=== PATIENT | male | born 1985 | race Caucasian/White ===

== ENCOUNTER 2019-07-19 08:37 | Inpatient (IN) | payer OTHER, SELFPAY ==
[2019-06-10 16:05] VITALS: BMI 34.4
--- NOTE | 2019-07-18 22:54 | PCM.HP.BLA ---
History and Physical Date of Admission: 07/19/19 HISTORY OF PRESENT ILLNESS 34 year old man presents with recent flare ups of hidradenitis in his abdominal wall skin crease. There is increased redness, and swelling, and pain. He recently completed Doxycycline antibiotics. He has associated abdominal wall skin crease intertrigo for which he uses powders for relief. He also has hidradenitis in his left axilla, bilateral inguinal/medial thigh and left gluteal/perianal areas that are intermittently symptomatic but are stable at this time. He has seen Dermatology in the past for his hidradenitis. He was placed on Rifampin and Clindamycin in the past. He has also been on Doxycycline. His infected areas have been cultured in the past. Today he denies fever. He denies trauma. Most of his painful symptomatology at this time involves his abdominal wall skin crease. Patient has diabetes mellitus, and his last HgbA1c according to the patient is 8.2 from 04/27. He presents at this time for further evaluation and treatment. PAST MEDICAL HISTORY Back problem Diabetes Fatty liver Hearing problem Hidradenitis Meniere's disease Recurrent infections Vitamin deficiency PAST SURGICAL HISTORY excision of pilonidal cyst hemilaminotomy ALLERGIES sulfamethoxazole [From Bactrim] trimethoprim [From Bactrim] MEDICATIONS aspirin calcium carb calcium carbonate-vitamin D2-minerals doxycycline hyclate famotidine glimepiride metformin omeprazole varenicline FAMILY HISTORY Uncle - Alcohol abuse Aunt - Alcohol abuse Grandfather -Alcohol abuse Sister -Anemia, Anxiety, Diabetes Mother - Anemia, Diabetes, Heart disease, CVA (cerebral vascular accident) Father - Bone cancer, COPD (chronic obstructive pulmonary disease) SOCIAL HISTORY Smoking Status: Current every day smoker counseling given: provider counseling, counseling >10 minutes alcohol intake: never substance use type: does not use REVIEW OF SYSTEMS General - Denies fever and weight loss. Has fatigue. Eyes - Denies cataracts and glaucoma. ENT - Denies nasal congestion and sore throat. Endocrine - Denies excessive thirst and urination. Patient has diabetes mellitus. Skin - Denies skin cancer. Has multiple areas of hidradenitis. Musculoskeletal - Has joint pain, joint stiffness, back pain, and arthritis. Denies weakness of muscles and joints. Neuro - Denies headaches. Has lightheadedness. Cardiovascular - Denies chest pain and shortness of breath with exertion. Has fatigue and lightheadedness. Psych - Denies anxiety and depression. Respiratory - Denies chronic cough and shortness of breath. Has sleep apnea. Patient is a smoker. Gastrointestinal - Denies nausea, vomiting, diarrhea, and constipation. Hematologic - Denies abnormal bruising and bleeding. Genitourinary - Denies hematuria and urinary frequency. PHYSICAL EXAMINATION General - Alert and Oriented. HEENT - PERRL. EOMI. Throat is clear. No suspicious lesions noted. Neck - Supple and nontender. No cervical adenopathy. No suspicious lesions noted. Lungs - Clear to auscultation. Heart - Regular rate and rhythm. Abdomen - Soft and nondistended. Has an abdominal panniculus. Has evidence of abdominal wall skin crease intertrigo. In the abdominal wall skin crease is an area of hidradenitis. Measures 15 cm. Has some yellowish drainage. Surrounding firmness from fat necrosis. Tenderness to palpation. There is induration and redness. Has hidradenitis in bilateral inguinal/medial thigh areas that is stable at present. Some induration present. Nontender. Areas measure 12 cm. Extremities - FROM. No axillary adenopathy. Radial pulses are palpable. In the left axillary area is a nodule that is consistent with hidradenitis. It is indurated. No purulent drainage. Mild redness present. No ulceration. Back - In the left gluteal/perianal area is some induration from previous hidradenitis. No purulent drainage at present. Nontender. Neuro - CN II-XII grossly intact. Psych - Normal mood and affect. ASSESSMENT 1. Abdominal wall skin crease hidradenitis with fat necrosis. 2. Abdominal panniculus. 3. Abdominal wall skin crease intertrigo. 4. Left axillary hidradenitis, stable. 5. Left gluteal/perianal hidradenitis, stable. 6. Bilateral inguinal/medial thigh hidradenitis, stable. 7. Diabetes mellitus. 8. Smoker. PLAN Recommend excision of his symptomatic hidradenitis in his abdominal wall skin crease. There is some surrounding fat necrosis and drainage consistent with a necrotizing soft tissue infection. Will send tissue to Pathology for analysis to rule out carcinoma and to Microbiology for culture. A positive culture will necessitate antibiotic therapy. With his associated abdominal panniculus, a panniculectomy will be performed as well to minimize further infection in the area. After excisional debridement of this necrotizing soft tissue infection, will leave the wound open and begin postop wound care with the VAC. After discharge he will followup at the Wound Center. The other areas of hidradenitis involving the left axilla, bilateral inguinal/medial thigh areas and left gluteal/perianal area are stable at this time. They may need to be excised in the future. Depending on the size of the wound on his left gluteal/perianal area, if there is stool contamination, then a temporary diverting colostomy will need to be done. He is aware of that and voices understanding. Until the surgery, will place him back on antibiotics. He has tolerated the Doxycycline so will renew that. If there is a plateau in the healing of the abdominal wall when seen at the Wound Center, then can proceed with delayed closure with skin grafting or advancing the abdominal wall skin flap. Before any attempts at elective wound closure are done, his HgbA1c will need to be below 8. At present it is 8.2. Surgery will be under general anesthesia with a surgical observation overnight stay in the hospital. Patient was informed of the risks and complications of the procedure including alternatives to surgery. These were discussed with the patient personally. Patient voices understanding and wishes to proceed. Some of the risks and complications were included in a form from the [employer]. Encouraged patient to stop smoking as it may have deleterious effects on wound healing.
[2019-07-19] VITALS (13 sets, daily range): BP systolic 99–144; BP diastolic 57–81; PULSE 63–100; RESP 16–18; TEMP 36.1–37.1; O2SAT 92–99; BMI 36.4
[2019-07-19] MEDS: Lactated Ringers 1,000 ML 100 ML IV ×2 (06:46→08:30)
[2019-07-19 07:06] LABS: Bedside Glucose 153 mg/dL (70-110)
[2019-07-19] MEDS: Pantoprazole Sodium 40 MG Tablet PO (07:15)
[2019-07-19] MEDS: Cefazolin 2 GM in 0.9% Normal Saline 100 ML IV (07:26)
--- NOTE | 2019-07-19 07:30 | DEB_PTH ---
PATIENT: BRITTANY YOUNG LOC: [facility] U#:[id number] AGE/SX: 34/M ROOM: [facility]319 RE07/19/[address]: Dr. Rohit Luis MD : 1985 BED: 1 DIS: 07/20/2019 SPEC #: [id number] RECD: 07/19/19 09:01 STATUS: ANYI RERoe #: [id number] AUGUST: 07/19/19 07:[address]: Rohit Luis DEPT: SURGICAL PATHOLOGY RECD BY: Yusuf Evans ENTERED: 07/19/19 10:39 SP TYPE: [facility] DR: Dr. Miryam Jensen MD Tissues: Abdominal wall, NOS Procedures: Surgery Specimen Level III HEADER OPERATION: Prep abdominal wall with excisional debridement skin subcutaneous PRE-OP DIAGNOSIS: Abdominal wall skin crease hidradenitis with fat necrosis TISSUE SUBMITTED: Debrided soft tissue abdominal wall MICROSCOPIC DIAGNOSIS Debrided soft tissue abdominal wall: A piece of skin with underlying tissue with focal mild chronic inflammation. SANDRO:krystina 07/20/19 MICROSCOPIC DESCRIPTION Slides are reviewed. GROSS DESCRIPTION Received in fixative is one container labeled with the patient's name and designated debrided soft tissue abdominal wall. The specimen consists of a piece of skin with underlying tissue measuring 30 x 15 cm and up to 5 cm in thickness. A focal area of ulceration is noted. Sections do not reveal any mass lesion. Diesel Electrician sections are submitted in two cassettes. / SANDRO:krystina 07/19/19 TC:3 CPT: 52005
--- NOTE | 2019-07-19 08:24 | OP.PCM_ITS ---
Report of Operation Date of Procedure: 07/19/19 Pre-Operative Diagnosis: 1. Abdominal wall skin crease hidradenitis with fat necrosis. 2. Abdominal panniculus. 3. Abdominal wall skin crease intertrigo. 4. Diabetes mellitus. 5. Smoker. Post-Operative Diagnosis: 1. Abdominal wall skin crease hidradenitis with necrotizing soft tissue infection. 2. Abdominal panniculus. 3. Abdominal wall skin crease intertrigo. 4. Diabetes mellitus. 5. Smoker. Surgery/Procedure Performed:: 1. Surgical preparation abdominal wall with excisional debridement skin and subcutaneous tissue and fascia necrotizing soft tissue hidradenitis infection (492 cm2). 2. Abdominal panniculectomy. Description of Surgical Findings:: 34 year old man presents with recent flare ups of hidradenitis in his abdominal wall skin crease. There is increased redness, and swelling, and pain. He recently completed Doxycycline antibiotics. He has associated abdominal wall skin crease intertrigo for which he uses powders for relief. He also has hidradenitis in his left axilla, bilateral inguinal/medial thigh and left gluteal/perianal areas that are intermittently symptomatic but are stable at this time. He has seen Dermatology in the past for his hidradenitis. He was placed on Rifampin and Clindamycin in the past. He has also been on Doxycycline. His infected areas have been cultured in the past. Today he denies fever. He denies trauma. Most of his painful symptomatology at this time involves his abdominal wall skin crease. Patient has diabetes mellitus, and his last HgbA1c according to the patient is 8.2 from 04/27. Patient was informed of the risks and complications of the procedure including alternatives to surgery. These were discussed with the patient personally. Patient voices understanding and wishes to proceed. Some of the risks and complications were included in a form from the [employer]. Encouraged patient to stop smoking as it may have deleterious effects on wound healing. Size of defect abdominal wall - 12 x 41 x 5 cm. sheriff's officer: None Type of Anesthesia:: General Specimen's removed: 1. Abdominal wall hidradenitis necrotizing soft tissue infection to Pathology and Microbiology. 2. MRSA Wound DNA by PCR. Drains: None. Estimated Blood Loss (mL): 50 ml. Description of Procedure: Patient was taken to OR in supine position and was placed under general anesthesia. The abdominal wall was prepped and draped in the usual fashion. SCD's were placed for DVT prophylaxis. Perioperative antibiotics were given intravenously. Using xylocaine with epinephrine, the abdominal wall was infiltrated. After waiting 5 minutes for the anesthetic to take effect, I proceeded with excisional debridement of the nonhealing hidradenitis infection down into the subcutaneous tissue. A lot of extensive fat necrosis was present. No pus was seen. The fat necrosis extended past Zane's fascia down to the abdominal wall fascia. This extensive fat necrosis was excised and debrided. He also has extensive abdominal wall skin crease intertrigo, and his large abdominal panniculus is at risk for further worsening infection especially with his history of diabetes mellitus. Therefore an abdominal panniculectomy was also performed from lateral abdominal wall to lateral abdominal wall and from the pubic area superiorly to the umbilicus. Tissue excised was sent to Pathology for analysis to rule out carcinoma. Tissue was also sent to [facility] obiology for culture. A positive culture will necessitate antibiotic therapy. MRSA Wound DNA by PCR was also done. The wound was irrigated with saline. Hemostasis was obtained with electrocautery. Dimensions of the abdominal wall wound after surgical preparation abdominal wall with excisional debridement skin and subcutaneous tissue and fascia necrotizing soft tissue hidradenitis infection and abdominal panniculectomy were 41 x 12 x 5 cm or 492 cm2. The wound was then dressed with Mepitel nonadherent dressing followed by Kerlix gauze and Betadine followed by dry Kerlix gauze and ABD compression dressing. An abdominal wall binder was also placed to keep the dressing in place. Patient tolerated the procedure well and was sent to PACU in satisfactory condition. Patient will be sent upstairs for continued postop care. He will continue IV antibiotics. The VAC will be placed tomorrow. Will also check a Prealbumin and encourage nutritional supplementation with protein to help the he aling process. After discharge he will followup at the Wound Center. If there is a plateau in the healing process, can proceed in a delayed fashion further operative debridement and skin grafting. Grafts/Implants Used: None. - Complications None. - Admit VTE Documentation VTE Present on Admission: No VTE Mechan Device Prophylaxis: SCD's VTE Pharm Prophylaxis ordered?: No Code Visit Surgery Charges CPT - 95582 ICD-10 - L73.2, M79.89, E11.9, F17.200 17897 E65, L30.4, L73.2, M79.89, E11.9, F17.200
[2019-07-19 09:05] LABS: Bedside Glucose 144 mg/dL (70-110)
[2019-07-19] MEDS: Ondansetron 4 MG/2 ML Vial IV (10:38)
[2019-07-19] MEDS: Cefazolin 1 GM/50 ML BAG IV ×2 (11:04→21:05)
[2019-07-19 11:13] LABS: M R Staph aureus DNA By PCR Negative (Negative); Probe Check PASS; Specimen Processing Control PASS; Staph aureus DNA By PCR NEGATIVE (Negative)
--- NOTE | 2019-07-19 11:17 | NURSING ---
Talked with who states she is a psych nurse but used to work at [employer] in [place]. feels she will be able to change the VAC dressing at home. plans on observing wound VAC application tomorrow. will see how feels after she sees the wound. may still be a good idea to have home health at least for a while to assist with the dressing changes.
[2019-07-19] MEDS: Lactated Ringers 1,000 ML 60 ML IV ×2 (12:07→21:14)
[2019-07-19] MEDS: HYDROmorphone 1 MG/ML Syringe IV ×2 (12:44→18:38)
[2019-07-19 12:46] LABS: Bedside Glucose 174 mg/dL (70-110)
[2019-07-19] MEDS: proMETHazine 25 MG Tablet PO (12:53)
--- NOTE | 2019-07-19 13:53 | CASEMGMT ---
REDD JONES updated that patient will need HHC at discharge for wound vac dressing changes. REDD JONES provided patient with list of in-network [facility] companys for patient to review. CM will continue to follow this patient and plan for a safe discharge.
[2019-07-19] MEDS: Famotidine 20 MG Tablet PO ×2 (14:26→21:07)
[2019-07-19] MEDS: metFORMIN HCl 850 MG Tablet PO (14:26)
[2019-07-19] MEDS: Pantoprazole Sodium 20 MG Tablet PO (14:26)
[2019-07-19] MEDS: oxyCODONE 5 MG Tablet 10 MG PO ×2 (16:13→21:07)
[2019-07-19] MEDS: Glimepiride 4 MG Tablet PO (16:19)
[2019-07-19 16:30] LABS: Bedside Glucose 222 mg/dL (70-110)
[2019-07-19] MEDS: Docusate Sodium 100 MG Capsule PO (21:05)
[2019-07-19] MEDS: metFORMIN HCl 500 MG Tablet PO (21:07)
[2019-07-19 22:11] LABS: Bedside Glucose 123 mg/dL (70-110)
[2019-07-20] MEDS: HYDROmorphone 1 MG/ML Syringe IV ×4 (01:16→14:52)
[2019-07-20 02:00] VITALS: BP 130/79; PULSE 90; RESP 18; TEMP 37.1; O2SAT 99
[2019-07-20] MEDS: oxyCODONE 5 MG Tablet 10 MG PO ×2 (02:05→12:16)
[2019-07-20 05:37] LABS: Hematocrit 43.3 % (40-54); Hemoglobin 14.3 g/dL (13.0-16.5); Mean Corpuscular Volume 90.8 fL (80-94); Mean Platelet Vol. 9.4 fl (6.2-12.0); Platelet Count 208 K/mm3 (150-450); RBC Distribution Width CV 12.9 % (11.6-14.6); RBC Distribution Width SD 42.5 fl (35.1-43.9); Red Blood Count 4.77 M/mm3 (4.6-6.2); White Blood Count 15.1 K/mm3 (4.4-11.0)
[2019-07-20] MEDS: Cefazolin 1 GM/50 ML BAG IV ×2 (05:38→14:51)
[2019-07-20 05:56] LABS: Bedside Glucose 112 mg/dL (70-110)
[2019-07-20 06:06] LABS: Anion Gap 7 (5-15); BUN 10 mg/dL (7-18); BUN/Creat Ratio 11.5 RATIO (10-20); Calcium,Total 8.1 mg/dL (8.5-10.1); Chloride 109 mmol/L (98-107); Creatinine, Serum 0.87 mg/dL (0.70-1.30); EST Glomerular Filtration Rate 106 mL/min (>60); Est Glom Filt Rate - Afr Amer 128 mL/min (>60); Glucose 107 mg/dL (74-106); Potassium 3.8 mmol/L (3.5-5.1); Prealbumin 16.6 mg/dL (20.0-40.0); Sodium Level 143 mmol/L (136-145)
[2019-07-20 08:57] VITALS: BP 127/71; PULSE 108; RESP 16; TEMP 37.7; O2SAT 96
[2019-07-20] MEDS: Glimepiride 4 MG Tablet PO (08:59)
[2019-07-20] MEDS: metFORMIN HCl 850 MG Tablet PO (08:59)
[2019-07-20] MEDS: Famotidine 20 MG Tablet PO (09:03)
[2019-07-20] MEDS: Docusate Sodium 100 MG Capsule PO (09:03)
[2019-07-20] MEDS: Calcium Carb/Vitamin D 1 TABLET Tablet 2 TABLET PO (09:03)
[2019-07-20 09:35] LABS: Bedside Glucose 178 mg/dL (70-110)
[2019-07-20] MEDS: Pantoprazole Sodium 20 MG Tablet PO (10:35)
[2019-07-20] MEDS: 0.9% NaCl Peripheral Flush Adult/Peds IV ×2 (10:36→14:52)
--- NOTE | 2019-07-20 10:56 | NURSING ---
Called and talked with Chanel Pelletier NP with Dr Luis. She plans to be at the hospital around 1230 or 1300 to assess wound prior to wound VAC application. Pt and aware. will discuss with REDD De La Cruz as well so pain medication can be given prior to the VAC change as well.
[2019-07-20 11:05] VITALS: O2SAT 88
[2019-07-20 11:09] VITALS: O2SAT 95
--- NOTE | 2019-07-20 13:11 | PCM.PN.SRG ---
- Physical Exam General: Alert, Oriented x3, Cooperative HEENT: Atraumatic Oral: Moist Mucosa Lungs: Normal air movement, Wheezes - Inspiratory wheeze right upper anterior lobe. Cardiovascular: Regular rate, Regular Rhythm Abdomen: Soft, Tender Extremities: No edema, Capillary Refill Less than 3 Seconds Skin: Ulcer/ Wound - Lower abdominal wound is beefy pink, looks clean, wound VAC to be applied by wound care nurse Musculoskeletal: No Tenderness to Palpation of Joints or Extremities Neurological: Neuro grossly intact Psych/Mental Status: Normal Affect, Appropriate Vital Signs Temp Pulse Resp BP Pulse Ox 99.8 F H 108 H 16 127/71 H 95 07/20/19 08:57 07/20/19 08:57 07/20/19 08:57 07/20/19 08:57 07/20/19 11:09 Oxygen Flow Rate (L/min) 2 Oxygen Delivery Method Nasal Cannula Weight: 232 lb 12.93 oz Body Mass Index (BMI) 36.4 Finger Stick Blood Glucose 144 Intake and Output for Last 24 Hours 07/18/19 07/19/19 07/20/19 23:59 23:59 23:59 Intake Total 3531.00 / 3531.00 643 / 643 Balance 3531.00 / 3531.00 643 / 643 Microbiology Past 72 Hours 07/19/19 08:30 Gram Stain - Final Tissue - Abdominal Wound Culture - Preliminary No growth-Final to follow Laboratory Tests Past 24 Hrs 07/20/19 07/20/19 05:28 05:28 WBC 15.1 H RBC 4.77 Hgb 14.3 Hct 43.3 MCV 90.8 MCH 30.0 MCHC 33.0 RDW Std Deviation 42.5 RDW Coeff of Cindi 12.9 Plt Count 208 MPV 9.4 Sodium 143 Potassium 3.8 Chloride 109 H Carbon Dioxide 27.0 Anion Gap 7 BUN 10 Creatinine 0.87 Estim Creat Clear Calc 110.80 Est GFR (MDRD) Af Amer 128 Est GFR (MDRD) Non-Af 106 BUN/Creatinine Ratio 11.5 Glucose 107 H Calcium 8.1 L Prealbumin 16.6 L POC Glucose 07/20/19 07/20/19 07/19/19 08:54 05:49 21:08 POC Glucose 178 H 112 H 123 H 07/19/19 16:15 POC Glucose 222 H Medical Necessity - Tobacco Use Smoking Status: Current every day smoker Tobacco Use: Cigarettes Assessment/Plan Post op day #1 for surgical preparation abdominal wall with excisional debridement skin and subcutaneous tissue and fascia necrotizing soft tissue hidradenitis infection (492 cm2) and abdominal panniculectomy. Patient is doing well. He is sitting up in bed eating lunch. He states that his pain has been controlled with the pain medication. Patient would like to be discharged to home. That should occur later today. Wound is beefy pink and clean. Wound VAC applied by wound care nurse. Labs reviewed. WBC 15.1. Prealbumin 16.6. Operative cultures are currently negative. He is currently receiving Cefazolin. Encouraged incentive spirometer. 1. Abdominal wall skin crease hidradenitis with fat necrosis. 2. Abdominal panniculus. 3. Abdominal wall skin crease intertrigo. 4. Left axillary hidradenitis, stable. 5. Left gluteal/perianal hidradenitis, stable. 6. Bilateral inguinal/medial thigh hidradenitis, stable. 7. Diabetes mellitus. 8. Smoker
--- NOTE | 2019-07-20 13:39 | DCINST_ITS ---
You will use the following diet at home:: Calorie/Carbohydrate Controlled (specify 1200, 1400, etc), Other - encourage nutritional supplementation with protein to help the healing process. Discharge Activity: May Not Drive, May Shower - on the days the vac is changed. May shower in (days): 3 - may shower on the days the vac is changed. May resume sexual activity in: No Restrictions Weight Bearing Status: Weight bearing as tolerated Additional Activity Instructions:: Home Health to assist with VAC changes three times per week at 150 mmHg continuous suction. May cleanse the wound with soap and water at the time of the vac change. Call your doctor if your incision/area has: Continuous Slow Oozing, Sudden Increased Bleeding, Increased Pain/ Swelling, Increased Redness, Foul Smelling Discharge, Swelling at the incision site Call your doctor if you observe: Fever of 101 or Higher, Coldness, Increased Pain, Shortness of breath, Chest pain, Calf discomfort, Uncontrolled pain Suture Line Care: - - vac changes three times per week at 150 mmHg continuous suction. Cleanse incision/area with: Soap & Water - may cleanse the wound with soap and water at the time of the vac change., - - may shower on the days the vac is changed. 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[employer] helicopter 0.5 mg-[place]-Zn tablet 2 tab PO DAILY 06/10/19 famotidine 20 mg tablet 20 mg PO BID 06/10/19 glimepiride 2 mg tablet 4 mg PO QAM 06/10/19 metformin 500 mg tablet 850 mg PO DAILY 06/10/19 omeprazole 20 mg capsule,delayed release 20 mg PO DAILY 06/10/19 Ergocalciferol [Vitamin D] 50,000 unit PO Q7D 07/12/19 Metformin HCl 500 mg PO QHS 07/12/19 Diazepam [Valium] 5 mg PO 4X/DAY PRN PRN #30 tab 07/20/19 Docusate Sodium [Colace] 100 mg PO BID #60 cap 07/20/19 Doxycycline Hyclate 100 mg PO DAILY #60 cap 07/20/19 HYDROmorphone tablet [Dilaudid] 2 - 4 mg PO 4X/DAY PRN PRN 7 Days #50 tab 07/20/19 proMETHazine tablet [Phenergan tablet] 25 mg PO 4X/DAY PRN PRN #30 tab 07/20/19 The following prescriptions were given: Docusate Sodium [Colace] 100 mg PO BID #60 cap Prescription Printed HYDROmorphone tablet [Dilaudid] 2 - 4 mg PO 4X/DAY PRN PRN 7 Days #50 tab PRN Reason: Pain Prescription Printed Doxycycline Hyclate 100 mg PO DAILY #60 cap Prescription Printed proMETHazine tablet [Phenergan tablet] 25 mg PO 4X/DAY PRN PRN #30 tab PRN Reason: NAUSEA/VOMITING Prescription Printed Diazepam [Valium] 5 mg PO 4X/DAY PRN PRN #30 tab PRN Reason: Spasms Prescription Printed Primary Care Physician: Miryam Jensen [Primary Care Provider] - Test Results: Test results from this visit will be discussed in further detail at your follow- up appointment, if applicable. Please Follow Up With: Rohit Luis MD When: one week at wound center. call [phone] for appt. Proposed Discharge Date: 07/20/19
--- NOTE | 2019-07-20 14:01 | NURSING ---
wound photo: lower abdomen
[2019-07-20 14:42] VITALS: BP 132/67; PULSE 97; RESP 16; TEMP 37.4; O2SAT 100
== END 2019-07-20 16:33 | disposition home or self-care (01) | DRG 358 ==
LOC: SDC 09:22 → MS3 13:23
PROVIDERS: Admitting Provider Surgery; Family Provider Internal Medicine; PCP Internal Medicine; Referring Provider Surgery; Visit Provider Surgery
PROC: 0JB80ZZ Excision of Abdomen Subcutaneous Tissue and Fascia, Open Approach (ICD-10-PCS; principal; 2019-07-19 07:15)
DX: K65.4 Sclerosing mesenteritis (principal); L73.2 Hidradenitis suppurativa; L30.4 Erythema intertrigo; E11.9 Type 2 diabetes mellitus without complications; E56.9 Vitamin deficiency, unspecified; H81.09 Meniere's disease, unspecified ear; K76.0 Fatty (change of) liver, not elsewhere classified; Z79.82 Long term (current) use of aspirin; Z79.84 Long term (current) use of oral hypoglycemic drugs; Z79.899 Other long term (current) drug therapy; G47.30 Sleep apnea, unspecified; F17.210 Nicotine dependence, cigarettes, uncomplicated
CPT/HCPCS: 36415; 80048; 82962; 84134; 85027; 87070; 87075; 87077; 87102; 87186; 87205; 87206; 87640; 88304; 99406; J7120; A4216; J2405

== ENCOUNTER 2019-07-25 09:07 | Outpatient (RCR) | payer OTHER, SELFPAY ==
[2019-07-19 10:02] VITALS: BMI 36.4
[2019-07-25 09:30] VITALS: BP 159/83; PULSE 113; RESP 18; TEMP 36.4; BMI 35.2
--- NOTE | 2019-07-25 13:28 | PCM.WC.HP ---
(1) Abdominal panniculus Status: Chronic Code(s): E65 - Localized adiposity (2) Hidradenitis suppurativa Status: Chronic Code(s): L73.2 - Hidradenitis suppurativa Comment: abdominal wall skin crease bilateral inguinal/medial thighs (3) Intertrigo Status: Chronic Code(s): L30.4 - Erythema intertrigo Comment: abdominal wall skin crease intertrigo (4) Diabetes Status: Chronic Code(s): E11.9 - Type 2 diabetes mellitus without complications (5) Smoker Status: Chronic Code(s): F17.200 - Nicotine dependence, unspecified, uncomplicated History of Present Illness Date of Service: 07/25/19 Chief Complaint: Opened lower abdominal surgical wound History of Wound: On 07/19/19 had surgical preparation abdominal wall with excisional debridement skin and subcutaneous tissue and fascia necrotizing soft tissue hidradenitis infection and abdominal pannculectomy. He was discharged home with the wound VAC. He was having increased pain a couple days after being home and the VAC was discontinued and daily wet to dry dressings were ordered. His placed the wound VAC back on 2 days ago because all the dressing changes were extremely painful for him. He is having difficulty getting his pain undercontrol and he is having increasing anxiety related to the dressing changes. Current abdominal wound care is VAC changes. Past Medical History Past Medical History: Chronic Problems (Last Reviewed 07/29/19 @ 00:16 by Tyron Yang MD) Abdominal panniculus (Chronic) Intertrigo (Chronic) abdominal wall skin crease intertrigo Necrotizing soft tissue infection (Chronic) Diabetes (Chronic) Smoker (Chronic) Hidradenitis suppurativa (Chronic) abdominal wall skin crease bilateral inguinal/medial thighs Left axillary hidradenitis (Chronic) Hidradenitis suppurativa of anus (Chronic) Allergies/Adverse Reactions: Allergies sulfamethoxazole [From Bactrim] Allergy (Severe, Verified 07/28/19 09:55) BODY RASH trimethoprim [From Bactrim] Allergy (Severe, Verified 07/28/19 09:55) BODY RASH Home Medications: Ambulatory Orders Medication Instructions Recorded calcium carb 300 mg-D3 800 2 tab PO DAILY 06/10/19 unit-mag ox 25 mg-endoscopy nurse 0.5 mg-[place]-Zn tablet famotidine 20 mg tablet 20 mg PO BID 06/10/19 omeprazole 20 mg capsule,delayed 20 mg PO DAILY 06/10/19 release Ergocalciferol [Vitamin D] 50,000 unit PO FR 07/12/19 Metformin HCl 500 mg PO QHS 07/12/19 Diazepam [Valium] 5 mg PO 4X/DAY PRN PRN #30 tab 07/20/19 proMETHazine tablet [Phenergan 25 mg PO 4X/DAY PRN PRN #30 tab 07/20/19 tablet] amoxicillin 875 mg-potassium 1 tab PO BID 14 Days #28 tab 07/26/19 clavulanate 125 mg tablet fentanyl 50 mcg/hr transdermal 1 patch TRANSDERMAL Q72H #5 ea 07/27/19 patch Docusate Sodium [Colace] 100 mg PO DAILY 07/28/19 Glimepiride 4 mg PO DAILY 07/28/19 Metformin HCl 850 mg PO DAILY 07/28/19 Smoking Status: Former smoker Review of Systems Constitutional: Reports: Fatigue. Denies: Chills, Fever, Weight Change Eyes: Denies: Pain, Vision Change HEENT: Denies: Difficulty Hearing, Difficulty Swallowing, Sinus Congestion Cardiovascular: Denies: Chest Pain, Palpitations Respiratory: Denies: Cough, Shortness of Breath Gastrointestinal: Denies: Diarrhea, Nausea, Vomiting Musculoskeletal: Reports: Muscle pain Skin: Reports: Wounds - lower abdominal surgical wound Neurological: Denies: Balance problems Psychiatric: Reports: Anxiety Endocrine: Denies: Heat/ Cold Intolerance, Polydipsia, Polyuria - Physical Exam Vital Signs Temp Pulse Resp BP 97.5 F L 113 H 18 159/83 H 07/25/19 09:30 07/25/19 09:30 07/25/19 09:30 07/25/19 09:30 General: Alert, Oriented x3 HEENT: Atraumatic Oral: Moist Mucosa Lungs: Normal air movement Cardiovascular: Regular rate Abdomen: Soft Extremities: No edema Skin: Ulcer/ Wound - Lower abdominal wound beefy red. Wound Measurements and Assessment WC - Nurse 1 - General Ulcer Measurement Start: 07/25/19 09:29 Freq: Status: Active Protocol: Activity Type Activity Date Activity User E-Sign Co-Sign Detail Recorded Client Recorded Date Recorded By Document 07/25/19 09:30 [facility] [id number] 07/25/19 09:51 BM 07/25/19 09:30 Wound Center Nurse 1 [Ulcer Assessment] #1- ABDOMEN -Combined with other wound No -Current Size (cm) - Length 5 -Current Size (cm) - Width 47 -Current Size (cm) - Depth 4.5 -Total Square Cm 235 -Date of Last Picture (Recall this 07/25/19 field) -Photo Taken Yes -Epithelialization None Present -Tunneling No -Undermining/Tunneling No -Circular Undermining No -Exudate Amt Large -Exudate Type Sanguineous -Wound Margin Distinct, Outline Attached -Granulation Amt Large (67-100%) -Granulation Quality Red -Slough/Fibrin Yes -Necrosis Amt Small (1-33%) -Necrotic Tissue Type Adherent Slough -Texture (Kassandra-wound Skin Appearance) Assessed -Moisture (Kassandra-wound Skin Appearance Assessed ) -Color (Kassandra-wound Skin Appearance) Assessed -Temperature (Kassandra-wound Skin No Abnormality Appearance) (Pt Warm) -Tenderness on Palpation (Kassandra-wound Yes Skin Appearance) -Ulcer Cleansing SOAP AND WATER -Foul Odor after Cleansing No -Anesthetic Used 4% Lidocaine Solution - Nurse 2 - General Ulcer CM Notes Start: 07/25/19 09:29 Freq: Status: Active Protocol: Activity Type Activity Date Activity User E-Sign Co-Sign Detail Recorded Client Recorded Date Recorded By Document 07/25/19 10: JF [id number] 07/25/19 10: 07/25/19 10:19 Wound Center Nurse 2 [Procedure/Treatment] -Correct Patient No -Correct Side, Site, Position No -Correct Procedure No -Procedure Performed No -Wound/Ulcer Outcome Not Healed [See Physician Procedure note for Specifics] Pain Scale: 0-10 Numeric [Pain] -Is Patient Pain Free? Yes Musculoskeletal: Tenderness Neurological: Neuro grossly intact Psych/Mental Status: Anxious Debridement Note Post-Debridement Measurements/Treatment - Nurse 2 - General Ulcer CM Notes Start: 07/25/19 09:29 Freq: Status: Active Protocol: Activity Type Activity Date Activity User E-Sign Co-Sign Detail Recorded Client Recorded Date Recorded By Document 07/25/19 10:19 JF [id number] 07/25/19 10:26 07/25/19 10:19 Wound Center Nurse 2 #1- ABDOMEN -Correct Patient No -Correct Side, Site, Position No -Correct Procedure No -Procedure Performed No -Wound/Ulcer Outcome Not Healed Pain Scale: 0-10 Numeric Is Patient Pain Free? Yes No debridement was completed today Assessment/Plan Assessment: 1. Abdominal panniculus. 2. Hidradenitis suppurativa. 3. Intertrigo. 4. Diabetes. 5. Smoker Plan: Wound care will continue the wound VAC at 150 mmHg. Offered to have adaptic placed in the base of wound bed to help decrease the discomfort but patient declined stating that it did not help after he was discharged from the hospital. Wound cultures from surgery positive for Step anginosus and Actinomyces meyeri. Will start him on Augmentin twice daily. Instructed him to work on relaxation and deep breathing to help get his pain and anxiety undercontrol. He almost is hyperventilating during dressing changes. Will renew his Dilaudid (42) and Valium (30). OARRS report reviewed. Instructed patient and his to start taking the dilaudid more regularly instead of waiting for the pain to get so bad that it is more difficult to control. Aslo discussed taking the Valium around the clock to help with muscle spasm and maybe it will also help with his anxiety. OK to also alternate tylenol and ibuprofen throughout the day. Instructed his to call the office tomorrow to let us know if his pain is getting better undercontrolled. Code Visit [id number]
== END 2019-08-08 23:59 ==
LOC: WC 09:07
PROVIDERS: Family Provider Internal Medicine; PCP Internal Medicine; Visit Provider Nurse Practitioner Family
DX: E65 Localized adiposity (principal); L73.2 Hidradenitis suppurativa; L30.4 Erythema intertrigo; F17.200 Nicotine dependence, unspecified, uncomplicated; E11.9 Type 2 diabetes mellitus without complications
CPT/HCPCS: 97606; 99214; G0463

== ENCOUNTER 2019-07-28 09:54 | Inpatient (IN) | payer OTHER, SELFPAY ==
[2019-07-28 09:56] VITALS: BP 145/73; PULSE 121; RESP 17; TEMP 37.3; O2SAT 93; BMI 35.2
--- NOTE | 2019-07-28 10:21 | EKG12_ITS ---
Test Reason : FEVER Blood Pressure : / mmHG Vent. Rate : 109 BPM Atrial Rate : 109 BPM P-R Int : 150 ms QRS Dur : 100 ms QT Int : 358 ms P-R-T Axes : 026 -09 009 degrees QTc Int : 482 ms Sinus tachycardia Minimal voltage criteria for LVH, may be normal variant Borderline ECG Confirmed by ROSALIE ADAN, GENI ([id number]), editor greeting card DANTE MARTIN ([id number]) on 07/29/2019 1:24:15 PM Referred By: Rohit Luis Confirmed By:BRENDON WIGGINS MD
--- NOTE | 2019-07-28 10:35 | RAD_ITS ---
STUDY: X-RAY CHEST REASON FOR EXAM: Male, 34 years old. Cough and fever. TECHNIQUE: Single AP portable view of the chest. COMPARISON: None. FINDINGS: There is elevation of the right hemidiaphragm. Increasing markings at the left lung base suggestive of improving atelectasis and/or scarring There is no demonstrated pleural abnormality. Normal size heart. Normal mediastinum and solitario. Normal visualized pulmonary arteries. Normal visualized aortic arch and descending thoracic aorta. Normal visualized thoracic spine. Normal visualized ribs, clavicles, and shoulders. There is no demonstrated abnormality of the visualized soft tissue structures of the upper abdomen. RAD/Chest 1 View (Portable) IMPRESSION: Mild increased linear markings at the left lung base suggestive of early atelectasis and/or scarring. Electronically Signed: Abdias Goldstein, at 10:51 EDT , Service support ,
[2019-07-28] MEDS: 0.9% Normal Saline 1,000 ML 999 ML IV ×2 (11:06→12:59)
[2019-07-28] MEDS: HYDROmorphone 1 MG/ML Syringe IV ×2 (11:07→18:16)
[2019-07-28 11:11] VITALS: BP 98/52; PULSE 101; PULSE 103; RESP 16; RESP 26; TEMP 37.2; O2SAT 92
[2019-07-28 11:11] LABS: Absolute Lymphocyte Count 1.52 X10^3/uL (0.83-4.51); Absolute Neutrophil Count 10.7 X10^3/uL (2.0-7.7); Basophil# 0.06 X10^3/uL; Basophil% 0.4 % (0-1); Eosinophil# 0.43 X10^3/uL; Hematocrit 42.8 % (40-54); Hemoglobin 14.4 g/dL (13.0-16.5); Lymphocyte # 1.52 X10^3/ul (4.0); Lymphocyte % 10.7 % (19-41); Mean Corp Hgb Conc 33.6 g/dL (32-36); Mean Corpuscular Hgb 30.1 pg (27.0-32.0); Mean Corpuscular Volume 89.5 fL (80-94); Mean Platelet Vol. 9.2 fl (6.2-12.0); Monocyte# 1.34 X10^3/uL; Monocyte% 9.5 % (0-10); NRBC Flagged by Analyzer 0 % (0-5); Neutrophil # 10.72 X10^3/uL (2.7-7.7); Neutrophil % 75.9 % (47-70); Platelet Count 356 K/mm3 (150-450); RBC Distribution Width CV 12.8 % (11.6-14.6); RBC Distribution Width SD 41.8 fl (35.1-43.9); Red Blood Count 4.78 M/mm3 (4.6-6.2); White Blood Count 14.1 K/mm3 (4.4-11.0)
[2019-07-28 11:17] LABS: International Normalized Ratio 1.1; Partial Thromboplast Time 34.8 Seconds (24.1-36.2); Prothrombin Time (Protime)PT. 13.7 SECONDS (11.7-14.9)
[2019-07-28 11:30] LABS: ALB/GLOB Ratio 0.7 RATIO (0.9-2.4); AST(SGOT) 11 U/L (15-37); Alanine Aminotransfer ALT/SGPT 32 U/L (16-61); Albumin, Serum 2.9 g/dL (3.2-5.0); Alkaline Phosphatase 89 U/L (45-117); Anion Gap 7 (5-15); BUN 12 mg/dL (7-18); BUN/Creat Ratio 11.2 RATIO (10-20); Calcium,Total 8.7 mg/dL (8.5-10.1); Chloride 106 mmol/L (98-107); Creatinine, Serum 1.07 mg/dL (0.70-1.30); EST Glomerular Filtration Rate 83 mL/min (>60); Est Glom Filt Rate - Afr Amer 101 mL/min (>60); Estimated Creatinine Clearance 90.09 ml/min; Globulin 4.2 g/dL (2.2-4.2); Glucose 259 mg/dL (74-106); Potassium 3.7 mmol/L (3.5-5.1); Protein, Total 7.1 g/dL (6.4-8.2); Sodium Level 138 mmol/L (136-145)
[2019-07-28 11:38] LABS: Lactic Acid 2.5 mmol/L (0.4-2.0)
[2019-07-28 12:00] VITALS: BP 107/61; PULSE 88; RESP 19; TEMP 36.9; O2SAT 95
[2019-07-28 12:56] LABS: Bacteria 0 SEEN /hpf (None Seen); Mucous, Urine 0 SEEN /hpf (<or=2+); Red Blood Cells-Urine 0 SEEN /hpf (0-5); Squamous Epithelial Cells - UA 0 SEEN /hpf (0-5); White Blood Cells 0 SEEN /hpf (0-5)
[2019-07-28 13:03] LABS: Color, Urine Yellow (Yellow); Glucose, Dipstick 250 mg/dl (Normal); Ketone-Dipstick 5 mg/dl (Negative); Leukocyte Esterase-Dipstick Negative /ul (Negative); Nitrite-Dipstick Negative (Negative); Occult Blood-Urine Negative /ul (Negative); Protein-Dipstick 15 mg/dl (Negative); Specific Gravity, Urine 1.025 (1.002-1.030); Urine Bilirubin Dipstick Negative (Negative); Urine Clarity Sl. Cloudy (Clear); Urine Urobilinogen 4 mg/dl (Normal)
[2019-07-28 14:00] VITALS: BP 110/79; PULSE 86; RESP 22; TEMP 37.2; O2SAT 94
[2019-07-28 14:59] VITALS: BP 98/70; PULSE 78; RESP 19; TEMP 36.4; O2SAT 93
[2019-07-28 15:03] LABS: Reflex Lactate? Y
[2019-07-28 15:51] VITALS: BMI 35.2
--- NOTE | 2019-07-28 15:52 | PCM.HP.BLA ---
History and Physical Date of Admission: 07/28/19 Date of Admission: 07/19/19 HISTORY OF PRESENT ILLNESS 34 year old man presents with recent flare ups of hidradenitis in his abdominal wall skin crease. There is increased redness, and swelling, and pain. He recently completed Doxycycline antibiotics. He has associated abdominal wall skin crease intertrigo for which he uses powders for relief. He also has hidradenitis in his left axilla, bilateral inguinal/medial thigh and left gluteal/perianal areas that are intermittently symptomatic but are stable at this time. He has seen Dermatology in the past for his hidradenitis. He was placed on Rifampin and Clindamycin in the past. He has also been on Doxycycline. His infected areas have been cultured in the past. Today he denies fever. He denies trauma. Most of his painful symptomatology at this time involves his abdominal wall skin crease. Patient has diabetes mellitus, and his last HgbA1c according to the patient is 8.2 from 04/27. He presents at this time for further evaluation and treatment. PAST MEDICAL HISTORY Back problem Diabetes Fatty liver Hearing problem Hidradenitis Meniere's disease Recurrent infections Vitamin deficiency PAST SURGICAL HISTORY excision of pilonidal cyst hemilaminotomy ALLERGIES sulfamethoxazole [From Bactrim] trimethoprim [From Bactrim] MEDICATIONS aspirin calcium carb calcium carbonate-vitamin D2-minerals doxycycline hyclate famotidine glimepiride metformin omeprazole varenicline FAMILY HISTORY Uncle - Alcohol abuse Aunt - Alcohol abuse Grandfather -Alcohol abuse Sister -Anemia, Anxiety, Diabetes Mother - Anemia, Diabetes, Heart disease, CVA (cerebral vascular accident) Father - Bone cancer, COPD (chronic obstructive pulmonary disease) SOCIAL HISTORY Smoking Status: Current every day smoker counseling given: provider counseling, counseling >10 minutes alcohol intake: never substance use type: does not use REVIEW OF SYSTEMS General - Denies fever and weight loss. Has fatigue. Eyes - Denies cataracts and glaucoma. ENT - Denies nasal congestion and sore throat. Endocrine - Denies excessive thirst and urination. Patient has diabetes mellitus. Skin - Denies skin cancer. Has multiple areas of hidradenitis. Musculoskeletal - Has joint pain, joint stiffness, back pain, and arthritis. Denies weakness of muscles and joints. Neuro - Denies headaches. Has lightheadedness. Cardiovascular - Denies chest pain and shortness of breath with exertion. Has fatigue and lightheadedness. Psych - Denies anxiety and depression. Respiratory - Denies chronic cough and shortness of breath. Has sleep apnea. Patient is a smoker. Gastrointestinal - Denies nausea, vomiting, diarrhea, and constipation. Hematologic - Denies abnormal bruising and bleeding. Genitourinary - Denies hematuria and urinary frequency. PHYSICAL EXAMINATION General - Alert and Oriented. HEENT - PERRL. EOMI. Throat is clear. No suspicious lesions noted. Neck - Supple and nontender. No cervical adenopathy. No suspicious lesions noted. Lungs - Clear to auscultation. Heart - Regular rate and rhythm. Abdomen - Soft and nondistended. Has an abdominal panniculus. Has evidence of abdominal wall skin crease intertrigo. In the abdominal wall skin crease is an area of hidradenitis. Measures 15 cm. Has some yellowish drainage. Surrounding firmness from fat necrosis. Tenderness to palpation. There is induration and redness. Has hidradenitis in bilateral inguinal/medial thigh areas that is stable at present. Some induration present. Nontender. Areas measure 12 cm. Extremities - FROM. No axillary adenopathy. Radial pulses are palpable. In the left axillary area is a nodule that is consistent with hidradenitis. It is indurated. No purulent drainage. Mild redness present. No ulceration. Back - In the left gluteal/perianal area is some induration from previous hidradenitis. No purulent drainage at present. Nontender. Neuro - CN II-XII grossly intact. Psych - Normal mood and affect. ASSESSMENT 1. Abdominal wall skin crease hidradenitis with fat necrosis. 2. Abdominal panniculus. 3. Abdominal wall skin crease intertrigo. 4. Left axillary hidradenitis, stable. 5. Left gluteal/perianal hidradenitis, stable. 6. Bilateral inguinal/medial thigh hidradenitis, stable. 7. Diabetes mellitus. 8. Smoker. PLAN Recommend excision of his symptomatic hidradenitis in his abdominal wall skin crease. There is some surrounding fat necrosis and drainage consistent with a necrotizing soft tissue infection. Will send tissue to Pathology for analysis to rule out carcinoma and to Microbiology for culture. A positive culture will necessitate antibiotic therapy. With his associated abdominal panniculus, a panniculectomy will be performed as well to minimize further infection in the area. After excisional debridement of this necrotizing soft tissue infection, will leave the wound open and begin postop wound care with the VAC. After discharge he will followup at the Wound Center. The other areas of hidradenitis involving the left axilla, bilateral inguinal/medial thigh areas and left gluteal/perianal area are stable at this time. They may need to be excised in the future. Depending on the size of the wound on his left gluteal/perianal area, if there is stool contamination, then a temporary diverting colostomy will need to be done. He is aware of that and voices understanding. Until the surgery, will place him back on antibiotics. He has tolerated the Doxycycline so will renew that. If there is a plateau in the healing of the abdominal wall when seen at the Wound Center, then can proceed with delayed closure with skin grafting or advancing the abdominal wall skin flap. Before any attempts at elective wound closure are done, his HgbA1c will need to be below 8. At present it is 8.2. Surgery will be under general anesthesia with a surgical observation overnight stay in the hospital. Patient was informed of the risks and complications of the procedure including alternatives to surgery. These were discussed with the patient personally. Patient voices understanding and wishes to proceed. Some of the risks and complications were included in a form from the [employer]. Encouraged patient to stop smoking as it may have deleterious effects on wound healing.
--- NOTE | 2019-07-28 16:04 | ED.VISSUMM ---
- ER Visit Summary Date of Service: 07/28/19 Chief Complaint: Fever History of Present Illness: The patient is a 34 M who underwent panniculectomy with Dr. manriquez due to hidradenitis his lower abdomen. He was unable to tolerate the wound VAC due to pain. He did have a fever last evening and into today. He notes a very slight cough. States that the pain is not been out of bed much. Or Dilaudid did contact Dr. tobar for pain control and fentanyl patch was ordered but he has not yet picked it up. He notes the pain to the surgical site but the is been doing excellent wound care notes there has not been any significant drainage and serosanguineous. She states that on his buttock there are additional hidradenitis wounds that were not operated on and she states that because he has been laying in bed they have gotten worse have not been draining. The gave the patient Tylenol around 7:00 this morning Physical Examination: Temperature 99.1 heart rate of 121 respirations are 17 pulse ox 93% on room air blood pressure 145/73 Gen: Well-nourished well-developed Head: Normocephalic atraumatic Eyes: Perrl EOMI ENT: TMs clear no rhinorrhea moist mucous membranes Neck: Supple no lymphadenopathy no JVD nontender CVS: Regular rate rhythm no murmurs normal S1-S2 Respiratory: No distress clear to auscultation bilaterally chest nontender Abdomen: Soft open surgical wound on the lower abdomen. There is no significant erythema. Granulation tissue is forming. Nondistended normal bowel sounds no masses Back: Left buttock demonstrates a large amount of bloody purulent material draining near the midline. Extremity: Nontender no edema Skin: Normal color no rash Neuro: alert orientated ?3 CN II-XII intact normal strength sensation Psych: Normal affect normal mood Test Results: White count 14.1. Glucose of 259. Lactic acid 2.5. Urinalysis negative. Chest x-ray showed some minimal atelectatic-like changes in the left lower lobe Emergency Department Course and Treatment: The patient received IV fluids Dilaudid vancomycin and Zosyn. Wound culture was obtained and sent. I spoke with Dr. dayanna Burirs for plastic surgery who is excepted the patient in service and I spoke with Dr. Newsome who will consult. Impression: 1. Left gluteal hidradenitis 2. Sepsis This note was generated with [employer] dictation software. It may contain incorrect words, spelling, and punctuation that were not noted in review of the chart prior to signing
[2019-07-28 16:25] VITALS: BMI 36.2
[2019-07-28] MEDS: Lactated Ringers 1,000 ML 100 ML IV (18:15)
[2019-07-28] MEDS: DAKIN'S SOL HALF STRENGTH (=0.25%) 1 APPLIC TOPICAL (18:15)
[2019-07-28] MEDS: diazePAM 5 MG Tablet PO (20:08)
--- NOTE | 2019-07-28 20:52 | PCM.RX.CS ---
Consult Pharmacy has been consulted to manage selected antiobiotic: Vancomycin Type of Consult: New start Suspected Infection: Sepsis Prior Doses of Antibiotics Received/Current Regimen: Received 2000mg iv x 1 in ER 07.28.19 @6099. Labs: Sodium 138 mmol/L (136-145) 07/28/19 10:55 Potassium 3.7 mmol/L (3.5-5.1) 07/28/19 10:55 Chloride 106 mmol/L (98-107) 07/28/19 10:55 Carbon Dioxide 25.0 mmol/L (21.0-32.0) 07/28/19 10:55 Anion Gap 7 (5-15) 07/28/19 10:55 BUN 12 mg/dL (7-18) 07/28/19 10:55 Creatinine 1.07 mg/dL (0.70-1.30) 07/28/19 10:55 Est GFR (MDRD) Af Amer 101 mL/min (>60) 07/28/19 10:55 Est GFR (MDRD) Non-Af 83 mL/min (>60) 07/28/19 10:55 BUN/Creatinine Ratio 11.2 RATIO (10-20) 07/28/19 10:55 Glucose 259 mg/dL (74-106) H 07/28/19 10:55 Weight used for dosin kg Estimated Creatinine Clearance: ~90ml/min Goal Trough: 15-20 mcg/mL Pharmacy Plan for Drug Dosing: Will begin 2000mg iv q12h. Vancomycin trough level is ordered for Sat . before 4th dose. Pharmacy Service will continue to monitor and adjust dosing as required. Follow-Up Labs: Trough Vancomycin - 07.30.19 @0330 before 0400 dose
[2019-07-28 21:00] VITALS: BP 108/72; PULSE 93; RESP 16; TEMP 37.1; O2SAT 99
--- NOTE | 2019-07-28 22:06 | CON.PCM_ITS ---
Problem List (1) Severe sepsis Status: Acute Reason for Consult Date of Consultation: 07/28/19 Reason for Consultation: severe sepsis History of Present Illness: The patient is a 34 year old M with a significant history of hidradenitis status post panniculectomy who presented to the emergency department with a temperature of 102. Importantly patient had panniculectomy of his lower abdominal wall on 07/19/2019. He had a wound VAC that after that. He had multiple panic attack with wound VAC changes at home. This panic attack includes shaking spell; vision changes and shortness of breath. Patient reports a copious drainage from his gluteal cleft. Also he has excruciating pain in between the gluteal folds. Patient was on oral antibiotics at home. At the Emergency Department patient was started on vancomycin and Zosyn. The same antibiotics was continued by Dr. Luis . Past Medical History Past Medical History (Chronic Problems): Chronic Problems (Last Reviewed 07/29/19 @ 00:16 by Tyron Yang MD) Abdominal panniculus (Chronic) Intertrigo (Chronic) abdominal wall skin crease intertrigo Necrotizing soft tissue infection (Chronic) Diabetes (Chronic) Smoker (Chronic) Hidradenitis suppurativa (Chronic) abdominal wall skin crease bilateral inguinal/medial thighs Left axillary hidradenitis (Chronic) Hidradenitis suppurativa of anus (Chronic) Medical History: Medical History (Last Reviewed 07/29/19 @ 00:16 by Tyron Yang MD) Back problem M53.9 Diabetes E11.9 Fatty liver K76.0 Hearing problem H91.90 Hidradenitis L73.2 Meniere's disease H81.09 Recurrent infections B99.9 Vitamin deficiency E56.9 Allergies sulfamethoxazole [From Bactrim] Allergy (Severe, Verified 07/28/19 09:55) BODY RASH trimethoprim [From Bactrim] Allergy (Severe, Verified 07/28/19 09:55) BODY RASH Home Medications: Ambulatory Orders Medication Instructions Recorded calcium carb 300 mg-D3 800 2 tab PO DAILY 06/10/19 unit-mag ox 25 mg-helicopter repairer 0.5 mg-[place]-Zn tablet famotidine 20 mg tablet 20 mg PO BID 06/10/19 omeprazole 20 mg capsule,delayed 20 mg PO DAILY 06/10/19 release Ergocalciferol [Vitamin D] 50,000 unit PO FR 07/12/19 Metformin HCl 500 mg PO QHS 07/12/19 Diazepam [Valium] 5 mg PO 4X/DAY PRN PRN #30 tab 07/20/19 HYDROmorphone tablet [Dilaudid] 2 - 4 mg PO 4X/DAY PRN PRN 7 Days 07/20/19 #50 tab proMETHazine tablet [Phenergan 25 mg PO 4X/DAY PRN PRN #30 tab 07/20/19 tablet] amoxicillin 875 mg-potassium 1 tab PO BID 14 Days #28 tab 07/26/19 clavulanate 125 mg tablet fentanyl 50 mcg/hr transdermal 1 patch TRANSDERMAL Q72H #5 ea 07/27/19 patch Docusate Sodium [Colace] 100 mg PO DAILY 07/28/19 Glimepiride 4 mg PO DAILY 07/28/19 Metformin HCl 850 mg PO DAILY 07/28/19 Surgical History: Surgical History (Last Reviewed 07/29/19 @ 00:16 by Tyron Yang MD) History of excision of pilonidal cyst Z98.890 2013 Status post hemilaminotomy Z98.890 2015 Lives: With Family Smoking Status: Former smoker - *Family History Maternal Family History: Family History (Last Reviewed 07/29/19 @ 00:17 by Tyron Yang MD) Uncle Alcohol abuse Aunt Alcohol abuse Grandfather Alcohol abuse Sister Anemia Anxiety Diabetes Mother Anemia Diabetes Heart disease CVA (cerebral vascular accident) Father Bone cancer COPD (chronic obstructive pulmonary disease) Review of Systems Constitutional: Reports: Anorexia, Chills, Fever. Denies: Weight Change HEENT: Denies: Head Aches, Sinus Congestion, Sinus Drainage Cardiovascular: Denies: Chest Pain, Palpitations Respiratory: Reports: Shortness of breath at rest. Denies: Cough, Sputum production Gastrointestinal: Reports: Abdominal Pain - lower abdomen. Denies: Nausea, Vomiting Genitourinary: Denies: Dysuria Musculoskeletal: Denies: Joint Pain, Joint Tenderness Skin: Reports: Wounds. Denies: Rash Neurological: Denies: Numbness, Tingling, Focal weakness Psychiatric: Reports: Anxiety. Denies: Depression, Homicidal Ideations, Suicidal Ideations Hematologic/ Lymphatic: Denies: Easy Bruising, Easy Bleeding Patient Problems: Active and Suspected Problems (Last Reviewed 07/29/19 @ 00:16 by Tyron Yang MD) Severe sepsis (Acute) - Physical Exam General: Alert, Oriented x3, Cooperative HEENT: Atraumatic, PERRLA, EOMI, Normocephalic Neck: Supple, No JVD, Negative Carotid Bruits Lungs: Clear to auscultation, Normal air movement, Tachypneic Cardiovascular: Normal S1, Normal S2, No murmurs, Tachycardic Abdomen: Bowel Sounds Present, Soft, Tender - lower abdominal fold surgical wound Extremities: No edema, Capillary Refill Less than 3 Seconds Skin: No rashes, Ulcer/ Wound - surgical wound of lower abdomen with packings; wounds between gluteal folds; packing between gluteal folds; tenderness at area between gluteal folds., Incision - abdominal fold Musculoskeletal: No Tenderness to Palpation of Joints or Extremities Neurological: Cranial nerves II-XII grossly intact Psych/Mental Status: Anxious Vital Signs Temp Pulse Resp BP Pulse Ox 97.6 F L 78 19 H 98/70 93 07/28/19 14:59 07/28/19 14:59 07/28/19 14:59 07/28/19 14:59 07/28/19 14:59 Oxygen Delivery Method Room Air Weight: 104.961 kg Body Mass Index (BMI) 36.2 Finger Stick Blood Glucose 144 Intake and Output for Last 24 Hours 07/26/19 07/27/19 07/28/19 23:59 23:59 23:59 Intake Total 2740 / 2740 Balance 2740 / 2740 Laboratory Tests Past 24 Hrs 07/28/19 07/28/19 07/28/19 10:55 10:55 10:55 WBC 14.1 H RBC 4.78 Hgb 14.4 Hct 42.8 MCV 89.5 MCH 30.1 MCHC 33.6 RDW Std Deviation 41.8 RDW Coeff of Cindi 12.8 Plt Count 356 MPV 9.2 Immature Gran % (Auto) 0.500 Neut % (Auto) 75.9 H Lymph % (Auto) 10.7 L [place] % (Auto) 9.5 Eos % (Auto) 3.0 Baso % (Auto) 0.4 Absolute Neuts (auto) 10.7 H Absolute Lymphs (auto) 1.52 Nucleated RBC % 0 PT 13.7 INR 1.1 APTT 34.8 Sodium 138 Potassium 3.7 Chloride 106 Carbon Dioxide 25.0 Anion Gap 7 BUN 12 Creatinine 1.07 Estim Creat Clear Calc 90.09 Est GFR (MDRD) Af Amer 101 Est GFR (MDRD) Non-Af 83 BUN/Creatinine Ratio 11.2 Glucose 259 H Lactic Acid Calcium 8.7 Total Bilirubin 0.70 AST 11 L ALT 32 Alkaline Phosphatase 89 Troponin I < 0.015 Total Protein 7.1 Albumin 2.9 L Globulin 4.2 Albumin/Globulin Ratio 0.7 L Urine Color Urine Clarity Urine pH Ur Specific [place] Urine Protein Urine Glucose (UA) Urine Ketones Urine Occult Blood Urine Nitrite Urine Bilirubin Urine Urobilinogen Ur Leukocyte Esterase Urine RBC Urine WBC Ur Squamous Epith Cells Urine Bacteria Urine Mucus 07/28/19 07/28/19 07/28/19 10:55 12:50 16:23 WBC RBC Hgb Hct MCV MCH MCHC RDW Std Deviation RDW Coeff of Cindi Plt Count MPV Immature Gran % (Auto) Neut % (Auto) Lymph % (Auto) [place] % (Auto) Eos % (Auto) Baso % (Auto) Absolute Neuts (auto) Absolute Lymphs (auto) Nucleated RBC % PT INR APTT Sodium Potassium Chloride Carbon Dioxide Anion Gap BUN Creatinine Estim Creat Clear Calc Est GFR (MDRD) Af Amer Est GFR (MDRD) Non-Af BUN/Creatinine Ratio Glucose Lactic Acid 2.5 H 1.0 Calcium Total Bilirubin AST ALT Alkaline Phosphatase Troponin I Total Protein Albumin Globulin Albumin/Globulin Ratio Urine Color Yellow Urine Clarity Sl. Cloudy Urine pH 5.0 Ur Specific [place] 1.025 Urine Protein 15 H Urine Glucose (UA) 250 H Urine Ketones 5 H Urine Occult Blood Negative Urine Nitrite Negative Urine Bilirubin Negative Urine Urobilinogen 4 H Ur Leukocyte Esterase Negative Urine RBC 0 SEEN Urine WBC 0 SEEN Ur Squamous Epith Cells 0 SEEN Urine Bacteria 0 SEEN Urine Mucus 0 SEEN Assessment/Plan All Active Problems (Last Reviewed 07/29/19 @ 00:16 by Tyron Yang MD) Severe sepsis (Acute) The patient is a 34 year old M with a significant history of hidradenitis status post panniculectomy who presented to the emergency department with a temperature of 102.; chills; panic attacks and copious drainage from the gluteal cleft; also with leukocytosis and elevated lactic acid of more than 2 consistent with severe sepsis secondary to probable infected hydradenitis; and Panic attack. Severe sepsis secondary to probable infected hydradenitis Temperature of 102F at home. Tachycardia with highest heart rate of 121. Tachypnea with respiratory rate of 26. Of note patient also have a panic attack which could be contributing to his tachycardia; and his tachypnea. Patient has a leukocytosis of 14.1 and lactic acidosis with lactic acid of 2.5. Note patient is on metformin which could also be contributing to lactic acidosis. Importantly his lactic acidosis has resolved. Continue vancomycin and Zosyn. Urine culture and blood culture are pending Wound Gram stain and culture pending. Patient is scheduled for possible panniculectomy on 07/29/19 Tylenol prn On lactated ringer's Diabetes mellitus On presentation his blood glucose was not within goal We will hold metformin because of recent lactic acidosis and because it is too early in his admission. Glimepiride continued Patient is n.p.o. for surgery in a.m. Will put on correction scale insulin. Accu-Chek every 6 hours. Panic attacks Patient was anxious so nurse had to take a walk with patient. Patient was stuttering because of panic attack On home diazepam 5 mg p.o. 4 times daily as needed; continued. Was given one- time dose of Ativan IV. DVT prophylaxis SCD ordered Code Visit Inpatient E&M: 94326 [facility] L3
[2019-07-28] MEDS: Famotidine 20 MG Tablet PO (22:46)
[2019-07-28] MEDS: metFORMIN HCl 500 MG Tablet PO (22:47)
--- NOTE | 2019-07-28 23:00 | NURSING ---
pt had a panic attack when he was talking to dr. zapata. dr ordered ativan 1mg ivp. pt worked up and anxious when the dr needed to access his abd wound and dressing needed to be changed.
--- NOTE | 2019-07-28 23:43 | SEPSISNOTE ---
Sepsis Note - Physical Exam/Vitals Objective: Chest X-Ray 07/28/19 10:35 IMPRESSION: Mild increased linear markings at the left lung base suggestive of early atelectasis and/or scarring. Electronically Signed: Abdias Goldstein, at 10:51 EDT , Service support , Temp Pulse Resp BP Pulse Ox 97.6 F L 78 19 H 98/70 93 07/28/19 14:59 07/28/19 14:59 07/28/19 14:59 07/28/19 14:59 07/28/19 14:59 07/28/19 07/28/19 07/28/19 16:23 12:50 10:55 WBC RBC Hgb Hct MCV MCH MCHC RDW Std Deviation RDW Coeff of Cindi Plt Count MPV Immature Gran % (Auto) Neut % (Auto) Lymph % (Auto) [place] % (Auto) Eos % (Auto) Baso % (Auto) Absolute Neuts (auto) Absolute Lymphs (auto) Nucleated RBC % PT INR APTT Sodium Potassium Chloride Carbon Dioxide Anion Gap BUN Creatinine Estim Creat Clear Calc Est GFR (MDRD) Af Amer Est GFR (MDRD) Non-Af BUN/Creatinine Ratio Glucose Lactic Acid 1.0 2.5 H Calcium Total Bilirubin AST ALT Alkaline Phosphatase Troponin I Total Protein Albumin Globulin Albumin/Globulin Ratio Urine Color Yellow Urine Clarity Sl. Cloudy Urine pH 5.0 Ur Specific [place] 1.025 Urine Protein 15 H Urine Glucose (UA) 250 H Urine Ketones 5 H Urine Occult Blood Negative Urine Nitrite Negative Urine Bilirubin Negative Urine Urobilinogen 4 H Ur Leukocyte Esterase Negative Urine RBC 0 SEEN Urine WBC 0 SEEN Ur Squamous Epith Cells 0 SEEN Urine Bacteria 0 SEEN Urine Mucus 0 SEEN 07/28/19 07/28/19 07/28/19 10:55 10:55 10:55 WBC 14.1 H RBC 4.78 Hgb 14.4 Hct 42.8 MCV 89.5 MCH 30.1 MCHC 33.6 RDW Std Deviation 41.8 RDW Coeff of Cindi 12.8 Plt Count 356 MPV 9.2 Immature Gran % (Auto) 0.500 Neut % (Auto) 75.9 H Lymph % (Auto) 10.7 L [place] % (Auto) 9.5 Eos % (Auto) 3.0 Baso % (Auto) 0.4 Absolute Neuts (auto) 10.7 H Absolute Lymphs (auto) 1.52 Nucleated RBC % 0 PT 13.7 INR 1.1 APTT 34.8 Sodium 138 Potassium 3.7 Chloride 106 Carbon Dioxide 25.0 Anion Gap 7 BUN 12 Creatinine 1.07 Estim Creat Clear Calc 90.09 Est GFR (MDRD) Af Amer 101 Est GFR (MDRD) Non-Af 83 BUN/Creatinine Ratio 11.2 Glucose 259 H Lactic Acid Calcium 8.7 Total Bilirubin 0.70 AST 11 L ALT 32 Alkaline Phosphatase 89 Troponin I < 0.015 Total Protein 7.1 Albumin 2.9 L Globulin 4.2 Albumin/Globulin Ratio 0.7 L Urine Color Urine Clarity Urine pH Ur Specific [place] Urine Protein Urine Glucose (UA) Urine Ketones Urine Occult Blood Urine Nitrite Urine Bilirubin Urine Urobilinogen Ur Leukocyte Esterase Urine RBC Urine WBC Ur Squamous Epith Cells Urine Bacteria Urine Mucus General: Alert, Oriented x3, Cooperative Lungs: Clear to auscultation, Normal air movement, Tachypneic Cardiovascular: Tachycardic Capillary Refill: <3 seconds Peripheral Pulses: Normal Skin Color: Pale, - - cold hands - Assessment/Plan Assessment and Plan Patient with severe sepsis but not in septic shock. Lactic acid has been trended Blood cultures and urine cultures are pending On broad spectrum antibiotics of Vancomycin; and zosyn; continued Source control planned for 07/29/2019 via surgery of probable infected hydradenitis On Lactated ringers infusion.
[2019-07-28] MEDS: LORazepam 2 MG/ML Syringe 1 MG IV (23:58)
[2019-07-29] VITALS (17 sets, daily range): BP systolic 94–121; BP diastolic 56–74; PULSE 90–110; RESP 16–28; TEMP 36.7–38.1; O2SAT 92–100; BMI 36.2
[2019-07-29] MEDS: HYDROmorphone 1 MG/ML Syringe IV ×5 (00:12→20:12)
[2019-07-29] MEDS: Insulin Lispro 100 UNIT/ML INSULN.PEN SC (00:34)
[2019-07-29 01:01] LABS: Bedside Glucose 199 mg/dL (70-110)
[2019-07-29] MEDS: Dextrose 50%-Water 25 GM/50 ML DISP.SYRIN IV (06:00)
[2019-07-29] MEDS: 0.9% NaCl Peripheral Flush Adult/Peds IV ×4 (06:01→20:12)
[2019-07-29 06:16] LABS: Bedside Glucose 66 mg/dL (70-110)
[2019-07-29 06:41] LABS: Bedside Glucose 116 mg/dL (70-110)
[2019-07-29 07:38] LABS: Hemoglobin 12.1 g/dL (13.0-16.5); Mean Corp Hgb Conc 33.6 g/dL (32-36); Mean Corpuscular Hgb 30.3 pg (27.0-32.0); Mean Platelet Vol. 9.5 fl (6.2-12.0); Platelet Count 317 K/mm3 (150-450); RBC Distribution Width CV 12.8 % (11.6-14.6); RBC Distribution Width SD 42.3 fl (35.1-43.9); White Blood Count 10.9 K/mm3 (4.4-11.0)
[2019-07-29 07:56] LABS: ALB/GLOB Ratio 0.6 RATIO (0.9-2.4); AST(SGOT) 14 U/L (15-37); Alanine Aminotransfer ALT/SGPT 24 U/L (16-61); Albumin, Serum 2.4 g/dL (3.2-5.0); Alkaline Phosphatase 63 U/L (45-117); Anion Gap 6 (5-15); BUN 11 mg/dL (7-18); BUN/Creat Ratio 13.5 RATIO (10-20); Calcium,Total 8.1 mg/dL (8.5-10.1); Chloride 111 mmol/L (98-107); Creatinine, Serum 0.81 mg/dL (0.70-1.30); EST Glomerular Filtration Rate 114 mL/min (>60); Est Glom Filt Rate - Afr Amer 138 mL/min (>60); Estimated Creatinine Clearance 119.01 ml/min; Globulin 3.7 g/dL (2.2-4.2); Glucose 108 mg/dL (74-106); Potassium 3.7 mmol/L (3.5-5.1); Prealbumin 7.6 mg/dL (20.0-40.0); Protein, Total 6.1 g/dL (6.4-8.2); Sodium Level 144 mmol/L (136-145)
[2019-07-29] MEDS: diazePAM 5 MG Tablet PO ×3 (08:12→22:20)
[2019-07-29] MEDS: DAKIN'S SOL HALF STRENGTH (=0.25%) 1 APPLIC TOPICAL (08:20)
--- NOTE | 2019-07-29 08:57 | NURSING ---
Pt very anxious, says savannah attack like. Valium given with sip of water and Dilaudid given for pre-medicate for Drsg change that Kalyani Cano Wound nurse is going to be changing shortly.
[2019-07-29 09:02] LABS: Hemoglobin A1c 7.8 % (4.2-6.3)
--- NOTE | 2019-07-29 09:35 | PN_ITS ---
Patient Problems: Active and Suspected Problems (Last Reviewed 07/29/19 @ 00:16 by Tyron Yang MD) Severe sepsis (Acute) Subjective: Chief complaint: Follow-up after consultation for severe sepsis. Patient seen and examined. No acute events overnight. He is still complaining of significant lower abdominal pain because of his recent surgery. He is very anxious about moving because of pain. He still having spikes of fever, tachycardic, blood pressure is stable, pulse ox is maintained on room air. - Physical Exam General: Alert, Oriented x3, Cooperative, No apparent distress HEENT: Atraumatic, PERRLA, EOMI, Normocephalic Oral: Moist Mucosa, No Gingival or Mucosal Lesions/ Ulcerations Neck: Supple, No JVD, Negative Carotid Bruits, Trachea Midline, Thyroid Normal Size and Texture Lungs: Clear to auscultation, Normal air movement, No rhonchi, No wheeze, No rales Cardiovascular: Regular rate, Regular Rhythm, Normal S1, Normal S2, No murmurs, Tachycardic Abdomen: Bowel Sounds Present, Soft, Non Tender, Non-Distended, No Hepato- splenomegaly, Obese Extremities: No clubbing, No cyanosis, No edema Skin: No rashes, Ulcer/ Wound Lymphatic: No Cervical, Supraclavicular, or Inguinal Adenopathy Neurological: Cranial nerves II-XII grossly intact, Motor Exam 5/5 strength throughout Psych/Mental Status: Normal Affect, Appropriate, Alert and oriented to time, place, person, mood and affect Vital Signs Temp Pulse Resp BP Pulse Ox 99.4 F H 101 H 20 H 121/69 H 93 07/29/19 09:11 07/29/19 09:11 07/29/19 09:11 07/29/19 09:11 07/29/19 09:11 Oxygen Flow Rate (L/min) 2 Oxygen Delivery Method Room Air Weight: 231 lb 6.4 oz Body Mass Index (BMI) 36.2 Finger Stick Blood Glucose 144 Intake and Output for Last 24 Hours 07/27/19 07/28/19 07/29/19 23:59 23:59 23:59 Intake Total 3211.67 / 3411.67 790 / 790 Balance 3211.67 / 3411.67 790 / 790 Laboratory Tests Past 24 Hrs 07/28/19 07/28/19 07/28/19 10:55 10:55 10:55 WBC 14.1 H RBC 4.78 Hgb 14.4 Hct 42.8 MCV 89.5 MCH 30.1 MCHC 33.6 RDW Std Deviation 41.8 RDW Coeff of Cindi 12.8 Plt Count 356 MPV 9.2 Immature Gran % (Auto) 0.500 Neut % (Auto) 75.9 H Lymph % (Auto) 10.7 L [place] % (Auto) 9.5 Eos % (Auto) 3.0 Baso % (Auto) 0.4 Absolute Neuts (auto) 10.7 H Absolute Lymphs (auto) 1.52 Nucleated RBC % 0 PT 13.7 INR 1.1 APTT 34.8 Sodium 138 Potassium 3.7 Chloride 106 Carbon Dioxide 25.0 Anion Gap 7 BUN 12 Creatinine 1.07 Estim Creat Clear Calc 90.09 Est GFR (MDRD) Af Amer 101 Est GFR (MDRD) Non-Af 83 BUN/Creatinine Ratio 11.2 Glucose 259 H Hemoglobin A1c Lactic Acid Calcium 8.7 Total Bilirubin 0.70 AST 11 L ALT 32 Alkaline Phosphatase 89 Troponin I < 0.015 Total Protein 7.1 Albumin 2.9 L Globulin 4.2 Albumin/Globulin Ratio 0.7 L Prealbumin Urine Color Urine Clarity Urine pH Ur Specific [place] Urine Protein Urine Glucose (UA) Urine Ketones Urine Occult Blood Urine Nitrite Urine Bilirubin Urine Urobilinogen Ur Leukocyte Esterase Urine RBC Urine WBC Ur Squamous Epith Cells Urine Bacteria Urine Mucus 07/28/19 07/28/19 07/28/19 10:55 12:50 16:23 WBC RBC Hgb Hct MCV MCH MCHC RDW Std Deviation RDW Coeff of Cindi Plt Count MPV Immature Gran % (Auto) Neut % (Auto) Lymph % (Auto) [place] % (Auto) Eos % (Auto) Baso % (Auto) Absolute Neuts (auto) Absolute Lymphs (auto) Nucleated RBC % PT INR APTT Sodium Potassium Chloride Carbon Dioxide Anion Gap BUN Creatinine Estim Creat Clear Calc Est GFR (MDRD) Af Amer Est GFR (MDRD) Non-Af BUN/Creatinine Ratio Glucose Hemoglobin A1c Lactic Acid 2.5 H 1.0 Calcium Total Bilirubin AST ALT Alkaline Phosphatase Troponin I Total Protein Albumin Globulin Albumin/Globulin Ratio Prealbumin Urine Color Yellow Urine Clarity Sl. Cloudy Urine pH 5.0 Ur Specific [place] 1.025 Urine Protein 15 H Urine Glucose (UA) 250 H Urine Ketones 5 H Urine Occult Blood Negative Urine Nitrite Negative Urine Bilirubin Negative Urine Urobilinogen 4 H Ur Leukocyte Esterase Negative Urine RBC 0 SEEN Urine WBC 0 SEEN Ur Squamous Epith Cells 0 SEEN Urine Bacteria 0 SEEN Urine Mucus 0 SEEN 07/29/19 07/29/19 07/29/19 06:49 06:49 06:49 WBC 10.9 RBC 4.00 L Hgb 12.1 L Hct 36.0 L MCV 90.0 MCH 30.3 MCHC 33.6 RDW Std Deviation 42.3 RDW Coeff of Cindi 12.8 Plt Count 317 MPV 9.5 Immature Gran % (Auto) Neut % (Auto) Lymph % (Auto) [place] % (Auto) Eos % (Auto) Baso % (Auto) Absolute Neuts (auto) Absolute Lymphs (auto) Nucleated RBC % PT INR APTT Sodium 144 Potassium 3.7 Chloride 111 H Carbon Dioxide 27.0 Anion Gap 6 BUN 11 Creatinine 0.81 Estim Creat Clear Calc 119.01 Est GFR (MDRD) Af Amer 138 Est GFR (MDRD) Non-Af 114 BUN/Creatinine Ratio 13.5 Glucose 108 H Hemoglobin A1c 7.8 H Lactic Acid Calcium 8.1 L Total Bilirubin 0.40 AST 14 L ALT 24 Alkaline Phosphatase 63 Troponin I Total Protein 6.1 L Albumin 2.4 L Globulin 3.7 Albumin/Globulin Ratio 0.6 L Prealbumin 7.6 L Urine Color Urine Clarity Urine pH Ur Specific [place] Urine Protein Urine Glucose (UA) Urine Ketones Urine Occult Blood Urine Nitrite Urine Bilirubin Urine Urobilinogen Ur Leukocyte Esterase Urine RBC Urine WBC Ur Squamous Epith Cells Urine Bacteria Urine Mucus POC Glucose 07/29/19 07/29/19 07/29/19 06:34 05:48 00:24 POC Glucose 116 H 66 L 199 H Clinical Impression(s) from Imaging Studies Chest X-Ray 07/28/19 10:35 IMPRESSION: Mild increased linear markings at the left lung base suggestive of early atelectasis and/or scarring. Electronically Signed: Abdias Goldstein, at 10:51 EDT , Service support , Medical Necessity - Tobacco Use Smoking Status: Former smoker Assessment/Plan All Active Problems (Last Reviewed 07/29/19 @ 00:16 by Tyron Yang MD) Severe sepsis (Acute) This is a 34 years old male patient admitted for acute purulent hidradenitis of the left gluteal/perianal region with severe sepsis and also had a recent history of anterior abdominal wall hidradenitis with necrotizing soft tissue infection status post anterior abdominal wall excisional debridement and abdominal panniculectomy. #1 acute purulent hidradenitis of the left gluteal/perianal region/severe sepsis: He is on IV vancomycin and Zosyn. He still having spikes of low-grade fever, white blood cell count is trending down, still tachycardic. Lactic acid improved. Blood and urine cultures are pending as well as wound culture. Plan for surgery today. #2 recent history of anterior abdominal wall hydradenitis with necrotizing soft tissue infection: Status post anterior abdominal wall debridement and abdominal panniculectomy. This was done on July 19, 2019. Patient was on Augmentin as outpatient. Wound culture at that time revealed Streptococcus anginosus and actinomyces meyeri. #3 type 2 diabetes mellitus: Blood sugar has been under fair control. He is on glimepiride and sliding scale. Metformin held. #4 panic attacks: Patient mentioned that he does have those attacks only because of the abdominal pain due to the recent surgery and wound VAC. He is on Valium as needed. #5 DVT prophylaxis: Low risk patient, no prophylaxis indicated. This note was generated with [employer] software. It may contain incorrect words, spelling, and punctuation that were not noted in checking the note before signing. Code Visit Inpatient E&M: 24194 Subs Hosp L2
--- NOTE | 2019-07-29 10:02 | NURSING ---
wound photo: abdomen
[2019-07-29 11:00] LABS: Bedside Glucose 89 mg/dL (70-110)
--- NOTE | 2019-07-29 11:03 | NURSING ---
Addendum entered by Klaudia Guy 07/29/19 11:06: Off the floor at this time, brought to OR via bed. Original Note: Report given to Irene RAINEY at this time. She is aware of blood sugar being 89.
[2019-07-29] MEDS: 0.9% Normal Saline 1,000 ML 100 ML IV ×2 (11:14→20:12)
--- NOTE | 2019-07-29 11:50 | HID_PTH ---
PATIENT: BRITTANY YOUNG LOC: MS3 U#:[id number] AGE/SX: 34/M ROOM: [facility]322 RE07/28/[address]: Dr. Britni Longoria DO : 1985 BED: 1 DIS: 08/03/2019 SPEC #: [id number] RECD: 07/29/19 14:17 STATUS: ANYI CORAL #: [id number] AUGUST: 07/29/19 11:[address]: Rohit Luis DEPT: SURGICAL PATHOLOGY RECD BY: Brennen Bowers ENTERED: 08/01/19 12:12 SP TYPE: Hidradenit OTHR DR: MD Dr. Britni Loera Dr., DO Daniel Manz, MD Dr. Faranak Zarrabi, MD Dr. Nicholas F Kotsonis, MD Tissues: Buttock, NOS Procedures: Special Stain Group I Surgery Specimen Level III AFB Stain (control) GMS Stain (control) HEADER OPERATION: Excision, infected hidradenitis abscess, gluteal and perianal PRE-OP DIAGNOSIS: Abdominal wall skin crease hidradenitis with fat necrosis; abdominal panniculus; abdominal wall skin crease intertrigo; left axillary hidradenitis; left gluteal/perianal hidradenitis; bilateral inguinal/medial thigh hidradenitis TISSUE SUBMITTED: Left gluteal/perianal hidradenitis, soft tissue MICROSCOPIC DIAGNOSIS Left gluteal/perianal hidradenitis soft tissue: Pieces of skin with underlying soft tissue with acute and chronic inflammation and abscess formation. Special stains for acid fast bacilli and fungi are negative for organisms; matched controls are appropriate. SANDRO:krystina 08/02/19 MICROSCOPIC DESCRIPTION Slides are reviewed. GROSS DESCRIPTION Received is one container labeled with the patient's name and not further designated. The specimen consists of multiple pieces of skin with underlying tissue that in aggregate measure 14 x 11 x 4 cm. Sections do not reveal any mass lesion. Subcontract Administrator sections are submitted in four cassettes. / Gina 08/01/19 TC: 2 CPT: 67870, 99553 x2
[2019-07-29] MEDS: Lactated Ringers 1,000 ML 100 ML IV ×2 (12:45→14:02)
--- NOTE | 2019-07-29 13:27 | PCM.OPRPT ---
Report of Operation Date of Procedure: 07/29/19 Pre-Operative Diagnosis: 1. Hidradenitis abscess left gluteal/perianal area. 2. Hidradenitis. 3. Diabetes mellitus. 4. Sepsis. 5. Smoker. 6. Recent surgery for surgical preparation abdominal wall with excisional debridement skin and subcutaneous tissue and fascia necrotizing soft tissue hidradenitis infection (492 cm2) and abdominal panniculectomy. Post-Operative Diagnosis: 1. Hidradenitis abscess bilateral superior gluteal/perianal area. 2. Hidradenitis. 3. Diabetes mellitus. 4. Sepsis. 5. Smoker. 6. Recent surgery for surgical preparation abdominal wall with excisional debridement skin and subcutaneous tissue and fascia necrotizing soft tissue hidradenitis infection (492 cm2) and abdominal panniculectomy. Surgery/Procedure Performed:: Surgical preparation bilateral superior gluteal/perianal area with excision necrotizing hidradenitis abscess (143 cm2). Description of Surgical Findings:: Patient had surgery on 07/19/19 where he underwent surgical preparation abdominal wall with excisional debridement skin and subcutaneous tissue and fascia necrotizing soft tissue hidradenitis infection (492 cm2) and abdominal panniculectomy. He was discharged home on Doxycycline and on the VAC and had trouble with the pain. The VAC was removed and daily dressing changes with Dakin's was started. His operative culture showed Streptococcus anginosus and Actinomyces meyeri. The Doxycycline was stopped and he was started on Augmentin. He reported a temp of 102 earlier today and it was recommended to the patient to go to the ED for evaluation. He had noticed increased drainage from his left gluteal/perianal area. He was given IV hydration. ED labs showed a WBC of 14.1. The Lactate was 2.5. CXR showed some atelectasis. The abdominal wall wound appeared stable at this time. When he was turned over there was a flare up of hidradenitis in the left gluteal/perianal area with increasing purulent drainage and pain. He was started on IV Vancomycin and Zosyn and was admitted for IV antibiotics and aggressive wound in preparation for further operative intervention with incision and drainage and excisional debridement of her left gluteal/perianal hidradenitis. Patient was informed of the risks and complications of the procedure including alternatives to surgery. These were discussed with the patient personally. Patient voices understanding and wishes to proceed. Size of wound bilateral superior gluteal/perianal areas - 13 x 11 x 2.5 cm. I used Tushar absorbable hemostat. Reference Number - [id number]. Lot Number - [id number]. Expiration - February 04, 2024. high speed operator: Amandeep Hoang. Type of Anesthesia:: General Specimen's removed: Hidradenitis abscess bilateral superior gluteal/perianal areas to Pathology and Microbiology. Drains: None. Estimated Blood Loss (mL): 150 ml. Description of Procedure: Patient was taken to OR in supine position and was placed under general anesthesia. A paul catheter was inserted. He was then placed in the prone position. The gluteal skin was placed on stretch with tape. The bilateral gluteal and perianal areas were prepped and draped in the usual fashion. There was a wound opening with purulent drainage in the left gluteal/perianal area. However, there was extensive induration and redness superiorly and extending to the right side. SCD's were placed for DVT prophylaxis. Perioperative antibiotics were given intravenously. I probed the wound opening with a hemostat and it tracked superiorly. I proceeded with incision of the hidradenitis abscess and followed the extension superiorly with excision of the overlying skin and associated hidradenitis. A lot of pus was encountered, more on the left side. A lot of fat necrosis was present. Indurated scar tissue was present extending down to the gluteus muscle and extending superiorly and over to the right side in a horseshoe type fashion. The fat necrosis and the indurated scar tissue were excised and debrided. The wound was about 3 cm from the anal opening. Some of the tissue was sent to Microbiology for culture. A positive culture will necessitate antibiotic therapy. The rest of the tissue was sent to Pathology for analysis to rule out carcinoma. Hemostasis was obtained with electrocautery. The wound was irrigated with saline. The size of the bilateral superior gluteal/perianal defect was 13 x 11 x 2.5 cm or 143 cm2. The wound was dressed with Mepitel nonadherent dressing followed by Kerlix gauze and Betadine followed by dry Kerlix gauze and ABD pads compression dressing. Patient tolerated the procedure well and was sent to PACU in satisfactory condition. Patient will be sent upstairs for continued postop care. Will begin Dakin's dressing changes tomorrow. If a diverting colostomy is needed in the future for stool contamination, the anterior abdominal wound will need to be closed. Patient and his family will be instructed on keeping the gluteal/perianal wound closed with a portable shower head and taking a shower after each bowel movement. Also with the complexity of the wound care and the need for IV antibiotics through a PICC line, he will be evaluated for ECF placement. After discharge from the ECF, he will followup at the [facility]. Surgical closure of the abdominal wall wound will be discussed at that time. Grafts/Implants Used: None. - Complications None. - Admit VTE Documentation VTE Present on Admission: No VTE Mechan Device Prophylaxis: SCD's VTE Pharm Prophylaxis ordered?: Yes Code Visit Surgery Charges CPT - 15349 ICD-10 - L73.2, L02.31, M79.89, A41.9, E11.9, F17.200 [id number] L73.2, L02.31, M79.89, A41.9, E11.9, F17.200
[2019-07-29 14:26] LABS: Bedside Glucose 154 mg/dL (70-110)
--- NOTE | 2019-07-29 15:04 | CHAPLAIN ---
patient and bed were out of room; left a calling card
--- NOTE | 2019-07-29 15:09 | CASEMGMT ---
Chart review: Patient was admitted 07/19-07/20/19 for I&D of abdominal hidradenitis and discharged home with [facility] and wound vac. Patient lives with who is nurse. Patient returned 07/28/19 for additional surgery for hidradenitis of gluteal perianal area. Per surgeon patient will be here through the weekend and may benefit from going to [facility] at discharge. RN CM will continue to follow this patient and plan for a safe discharge.
[2019-07-29 18:26] LABS: Bedside Glucose 245 mg/dL (70-110)
--- NOTE | 2019-07-29 18:39 | NURSING ---
up to [facility], requesting as he feels urge to have bm. pt refused sliding scale insulin. wants his oral diabetic pills.
[2019-07-29] MEDS: Escitalopram Oxalate 10 MG Tablet PO (22:17)
[2019-07-29] MEDS: Famotidine 20 MG Tablet PO (22:17)
[2019-07-30 00:08] VITALS: BP 100/63; PULSE 75; RESP 16; TEMP 36.5; O2SAT 96
[2019-07-30 03:25] VITALS: BP 112/67; PULSE 90; RESP 16; TEMP 37.6; O2SAT 99
[2019-07-30] MEDS: 0.9% NaCl Peripheral Flush Adult/Peds IV ×5 (03:29→21:14)
[2019-07-30] MEDS: HYDROmorphone 1 MG/ML Syringe IV ×3 (03:29→16:12)
[2019-07-30 04:37] LABS: Hematocrit 36.7 % (40-54); Hemoglobin 12.3 g/dL (13.0-16.5); Mean Corp Hgb Conc 33.5 g/dL (32-36); Mean Corpuscular Hgb 30.2 pg (27.0-32.0); Mean Corpuscular Volume 90.2 fL (80-94); Mean Platelet Vol. 9.3 fl (6.2-12.0); Platelet Count 359 K/mm3 (150-450); RBC Distribution Width CV 12.4 % (11.6-14.6); RBC Distribution Width SD 40.9 fl (35.1-43.9); Red Blood Count 4.07 M/mm3 (4.6-6.2); White Blood Count 10.9 K/mm3 (4.4-11.0)
[2019-07-30 04:50] LABS: Scan Indicated on CBC? Y/N NO
[2019-07-30 04:53] LABS: Erythrocyte Sedimentation Rate 36 mm/hr (0-15)
[2019-07-30 04:58] LABS: Vancomycin, Trough Level 23.1 ug/mL (5.0-15.0)
[2019-07-30] MEDS: Enoxaparin 40 MG/0.4 ML Syringe SC (05:01)
[2019-07-30 05:11] LABS: ALB/GLOB Ratio 0.7 RATIO (0.9-2.4); AST(SGOT) 19 U/L (15-37); Alanine Aminotransfer ALT/SGPT 23 U/L (16-61); Albumin, Serum 2.3 g/dL (3.2-5.0); Alkaline Phosphatase 65 U/L (45-117); Anion Gap 11 (5-15); BUN 16 mg/dL (7-18); BUN/Creat Ratio 20.1 RATIO (10-20); Chloride 110 mmol/L (98-107); EST Glomerular Filtration Rate 117 mL/min (>60); Est Glom Filt Rate - Afr Amer 142 mL/min (>60); Estimated Creatinine Clearance 120.49 ml/min; Globulin 3.2 g/dL (2.2-4.2); Glucose 263 mg/dL (74-106); Potassium 4.3 mmol/L (3.5-5.1); Protein, Total 5.5 g/dL (6.4-8.2); Sodium Level 143 mmol/L (136-145)
--- NOTE | 2019-07-30 05:27 | PHA.PHARE_ITS ---
Consult Pharmacy has been consulted to manage selected antiobiotic: Vancomycin Type of Consult: Follow-up Suspected Infection: Sepsis Prior Doses of Antibiotics Received/Current Regimen: Medications Vancomycin HCl 2,000 mg/ (Sodium Chloride) 540 mls @ 250 mls/hr IV Q12H ARIANNE Last Admin: 07/30/19 03:24 Dose: 250 mls/hr Documented by: Labs: Sodium 143 mmol/L (136-145) 07/30/19 03:50 Potassium 4.3 mmol/L (3.5-5.1) 07/30/19 03:50 Chloride 110 mmol/L (98-107) H 07/30/19 03:50 Carbon Dioxide 22.0 mmol/L (21.0-32.0) 07/30/19 03:50 Anion Gap 11 (5-15) 07/30/19 03:50 BUN 16 mg/dL (7-18) 07/30/19 03:50 Creatinine 0.80 mg/dL (0.70-1.30) 07/30/19 03:50 Est GFR (MDRD) Af Amer 142 mL/min (>60) 07/30/19 03:50 Est GFR (MDRD) Non-Af 117 mL/min (>60) 07/30/19 03:50 BUN/Creatinine Ratio 20.1 RATIO (10-20) H 07/30/19 03:50 Glucose 263 mg/dL (74-106) H 07/30/19 03:50 Vancomycin Trough 23.1 ug/mL (5.0-15.0) H 07/30/19 03:50 Microbiology: Microbiology 07/28/19 16:00 Wound - Buttock Gram Stain - Final 07/28/19 16:00 Wound - Buttock Wound Culture - Preliminary GNR lactose shake 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 Vancomycin trough level will be redrawn with next dose, due to incorrect timing of level drawn. (medication was hung 25 minutes before level drawn) Follow-Up Labs: Trough Vancomycin - 30 minutes before dose due Labs to be done on [date and time ordered]: 07/30/19 3174
[2019-07-30] MEDS: 0.9% Normal Saline 1,000 ML 100 ML IV (06:22)
[2019-07-30 06:35] LABS: Bedside Glucose 216 mg/dL (70-110)
[2019-07-30 06:37] VITALS: BP 102/63; PULSE 81; RESP 16; TEMP 36.3; O2SAT 94
--- NOTE | 2019-07-30 08:39 | PN_ITS ---
Patient Problems: Active and Suspected Problems (Last Reviewed 07/29/19 @ 00:16 by Tyron Yang MD) Severe sepsis (Acute) Subjective: Chief complaint: Follow-up after consultation for severe sepsis and postoperative medical management. Patient seen and examined. No acute events overnight. Abdominal pain is improving, patient is able to ambulate. Denies fever or chills. He underwent for surgery yesterday for the left gluteal/perianal hidradenitis. He has been afebrile, other vital signs are stable. - Physical Exam General: Alert, Oriented x3, Cooperative, No apparent distress HEENT: Atraumatic, PERRLA, EOMI, Normocephalic Oral: Moist Mucosa, No Gingival or Mucosal Lesions/ Ulcerations Neck: Supple, No JVD, Negative Carotid Bruits, Trachea Midline, Thyroid Normal Size and Texture Lungs: Clear to auscultation, Normal air movement, No wheeze, No rales Cardiovascular: Regular rate, Regular Rhythm, Normal S1, Normal S2, No murmurs, PMI Normal Abdomen: Bowel Sounds Present, Soft, Non-Distended, No Hepato-splenomegaly, Tender Extremities: No clubbing, No cyanosis, No edema Skin: No rashes, Ulcer/ Wound, Incision Lymphatic: No Cervical, Supraclavicular, or Inguinal Adenopathy Neurological: Cranial nerves II-XII grossly intact, Neuro grossly intact Psych/Mental Status: Normal Affect, Appropriate, Alert and oriented to time, place, person, mood and affect Vital Signs Temp Pulse Resp BP Pulse Ox 97.3 F L 81 16 102/63 94 07/30/19 06:37 07/30/19 06:37 07/30/19 06:37 07/30/19 06:37 07/30/19 06:37 Oxygen Flow Rate (L/min) 2 Oxygen Delivery Method Nasal Cannula Weight: 231 lb 6.39 oz Body Mass Index (BMI) 36.2 Finger Stick Blood Glucose 154 Intake and Output for Last 24 Hours 07/28/19 07/29/19 07/30/19 23:59 23:59 23:59 Intake Total 3211.67 / 3411.67 4523.34 / 4523.34 2283.33 / 2283.33 Output Total 2200 / 2200 3200 / 3200 Balance 3211.67 / 3411.67 2323.34 / 2323.34 -916.67 / -916.67 Microbiology Past 72 Hours 07/28/19 12:50 Urine Culture - Final Urine, Clean Catch Culture exhibits no growth. 07/28/19 16:00 Gram Stain - Final Wound - Buttock Wound Culture - Preliminary GNR lactose institutional custodian Gram positive organism Laboratory Tests Past 24 Hrs 07/29/19 07/30/19 07/30/19 06:49 03:50 03:50 WBC 10.9 RBC 4.07 L Hgb 12.3 L Hct 36.7 L MCV 90.2 MCH 30.2 MCHC 33.5 RDW Std Deviation 40.9 RDW Coeff of Cindi 12.4 Plt Count 359 MPV 9.3 ESR 36 H Sodium Potassium Chloride Carbon Dioxide Anion Gap BUN Creatinine Estim Creat Clear Calc Est GFR (MDRD) Af Amer Est GFR (MDRD) Non-Af BUN/Creatinine Ratio Glucose Hemoglobin A1c 7.8 H Calcium Total Bilirubin AST ALT Alkaline Phosphatase C-React Prot Ext Range Total Protein Albumin Globulin Albumin/Globulin Ratio Vancomycin Trough 23.1 H 07/30/19 03:50 WBC RBC Hgb Hct MCV MCH MCHC RDW Std Deviation RDW Coeff of Cindi Plt Count MPV ESR Sodium 143 Potassium 4.3 Chloride 110 H Carbon Dioxide 22.0 Anion Gap 11 BUN 16 Creatinine 0.80 Estim Creat Clear Calc 120.49 Est GFR (MDRD) Af Amer 142 Est GFR (MDRD) Non-Af 117 BUN/Creatinine Ratio 20.1 H Glucose 263 H Hemoglobin A1c Calcium 8.0 L Total Bilirubin 0.30 AST 19 ALT 23 Alkaline Phosphatase 65 C-React Prot Ext Range 134.00 H Total Protein 5.5 L Albumin 2.3 L Globulin 3.2 Albumin/Globulin Ratio 0.7 L Vancomycin Trough POC Glucose 07/30/19 07/29/19 07/29/19 06:21 18:08 14:23 POC Glucose 216 H 245 H 154 H 07/29/19 10:51 POC Glucose 89 Medical Necessity - Tobacco Use Smoking Status: Former smoker Tobacco Use: Cigarettes Assessment/Plan All Active Problems (Last Reviewed 07/29/19 @ 00:16 by Tyron Yang MD) Severe sepsis (Acute) This is a 34 years old male patient admitted for acute purulent hidradenitis of the left gluteal/perianal region with severe sepsis and also had a recent history of anterior abdominal wall hidradenitis with necrotizing soft tissue infection status post anterior abdominal wall excisional debridement and abdominal panniculectomy. #1 acute purulent hidradenitis/abscess of the left gluteal/perianal region/severe sepsis: Status post incision and drainage, postoperative day 1. He is on IV vancomycin and Zosyn. His vital signs are stable, afebrile this morning. No leukocytosis. Wound culture revealed gram-negative rods and gram- positive organism, final is pending. Blood cultures pending. Plastic surgery is on the case. Plan to continue same treatment. #2 recent history of anterior abdominal wall hydradenitis with necrotizing soft tissue infection: Status post anterior abdominal wall debridement and abdominal panniculectomy. This was done on July 19, 2019. Patient was on Augmentin as outpatient, now on IV vancomycin and Zosyn as above. Wound culture at that time revealed Streptococcus anginosus and actinomyces meyeri. Plan as above. #3 type 2 diabetes mellitus: Blood sugar has been under fair control. Patient refused sliding scale. Plan to continue glimepiride, resume metformin. #4 panic attacks: Patient mentioned that he does have those attacks only because of the abdominal pain due to the recent surgery and wound VAC. He is on Valium as needed. #5 DVT prophylaxis: Subcu Lovenox. This note was generated with [employer] dictation software. It may contain incorrect words, spelling, and punctuation that were not noted in checking the note before signing. Code Visit Inpatient E&M: 59617 Subs Hosp L2
[2019-07-30] MEDS: Glimepiride 4 MG Tablet PO (08:59)
[2019-07-30 09:00] VITALS: PULSE 66
[2019-07-30] MEDS: Docusate Sodium 100 MG Capsule PO (09:00)
[2019-07-30] MEDS: DAKIN'S SOL HALF STRENGTH (=0.25%) 1 APPLIC TOPICAL ×2 (09:00→16:30)
[2019-07-30] MEDS: Pantoprazole Sodium 20 MG Tablet PO (09:01)
[2019-07-30] MEDS: Famotidine 20 MG Tablet PO ×2 (09:01→21:24)
[2019-07-30] MEDS: HYDROmorphone 2 MG TABLET PO ×2 (09:06→14:33)
--- NOTE | 2019-07-30 11:08 | PN.SURG_ITS ---
Subjective: Postop #1 Patient complains of wound pain. Dakin's dressings applied to both the gluteal and abdominal wounds. - Physical Exam General: Alert, Oriented x3 HEENT: PERRLA, EOMI Oral: Moist Mucosa Neck: Supple Abdomen: Soft, Non-Distended Skin: Ulcer/ Wound - Ulcer/ Wound - abdominal wall wound is stable with good granulation tissue. gluteal/perianal wound is stable. No active bleeding noted. No further evidence of infection at this time. Dakin's dressing change was painful but tolerated reasonably well. Neurological: Cranial nerves II-XII grossly intact Psych/Mental Status: Normal Affect, Appropriate Vital Signs Temp Pulse Resp BP Pulse Ox 97.3 F L 66 16 102/63 94 07/30/19 06:37 07/30/19 09:00 07/30/19 06:37 07/30/19 06:37 07/30/19 06:37 Oxygen Flow Rate (L/min) 2 Oxygen Delivery Method Nasal Cannula Weight: 231 lb 6.39 oz Body Mass Index (BMI) 36.2 Finger Stick Blood Glucose 154 Intake and Output for Last 24 Hours 07/28/19 07/29/19 07/30/19 23:59 23:59 23:59 Intake Total 3211.67 / 3411.67 4523.34 / 4523.34 2283.33 / 2283.33 Output Total 2200 / 2200 3200 / 3200 Balance 3211.67 / 3411.67 2323.34 / 2323.34 -916.67 / -916.67 Microbiology Past 72 Hours 07/28/19 16:00 Gram Stain - Final Wound - Buttock Wound Culture - Final Escherichia coli Gram positive organism 07/28/19 12:50 Urine Culture - Final Urine, Clean Catch Culture exhibits no growth. Laboratory Tests Past 24 Hrs 07/30/19 07/30/19 07/30/19 03:50 03:50 03:50 WBC 10.9 RBC 4.07 L Hgb 12.3 L Hct 36.7 L MCV 90.2 MCH 30.2 MCHC 33.5 RDW Std Deviation 40.9 RDW Coeff of Cindi 12.4 Plt Count 359 MPV 9.3 ESR 36 H Sodium 143 Potassium 4.3 Chloride 110 H Carbon Dioxide 22.0 Anion Gap 11 BUN 16 Creatinine 0.80 Estim Creat Clear Calc 120.49 Est GFR (MDRD) Af Amer 142 Est GFR (MDRD) Non-Af 117 BUN/Creatinine Ratio 20.1 H Glucose 263 H Calcium 8.0 L Total Bilirubin 0.30 AST 19 ALT 23 Alkaline Phosphatase 65 C-React Prot Ext Range 134.00 H Total Protein 5.5 L Albumin 2.3 L Globulin 3.2 Albumin/Globulin Ratio 0.7 L Vancomycin Trough 23.1 H POC Glucose 07/30/19 07/29/19 07/29/19 06:21 18:08 14:23 POC Glucose 216 H 245 H 154 H Medical Necessity - Tobacco Use Smoking Status: Former smoker Tobacco Use: Cigarettes Assessment/Plan All Active Problems (Last Reviewed 07/29/19 @ 00:16 by Tyron Yang MD) Severe sepsis (Acute) 1. Hidradenitis abscess bilateral superior gluteal/perianal area. 2. Hidradenitis. 3. Diabetes mellitus. 4. Sepsis. 5. Smoker. 6. Recent surgery for surgical preparation abdominal wall with excisional debridement skin and subcutaneous tissue and fascia necrotizing soft tissue hidradenitis infection (492 cm2) and abdominal panniculectomy. 7. s/p surgical preparation bilateral superior gluteal/perianal area with excision hidradenitis abscess (143 cm2). Continue Dakin's dressing changes daily. Still needs IV analgesia. Continue IV Vancomycin and Zosyn. Will place a PICC line for termite control technician IV antibiotics. So far E. coli is present. May discharge on Zosyn. Prealbumin is 7.6. Encourage nutritional supplementation with protein to help the healing process. HgbA1c is 7.8. Before any elective wound closure is done, the HgbA1c needs to be 8 or less. His wounds are complex and painful and he needs IV antibiotics. He will be evaluated for an ECF. Discussed with the patient the importance of keeping his gluteal/perianal wound clean after bowel movements by getting in the shower to cleanse the wound. If stool contamination is an issue, he would need a temporary diverting colostomy. At that time, the abdominal wall wound would need to be closed with a complex secondary wound closure prior to proceeding with a colostomy. Encouraged patient to stop smoking as it may have deleterious effects on wound healing.
[2019-07-30 11:21] LABS: Bedside Glucose 241 mg/dL (70-110)
[2019-07-30] MEDS: metFORMIN HCl 850 MG Tablet PO (13:07)
[2019-07-30 14:31] VITALS: BP 109/57; PULSE 66; RESP 20; TEMP 36.7; O2SAT 96
--- NOTE | 2019-07-30 15:03 | NURSING ---
spoke with upset operator- aware of need for PICC line to be placed.
[2019-07-30 15:56] LABS: Vancomycin, Trough Level 10.5 ug/mL (5.0-15.0)
[2019-07-30] MEDS: 0.9% NaCl IVPB Med Flush (250 mL) 15 ML IV (16:13)
[2019-07-30] MEDS: diazePAM 5 MG Tablet PO (17:03)
[2019-07-30 17:16] LABS: Bedside Glucose 213 mg/dL (70-110)
[2019-07-30 21:05] VITALS: BP 100/53; PULSE 74; RESP 18; TEMP 36.8; O2SAT 99
[2019-07-30] MEDS: metFORMIN HCl 500 MG Tablet PO (21:24)
[2019-07-30] MEDS: Escitalopram Oxalate 10 MG Tablet PO (21:24)
[2019-07-31 00:05] LABS: Bedside Glucose 171 mg/dL (70-110)
[2019-07-31] MEDS: HYDROmorphone 2 MG TABLET PO ×4 (04:11→18:50)
[2019-07-31 04:13] LABS: Vancomycin, Trough Level 13.1 ug/mL (5.0-15.0)
[2019-07-31 04:22] VITALS: BP 114/66; PULSE 77; RESP 18; TEMP 36.7; O2SAT 99
--- NOTE | 2019-07-31 05:58 | PCM.RX.CS ---
Consult Pharmacy has been consulted to manage selected antiobiotic: Vancomycin Type of Consult: Follow-up Suspected Infection: Sepsis Prior Doses of Antibiotics Received/Current Regimen: Medications Vancomycin HCl 1,500 mg/ (Sodium Chloride) 530 mls @ 250 mls/hr IV Q8H ARIANNE to begin 07/31/19 1300 Discontinued Medications Vancomycin HCl 2,000 mg/ (Sodium Chloride) 540 mls @ 250 mls/hr IV Q12H ARIANNE Last Admin: 07/31/19 04:13 Dose: 250 mls/hr Documented by: Labs: Sodium 143 mmol/L (136-145) 07/30/19 03:50 Potassium 4.3 mmol/L (3.5-5.1) 07/30/19 03:50 Chloride 110 mmol/L (98-107) H 07/30/19 03:50 Carbon Dioxide 22.0 mmol/L (21.0-32.0) 07/30/19 03:50 Anion Gap 11 (5-15) 07/30/19 03:50 BUN 16 mg/dL (7-18) 07/30/19 03:50 Creatinine 0.80 mg/dL (0.70-1.30) 07/30/19 03:50 Est GFR (MDRD) Af Amer 142 mL/min (>60) 07/30/19 03:50 Est GFR (MDRD) Non-Af 117 mL/min (>60) 07/30/19 03:50 BUN/Creatinine Ratio 20.1 RATIO (10-20) H 07/30/19 03:50 Glucose 263 mg/dL (74-106) H 07/30/19 03:50 Vancomycin Trough 13.1 ug/mL (5.0-15.0) 07/31/19 03:30 Microbiology: Microbiology 07/29/19 14:00 Tissue - Buttock Gram Stain - Final 07/29/19 14:00 Tissue - Buttock Wound Culture - Preliminary No growth-Final to follow 07/28/19 11:03 Blood Culture (Wb) - Anticubital Right Blood Culture - Preliminary No growth in 48 hours. 07/28/19 10:55 Blood Culture (Wb) - Anticubital Left Blood Culture - Preliminary No growth in 48 hours. 07/28/19 16:00 Wound - Buttock Gram Stain - Final 07/28/19 16:00 Wound - Buttock Wound Culture - Final Escherichia coli Gram positive organism 07/28/19 12:50 Urine, Clean Catch Urine Culture - Final Culture exhibits no growth. Weight used for dosin kg Estimated Creatinine Clearance: 120.49 Goal Trough: 15-20 mcg/mL Pharmacy Plan for Drug Dosing: Vancomycin trough returned at 13.1 mg/L is below goal of 15-20. The dose will be increased to Vancomycin 1500mg IV q8h to begin 07/31/19 1300. Pharmacy Service will continue to monitor and adjust dosing as required. Follow-Up Labs: Trough Vancomycin - before 4th dose of new regimen Labs to be done on [date and time ordered]: 08/01/19 1230 before 4th dose of new regimen
[2019-07-31] MEDS: 0.9% NaCl Peripheral Flush Adult/Peds IV ×4 (06:11→22:48)
[2019-07-31] MEDS: Enoxaparin 40 MG/0.4 ML Syringe SC (06:21)
[2019-07-31 06:25] LABS: Bedside Glucose 190 mg/dL (70-110)
--- NOTE | 2019-07-31 08:44 | PN_ITS ---
Patient Problems: Active and Suspected Problems (Last Reviewed 07/29/19 @ 00:16 by Tyron Yang MD) Severe sepsis (Acute) Subjective: Chief complaint: Follow-up after consultation for severe sepsis and postoperative medical management. Patient seen and examined. No acute events overnight. Patient mentioned that his abdominal pain improving but upon standing and walking, he does have abdominal pain which is 2-3 out of 10 in severity. He mentioned that he cannot sleep on his side because of pain. He denies fever or chills. His vital signs are stable. - Physical Exam General: Alert, Oriented x3, Cooperative, No apparent distress HEENT: Atraumatic, PERRLA, EOMI, Normocephalic Oral: Moist Mucosa, No Gingival or Mucosal Lesions/ Ulcerations Neck: Supple, No JVD, Negative Carotid Bruits, Trachea Midline, Thyroid Normal Size and Texture Lungs: Clear to auscultation, Normal air movement, No rhonchi, No wheeze, No rales Cardiovascular: Regular rate, Regular Rhythm, Normal S1, Normal S2, PMI Normal Abdomen: Bowel Sounds Present, Soft, Non-Distended, No Hepato-splenomegaly, Tender Extremities: No clubbing, No cyanosis, No edema Skin: No rashes, Ulcer/ Wound Lymphatic: No Cervical, Supraclavicular, or Inguinal Adenopathy Neurological: Cranial nerves II-XII grossly intact, Motor Exam 5/5 strength throughout Psych/Mental Status: Normal Affect, Appropriate, Alert and oriented to time, place, person, mood and affect Vital Signs Temp Pulse Resp BP Pulse Ox 98.1 F 77 18 114/66 99 07/31/19 04:22 07/31/19 04:22 07/31/19 04:22 07/31/19 04:22 07/31/19 04:22 Oxygen Flow Rate (L/min) 2 Oxygen Delivery Method Room Air Weight: 231 lb 6.39 oz Body Mass Index (BMI) 36.2 Finger Stick Blood Glucose 154 Intake and Output for Last 24 Hours 07/29/19 07/30/19 07/31/19 23:59 23:59 23:59 Intake Total 4523.34 / 4523.34 3823.91 / 3823.91 1033.75 / 1033.75 Output Total 2200 / 2200 4100 / 4100 1200 / 1200 Balance 2323.34 / 2323.34 -276.09 / -276.09 -166.25 / -166.25 Microbiology Past 72 Hours 07/28/19 16:00 Gram Stain - Final Wound - Buttock Wound Culture - Final Escherichia coli Coag Negative Staph Gram positive kaylah 07/29/19 14:00 Gram Stain - Final Tissue - Buttock Wound Culture - Preliminary No growth-Final to follow 07/28/19 11:03 Blood Culture - Preliminary Blood Culture (Wb) - Anticubital Right No growth in 48 hours. 07/28/19 10:55 Blood Culture - Preliminary Blood Culture (Wb) - Anticubital Left No growth in 48 hours. 07/28/19 12:50 Urine Culture - Final Urine, Clean Catch Culture exhibits no growth. Laboratory Tests Past 24 Hrs 07/30/19 07/31/19 03:14 03:30 Vancomycin Trough 10.5 13.1 POC Glucose 07/31/19 07/30/19 07/30/19 06:19 23:59 17:05 POC Glucose 190 H 171 H 213 H 07/30/19 11:16 POC Glucose 241 H Medical Necessity - Tobacco Use Smoking Status: Former smoker Tobacco Use: Cigarettes Assessment/Plan All Active Problems (Last Reviewed 07/29/19 @ 00:16 by Tyron Yang MD) Severe sepsis (Acute) This is a 34 years old male patient admitted for acute purulent hidradenitis of the left gluteal/perianal region with severe sepsis and also had a recent history of anterior abdominal wall hidradenitis with necrotizing soft tissue infection status post anterior abdominal wall excisional debridement and abdominal panniculectomy. #1 acute purulent hidradenitis/abscess of the left gluteal/perianal region/severe sepsis: Status post incision and drainage, postoperative day 2. Remained on IV vancomycin and Zosyn. His vital signs are stable, has been afebrile for the last 48 hours. No leukocytosis. Wound culture revealed E. coli, gram-negative rods and gram-positive organism, final is pending. Blood cultures showed no growth in 48 hours. Plastic surgery is on the case. Plan to continue same treatment. #2 recent history of anterior abdominal wall hydradenitis with necrotizing soft tissue infection: Status post anterior abdominal wall debridement and abdominal panniculectomy. This was done on July 19, 2019. Patient was on Augmentin as outpatient, now on IV vancomycin and Zosyn as above. Wound culture at that time revealed Streptococcus anginosus and actinomyces meyeri. Plan as above. #3 type 2 diabetes mellitus: Blood sugar has been under fair control. Patient refused sliding scale, continue glimepiride and metformin. #4 panic attacks: Patient mentioned that he does have those attacks only because of the abdominal pain due to the recent surgery and wound VAC. He is on Valium as needed. #5 DVT prophylaxis: Subcu Lovenox. This note was generated with [employer] dictation software. It may contain incorrect words, spelling, and punctuation that were not noted in checking the note before signing. Code Visit Inpatient E&M: 94814 Subs Hosp L2
[2019-07-31] MEDS: Glimepiride 4 MG Tablet PO (09:12)
[2019-07-31] MEDS: Pantoprazole Sodium 20 MG Tablet PO (09:12)
[2019-07-31] MEDS: Docusate Sodium 100 MG Capsule PO (09:12)
[2019-07-31] MEDS: Famotidine 20 MG Tablet PO (09:12)
[2019-07-31] MEDS: metFORMIN HCl 850 MG Tablet PO (09:12)
[2019-07-31 09:30] VITALS: PULSE 72
[2019-07-31 10:38] VITALS: BP 119/70; PULSE 66; RESP 18; TEMP 36.6; O2SAT 95
--- NOTE | 2019-07-31 11:37 | PN.SURG_ITS ---
Subjective: Postop #2 Patient complains of wound pain. Tolerated Dakin's dressing changes reasonably well. Needed IV analgesia. - Physical Exam General: Alert, Oriented x3 HEENT: PERRLA, EOMI Oral: Moist Mucosa Neck: Supple Abdomen: Soft, Non-Distended Skin: Ulcer/ Wound - abdominal wall wound is stable with good granulation tissue. gluteal/perianal wound is stable. No active bleeding noted. No further evidence of infection at this time. Dakin's dressing change was painful but tolerated reasonably well. Neurological: Cranial nerves II-XII grossly intact Psych/Mental Status: Normal Affect, Appropriate Vital Signs Temp Pulse Resp BP Pulse Ox 97.8 F 66 18 119/70 95 07/31/19 10:38 07/31/19 10:38 07/31/19 10:38 07/31/19 10:38 07/31/19 10:38 Oxygen Flow Rate (L/min) 2 Oxygen Delivery Method Room Air Weight: 231 lb 6.39 oz Body Mass Index (BMI) 36.2 Finger Stick Blood Glucose 154 Intake and Output for Last 24 Hours 07/29/19 07/30/19 07/31/19 23:59 23:59 23:59 Intake Total 4523.34 / 4523.34 3823.91 / 3823.91 1083.75 / 1083.75 Output Total 2200 / 2200 4100 / 4100 1200 / 1200 Balance 2323.34 / 2323.34 -276.09 / -276.09 -116.25 / -116.25 Microbiology Past 72 Hours 07/28/19 16:00 Gram Stain - Final Wound - Buttock Wound Culture - Final Escherichia coli Coag Negative Staph Gram positive kaylah 07/29/19 14:00 Gram Stain - Final Tissue - Buttock Wound Culture - Preliminary No growth-Final to follow 07/28/19 11:03 Blood Culture - Preliminary Blood Culture (Wb) - Anticubital Right No growth in 48 hours. 07/28/19 10:55 Blood Culture - Preliminary Blood Culture (Wb) - Anticubital Left No growth in 48 hours. 07/28/19 12:50 Urine Culture - Final Urine, Clean Catch Culture exhibits no growth. Laboratory Tests Past 24 Hrs 07/30/19 07/31/19 03:14 03:30 Vancomycin Trough 10.5 13.1 POC Glucose 09/07/30/19 07/30/19 06:19 23:59 17:05 POC Glucose 190 H 171 H 213 H Medical Necessity - Tobacco Use Smoking Status: Former smoker Tobacco Use: Cigarettes Assessment/Plan All Active Problems (Last Reviewed 07/29/19 @ 00:16 by Tyron Yang MD) Severe sepsis (Acute) 1. Hidradenitis abscess bilateral superior gluteal/perianal area. 2. Hidradenitis. 3. Diabetes mellitus. 4. Sepsis. 5. Smoker. 6. Recent surgery for surgical preparation abdominal wall with excisional debridement skin and subcutaneous tissue and fascia necrotizing soft tissue hidradenitis infection (492 cm2) and abdominal panniculectomy. 7. s/p surgical preparation bilateral superior gluteal/perianal area with excision hidradenitis abscess (143 cm2). Continue Dakin's dressing changes daily. Still needs IV analgesia. Continue IV Vancomycin and Zosyn. Will place a PICC line for intermediate designer IV antibiotics. So far E. coli is present along with Coag negative Staph and Gram positive kaylah. May discharge on Zosyn. Prealbumin is 7.6. Encourage nutritional supplementation with protein to help the healing process. HgbA1c is 7.8. Before any elective wound closure is done, the HgbA1c needs to be 8 or less. His wounds are complex and painful and he needs IV antibiotics. He will be evaluated for an ECF. Discussed with the patient the importance of keeping his gluteal/perianal wound clean after bowel movements by getting in the shower to cleanse the wound. If stool contamination is an issue, he would need a temporary diverting colostomy. At that time, the abdominal wall wound would need to be closed with a complex secondary wound closure prior to proceeding with a colostomy. Encouraged patient to stop smoking as it may have deleterious effects on wound healing.
[2019-07-31 12:06] LABS: Bedside Glucose 130 mg/dL (70-110)
[2019-07-31] MEDS: diazePAM 5 MG Tablet PO ×2 (14:05→18:51)
[2019-07-31 17:36] LABS: Bedside Glucose 91 mg/dL (70-110)
[2019-07-31] MEDS: HYDROmorphone 1 MG/ML Syringe IV (17:41)
[2019-07-31] MEDS: DAKIN'S SOL HALF STRENGTH (=0.25%) 1 APPLIC TOPICAL (18:46)
[2019-07-31] MEDS: 0.9% NaCl IVPB Med Flush (250 mL) 15 ML IV (19:03)
[2019-07-31 20:34] VITALS: BP 118/73; PULSE 89; RESP 18; TEMP 37; O2SAT 97
[2019-07-31] MEDS: metFORMIN HCl 500 MG Tablet PO (22:49)
[2019-07-31 23:11] LABS: Bedside Glucose 88 mg/dL (70-110)
[2019-08-01] MEDS: Famotidine 20 MG Tablet PO ×3 (01:08→22:51)
[2019-08-01] MEDS: Escitalopram Oxalate 10 MG Tablet PO ×2 (01:08→22:51)
[2019-08-01] MEDS: HYDROmorphone 2 MG TABLET PO ×4 (01:28→20:10)
[2019-08-01 04:49] VITALS: BP 121/80; PULSE 102; RESP 16; TEMP 36.7; O2SAT 97
[2019-08-01] MEDS: 0.9% NaCl Peripheral Flush Adult/Peds IV ×4 (05:56→12:51)
[2019-08-01 06:21] LABS: Hematocrit 38.6 % (40-54); Hemoglobin 12.7 g/dL (13.0-16.5); Mean Corp Hgb Conc 32.9 g/dL (32-36); Mean Corpuscular Hgb 29.7 pg (27.0-32.0); Mean Corpuscular Volume 90.4 fL (80-94); Platelet Count 427 K/mm3 (150-450); RBC Distribution Width CV 12.8 % (11.6-14.6); RBC Distribution Width SD 41.8 fl (35.1-43.9); Red Blood Count 4.27 M/mm3 (4.6-6.2); White Blood Count 11.6 K/mm3 (4.4-11.0)
[2019-08-01 06:26] LABS: Anion Gap 8 (5-15); BUN 21 mg/dL (7-18); BUN/Creat Ratio 22.8 RATIO (10-20); Calcium,Total 8.6 mg/dL (8.5-10.1); Chloride 110 mmol/L (98-107); Creatinine, Serum 0.92 mg/dL (0.70-1.30); EST Glomerular Filtration Rate 99 mL/min (>60); Est Glom Filt Rate - Afr Amer 120 mL/min (>60); Estimated Creatinine Clearance 104.78 ml/min; Glucose 82 mg/dL (74-106); Potassium 3.7 mmol/L (3.5-5.1); Sodium Level 144 mmol/L (136-145)
[2019-08-01] MEDS: HYDROmorphone 1 MG/ML Syringe IV ×2 (06:45→12:51)
[2019-08-01] MEDS: Enoxaparin 40 MG/0.4 ML Syringe SC (07:27)
[2019-08-01 07:41] LABS: Bedside Glucose 85 mg/dL (70-110)
[2019-08-01 07:52] VITALS: BP 125/72; PULSE 82; RESP 16; TEMP 36.7; O2SAT 94
--- NOTE | 2019-08-01 08:08 | NURSING ---
wound photo: sacral/perianal
[2019-08-01 08:19] VITALS: PULSE 82
[2019-08-01] MEDS: Pantoprazole Sodium 20 MG Tablet PO (09:58)
[2019-08-01] MEDS: Glimepiride 4 MG Tablet PO (09:58)
[2019-08-01] MEDS: DAKIN'S SOL HALF STRENGTH (=0.25%) 1 APPLIC TOPICAL (09:58)
[2019-08-01] MEDS: metFORMIN HCl 850 MG Tablet PO (09:58)
--- NOTE | 2019-08-01 10:52 | CASEMGMT ---
RN CM in to discuss discharge plans with patient and . Patient and agreeable to patient possibly going to LTACH or SNF at discharge. RN CM provided information regarding LTACHs and SNFs and provided list of in-network facilities. Patient and reviewing information and will follow-up with CM with decision. RN CM will continue to follow this patient and plan for a safe discharge.
--- NOTE | 2019-08-01 11:37 | PCM.PROGNOTE ---
Subjective: Hospitalist note: Consulted for severe sepsis and post op management of chronic medical conditions. Patient is a 34-year-old male admitted to the hospital for acute purulent hidradenitis of the left gluteal/perianal region with severe sepsis. Recently had anterior abdominal wall hidradenitis with necrotizing soft tissue infection with extensive excisional debridement and abdominal panniculectomy. Postoperative day #3 status post excision of hidradenitis abscess of the superior gluteal/perianal area. Zosyn and vancomycin day #5 Afebrile for greater than 48 hours. Vital signs are stable. He is 94 to 97% saturated on room air. All lab was personally reviewed. White blood cell count is 11.6, down from 14.1 at admission. Hemoglobin is stable at 12.7. Platelets are within normal limits. BMP is remarkable for an elevated BUN at 21 with a creatinine of 0.92. Blood sugars are well controlled. All cultures were reviewed. Blood cultures had no growth in 48 hours. A culture of the wound from 07/28/2019 grew E. coli, coag negative staph and a gram-positive kaylah. Culture of the buttock done on 07/29/2019 had no growth aerobically and check for anaerobes is still pending. Plan is for LTAC or SNF at discharge. He is somewhat constipated. He did have a BM today. He denies painful swallowing or sores in his mouth. Denies calf pain. No shortness of breath, no cough, no chest pain. - Physical Exam General: Alert, Oriented x3, Cooperative, - - Sitting in the recliner at the bedside. HEENT: Atraumatic, PERRLA, EOMI, Normocephalic Oral: Moist Mucosa Neck: Supple, No Nodes, Trachea Midline Lungs: Clear to auscultation Cardiovascular: Regular rate, Regular Rhythm, Normal S1, Normal S2, No Gallop Abdomen: Bowel Sounds Present, Soft, Non Tender, Non-Distended Extremities: No edema Skin: - - the abdominal wound is granulating and there is no odor and no purulent DC. the posterior wound has cautery torres and some stool in it. Viewed the pictures in the ostomy note. Neurological: Cranial nerves II-XII grossly intact, Neuro grossly intact Psych/Mental Status: Normal Affect, Appropriate Vital Signs Temp Pulse Resp BP Pulse Ox 98.1 F 82 16 125/72 H 94 09/23/19 07:52 08/01/19 08:19 08/01/19 07:52 08/01/19 07:52 08/01/19 07:52 Oxygen Flow Rate (L/min) 2 Oxygen Delivery Method Room Air Weight: 231 lb 6.39 oz Body Mass Index (BMI) 36.2 Finger Stick Blood Glucose 154 Intake and Output for Last 24 Hours 07/30/19 07/31/19 08/01/19 23:59 23:59 23:59 Intake Total 3823.91 / 3823.91 4205.00 / 4205.00 971 / 971 Output Total 4100 / 4100 2100 / 2100 Balance -276.09 / -276.09 2105.00 / 2105.00 971 / 971 Microbiology Past 72 Hours 07/29/19 14:00 Gram Stain - Final Tissue - Buttock Wound Culture - Final No growth aerobically. Anaerobic Culture - Preliminary 07/28/19 16:00 Gram Stain - Final Wound - Buttock Wound Culture - Final Escherichia coli Coag Negative Staph Gram positive kaylah 07/28/19 11:03 Blood Culture - Preliminary Blood Culture (Wb) - Anticubital Right No growth in 48 hours. 07/28/19 10:55 Blood Culture - Preliminary Blood Culture (Wb) - Anticubital Left No growth in 48 hours. 07/28/19 12:50 Urine Culture - Final Urine, Clean Catch Culture exhibits no growth. Laboratory Tests Past 24 Hrs 08/01/19 08/01/19 05:28 05:28 WBC 11.6 H RBC 4.27 L Hgb 12.7 L Hct 38.6 L MCV 90.4 MCH 29.7 MCHC 32.9 RDW Std Deviation 41.8 RDW Coeff of Cindi 12.8 Plt Count 427 MPV 9.0 Sodium 144 Potassium 3.7 Chloride 110 H Carbon Dioxide 26.0 Anion Gap 8 BUN 21 H Creatinine 0.92 Estim Creat Clear Calc 104.78 Est GFR (MDRD) Af Amer 120 Est GFR (MDRD) Non-Af 99 BUN/Creatinine Ratio 22.8 H Glucose 82 Calcium 8.6 POC Glucose 08/01/19 07/31/19 07/31/19 07:25 22:54 17:29 POC Glucose 85 88 91 07/31/19 12:03 POC Glucose 130 H Medical Necessity - Tobacco Use Smoking Status: Former smoker Tobacco Use: Cigarettes Assessment/Plan All Active Problems (Last Reviewed 07/29/19 @ 00:16 by Tyron Yang MD) Severe sepsis (Acute) Impressions 1. Severe sepsis due to acute purulent hidradenitis/abscess of the left gluteal and perianal region. Status post I&D. POD #3. Recent hx of hidradenitis/abscess of the abdominal wall, status post incision and debridement with panniculectomy on 07/19/2019. Wound culture at the time of the panniculectomy grew Streptococcus angina gnosis and actinomyces Meyeri. Wound culture on the pericanal/buttock wound after I&D has no growth. No hx of MRSA. Continue Vanco and Zosyn at this time and consult Dr. Villatoro to participate in management of the antibiotics. 2. Diabetes mellitus type 2-not adequately controlled with a hemoglobin A1c of 7.8. Blood sugars are currently well controlled. Continue metformin and glimepiride 3. Morbid obesity - wt loss encouraged. 4. panic attacks - on PRN Valium 5. DVT prophylaxis with enoxaparin Continue Hansel for wound healing. Consult Dr. Villatoro-may be able to Descalate antibiotic coverage Code Visit Inpatient E&M: 08216 Subs Hosp L2
[2019-08-01 12:50] LABS: Bedside Glucose 133 mg/dL (70-110)
[2019-08-01] MEDS: diazePAM 5 MG Tablet PO ×2 (12:51→22:53)
[2019-08-01 13:12] LABS: Vancomycin, Trough Level 19.9 ug/mL (5.0-15.0)
--- NOTE | 2019-08-01 13:31 | NURSING ---
wound photo: lower abdomen
[2019-08-01 14:35] VITALS: BP 109/58; PULSE 79; RESP 14; TEMP 36.7; O2SAT 94
--- NOTE | 2019-08-01 14:35 | CASEMGMT ---
RN CM in to discuss discharge planning with patient and . and patient would like LTACH at discharge with [facility] in [place]. RN CM will send referral to [facility] in [place] and awaiting call back. CM will continue to follow this patient and plan for a safe discharge.
--- NOTE | 2019-08-01 15:53 | CHAPLAIN ---
Type of Pastoral Visit _x__ Initial Visit ___ Follow-up Visit ___ On-call Visit ___ General Patient Visit ___ Spiritual Assessment ___ Family Conference ___ Bereavement ___ Rapid Response ___ Code Blue ___ Other (describe below) Pastoral Care Referral From _x__ Patient ___ Family ___ Nurse ___ Physician ___ General Accounting Clerk ___ Drill Sergeant ___ Other (describe below) Sacrament/Intervention _x__ Active listening ___ Anointing ___ Samaritan ___ Bereavement ___ Communion _x__ Fatimah exploration ___ _x__ Life review _x__ Prayer ___ Reconciliation ___ Sacrament of Sick _x__ Supportive presence ___ Wedding ___ Other (describe below) Pastoral Comments patient and spouse in room; pt admits to having difficulty accepting length of his recovery and missing his family at home; pt asks questions of spiritual nature and related to how to pray in this kind of situation; spouse is also active in conversation; pt very open to spiritual care and welcomes future visits from collar trimmer
--- NOTE | 2019-08-01 16:09 | PCM.RX.CS ---
Consult Pharmacy has been consulted to manage selected antiobiotic: Vancomycin Type of Consult: Follow-up Suspected Infection: Skin/Soft tissue Prior Doses of Antibiotics Received/Current Regimen: 8 Labs: Sodium 144 mmol/L (136-145) 08/01/19 05:28 Potassium 3.7 mmol/L (3.5-5.1) 08/01/19 05:28 Chloride 110 mmol/L (98-107) H 08/01/19 05:28 Carbon Dioxide 26.0 mmol/L (21.0-32.0) 08/01/19 05:28 Anion Gap 8 (5-15) 08/01/19 05:28 BUN 21 mg/dL (7-18) H 08/01/19 05:28 Creatinine 0.92 mg/dL (0.70-1.30) 08/01/19 05:28 Est GFR (MDRD) Af Amer 120 mL/min (>60) 08/01/19 05:28 Est GFR (MDRD) Non-Af 99 mL/min (>60) 08/01/19 05:28 BUN/Creatinine Ratio 22.8 RATIO (10-20) H 08/01/19 05:28 Glucose 82 mg/dL (74-106) 08/01/19 05:28 Vancomycin Trough 19.9 ug/mL (5.0-15.0) H 08/01/19 12:25 repeat trough level prior to 4th new dose Microbiology: Microbiology 07/29/19 14:00 Tissue - Buttock Gram Stain - Final 07/29/19 14:00 Tissue - Buttock Wound Culture - Final No growth aerobically. 07/29/19 14:00 Tissue - Buttock Anaerobic Culture - Preliminary Checking for anaerobes, further studies to follow. 07/28/19 16:00 Wound - Buttock Gram Stain - Final 07/28/19 16:00 Wound - Buttock Wound Culture - Final Escherichia coli Coag Negative Staph Gram positive kaylah 07/28/19 11:03 Blood Culture (Wb) - Anticubital Right Blood Culture - Preliminary No growth in 48 hours. 07/28/19 10:55 Blood Culture (Wb) - Anticubital Left Blood Culture - Preliminary No growth in 48 hours. 07/28/19 12:50 Urine, Clean Catch Urine Culture - Final Culture exhibits no growth. Weight used for dosin kg Estimated Creatinine Clearance: 105 Goal Trough: 15-20 mcg/mL - Decrease dose to Vancomycin 1250mg q8h and recheck vanco trough prior to 4th new dose Pharmacy Plan for Drug Dosing: Pharmacy Service will continue to monitor and adjust dosing as required.
--- NOTE | 2019-08-01 17:23 | CHAPLAIN ---
Type of Pastoral Visit ___ Initial Visit _x__ Follow-up Visit ___ On-call Visit ___ General Patient Visit ___ Spiritual Assessment ___ Family Conference ___ Bereavement ___ Rapid Response ___ Code Blue ___ Other (describe below) Pastoral Care Referral From _x__ Patient ___ Family ___ Nurse ___ Physician ___ Chuck Wagon Cook ___ Sand Slinger ___ Other (describe below) Sacrament/Intervention _x__ Active listening ___ Anointing ___ Mormonism ___ Bereavement ___ Communion _x__ Fatimah exploration ___ _x__ Life review _x__ Prayer ___ Reconciliation ___ Sacrament of Sick _x__ Supportive presence ___ Wedding ___ Other (describe below) Pastoral Comments MS ADAM called this plant culture manager to notify that patient has requested a follow up visit and support; long conversation that explored ability to connect with God again and addressing some fears about his future
--- NOTE | 2019-08-01 17:39 | PN.SURG_ITS ---
Subjective: Postop #3 Patient complains of wound pain. Tolerated Dakin's dressing changes reasonably well. Needed IV analgesia. - Physical Exam General: Alert, Oriented x3 HEENT: PERRLA, EOMI Oral: Moist Mucosa Neck: Supple Abdomen: Soft, Non-Distended Skin: Ulcer/ Wound - abdominal wall wound is stable with good granulation tissue. gluteal/perianal wound is stable. No active bleeding noted. No further evidence of infection at this time. Dakin's dressing change was painful but tolerated reasonably well. Neurological: Cranial nerves II-XII grossly intact Psych/Mental Status: Normal Affect, Appropriate Vital Signs Temp Pulse Resp BP Pulse Ox 98.0 F 79 14 109/58 L 94 08/01/19 14:35 08/01/19 14:35 08/01/19 14:35 08/01/19 14:35 08/01/19 14:35 Oxygen Flow Rate (L/min) 2 Oxygen Delivery Method Room Air Weight: 231 lb 6.39 oz Body Mass Index (BMI) 36.2 Finger Stick Blood Glucose 154 Intake and Output for Last 24 Hours 07/30/19 07/31/19 08/01/19 23:59 23:59 23:59 Intake Total 3823.91 / 3823.91 4205.00 / 4205.00 1807.5 / 1807.5 Output Total 4100 / 4100 2100 / 2100 Balance -276.09 / -276.09 2105.00 / 2105.00 1807.5 / 1807.5 Microbiology Past 72 Hours 07/29/19 14:00 Gram Stain - Final Tissue - Buttock Wound Culture - Final No growth aerobically. Anaerobic Culture - Preliminary Checking for anaerobes, further studies to follow. 07/28/19 16:00 Gram Stain - Final Wound - Buttock Wound Culture - Final Escherichia coli Coag Negative Staph Gram positive kaylah 07/28/19 11:03 Blood Culture - Preliminary Blood Culture (Wb) - Anticubital Right No growth in 48 hours. 07/28/19 10:55 Blood Culture - Preliminary Blood Culture (Wb) - Anticubital Left No growth in 48 hours. 07/28/19 12:50 Urine Culture - Final Urine, Clean Catch Culture exhibits no growth. Laboratory Tests Past 24 Hrs 08/01/19 08/01/19 08/01/19 05:28 05:28 12:25 WBC 11.6 H RBC 4.27 L Hgb 12.7 L Hct 38.6 L MCV 90.4 MCH 29.7 MCHC 32.9 RDW Std Deviation 41.8 RDW Coeff of Cindi 12.8 Plt Count 427 MPV 9.0 Sodium 144 Potassium 3.7 Chloride 110 H Carbon Dioxide 26.0 Anion Gap 8 BUN 21 H Creatinine 0.92 Estim Creat Clear Calc 104.78 Est GFR (MDRD) Af Amer 120 Est GFR (MDRD) Non-Af 99 BUN/Creatinine Ratio 22.8 H Glucose 82 Calcium 8.6 Vancomycin Trough 19.9 H POC Glucose 08/01/19 08/01/19 07/31/19 12:44 07:25 22:54 POC Glucose 133 H 85 88 Medical Necessity - Tobacco Use Smoking Status: Former smoker Tobacco Use: Cigarettes Assessment/Plan All Active Problems (Last Reviewed 07/29/19 @ 00:16 by Tyron Yang MD) Severe sepsis (Acute) 1. Hidradenitis abscess bilateral superior gluteal/perianal area. 2. Hidradenitis. 3. Diabetes mellitus. 4. Sepsis. 5. Smoker. 6. Recent surgery for surgical preparation abdominal wall with excisional debridement skin and subcutaneous tissue and fascia necrotizing soft tissue hidradenitis infection (492 cm2) and abdominal panniculectomy. 7. s/p surgical preparation bilateral superior gluteal/perianal area with excision hidradenitis abscess (143 cm2). Continue Dakin's dressing changes daily. Still needs IV analgesia. Continue IV Vancomycin and Zosyn. PICC line has been placed for watermelon harvesting supervisor IV antibiotics. So far E. coli is present along with Coag negative Staph and Gram positive kaylah. Will discharge on Zosyn. Will stop the Vancomycin. Prealbumin is 7.6. Encourage nutritional supplementation with protein to help the healing process. HgbA1c is 7.8. Before any elective wound closure is done, the HgbA1c needs to be 8 or less. His wounds are complex and painful and he needs IV antibiotics. He will be evaluated for an ECF. Discussed with the patient the importance of keeping his gluteal/perianal wound clean after bowel movements by getting in the shower to cleanse the wound. If stool contamination is an issue, he would need a temporary diverting colostomy. At that time, the abdominal wall wound would need to be closed with a complex secondary wound closure prior to proceeding with a colostomy. Encouraged patient to stop smoking as it may have deleterious effects on wound healing.
[2019-08-01 18:30] LABS: Bedside Glucose 117 mg/dL (70-110)
[2019-08-01 20:35] VITALS: BP 103/55; PULSE 79; RESP 16; TEMP 36.8; O2SAT 96
[2019-08-01 22:51] LABS: Bedside Glucose 100 mg/dL (70-110)
[2019-08-01] MEDS: metFORMIN HCl 500 MG Tablet PO (22:52)
[2019-08-02 02:35] VITALS: BP 105/64; PULSE 76; RESP 18; TEMP 36.8; O2SAT 99
[2019-08-02] MEDS: HYDROmorphone 2 MG TABLET PO ×3 (02:52→19:59)
[2019-08-02] MEDS: Enoxaparin 40 MG/0.4 ML Syringe SC (06:30)
[2019-08-02 06:55] LABS: Bedside Glucose 74 mg/dL (70-110)
[2019-08-02] MEDS: Pantoprazole Sodium 20 MG Tablet PO (10:10)
[2019-08-02] MEDS: Famotidine 20 MG Tablet PO ×2 (10:10→22:42)
[2019-08-02] MEDS: metFORMIN HCl 850 MG Tablet PO (10:10)
[2019-08-02] MEDS: Glimepiride 4 MG Tablet PO (10:10)
[2019-08-02] MEDS: Docusate Sodium 100 MG Capsule PO (10:10)
--- NOTE | 2019-08-02 10:23 | CON.PCM_ITS ---
Problem List (1) Severe sepsis Status: Acute Reason for Consult: abscess Consulted by: Dr. Longoria History of Present Illness: The patient is a 34 year old M with hidradenitis, had abd panniculectomy on 07/[address] Luis, sent home on doxycycline. Surg cxs showed strep and actinomyces, so changed to augmentin, but he developed fever, malaise, came to ED. Found to have elevated lactate and purulence from sacral area. Taken to OR 07/[address] Luis for I&D with excision of extensive necrosis and pus. No bone involvement seen. Has been on vanc/zosyn. Picc placed, feeling ok, but pain at surgical sites. Full ROS performed and neg except as noted above. - Medical History Past Medical History (Chronic Problems): Chronic Problems (Last Reviewed 07/29/19 @ 00:16 by Tyron Yang MD) Abdominal panniculus (Chronic) Intertrigo (Chronic) abdominal wall skin crease intertrigo Necrotizing soft tissue infection (Chronic) Diabetes (Chronic) Smoker (Chronic) Hidradenitis suppurativa (Chronic) abdominal wall skin crease bilateral inguinal/medial thighs Left axillary hidradenitis (Chronic) Hidradenitis suppurativa of anus (Chronic) Allergies/Adverse Reactions: Allergies sulfamethoxazole [From Bactrim] Allergy (Severe, Verified 07/28/19 09:55) BODY RASH trimethoprim [From Bactrim] Allergy (Severe, Verified 07/28/19 09:55) BODY RASH Home Medications: Ambulatory Orders Medication Instructions Recorded calcium carb 300 mg-D3 800 2 tab PO DAILY 06/10/19 unit-mag ox 25 mg-gyroscopic instrument tester 0.5 mg-augusta-Zn tablet famotidine 20 mg tablet 20 mg PO BID 06/10/19 omeprazole 20 mg capsule,delayed 20 mg PO DAILY 06/10/19 release Ergocalciferol [Vitamin D] 50,000 unit PO FR 07/12/19 Metformin HCl 500 mg PO QHS 07/12/19 Diazepam [Valium] 5 mg PO 4X/DAY PRN PRN #30 tab 07/20/19 proMETHazine tablet [Phenergan 25 mg PO 4X/DAY PRN PRN #30 tab 07/20/19 tablet] amoxicillin 875 mg-potassium 1 tab PO BID 14 Days #28 tab 07/26/19 clavulanate 125 mg tablet fentanyl 50 mcg/hr transdermal 1 patch TRANSDERMAL Q72H #5 ea 07/27/19 patch Docusate Sodium [Colace] 100 mg PO DAILY 07/28/19 Glimepiride 4 mg PO DAILY 07/28/19 Metformin HCl 850 mg PO DAILY 07/28/19 - Social History SMOKING STATUS:: Former smoker Vital Signs Temp Pulse Resp BP Pulse Ox 98.3 F 76 18 105/64 99 08/02/19 02:35 08/02/19 02:35 08/02/19 02:35 08/02/19 02:35 08/02/19 02:35 Oxygen Flow Rate (L/min) 2 Oxygen Delivery Method Room Air Weight: 104.961 kg Body Mass Index (BMI) 36.2 Finger Stick Blood Glucose 154 Microbiology Past 72 Hours 07/29/19 14:00 Gram Stain - Final Tissue - Buttock Wound Culture - Final No growth aerobically. Anaerobic Culture - Preliminary Checking for anaerobes, further studies to follow. 07/28/19 16:00 Gram Stain - Final Wound - Buttock Wound Culture - Final Escherichia coli Coag Negative Staph Gram positive kaylah 07/28/19 11:03 Blood Culture - Preliminary Blood Culture (Wb) - Anticubital Right No growth in 48 hours. 07/28/19 10:55 Blood Culture - Preliminary Blood Culture (Wb) - Anticubital Left No growth in 48 hours. 07/28/19 12:50 Urine Culture - Final Urine, Clean Catch Culture exhibits no growth. Laboratory Tests Past 24 Hrs 08/01/19 12:25 Vancomycin Trough 19.9 H - Other Studies Radiology: [] reviewed Other Studies: [] Route of nutrition/ use of supplements: [] Nutritional Intake: [] IV Site: [] Penn Catheter: [] - Physical Exam General: Alert, Oriented x3, Cooperative, No apparent distress HEENT: Atraumatic, PERRLA, EOMI Neck: Supple, No Nodes Lungs: Clear to auscultation, Normal air movement Cardiovascular: Regular rate, Regular Rhythm, No murmurs Abdomen: Soft, Non Tender, Non-Distended Extremities: No edema Skin: Incision - reviewed photos IV Site: PICC, without redness Musculoskeletal: No Tenderness to Palpation of Joints or Extremities Neurological: Cranial nerves II-XII grossly intact - Assessment/Plan Antibiotics: [] Assessment/Plan: [] severe sepsis due to sacral abscess - had panniculectomy 07/19 with strep and actinomyces. Now s/p I&D of sacral abscess and necrosis on 07/[address] Luis. Surg cx with ecoli, CoNS, and GPR. Unable to get diverting ostomy until panniculectomy heals. Narrow vanc/zosyn to vanc/unasyn. Plan on 10-14 days of abx then may need prolonged course of amoxicillin given presence of actino, though it looks like he had good source control with both surgeries. Will follow, thank you, d/w Dr. Longoria. I can follow him if he goes to [facility] in [place].
[2019-08-02 10:25] VITALS: BP 103/72; PULSE 79; RESP 18; TEMP 36.4; O2SAT 95
[2019-08-02] MEDS: HYDROmorphone 1 MG/ML Syringe IV (10:55)
[2019-08-02] MEDS: 0.9% NaCl Peripheral Flush Adult/Peds IV ×3 (10:58→22:42)
[2019-08-02] MEDS: diazePAM 5 MG Tablet PO (11:01)
[2019-08-02] MEDS: DAKIN'S SOL HALF STRENGTH (=0.25%) 1 APPLIC TOPICAL (12:54)
[2019-08-02 13:05] LABS: Bedside Glucose 74 mg/dL (70-110)
--- NOTE | 2019-08-02 13:07 | PN.SURG_ITS ---
Subjective: Postop #4 Patient complains of wound pain. Tolerated Dakin's dressing changes reasonably well. Needed IV analgesia. - Physical Exam General: Alert, Oriented x3 HEENT: PERRLA, EOMI Oral: Moist Mucosa Neck: Supple Abdomen: Soft, Non-Distended Skin: Ulcer/ Wound - - abdominal wall wound is stable with good granulation tissue. gluteal/perianal wound is stable. No active bleeding noted. No further evidence of infection at this time. Dakin's dressing change was painful but tolerated reasonably well. Needed IV analgesia. Neurological: Cranial nerves II-XII grossly intact Psych/Mental Status: Normal Affect, Appropriate Vital Signs Temp Pulse Resp BP Pulse Ox 97.6 F L 79 18 103/72 95 08/02/19 10:25 08/02/19 10:25 08/02/19 10:25 08/02/19 10:25 08/02/19 10:25 Oxygen Flow Rate (L/min) 2 Oxygen Delivery Method Room Air Weight: 231 lb 6.39 oz Body Mass Index (BMI) 36.2 Finger Stick Blood Glucose 154 Intake and Output for Last 24 Hours 07/31/19 08/01/19 08/02/19 23:59 23:59 23:59 Intake Total 4205.00 / 4205.00 2532.5 / 2532.5 348 / 348 Output Total 2100 / 2100 Balance 2105.00 / 2105.00 2532.5 / 2532.5 348 / 348 Microbiology Past 72 Hours 07/28/19 10:55 Blood Culture - Final Blood Culture (Wb) - Anticubital Left No growth in 5 days. 07/28/19 11:03 Blood Culture - Final Blood Culture (Wb) - Anticubital Right No growth in 5 days. 07/29/19 14:00 Gram Stain - Final Tissue - Buttock Wound Culture - Final No growth aerobically. Anaerobic Culture - Preliminary Checking for anaerobes, further studies to follow. 07/28/19 16:00 Gram Stain - Final Wound - Buttock Wound Culture - Final Escherichia coli Coag Negative Staph Gram positive kaylah Laboratory Tests Past 24 Hrs 08/01/19 12:25 Vancomycin Trough 19.9 H POC Glucose 08/02/19 08/02/19 08/01/19 12:51 06:33 22:47 POC Glucose 74 74 100 08/01/19 18:12 POC Glucose 117 H Medical Necessity - Tobacco Use Smoking Status: Former smoker Tobacco Use: Cigarettes Assessment/Plan All Active Problems (Last Reviewed 07/29/19 @ 00:16 by Tyron Yang MD) Severe sepsis (Acute) 1. Hidradenitis abscess bilateral superior gluteal/perianal area. 2. Hidradenitis. 3. Diabetes mellitus. 4. Sepsis. 5. Smoker. 6. Recent surgery for surgical preparation abdominal wall with excisional debridement skin and subcutaneous tissue and fascia necrotizing soft tissue hidradenitis infection (492 cm2) and abdominal panniculectomy. 7. s/p surgical preparation bilateral superior gluteal/perianal area with excision hidradenitis abscess (143 cm2). Continue Dakin's dressing changes daily. Still needs IV analgesia. PICC line has been placed for intermediate IV antibiotics. So far E. coli is present along with Coag negative Staph and Gram positive kaylah. Previous culture from the abdominal wall showed Streptococcus anginosus and Actinomyces meyeri. Infectious Diseases has evaluated this patient. Recommendations were to continue Vancomycin and change Zosyn to Unasyn. After the IV antibiotics are completed, then proceed with Amoxicillin. Prealbumin is 7.6. Encourage nutritional supplementation with protein to help the healing process. HgbA1c is 7.8. Before any elective wound closure is done, the HgbA1c needs to be 8 or less. His wounds are complex and painful and he needs IV antibiotics. He will be evaluated for an ECF. He has been denied for an LTAC. Will have a Peer to Peer discussion tomorrow. I am concerned that he needs the higher level of acute care that is obtained at an LTAC due to the extensive nature of the wounds both anteriorly on the abdominal wall and posteriorly on his superior gluteal area and perianal area. Aggressive cleanliness in the gluteal and perianal wound is paramount because of the increased risk of stool contamination which may worsen the infection. With his history of diabetes mellitus, the worsening infection may become necrotizing in nature which may be life threatening as well as increased risk of amputation as well. Discussed with the patient the importance of keeping his gluteal/perianal wound clean after bowel movements by getting in the shower to cleanse the wound. If stool contamination is an issue, he would need a temporary diverting colostomy. At that time, the abdominal wall wound would need to be closed with a complex secondary wound closure prior to proceeding with a colostomy. Encouraged patient to stop smoking as it may have deleterious effects on wound healing.
[2019-08-02 17:37] VITALS: BP 106/60; PULSE 75; RESP 18; TEMP 36.9; O2SAT 95
[2019-08-02] MEDS: metFORMIN HCl 500 MG Tablet PO (17:40)
[2019-08-02 18:25] LABS: Bedside Glucose 107 mg/dL (70-110)
--- NOTE | 2019-08-02 19:09 | PCM.PROGNOTE ---
Subjective: All events of the past 24 hours of been reviewed. He is afebrile and hemodynamically stable. He is 95 to 99% saturated on room air. He continues to complain of inadequate pain relief with dressing changes. Denies sores in his mouth, painful swallowing, diarrhea......is afraid to have a BM because he does not want to get stool in the wound. Blood sugars are well controlled and in fact the a.m. blood sugars are lower than I would like. He is on a carb controlled diet and he has candy and soda, not diet, in his room. Suspect he is very non-compliant with diet as an OP. Objective: PHYSICAL EXAM: GENERAL: oriented X 3, Cooperative, NAD, sleepy - lying in bed ORAL: moist mucosa, no mucosal lesions NECK: No JVD, supple, trachea midline LUNGS: CTA, symmetric chest expansion HEART: RRR, Normal S1 and S2, no rub, no gallop ABDOMEN: soft, NT, ND, BS present, no guarding with palpation EXTREMITIES: no edema, no cyanosis, no calf tenderness SKIN: No rashes, I did not examine the wounds today NEUROLOGIC: no focal neurologic deficits PSYCH: appropriate, normal affect, pleasant - Physical Exam Vital Signs Temp Pulse Resp BP Pulse Ox 98.4 F 75 18 106/60 95 08/02/19 17:37 08/02/19 17:37 08/02/19 17:37 08/02/19 17:37 08/02/19 17:37 Oxygen Flow Rate (L/min) 2 Oxygen Delivery Method Room Air Weight: 231 lb 6.39 oz Body Mass Index (BMI) 36.2 Finger Stick Blood Glucose 154 Intake and Output for Last 24 Hours 07/31/19 08/01/19 08/02/19 23:59 23:59 23:59 Intake Total 4205.00 / 4205.00 2532.5 / 2532.5 540 / 540 Output Total 2100 / 2100 Balance 2105.00 / 2105.00 2532.5 / 2532.5 540 / 540 Microbiology Past 72 Hours 07/28/19 10:55 Blood Culture - Final Blood Culture (Wb) - Anticubital Left No growth in 5 days. 07/28/19 11:03 Blood Culture - Final Blood Culture (Wb) - Anticubital Right No growth in 5 days. 07/29/19 14:00 Gram Stain - Final Tissue - Buttock Wound Culture - Final No growth aerobically. Anaerobic Culture - Preliminary Checking for anaerobes, further studies to follow. 07/28/19 16:00 Gram Stain - Final Wound - Buttock Wound Culture - Final Escherichia coli Coag Negative Staph Gram positive kaylah POC Glucose 08/02/19 08/02/19 08/02/19 17:35 12:51 06:33 POC Glucose 107 74 74 08/01/19 22:47 POC Glucose 100 Medical Necessity - Tobacco Use Smoking Status: Former smoker Tobacco Use: Cigarettes Assessment/Plan All Active Problems (Last Reviewed 07/29/19 @ 00:16 by Tyron Yang MD) Severe sepsis (Acute) Impressions 1. Severe sepsis due to acute purulent hidradenitis/abscess of the left gluteal and perianal region. Status post I&D. POD #3. Recent hx of hidradenitis/abscess of the abdominal wall, status post incision and debridement with panniculectomy on 07/19/2019. Wound culture at the time of the panniculectomy grew Streptococcus anginosis and actinomyces Meyeri. Wound culture on the pericanal/buttock wound after I&D has no growth. No hx of MRSA. Antibiotics changed to vancomycin and Unasyn per Dr. Villatoro. 2. Diabetes mellitus type 2-not adequately controlled with a hemoglobin A1c of 7.8. Blood sugars are currently low in the AM on a carb controlled diet. Adjust the Metformin dose - 500 mg BID. If the AM sugar is still low will decrease the amaryl dose 3. Morbid obesity - wt loss encouraged. 4. panic attacks - on PRN Valium 5. DVT prophylaxis with enoxaparin Continue Hansel for wound healing. Add Vitamin C and Zinc and a MV Dr. Luis will do a P2P review tomorrow to get the insurance company to agree to LTACH for adequate wound care.....suspect if he goes to a [facility] he will be back with more necrosis and recurrent sepsis because they just to not have the staff to provide adequate wound care for patients with extensive wounds 1 MG of IV Dilaudid and 1 mg of IV Ativan prior to all dressing changes Code Visit Inpatient E&M: 98449 Subs Hosp L2
[2019-08-02 20:06] VITALS: BP 108/64; PULSE 83; RESP 16; TEMP 36.7; O2SAT 96
[2019-08-02 21:03] LABS: Vancomycin, Trough Level 8.7 ug/mL (5.0-15.0)
[2019-08-02] MEDS: 0.9% NaCl IVPB Med Flush (250 mL) 15 ML IV (22:41)
[2019-08-02] MEDS: Escitalopram Oxalate 10 MG Tablet PO (22:42)
[2019-08-02 22:56] LABS: Bedside Glucose 135 mg/dL (70-110)
[2019-08-03 03:12] VITALS: BP 119/73; PULSE 90; RESP 16; TEMP 37.1; O2SAT 98
[2019-08-03] MEDS: diazePAM 5 MG Tablet PO ×2 (03:16→11:04)
[2019-08-03 06:08] LABS: Absolute Lymphocyte Count 2.41 X10^3/uL (0.83-4.51); Absolute Neutrophil Count 7.2 X10^3/uL (2.0-7.7); Basophil# 0.06 X10^3/uL; Basophil% 0.5 % (0-1); Eosinophil# 0.67 X10^3/uL; Eosinophils% 5.8 % (0-5); Hematocrit 36.3 % (40-54); Hemoglobin 12.4 g/dL (13.0-16.5); Lymphocyte # 2.41 X10^3/ul (4.0); Mean Corp Hgb Conc 34.2 g/dL (32-36); Mean Corpuscular Hgb 30.3 pg (27.0-32.0); Mean Corpuscular Volume 88.8 fL (80-94); Mean Platelet Vol. 8.8 fl (6.2-12.0); Monocyte# 0.96 X10^3/uL; Monocyte% 8.4 % (0-10); NRBC Flagged by Analyzer 0 % (0-5); Neutrophil # 7.18 X10^3/uL (2.7-7.7); Neutrophil % 62.6 % (47-70); Platelet Count 360 K/mm3 (150-450); RBC Distribution Width CV 12.7 % (11.6-14.6); Red Blood Count 4.09 M/mm3 (4.6-6.2); White Blood Count 11.5 K/mm3 (4.4-11.0)
[2019-08-03] MEDS: Enoxaparin 40 MG/0.4 ML Syringe SC (06:13)
[2019-08-03 06:30] LABS: Bedside Glucose 188 mg/dL (70-110)
[2019-08-03 06:32] LABS: Anion Gap 4 (5-15); BUN 14 mg/dL (7-18); BUN/Creat Ratio 15.2 RATIO (10-20); Calcium,Total 8.5 mg/dL (8.5-10.1); Chloride 107 mmol/L (98-107); Creatinine, Serum 0.92 mg/dL (0.70-1.30); EST Glomerular Filtration Rate 99 mL/min (>60); Est Glom Filt Rate - Afr Amer 120 mL/min (>60); Estimated Creatinine Clearance 104.78 ml/min; Glucose 172 mg/dL (74-106); Magnesium 2.1 mg/dL (1.6-2.6); Phosphorus 2.2 mg/dL (2.5-4.9); Potassium 3.6 mmol/L (3.5-5.1); Sodium Level 140 mmol/L (136-145)
[2019-08-03 09:20] VITALS: BP 108/64; PULSE 98; RESP 18; TEMP 37.3; O2SAT 98
[2019-08-03] MEDS: Famotidine 20 MG Tablet PO (09:29)
[2019-08-03] MEDS: metFORMIN HCl 500 MG Tablet PO ×2 (09:30→17:25)
[2019-08-03] MEDS: Pantoprazole Sodium 20 MG Tablet PO (09:30)
[2019-08-03] MEDS: Multivitamins,Therapeutic Tablet 1 TABLET PO (09:30)
[2019-08-03] MEDS: Ascorbic Acid 500 MG Tablet PO ×2 (09:30→17:25)
[2019-08-03] MEDS: Docusate Sodium 100 MG Capsule PO (09:31)
[2019-08-03] MEDS: HYDROmorphone 1 MG/ML Syringe IV (09:53)
[2019-08-03] MEDS: LORazepam 2 MG/ML Syringe 1 MG IV (09:54)
[2019-08-03 10:30] LABS: Bedside Glucose 78 mg/dL (70-110)
--- NOTE | 2019-08-03 10:37 | PN.ID_ITS ---
Subjective: Feeling ok, had pain meds with dressing change. No fever. - Physical Exam General: Alert, Cooperative, No apparent distress Lungs: Clear to auscultation, Normal air movement Cardiovascular: Regular rate, Regular Rhythm Abdomen: Soft, Non Tender, Non-Distended Skin: Ulcer/ Wound - bandaged Vital Signs Temp Pulse Resp BP Pulse Ox 98.8 F 90 16 119/73 98 08/03/19 03:12 08/03/19 03:12 08/03/19 03:12 08/03/19 03:12 08/03/19 03:12 Oxygen Flow Rate (L/min) 2 Oxygen Delivery Method Room Air Weight: 104.961 kg Body Mass Index (BMI) 36.2 Finger Stick Blood Glucose 154 Intake and Output for Last 24 Hours 08/01/19 08/02/19 08/03/19 23:59 23:59 23:59 Intake Total 2532.5 / 2532.5 652 / 652 225 / 225 Balance 2532.5 / 2532.5 652 / 652 225 / 225 Microbiology Past 72 Hours 07/29/19 14:00 Gram Stain - Final Tissue - Buttock Wound Culture - Final No growth aerobically. Anaerobic Culture - Preliminary Checking for anaerobes, further studies to follow. 07/28/19 10:55 Blood Culture - Final Blood Culture (Wb) - Anticubital Left No growth in 5 days. 07/28/19 11:03 Blood Culture - Final Blood Culture (Wb) - Anticubital Right No growth in 5 days. 07/28/19 16:00 Gram Stain - Final Wound - Buttock Wound Culture - Final Escherichia coli Coag Negative Staph Gram positive kaylah Laboratory Tests Past 24 Hrs 08/02/19 08/03/19 08/03/19 20:47 05:55 05:55 WBC 11.5 H RBC 4.09 L Hgb 12.4 L Hct 36.3 L MCV 88.8 MCH 30.3 MCHC 34.2 RDW Std Deviation 41.0 RDW Coeff of Cindi 12.7 Plt Count 360 MPV 8.8 Immature Gran % (Auto) 1.700 H Neut % (Auto) 62.6 Lymph % (Auto) 21.0 [place] % (Auto) 8.4 Eos % (Auto) 5.8 H Baso % (Auto) 0.5 Absolute Neuts (auto) 7.2 Absolute Lymphs (auto) 2.41 Nucleated RBC % 0 Sodium 140 Potassium 3.6 Chloride 107 Carbon Dioxide 29.0 Anion Gap 4 L BUN 14 Creatinine 0.92 Estim Creat Clear Calc 104.78 Est GFR (MDRD) Af Amer 120 Est GFR (MDRD) Non-Af 99 BUN/Creatinine Ratio 15.2 Glucose 172 H Calcium 8.5 Phosphorus 2.2 L Magnesium 2.1 Vancomycin Trough 8.7 POC Glucose 08/03/19 08/03/19 08/02/19 09:29 06:18 22:39 POC Glucose 78 188 H 135 H 08/02/19 08/02/19 17:35 12:51 POC Glucose 107 74 Medical Necessity - Tobacco Use Smoking Status: Former smoker Tobacco Use: Cigarettes Route of nutrition/ use of supplements: [] Nutritional Intake: [] IV Site: [] Penn Catheter: [] - Assessment/Plan Antibiotics: [] Assessment/Plan: [] severe sepsis due to sacral abscess - had panniculectomy 07/19 with strep and actinomyces. Now s/p I&D of sacral abscess and necrosis on 07/[address] Luis. Surg cx with ecoli, CoNS, and GPR. Unable to get diverting ostomy until panniculectomy heals. 08/02 narrowed vanc/zosyn to vanc/unasyn. Plan on 10 days of abx through iv with stop date 08/08 then may need prolonged course of amoxicillin given presence of actino, though it looks like he had good source control with both surgeries. Will follow. I can follow him if he goes to [facility] in [place].
[2019-08-03] MEDS: DAKIN'S SOL HALF STRENGTH (=0.25%) 1 APPLIC TOPICAL (11:05)
--- NOTE | 2019-08-03 12:24 | NURSING ---
pt agreed to complete interview regarding pulmonary disease associated with vaping. faxed to [facility].
--- NOTE | 2019-08-03 13:35 | PN.SURG_ITS ---
Subjective: Postop #5 Patient is tolerating the Dakin's dressing changes a little more each day. Still needs IV analgesia for the dressing changes. - Physical Exam General: Alert, Oriented x3 HEENT: PERRLA, EOMI Oral: Moist Mucosa Neck: Supple Abdomen: Soft, Non-Distended Skin: Ulcer/ Wound - abdominal wall wound is stable with good granulation tissue. gluteal/perianal wound is stable. No active bleeding noted. No further evidence of infection at this time. Dakin's dressing change was painful but tolerated reasonably well. Needed IV analgesia. Neurological: Cranial nerves II-XII grossly intact Psych/Mental Status: Normal Affect, Appropriate Vital Signs Temp Pulse Resp BP Pulse Ox 99.2 F H 98 18 108/64 98 08/03/19 09:20 08/03/19 09:20 08/03/19 09:20 08/03/19 09:20 08/03/19 09:20 Oxygen Flow Rate (L/min) 2 Oxygen Delivery Method Room Air Weight: 231 lb 6.39 oz Body Mass Index (BMI) 36.2 Finger Stick Blood Glucose 154 Intake and Output for Last 24 Hours 08/01/19 08/02/19 08/03/19 23:59 23:59 23:59 Intake Total 2532.5 / 2532.5 652 / 652 883.25 / 883.25 Balance 2532.5 / 2532.5 652 / 652 883.25 / 883.25 Microbiology Past 72 Hours 07/29/19 14:00 Gram Stain - Final Tissue - Buttock Wound Culture - Final No growth aerobically. Anaerobic Culture - Preliminary Checking for anaerobes, further studies to follow. 07/28/19 10:55 Blood Culture - Final Blood Culture (Wb) - Anticubital Left No growth in 5 days. 07/28/19 11:03 Blood Culture - Final Blood Culture (Wb) - Anticubital Right No growth in 5 days. Laboratory Tests Past 24 Hrs 08/02/19 08/03/19 08/03/19 20:47 05:55 05:55 WBC 11.5 H RBC 4.09 L Hgb 12.4 L Hct 36.3 L MCV 88.8 MCH 30.3 MCHC 34.2 RDW Std Deviation 41.0 RDW Coeff of Cindi 12.7 Plt Count 360 MPV 8.8 Immature Gran % (Auto) 1.700 H Neut % (Auto) 62.6 Lymph % (Auto) 21.0 [place] % (Auto) 8.4 Eos % (Auto) 5.8 H Baso % (Auto) 0.5 Absolute Neuts (auto) 7.2 Absolute Lymphs (auto) 2.41 Nucleated RBC % 0 Sodium 140 Potassium 3.6 Chloride 107 Carbon Dioxide 29.0 Anion Gap 4 L BUN 14 Creatinine 0.92 Estim Creat Clear Calc 104.78 Est GFR (MDRD) Af Amer 120 Est GFR (MDRD) Non-Af 99 BUN/Creatinine Ratio 15.2 Glucose 172 H Calcium 8.5 Phosphorus 2.2 L Magnesium 2.1 Vancomycin Trough 8.7 POC Glucose 08/03/19 08/03/19 08/02/19 09:29 06:18 22:39 POC Glucose 78 188 H 135 H 08/02/19 17:35 POC Glucose 107 Medical Necessity - Tobacco Use Smoking Status: Former smoker Tobacco Use: Cigarettes Assessment/Plan All Active Problems (Last Reviewed 07/29/19 @ 00:16 by Tyron Yang MD) Abscess of buttock (Acute) Severe sepsis (Acute) 1. Hidradenitis abscess bilateral superior gluteal/perianal area. 2. Hidradenitis. 3. Diabetes mellitus. 4. Sepsis. 5. Smoker. 6. Recent surgery for surgical preparation abdominal wall with excisional debridement skin and subcutaneous tissue and fascia necrotizing soft tissue hidradenitis infection (492 cm2) and abdominal panniculectomy. 7. s/p surgical preparation bilateral superior gluteal/perianal area with excision hidradenitis abscess (143 cm2). Continue Dakin's dressing changes. Will increase dressing changes to twice a day. Still needs IV analgesia. PICC line has been placed for buttermaker continuous churn IV antibiotics. So far E. coli is present along with Coag negative Staph and Gram positive kaylah. Previous culture from the abdominal wall showed Streptococcus anginosus and Actinomyces meyeri. Continue Vancomycin and Unasyn. After the IV antibiotics are completed, then proceed with Amoxicillin. Prealbumin is 7.6. Encourage nutritional supplementation with protein to help the healing process. HgbA1c is 7.8. Before any elective wound closure is done, the HgbA1c needs to be 8 or less. His wounds are complex and painful and he needs IV antibiotics. He will be evaluated for an ECF. I had a Peer to Peer discussion and the LTAC has been approved for a week and then will re-evaluate. I was concerned that he needs the higher level of acute care that is obtained at an LTAC due to the extensive nature of the wounds both anteriorly on the abdominal wall and posteriorly on his superior gluteal area and perianal area. Aggressive cleanliness in the gluteal and perianal wound is paramount because of the increased risk of stool contamination which may worsen the infection. With his history of diabetes mellitus, the worsening infection may become necrotizing in nature which may be life threatening as well as increased risk of amputation as well. Discussed with the patient the importance of keeping his gluteal/perianal wound clean after bowel movements by getting in the shower to cleanse the wound. If stool contamination is an issue, he would need a temporary diverting colostomy. At that time, the abdominal wall wound would need to be closed with a complex secondary wound closure prior to proceeding with a colostomy. Encouraged patient to stop smoking as it may have deleterious effects on wound healing. Will discharge patient to LTAC today. After discharge from the LTAC, can followup at the Wound Center.
--- NOTE | 2019-08-03 13:42 | TREXTCAR_ITS ---
- Diet 07/28/19 17:09 Diet: Carbohydrate Controlled Is pt able to select menu?: Yes - Routine Orders/Code Status Routine Lab Work: CBC - qweekly, - - CMP, ESR, CRP qweekly Code Status: Full Code - Wound(s) lower adbomen Wound Type: Open Surgical Wound Dressing Change: Dakins moistened gauze - twice a day CORRINA CLEFT Wound Type: WOUND Lt doran Wound Type: scratches PERINEUM/BUTTOCK Wound Type: Open Surgical Wound Dressing Change: Dakins moistened gauze - twice a day - Suggestions for Active Care Hours to sit in a chair: 4 - do pressure releases every 10 minutes for 10 seconds while sitting. Times a day to sit in chair: 4 - do pressure releases every 10 minutes for 10 seconds. - Therapies Weight Bearing: Full weight bearing Physical Therapy: Eval and Treat - for ambulation and strengthening. - Allergies/Procedures Done in Hospital Allergies/Adverse Reactions: Allergies sulfamethoxazole [From Bactrim] Allergy (Severe, Verified 07/28/19 09:55) BODY RASH trimethoprim [From Bactrim] Allergy (Severe, Verified 07/28/19 09:55) BODY RASH Procedures: PICC line placement, - - Surgery 07/29/19 - Surgical preparation bilateral superior gluteal/perianal area with excision necrotizing hidradenitis abscess (143 cm2). Surgery 07/19/19 - 1. Surgical preparation abdominal wall wi th excisional debridement skin and subcutaneous tissue and fascia necrotizing soft tissue hidradenitis infection (492 cm2). 2. Abdominal panniculectomy. - Type of Care/Length of Stay Estimated LOS: Convalescent Care Less Than 30 days Type of Care Needed: LTAC Rehab Potential: Good Prognosis: Good - Additional Orders/Day of Discharge Additional Orders: Continue Vancomycin and Unasyn IV. H&P will serve as current which was dated: 07/28/19 Day of Discharge: 08/03/19 - Dietary and Speech Recommendations Dietitian Recommendations/Changes: Rec cont 2000 calorie diet. Rec cont Hansel 1 packet BID to promote wound healing. - Follow Up Care Primary Care Physician: Miryam Jensen [Primary Care Provider] - Please Follow Up With: Rohit Luis MD - call [phone] for appt. When: After discharge from LTAC, may followup at Wound Center.
[2019-08-03 13:56] LABS: Bedside Glucose 127 mg/dL (70-110)
--- NOTE | 2019-08-03 14:00 | CASEMGMT ---
REDD JONES notified by Dr. Luis that after Peer to Peer with [employer] patient has been approved to go to [facility] at discharge. REDD JONES called Mary at [facility] and updated regarding approval. Discharge paperwork faxed to [facility]. REDD JONES updated community sports coordinator, who will arrange transport. REDD JONES updated patient and .
[2019-08-03] MEDS: HYDROmorphone 2 MG TABLET PO (14:36)
[2019-08-03] MEDS: Vancomycin IV 1,000 MG/200 ML BAG 200 MG IV (15:40)
[2019-08-03 15:45] VITALS: BP 96/54; PULSE 77; RESP 16; TEMP 36.8; O2SAT 93
[2019-08-03 16:50] LABS: Bedside Glucose 143 mg/dL (70-110)
--- NOTE | 2019-08-03 17:15 | NURSING ---
report called to Priscilla at [facility]. pt transported via ambulance.
--- NOTE | 2019-08-03 20:15 | PCM.DC.SUM ---
Discharge Date and Diagnosis Date of Admission: 07/28/19 Date of Discharge: 08/03/19 - Primary Discharge Diagnosis Hidradenitis abscess bilateral superior gluteal/perianal area. Sepsis, resolved. - Secondary Discharge Diagnosis Abdominal panniculus abdominal wall skin crease intertrigo Diabetes Smoker Hidradenitis Atelectasis Hospital Course and Treatment Imaging Results: Chest X-Ray 07/28/19 10:35 IMPRESSION: Mild increased linear markings at the left lung base suggestive of early atelectasis and/or scarring. 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 Yang, Dr. Ac, Dr. Longoria. Infectious Diseases - Dr. Villatoro. Operations: - - Surgery 07/29/19 - Surgical preparation bilateral superior gluteal/perianal area with excision necrotizing hidradenitis abscess (143 cm2). Procedures: PICC line placement Summary of Care Provided: ]Patient had surgery on 07/19/19 where he underwent surgical preparation abdominal wall with excisional debridement skin and subcutaneous tissue and fascia necrotizing soft tissue hidradenitis infection (492 cm2) and abdominal panniculectomy. He was discharged home on Doxycycline and on the VAC and had trouble with the pain. The VAC was removed and daily dressing changes with Dakin's was started. His operative culture showed Streptococcus anginosus and Actinomyces meyeri. The Doxycycline was stopped and he was started on Augmentin. He reported a temp of 102 earlier today on 07/28/19 and it was recommended to the patient to go to the ED for evaluation. He had noticed increased drainage from his left gluteal/perianal area. He was given IV hydration. ED labs showed a WBC of 14.1. The Lactate was 2.5. CXR showed some atelectasis. The abdominal wall wound appeared stable at this time. When he was turned over there was a flare up of hidradenitis in the left gluteal/perianal area with increasing purulent drainage and pain. He was started on IV Vancomycin and Zosyn and was admitted for IV antibiotics and aggressive wound in preparation for further operative intervention with incision and drainage and excisional debridement of her left gluteal/perianal hidradenitis. Will consult Hospitalist Group to assist with medical management. With two large wounds, he will be evaluated after surgery for a short stay at an ECF. If intermediate accountant IV antibiotics are needed, then a PICC line would be placed. Depending on the proximity of the subsequent wound in the perianal area to the anal opening and subsequent stool wound contamination will determine if General Surgery needs to evaluate this patient for a possible temporary diverting colostomy. Patient is aware of the possibility. The next day on 07/29/19 he was taken to surgery where he underwent surgical preparation bilateral superior gluteal/perianal area with excision necrotizing hidradenitis abscess (143 cm2). Postoperatively he underwent Dakin's dressing changes daily and after each bowel movement. By the end of the hospitalization, the dressing changes were twice a day. With the aggressive wound care, and IV antibiotic therapy, and aggressive surgical intervention, his sepsis resolved as the repeat Lactate was normal at 1.0. Blood cultures were negative. Wound cultures showed E. coli, Gram positive kaylah, and Coag negative Staph. Infectious Diseases was consulted and the antibiotics were changed to Vancomycin and Unasyn. A PICC line for detention IV antibiotics. Previous culture from the abdominal wall showed Streptococcus anginosus and Actinomyces meyeri. After the IV antibiotics are completed (Vancomycin and Unasyn), then will proceed with Amoxicillin. At the time of discharge, his WBC had decreased to 11.5 (from 14.1). Prealbumin is 7.6. Encourage nutritional supplementation with protein to help the healing process. HgbA1c is 7.8. Before any elective wound closure is done, the HgbA1c needs to be 8 or less. His wounds are complex and painful and he needs IV antibiotics. He will be evaluated for an ECF/LTAC. Discussed with the patient the importance of keeping his gluteal/perianal wound clean after bowel movements by getting in the shower to cleanse the wound. If stool contamination is an issue, he would need a temporary diverting colostomy. At that time, the abdominal wall wound would need to be closed with a complex secondary wound closure prior to proceeding with a colostomy. Encouraged patient to stop smoking as it may have deleterious effects on wound healing. For the Dakin's dressing changes, they were very painful and IV analgesia was needed initially and were limited to once per day. At the time of discharge, we were able to increase dressing changes to twice a day. Still needed IV analgesia but a little less. I had a Peer to Peer discussion and the LTAC has been approved for a week and then will re-evaluate. I was concerned that he needs the higher level of acute care that is obtained at an LTAC due to the extensive nature of the wounds both anteriorly on the abdominal wall and posteriorly on his superior gluteal area and perianal area. Aggressive cleanliness in the gluteal and perianal wound is paramount because of the increased risk of stool contamination which may worsen the infection. With his history of diabetes mellitus, the worsening infection may become necrotizing in nature which may be life threatening as well as increased risk of amputation as well. Discussed with the patient the importance of keeping his gluteal/perianal wound clean after bowel movements by getting in the shower to cleanse the wound. If stool contamination is an issue, he would need a temporary diverting colostomy. At that time, the abdominal wall wound would need to be closed with a complex secondary wound closure prior to proceeding with a colostomy. On the fifth postop day, the LTAC was approved and he was discharged in stable condition. After discharge from the LTAC, can followup at the Wound Center. - Physical Exam General: Alert, Oriented x3 HEENT: PERRLA, EOMI Oral: Moist Mucosa Neck: Supple Abdomen: Soft, Non-Distended Skin: Ulcer/ Wound - abdominal wall wound is stable with good granulation tissue. gluteal/perianal wound is stable. No active bleeding noted. No further evidence of infection at this time. Ray's dressing change was painful but tolerated reasonably well. Needed IV analgesia. Neurological: Cranial nerves II-XII grossly intact Psych/Mental Status: Normal Affect, Appropriate Vital Signs Temp Pulse Resp BP Pulse Ox 98.2 F 77 16 96/54 L 93 08/03/19 15:45 08/03/19 15:45 08/03/19 15:45 08/03/19 15:45 08/03/19 15:45 Oxygen Flow Rate (L/min) 2 Oxygen Delivery Method Room Air Weight: 231 lb 6.39 oz Body Mass Index (BMI) 36.2 Finger Stick Blood Glucose 154 Intake and Output for Last 24 Hours 08/01/19 08/02/19 08/03/19 23:59 23:59 23:59 Intake Total 2532.5 / 2532.5 652 / 652 1273.75 / 1273.75 Balance 2532.5 / 2532.5 652 / 652 1273.75 / 1273.75 Microbiology Past 72 Hours 07/29/19 14:00 Gram Stain - Final Tissue - Buttock Wound Culture - Final No growth aerobically. Anaerobic Culture - Preliminary Checking for anaerobes, further studies to follow. 07/28/19 10:55 Blood Culture - Final Blood Culture (Wb) - Anticubital Left No growth in 5 days. 07/28/19 11:03 Blood Culture - Final Blood Culture (Wb) - Anticubital Right No growth in 5 days. Laboratory Tests Past 24 Hrs 08/02/19 08/03/19 08/03/19 20:47 05:55 05:55 WBC 11.5 H RBC 4.09 L Hgb 12.4 L Hct 36.3 L MCV 88.8 MCH 30.3 MCHC 34.2 RDW Std Deviation 41.0 RDW Coeff of Cindi 12.7 Plt Count 360 MPV 8.8 Immature Gran % (Auto) 1.700 H Neut % (Auto) 62.6 Lymph % (Auto) 21.0 [place] % (Auto) 8.4 Eos % (Auto) 5.8 H Baso % (Auto) 0.5 Absolute Neuts (auto) 7.2 Absolute Lymphs (auto) 2.41 Nucleated RBC % 0 Sodium 140 Potassium 3.6 Chloride 107 Carbon Dioxide 29.0 Anion Gap 4 L BUN 14 Creatinine 0.92 Estim Creat Clear Calc 104.78 Est GFR (MDRD) Af Amer 120 Est GFR (MDRD) Non-Af 99 BUN/Creatinine Ratio 15.2 Glucose 172 H Calcium 8.5 Phosphorus 2.2 L Magnesium 2.1 Vancomycin Trough 8.7 POC Glucose 08/03/19 08/03/19 08/03/19 16:43 13:49 09:29 POC Glucose 143 H 127 H 78 08/03/19 08/02/19 06:18 22:39 POC Glucose 188 H 135 H Discharge Diet: Carb Control Diet, - - encourage nutritional supplementation with protein to help the healing process. Discharge Activity: May Shower - at the time of the dressing changes and after each bowel movement. May shower in (days): 1 - at the time of the dressing changes and after each bowel movement. May resume sexual activity in: 10-14 days Weight Bearing Status: Weight bearing as tolerated Additional Activity Instructions:: Daily dressing changes with Dakin's moistened Kerlix gauze. Call your doctor if your incision/area has: Continuous Slow Oozing, Sudden Increased Bleeding, Increased Pain/ Swelling, Increased Redness, Foul Smelling Discharge, Swelling at the incision site Call your doctor if you observe: Fever of 101 or Higher, Coldness, Increased Pain, Shortness of breath, Chest pain, Calf discomfort, Uncontrolled pain Change Dressing in (Days):: 1 - dressing changes with dakin's moistened Kerlix gauze daily and after each bowel movement. Cleanse incision/area with: Soap & Water - may cleanse the wounds with soap and water at the time of the Dakin's dressing changes and after each bowel movement. Home Medications: Medications to take at Discharge calcium carb 300 mg-D3 800 unit-mag ox 25 mg-copy writer 0.5 mg-[place]-Zn tablet 2 tab PO DAILY 06/10/19 famotidine 20 mg tablet 20 mg PO BID 06/10/19 omeprazole 20 mg capsule,delayed release 20 mg PO DAILY 06/10/19 Ergocalciferol [Vitamin D] 50,000 unit PO FR 07/12/19 Metformin HCl 500 mg PO QHS 07/12/19 proMETHazine tablet [Phenergan tablet] 25 mg PO 4X/DAY PRN PRN #30 tab 07/20/19 Docusate Sodium [Colace] 100 mg PO DAILY 07/28/19 Glimepiride 4 mg PO DAILY 07/28/19 Metformin HCl 850 mg PO DAILY 07/28/19 Ampicillin/Sulbactam [Unasyn] 3 gm IV Q8 vial 08/03/19 Ascorbic Acid [Vitamin C] 500 mg PO BIDCM tab 08/03/19 Enoxaparin [Lovenox] 40 mg SUBCUT DAILY@0600 syringe 08/03/19 Escitalopram Oxalate [Lexapro] 10 mg PO QHS tab 08/03/19 Fentanyl 1 patch TRANSDERMAL Q72H #5 ea 08/03/19 Glucagon 1 mg IM .X1 PRN syringe 08/03/19 HYDROmorphone Inj [Dilaudid Inj] 1 mg IV Q3H PRN PRN #30 syringe 08/03/19 HYDROmorphone tablet [Dilaudid] 2 - 4 mg PO Q3H PRN PRN #30 tab 08/03/19 Insulin Lispro [Humalog KwikPen] See Protocol SUBCUT ACHS insuln.pen 08/03/19 Lorazepam [Ativan] 1 mg IV Q6H PRN PRN #30 syringe 08/03/19 Multivitamins,Therapeutic [Multivitamin] 1 tab PO DAILYCM tab 08/03/19 Nutritional Supplement [Hansel - ORANGE FLAVOR] 1 packet PO BIDCM packet 08/03/19 Ondansetron [Zofran] 4 mg IV Q6H PRN PRN vial 08/03/19 Sodium Hypochlorite [Dakins Solution 0.25% (1/2 Strength)] 1 applic TOPICAL BID bottle 08/03/19 Vancomycin IV [Vancomycin] 1,000 mg IV Q12H bag 08/03/19 Zinc Sulfate (50mg elemental) [Zinc Sulfate] 220 mg PO DAILY cap 08/03/19 metFORMIN HCl [Glucophage] 500 mg PO BIDCM tab 08/03/19 Following Prescrptions Were Given to Patient: Lorazepam [Ativan] 1 mg IV Q6H PRN PRN #30 syringe PRN Reason: dressing changes Prescription Printed HYDROmorphone tablet [Dilaudid] 2 - 4 mg PO Q3H PRN PRN #30 tab PRN Reason: Severe Pain (6-10/10) Prescription Printed HYDROmorphone Inj [Dilaudid Inj] 1 mg IV Q3H PRN PRN #30 syringe PRN Reason: Severe Pain (6-10/10) Prescription Printed Fentanyl 1 patch TRANSDERMAL Q72H #5 ea Prescription Printed Primary Care Physician: Miryam Jnesen [Primary Care Provider] - Please Follow Up With: Rohit Luis MD - call [phone] for appt. When: After discharge from LTAC, may followup at Wound Center. Disposition: Intermediate Acute Care Minutes spent on discharge:: 40 Patient Condition:: Stable Medical Necessity - Tobacco Use Smoking Status: Former smoker Tobacco Use: Cigarettes Meaningful Use Info Meaningful Use Diagnoses (Choose all that apply): None applicable
== END 2019-08-03 17:35 | DRG 854 ==
LOC: ED 10:42 → MS3 15:24
PROVIDERS: Admitting Provider Surgery; Emergency Provider Emergency Medicine; Family Provider Internal Medicine; PCP Internal Medicine; Referring Provider Surgery; Visit Provider Internal Medicine
PROC: 0JB90ZZ Excision of Buttock Subcutaneous Tissue and Fascia, Open Approach (ICD-10-PCS; principal; 2019-07-29 11:35)
DX: A41.9 Sepsis, unspecified organism (principal); L02.31 Cutaneous abscess of buttock; J98.11 Atelectasis; L73.2 Hidradenitis suppurativa; R65.20 Severe sepsis without septic shock; F41.0 Panic disorder [episodic paroxysmal anxiety]; E66.01 Morbid (severe) obesity due to excess calories; E11.65 Type 2 diabetes mellitus with hyperglycemia; M79.89 Other specified soft tissue disorders; F17.210 Nicotine dependence, cigarettes, uncomplicated; L30.4 Erythema intertrigo; Z68.36 Body mass index [BMI] 36.0-36.9, adult; Z79.84 Long term (current) use of oral hypoglycemic drugs; B96.20 Unspecified Escherichia coli [E. coli] as the cause of diseases classified elsewhere
CPT/HCPCS: 36415; 36569; 71045; 80048; 80053; 80202; 81001; 82962; 83036; 83605; 83735; 84100; 84134; 84484; 85025; 85027; 85610; 85652; 85730; 86140; 87040; 87070; 87075; 87077; 87086; 87102; 87176; 87186; 87205; 87206; 88304; 88312; 93005; 99285; J7030; J7040; J7050; J7120; A4216; J0295; J2405

== ENCOUNTER 2019-09-05 11:15 | Outpatient (RCR) | payer OTHER, SELFPAY ==
[2019-08-09 01:15] VITALS: BP 159/83; PULSE 113; RESP 18; TEMP 36.4; BMI 35.2
[2019-08-15 14:00] VITALS: BP 115/70; PULSE 108; RESP 22; BMI 35.2
--- NOTE | 2019-08-15 15:16 | PN.PCM_ITS ---
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: Chronic Code(s): L98.492 - Non-pressure chronic ulcer of skin of other sites with fat layer exposed (2) Chronic ulcer of buttock Status: Chronic Code(s): L98.419 - Non-pressure chronic ulcer of buttock with unspecified severity (3) Abdominal panniculus Status: Chronic Code(s): E65 - Localized adiposity (4) Hidradenitis suppurativa Status: Chronic Code(s): L73.2 - Hidradenitis suppurativa Comment: abdominal wall skin crease bilateral inguinal/medial thighs (5) Diabetes Status: Chronic Code(s): E11.9 - Type 2 diabetes mellitus without complications (6) Smoker Status: Chronic Code(s): F17.200 - Nicotine dependence, unspecified, uncomplicated Type of Wound Date of Service: 08/15/19 Chief Complaint: Opened lower abdominal surgical wound History of Wound: On 07/19/19 had surgical preparation abdominal wall with excisional debridement skin and subcutaneous tissue and fascia necrotizing soft tissue hidradenitis infection and abdominal pannculectomy. He was discharged home with the wound VAC. Current abdominal wound care is VAC changes. On 07/29/19 he developed a temperature of 102, he went to the ED where it was discovered he was experiencing a flare of his geovani anal hidradenitis. He had a surgical preparation bilateral superior gluteal/perianal area with excision necrotizing hidradenitis abscess (143 cm2). Dakins moistened gauze twice daily and prn is the wound care. He was discharged to LTAC for one week for IV Vanc and pain control. Today he denies fever. States appetite is getting better as is pain control. Progress of Wound: Improved. - Physical Exam Vital Signs Temp Pulse Resp BP 97.5 F L 108 H 22 H 115/70 08/09/19 01:15 08/15/19 14:00 08/15/19 14:00 08/15/19 14:00 General: Alert, Oriented x3, Cooperative, No apparent distress, - HEENT: Atraumatic Oral: Moist Mucosa Lungs: Normal air movement Cardiovascular: Regular rate Abdomen: Soft Extremities: No edema, Capillary Refill Less than 3 Seconds Skin: Ulcer/ Wound - lower abdominal ulcer and superior gluteal/perianal ulcer Wound Measurements and Assessment WC - Nurse 1 - General Ulcer Measurement Start: 08/15/19 14:00 Freq: Status: Active Protocol: Activity Type Activity Date Activity User E-Sign Co-Sign Detail Recorded Client Recorded Date Recorded By Document 08/15/19 14:00 DL [id number] 08/15/19 14:18 DL 08/15/19 14:00 Wound Center Nurse 1 [Ulcer Assessment] #2 Sacral -Current Size (cm) - Length 11 -Current Size (cm) - Width 6 -Current Size (cm) - Depth 7.1 -Total Square Cm 66 -Photo Taken Yes -Exudate Amt Medium -Exudate Type Serosanguineous -Wound Margin Distinct, Outline Attached -Granulation Amt Large (67-100%) -Granulation Quality Red -Necrosis Amt None Present (0 %) -Structure Exposed N/A -Texture (Geovani-wound Skin Appearance) Scarring -Moisture (Geovani-wound Skin Appearance No Abnormality ) -Color (Geovani-wound Skin Appearance) No Abnormality -Temperature (Geovani-wound Skin No Abnormality Appearance) (Pt Warm) -Tenderness on Palpation (Geovani-wound No Skin Appearance) -Ulcer Cleansing Wound Cleanser -Foul Odor after Cleansing No -Anesthetic Used 4% Lidocaine Solution #1- ABDOMEN -Current Size (cm) - Length 5 -Current Size (cm) - Width 39 -Current Size (cm) - Depth 2.1 -Total Square Cm 195 -Photo Taken No -Exudate Amt Medium -Exudate Type Serosanguineous -Wound Margin Distinct, Outline Attached -Granulation Amt Large (67-100%) -Granulation Quality Red -Necrosis Amt None Present (0 %) -Structure Exposed N/A -Texture (Geovani-wound Skin Appearance) Scarring -Moisture (Geovani-wound Skin Appearance No Abnormality ) -Color (Geovani-wound Skin Appearance) No Abnormality -Temperature (Geovani-wound Skin No Abnormality Appearance) (Pt Warm) -Tenderness on Palpation (Geovani-wound No Skin Appearance) -Ulcer Cleansing Wound Cleanser -Foul Odor after Cleansing No -Anesthetic Used 4% Lidocaine Solution - Nurse 2 - General Ulcer CM Notes Start: 08/15/19 14:00 Freq: Status: Active Protocol: Activity Type Activity Date Activity User E-Sign Co-Sign Detail Recorded Client Recorded Date Recorded By Document 08/15/19 14:26 MW [id number] 08/15/19 14:37 MW 08/15/19 14:26 Wound Center Nurse 2 [Procedure/Treatment] #2 Sacral -Time 14:30 -Correct Patient Yes -Correct Side, Site, Position Yes -Correct Procedure Yes -Procedure Performed Yes -Type of Procedure Debridement -Clinical Debridement Subcutaneous -Post Debridement Size (cm) - Length 11.0 -Post Debridement Size (cm) - Width 4.0 -Post Debridement Size (cm) - Depth 6.3 -Total Square Cm 44.00 -Wound/Ulcer Outcome Not Healed -Ulcer Cleansing Rinsed/ Irrigated with Saline -Foul Odor after Cleansing No -Bioengineered Tissue No -Bleeding Controlled with Pressure -Offloading No -Treatment Response Procedure Tolerated Well #1- ABDOMEN -Time 14:27 -Correct Patient Yes -Correct Side, Site, Position Yes -Correct Procedure Yes -Procedure Performed Yes -Type of Procedure Debridement -Clinical Debridement Subcutaneous -Post Debridement Size (cm) - Length 5.5 -Post Debridement Size (cm) - Width 39.0 -Post Debridement Size (cm) - Depth 2.0 -Total Square Cm 214.50 -Wound/Ulcer Outcome Not Healed -Ulcer Cleansing Rinsed/ Irrigated with Saline -Foul Odor after Cleansing No -Bioengineered Tissue No -Bleeding Controlled with Pressure -Offloading No -Treatment Response Procedure Tolerated Well [See Physician Procedure note for Specifics] Pain Scale: 0-10 Numeric [Pain] -Is Patient Pain Free? Yes Musculoskeletal: No Tenderness to Palpation of Joints or Extremities Neurological: Neuro grossly intact Psych/Mental Status: Normal Affect, Appropriate Debridement Note Post-Debridement Measurements/Treatment WC - Nurse 2 - General Ulcer CM Notes Start: 08/15/19 14:00 Freq: Status: Active Protocol: Activity Type Activity Date Activity User E-Sign Co-Sign Detail Recorded Client Recorded Date Recorded By Document 08/15/19 14:26 MW [id number] 08/15/19 14:37 MW 08/15/19 14:26 Wound Center Nurse 2 #2 Sacral -Time 14:30 -Correct Patient Yes -Correct Side, Site, Position Yes -Correct Procedure Yes -Procedure Performed Yes -Type of Procedure Debridement -Clinical Debridement Subcutaneous -Post Debridement Size (cm) - Length 11.0 -Post Debridement Size (cm) - Width 4.0 -Post Debridement Size (cm) - Depth 6.3 -Total Square Cm 44.00 -Wound/Ulcer Outcome Not Healed -Ulcer Cleansing Rinsed/ Irrigated with Saline -Foul Odor after Cleansing No -Bioengineered Tissue No -Bleeding Controlled with Pressure -Offloading No -Treatment Response Procedure Tolerated Well #1- ABDOMEN -Time 14:27 -Correct Patient Yes -Correct Side, Site, Position Yes -Correct Procedure Yes -Procedure Performed Yes -Type of Procedure Debridement -Clinical Debridement Subcutaneous -Post Debridement Size (cm) - Length 5.5 -Post Debridement Size (cm) - Width 39.0 -Post Debridement Size (cm) - Depth 2.0 -Total Square Cm 214.50 -Wound/Ulcer Outcome Not Healed -Ulcer Cleansing Rinsed/ Irrigated with Saline -Foul Odor after Cleansing No -Bioengineered Tissue No -Bleeding Controlled with Pressure -Offloading No -Treatment Response Procedure Tolerated Well Pain Scale: 0-10 Numeric Is Patient Pain Free? Yes Wound debrided: abdominal ulcer Laterality: Not Applicable Type of Debridement: Excisional debridement Anesthesia Used: 4% Lidocaine Solution, 5% Lidocaine Gel Depth: Down to and including healthy tissue, in the subcutaneous layer Percentage of wound debrided: 100 Instrument Used: 7mm curette Tissue Removed: subcutaneous tissue and slough Severity: Fat Layer Exposed Amount of bleeding with debridement: Mild Bleeding Controlled with: Pressure, Compression and gauze Patient tolerated procedure well - Additional Wound Wound debrided: superior gluteal/perianal area Laterality: Not Applicable Type of Debridement: Excisional debridement Anesthesia Used: 4% Lidocaine Solution, 5% Lidocaine Gel Depth: Down to and including healthy tissue, in the subcutaneous layer Percentage of wound debrided: 100 Instrument Used: 7mm curette Tissue Removed: Subcutaneous tissue and slough Severity: Fat Layer Exposed Amount of bleeding with debridement: Mild Bleeding Controlled with: Pressure, Compression and gauze Patient tolerated procedure: Patient tolerated procedure well Assessment/Plan Assessment: 1. Abdominal panniculus. 2. Hidradenitis suppurativa. 3. Superior gluteal/perianal ulcer. 4. Intertrigo. 5. Diabetes. 6. Smoker Plan: Wound care to abdomen will continue the wound VAC at 150 mmHg. Wound care to the superior gluteal/perianal ulcer is Dakins solution moistened gauze twice daily. Wound cultures from 07/19 surgery positive for Step anginosus and Actin omyces meyeri and he was started on Augmentin. Wound culture from 07/29 postitive for Anaerobic cocci. He was started on Vanc and Zosyn while hospitalized and was transfered to LTAC after hospitalization. Patient is now home. Code Visit [id number]: [id number] Steff subq tissue 20 sq cm/< Add On Codes: 46687 Steff subq tissue add-on
[2019-08-22 11:57] VITALS: BP 132/66; PULSE 102; RESP 18; TEMP 36.6; BMI 35.2
--- NOTE | 2019-08-22 13:32 | PCM.WC.PN ---
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: Chronic Code(s): L98.492 - Non-pressure chronic ulcer of skin of other sites with fat layer exposed (2) Chronic ulcer of buttock Status: Chronic Code(s): L98.419 - Non-pressure chronic ulcer of buttock with unspecified severity (3) Abdominal panniculus Status: Chronic Code(s): E65 - Localized adiposity (4) Hidradenitis suppurativa Status: Chronic Code(s): L73.2 - Hidradenitis suppurativa Comment: abdominal wall skin crease bilateral inguinal/medial thighs (5) Diabetes Status: Chronic Code(s): E11.9 - Type 2 diabetes mellitus without complications (6) Smoker Status: Chronic Code(s): F17.200 - Nicotine dependence, unspecified, uncomplicated Type of Wound Date of Service: 08/22/19 Chief Complaint: Opened lower abdominal surgical wound History of Wound: On 07/19/19 had surgical preparation abdominal wall with excisional debridement skin and subcutaneous tissue and fascia necrotizing soft tissue hidradenitis infection and abdominal pannculectomy. He was discharged home with the wound VAC. Current abdominal wound care is VAC changes. On 07/29/19 he developed a temperature of 102, he went to the ED where it was discovered he was experiencing a flare of his geovani anal hidradenitis. He had a surgical preparation bilateral superior gluteal/perianal area with excision necrotizing hidradenitis abscess (143 cm2). Dakins moistened gauze twice daily and prn is the wound care. He was discharged to LT[facility] for one week for IV Vanc and pain control. Today he denies fever. States appetite is getting better as is pain control. Progress of Wound: Improved. - Physical Exam Vital Signs Temp Pulse Resp BP 98 F 102 H 18 132/66 H 08/22/19 11:57 08/22/19 11:57 08/22/19 11:57 08/22/19 11:57 General: Alert, Oriented x3, Cooperative HEENT: Atraumatic Oral: Moist Mucosa Lungs: Normal air movement Cardiovascular: Regular rate Abdomen: Soft Extremities: Capillary Refill Less than 3 Seconds Skin: Ulcer/ Wound - lower abdomen and buttocks ulcer Wound Measurements and Assessment WC - Nurse 1 - General Ulcer Measurement Start: 08/15/19 14:00 Freq: Status: Active Protocol: Activity Type Activity Date Activity User E-Sign Co-Sign Detail Recorded Client Recorded Date Recorded By Document 08/22/19 11:57 DL [id number] 08/22/19 12:09 DL 08/22/19 11:57 Wound Center Nurse 1 [Ulcer Assessment] #2 Sacral -Combined with other wound No -Current Size (cm) - Length 9.6 -Current Size (cm) - Width 6 -Current Size (cm) - Depth 6.1 -Total Square Cm 57.6 -Tunneling No -Undermining/Tunneling No -Circular Undermining No -Exudate Amt Medium -Exudate Type Serosanguineous -Wound Margin Flat & Intact -Granulation Amt Large (67-100%) -Granulation Quality [employer],Red -Slough/Fibrin Yes -Necrosis Amt Small (1-33%) -Necrotic Tissue Type Adherent Slough -Structure Exposed N/A -Texture (Geovani-wound Skin Appearance) Assessed -Moisture (Geovani-wound Skin Appearance Assessed ) -Color (Geovani-wound Skin Appearance) Assessed -Temperature (Geovani-wound Skin No Abnormality Appearance) (Pt Warm) -Tenderness on Palpation (Geovani-wound No Skin Appearance) -Ulcer Cleansing Wound Cleanser -Foul Odor after Cleansing No -Anesthetic Used 4% Lidocaine Solution #1- ABDOMEN -Combined with other wound No -Current Size (cm) - Length 34.5 -Current Size (cm) - Width 3 -Current Size (cm) - Depth 2.3 -Total Square Cm 103.5 -Photo Taken No -Tunneling No -Undermining/Tunneling No -Circular Undermining No -Exudate Amt Large -Exudate Type Serosanguineous -Wound Margin Thickened & Rolled Under -Granulation Amt Large (67-100%) -Granulation Quality Red -Necrosis Amt Small (1-33%) -Necrotic Tissue Type Adherent Slough -Structure Exposed N/A -Texture (Geovani-wound Skin Appearance) Assessed -Moisture (Geovani-wound Skin Appearance Assessed ) -Color (Geovani-wound Skin Appearance) Assessed -Temperature (Geovani-wound Skin No Abnormality Appearance) (Pt Warm) -Tenderness on Palpation (Geovani-wound No Skin Appearance) -Ulcer Cleansing Wound Cleanser -Foul Odor after Cleansing No -Anesthetic Used 4% Lidocaine Solution WC - Nurse 2 - General Ulcer CM Notes Start: 08/15/19 14:00 Freq: Status: Active Protocol: Activity Type Activity Date Activity User E-Sign Co-Sign Detail Recorded Client Recorded Date Recorded By Document 08/22/19 12:21 [id number] 08/22/19 12:29 08/22/19 12:21 Wound Center Nurse 2 [Procedure/Treatment] #2 Sacral -Time 12:24 -Correct Patient Yes -Correct Side, Site, Position Yes -Correct Procedure Yes -Procedure Performed Yes -Type of Procedure Debridement -Clinical Debridement Subcutaneous -Post Debridement Size (cm) - Length 10.3 -Post Debridement Size (cm) - Width 4.0 -Post Debridement Size (cm) - Depth 5.5 -Total Square Cm 41.20 -Wound/Ulcer Outcome Not Healed -Ulcer Cleansing Rinsed/ Irrigated with Saline -Foul Odor after Cleansing No -Bioengineered Tissue No -Bleeding Controlled with Pressure -Offloading No -Treatment Response Procedure Tolerated Well #1- ABDOMEN -Time 12:21 -Correct Patient Yes -Correct Side, Site, Position Yes -Correct Procedure Yes -Procedure Performed Yes -Type of Procedure Debridement -Clinical Debridement Subcutaneous -Post Debridement Size (cm) - Length 3.6 -Post Debridement Size (cm) - Width 35.5 -Post Debridement Size (cm) - Depth 2.8 -Total Square Cm 127.80 -Wound/Ulcer Outcome Not Healed -Ulcer Cleansing Rinsed/ Irrigated with Saline -Foul Odor after Cleansing No -Bioengineered Tissue No -Bleeding Controlled with Pressure -Offloading No -Treatment Response Procedure Tolerated Well [See Physician Procedure note for Specifics] Pain Scale: 0-10 Numeric [Pain] -Is Patient Pain Free? Yes Musculoskeletal: No Tenderness to Palpation of Joints or Extremities Neurological: Neuro grossly intact Psych/Mental Status: Normal Affect, Appropriate Debridement Note Post-Debridement Measurements/Treatment WC - Nurse 2 - General Ulcer CM Notes Start: 08/15/19 14:00 Freq: Status: Active Protocol: Activity Type Activity Date Activity User E-Sign Co-Sign Detail Recorded Client Recorded Date Recorded By Document 08/15/19 14:26 MW [id number] 08/15/19 14:37 MW Document 08/22/19 12:21 [id number] 08/22/19 12:29 08/15/19 08/22/19 14:26 12:21 Wound Center Nurse 2 #2 Sacral -Time 14:30 12:24 -Correct Patient Yes Yes -Correct Side, Site, Position Yes Yes -Correct Procedure Yes Yes -Procedure Performed Yes Yes -Type of Procedure Debridement Debridement -Clinical Debridement Subcutaneous Subcutaneous -Post Debridement Size (cm) - Length 11.0 10.3 -Post Debridement Size (cm) - Width 4.0 4.0 -Post Debridement Size (cm) - Depth 6.3 5.5 -Total Square Cm 44.00 41.20 -Wound/Ulcer Outcome Not Healed Not Healed -Ulcer Cleansing Rinsed/ Rinsed/ Irrigated with Irrigated with Saline Saline -Foul Odor after Cleansing No No -Bioengineered Tissue No No -Bleeding Controlled with Pressure Pressure -Offloading No No -Treatment Response Procedure Procedure Tolerated Well Tolerated Well #1- ABDOMEN -Time 14:27 12:21 -Correct Patient Yes Yes -Correct Side, Site, Position Yes Yes -Correct Procedure Yes Yes -Procedure Performed Yes Yes -Type of Procedure Debridement Debridement -Clinical Debridement Subcutaneous Subcutaneous -Post Debridement Size (cm) - Length 5.5 3.6 -Post Debridement Size (cm) - Width 39.0 35.5 -Post Debridement Size (cm) - Depth 2.0 2.8 -Total Square Cm 214.50 127.80 -Wound/Ulcer Outcome Not Healed Not Healed -Ulcer Cleansing Rinsed/ Rinsed/ Irrigated with Irrigated with Saline Saline -Foul Odor after Cleansing No No -Bioengineered Tissue No No -Bleeding Controlled with Pressure Pressure -Offloading No No -Treatment Response Procedure Procedure Tolerated Well Tolerated Well Pain Scale: 0-10 Numeric Is Patient Pain Free? Yes Yes Wound debrided: lower abdomen ulcer Laterality: Not Applicable Type of Debridement: Excisional debridement Anesthesia Used: 4% Lidocaine Solution, 5% Lidocaine Gel Depth: Down to and including healthy tissue, in the subcutaneous layer Percentage of wound debrided: 100 Instrument Used: 7mm curette Tissue Removed: subcutaneous tissue and slough Amount of bleeding with debridement: None Bleeding Controlled with: Pressure Patient tolerated procedure well - Additional Wound Wound debrided: buttock ulcer Laterality: Not Applicable Type of Debridement: Excisional debridement Anesthesia Used: 4% Lidocaine Solution, 5% Lidocaine Gel Depth: Down to and including healthy tissue, in the subcutaneous layer Percentage of wound debrided: 100 Instrument Used: 7mm curette Tissue Removed: subcutaneous tissue and slough Severity: Fat Layer Exposed Amount of bleeding with debridement: Moderate Bleeding Controlled with: Pressure, Compression and gauze Patient tolerated procedure: Patient tolerated procedure well Assessment/Plan Assessment: 1. Abdominal panniculus. 2. Hidradenitis suppurativa. 3. Superior gluteal/perianal ulcer. 4. Intertrigo. 5. Diabetes. 6. Smoker Plan: Wound care to abdomen will continue the wound VAC at 150 mmHg. Wound care to the superior gluteal/perianal ulcer is Dakins solution moistened gauze twice daily. Wound cultures from 07/19 surgery positive for Step anginosus and Actinomyces meyeri and he was started on Augmentin. Wound culture from 07/29 postitive for Anaerobic cocci. He was started on Vanc and Zosyn while hospitalized and was transfered to LTAC after hospitalization. Patient is now home. Pain is much better controlled. Neurotin in helping with the burning pain will increase to 3 times per day. Renewed Valium. He continues the Augmentin. Follow up in one week. Code Visit [id number]
[2019-08-29 12:08] VITALS: BP 120/63; PULSE 90; RESP 18; TEMP 36.6; BMI 35.2
--- NOTE | 2019-08-29 14:25 | PCM.WC.PN ---
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: Chronic Code(s): L98.492 - Non-pressure chronic ulcer of skin of other sites with fat layer exposed (2) Chronic ulcer of buttock Status: Chronic Code(s): L98.419 - Non-pressure chronic ulcer of buttock with unspecified severity (3) Abdominal panniculus Status: Chronic Code(s): E65 - Localized adiposity (4) Hidradenitis suppurativa Status: Chronic Code(s): L73.2 - Hidradenitis suppurativa Comment: abdominal wall skin crease bilateral inguinal/medial thighs (5) Diabetes Status: Chronic Code(s): E11.9 - Type 2 diabetes mellitus without complications (6) Smoker Status: Chronic Code(s): F17.200 - Nicotine dependence, unspecified, uncomplicated Type of Wound Date of Service: 08/29/19 Chief Complaint: Opened lower abdominal surgical wound History of Wound: On 07/19/19 had surgical preparation abdominal wall with excisional debridement skin and subcutaneous tissue and fascia necrotizing soft tissue hidradenitis infection and abdominal pannculectomy. He was discharged home with the wound VAC. Current abdominal wound care is VAC changes. On 07/29/19 he developed a temperature of 102, he went to the ED where it was discovered he was experiencing a flare of his geovani anal hidradenitis. He had a surgical preparation bilateral superior gluteal/perianal area with excision necrotizing hidradenitis abscess (143 cm2). Dakins moistened gauze twice daily and prn is the wound care. He was discharged to LTAC for one week for IV Vanc and pain control. Today he denies fever. States appetite is getting better as is pain control. Progress of Wound: Improved. - Physical Exam Vital Signs Temp Pulse Resp BP 97.8 F 90 18 120/63 08/29/19 12:08 08/29/19 12:08 08/29/19 12:08 08/29/19 12:08 General: Alert, Oriented x3, Cooperative HEENT: Atraumatic Oral: Moist Mucosa Lungs: Normal air movement Cardiovascular: Regular rate Extremities: No edema Skin: Ulcer/ Wound - lower abdomin and sacral ulcers Wound Measurements and Assessment WC - Nurse 1 - General Ulcer Measurement Start: 08/15/19 14:00 Freq: Status: Active Protocol: Activity Type Activity Date Activity User E-Sign Co-Sign Detail Recorded Client Recorded Date Recorded By Document 08/29/19 12:08 MW [id number] 08/29/19 12:29 MW 08/29/19 12:08 Wound Center Nurse 1 [Ulcer Assessment] #2 Sacral -Combined with other wound No -Current Size (cm) - Length 8.5 -Current Size (cm) - Width 4 -Current Size (cm) - Depth 4.3 -Total Square Cm 34.0 -Photo Taken No -Epithelialization Small 1-33% -Tunneling No -Undermining/Tunneling No -Circular Undermining No -Exudate Amt Large -Exudate Type Serosanguineous -Wound Margin Distinct, Outline Attached -Granulation Amt Large (67-100%) -Granulation Quality Red -Slough/Fibrin Yes -Necrosis Amt Small (1-33%) -Necrotic Tissue Type Adherent Slough -Texture (Geovani-wound Skin Appearance) Assessed, Scarring -Moisture (Geovani-wound Skin Appearance Assessed ) -Color (Geovani-wound Skin Appearance) Assessed -Temperature (Geovani-wound Skin No Abnormality Appearance) (Pt Warm) -Tenderness on Palpation (Geovani-wound Yes Skin Appearance) -Ulcer Cleansing soap and water -Foul Odor after Cleansing No -Anesthetic Used 4% Lidocaine Solution,5% Lidocaine Gel #1- ABDOMEN -Combined with other wound No -Current Size (cm) - Length 3 -Current Size (cm) - Width 35 -Current Size (cm) - Depth 1 -Total Square Cm 105 -Photo Taken No -Epithelialization Small 1-33% -Tunneling No -Undermining/Tunneling No -Circular Undermining No -Exudate Amt Small -Exudate Type Serosanguineous -Wound Margin Distinct, Outline Attached -Granulation Amt Large (67-100%) -Granulation Quality Red -Slough/Fibrin No -Necrosis Amt None Present (0 %) -Texture (Geovani-wound Skin Appearance) Assessed, Scarring -Moisture (Geovani-wound Skin Appearance Assessed ) -Color (Geovani-wound Skin Appearance) Assessed -Temperature (Geovani-wound Skin No Abnormality Appearance) (Pt Warm) -Tenderness on Palpation (Geovani-wound Yes Skin Appearance) -Ulcer Cleansing soap and water -Foul Odor after Cleansing No -Anesthetic Used 4% Lidocaine Solution WC - Nurse 2 - General Ulcer CM Notes Start: 08/15/19 14:00 Freq: Status: Active Protocol: Activity Type Activity Date Activity User E-Sign Co-Sign Detail Recorded Client Recorded Date Recorded By Document 08/29/19 13:03 [id number] 08/29/19 13:08 08/29/19 13:03 Wound Center Nurse 2 [Procedure/Treatment] #2 Sacral -Time 13:05 -Correct Patient Yes -Correct Side, Site, Position Yes -Correct Procedure Yes -Procedure Performed Yes -Type of Procedure Debridement -Clinical Debridement Subcutaneous -Post Debridement Size (cm) - Length 8.5 -Post Debridement Size (cm) - Width 3.5 -Post Debridement Size (cm) - Depth 4.0 -Total Square Cm 29.75 -Wound/Ulcer Outcome Not Healed -Ulcer Cleansing Rinsed/ Irrigated with Saline -Foul Odor after Cleansing No -Bioengineered Tissue No -Bleeding Controlled with Pressure -Offloading No -Treatment Response Procedure Tolerated Well #1- ABDOMEN -Time 13:04 -Correct Patient Yes -Correct Side, Site, Position Yes -Correct Procedure Yes -Procedure Performed Yes -Type of Procedure Debridement -Clinical Debridement Subcutaneous -Post Debridement Size (cm) - Length 3.3 -Post Debridement Size (cm) - Width 33.5 -Post Debridement Size (cm) - Depth 1.0 -Total Square Cm 110.55 -Wound/Ulcer Outcome Not Healed -Ulcer Cleansing Rinsed/ Irrigated with Saline -Foul Odor after Cleansing No -Bioengineered Tissue No -Bleeding Controlled with Pressure -Offloading No -Treatment Response Procedure Tolerated Well [See Physician Procedure note for Specifics] Pain Scale: 0-10 Numeric [Pain] -Is Patient Pain Free? Yes Musculoskeletal: No Tenderness to Palpation of Joints or Extremities Neurological: Neuro grossly intact Psych/Mental Status: Normal Affect, Appropriate Debridement Note Post-Debridement Measurements/Treatment WC - Nurse 2 - General Ulcer CM Notes Start: 08/15/19 14:00 Freq: Status: Active Protocol: Activity Type Activity Date Activity User E-Sign Co-Sign Detail Recorded Client Recorded Date Recorded By Document 08/15/19 14:26 MW [id number] 08/15/19 14:37 MW Document 08/22/19 12:21 JF [id number] 08/22/19 12:29 JF Document 08/29/19 13:03 [id number] 08/29/19 13:08 JF 08/15/19 08/22/19 08/29/19 14:26 12:21 13:03 Wound Center Nurse 2 #2 Sacral -Time 14:30 12:24 13:05 -Correct Patient Yes Yes Yes -Correct Side, Site, Position Yes Yes Yes -Correct Procedure Yes Yes Yes -Procedure Performed Yes Yes Yes -Type of Procedure Debridement Debridement Debridement -Clinical Debridement Subcutaneous Subcutaneous Subcutaneous -Post Debridement Size (cm) - Length 11.0 10.3 8.5 -Post Debridement Size (cm) - Width 4.0 4.0 3.5 -Post Debridement Size (cm) - Depth 6.3 5.5 4.0 -Total Square Cm 44.00 41.20 29.75 -Wound/Ulcer Outcome Not Healed Not Healed Not Healed -Ulcer Cleansing Rinsed/ Rinsed/ Rinsed/ Irrigated with Irrigated with Irrigated with Saline Saline Saline -Foul Odor after Cleansing No No No -Bioengineered Tissue No No No -Bleeding Controlled with Pressure Pressure Pressure -Offloading No No No -Treatment Response Procedure Procedure Procedure Tolerated Well Tolerated Well Tolerated Well #1- ABDOMEN -Time 14:27 12:21 13:04 -Correct Patient Yes Yes Yes -Correct Side, Site, Position Yes Yes Yes -Correct Procedure Yes Yes Yes -Procedure Performed Yes Yes Yes -Type of Procedure Debridement Debridement Debridement -Clinical Debridement Subcutaneous Subcutaneous Subcutaneous -Post Debridement Size (cm) - Length 5.5 3.6 3.3 -Post Debridement Size (cm) - Width 39.0 35.5 33.5 -Post Debridement Size (cm) - Depth 2.0 2.8 1.0 -Total Square Cm 214.50 127.80 110.55 -Wound/Ulcer Outcome Not Healed Not Healed Not Healed -Ulcer Cleansing Rinsed/ Rinsed/ Rinsed/ Irrigated with Irrigated with Irrigated with Saline Saline Saline -Foul Odor after Cleansing No No No -Bioengineered Tissue No No No -Bleeding Controlled with Pressure Pressure Pressure -Offloading No No No -Treatment Response Procedure Procedure Procedure Tolerated Well Tolerated Well Tolerated Well Pain Scale: 0-10 Numeric Is Patient Pain Free? Yes Yes Yes Wound debrided: lower abdominal ulcer Laterality: Not Applicable Type of Debridement: Excisional debridement Anesthesia Used: 4% Lidocaine Solution, 5% Lidocaine Gel Depth: Down to and including healthy tissue, in the subcutaneous layer Percentage of wound debrided: 100 Instrument Used: 7mm curette Tissue Removed: Subcutaneous tissue and slough Severity: Fat Layer Exposed Amount of bleeding with debridement: Mild Bleeding Controlled with: Pressure, Compression and gauze Patient tolerated procedure well - Additional Wound Wound debrided: sacral ulcer Laterality: Not Applicable Type of Debridement: Excisional debridement Anesthesia Used: 4% Lidocaine Solution, 5% Lidocaine Gel Depth: Down to and including healthy tissue, in the subcutaneous layer Percentage of wound debrided: 100 Instrument Used: 3mm curette, 7mm curette Tissue Removed: Subcutaneous tissue and slough Severity: Fat Layer Exposed Amount of bleeding with debridement: Mild Bleeding Controlled with: Pressure, Compression and gauze Patient tolerated procedure: Patient tolerated procedure well Assessment/Plan Assessment: 1. Abdominal panniculus. 2. Hidradenitis suppurativa. 3. Superior gluteal/perianal ulcer. 4. Intertrigo. 5. Diabetes. 6. Smoker Plan: Wound care to abdomen will continue the wound VAC at 150 mmHg. Wound care to the superior gluteal/perianal ulcer is Dakins solution moistened gauze twice daily. Wound cultures from 07/19 surgery positive for Step anginosus and Actinomyces meyeri and he was started on Augmentin. Wound culture from 07/29 postitive for Anaerobic cocci. He was started on Vanc and Zosyn while hospitalized and was transfered to LTAC after hospitalization. Patient is now home. Pain is much better controlled. Neurotin in helping with the burning pain will increase to 3 times per day. Renewed Valium. He continues the Augmentin. Follow up in one week.
[2019-09-05 11:35] VITALS: BP 137/68; PULSE 83; RESP 16; TEMP 36.2; BMI 35.2
--- NOTE | 2019-09-05 18:35 | PCM.WC.PN ---
Type of Wound Date of Service: 09/05/19 Chief Complaint: Nonhealing ulcers lower abdominal wall and bilateral superior gluteal/perianal areas. History of Wound: Surgery 07/29/19 - surgical preparation bilateral superior gluteal/perianal area with excision necrotizing hidradenitis abscess (143 cm2). Surgery 07/19/19 - surgical preparation abdominal wall with excisional debridement skin and subcutaneous tissue and fascia necrotizing soft tissue hidradenitis infection and abdominal pannculectomy. Wound Care - VAC to abdominal wall. Dakin's to bilateral superior gluteal/perianal area. Operative culture - Anaerobic cocci and preoperatively E coli, Coag negative Staph, and Gram positive kaylah. He was discharged on Augmentin. Culture from 07/19/19 surgery showed Streptococcus anginosus and Actinomyces meyeri. Prealbumin from 07/29/19 was 7.6. Encourage nutritional supplementation with protein to help the healing process. Today he denies fever. His appetite is better. Progress of Wound: Improved. - Physical Exam Vital Signs Temp Pulse Resp BP 97.1 F L 83 16 137/68 H 09/05/19 11:35 09/05/19 11:35 09/05/19 11:35 09/05/19 11:35 Wound Measurements and Assessment WC - Nurse 1 - General Ulcer Measurement Start: 08/15/19 14:00 Freq: Status: Active Protocol: Activity Type Activity Date Activity User E-Sign Co-Sign Detail Recorded Client Recorded Date Recorded By Document 09/05/19 11:35 MW [id number] 09/05/19 11:38 MW 09/05/19 11:35 Wound Center Nurse 1 [Ulcer Assessment] #2 Sacral -Combined with other wound No -Current Size (cm) - Length 8.3 -Current Size (cm) - Width 3.0 -Current Size (cm) - Depth 3.5 -Total Square Cm 24.90 -Photo Taken No -Epithelialization Medium 34-66% -Tunneling No -Undermining/Tunneling No -Circular Undermining No -Exudate Amt Medium -Exudate Type Serosanguineous -Wound Margin Distinct, Outline Attached -Granulation Amt Large (67-100%) -Granulation Quality Red -Slough/Fibrin Yes -Necrosis Amt Small (1-33%) -Necrotic Tissue Type Adherent Slough -Structure Exposed N/A -Texture (Kassandra-wound Skin Appearance) Assessed, Scarring -Moisture (Kassandra-wound Skin Appearance No Abnormality, ) Assessed -Color (Kassandra-wound Skin Appearance) No Abnormality, Assessed -Temperature (Kassandra-wound Skin No Abnormality Appearance) (Pt Warm) -Tenderness on Palpation (Kassandra-wound No Skin Appearance) -Ulcer Cleansing soap and water -Foul Odor after Cleansing No -Anesthetic Used 4% Lidocaine Solution,5% Lidocaine Gel #1- ABDOMEN -Combined with other wound No -Current Size (cm) - Length 2.0 -Current Size (cm) - Width 29.5 -Current Size (cm) - Depth 0.9 -Total Square Cm 59.00 -Photo Taken No -Epithelialization Medium 34-66% -Tunneling No -Undermining/Tunneling No -Circular Undermining No -Exudate Amt Large -Exudate Type Serosanguineous -Wound Margin Distinct, Outline Attached -Granulation Amt Large (67-100%) -Granulation Quality Red -Slough/Fibrin Yes -Necrosis Amt Small (1-33%) -Necrotic Tissue Type Adherent Slough -Structure Exposed N/A -Texture (Kassandra-wound Skin Appearance) Assessed, Scarring -Moisture (Kassandra-wound Skin Appearance No Abnormality, ) Assessed -Color (Kassandra-wound Skin Appearance) No Abnormality, Assessed -Temperature (Kassandra-wound Skin No Abnormality Appearance) (Pt Warm) -Tenderness on Palpation (Kassandra-wound No Skin Appearance) -Ulcer Cleansing soap and water -Foul Odor after Cleansing No -Anesthetic Used 4% Lidocaine Solution,5% Lidocaine Gel [Edema Assessment] -Lower Limb Edema Present No WC - Nurse 2 - General Ulcer CM Notes Start: 08/15/19 14:00 Freq: Status: Active Protocol: Activity Type Activity Date Activity User E-Sign Co-Sign Detail Recorded Client Recorded Date Recorded By Document 09/05/19 12:28 TONG [id number] 09/05/19 12:33 TONG 09/05/19 12:28 Wound Center Nurse 2 [Procedure/Treatment] #2 Sacral -Time 12:29 -Correct Patient Yes -Correct Side, Site, Position Yes -Correct Procedure Yes -Procedure Performed Yes -Type of Procedure Debridement -Clinical Debridement Subcutaneous -Post Debridement Size (cm) - Length 8.4 -Post Debridement Size (cm) - Width 3.1 -Post Debridement Size (cm) - Depth 3.5 -Total Square Cm 26.04 -Wound/Ulcer Outcome Not Healed -Ulcer Cleansing Rinsed/ Irrigated with Saline -Foul Odor after Cleansing No -Bioengineered Tissue No -Bleeding Controlled with Pressure -Offloading No -Treatment Response Procedure Tolerated Well #1- ABDOMEN -Time 12:28 -Correct Patient Yes -Correct Side, Site, Position Yes -Correct Procedure Yes -Procedure Performed Yes -Type of Procedure Debridement -Clinical Debridement Subcutaneous -Post Debridement Size (cm) - Length 2.1 -Post Debridement Size (cm) - Width 29.6 -Post Debridement Size (cm) - Depth 1 -Total Square Cm 62.16 -Wound/Ulcer Outcome Not Healed -Ulcer Cleansing Rinsed/ Irrigated with Saline -Foul Odor after Cleansing No -Bioengineered Tissue No -Bleeding Controlled with Pressure -Offloading No -Treatment Response Procedure Tolerated Well [See Physician Procedure note for Specifics] Pain Scale: 0-10 Numeric [Pain] -Is Patient Pain Free? Yes Debridement Note Post-Debridement Measurements/Treatment WC - Nurse 2 - General Ulcer CM Notes Start: 08/15/19 14:00 Freq: Status: Active Protocol: Activity Type Activity Date Activity User E-Sign Co-Sign Detail Recorded Client Recorded Date Recorded By Document 08/15/19 14:26 MW [id number] 08/15/19 14:37 Document 08/22/19 12:21 [id number] 08/22/19 12:29 Document 08/29/19 13:03 [id number] 08/29/19 13:08 Document 09/05/19 12:28 [id number] 09/05/19 12:33 08/15/19 08/22/19 08/29/19 14:26 12:21 13:03 Wound Center Nurse 2 #2 Sacral -Time 14:30 12:24 13:05 -Correct Patient Yes Yes Yes -Correct Side, Site, Position Yes Yes Yes -Correct Procedure Yes Yes Yes -Procedure Performed Yes Yes Yes -Type of Procedure Debridement Debridement Debridement -Clinical Debridement Subcutaneous Subcutaneous Subcutaneous -Post Debridement Size (cm) - Length 11.0 10.3 8.5 -Post Debridement Size (cm) - Width 4.0 4.0 3.5 -Post Debridement Size (cm) - Depth 6.3 5.5 4.0 -Total Square Cm 44.00 41.20 29.75 -Wound/Ulcer Outcome Not Healed Not Healed Not Healed -Ulcer Cleansing Rinsed/ Rinsed/ Rinsed/ Irrigated with Irrigated with Irrigated with Saline Saline Saline -Foul Odor after Cleansing No No No -Bioengineered Tissue No No No -Bleeding Controlled with Pressure Pressure Pressure -Offloading No No No -Treatment Response Procedure Procedure Procedure Tolerated Well Tolerated Well Tolerated Well #1- ABDOMEN -Time 14:27 12:21 13:04 -Correct Patient Yes Yes Yes -Correct Side, Site, Position Yes Yes Yes -Correct Procedure Yes Yes Yes -Procedure Performed Yes Yes Yes -Type of Procedure Debridement Debridement Debridement -Clinical Debridement Subcutaneous Subcutaneous Subcutaneous -Post Debridement Size (cm) - Length 5.5 3.6 3.3 -Post Debridement Size (cm) - Width 39.0 35.5 33.5 -Post Debridement Size (cm) - Depth 2.0 2.8 1.0 -Total Square Cm 214.50 127.80 110.55 -Wound/Ulcer Outcome Not Healed Not Healed Not Healed -Ulcer Cleansing Rinsed/ Rinsed/ Rinsed/ Irrigated with Irrigated with Irrigated with Saline Saline Saline -Foul Odor after Cleansing No No No -Bioengineered Tissue No No No -Bleeding Controlled with Pressure Pressure Pressure -Offloading No No No -Treatment Response Procedure Procedure Procedure Tolerated Well Tolerated Well Tolerated Well Pain Scale: 0-10 Numeric Is Patient Pain Free? Yes Yes Yes 09/05/19 12:28 Wound Center Nurse 2 #2 Sacral -Time 12:29 -Correct Patient Yes -Correct Side, Site, Position Yes -Correct Procedure Yes -Procedure Performed Yes -Type of Procedure Debridement -Clinical Debridement Subcutaneous -Post Debridement Size (cm) - Length 8.4 -Post Debridement Size (cm) - Width 3.1 -Post Debridement Size (cm) - Depth 3.5 -Total Square Cm 26.04 -Wound/Ulcer Outcome Not Healed -Ulcer Cleansing Rinsed/ Irrigated with Saline -Foul Odor after Cleansing No -Bioengineered Tissue No -Bleeding Controlled with Pressure -Offloading No -Treatment Response Procedure Tolerated Well #1- ABDOMEN -Time 12:28 -Correct Patient Yes -Correct Side, Site, Position Yes -Correct Procedure Yes -Procedure Performed Yes -Type of Procedure Debridement -Clinical Debridement Subcutaneous -Post Debridement Size (cm) - Length 2.1 -Post Debridement Size (cm) - Width 29.6 -Post Debridement Size (cm) - Depth 1 -Total Square Cm 62.16 -Wound/Ulcer Outcome Not Healed -Ulcer Cleansing Rinsed/ Irrigated with Saline -Foul Odor after Cleansing No -Bioengineered Tissue No -Bleeding Controlled with Pressure -Offloading No -Treatment Response Procedure Tolerated Well Pain Scale: 0-10 Numeric Is Patient Pain Free? Yes Wound debrided: #1 Lower abdominal wall. Laterality: Not Applicable Wound Grade/Stage: 2. Type of Debridement: Excisional debridement Anesthesia Used: 4% Lidocaine Solution Depth: Down to and including healthy tissue, in the subcutaneous layer Percentage of wound debrided: 100 Instrument Used: 7mm curette Tissue Removed: subcutaneous tissue. Severity: Fat Layer Exposed Amount of bleeding with debridement: Mild Bleeding Controlled with: Pressure Patient tolerated procedure well - Additional Wound Wound debrided: #2 Bilateral superior gluteal/perianal area. Laterality: Not Applicable Wound Grade/Stage: 2. Type of Debridement: Excisional debridement Anesthesia Used: 4% Lidocaine Solution Depth: Down to and including healthy tissue, in the subcutaneous layer Percentage of wound debrided: 100 Instrument Used: 7mm curette Tissue Removed: subcutaneous tissue. Severity: Fat Layer Exposed Amount of bleeding with debridement: Mild Bleeding Controlled with: Pressure Patient tolerated procedure: Patient tolerated procedure well Assessment/Plan Assessment: 1. Hidradenitis abscess bilateral superior gluteal/perianal area. 2. Hidradenitis. 3. Diabetes mellitus. 4. Smoker. 5. s/p surgery for surgical preparation abdominal wall with excisional debridement skin and subcutaneous tissue and fascia necrotizing soft tissue hidradenitis infection (492 cm2) and abdominal panniculectomy. 6. s/p surgical preparation bilateral superior gluteal/perianal area with excision necrotizing hidradenitis abscess (143 cm2). Plan: Continue the wound VAC at 150 mmHg. Continue Dakin's dressing changes to the superior gluteal/perianal ulcer. Wound culture from 07/29/19 showed Anaerobic cocci. Preop culture showed E. coli, Coag negative Staph, and Gram positive kaylah. Wound culture from 07/19/19 showed Streptococcus anginosus and Actinomyces meyeri. He is currently on Augmentin. Prealbumin from 07/29/19 was 7.6. Encourage nutritional supplementation with protein to help the healing process. Pain is much better controlled. Neurontin in helping with the burning pain. The Duragesic Patch is helpful. Renewed his Valium for spasm (30 tabs). He recently received scripts for Duragesic Patch, 12 mcg, (5 patches) on 08/30/19 and Dilaudid for pain (30 tabs) on 09/02/19.
== END 2019-09-08 23:59 ==
LOC: WC 11:15
PROVIDERS: Family Provider Internal Medicine; PCP Internal Medicine; Visit Provider Nurse Practitioner Family
DX: E11.622 Type 2 diabetes mellitus with other skin ulcer (principal); L73.2 Hidradenitis suppurativa; E65 Localized adiposity; F17.200 Nicotine dependence, unspecified, uncomplicated; L98.412 Non-pressure chronic ulcer of buttock with fat layer exposed; L30.4 Erythema intertrigo
CPT/HCPCS: 11042; 11045; 97606

== ENCOUNTER 2019-10-03 09:30 | Outpatient (RCR) | payer OTHER, SELFPAY ==
[2019-09-09 01:11] VITALS: BP 137/68; PULSE 83; RESP 16; TEMP 36.2
[2019-09-12 11:28] VITALS: BP 114/73; PULSE 95; RESP 22; TEMP 37; BMI 35.2
--- NOTE | 2019-09-12 13:41 | PN.PCM_ITS ---
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 Status: Chronic Current Visit: Yes Code(s): L98.492 - Non-pressure chronic ulcer of skin of other sites with fat layer exposed (3) Abdominal panniculus Status: Chronic Current Visit: Yes Code(s): E65 - Localized adiposity (4) Diabetes Status: Chronic Current Visit: Yes Code(s): E11.9 - Type 2 diabetes mellitus without complications (5) Smoker Status: Chronic Current Visit: Yes Code(s): F17.200 - Nicotine dependence, unspecified, uncomplicated (6) Hidradenitis suppurativa Status: Chronic Current Visit: Yes Code(s): L73.2 - Hidradenitis suppurativa Comment: abdominal wall skin crease bilateral inguinal/medial thighs Type of Wound Date of Service: 09/12/19 Chief Complaint: Nonhealing ulcers lower abdominal wall and bilateral superior gluteal/perianal areas. History of Wound: Surgery 07/29/19 - surgical preparation bilateral superior gluteal/perianal area with excision necrotizing hidradenitis abscess (143 cm2). Surgery 07/19/19 - surgical preparation abdominal wall with excisional debridement skin and subcutaneous tissue and fascia necrotizing soft tissue hidradenitis infection and abdominal pannculectomy. Wound Care - VAC to abdominal wall. Dakin's to bilateral superior gluteal/perianal area. Operative culture - Anaerobic cocci and preoperatively E coli, Coag negative Staph, and Gram positive kaylah. He was discharged on Augmentin. Culture from 07/19/19 surgery showed Streptococcus anginosus and Actinomyces meyeri. Prealbumin from 07/29/19 was 7.6. Encourage nutritional supplementation with protein to help the healing process. Today he denies fever. His appetite is better. Progress of Wound: Improved. - Physical Exam Vital Signs Temp Pulse Resp BP 98.6 F 95 22 H 114/73 09/12/19 11:28 09/12/19 11:28 09/12/19 11:28 09/12/19 11:28 General: Alert, Oriented x3, Cooperative HEENT: Atraumatic Oral: Moist Mucosa Lungs: Normal air movement Cardiovascular: Regular rate Abdomen: Soft Extremities: Capillary Refill Less than 3 Seconds Skin: Ulcer/ Wound - lower abdominal ulcer and sacral ulcer Wound Measurements and Assessment WC - Nurse 1 - General Ulcer Measurement Start: 09/12/19 11:27 Freq: Status: Active Protocol: Activity Type Activity Date Activity User E-Sign Co-Sign Detail Recorded Client Recorded Date Recorded By Document 09/12/19 11:28 DL [id number] 09/12/19 11:46 DL 09/12/19 11:28 Wound Center Nurse 1 [Ulcer Assessment] #2 Sacral -Current Size (cm) - Length 6.6 -Current Size (cm) - Width 3.5 -Current Size (cm) - Depth 3 -Total Square Cm 23.10 -Photo Taken No -Exudate Amt Medium -Exudate Type Serosanguineous -Wound Margin Distinct, Outline Attached -Granulation Amt Large (67-100%) -Granulation Quality Red -Necrosis Amt None Present (0 %) -Structure Exposed N/A -Texture (Kassandra-wound Skin Appearance) Scarring -Moisture (Kassandra-wound Skin Appearance No Abnormality ) -Color (Kassandra-wound Skin Appearance) No Abnormality -Temperature (Kassandra-wound Skin No Abnormality Appearance) (Pt Warm) -Tenderness on Palpation (Kassandra-wound No Skin Appearance) -Ulcer Cleansing Wound Cleanser -Foul Odor after Cleansing No -Anesthetic Used 4% Lidocaine Solution #1- ABDOMEN -Current Size (cm) - Length 24.8 -Current Size (cm) - Width 1.8 -Current Size (cm) - Depth 0.7 -Total Square Cm 44.64 -Photo Taken No -Exudate Amt Medium -Exudate Type Serosanguineous -Wound Margin Distinct, Outline Attached -Granulation Amt Large (67-100%) -Granulation Quality [place],Red -Necrosis Amt None Present (0 %) -Structure Exposed N/A -Texture (Kassandra-wound Skin Appearance) Scarring -Moisture (Kassandra-wound Skin Appearance No Abnormality ) -Color (Kassandra-wound Skin Appearance) No Abnormality -Temperature (Kassandra-wound Skin No Abnormality Appearance) (Pt Warm) -Tenderness on Palpation (Kassandra-wound No Skin Appearance) -Ulcer Cleansing Wound Cleanser -Foul Odor after Cleansing No -Anesthetic Used 4% Lidocaine Solution LISA - Nurse 2 - General Ulcer CM Notes Start: 09/12/19 11:27 Freq: Status: Active Protocol: Activity Type Activity Date Activity User E-Sign Co-Sign Detail Recorded Client Recorded Date Recorded By Document 09/12/19 11:55 TONG [id number] 09/12/19 12:04 09/12/19 11:55 Wound Center Nurse 2 [Procedure/Treatment] #2 Sacral -Time 11:56 -Correct Patient Yes -Correct Side, Site, Position Yes -Correct Procedure Yes -Procedure Performed Yes -Type of Procedure Debridement -Clinical Debridement Subcutaneous -Post Debridement Size (cm) - Length 6.5 -Post Debridement Size (cm) - Width 3.5 -Post Debridement Size (cm) - Depth 1.0 -Total Square Cm 22.75 -Wound/Ulcer Outcome Not Healed -Ulcer Cleansing Rinsed/ Irrigated with Saline -Foul Odor after Cleansing No -Bioengineered Tissue No -Bleeding Controlled with Pressure -Offloading No -Treatment Response Procedure Tolerated Well #1- ABDOMEN -Time 11:57 -Correct Patient Yes -Correct Side, Site, Position Yes -Correct Procedure Yes -Procedure Performed Yes -Type of Procedure Debridement -Clinical Debridement Subcutaneous -Post Debridement Size (cm) - Length 2.0 -Post Debridement Size (cm) - Width 25 -Post Debridement Size (cm) - Depth 0.8 -Total Square Cm 50.0 -Wound/Ulcer Outcome Not Healed -Ulcer Cleansing Rinsed/ Irrigated with Saline -Foul Odor after Cleansing No -Bioengineered Tissue No -Bleeding Controlled with Pressure -Offloading No -Treatment Response Procedure Tolerated Well [See Physician Procedure note for Specifics] Pain Scale: 0-10 Numeric [Pain] -Is Patient Pain Free? Yes Musculoskeletal: No Muscle Wasting Neurological: Neuro grossly intact Psych/Mental Status: Normal Affect, Appropriate Debridement Note Post-Debridement Measurements/Treatment WC - Nurse 2 - General Ulcer CM Notes Start: 09/12/19 11:27 Freq: Status: Active Protocol: Activity Type Activity Date Activity User E-Sign Co-Sign Detail Recorded Client Recorded Date Recorded By Document 09/12/19 11:55 TONG [id number] 09/12/19 12:04 09/12/19 11:55 Wound Center Nurse 2 #2 Sacral -Time 11:56 -Correct Patient Yes -Correct Side, Site, Position Yes -Correct Procedure Yes -Procedure Performed Yes -Type of Procedure Debridement -Clinical Debridement Subcutaneous -Post Debridement Size (cm) - Length 6.5 -Post Debridement Size (cm) - Width 3.5 -Post Debridement Size (cm) - Depth 1.0 -Total Square Cm 22.75 -Wound/Ulcer Outcome Not Healed -Ulcer Cleansing Rinsed/ Irrigated with Saline -Foul Odor after Cleansing No -Bioengineered Tissue No -Bleeding Controlled with Pressure -Offloading No -Treatment Response Procedure Tolerated Well #1- ABDOMEN -Time 11:57 -Correct Patient Yes -Correct Side, Site, Position Yes -Correct Procedure Yes -Procedure Performed Yes -Type of Procedure Debridement -Clinical Debridement Subcutaneous -Post Debridement Size (cm) - Length 2.0 -Post Debridement Size (cm) - Width 25 -Post Debridement Size (cm) - Depth 0.8 -Total Square Cm 50.0 -Wound/Ulcer Outcome Not Healed -Ulcer Cleansing Rinsed/ Irrigated with Saline -Foul Odor after Cleansing No -Bioengineered Tissue No -Bleeding Controlled with Pressure -Offloading No -Treatment Response Procedure Tolerated Well Pain Scale: 0-10 Numeric Is Patient Pain Free? Yes Wound debrided: lower abdominal ulcer Laterality: Not Applicable Type of Debridement: Excisional debridement Anesthesia Used: 5% Lidocaine Gel Depth: Down to and including healthy tissue, in the subcutaneous layer Percentage of wound debrided: 100 Instrument Used: 7mm curette Tissue Removed: Subcutaneous tissue and slough Severity: Fat Layer Exposed Amount of bleeding with debridement: Mild Bleeding Controlled with: Pressure, Compression and gauze Patient tolerated procedure well - Additional Wound Wound debrided: sacral/perianal ulcer Laterality: Not Applicable Type of Debridement: Excisional debridement Anesthesia Used: 5% Lidocaine Gel Depth: Down to and including healthy tissue, in the subcutaneous layer Percentage of wound debrided: 100 Instrument Used: 7mm curette Tissue Removed: Subcutaneous tissue and slough Severity: Fat Layer Exposed Amount of bleeding with debridement: Mild Bleeding Controlled with: Pressure, Compression and gauze Patient tolerated procedure: Patient tolerated procedure well Assessment/Plan Active Problems (Last Reviewed 07/29/19 @ 00:16 by Tyron Yang MD) Chronic ulcer of buttock (Chronic) Skin 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 Hidradenitis abscess bilateral superior gluteal/perianal area. 2. Hidradenitis. 3. Diabetes mellitus. 4. Smoker. 5. s/p surgery for surgical preparation abdominal wall with excisional debridement skin and subcutaneous tissue and fascia necrotizing soft tissue hidradenitis infection (492 cm2) and abdominal panniculectomy. 6. s/p surgical preparation bilateral superior gluteal/perianal area with excision necrotizing hidradenitis abscess (143 cm2). Plan: Will take a wound VAC holiday to abdominal ulcer. Continue Dakin's dressing changes to the superior gluteal/perianal ulcer and do Dakin's to the abdominal ulcer. Wound culture from 07/29/19 showed Anaerobic cocci. Preop culture showed E. coli, Coag negative Staph, and Gram positive kaylah. Wound culture from 07/19/19 showed Streptococcus anginosus and Actinomyces meyeri. He is currently on Augmentin. Prealbumin from 07/29/19 was 7.6. Encourage nutritional supplementation with protein to help the healing process. Neurontin in helping with the burning pain. He is having increased pain with the decrease in the Duragesic Patch. Instructed him that he needs to be weaned from his medications, we will not be going up on Duragesic patch. Renewed his Valium for spasm (20 tabs). Renewed Duragesic Patch, 12 mcg, (5 patches). Renewed Dilaudid for pain (30 tabs). [facility] report reviewed. He has a new spot of Hidradenitis on his left scrotum and flare on the right thigh. Placed him on Doxycycline to help with these flares. Follow up in one week. Code Visit [id number]: [id number] Steff subq tissue 20 sq cm/< Add On Codes: 23308 Steff subq tissue add-on - x3
[2019-09-19 13:24] VITALS: BP 122/69; PULSE 99; RESP 20; TEMP 36.8; BMI 35.2
--- NOTE | 2019-09-19 14:42 | PCM.WC.PN ---
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 Status: Chronic Current Visit: Yes Code(s): L98.492 - Non-pressure chronic ulcer of skin of other sites with fat layer exposed (3) Abdominal panniculus Status: Chronic Current Visit: Yes Code(s): E65 - Localized adiposity (4) Diabetes Status: Chronic Current Visit: Yes Code(s): E11.9 - Type 2 diabetes mellitus without complications (5) Smoker Status: Chronic Current Visit: Yes Code(s): F17.200 - Nicotine dependence, unspecified, uncomplicated (6) Hidradenitis suppurativa Status: Chronic Current Visit: Yes Code(s): L73.2 - Hidradenitis suppurativa Comment: abdominal wall skin crease bilateral inguinal/medial thighs Type of Wound Date of Service: 09/19/19 Chief Complaint: Nonhealing ulcers lower abdominal wall and bilateral superior gluteal/perianal areas. History of Wound: Surgery 07/29/19 - surgical preparation bilateral superior gluteal/perianal area with excision necrotizing hidradenitis abscess (143 cm2). Surgery 07/19/19 - surgical preparation abdominal wall with excisional debridement skin and subcutaneous tissue and fascia necrotizing soft tissue hidradenitis infection and abdominal pannculectomy. Wound Care - Discontinue the wound VAC after last weeks VAC holiday. Will apply Dakin's solution to bilateral superior gluteal/perianal area and abdomen. Operative culture - Anaerobic cocci and preoperatively E coli, Coag negative Staph, and Gram positive kaylah. He was discharged on Augmentin. Culture from 07/19/19 surgery showed Streptococcus anginosus and Actinomyces meyeri. Prealbumin from 07/29/19 was 7.6. Encourage nutritional supplementation with protein to help the healing process. Today he denies fever. His appetite is better. Progress of Wound: Improved. - Physical Exam Vital Signs Temp Pulse Resp BP 98.2 F 99 20 H 122/69 H 09/19/19 13:24 09/19/19 13:24 09/19/19 13:24 09/19/19 13:24 General: Alert, Oriented x3, Cooperative HEENT: Atraumatic Oral: Moist Mucosa Lungs: Normal air movement Cardiovascular: Regular rate Abdomen: Soft Extremities: Capillary Refill Less than 3 Seconds Skin: Ulcer/ Wound - lower abdomen ulcer and medial gluteal ulcer Wound Measurements and Assessment WC - Nurse 1 - General Ulcer Measurement Start: 09/12/19 11:27 Freq: Status: Active Protocol: Activity Type Activity Date Activity User E-Sign Co-Sign Detail Recorded Client Recorded Date Recorded By Document 09/19/19 13:24 DL [id number] 09/19/19 13:40 DL 09/19/19 13:24 Wound Center Nurse 1 [Ulcer Assessment] #2 Sacral -Current Size (cm) - Length 6.6 -Current Size (cm) - Width 3.1 -Current Size (cm) - Depth 0.4 -Total Square Cm 20.46 -Photo Taken No -Exudate Amt Medium -Exudate Type Serosanguineous -Wound Margin Distinct, Outline Attached -Granulation Amt Large (67-100%) -Granulation Quality Red -Necrosis Amt Small (1-33%) -Necrotic Tissue Type Adherent Slough -Structure Exposed N/A -Texture (Kassandra-wound Skin Appearance) Scarring -Moisture (Kassandra-wound Skin Appearance No Abnormality ) -Color (Kassandra-wound Skin Appearance) No Abnormality -Temperature (Kassandra-wound Skin No Abnormality Appearance) (Pt Warm) -Tenderness on Palpation (Kassandra-wound No Skin Appearance) -Ulcer Cleansing Wound Cleanser -Foul Odor after Cleansing No -Anesthetic Used 4% Lidocaine Solution #1- ABDOMEN -Current Size (cm) - Length 1.7 -Current Size (cm) - Width 18.4 -Current Size (cm) - Depth 0.1 -Total Square Cm 31.28 -Photo Taken No -Exudate Amt Small -Exudate Type Serosanguineous -Wound Margin Distinct, Outline Attached -Granulation Amt Large (67-100%) -Granulation Quality Red -Necrosis Amt Small (1-33%) -Necrotic Tissue Type Adherent Slough -Structure Exposed N/A -Texture (Kassandra-wound Skin Appearance) Scarring -Moisture (Kassandra-wound Skin Appearance No Abnormality ) -Color (Kassandra-wound Skin Appearance) No Abnormality -Temperature (Kassandra-wound Skin No Abnormality Appearance) (Pt Warm) -Tenderness on Palpation (Kassandra-wound No Skin Appearance) -Ulcer Cleansing Wound Cleanser -Foul Odor after Cleansing No -Anesthetic Used 4% Lidocaine Solution WC - Nurse 2 - General Ulcer CM Notes Start: 09/12/19 11:27 Freq: Status: Active Protocol: Activity Type Activity Date Activity User E-Sign Co-Sign Detail Recorded Client Recorded Date Recorded By Document 09/19/19 14:06 [id number] 09/19/19 14:14 09/19/19 14:06 Wound Center Nurse 2 [Procedure/Treatment] #2 Sacral -Time 14:06 -Correct Patient Yes -Correct Side, Site, Position Yes -Correct Procedure Yes -Procedure Performed Yes -Type of Procedure Debridement -Clinical Debridement Subcutaneous -Post Debridement Size (cm) - Length 6.2 -Post Debridement Size (cm) - Width 2.5 -Post Debridement Size (cm) - Depth 1.4 -Total Square Cm 15.50 -Wound/Ulcer Outcome Not Healed -Ulcer Cleansing Rinsed/ Irrigated with Saline -Foul Odor after Cleansing No -Bioengineered Tissue No -Bleeding Controlled with Pressure -Offloading No -Treatment Response Procedure Tolerated Well #1- ABDOMEN -Time 14:07 -Correct Patient Yes -Correct Side, Site, Position Yes -Correct Procedure Yes -Procedure Performed Yes -Type of Procedure Debridement -Clinical Debridement Subcutaneous -Post Debridement Size (cm) - Length 2.0 -Post Debridement Size (cm) - Width 17.4 -Post Debridement Size (cm) - Depth 0.5 -Total Square Cm 34.80 -Wound/Ulcer Outcome Not Healed -Ulcer Cleansing Rinsed/ Irrigated with Saline -Foul Odor after Cleansing No -Bioengineered Tissue No -Bleeding Controlled with Pressure -Offloading No -Treatment Response Procedure Tolerated Well [See Physician Procedure note for Specifics] Pain Scale: 0-10 Numeric [Pain] -Is Patient Pain Free? Yes Musculoskeletal: No Tenderness to Palpation of Joints or Extremities Neurological: Neuro grossly intact Psych/Mental Status: Normal Affect, Appropriate Debridement Note Post-Debridement Measurements/Treatment WC - Nurse 2 - General Ulcer CM Notes Start: 09/12/19 11:27 Freq: Status: Active Protocol: Activity Type Activity Date Activity User E-Sign Co-Sign Detail Recorded Client Recorded Date Recorded By Document 09/12/19 11:55 [id number] 09/12/19 12:04 Document 09/19/19 14:06 [id number] 09/19/19 14:14 09/12/19 09/19/19 11:55 14:06 Wound Center Nurse 2 #2 Sacral -Time 11:56 14:06 -Correct Patient Yes Yes -Correct Side, Site, Position Yes Yes -Correct Procedure Yes Yes -Procedure Performed Yes Yes -Type of Procedure Debridement Debridement -Clinical Debridement Subcutaneous Subcutaneous -Post Debridement Size (cm) - Length 6.5 6.2 -Post Debridement Size (cm) - Width 3.5 2.5 -Post Debridement Size (cm) - Depth 1.0 1.4 -Total Square Cm 22.75 15.50 -Wound/Ulcer Outcome Not Healed Not Healed -Ulcer Cleansing Rinsed/ Rinsed/ Irrigated with Irrigated with Saline Saline -Foul Odor after Cleansing No No -Bioengineered Tissue No No -Bleeding Controlled with Pressure Pressure -Offloading No No -Treatment Response Procedure Procedure Tolerated Well Tolerated Well #1- ABDOMEN -Time 11:57 14:07 -Correct Patient Yes Yes -Correct Side, Site, Position Yes Yes -Correct Procedure Yes Yes -Procedure Performed Yes Yes -Type of Procedure Debridement Debridement -Clinical Debridement Subcutaneous Subcutaneous -Post Debridement Size (cm) - Length 2.0 2.0 -Post Debridement Size (cm) - Width 25 17.4 -Post Debridement Size (cm) - Depth 0.8 0.5 -Total Square Cm 50.0 34.80 -Wound/Ulcer Outcome Not Healed Not Healed -Ulcer Cleansing Rinsed/ Rinsed/ Irrigated with Irrigated with Saline Saline -Foul Odor after Cleansing No No -Bioengineered Tissue No No -Bleeding Controlled with Pressure Pressure -Offloading No No -Treatment Response Procedure Procedure Tolerated Well Tolerated Well Pain Scale: 0-10 Numeric Is Patient Pain Free? Yes Yes Wound debrided: lower abdomen ulcer Type of Debridement: Excisional debridement Anesthesia Used: 5% Lidocaine Gel Depth: Down to and including healthy tissue, in the subcutaneous layer Percentage of wound debrided: 100 Instrument Used: 5mm curette Tissue Removed: subcutaneous tissue and slough Severity: Fat Layer Exposed Amount of bleeding with debridement: Moderate Bleeding Controlled with: Pressure, Compression and gauze Patient tolerated procedure well - Additional Wound Wound debrided: medial buttock/gluteal- perianal ulcer Type of Debridement: Excisional debridement Anesthesia Used: 5% Lidocaine Gel Depth: Down to and including healthy tissue, in the subcutaneous layer Percentage of wound debrided: 100 Instrument Used: 5mm curette Tissue Removed: subcutaneous tissue and slough Severity: Fat Layer Exposed Amount of bleeding with debridement: Mild Bleeding Controlled with: Pressure, Compression and gauze Patient tolerated procedure: Patient tolerated procedure well Assessment/Plan Active Problems (Last Reviewed 07/29/19 @ 00:16 by Tyron Yang MD) Chronic ulcer of buttock (Chronic) Skin 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 Hidradenitis abscess bilateral superior gluteal/perianal area. 2. Hidradenitis. 3. Diabetes mellitus. 4. Smoker. 5. s/p surgery for surgical preparation abdominal wall with excisional debridement skin and subcutaneous tissue and fascia necrotizing soft tissue hidradenitis infection (492 cm2) and abdominal panniculectomy. 6. s/p surgical preparation bilateral superior gluteal/perianal area with excision necrotizing hidradenitis abscess (143 cm2). Plan: Took a wound VAC holiday last week. Will discontinue the wound VAC to the lower abdominal incision and continue Dakin's dressing changes to the superior gluteal/perianal ulcer and the abdominal ulcer. Wound culture from 07/29/19 showed Anaerobic cocci. Preop culture showed E. coli, Coag negative Staph, and Gram positive kaylah. Wound culture from 07/19/19 showed Streptococcus anginosus and Actinomyces meyeri. He is currently on Augmentin. Prealbumin from 07/29/19 was 7.6. Encourage nutritional supplementation with protein to help the healing process. Neurontin is helping with the burning pain. He will finish up on the Duragesic patches this week and then he will only be on the Dilaudid. Had a extensive conversation with patient about weaning off the Duragesic patch and then weaning off the Dilaudid. He verbalized understanding. He states he stopped the Lexapro because he was experiencing side effects. Renewed Dilaudid for pain (30 tabs). OARRS report reviewed. He has a new spot of Hidradenitis on his left scrotum and flare on the right thigh. Placed him on Doxycycline to help with these flares. Follow up in one week. Code Visit 111xxx-113xx: [id number] Steff subq tissue 20 sq cm/< Add On Codes: [id number] Steff subq tissue add-on - x2
[2019-09-27 15:02] VITALS: BP 115/73; PULSE 90; RESP 18; TEMP 36.5; BMI 35.2
--- NOTE | 2019-09-27 16:44 | PCM.WC.PN ---
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: Chronic Code(s): L98.492 - Non-pressure chronic ulcer of skin of other sites with fat layer exposed (3) Abdominal panniculus Status: Chronic Code(s): E65 - Localized adiposity (4) Diabetes Status: Chronic Code(s): E11.9 - Type 2 diabetes mellitus without complications (5) Smoker Status: Chronic Code(s): F17.200 - Nicotine dependence, unspecified, uncomplicated (6) Hidradenitis suppurativa Status: Chronic Code(s): L73.2 - Hidradenitis suppurativa Comment: abdominal wall skin crease bilateral inguinal/medial thighs Type of Wound Date of Service: 09/27/19 Chief Complaint: Nonhealing ulcers lower abdominal wall and bilateral superior gluteal/perianal areas. History of Wound: Surgery 07/29/19 - surgical preparation bilateral superior gluteal/perianal area with excision necrotizing hidradenitis abscess (143 cm2). Surgery 07/19/19 - surgical preparation abdominal wall with excisional debridement skin and subcutaneous tissue and fascia necrotizing soft tissue hidradenitis infection and abdominal pannculectomy. Wound Care - Discontinue the wound VAC after a VAC holiday. Will apply Dakin's solution to bilateral superior gluteal/perianal area and abdomen. Operative culture - Anaerobic cocci and preoperatively E coli, Coag negative Staph, and Gram positive kaylah. He was discharged on Augmentin. Culture from 07/19/19 surgery showed Streptococcus anginosus and Actinomyces meyeri. Prealbumin from 07/29/19 was 7.6. Encourage nutritional supplementation with protein to help the healing process. Today he denies fever. His appetite is better. Progress of Wound: Improved. - Physical Exam Vital Signs Temp Pulse Resp BP 97.7 F L 90 18 115/73 09/27/19 15:02 09/27/19 15:02 09/27/19 15:02 09/27/19 15:02 General: Alert, Oriented x3, Cooperative HEENT: Atraumatic Oral: Moist Mucosa Lungs: Normal air movement Cardiovascular: Regular rate Extremities: No edema, Capillary Refill Less than 3 Seconds Skin: Ulcer/ Wound - lower abdominal ulcer and sacral ulcer Wound Measurements and Assessment WC - Nurse 1 - General Ulcer Measurement Start: 09/12/19 11:27 Freq: Status: Active Protocol: Activity Type Activity Date Activity User E-Sign Co-Sign Detail Recorded Client Recorded Date Recorded By Document 09/27/19 15:02 [email or web address] [id number] 09/27/19 15:13 DL 09/27/19 15:02 Wound Center Nurse 1 [Ulcer Assessment] #2 Sacral -Current Size (cm) - Length 4.7 -Current Size (cm) - Width 2.1 -Current Size (cm) - Depth 0.1 -Total Square Cm 9.87 -Photo Taken No -Exudate Amt Small -Exudate Type Serosanguineous -Wound Margin Distinct, Outline Attached -Granulation Amt Large (67-100%) -Granulation Quality Red -Necrosis Amt None Present (0 %) -Structure Exposed N/A -Texture (Kassandra-wound Skin Appearance) Scarring -Moisture (Kassandra-wound Skin Appearance No Abnormality ) -Color (Kassandra-wound Skin Appearance) No Abnormality -Temperature (Kassandra-wound Skin No Abnormality Appearance) (Pt Warm) -Tenderness on Palpation (Kassandra-wound No Skin Appearance) -Ulcer Cleansing Wound Cleanser -Foul Odor after Cleansing No -Anesthetic Used 4% Lidocaine Solution #1- ABDOMEN -Current Size (cm) - Length 1.1 -Current Size (cm) - Width 14 -Current Size (cm) - Depth 0.1 -Total Square Cm 15.4 -Photo Taken No -Exudate Amt Small -Exudate Type Serosanguineous -Wound Margin Distinct, Outline Attached -Granulation Amt Large (67-100%) -Granulation Quality Red -Necrosis Amt None Present (0 %) -Structure Exposed N/A -Texture (Kassandra-wound Skin Appearance) Scarring -Moisture (Kassandra-wound Skin Appearance No Abnormality ) -Color (Kassandra-wound Skin Appearance) No Abnormality -Temperature (Kassandra-wound Skin No Abnormality Appearance) (Pt Warm) -Tenderness on Palpation (Kassandra-wound No Skin Appearance) -Ulcer Cleansing Wound Cleanser -Foul Odor after Cleansing No -Anesthetic Used 4% Lidocaine Solution LISA - Nurse 2 - General Ulcer CM Notes Start: 09/12/19 11:27 Freq: Status: Active Protocol: Activity Type Activity Date Activity User E-Sign Co-Sign Detail Recorded Client Recorded Date Recorded By Document 09/27/19 15:33 [id number] 09/27/19 15:38 09/27/19 15:33 Wound Center Nurse 2 [Procedure/Treatment] #2 Sacral -Time 15:34 -Correct Patient Yes -Correct Side, Site, Position Yes -Correct Procedure Yes -Procedure Performed Yes -Type of Procedure Debridement -Clinical Debridement Subcutaneous -Post Debridement Size (cm) - Length 5.2 -Post Debridement Size (cm) - Width 2.3 -Post Debridement Size (cm) - Depth 1.2 -Total Square Cm 11.96 -Wound/Ulcer Outcome Not Healed -Ulcer Cleansing Rinsed/ Irrigated with Saline -Foul Odor after Cleansing No -Bioengineered Tissue No -Bleeding Controlled with Pressure -Offloading No -Treatment Response Procedure Tolerated Well #1- ABDOMEN -Time 15:33 -Correct Patient Yes -Correct Side, Site, Position Yes -Correct Procedure Yes -Procedure Performed Yes -Type of Procedure Debridement -Clinical Debridement Subcutaneous -Post Debridement Size (cm) - Length 1.5 -Post Debridement Size (cm) - Width 14.3 -Post Debridement Size (cm) - Depth 0.2 -Total Square Cm 21.45 -Wound/Ulcer Outcome Not Healed -Ulcer Cleansing Rinsed/ Irrigated with Saline -Foul Odor after Cleansing No -Bioengineered Tissue No -Bleeding Controlled with Pressure -Offloading No -Treatment Response Procedure Tolerated Well [See Physician Procedure note for Specifics] Pain Scale: 0-10 Numeric [Pain] -Is Patient Pain Free? Yes Musculoskeletal: No Tenderness to Palpation of Joints or Extremities Neurological: Neuro grossly intact Psych/Mental Status: Normal Affect, Appropriate Debridement Note Post-Debridement Measurements/Treatment WC - Nurse 2 - General Ulcer CM Notes Start: 09/12/19 11:27 Freq: Status: Active Protocol: Activity Type Activity Date Activity User E-Sign Co-Sign Detail Recorded Client Recorded Date Recorded By Document 09/12/19 11:55 [id number] 09/12/19 12:04 Document 09/19/19 14:06 [id number] 09/19/19 14:14 Document 09/27/19 15:33 [id number] 09/27/19 15:38 09/12/19 09/19/19 09/27/19 11:55 14:06 15:33 Wound Center Nurse 2 #2 Sacral -Time 11:56 14:06 15:34 -Correct Patient Yes Yes Yes -Correct Side, Site, Position Yes Yes Yes -Correct Procedure Yes Yes Yes -Procedure Performed Yes Yes Yes -Type of Procedure Debridement Debridement Debridement -Clinical Debridement Subcutaneous Subcutaneous Subcutaneous -Post Debridement Size (cm) - Length 6.5 6.2 5.2 -Post Debridement Size (cm) - Width 3.5 2.5 2.3 -Post Debridement Size (cm) - Depth 1.0 1.4 1.2 -Total Square Cm 22.75 15.50 11.96 -Wound/Ulcer Outcome Not Healed Not Healed Not Healed -Ulcer Cleansing Rinsed/ Rinsed/ Rinsed/ Irrigated with Irrigated with Irrigated with Saline Saline Saline -Foul Odor after Cleansing No No No -Bioengineered Tissue No No No -Bleeding Controlled with Pressure Pressure Pressure -Offloading No No No -Treatment Response Procedure Procedure Procedure Tolerated Well Tolerated Well Tolerated Well #1- ABDOMEN -Time 11:57 14:07 15:33 -Correct Patient Yes Yes Yes -Correct Side, Site, Position Yes Yes Yes -Correct Procedure Yes Yes Yes -Procedure Performed Yes Yes Yes -Type of Procedure Debridement Debridement Debridement -Clinical Debridement Subcutaneous Subcutaneous Subcutaneous -Post Debridement Size (cm) - Length 2.0 2.0 1.5 -Post Debridement Size (cm) - Width 25 17.4 14.3 -Post Debridement Size (cm) - Depth 0.8 0.5 0.2 -Total Square Cm 50.0 34.80 21.45 -Wound/Ulcer Outcome Not Healed Not Healed Not Healed -Ulcer Cleansing Rinsed/ Rinsed/ Rinsed/ Irrigated with Irrigated with Irrigated with Saline Saline Saline -Foul Odor after Cleansing No No No -Bioengineered Tissue No No No -Bleeding Controlled with Pressure Pressure Pressure -Offloading No No No -Treatment Response Procedure Procedure Procedure Tolerated Well Tolerated Well Tolerated Well Pain Scale: 0-10 Numeric Is Patient Pain Free? Yes Yes Yes Wound debrided: lower abdominal ulcer Type of Debridement: Excisional debridement Anesthesia Used: 5% Lidocaine Gel Depth: Down to and including healthy tissue, in the subcutaneous layer Percentage of wound debrided: 100 Instrument Used: 7mm curette Tissue Removed: Subcutaneous tissue and slough Severity: Fat Layer Exposed Amount of bleeding with debridement: Mild Bleeding Controlled with: Pressure, Compression and gauze Patient tolerated procedure well - Additional Wound Wound debrided: sacral/perianal ulcer Type of Debridement: Excisional debridement Anesthesia Used: 5% Lidocaine Gel Depth: Down to and including healthy tissue, in the subcutaneous layer Percentage of wound debrided: 100 Instrument Used: 5mm curette Tissue Removed: Subcutaneous tissue and slough Severity: Fat Layer Exposed Amount of bleeding with debridement: Mild Bleeding Controlled with: Pressure, Compression and gauze Patient tolerated procedure: Patient tolerated procedure well Assessment/Plan Assessment: 1. Hidradenitis abscess bilateral superior gluteal/perianal area. 2. Hidradenitis. 3. Diabetes mellitus. 4. Smoker. 5. s/p surgery for surgical preparation abdominal wall with excisional debridement skin and subcutaneous tissue and fascia necrotizing soft tissue hidradenitis infection (492 cm2) and abdominal panniculectomy. 6. s/p surgical preparation bilateral superior gluteal/perianal area with excision necrotizing hidradenitis abscess (143 cm2). Plan: Wound VAC to the lower abdominal incision was discontinued and Dakin's dressing changes to the superior gluteal/perianal ulcer and the abdominal ulcer. Wound culture from 07/29/19 showed Anaerobic cocci. Preop culture showed E. coli, Coag negative Staph, and Gram positive kaylah. Wound culture from 07/19/19 showed Streptococcus anginosus and Actinomyces meyeri. He is currently on Augmentin. Prealbumin from 07/29/19 was 7.6. Encourage nutritional supplementation with protein to help the healing process. Neurontin is helping with the burning pain. He finished up on the Duragesic patches a few days ago and was having some withdrawal symptoms but they are resolving, and now he will only be on the Dilaudid. Had a extensive conversation with patient about weaning off the Duragesic patch and then weaning off the Dilaudid. He verbalized understanding. He states he stopped the Lexapro because he was experiencing side effects. Renewed Dilaudid for pain (30 tabs). OARRS report reviewed. He has a new spot of Hidradenitis on his left scrotum and flare on the right thigh. Placed him on Doxycycline which helped with these flares. Follow up in one week. Code Visit 111xxx-113xx: [id number] Steff subq tissue 20 sq cm/< Add On Codes: [id number] Steff subq tissue add-on
[2019-10-03 09:45] VITALS: BP 125/69; PULSE 97; RESP 18; TEMP 37.3; BMI 35.2
[2019-10-03 12:13] LABS: Color, Urine Yellow (Yellow); Glucose, Dipstick 100 mg/dl (Normal); Ketone-Dipstick 5 mg/dl (Negative); Leukocyte Esterase-Dipstick Negative /ul (Negative); Nitrite-Dipstick Negative (Negative); Occult Blood-Urine Negative /ul (Negative); Protein-Dipstick Negative (Negative); Specific Gravity, Urine 1.025 (1.002-1.030); Urine Bilirubin Dipstick Negative (Negative); Urine Clarity Sl. Cloudy (Clear); Urine Urobilinogen Normal (Normal)
--- NOTE | 2019-10-03 14:07 | PN.PCM_ITS ---
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: Chronic Code(s): L98.492 - Non-pressure chronic ulcer of skin of other sites with fat layer exposed (3) Abdominal panniculus Status: Chronic Code(s): E65 - Localized adiposity (4) Diabetes Status: Chronic Code(s): E11.9 - Type 2 diabetes mellitus without complications (5) Smoker Status: Chronic Code(s): F17.200 - Nicotine dependence, unspecified, uncomplicated (6) Hidradenitis suppurativa Status: Chronic Code(s): L73.2 - Hidradenitis suppurativa Comment: abdominal wall skin crease bilateral inguinal/medial thighs Type of Wound Date of Service: 10/03/19 Chief Complaint: Nonhealing ulcers lower abdominal wall and bilateral superior gluteal/perianal areas. History of Wound: Surgery 07/29/19 - surgical preparation bilateral superior gluteal/perianal area with excision necrotizing hidradenitis abscess (143 cm2). Surgery 07/19/19 - surgical preparation abdominal wall with excisional debridement skin and subcutaneous tissue and fascia necrotizing soft tissue hidradenitis infection and abdominal pannculectomy. Wound Care - Discontinue the wound VAC after a VAC holiday. Will apply Dakin's solution to bilateral superior gluteal/perianal area and abdomen. Operative culture - Anaerobic cocci and preoperatively E coli, Coag negative Staph, and Gram positive kaylah. He was discharged on Augmentin. Culture from 07/19/19 surgery showed Streptococcus anginosus and Actinomyces meyeri. Prealbumin from 07/29/19 was 7.6. Encourage nutritional supplementation with protein to help the healing process. Today he denies fever. His appetite is better. Progress of Wound: Improved. - Physical Exam Vital Signs Temp Pulse Resp BP 99.1 F 97 18 125/69 H 10/03/19 09:45 10/03/19 09:45 10/03/19 09:45 10/03/19 09:45 General: Alert, Oriented x3, Cooperative HEENT: Atraumatic Oral: Moist Mucosa Lungs: Normal air movement Cardiovascular: Regular rate Abdomen: Soft Extremities: Capillary Refill Less than 3 Seconds, Peripheral Pulses Normal Skin: Ulcer/ Wound - lower abdominal ulcer with much improvement and sacral/perianal ulcer also improved Wound Measurements and Assessment WC - Nurse 1 - General Ulcer Measurement Start: 09/12/19 11:27 Freq: Status: Active Protocol: Activity Type Activity Date Activity User E-Sign Co-Sign Detail Recorded Client Recorded Date Recorded By Document 10/03/19 09:45 RB [id number] 10/03/19 09:58 RB 10/03/19 09:45 Wound Center Nurse 1 [Ulcer Assessment] #2 Sacral -Combined with other wound No -Current Size (cm) - Length 6 -Current Size (cm) - Width 2.5 -Current Size (cm) - Depth 1.1 -Total Square Cm 15.0 -Tunneling No -Undermining/Tunneling No -Circular Undermining No -Exudate Amt Medium -Exudate Type Serosanguineous -Wound Margin Thickened & Rolled Under -Granulation Amt Large (67-100%) -Granulation Quality [place] -Slough/Fibrin Yes -Necrosis Amt Small (1-33%) -Necrotic Tissue Type Adherent Slough -Structure Exposed N/A -Texture (Kassandra-wound Skin Appearance) Assessed, Scarring -Moisture (Kassandra-wound Skin Appearance Assessed ) -Color (Kassandra-wound Skin Appearance) Assessed -Temperature (Kassandra-wound Skin No Abnormality Appearance) (Pt Warm) -Tenderness on Palpation (Kassandra-wound No Skin Appearance) -Ulcer Cleansing Wound Cleanser -Foul Odor after Cleansing No -Anesthetic Used 4% Lidocaine Solution #1- ABDOMEN -Combined with other wound No -Current Size (cm) - Length 1 -Current Size (cm) - Width 13 -Current Size (cm) - Depth 0.1 -Total Square Cm 13 -Tunneling No -Undermining/Tunneling No -Circular Undermining No -Exudate Amt Small -Exudate Type Serosanguineous -Wound Margin Thickened & Rolled Under -Granulation Amt Medium (34-66%) -Granulation Quality [place] -Slough/Fibrin Yes -Necrosis Amt Small (1-33%) -Necrotic Tissue Type Adherent Slough -Structure Exposed N/A -Texture (Kassandra-wound Skin Appearance) Assessed, Scarring -Moisture (Kassandra-wound Skin Appearance Assessed ) -Color (Kassandra-wound Skin Appearance) Assessed -Temperature (Kassandra-wound Skin No Abnormality Appearance) (Pt Warm) -Tenderness on Palpation (Kassandra-wound No Skin Appearance) -Ulcer Cleansing Wound Cleanser -Foul Odor after Cleansing No -Anesthetic Used 4% Lidocaine Solution LISA - Nurse 2 - General Ulcer CM Notes Start: 09/12/19 11:27 Freq: Status: Active Protocol: Activity Type Activity Date Activity User E-Sign Co-Sign Detail Recorded Client Recorded Date Recorded By Document 10/03/19 10:26 TONG [id number] 10/03/19 10:37 10/03/19 10:26 Wound Center Nurse 2 [Procedure/Treatment] #2 Sacral -Time 10:31 -Correct Patient Yes -Correct Side, Site, Position Yes -Correct Procedure Yes -Procedure Performed Yes -Type of Procedure Debridement -Clinical Debridement Subcutaneous -Post Debridement Size (cm) - Length 5.0 -Post Debridement Size (cm) - Width 2.3 -Post Debridement Size (cm) - Depth 0.4 -Total Square Cm 11.50 -Wound/Ulcer Outcome Not Healed -Ulcer Cleansing Rinsed/ Irrigated with Saline -Foul Odor after Cleansing No -Bioengineered Tissue No -Bleeding Controlled with Pressure -Offloading No -Treatment Response Procedure Tolerated Well #1- ABDOMEN -Time 10:26 -Correct Patient Yes -Correct Side, Site, Position Yes -Correct Procedure Yes -Procedure Performed Yes -Type of Procedure Debridement -Clinical Debridement Subcutaneous -Post Debridement Size (cm) - Length 0.7 -Post Debridement Size (cm) - Width 13.7 -Post Debridement Size (cm) - Depth 0.1 -Total Square Cm 9.59 -Wound/Ulcer Outcome Not Healed -Ulcer Cleansing Rinsed/ Irrigated with Saline -Foul Odor after Cleansing No -Bleeding Controlled with Pressure -Offloading No -Treatment Response Procedure Tolerated Well [See Physician Procedure note for Specifics] Pain Scale: 0-10 Numeric [Pain] -Is Patient Pain Free? Yes Musculoskeletal: No Tenderness to Palpation of Joints or Extremities Neurological: Neuro grossly intact Psych/Mental Status: Normal Affect, Appropriate Debridement Note Post-Debridement Measurements/Treatment - Nurse 2 - General Ulcer CM Notes Start: 09/12/19 11:27 Freq: Status: Active Protocol: Activity Type Activity Date Activity User E-Sign Co-Sign Detail Recorded Client Recorded Date Recorded By Document 09/12/19 11:55 [id number] 09/12/19 12:04 Document 09/19/19 14:06 [id number] 09/19/19 14:14 Document 09/27/19 15:33 [id number] 09/27/19 15:38 Document 10/03/19 10:26 [id number] 10/03/19 10:37 09/12/19 09/19/19 09/27/19 11:55 14:06 15:33 Wound Center Nurse 2 #2 Sacral -Time 11:56 14:06 15:34 -Correct Patient Yes Yes Yes -Correct Side, Site, Position Yes Yes Yes -Correct Procedure Yes Yes Yes -Procedure Performed Yes Yes Yes -Type of Procedure Debridement Debridement Debridement -Clinical Debridement Subcutaneous Subcutaneous Subcutaneous -Post Debridement Size (cm) - Length 6.5 6.2 5.2 -Post Debridement Size (cm) - Width 3.5 2.5 2.3 -Post Debridement Size (cm) - Depth 1.0 1.4 1.2 -Total Square Cm 22.75 15.50 11.96 -Wound/Ulcer Outcome Not Healed Not Healed Not Healed -Ulcer Cleansing Rinsed/ Rinsed/ Rinsed/ Irrigated with Irrigated with Irrigated with Saline Saline Saline -Foul Odor after Cleansing No No No -Bioengineered Tissue No No No -Bleeding Controlled with Pressure Pressure Pressure -Offloading No No No -Treatment Response Procedure Procedure Procedure Tolerated Well Tolerated Well Tolerated Well #1- ABDOMEN -Time 11:57 14:07 15:33 -Correct Patient Yes Yes Yes -Correct Side, Site, Position Yes Yes Yes -Correct Procedure Yes Yes Yes -Procedure Performed Yes Yes Yes -Type of Procedure Debridement Debridement Debridement -Clinical Debridement Subcutaneous Subcutaneous Subcutaneous -Post Debridement Size (cm) - Length 2.0 2.0 1.5 -Post Debridement Size (cm) - Width 25 17.4 14.3 -Post Debridement Size (cm) - Depth 0.8 0.5 0.2 -Total Square Cm 50.0 34.80 21.45 -Wound/Ulcer Outcome Not Healed Not Healed Not Healed -Ulcer Cleansing Rinsed/ Rinsed/ Rinsed/ Irrigated with Irrigated with Irrigated with Saline Saline Saline -Foul Odor after Cleansing No No No -Bioengineered Tissue No No No -Bleeding Controlled with Pressure Pressure Pressure -Offloading No No No -Treatment Response Procedure Procedure Procedure Tolerated Well Tolerated Well Tolerated Well Pain Scale: 0-10 Numeric Is Patient Pain Free? Yes Yes Yes 10/03/19 10:26 Wound Center Nurse 2 #2 Sacral -Time 10:31 -Correct Patient Yes -Correct Side, Site, Position Yes -Correct Procedure Yes -Procedure Performed Yes -Type of Procedure Debridement -Clinical Debridement Subcutaneous -Post Debridement Size (cm) - Length 5.0 -Post Debridement Size (cm) - Width 2.3 -Post Debridement Size (cm) - Depth 0.4 -Total Square Cm 11.50 -Wound/Ulcer Outcome Not Healed -Ulcer Cleansing Rinsed/ Irrigated with Saline -Foul Odor after Cleansing No -Bioengineered Tissue No -Bleeding Controlled with Pressure -Offloading No -Treatment Response Procedure Tolerated Well #1- ABDOMEN -Time 10:26 -Correct Patient Yes -Correct Side, Site, Position Yes -Correct Procedure Yes -Procedure Performed Yes -Type of Procedure Debridement -Clinical Debridement Subcutaneous -Post Debridement Size (cm) - Length 0.7 -Post Debridement Size (cm) - Width 13.7 -Post Debridement Size (cm) - Depth 0.1 -Total Square Cm 9.59 -Wound/Ulcer Outcome Not Healed -Ulcer Cleansing Rinsed/ Irrigated with Saline -Foul Odor after Cleansing No -Bioengineered Tissue -Bleeding Controlled with Pressure -Offloading No -Treatment Response Procedure Tolerated Well Pain Scale: 0-10 Numeric Is Patient Pain Free? Yes Wound debrided: lower abdominal ulcer Type of Debridement: Excisional debridement Anesthesia Used: 5% Lidocaine Gel Depth: Down to and including healthy tissue, in the subcutaneous layer Percentage of wound debrided: 100 Instrument Used: 7mm curette Tissue Removed: subcutaneous tissue and slough Severity: Fat Layer Exposed Amount of bleeding with debridement: Mild Bleeding Controlled with: Pressure Patient tolerated procedure well - Additional Wound Wound debrided: sacral/perianal ulcer Type of Debridement: Excisional debridement Anesthesia Used: 5% Lidocaine Gel Depth: Down to and including healthy tissue, in the subcutaneous layer Percentage of wound debrided: 100 Instrument Used: 5mm curette Tissue Removed: subcutaneous tissue and slough Severity: Fat Layer Exposed Amount of bleeding with debridement: Mild Bleeding Controlled with: Pressure Patient tolerated procedure: Patient tolerated procedure well Assessment/Plan Assessment: 1. Hidradenitis abscess bilateral superior gluteal/perianal area. 2. Hidradenitis. 3. Diabetes mellitus. 4. Smoker. 5. s/p surgery for surgical preparation abdominal wall with excisional debridement skin and subcutaneous tissue and fascia necrotizing soft tissue hidradenitis infection (492 cm2) and abdominal panniculectomy. 6. s/p surgical preparation bilateral superior gluteal/perianal area with excision necrotizing hidradenitis abscess (143 cm2). Plan: Wound VAC to the lower abdominal incision was discontinued and Dakin's dressing changes to the superior gluteal/perianal ulcer and the abdominal ulcer. Wound culture from 07/29/19 showed Anaerobic cocci. Preop culture showed E. coli, Coag negative Staph, and Gram positive kaylah. Wound culture from 07/19/19 showed Streptococcus anginosus and Actinomyces meyeri. He is currently on Augmentin. Prealbumin from 07/29/19 was 7.6. Encourage nutritional supplementation with protein to help the healing process. Neurontin is helping with the burning pain. Had a extensive conversation with patient about weaning off the Duragesic patch and then weaning off the Dilaudid. He verbalized understanding. He states he stopped the Lexapro because he was experiencing side effects. Percocet (40). OARRS reviewed. Valium (14). OARRS report reviewed. He has a new spot of Hidradenitis on his left scrotum and flare on the right thigh. Placed him on Doxycycline which helped with these flares. Today he complains of bladder pressure with urinary frequency. Ordered a UA. Follow up in one week. Code Visit 111xxx-113xx: [id number] Steff subq tissue 20 sq cm/< Add On Codes: 08824 Steff subq tissue add-on
== END 2019-10-08 23:59 ==
LOC: WC 09:30
PROVIDERS: Family Provider Internal Medicine; PCP Internal Medicine; Referring Provider Nurse Practitioner Family; Visit Provider Nurse Practitioner Family
DX: E11.622 Type 2 diabetes mellitus with other skin ulcer (principal); L73.2 Hidradenitis suppurativa; L98.412 Non-pressure chronic ulcer of buttock with fat layer exposed; F17.200 Nicotine dependence, unspecified, uncomplicated; L98.492 Non-pressure chronic ulcer of skin of other sites with fat layer exposed; E65 Localized adiposity; R35.0 Frequency of micturition
CPT/HCPCS: 11042; 11045; 36415; 81002; 87086

== ENCOUNTER 2019-10-04 15:55 | Outpatient (RCR) | payer OTHER, SELFPAY ==
[2019-10-03 09:45] VITALS: BMI 35.2
[2019-10-04 16:58] LABS: Color, Urine Yellow (Yellow); Glucose, Dipstick Normal (Normal); Ketone-Dipstick 15 mg/dl (Negative); Leukocyte Esterase-Dipstick 25 /ul (Negative); Nitrite-Dipstick Negative (Negative); Occult Blood-Urine Negative /ul (Negative); Protein-Dipstick 15 mg/dl (Negative); Urine Bilirubin Dipstick Negative (Negative); Urine Clarity Sl. Cloudy (Clear); Urine Urobilinogen 1 mg/dl (Normal)
== END 2019-10-04 18:00 | disposition home or self-care (01) ==
LOC: HHLAB 15:55
PROVIDERS: Family Provider Internal Medicine; PCP Internal Medicine; Referring Provider Surgery; Visit Provider Surgery
DX: L73.2 Hidradenitis suppurativa (principal); L02.211 Cutaneous abscess of abdominal wall; L02.31 Cutaneous abscess of buttock
CPT/HCPCS: 81002; 87086

== ENCOUNTER 2019-11-07 11:15 | Outpatient (RCR) | payer OTHER, SELFPAY ==
[2019-10-09 00:53] VITALS: BP 125/69; PULSE 97; RESP 18; TEMP 37.3
[2019-10-10 11:13] VITALS: BP 158/74; PULSE 88; RESP 16; TEMP 37; BMI 35.2
--- NOTE | 2019-10-10 13:42 | PN.PCM_ITS ---
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 Status: Chronic Current Visit: Yes Code(s): L98.492 - Non-pressure chronic ulcer of skin of other sites with fat layer exposed (3) Hidradenitis suppurativa Status: Chronic Current Visit: Yes Code(s): L73.2 - Hidradenitis suppurativa Comment: abdominal wall skin crease bilateral inguinal/medial thighs (4) Diabetes Status: Chronic Current Visit: Yes Code(s): E11.9 - Type 2 diabetes mellitus without complications (5) Smoker Status: Chronic Current Visit: Yes Code(s): F17.200 - Nicotine dependence, unspecified, uncomplicated Type of Wound Date of Service: 10/10/19 Chief Complaint: Nonhealing ulcers lower abdominal wall and bilateral superior gluteal/perianal areas. History of Wound: Surgery 07/29/19 - surgical preparation bilateral superior gluteal/perianal area with excision necrotizing hidradenitis abscess (143 cm2). Surgery 07/19/19 - surgical preparation abdominal wall with excisional debridement skin and subcutaneous tissue and fascia necrotizing soft tissue hidradenitis infection and abdominal pannculectomy. Wound Care - Will stop Dakin's solution to bilateral superior gluteal/perianal area start Laurel. Apply collagen hydrogel to the lower abdomen. Operative culture - Anaerobic cocci and preoperatively E coli, Coag negative Staph, and Gram positive kaylah. He was discharged on Augmentin. Culture from 07/19/19 surgery showed Streptococcus anginosus and Actinomyces meyeri. Prealbumin from 07/29/19 was 7.6. Encourage nutritional supplementation with protein to help the healing process. Today he denies fever. His appetite is better. Progress of Wound: Improved. - Physical Exam Vital Signs Temp Pulse Resp BP 98.6 F 88 16 158/74 H 10/10/19 11:13 10/10/19 11:13 10/10/19 11:13 10/10/19 11:13 General: Alert, Oriented x3, Cooperative HEENT: Atraumatic Oral: Moist Mucosa Lungs: Normal air movement Cardiovascular: Regular rate Abdomen: Soft Extremities: No edema Skin: Ulcer/ Wound - Lower abdomen and sacral/perianal area Wound Measurements and Assessment WC - Nurse 1 - General Ulcer Measurement Start: 10/10/19 11:13 Freq: Status: Active Protocol: Activity Type Activity Date Activity User E-Sign Co-Sign Detail Recorded Client Recorded Date Recorded By Document 10/10/19 11:13 [facility] [id number] 10/10/19 11:21 [facility] 10/10/19 11:13 Wound Center Nurse 1 [Ulcer Assessment] #2 Sacral -Combined with other wound No -Current Size (cm) - Length 4 -Current Size (cm) - Width 1 -Current Size (cm) - Depth 0.1 -Total Square Cm 4 -Photo Taken No -Epithelialization Small 1-33% -Tunneling No -Undermining/Tunneling No -Circular Undermining No -Exudate Amt Small -Exudate Type Serosanguineous -Wound Margin Distinct, Outline Attached -Granulation Amt Large (67-100%) -Granulation Quality [place] -Slough/Fibrin No -Necrosis Amt None Present (0 %) -Texture (Kassandra-wound Skin Appearance) Assessed, Scarring -Moisture (Kassandra-wound Skin Appearance Assessed ) -Color (Kassandra-wound Skin Appearance) Assessed -Temperature (Kassandra-wound Skin No Abnormality Appearance) (Pt Warm) -Tenderness on Palpation (Kassandra-wound No Skin Appearance) -Ulcer Cleansing Rinsed/ Irrigated with Saline -Foul Odor after Cleansing No -Anesthetic Used 4% Lidocaine Solution #1- ABDOMEN -Combined with other wound No -Current Size (cm) - Length 0.8 -Current Size (cm) - Width 8.8 -Current Size (cm) - Depth 0.1 -Total Square Cm 7.04 -Photo Taken No -Epithelialization Medium 34-66% -Tunneling No -Undermining/Tunneling No -Circular Undermining No -Exudate Amt Small -Exudate Type Serosanguineous -Wound Margin Distinct, Outline Attached -Granulation Amt Large (67-100%) -Granulation Quality [place] -Slough/Fibrin No -Necrosis Amt None Present (0 %) -Texture (Kassandra-wound Skin Appearance) Assessed, Scarring -Moisture (Kassandra-wound Skin Appearance Assessed,Dry/ ) Scaly -Color (Kassandra-wound Skin Appearance) Assessed -Temperature (Kassandra-wound Skin No Abnormality Appearance) (Pt Warm) -Tenderness on Palpation (Kassandra-wound No Skin Appearance) -Ulcer Cleansing Rinsed/ Irrigated with Saline -Foul Odor after Cleansing No -Anesthetic Used 4% Lidocaine Solution WC - Nurse 2 - General Ulcer CM Notes Start: 10/10/19 11:13 Freq: Status: Active Protocol: Activity Type Activity Date Activity User E-Sign Co-Sign Detail Recorded Client Recorded Date Recorded By Document 10/10/19 11:41 TONG [id number] 10/10/19 11:49 TONG 10/10/19 11:41 Wound Center Nurse 2 [Procedure/Treatment] 3-right side abdomen -Time 11:44 -Correct Patient Yes -Correct Side, Site, Position Yes -Correct Procedure Yes -Procedure Performed Yes -Type of Procedure Debridement -Clinical Debridement Subcutaneous -Post Debridement Size (cm) - Length 0.2 -Post Debridement Size (cm) - Width 0.7 -Post Debridement Size (cm) - Depth 0.5 -Total Square Cm 0.14 -Wound/Ulcer Outcome Not Healed -Ulcer Cleansing Rinsed/ Irrigated with Saline -Foul Odor after Cleansing No -Bioengineered Tissue No -Bleeding Controlled with Pressure -Offloading No -Treatment Response Procedure Tolerated Well #2 Sacral -Time 11:47 -Correct Patient Yes -Correct Side, Site, Position Yes -Correct Procedure Yes -Procedure Performed Yes -Type of Procedure Debridement -Clinical Debridement Subcutaneous -Post Debridement Size (cm) - Length 4.8 -Post Debridement Size (cm) - Width 1.6 -Post Debridement Size (cm) - Depth 0.5 -Total Square Cm 7.68 -Wound/Ulcer Outcome Not Healed -Ulcer Cleansing Rinsed/ Irrigated with Saline -Foul Odor after Cleansing No -Bioengineered Tissue No -Bleeding Controlled with Pressure -Offloading No -Treatment Response Procedure Tolerated Well #1- ABDOMEN -Time 11:42 -Correct Patient Yes -Correct Side, Site, Position Yes -Correct Procedure Yes -Procedure Performed Yes -Type of Procedure Debridement -Clinical Debridement Subcutaneous -Post Debridement Size (cm) - Length 0.8 -Post Debridement Size (cm) - Width 11.3 -Post Debridement Size (cm) - Depth 0.2 -Total Square Cm 9.04 -Wound/Ulcer Outcome Not Healed -Ulcer Cleansing Rinsed/ Irrigated with Saline -Foul Odor after Cleansing No -Bioengineered Tissue No -Bleeding Controlled with Pressure -Offloading No -Treatment Response Procedure Tolerated Well [See Physician Procedure note for Specifics] Pain Scale: 0-10 Numeric [Pain] -Is Patient Pain Free? Yes Musculoskeletal: No Tenderness to Palpation of Joints or Extremities Neurological: Neuro grossly intact Psych/Mental Status: Normal Affect, Appropriate Debridement Note Post-Debridement Measurements/Treatment WC - Nurse 2 - General Ulcer CM Notes Start: 10/10/19 11:13 Freq: Status: Active Protocol: Activity Type Activity Date Activity User E-Sign Co-Sign Detail Recorded Client Recorded Date Recorded By Document 10/10/19 11:41 [id number] 10/10/19 11:49 10/10/19 11:41 Wound Center Nurse 2 3-right side abdomen -Time 11:44 -Correct Patient Yes -Correct Side, Site, Position Yes -Correct Procedure Yes -Procedure Performed Yes -Type of Procedure Debridement -Clinical Debridement Subcutaneous -Post Debridement Size (cm) - Length 0.2 -Post Debridement Size (cm) - Width 0.7 -Post Debridement Size (cm) - Depth 0.5 -Total Square Cm 0.14 -Wound/Ulcer Outcome Not Healed -Ulcer Cleansing Rinsed/ Irrigated with Saline -Foul Odor after Cleansing No -Bioengineered Tissue No -Bleeding Controlled with Pressure -Offloading No -Treatment Response Procedure Tolerated Well #2 Sacral -Time 11:47 -Correct Patient Yes -Correct Side, Site, Position Yes -Correct Procedure Yes -Procedure Performed Yes -Type of Procedure Debridement -Clinical Debridement Subcutaneous -Post Debridement Size (cm) - Length 4.8 -Post Debridement Size (cm) - Width 1.6 -Post Debridement Size (cm) - Depth 0.5 -Total Square Cm 7.68 -Wound/Ulcer Outcome Not Healed -Ulcer Cleansing Rinsed/ Irrigated with Saline -Foul Odor after Cleansing No -Bioengineered Tissue No -Bleeding Controlled with Pressure -Offloading No -Treatment Response Procedure Tolerated Well #1- ABDOMEN -Time 11:42 -Correct Patient Yes -Correct Side, Site, Position Yes -Correct Procedure Yes -Procedure Performed Yes -Type of Procedure Debridement -Clinical Debridement Subcutaneous -Post Debridement Size (cm) - Length 0.8 -Post Debridement Size (cm) - Width 11.3 -Post Debridement Size (cm) - Depth 0.2 -Total Square Cm 9.04 -Wound/Ulcer Outcome Not Healed -Ulcer Cleansing Rinsed/ Irrigated with Saline -Foul Odor after Cleansing No -Bioengineered Tissue No -Bleeding Controlled with Pressure -Offloading No -Treatment Response Procedure Tolerated Well Pain Scale: 0-10 Numeric Is Patient Pain Free? Yes Wound debrided: Lower abdomen Type of Debridement: Excisional debridement Anesthesia Used: 5% Lidocaine Gel Depth: Down to and including healthy tissue, in the subcutaneous layer Percentage of wound debrided: 100 Instrument Used: 3mm curette Tissue Removed: Subcutaneous tissue and slough Severity: Limited To Skin Breakdown Amount of bleeding with debridement: Mild Bleeding Controlled with: Pressure Patient tolerated procedure well - Additional Wound Wound debrided: Sacral/perianal Type of Debridement: Excisional debridement Anesthesia Used: 5% Lidocaine Gel Depth: Down to and including healthy tissue, in the subcutaneous layer Percentage of wound debrided: 100 Instrument Used: 5mm curette Tissue Removed: Cutaneous tissues left Severity: Fat Layer Exposed Amount of bleeding with debridement: Mild Bleeding Controlled with: Pressure Patient tolerated procedure: Patient tolerated procedure well Assessment/Plan Active Problems (Last Reviewed 07/29/19 @ 00:16 by Tyron Yang MD) Chronic ulcer of buttock (Chronic) Skin ulcer of abdominal wall with fat layer exposed (Chronic) Scrotal abscess (Acute) Diabetes (Chronic) Smoker (Chronic) Hidradenitis suppurativa (Chronic) abdominal wall skin crease bilateral inguinal/medial thighs Assessment: 1. Hidradenitis abscess bilateral superior gluteal/perianal area. 2. Hidradenitis. 3. Diabetes mellitus. 4. Smoker. 5. s/p surgery for surgical preparation abdominal wall with excisional debridement skin and subcutaneous tissue and fascia necrotizing soft tissue hidradenitis infection (4 92 cm2) and abdominal panniculectomy. 6. s/p surgical preparation bilateral superior gluteal/perianal area with excision necrotizing hidradenitis abscess (143 cm2). Plan: Wound VAC to the lower abdominal incision was discontinued as was Dakin's dressing changes to the superior gluteal/perianal ulcer and the abdominal ulcer. We will do collagen hydrogel to the lower abdomen ulcer and Laurel to the gluteal/perianal ulcer. Wound culture from 07/29/19 showed Anaerobic cocci. Preop culture showed E. coli, Coag negative Staph, and Gram positive kaylah. Wound culture from 07/19/19 showed Streptococcus anginosus and Actinomyces meyeri. He is currently on Augmentin. Prealbumin from 07/29/19 was 7.6. Encourage nutritional supplementation with protein to help the healing process. Neurontin is helping with the burning pain. Had a extensive conversation with patient about weaning off the Duragesic patch and then weaning off the Dilaudid. He verbalized understanding. He states he stopped the Lexapro because he was experiencing side effects. Percocet (40). OARRS reviewed. Valium (14). OARRS report reviewed. He has a new spot of Hidradenitis on his left scrotum and flare on the right thigh. Placed him on Doxycycline which helped with these flares. Today he complains of bladder pressure with urinary frequency. Ordered a UA. Encouraged him to stop smoking as this could be deleterious to his wound healing. Follow up in one week. Code Visit 111xxx-113xx: [id number] Steff subq tissue 20 sq cm/<
[2019-10-17 11:19] VITALS: RESP 16; TEMP 37; BMI 35.2
--- NOTE | 2019-10-17 14:48 | PN.PCM_ITS ---
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: Chronic Current Visit: Yes Code(s): L98.492 - Non-pressure chronic ulcer of skin of other sites with fat layer exposed (2) Chronic ulcer of buttock Status: Chronic Current Visit: Yes Code(s): L98.419 - Non-pressure chronic ulcer of buttock with unspecified severity (3) Scrotal abscess Status: Acute Current Visit: Yes Code(s): N49.2 - Inflammatory disorders of scrotum (4) Diabetes Status: Chronic Current Visit: Yes Code(s): E11.9 - Type 2 diabetes mellitus without complications (5) Hidradenitis suppurativa Status: Chronic Current Visit: Yes Code(s): L73.2 - Hidradenitis suppurativa Comment: abdominal wall skin crease bilateral inguinal/medial thighs (6) Smoker Status: Chronic Current Visit: Yes Code(s): F17.200 - Nicotine dependence, unspecified, uncomplicated Type of Wound Date of Service: 10/17/19 Chief Complaint: Nonhealing ulcers lower abdominal wall and bilateral superior gluteal/perianal areas. History of Wound: Surgery 07/29/19 - surgical preparation bilateral superior gluteal/perianal area with excision necrotizing hidradenitis abscess (143 cm2). Surgery 07/19/19 - surgical preparation abdominal wall with excisional debridement skin and subcutaneous tissue and fascia necrotizing soft tissue hidradenitis infection and abdominal pannculectomy. Wound Care -continue Laurel to superior gluteal/perianal area and collagen hydrogel to the abdomen. Operative culture - Anaerobic cocci and preoperatively E coli, Coag negative Staph, and Gram positive kaylah. He was discharged on Augmentin. Culture from 07/19/19 surgery showed Streptococcus anginosus and Actinomyces meyeri. Prealbumin from 07/29/19 was 7.6. Encourage nutritional supplementation with protein to help the healing process. Today he denies fever. His appetite is better. Progress of Wound: Improved. - Physical Exam Vital Signs Temp Pulse Resp BP 98.6 F 88 16 158/74 H 10/17/19 11:19 10/10/19 11:13 10/17/19 11:19 10/10/19 11:13 General: Alert, Oriented x3, Cooperative HEENT: Atraumatic, PERRLA Oral: Moist Mucosa Lungs: Normal air movement Cardiovascular: Regular rate Abdomen: Soft Extremities: Capillary Refill Less than 3 Seconds Skin: Ulcer/ Wound - Gluteal/perianal ulcer, lower abdominal ulcer. Has a new spot of hydradenitis on the left scrotum and bilateral medial thighs Wound Measurements and Assessment WC - Nurse 1 - General Ulcer Measurement Start: 10/10/19 11:13 Freq: Status: Active Protocol: Activity Type Activity Date Activity User E-Sign Co-Sign Detail Recorded Client Recorded Date Recorded By Document 10/17/19 11:19 [facility] [id number] 10/17/19 11:32 [facility] 10/17/19 11:19 Wound Center Nurse 1 [Ulcer Assessment] 3-right side abdomen -Combined with other wound No -Current Size (cm) - Length 0.1 -Current Size (cm) - Width 0.2 -Current Size (cm) - Depth 0.2 -Total Square Cm 0.02 -Photo Taken No -Epithelialization None Present -Tunneling No -Undermining/Tunneling No -Circular Undermining No -Exudate Amt None Present -Wound Margin Distinct, Outline Attached -Granulation Amt Large (67-100%) -Granulation Quality Red -Slough/Fibrin No -Necrosis Amt None Present (0 %) -Texture (Kassandra-wound Skin Appearance) Assessed, Scarring -Moisture (Kassandra-wound Skin Appearance Assessed ) -Color (Kassandra-wound Skin Appearance) Assessed -Temperature (Kassandra-wound Skin No Abnormality Appearance) (Pt Warm) -Tenderness on Palpation (Kassandra-wound Yes Skin Appearance) -Ulcer Cleansing Rinsed/ Irrigated with Saline -Foul Odor after Cleansing No -Anesthetic Used 4% Lidocaine Solution #2 Sacral -Combined with other wound No -Current Size (cm) - Length 3.7 -Current Size (cm) - Width 1.5 -Current Size (cm) - Depth 0.5 -Total Square Cm 5.55 -Photo Taken No -Epithelialization Small 1-33% -Tunneling No -Undermining/Tunneling No -Circular Undermining No -Exudate Amt Small -Exudate Type Serosanguineous -Wound Margin Flat & Intact -Granulation Amt Large (67-100%) -Granulation Quality Pale,[place] -Slough/Fibrin Yes -Necrosis Amt Small (1-33%) -Necrotic Tissue Type Adherent Slough -Texture (Kassandra-wound Skin Appearance) Assessed, Scarring -Moisture (Kassandra-wound Skin Appearance Assessed ) -Color (Kassandra-wound Skin Appearance) Assessed -Temperature (Kassandra-wound Skin No Abnormality Appearance) (Pt Warm) -Tenderness on Palpation (Kassandra-wound No Skin Appearance) -Ulcer Cleansing Rinsed/ Irrigated with Saline -Foul Odor after Cleansing No -Anesthetic Used 4% Lidocaine Solution #1- ABDOMEN -Combined with other wound No -Current Size (cm) - Length 0.3 -Current Size (cm) - Width 2.5 -Current Size (cm) - Depth 0.1 -Total Square Cm 0.75 -Photo Taken No -Epithelialization Large 67-100% -Tunneling No -Undermining/Tunneling No -Circular Undermining No -Exudate Amt None Present -Wound Margin Flat & Intact -Granulation Amt Large (67-100%) -Granulation Quality Red -Slough/Fibrin Yes -Necrosis Amt Medium (34-66%) -Necrotic Tissue Type Adherent Slough -Texture (Kassandra-wound Skin Appearance) Assessed, Scarring -Moisture (Kassandra-wound Skin Appearance Assessed,Dry/ ) Scaly -Color (Kassandra-wound Skin Appearance) Assessed -Temperature (Kassandra-wound Skin No Abnormality Appearance) (Pt Warm) -Tenderness on Palpation (Kassandra-wound No Skin Appearance) -Ulcer Cleansing Rinsed/ Irrigated with Saline -Foul Odor after Cleansing No -Anesthetic Used 4% Lidocaine Solution WC - Nurse 2 - General Ulcer CM Notes Start: 10/10/19 11:13 Freq: Status: Active Protocol: Activity Type Activity Date Activity User E-Sign Co-Sign Detail Recorded Client Recorded Date Recorded By Document 10/17/19 11:46 TONG [id number] 10/17/19 11:52 TONG 10/17/19 11:46 Wound Center Nurse 2 [Procedure/Treatment] 3-right side abdomen -Time 11:47 -Correct Patient Yes -Correct Side, Site, Position Yes -Correct Procedure Yes -Procedure Performed Yes -Type of Procedure Debridement -Clinical Debridement Selective -Post Debridement Size (cm) - Length 1 -Post Debridement Size (cm) - Width 1.5 -Post Debridement Size (cm) - Depth 0.1 -Total Square Cm 1.5 -Wound/Ulcer Outcome Not Healed -Ulcer Cleansing Rinsed/ Irrigated with Saline -Foul Odor after Cleansing No -Bioengineered Tissue No -Bleeding Controlled with Pressure -Offloading No -Treatment Response Procedure Tolerated Well #2 Sacral -Time 11:47 -Correct Patient Yes -Correct Side, Site, Position Yes -Correct Procedure Yes -Procedure Performed Yes -Type of Procedure Debridement -Clinical Debridement Subcutaneous -Post Debridement Size (cm) - Length 3.3 -Post Debridement Size (cm) - Width 1.3 -Post Debridement Size (cm) - Depth 0.5 -Total Square Cm 4.29 -Wound/Ulcer Outcome Not Healed -Ulcer Cleansing Rinsed/ Irrigated with Saline -Foul Odor after Cleansing No -Bioengineered Tissue No -Bleeding Controlled with Pressure -Offloading No -Treatment Response Procedure Tolerated Well #1- ABDOMEN -Time 11:48 -Correct Patient Yes -Correct Side, Site, Position Yes -Correct Procedure Yes -Procedure Performed Yes -Type of Procedure Debridement -Clinical Debridement Selective -Post Debridement Size (cm) - Length 1 -Post Debridement Size (cm) - Width 6 -Post Debridement Size (cm) - Depth 0.1 -Total Square Cm 6 -Wound/Ulcer Outcome Not Healed -Ulcer Cleansing Rinsed/ Irrigated with Saline -Foul Odor after Cleansing No -Bioengineered Tissue No -Bleeding Controlled with Pressure -Offloading No -Treatment Response Procedure Tolerated Well [See Physician Procedure note for Specifics] Pain Scale: 0-10 Numeric [Pain] -Is Patient Pain Free? Yes Musculoskeletal: No Tenderness to Palpation of Joints or Extremities Neurological: Neuro grossly intact Psych/Mental Status: Normal Affect, Appropriate Debridement Note Post-Debridement Measurements/Treatment WC - Nurse 2 - General Ulcer CM Notes Start: 10/10/19 11:13 Freq: Status: Active Protocol: Activity Type Activity Date Activity User E-Sign Co-Sign Detail Recorded Client Recorded Date Recorded By Document 10/10/19 11:41 [id number] 10/10/19 11:49 Document 10/17/19 11:46 [id number] [id number] 10/17/19 11:52 10/10/19 10/17/19 11:41 11:46 Wound Center Nurse 2 3-right side abdomen -Time 11:44 11:47 -Correct Patient Yes Yes -Correct Side, Site, Position Yes Yes -Correct Procedure Yes Yes -Procedure Performed Yes Yes -Type of Procedure Debridement Debridement -Clinical Debridement Subcutaneous Selective -Post Debridement Size (cm) - Length 0.2 1 -Post Debridement Size (cm) - Width 0.7 1.5 -Post Debridement Size (cm) - Depth 0.5 0.1 -Total Square Cm 0.14 1.5 -Wound/Ulcer Outcome Not Healed Not Healed -Ulcer Cleansing Rinsed/ Rinsed/ Irrigated with Irrigated with Saline Saline -Foul Odor after Cleansing No No -Bioengineered Tissue No No -Bleeding Controlled with Pressure Pressure -Offloading No No -Treatment Response Procedure Procedure Tolerated Well Tolerated Well #2 Sacral -Time 11:47 11:47 -Correct Patient Yes Yes -Correct Side, Site, Position Yes Yes -Correct Procedure Yes Yes -Procedure Performed Yes Yes -Type of Procedure Debridement Debridement -Clinical Debridement Subcutaneous Subcutaneous -Post Debridement Size (cm) - Length 4.8 3.3 -Post Debridement Size (cm) - Width 1.6 1.3 -Post Debridement Size (cm) - Depth 0.5 0.5 -Total Square Cm 7.68 4.29 -Wound/Ulcer Outcome Not Healed Not Healed -Ulcer Cleansing Rinsed/ Rinsed/ Irrigated with Irrigated with Saline Saline -Foul Odor after Cleansing No No -Bioengineered Tissue No No -Bleeding Controlled with Pressure Pressure -Offloading No No -Treatment Response Procedure Procedure Tolerated Well Tolerated Well #1- ABDOMEN -Time 11:42 11:48 -Correct Patient Yes Yes -Correct Side, Site, Position Yes Yes -Correct Procedure Yes Yes -Procedure Performed Yes Yes -Type of Procedure Debridement Debridement -Clinical Debridement Subcutaneous Selective -Post Debridement Size (cm) - Length 0.8 1 -Post Debridement Size (cm) - Width 11.3 6 -Post Debridement Size (cm) - Depth 0.2 0.1 -Total Square Cm 9.04 6 -Wound/Ulcer Outcome Not Healed Not Healed -Ulcer Cleansing Rinsed/ Rinsed/ Irrigated with Irrigated with Saline Saline -Foul Odor after Cleansing No No -Bioengineered Tissue No No -Bleeding Controlled with Pressure Pressure -Offloading No No -Treatment Response Procedure Procedure Tolerated Well Tolerated Well Pain Scale: 0-10 Numeric Is Patient Pain Free? Yes Yes Wound debrided: Lower abdomen Type of Debridement: Selective debridement Anesthesia Used: 5% Lidocaine Gel Depth: Down to and including healthy tissue, in the subcutaneous layer Percentage of wound debrided: 100 Tissue Removed: Subcutaneous tissue and slough Severity: Limited To Skin Breakdown Amount of bleeding with debridement: Mild Bleeding Controlled with: Pressure Patient tolerated procedure well - Additional Wound Wound debrided: Gluteal/perianal ulcer Type of Debridement: Excisional debridement Anesthesia Used: 5% Lidocaine Gel Depth: Down to and including healthy tissue Percentage of wound debrided: 100 Instrument Used: 5mm curette Tissue Removed: Subcutaneous tissue and slough Severity: Fat Layer Exposed Amount of bleeding with debridement: Mild Bleeding Controlled with: Pressure Patient tolerated procedure: Patient tolerated procedure well Assessment/Plan Active Problems (Last Reviewed 07/29/19 @ 00:16 by Tyron Yang MD) Chronic ulcer of buttock (Chronic) Skin ulcer of abdominal wall with fat layer exposed (Chronic) Scrotal abscess (Acute) Diabetes (Chronic) Smoker (Chronic) Hidradenitis suppurativa (Chronic) abdominal wall skin crease bilateral inguinal/medial thighs Assessment: 1. Hidradenitis abscess bilateral superior gluteal/perianal area. 2. Hidradenitis. 3. Diabetes mellitus. 4. Smoker. 5. s/p surgery for surgical preparation abdominal wall with excisional debridement skin and subcutaneous tissue and fascia necrotizing soft tissue hidradenitis infection (492 cm2) and abdominal panniculectomy. 6. s/p surgical preparation bilateral superior gluteal/perianal area with excision necrotizing hidradenitis abscess (143 cm2). Plan: Wound VAC to the lower abdominal incision was discontinued as was Dakin's dressing changes to the superior gluteal/perianal ulcer and the abdominal ulcer. We will do collagen hydrogel to the lower abdomen ulcer and Laurel to the gluteal/perianal ulcer. Wound culture from 07/29/19 showed Anaerobic cocci. Preop culture showed E. coli, Coag negative Staph, and Gram positive kaylah. Wound culture from 07/19/19 showed Streptococcus anginosus and Actinomyces meyeri. He is currently on Augmentin. Prealbumin from 07/29/19 was 7.6. Encourage nutritional supplementation with protein to help the healing process. Neurontin is helping with the burning pain. Had a extensive conversation with patient about weaning off the Duragesic patch and then weaning off the Dilaudid. He verbalized understanding. He states he stopped the Lexapro because he was experiencing side effects. He has a new spot of Hidradenitis on his left scrotum and flare on the right thigh. Placed him on Doxycycline which helped with these flares. The scrotal abscess is more painful today but not opened or draining. He also having issues with his medial thighs. Will renew the doxycycline. Ok to take sitz baths daily and then use dakin's solution to wash the gluteal/perianal ulcer before applying the Laurel. A few weeks ago he complained of bladder pressure with urinary frequency. UA was negative. Encouraged him to stop smoking as this could be deleterious to his wound healing. Follow up in one week. Code Visit [id number]: [id number] Steff subq tissue 20 sq cm/<
[2019-10-24 12:26] VITALS: BP 141/90; PULSE 98; RESP 18; TEMP 37; BMI 35.2
--- NOTE | 2019-10-24 17:59 | PCM.WC.PN ---
Type of Wound Date of Service: 10/24/19 Chief Complaint: Nonhealing ulcers lower abdominal wall and bilateral superior gluteal/perianal areas. History of Wound: Surgery 07/29/19 - surgical preparation bilateral superior gluteal/perianal area with excision necrotizing hidradenitis abscess (143 cm2). Surgery 07/19/19 - surgical preparation abdominal wall with excisional debridement skin and subcutaneous tissue and fascia necrotizing soft tissue hidradenitis infection and abdominal pannculectomy. Wound Care - Collagen Hydrogel to abdominal wall. Laurel to bilateral superior gluteal/perianal area. Operative culture - Anaerobic cocci and preoperatively E coli, Coag negative Staph, and Gram positive kaylah. He was discharged on Augmentin and has finished them. Culture from 07/19/19 surgery showed Streptococcus anginosus and Actinomyces meyeri. Prealbumin from 07/29/19 was 7.6. Encourage nutritional supplementation with protein to help the healing process. Today he denies fever. His appetite is better. He has started to have intermittent flare ups in his bilateral inguinal and upper medial thigh areas that responded to Doxycycline. Progress of Wound: Lower abdominal wall ulcer is healed and the bilateral superior gluteal/perianal ulcer is improved. - Physical Exam Vital Signs Temp Pulse Resp BP 98.6 F 98 18 141/90 H 10/24/19 12:26 10/24/19 12:26 10/24/19 12:26 10/24/19 12:26 Wound Measurements and Assessment WC - Nurse 1 - General Ulcer Measurement Start: 10/10/19 11:13 Freq: Status: Active Protocol: Activity Type Activity Date Activity User E-Sign Co-Sign Detail Recorded Client Recorded Date Recorded By Document 10/24/19 12:26 [id number] 10/24/19 12:44 BS 10/24/19 12:26 Wound Center Nurse 1 [Ulcer Assessment] 3-right side abdomen -Combined with other wound No -Current Size (cm) - Length 0.1 -Current Size (cm) - Width 0.1 -Current Size (cm) - Depth 0.1 -Total Square Cm 0.01 -Ulcer Cleansing Rinsed/ Irrigated with Saline -Foul Odor after Cleansing No -Anesthetic Used 4% Lidocaine Solution #2 Sacral -Combined with other wound No -Current Size (cm) - Length 3.0 -Current Size (cm) - Width 1.5 -Current Size (cm) - Depth 0.5 -Total Square Cm 4.50 -Photo Taken No -Granulation Quality [place],Red -Texture (Kassandra-wound Skin Appearance) Assessed -Moisture (Kassandra-wound Skin Appearance Assessed, ) Maceration -Temperature (Kassandra-wound Skin No Abnormality Appearance) (Pt Warm) -Ulcer Cleansing Rinsed/ Irrigated with Saline -Foul Odor after Cleansing No -Anesthetic Used 4% Lidocaine Solution #1- ABDOMEN -Combined with other wound No -Current Size (cm) - Length 0.1 -Current Size (cm) - Width 0.1 -Current Size (cm) - Depth 0.1 -Total Square Cm 0.01 -Anesthetic Used 4% Lidocaine Solution WC - Nurse 2 - General Ulcer CM Notes Start: 10/10/19 11:13 Freq: Status: Active Protocol: Activity Type Activity Date Activity User E-Sign Co-Sign Detail Recorded Client Recorded Date Recorded By Document 10/24/19 13:29 TONG [id number] 10/24/19 13:31 TONG 10/24/19 13:29 Wound Center Nurse 2 [Procedure/Treatment] 3-right side abdomen -Correct Patient No -Correct Side, Site, Position No -Correct Procedure No -Procedure Performed No -Post Debridement Size (cm) - Length 0 -Post Debridement Size (cm) - Width 0 -Post Debridement Size (cm) - Depth 0 -Total Square Cm 0 -Wound/Ulcer Outcome Healed- Epithelialized #2 Sacral -Time 13:30 -Correct Patient Yes -Correct Side, Site, Position Yes -Correct Procedure Yes -Procedure Performed Yes -Type of Procedure Debridement -Clinical Debridement Subcutaneous -Post Debridement Size (cm) - Length 3 -Post Debridement Size (cm) - Width 1.6 -Post Debridement Size (cm) - Depth 0.5 -Total Square Cm 4.8 -Wound/Ulcer Outcome Not Healed -Ulcer Cleansing Rinsed/ Irrigated with Saline -Foul Odor after Cleansing No -Bioengineered Tissue No -Bleeding Controlled with Pressure -Offloading No -Treatment Response Procedure Tolerated Well #1- ABDOMEN -Correct Patient No -Correct Side, Site, Position No -Correct Procedure No -Procedure Performed No -Post Debridement Size (cm) - Length 0 -Post Debridement Size (cm) - Width 0 -Post Debridement Size (cm) - Depth 0 -Total Square Cm 0 -Wound/Ulcer Outcome Healed- Epithelialized [See Physician Procedure note for Specifics] Pain Scale: 0-10 Numeric [Pain] -Is Patient Pain Free? Yes Debridement Note Post-Debridement Measurements/Treatment WC - Nurse 2 - General Ulcer CM Notes Start: 10/10/19 11:13 Freq: Status: Active Protocol: Activity Type Activity Date Activity User E-Sign Co-Sign Detail Recorded Client Recorded Date Recorded By Document 10/10/19 11:41 [id number] 10/10/19 11:49 Document 10/17/19 11:46 [id number] 10/17/19 11:52 Document 10/24/19 13:29 [id number] 10/24/19 13:31 10/10/19 10/17/19 10/24/19 11:41 11:46 13:29 Wound Center Nurse 2 3-right side abdomen -Time 11:44 11:47 -Correct Patient Yes Yes No -Correct Side, Site, Position Yes Yes No -Correct Procedure Yes Yes No -Procedure Performed Yes Yes No -Type of Procedure Debridement Debridement -Clinical Debridement Subcutaneous Selective -Post Debridement Size (cm) - Length 0.2 1 0 -Post Debridement Size (cm) - Width 0.7 1.5 0 -Post Debridement Size (cm) - Depth 0.5 0.1 0 -Total Square Cm 0.14 1.5 0 -Wound/Ulcer Outcome Not Healed Not Healed Healed- Epithelialized -Ulcer Cleansing Rinsed/ Rinsed/ Irrigated with Irrigated with Saline Saline -Foul Odor after Cleansing No No -Bioengineered Tissue No No -Bleeding Controlled with Pressure Pressure -Offloading No No -Treatment Response Procedure Procedure Tolerated Well Tolerated Well #2 Sacral -Time 11:47 11:47 13:30 -Correct Patient Yes Yes Yes -Correct Side, Site, Position Yes Yes Yes -Correct Procedure Yes Yes Yes -Procedure Performed Yes Yes Yes -Type of Procedure Debridement Debridement Debridement -Clinical Debridement Subcutaneous Subcutaneous Subcutaneous -Post Debridement Size (cm) - Length 4.8 3.3 3 -Post Debridement Size (cm) - Width 1.6 1.3 1.6 -Post Debridement Size (cm) - Depth 0.5 0.5 0.5 -Total Square Cm 7.68 4.29 4.8 -Wound/Ulcer Outcome Not Healed Not Healed Not Healed -Ulcer Cleansing Rinsed/ Rinsed/ Rinsed/ Irrigated with Irrigated with Irrigated with Saline Saline Saline -Foul Odor after Cleansing No No No -Bioengineered Tissue No No No -Bleeding Controlled with Pressure Pressure Pressure -Offloading No No No -Treatment Response Procedure Procedure Procedure Tolerated Well Tolerated Well Tolerated Well #1- ABDOMEN -Time 11:42 11:48 -Correct Patient Yes Yes No -Correct Side, Site, Position Yes Yes No -Correct Procedure Yes Yes No -Procedure Performed Yes Yes No -Type of Procedure Debridement Debridement -Clinical Debridement Subcutaneous Selective -Post Debridement Size (cm) - Length 0.8 1 0 -Post Debridement Size (cm) - Width 11.3 6 0 -Post Debridement Size (cm) - Depth 0.2 0.1 0 -Total Square Cm 9.04 6 0 -Wound/Ulcer Outcome Not Healed Not Healed Healed- Epithelialized -Ulcer Cleansing Rinsed/ Rinsed/ Irrigated with Irrigated with Saline Saline -Foul Odor after Cleansing No No -Bioengineered Tissue No No -Bleeding Controlled with Pressure Pressure -Offloading No No -Treatment Response Procedure Procedure Tolerated Well Tolerated Well Pain Scale: 0-10 Numeric Is Patient Pain Free? Yes Yes Yes Wound debrided: #1 Lower abdominal wall. Laterality: Not Applicable Wound Grade/Stage: 2. No debridement was completed today - the ulcer has healed. - Additional Wound Wound debrided: #2 Bilateral superior gluteal/perianal area. Laterality: Not Applicable Wound Grade/Stage: 2. Type of Debridement: Excisional debridement Anesthesia Used: 4% Lidocaine Solution Depth: Down to and including healthy tissue, in the subcutaneous layer Percentage of wound debrided: 100 Instrument Used: 3mm curette Tissue Removed: subcutaneous tissue. Severity: Fat Layer Exposed Amount of bleeding with debridement: Mild Bleeding Controlled with: Pressure Patient tolerated procedure: Patient tolerated procedure well Assessment/Plan Active Problems (Last Reviewed 07/29/19 @ 00:16 by Tyron Yang MD) Chronic ulcer of buttock (Chronic) Skin ulcer of abdominal wall with fat layer exposed (Chronic) Scrotal abscess (Acute) Diabetes (Chronic) Smoker (Chronic) Hidradenitis suppurativa (Chronic) abdominal wall skin crease bilateral inguinal/medial thighs Assessment: 1. Hidradenitis abscess bilateral superior gluteal/perianal area. 2. Hidradenitis abdominal wall. 3. Nonhealing hidradenitis ulcer bilateral superior gluteal/perianal area. 4. Hidradenitis ulcer abdominal wall, healed. 5. Diabetes mellitus. 6. Smoker. 7. s/p surgery for surgical preparation abdominal wall with excisional debridement skin and subcutaneous tissue and fascia necrotizing soft tissue hidradenitis infection (492 cm2) and abdominal panniculectomy. 8. s/p surgical preparation bilateral superior gluteal/perianal area with excision necrotizing hidradenitis abscess (143 cm2). 9. Hidradenitis bilateral inguinal and medial upper thigh areas, stable. Plan: The abdominal wall ulcer is healed. The perianal ulcer continues to improve and will continue Laurel dressing changes daily. Wound culture from 07/29/19 showed Anaerobic cocci. Preop culture showed E. coli, Coag negative Staph, and Gram positive kaylah. Wound culture from 07/19/19 showed Streptococcus anginosus and Actinomyces meyeri. He was placed on Augmentin and has finished them. Prealbumin from 07/29/19 was 7.6. Encourage nutritional supplementation with protein to help the healing process. He had recent flare ups of hidradenitis in his bilateral inguinal and medial upper thigh areas and was placed on Doxycycline. The flare ups have responded to the antibiotic and are stable at this time. Encouraged him to stop smoking as this could be deleterious to his wound healing. Renewed his Percocet for pain (10 tabs). Follow up in 2 weeks. Code Visit Wound Center Charges CPT - 31930 ICD-10 - V58.49, L98.419, L98.492, L02.31, E65, L30.4, M79.89, E11.9, F17.200, L73.2
[2019-11-07 11:48] VITALS: BP 126/91; PULSE 80; RESP 18; TEMP 36.8; BMI 35.2
--- NOTE | 2019-11-07 16:16 | PCM.WC.PN ---
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: Chronic Code(s): L98.492 - Non-pressure chronic ulcer of skin of other sites with fat layer exposed (2) Chronic ulcer of buttock Status: Chronic Code(s): L98.419 - Non-pressure chronic ulcer of buttock with unspecified severity (3) Scrotal abscess Status: Acute Code(s): N49.2 - Inflammatory disorders of scrotum (4) Diabetes Status: Chronic Code(s): E11.9 - Type 2 diabetes mellitus without complications (5) Hidradenitis suppurativa Status: Chronic Code(s): L73.2 - Hidradenitis suppurativa Comment: abdominal wall skin crease bilateral inguinal/medial thighs (6) Smoker Status: Chronic Code(s): F17.200 - Nicotine dependence, unspecified, uncomplicated Type of Wound Date of Service: 11/07/19 Chief Complaint: Nonhealing ulcers lower abdominal wall and bilateral superior gluteal/perianal areas. History of Wound: Surgery 07/29/19 - surgical preparation bilateral superior gluteal/perianal area with excision necrotizing hidradenitis abscess (143 cm2). Surgery 07/19/19 - surgical preparation abdominal wall with excisional debridement skin and subcutaneous tissue and fascia necrotizing soft tissue hidradenitis infection and abdominal pannculectomy. Wound Care - Collagen Hydrogel to abdominal wall. Laurel to bilateral superior gluteal/perianal area. Operative culture - Anaerobic cocci and preoperatively E coli, Coag negative Staph, and Gram positive kaylah. He was discharged on Augmentin and has finished them. Culture from 07/19/19 surgery showed Streptococcus anginosus and Actinomyces meyeri. Prealbumin from 07/29/19 was 7.6. Encourage nutritional supplementation with protein to help the healing process. Today he denies fever. His appetite is better. He has started to have intermittent flare ups in his bilateral inguinal and upper medial thigh areas that responded to Doxycycline. Progress of Wound: Lower abdominal wall ulcer has reopened and the bilateral superior gluteal/perianal ulcer is improved. - Physical Exam Vital Signs Temp Pulse Resp BP 98.3 F 80 18 126/91 H 11/07/19 11:48 11/07/19 11:48 11/07/19 11:48 11/07/19 11:48 General: Alert, Oriented x3, Cooperative HEENT: Atraumatic Oral: Moist Mucosa Lungs: Normal air movement Cardiovascular: Regular rate Abdomen: Soft Extremities: Capillary Refill Less than 3 Seconds Skin: Ulcer/ Wound - lower mid abdominal ulcer has reopened, superficially. Sacral ulcer has improved Wound Measurements and Assessment WC - Nurse 1 - General Ulcer Measurement Start: 10/10/19 11:13 Freq: Status: Active Protocol: Activity Type Activity Date Activity User E-Sign Co-Sign Detail Recorded Client Recorded Date Recorded By Document 11/07/19 11:48 [facility] [id number] 11/07/19 11:56 [facility] 11/07/19 11:48 Wound Center Nurse 1 [Ulcer Assessment] #4- ABDOMINAL CLUSTER -Combined with other wound No -Current Size (cm) - Length 0.6 -Current Size (cm) - Width 4 -Current Size (cm) - Depth 0.1 -Total Square Cm 2.4 -Date of Last Picture (Recall this 11/07/19 field) -Photo Taken Yes -Epithelialization None Present -Tunneling No -Undermining/Tunneling No -Circular Undermining No -Exudate Amt Small -Exudate Type Serosanguineous -Wound Margin Distinct, Outline Attached -Granulation Amt Medium (34-66%) -Granulation Quality [place] -Slough/Fibrin Yes -Necrosis Amt Small (1-33%) -Necrotic Tissue Type Adherent Slough -Texture (Kassandra-wound Skin Appearance) Assessed, Scarring -Moisture (Kassandra-wound Skin Appearance Assessed ) -Color (Kassandra-wound Skin Appearance) Assessed, Erythema -Temperature (Kassandra-wound Skin No Abnormality Appearance) (Pt Warm) -Tenderness on Palpation (Kassandra-wound Yes Skin Appearance) -Ulcer Cleansing Rinsed/ Irrigated with Saline -Foul Odor after Cleansing No -Anesthetic Used 5% Lidocaine Gel #2 Sacral -Combined with other wound No -Current Size (cm) - Length 1.5 -Current Size (cm) - Width 0.7 -Current Size (cm) - Depth 0.1 -Total Square Cm 1.05 -Photo Taken No -Epithelialization None Present -Tunneling No -Undermining/Tunneling No -Circular Undermining No -Exudate Amt Small -Exudate Type Serosanguineous -Wound Margin Distinct, Outline Attached -Granulation Amt Medium (34-66%) -Granulation Quality Pale,Red -Slough/Fibrin Yes -Necrosis Amt Small (1-33%) -Necrotic Tissue Type Adherent Slough -Texture (Kassandra-wound Skin Appearance) Assessed -Moisture (Kassandra-wound Skin Appearance Assessed, ) Maceration -Color (Kassandra-wound Skin Appearance) Assessed,Palor -Temperature (Kassandra-wound Skin No Abnormality Appearance) (Pt Warm) -Tenderness on Palpation (Kassandra-wound Yes Skin Appearance) -Ulcer Cleansing Rinsed/ Irrigated with Saline -Foul Odor after Cleansing No -Anesthetic Used 5% Lidocaine Gel WC - Nurse 2 - General Ulcer CM Notes Start: 10/10/19 11:13 Freq: Status: Active Protocol: Activity Type Activity Date Activity User E-Sign Co-Sign Detail Recorded Client Recorded Date Recorded By Document 11/07/19 12:34 TONG [id number] 11/07/19 12:45 TONG 11/07/19 12:34 Wound Center Nurse 2 [Procedure/Treatment] #4- ABDOMINAL CLUSTER -Time 12:39 -Correct Patient Yes -Correct Side, Site, Position Yes -Correct Procedure Yes -Procedure Performed Yes -Type of Procedure Debridement -Clinical Debridement Subcutaneous -Post Debridement Size (cm) - Length 7 -Post Debridement Size (cm) - Width 0.6 -Post Debridement Size (cm) - Depth 0.2 -Total Square Cm 4.2 -Wound/Ulcer Outcome Not Healed -Ulcer Cleansing Rinsed/ Irrigated with Saline -Foul Odor after Cleansing No -Bioengineered Tissue No -Bleeding Controlled with Pressure -Offloading No -Treatment Response Procedure Tolerated Well #2 Sacral -Time 12:38 -Correct Patient Yes -Correct Side, Site, Position Yes -Correct Procedure Yes -Procedure Performed Yes -Type of Procedure Debridement -Clinical Debridement Subcutaneous -Post Debridement Size (cm) - Length 2.0 -Post Debridement Size (cm) - Width 0.7 -Post Debridement Size (cm) - Depth 0.2 -Total Square Cm 1.40 -Wound/Ulcer Outcome Not Healed -Ulcer Cleansing Rinsed/ Irrigated with Saline -Bioengineered Tissue No -Bleeding Controlled with Pressure -Offloading No -Treatment Response Procedure Tolerated Well [See Physician Procedure note for Specifics] Pain Scale: 0-10 Numeric [Pain] -Is Patient Pain Free? Yes Musculoskeletal: No Muscle Wasting Neurological: Neuro grossly intact Psych/Mental Status: Normal Affect, Appropriate Debridement Note Post-Debridement Measurements/Treatment WC - Nurse 2 - General Ulcer CM Notes Start: 10/10/19 11:13 Freq: Status: Active Protocol: Activity Type Activity Date Activity User E-Sign Co-Sign Detail Recorded Client Recorded Date Recorded By Document 10/10/19 11:41 [id number] 10/10/19 11:49 Document 10/17/19 11:46 [id number] 10/17/19 11:52 Document 10/24/19 13:29 [id number] 10/24/19 13:31 Document 11/07/19 12:34 [id number] 11/07/19 12:45 10/10/19 10/17/19 10/24/19 11:41 11:46 13:29 Wound Center Nurse 2 #4- ABDOMINAL CLUSTER -Time -Correct Patient -Correct Side, Site, Position -Correct Procedure -Procedure Performed -Type of Procedure -Clinical Debridement -Post Debridement Size (cm) - Length -Post Debridement Size (cm) - Width -Post Debridement Size (cm) - Depth -Total Square Cm -Wound/Ulcer Outcome -Ulcer Cleansing -Foul Odor after Cleansing -Bioengineered Tissue -Bleeding Controlled with -Offloading -Treatment Response 3-right side abdomen -Time 11:44 11:47 -Correct Patient Yes Yes No -Correct Side, Site, Position Yes Yes No -Correct Procedure Yes Yes No -Procedure Performed Yes Yes No -Type of Procedure Debridement Debridement -Clinical Debridement Subcutaneous Selective -Post Debridement Size (cm) - Length 0.2 1 0 -Post Debridement Size (cm) - Width 0.7 1.5 0 -Post Debridement Size (cm) - Depth 0.5 0.1 0 -Total Square Cm 0.14 1.5 0 -Wound/Ulcer Outcome Not Healed Not Healed Healed- Epithelialized -Ulcer Cleansing Rinsed/ Rinsed/ Irrigated with Irrigated with Saline Saline -Foul Odor after Cleansing No No -Bioengineered Tissue No No -Bleeding Controlled with Pressure Pressure -Offloading No No -Treatment Response Procedure Procedure Tolerated Well Tolerated Well #2 Sacral -Time 11:47 11:47 13:30 -Correct Patient Yes Yes Yes -Correct Side, Site, Position Yes Yes Yes -Correct Procedure Yes Yes Yes -Procedure Performed Yes Yes Yes -Type of Procedure Debridement Debridement Debridement -Clinical Debridement Subcutaneous Subcutaneous Subcutaneous -Post Debridement Size (cm) - Length 4.8 3.3 3 -Post Debridement Size (cm) - Width 1.6 1.3 1.6 -Post Debridement Size (cm) - Depth 0.5 0.5 0.5 -Total Square Cm 7.68 4.29 4.8 -Wound/Ulcer Outcome Not Healed Not Healed Not Healed -Ulcer Cleansing Rinsed/ Rinsed/ Rinsed/ Irrigated with Irrigated with Irrigated with Saline Saline Saline -Foul Odor after Cleansing No No No -Bioengineered Tissue No No No -Bleeding Controlled with Pressure Pressure Pressure -Offloading No No No -Treatment Response Procedure Procedure Procedure Tolerated Well Tolerated Well Tolerated Well #1- ABDOMEN -Time 11:42 11:48 -Correct Patient Yes Yes No -Correct Side, Site, Position Yes Yes No -Correct Procedure Yes Yes No -Procedure Performed Yes Yes No -Type of Procedure Debridement Debridement -Clinical Debridement Subcutaneous Selective -Post Debridement Size (cm) - Length 0.8 1 0 -Post Debridement Size (cm) - Width 11.3 6 0 -Post Debridement Size (cm) - Depth 0.2 0.1 0 -Total Square Cm 9.04 6 0 -Wound/Ulcer Outcome Not Healed Not Healed Healed- Epithelialized -Ulcer Cleansing Rinsed/ Rinsed/ Irrigated with Irrigated with Saline Saline -Foul Odor after Cleansing No No -Bioengineered Tissue No No -Bleeding Controlled with Pressure Pressure -Offloading No No -Treatment Response Procedure Procedure Tolerated Well Tolerated Well Pain Scale: 0-10 Numeric Is Patient Pain Free? Yes Yes Yes 11/07/19 12:34 Wound Center Nurse 2 #4- ABDOMINAL CLUSTER -Time 12:39 -Correct Patient Yes -Correct Side, Site, Position Yes -Correct Procedure Yes -Procedure Performed Yes -Type of Procedure Debridement -Clinical Debridement Subcutaneous -Post Debridement Size (cm) - Length 7 -Post Debridement Size (cm) - Width 0.6 -Post Debridement Size (cm) - Depth 0.2 -Total Square Cm 4.2 -Wound/Ulcer Outcome Not Healed -Ulcer Cleansing Rinsed/ Irrigated with Saline -Foul Odor after Cleansing No -Bioengineered Tissue No -Bleeding Controlled with Pressure -Offloading No -Treatment Response Procedure Tolerated Well 3-right side abdomen -Time -Correct Patient -Correct Side, Site, Position -Correct Procedure -Procedure Performed -Type of Procedure -Clinical Debridement -Post Debridement Size (cm) - Length -Post Debridement Size (cm) - Width -Post Debridement Size (cm) - Depth -Total Square Cm -Wound/Ulcer Outcome -Ulcer Cleansing -Foul Odor after Cleansing -Bioengineered Tissue -Bleeding Controlled with -Offloading -Treatment Response #2 Sacral -Time 12:38 -Correct Patient Yes -Correct Side, Site, Position Yes -Correct Procedure Yes -Procedure Performed Yes -Type of Procedure Debridement -Clinical Debridement Subcutaneous -Post Debridement Size (cm) - Length 2.0 -Post Debridement Size (cm) - Width 0.7 -Post Debridement Size (cm) - Depth 0.2 -Total Square Cm 1.40 -Wound/Ulcer Outcome Not Healed -Ulcer Cleansing Rinsed/ Irrigated with Saline -Foul Odor after Cleansing -Bioengineered Tissue No -Bleeding Controlled with Pressure -Offloading No -Treatment Response Procedure Tolerated Well #1- ABDOMEN -Time -Correct Patient -Correct Side, Site, Position -Correct Procedure -Procedure Performed -Type of Procedure -Clinical Debridement -Post Debridement Size (cm) - Length -Post Debridement Size (cm) - Width -Post Debridement Size (cm) - Depth -Total Square Cm -Wound/Ulcer Outcome -Ulcer Cleansing -Foul Odor after Cleansing -Bioengineered Tissue -Bleeding Controlled with -Offloading -Treatment Response Pain Scale: 0-10 Numeric Is Patient Pain Free? Yes Wound debrided: sacral ulcer Type of Debridement: Excisional debridement Anesthesia Used: 5% Lidocaine Gel Depth: Down to and including healthy tissue, in the subcutaneous layer Percentage of wound debrided: 100 Instrument Used: 3mm curette Tissue Removed: subcutaneous tissue and slough Severity: Fat Layer Exposed Amount of bleeding with debridement: Mild Bleeding Controlled with: Pressure Patient tolerated procedure well - Additional Wound Wound debrided: mid lower abdominal ulcer Type of Debridement: Excisional debridement Anesthesia Used: 5% Lidocaine Gel Depth: Down to and including healthy tissue, in the subcutaneous layer Percentage of wound debrided: 100 Instrument Used: 3mm curette Tissue Removed: subcutaneous tissue and slough Severity: Limited To Skin Breakdown Amount of bleeding with debridement: Mild Bleeding Controlled with: Pressure Patient tolerated procedure: Patient tolerated procedure well Assessment/Plan Assessment: 1. Hidradenitis abscess bilateral superior gluteal/perianal area. 2. Hidradenitis abdominal wall. 3. Nonhealing hidradenitis ulcer bilateral superior gluteal/perianal area. 4. Hidradenitis ulcer abdominal wall, healed. 5. Diabetes mellitus. 6. Smoker. 7. s/p surgery for surgical preparation abdominal wall with excisional debridement skin and subcutaneous tissue and fascia necrotizing soft tissue hidradenitis infection (492 cm2) and abdominal panniculectomy. 8. s/p surgical preparation bilateral superior gluteal/perianal area with excision necrotizing hidradenitis abscess (143 cm2). 9. Hidradenitis bilateral inguinal and medial upper thigh areas, stable. Plan: The abdominal wall ulcer reopened. Will place collagen hydrogel to the area. Encouraged to massage the scarring with lotion where he is healed. The perianal ulcer continues to improve and will continue Laurel dressing changes daily. Wound culture from 07/29/19 showed Anaerobic cocci. Preop culture showed E. coli, Coag negative Staph, and Gram positive kaylah. Wound culture from 07/19/19 showed Streptococcus anginosus and Actinomyces meyeri. He was placed on Augmentin and has finished them. Prealbumin from 07/29/19 was 7.6. Encourage nutritional supplementation with protein to help the healing process. He had recent flare ups of hidradenitis in his bilateral inguinal and medial upper thigh areas and was placed on Doxycycline. The flare ups have responded to the antibiotic and are stable at this time. Encouraged him to stop smoking as this could be deleterious to his wound healing. Follow up one week. Code Visit [id number]: [id number] Steff subq tissue 20 sq cm/<
== END 2019-11-08 23:59 ==
LOC: WC 11:15
PROVIDERS: Family Provider Internal Medicine; PCP Internal Medicine; Referring Provider Nurse Practitioner Family; Visit Provider Nurse Practitioner Family
DX: E11.622 Type 2 diabetes mellitus with other skin ulcer (principal); L98.492 Non-pressure chronic ulcer of skin of other sites with fat layer exposed; L73.2 Hidradenitis suppurativa; F17.200 Nicotine dependence, unspecified, uncomplicated; R35.0 Frequency of micturition; N49.2 Inflammatory disorders of scrotum; L98.411 Non-pressure chronic ulcer of buttock limited to breakdown of skin; L98.422 Non-pressure chronic ulcer of back with fat layer exposed
CPT/HCPCS: 11042

== ENCOUNTER 2019-12-05 13:15 | Outpatient (RCR) | payer OTHER, SELFPAY ==
[2019-11-09 00:39] VITALS: BP 126/91; PULSE 80; RESP 18; TEMP 36.8
[2019-11-14 11:05] VITALS: BP 127/85; PULSE 98; RESP 20; TEMP 36.6; BMI 35.2
--- NOTE | 2019-11-14 15:52 | PN.PCM_ITS ---
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 Status: Chronic Current Visit: Yes Code(s): L98.492 - Non-pressure chronic ulcer of skin of other sites with fat layer exposed (3) Diabetes Status: Chronic Current Visit: Yes Code(s): E11.9 - Type 2 diabetes mellitus without complications (4) Smoker Status: Chronic Current Visit: Yes Code(s): F17.200 - Nicotine dependence, unspecified, uncomplicated (5) Hidradenitis suppurativa Status: Chronic Current Visit: Yes Code(s): L73.2 - Hidradenitis suppurativa Comment: abdominal wall skin crease bilateral inguinal/medial thighs (6) Hidradenitis suppurativa of anus Status: Chronic Current Visit: Yes Code(s): L73.2 - Hidradenitis suppurativa Type of Wound Date of Service: 11/14/19 Chief Complaint: Nonhealing ulcers lower abdominal wall and bilateral superior gluteal/perianal areas. History of Wound: Surgery 07/29/19 - surgical preparation bilateral superior gluteal/perianal area with excision necrotizing hidradenitis abscess (143 cm2). Surgery 07/19/19 - surgical preparation abdominal wall with excisional debridement skin and subcutaneous tissue and fascia necrotizing soft tissue hidradenitis infection and abdominal pannculectomy. Wound Care - Collagen Hydrogel to abdominal wall. Laurel to bilateral superior gluteal/perianal area. Operative culture - Anaerobic cocci and preoperatively E coli, Coag negative Staph, and Gram positive kaylah. He was discharged on Augmentin and has finished them. Culture from 07/19/19 surgery showed Streptococcus anginosus and Actinomyces meyeri. Prealbumin from 07/29/19 was 7.6. Encourage nutritional supplementation with protein to help the healing process. Today he denies fever. His appetite is better. He has started to have intermittent flare ups in his bilateral inguinal and upper medial thigh areas that responded to Doxycycline. Progress of Wound: Lower abdominal wall ulcer reopened and the bilateral superi or gluteal/perianal ulcer is improved. - Physical Exam Vital Signs Temp Pulse Resp BP 98 F 98 20 H 127/85 H 11/14/19 11:05 11/14/19 11:05 11/14/19 11:05 11/14/19 11:05 General: Alert, Oriented x3, Cooperative HEENT: Atraumatic Oral: Moist Mucosa Lungs: Normal air movement Cardiovascular: Regular rate Abdomen: Soft Extremities: Capillary Refill Less than 3 Seconds Skin: Ulcer/ Wound - lower abdominal ulcer and perianal ulcer Wound Measurements and Assessment WC - Nurse 1 - General Ulcer Measurement Start: 11/14/19 11:05 Freq: Status: Active Protocol: Activity Type Activity Date Activity User E-Sign Co-Sign Detail Recorded Client Recorded Date Recorded By Document 11/14/19 11:05 DL [id number] 11/14/19 11:12 DL 11/14/19 11:05 Wound Center Nurse 1 [Ulcer Assessment] #4- ABDOMINAL CLUSTER -Current Size (cm) - Length 0.4 -Current Size (cm) - Width 1.3 -Current Size (cm) - Depth 0.1 -Total Square Cm 0.52 -Photo Taken No -Exudate Amt Small -Exudate Type Serosanguineous -Wound Margin Distinct, Outline Attached -Granulation Amt Small (1-33%) -Granulation Quality [place] -Necrosis Amt Small (1-33%) -Necrotic Tissue Type Adherent Slough -Structure Exposed N/A -Texture (Kassandra-wound Skin Appearance) Scarring -Moisture (Kassandra-wound Skin Appearance No Abnormality ) -Color (Kassandra-wound Skin Appearance) No Abnormality -Temperature (Kassandra-wound Skin No Abnormality Appearance) (Pt Warm) -Tenderness on Palpation (Kassandra-wound No Skin Appearance) -Ulcer Cleansing Wound Cleanser -Foul Odor after Cleansing No -Anesthetic Used 5% Lidocaine Gel #2 Sacral -Current Size (cm) - Length 3 -Current Size (cm) - Width 0.3 -Current Size (cm) - Depth 0.1 -Total Square Cm 0.9 -Photo Taken No -Exudate Amt Small -Exudate Type Serosanguineous -Wound Margin Distinct, Outline Attached -Granulation Amt Large (67-100%) -Granulation Quality [place] -Necrosis Amt Small (1-33%) -Necrotic Tissue Type Adherent Slough -Structure Exposed N/A -Texture (Kassandra-wound Skin Appearance) Scarring -Moisture (Kassandra-wound Skin Appearance No Abnormality ) -Color (Kassandra-wound Skin Appearance) No Abnormality -Temperature (Kassandra-wound Skin No Abnormality Appearance) (Pt Warm) -Tenderness on Palpation (Kassandra-wound No Skin Appearance) -Ulcer Cleansing Wound Cleanser -Foul Odor after Cleansing No -Anesthetic Used 5% Lidocaine Gel WC - Nurse 2 - General Ulcer CM Notes Start: 11/14/19 11:05 Freq: Status: Active Protocol: Activity Type Activity Date Activity User E-Sign Co-Sign Detail Recorded Client Recorded Date Recorded By Document 11/14/19 11:26 TONG [id number] 11/14/19 11:29 11/14/19 11:26 Wound Center Nurse 2 [Procedure/Treatment] #4- ABDOMINAL CLUSTER -Time 11:27 -Correct Patient Yes -Correct Side, Site, Position Yes -Correct Procedure Yes -Procedure Performed Yes -Type of Procedure Debridement -Clinical Debridement Subcutaneous -Post Debridement Size (cm) - Length 0.5 -Post Debridement Size (cm) - Width 1.9 -Post Debridement Size (cm) - Depth 0.2 -Total Square Cm 0.95 -Wound/Ulcer Outcome Not Healed -Ulcer Cleansing Rinsed/ Irrigated with Saline -Foul Odor after Cleansing No -Bioengineered Tissue No -Bleeding Controlled with Pressure -Offloading No -Treatment Response Procedure Tolerated Well #2 Sacral -Time 11:28 -Correct Patient Yes -Correct Side, Site, Position Yes -Correct Procedure Yes -Procedure Performed Yes -Type of Procedure Debridement -Clinical Debridement Subcutaneous -Post Debridement Size (cm) - Length 3.1 -Post Debridement Size (cm) - Width 0.3 -Post Debridement Size (cm) - Depth 0.2 -Total Square Cm 0.93 -Wound/Ulcer Outcome Not Healed -Ulcer Cleansing Rinsed/ Irrigated with Saline -Foul Odor after Cleansing No -Bioengineered Tissue No -Bleeding Controlled with Pressure -Offloading No -Treatment Response Procedure Tolerated Well [See Physician Procedure note for Specifics] Pain Scale: 0-10 Numeric [Pain] -Is Patient Pain Free? Yes Musculoskeletal: No Muscle Wasting Neurological: Neuro grossly intact Psych/Mental Status: Normal Affect, Appropriate Debridement Note Post-Debridement Measurements/Treatment LISA - Nurse 2 - General Ulcer CM Notes Start: 11/14/19 11:05 Freq: Status: Active Protocol: Activity Type Activity Date Activity User E-Sign Co-Sign Detail Recorded Client Recorded Date Recorded By Document 11/14/19 11:26 [id number] 11/14/19 11:29 11/14/19 11:26 Wound Center Nurse 2 #4- ABDOMINAL CLUSTER -Time 11:27 -Correct Patient Yes -Correct Side, Site, Position Yes -Correct Procedure Yes -Procedure Performed Yes -Type of Procedure Debridement -Clinical Debridement Subcutaneous -Post Debridement Size (cm) - Length 0.5 -Post Debridement Size (cm) - Width 1.9 -Post Debridement Size (cm) - Depth 0.2 -Total Square Cm 0.95 -Wound/Ulcer Outcome Not Healed -Ulcer Cleansing Rinsed/ Irrigated with Saline -Foul Odor after Cleansing No -Bioengineered Tissue No -Bleeding Controlled with Pressure -Offloading No -Treatment Response Procedure Tolerated Well #2 Sacral -Time 11:28 -Correct Patient Yes -Correct Side, Site, Position Yes -Correct Procedure Yes -Procedure Performed Yes -Type of Procedure Debridement -Clinical Debridement Subcutaneous -Post Debridement Size (cm) - Length 3.1 -Post Debridement Size (cm) - Width 0.3 -Post Debridement Size (cm) - Depth 0.2 -Total Square Cm 0.93 -Wound/Ulcer Outcome Not Healed -Ulcer Cleansing Rinsed/ Irrigated with Saline -Foul Odor after Cleansing No -Bioengineered Tissue No -Bleeding Controlled with Pressure -Offloading No -Treatment Response Procedure Tolerated Well Pain Scale: 0-10 Numeric Is Patient Pain Free? Yes Wound debrided: lower abdominal ulcer Type of Debridement: Excisional debridement Anesthesia Used: 5% Lidocaine Gel Depth: Down to and including healthy tissue, in the subcutaneous layer Percentage of wound debrided: 100 Instrument Used: 3mm curette Tissue Removed: subcutaneous tissue and slough Severity: Limited To Skin Breakdown Amount of bleeding with debridement: Mild Bleeding Controlled with: Pressure Patient tolerated procedure well - Additional Wound Wound debrided: kassandra anal ulcer Type of Debridement: Excisional debridement Anesthesia Used: 5% Lidocaine Gel Depth: Down to and including healthy tissue, in the subcutaneous layer Percentage of wound debrided: 100 Instrument Used: 5mm curette Tissue Removed: subcutaneous tissue and slough Severity: Limited To Skin Breakdown Amount of bleeding with debridement: Mild Bleeding Controlled with: Pressure Patient tolerated procedure: Patient tolerated procedure well Assessment/Plan Active Problems (Last Reviewed 07/29/19 @ 00:16 by Tyron Yang MD) Chronic ulcer of buttock (Chronic) Skin ulcer of abdominal wall with fat layer exposed (Chronic) Diabetes (Chronic) Smoker (Chronic) Hidradenitis suppurativa (Chronic) abdominal wall skin crease bilateral inguinal/medial thighs Hidradenitis suppurativa of anus (Chronic) Assessment: 1. Hidradenitis abscess bilateral superior gluteal/perianal area. 2. Hidradenitis abdominal wall. 3. Nonhealing hidradenitis ulcer bilateral superior gluteal/perianal area. 4. Hidradenitis ulcer abdominal wall, healed. 5. Diabetes mellitus. 6. Smoker. 7. s/p surgery for surgical preparation abdominal wall with excisional debridement skin and subcutaneous tissue and f ascia necrotizing soft tissue hidradenitis infection (492 cm2) and abdominal panniculectomy. 8. s/p surgical preparation bilateral superior gluteal/perianal area with excision necrotizing hidradenitis abscess (143 cm2). 9. Hidradenitis bilateral inguinal and medial upper thigh areas, stable. Plan: The abdominal wall ulcer reopened at the last visit. Will continue to p lace collagen hydrogel to the area. Encouraged to massage the scarring with lotion where he is healed. The perianal ulcer continues to improve and will continue Laurel dressing changes daily. Wound culture from 07/29/19 showed Anaerobic cocci. Preop culture showed E. coli, Coag negative Staph, and Gram positive kaylah. Wound culture from 07/19/19 showed Streptococcus anginosus and Actinomyces meyeri. He was placed on Augmentin and has finished them. Prealbumin from 07/29/19 was 7.6. Encourage nutritional supplementation with protein to help the healing process. He had recent flare ups of hidradenitis in his bilateral inguinal and medial upper thigh areas and was placed on Doxycycline. The flare ups have responded to the antibiotic and are stable at this time. Encouraged him to stop smoking as this could be deleterious to his wound healing. Follow up one week. Code Visit [id number]: [id number] Steff subq tissue 20 sq cm/<
[2019-11-21 13:54] VITALS: BP 128/82; PULSE 106; RESP 18; BMI 35.2
--- NOTE | 2019-11-21 15:27 | PCM.WC.PN ---
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 Status: Chronic Current Visit: Yes Code(s): L98.492 - Non-pressure chronic ulcer of skin of other sites with fat layer exposed (3) Diabetes Status: Chronic Current Visit: Yes Code(s): E11.9 - Type 2 diabetes mellitus without complications (4) Smoker Status: Chronic Current Visit: Yes Code(s): F17.200 - Nicotine dependence, unspecified, uncomplicated (5) Hidradenitis suppurativa Status: Chronic Current Visit: Yes Code(s): L73.2 - Hidradenitis suppurativa Comment: abdominal wall skin crease bilateral inguinal/medial thighs (6) Hidradenitis suppurativa of anus Status: Chronic Current Visit: Yes Code(s): L73.2 - Hidradenitis suppurativa (7) Pain aggravated by sitting Status: Chronic Current Visit: Yes Code(s): R52 - Pain, unspecified Type of Wound Date of Service: 11/21/19 Chief Complaint: Nonhealing ulcers lower abdominal wall and bilateral superior gluteal/perianal areas. History of Wound: Surgery 07/29/19 - surgical preparation bilateral superior gluteal/perianal area with excision necrotizing hidradenitis abscess (143 cm2). Surgery 07/19/19 - surgical preparation abdominal wall with excisional debridement skin and subcutaneous tissue and fascia necrotizing soft tissue hidradenitis infection and abdominal pannculectomy. Wound Care - Collagen Hydrogel to abdominal wall. Laurel to bilateral superior gluteal/perianal area. Operative culture - Anaerobic cocci and preoperatively E coli, Coag negative Staph, and Gram positive kaylah. He was discharged on Augmentin and has finished them. Culture from 07/19/19 surgery showed Streptococcus anginosus and Actinomyces meyeri. Prealbumin from 07/29/19 was 7.6. Encourage nutritional supplementation with protein to help the healing process. Today he denies fever. His appetite is better. He has started to have intermittent flare ups in his bilateral inguinal and upper medial thigh areas that responded to Doxycycline. Progress of Wound: Lower abdominal wall ulcer improved and the bilateral superior gluteal/perianal ulcer is improved. - Physical Exam Vital Signs Temp Pulse Resp BP 98 F 106 H 18 128/82 H 11/14/19 11:05 11/21/19 13:54 11/21/19 13:54 11/21/19 13:54 General: Alert, Oriented x3, Cooperative HEENT: Atraumatic Oral: Moist Mucosa Lungs: Normal air movement Cardiovascular: Regular rate Abdomen: Soft Extremities: Capillary Refill Less than 3 Seconds Skin: Ulcer/ Wound - lower mid abdomen and sacral ulcer Wound Measurements and Assessment WC - Nurse 1 - General Ulcer Measurement Start: 11/14/19 11:05 Freq: Status: Active Protocol: Activity Type Activity Date Activity User E-Sign Co-Sign Detail Recorded Client Recorded Date Recorded By Document 11/21/19 13:54 BS [id number] 11/21/19 14:06 BS 11/21/19 13:54 Wound Center Nurse 1 [Ulcer Assessment] #4- ABDOMINAL CLUSTER -Combined with other wound No -Current Size (cm) - Length 0.2 -Current Size (cm) - Width 1.0 -Current Size (cm) - Depth 0.1 -Total Square Cm 0.20 -Temperature (Kassandra-wound Skin No Abnormality Appearance) (Pt Warm) -Tenderness on Palpation (Kassandra-wound No Skin Appearance) -Ulcer Cleansing Rinsed/ Irrigated with Saline -Foul Odor after Cleansing No -Anesthetic Used 4% Lidocaine Solution #2 Sacral -Combined with other wound No -Current Size (cm) - Length 3 -Current Size (cm) - Width 1.0 -Current Size (cm) - Depth 0.2 -Total Square Cm 3.0 -Temperature (Kassandra-wound Skin No Abnormality Appearance) (Pt Warm) -Tenderness on Palpation (Kassandra-wound Yes Skin Appearance) -Ulcer Cleansing Rinsed/ Irrigated with Saline -Foul Odor after Cleansing No -Anesthetic Used 4% Lidocaine Solution - Nurse 2 - General Ulcer CM Notes Start: 11/14/19 11:05 Freq: Status: Active Protocol: Activity Type Activity Date Activity User E-Sign Co-Sign Detail Recorded Client Recorded Date Recorded By Document 11/21/19 14:21 JF [id number] 11/21/19 14:28 JF 11/21/19 14:21 Wound Center Nurse 2 [Procedure/Treatment] #4- ABDOMINAL CLUSTER -Time 14:27 -Correct Patient Yes -Correct Side, Site, Position Yes -Correct Procedure Yes -Procedure Performed Yes -Type of Procedure Debridement -Clinical Debridement Subcutaneous -Post Debridement Size (cm) - Length 0.5 -Post Debridement Size (cm) - Width 1 -Post Debridement Size (cm) - Depth 0.2 -Total Square Cm 0.5 -Wound/Ulcer Outcome Not Healed -Ulcer Cleansing Rinsed/ Irrigated with Saline -Foul Odor after Cleansing No -Bioengineered Tissue No -Bleeding Controlled with Pressure -Offloading No -Treatment Response Procedure Tolerated Well #2 Sacral -Time 14:28 -Correct Patient Yes -Correct Side, Site, Position Yes -Correct Procedure Yes -Procedure Performed Yes -Type of Procedure Debridement -Clinical Debridement Subcutaneous -Post Debridement Size (cm) - Length 3.1 -Post Debridement Size (cm) - Width 0.5 -Post Debridement Size (cm) - Depth 0.3 -Total Square Cm 1.55 -Wound/Ulcer Outcome Not Healed -Ulcer Cleansing Rinsed/ Irrigated with Saline -Foul Odor after Cleansing No -Bioengineered Tissue No -Bleeding Controlled with Pressure -Offloading No -Treatment Response Procedure Tolerated Well [See Physician Procedure note for Specifics] Pain Scale: 0-10 Numeric [Pain] -Is Patient Pain Free? Yes Musculoskeletal: No Tenderness to Palpation of Joints or Extremities Neurological: Neuro grossly intact Psych/Mental Status: Normal Affect, Appropriate Debridement Note Post-Debridement Measurements/Treatment WC - Nurse 2 - General Ulcer CM Notes Start: 11/14/19 11:05 Freq: Status: Active Protocol: Activity Type Activity Date Activity User E-Sign Co-Sign Detail Recorded Client Recorded Date Recorded By Document 11/14/19 11:26 [id number] 11/14/19 11:29 Document 11/21/19 14:21 [id number] 11/21/19 14:28 11/14/19 11/21/19 11:26 14:21 Wound Center Nurse 2 #4- ABDOMINAL CLUSTER -Time 11:27 14:27 -Correct Patient Yes Yes -Correct Side, Site, Position Yes Yes -Correct Procedure Yes Yes -Procedure Performed Yes Yes -Type of Procedure Debridement Debridement -Clinical Debridement Subcutaneous Subcutaneous -Post Debridement Size (cm) - Length 0.5 0.5 -Post Debridement Size (cm) - Width 1.9 1 -Post Debridement Size (cm) - Depth 0.2 0.2 -Total Square Cm 0.95 0.5 -Wound/Ulcer Outcome Not Healed Not Healed -Ulcer Cleansing Rinsed/ Rinsed/ Irrigated with Irrigated with Saline Saline -Foul Odor after Cleansing No No -Bioengineered Tissue No No -Bleeding Controlled with Pressure Pressure -Offloading No No -Treatment Response Procedure Procedure Tolerated Well Tolerated Well #2 Sacral -Time 11:28 14:28 -Correct Patient Yes Yes -Correct Side, Site, Position Yes Yes -Correct Procedure Yes Yes -Procedure Performed Yes Yes -Type of Procedure Debridement Debridement -Clinical Debridement Subcutaneous Subcutaneous -Post Debridement Size (cm) - Length 3.1 3.1 -Post Debridement Size (cm) - Width 0.3 0.5 -Post Debridement Size (cm) - Depth 0.2 0.3 -Total Square Cm 0.93 1.55 -Wound/Ulcer Outcome Not Healed Not Healed -Ulcer Cleansing Rinsed/ Rinsed/ Irrigated with Irrigated with Saline Saline -Foul Odor after Cleansing No No -Bioengineered Tissue No No -Bleeding Controlled with Pressure Pressure -Offloading No No -Treatment Response Procedure Procedure Tolerated Well Tolerated Well Pain Scale: 0-10 Numeric Is Patient Pain Free? Yes Yes Wound debrided: sacral ulcer Type of Debridement: Excisional debridement Anesthesia Used: 5% Lidocaine Gel Depth: Down to and including healthy tissue, in the subcutaneous layer Percentage of wound debrided: 100 Instrument Used: 3mm curette Tissue Removed: subcutaneous tissue and slough Severity: Limited To Skin Breakdown Amount of bleeding with debridement: Mild Bleeding Controlled with: Pressure Patient tolerated procedure well - Additional Wound Wound debrided: lower mid abdominal ulcer Type of Debridement: Excisional debridement Anesthesia Used: 5% Lidocaine Gel Depth: Down to and including healthy tissue, in the subcutaneous layer Percentage of wound debrided: 100 Instrument Used: 3mm curette Tissue Removed: subcutaneous tissue and slough Severity: Limited To Skin Breakdown Amount of bleeding with debridement: Mild Bleeding Controlled with: Pressure Patient tolerated procedure: Patient tolerated procedure well Assessment/Plan Active Problems (Last Reviewed 07/29/19 @ 00:16 by Tyron Yang MD) Chronic ulcer of buttock (Chronic) Skin ulcer of abdominal wall with fat layer exposed (Chronic) Pain aggravated by sitting (Chronic) Diabetes (Chronic) Smoker (Chronic) Hidradenitis suppurativa (Chronic) abdominal wall skin crease bilateral inguinal/medial thighs Hidradenitis suppurativa of anus (Chronic) Assessment: 1. Hidradenitis abscess bilateral superior gluteal/perianal area. 2. Hidradenitis abdominal wall. 3. Nonhealing hidradenitis ulcer bilateral superior gluteal/perianal area. 4. Hidradenitis ulcer abdominal wall, healed. 5. Diabetes mellitus. 6. Smoker. 7. s/p surgery for surgical preparation abdominal wall with excisional debridement skin and subcutaneous tissue and fascia necrotizing soft tissue hidradenitis infection (492 cm2) and abdominal panniculectomy. 8. s/p surgical preparation bilateral superior gluteal/perianal area with excision necrotizing hidradenitis abscess (143 cm2). 9. Hidradenitis bilateral inguinal and medial upper thigh areas, stable. Plan: The abdominal wall ulcer reopened a couple weeks ago. Will continue to place collagen hydrogel to the area. Encouraged to massage the scarring with lotion where he is healed to help soften scarring. The perianal ulcer continues to improve and will continue Laurel dressing changes daily. It is almost healed. He is complaining of having pain with sitting. It typically starts after sitting for over 10 minutes. He states that it feels like he is sitting on a ball. He has been doing squats to see if it helps loosen up any of the muscles but it is not helping. He also states that his pain increases when he gets up from sitting, it is worse after sitting for longer periods of time. Will plan on referring him to PT. Will send him to [facility], since they are close to where he lives and they have someone who specializes in Pelvic floor therapy. Wound culture from 07/29/19 showed Anaerobic cocci. Preop culture showed E. coli, Coag negative Staph, and Gram positive kaylah. Wound culture from 07/19/19 showed Streptococcus anginosus and Actinomyces meyeri. He was placed on Augmentin and has finished them. Prealbumin from 07/29/19 was 7.6. Encourage nutritional supplementation with protein to help the healing process. He had recent flare ups of hidradenitis in his bilateral inguinal and medial upper thigh areas and was placed on Doxycycline. The flare ups have responded to the antibiotic and have improved, but he continues to get drainage, will renew Doxycycline. Encouraged him to stop smoking as this could be deleterious to his wound healing. Follow up one week.
[2019-11-28 15:19] VITALS: BP 134/78; PULSE 87; RESP 16; TEMP 36.6; BMI 35.2
--- NOTE | 2019-11-28 17:47 | PN.PCM_ITS ---
Type of Wound Date of Service: 11/28/19 Chief Complaint: Nonhealing ulcers lower abdominal wall and bilateral superior gluteal/perianal areas. History of Wound: Surgery 07/29/19 - surgical preparation bilateral superior gluteal/perianal area with excision necrotizing hidradenitis abscess (143 cm2). Surgery 07/19/19 - surgical preparation abdominal wall with excisional debridement skin and subcutaneous tissue and fascia necrotizing soft tissue hidradenitis infection and abdominal pannculectomy. Wound Care - Collagen Hydrogel to abdominal wall. Laurel to bilateral superior gluteal/perianal area. Operative culture - Anaerobic cocci and preoperatively E coli, Coag negative Staph, and Gram positive kaylah. He was discharged on Augmentin and has finished them. Culture from 07/19/19 surgery showed Streptococcus anginosus and Actinomyces meyeri. Prealbumin from 07/29/19 was 7.6. Encourage nutritional supplementation with protein to help the healing process. Today he denies fever. His appetite is better. He has started to have intermittent flare ups in his bilateral inguinal and upper medial thigh areas that responded to Doxycycline. He has complained about pelvic floor pain and was referred for pelvic floor therapy in [place]. Progress of Wound: Lower abdominal wall ulcer improved and the bilateral superior gluteal/perianal ulcer is unchanged. - Physical Exam Vital Signs Temp Pulse Resp BP 97.8 F 87 16 134/78 H 11/28/19 15:19 11/28/19 15:19 11/28/19 15:19 11/28/19 15:19 Wound Measurements and Assessment WC - Nurse 1 - General Ulcer Measurement Start: 11/14/19 11:05 Freq: Status: Active Protocol: Activity Type Activity Date Activity User E-Sign Co-Sign Detail Recorded Client Recorded Date Recorded By Document 11/28/19 15:19 MW [id number] 11/28/19 15:29 MW 11/28/19 15:19 Wound Center Nurse 1 [Ulcer Assessment] #4- ABDOMINAL CLUSTER -Current Size (cm) - Length 0.1 -Current Size (cm) - Width 0.1 -Current Size (cm) - Depth 0.1 -Total Square Cm 0.01 -Date of Last Picture (Recall this 11/28/19 field) -Photo Taken Yes -Epithelialization None Present -Tunneling No -Undermining/Tunneling No -Circular Undermining No -Classification - Thickness Full Thickness without Exposed Support Structure -Exudate Amt None Present -Wound Margin Flat & Intact -Granulation Amt None Present (0 %) -Granulation Quality N/A -Slough/Fibrin No -Necrosis Amt None Present (0 %) -Necrotic Tissue Type Adherent Slough -Structure Exposed None/Limited to Skin Breakdown -Texture (Kassandra-wound Skin Appearance) Assessed, Scarring -Moisture (Kassandra-wound Skin Appearance No Abnormality, ) Assessed -Color (Kassandra-wound Skin Appearance) No Abnormality, Assessed -Temperature (Kassandra-wound Skin No Abnormality Appearance) (Pt Warm) -Tenderness on Palpation (Kassandra-wound No Skin Appearance) -Ulcer Cleansing Rinsed/ Irrigated with Saline -Foul Odor after Cleansing No -Anesthetic Used 5% Lidocaine Gel #2 Sacral -Combined with other wound No -Current Size (cm) - Length 3.0 -Current Size (cm) - Width 0.5 -Current Size (cm) - Depth 0.3 -Total Square Cm 1.50 -Photo Taken No -Epithelialization None Present -Tunneling No -Undermining/Tunneling No -Circular Undermining No -Classification - Thickness Full Thickness without Exposed Support Structure -Exudate Type Serosanguineous -Wound Margin Indistinct, Non -Visible -Granulation Quality N/A -Slough/Fibrin No -Necrosis Amt Large (67-100%) -Necrotic Tissue Type Adherent Slough -Structure Exposed None/Limited to Skin Breakdown -Texture (Kassandra-wound Skin Appearance) Assessed, Scarring -Moisture (Kassandra-wound Skin Appearance Assessed, ) Weeping -Color (Kassandra-wound Skin Appearance) Assessed, Erythema -Temperature (Kassandra-wound Skin No Abnormality Appearance) (Pt Warm) -Tenderness on Palpation (Kassandra-wound No Skin Appearance) -Ulcer Cleansing Rinsed/ Irrigated with Saline -Foul Odor after Cleansing No -Anesthetic Used 5% Lidocaine Gel WC - Nurse 2 - General Ulcer CM Notes Start: 11/14/19 11:05 Freq: Status: Active Protocol: Activity Type Activity Date Activity User E-Sign Co-Sign Detail Recorded Client Recorded Date Recorded By Document 11/28/19 15:53 TONG [id number] 11/28/19 15:57 TONG 11/28/19 15:53 Wound Center Nurse 2 [Procedure/Treatment] #4- ABDOMINAL CLUSTER -Time 15:54 -Correct Patient Yes -Correct Side, Site, Position Yes -Correct Procedure Yes -Procedure Performed Yes -Type of Procedure Debridement -Clinical Debridement Subcutaneous -Post Debridement Size (cm) - Length 0.2 -Post Debridement Size (cm) - Width 0.5 -Post Debridement Size (cm) - Depth 0.1 -Total Square Cm 0.10 -Wound/Ulcer Outcome Not Healed -Ulcer Cleansing Rinsed/ Irrigated with Saline -Foul Odor after Cleansing No -Bioengineered Tissue No -Bleeding Controlled with Pressure -Offloading No -Treatment Response Procedure Tolerated Well #2 Sacral -Time 15:54 -Correct Patient Yes -Correct Side, Site, Position Yes -Correct Procedure Yes -Procedure Performed Yes -Type of Procedure Debridement -Clinical Debridement Subcutaneous -Post Debridement Size (cm) - Length 3.0 -Post Debridement Size (cm) - Width 0.6 -Post Debridement Size (cm) - Depth 0.3 -Total Square Cm 1.80 -Wound/Ulcer Outcome Not Healed -Ulcer Cleansing Rinsed/ Irrigated with Saline -Foul Odor after Cleansing No -Bioengineered Tissue No -Bleeding Controlled with Pressure -Offloading No -Treatment Response Procedure Tolerated Well [See Physician Procedure note for Specifics] Pain Scale: 0-10 Numeric [Pain] -Is Patient Pain Free? Yes Debridement Note Post-Debridement Measurements/Treatment WC - Nurse 2 - General Ulcer CM Notes Start: 11/14/19 11:05 Freq: Status: Active Protocol: Activity Type Activity Date Activity User E-Sign Co-Sign Detail Recorded Client Recorded Date Recorded By Document 11/14/19 11:26 [id number] 11/14/19 11:29 Document 11/21/19 14:21 [id number] 11/21/19 14:28 Document 11/28/19 15:53 [id number] 11/28/19 15:57 11/14/19 11/21/19 11/28/19 11:26 14:21 15:53 Wound Center Nurse 2 #4- ABDOMINAL CLUSTER -Time 11:27 14:27 15:54 -Correct Patient Yes Yes Yes -Correct Side, Site, Position Yes Yes Yes -Correct Procedure Yes Yes Yes -Procedure Performed Yes Yes Yes -Type of Procedure Debridement Debridement Debridement -Clinical Debridement Subcutaneous Subcutaneous Subcutaneous -Post Debridement Size (cm) - Length 0.5 0.5 0.2 -Post Debridement Size (cm) - Width 1.9 1 0.5 -Post Debridement Size (cm) - Depth 0.2 0.2 0.1 -Total Square Cm 0.95 0.5 0.10 -Wound/Ulcer Outcome Not Healed Not Healed Not Healed -Ulcer Cleansing Rinsed/ Rinsed/ Rinsed/ Irrigated with Irrigated with Irrigated with Saline Saline Saline -Foul Odor after Cleansing No No No -Bioengineered Tissue No No No -Bleeding Controlled with Pressure Pressure Pressure -Offloading No No No -Treatment Response Procedure Procedure Procedure Tolerated Well Tolerated Well Tolerated Well #2 Sacral -Time 11:28 14:28 15:54 -Correct Patient Yes Yes Yes -Correct Side, Site, Position Yes Yes Yes -Correct Procedure Yes Yes Yes -Procedure Performed Yes Yes Yes -Type of Procedure Debridement Debridement Debridement -Clinical Debridement Subcutaneous Subcutaneous Subcutaneous -Post Debridement Size (cm) - Length 3.1 3.1 3.0 -Post Debridement Size (cm) - Width 0.3 0.5 0.6 -Post Debridement Size (cm) - Depth 0.2 0.3 0.3 -Total Square Cm 0.93 1.55 1.80 -Wound/Ulcer Outcome Not Healed Not Healed Not Healed -Ulcer Cleansing Rinsed/ Rinsed/ Rinsed/ Irrigated with Irrigated with Irrigated with Saline Saline Saline -Foul Odor after Cleansing No No No -Bioengineered Tissue No No No -Bleeding Controlled with Pressure Pressure Pressure -Offloading No No No -Treatment Response Procedure Procedure Procedure Tolerated Well Tolerated Well Tolerated Well Pain Scale: 0-10 Numeric Is Patient Pain Free? Yes Yes Yes Wound debrided: #2 Bilateral superior gluteal/perianal area. Laterality: Not Applicable Wound Grade/Stage: 2. Type of Debridement: Excisional debridement Anesthesia Used: 4% Lidocaine Solution Depth: Down to and including healthy tissue, in the subcutaneous layer Percentage of wound debrided: 100 Instrument Used: 3mm curette Tissue Removed: subcutaneous tissue. Severity: Fat Layer Exposed Amount of bleeding with debridement: Mild Bleeding Controlled with: Pressure Patient tolerated procedure well - Additional Wound Wound debrided: #4 Lower abdominal wall. Laterality: Not Applicable Wound Grade/Stage: 2. Type of Debridement: Excisional debridement Anesthesia Used: 4% Lidocaine Solution Depth: Down to and including healthy tissue, in the subcutaneous layer Percentage of wound debrided: 100 Instrument Used: 3mm curette Tissue Removed: subcutaneous tissue. Severity: Fat Layer Exposed Amount of bleeding with debridement: Mild Bleeding Controlled with: Pressure Patient tolerated procedure: Patient tolerated procedure well Assessment/Plan Active Problems (Last Reviewed 07/29/19 @ 00:16 by Tyron Yang MD) Chronic ulcer of buttock (Chronic) Skin ulcer of abdominal wall with fat layer exposed (Chronic) Pain aggravated by sitting (Chronic) Diabetes (Chronic) Smoker (Chronic) Hidradenitis suppurativa (Chronic) abdominal wall skin crease bilateral inguinal/medial thighs Hidradenitis suppurativa of anus (Chronic) Assessment: 1. Hidradenitis abscess bilateral superior gluteal/perianal area. 2. Hidradenitis abdominal wall. 3. Nonhealing hidradenitis ulcer bilateral superior gluteal/perianal area. 4. Hidradenitis ulcer abdominal wall, was healed, and developed a small abrasion. 5. Diabetes mellitus. 6. Smoker. 7. s/p surgery for surgical preparation abdominal wall with excisional debr idement skin and subcutaneous tissue and fascia necrotizing soft tissue hidradenitis infection (492 cm2) and abdominal panniculectomy. 8. s/p surgical preparation bilateral superior gluteal/perianal area with excision necrotizing hidradenitis abscess (143 cm2). 9. Hidradenitis bilateral inguinal and medial upper thigh areas, stable. Plan: The abdominal wall ulcer was healed and has developed a small abrasion. Will start Laurel dressing changes there as well. The perianal ulcer has slowed down the healing process. Continue Laurel dressing changes daily. Wound c ulture from 07/29/19 showed Anaerobic cocci. Preop culture showed E. coli, Coag negative Staph, and Gram positive kaylah. Wound culture from 07/19/19 showed Streptococcus anginosus and Actinomyces meyeri. He was placed on Augmentin and has finished them. Prealbumin from 07/29/19 was 7.6. Encourage nutritional supplementation with protein to help the healing process. He had recent flare ups of hidradenitis in his bilateral inguinal and medial upper thigh areas and was placed on Doxycycline. The flare ups have responded to the antibiotic and are stable at this time. He has concomitant pelvic floor pain that he is scheduled to see a therapist in [place] for evaluation and treatment. The perianal ulcer's improvement has slowed. Recommend operative debridement and skin grafting. May use autograft or use an advanced product skin substitute graft. Surgery will be done under general anesthesia with a surgical observation overnight stay in the hospital. Tissue that is removed will be sent to Pathology for analysis to rule out carcinoma and to Microbiology for culture. A positive culture will necessitate antibiotic therapy. Patient was informed of the risks and complications of the procedure including alternatives to surgery. These were discussed with him personally. He voices understanding and wishes to proceed. Encouraged him to stop smoking as this could be deleterious to his wound healing. Follow up in 2 weeks. Code Visit [id number]: 21979 Steff subq tissue 20 sq cm/< - ICD-10 - L98.419, L98.492, L02.31, E65, L30.4, M79.89, E11.9, F17.200, L73.2
[2019-12-05 13:16] VITALS: BP 139/92; PULSE 87; RESP 16; TEMP 36.6; BMI 35.2
--- NOTE | 2019-12-05 14:51 | PCM.WC.PN ---
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 Status: Chronic Current Visit: Yes Code(s): L98.492 - Non-pressure chronic ulcer of skin of other sites with fat layer exposed (3) Diabetes Status: Chronic Current Visit: Yes Code(s): E11.9 - Type 2 diabetes mellitus without complications (4) Smoker Status: Chronic Current Visit: Yes Code(s): F17.200 - Nicotine dependence, unspecified, uncomplicated (5) Hidradenitis suppurativa Status: Chronic Current Visit: Yes Code(s): L73.2 - Hidradenitis suppurativa Comment: abdominal wall skin crease bilateral inguinal/medial thighs (6) Hidradenitis suppurativa of anus Status: Chronic Current Visit: Yes Code(s): L73.2 - Hidradenitis suppurativa (7) Pain aggravated by sitting Status: Chronic Current Visit: Yes Code(s): R52 - Pain, unspecified Type of Wound Date of Service: 12/05/19 Chief Complaint: Nonhealing ulcers lower abdominal wall and bilateral superior gluteal/perianal areas. History of Wound: Surgery 07/29/19 - surgical preparation bilateral superior gluteal/perianal area with excision necrotizing hidradenitis abscess (143 cm2). Surgery 07/19/19 - surgical preparation abdominal wall with excisional debridement skin and subcutaneous tissue and fascia necrotizing soft tissue hidradenitis infection and abdominal pannculectomy. Wound Care -Laurel to bilateral superior gluteal/perianal area. Operative culture - Anaerobic cocci and preoperatively E coli, Coag negative Staph, and Gram positive kaylah. He was discharged on Augmentin and has finished them. Culture from 07/19/19 surgery showed Streptococcus anginosus and Actinomyces meyeri. Wound culture from 11/28/2019 positive for Klebsiella pneumoniae sp pneum, Enterococcus faecalis, Staphylococcus epidermidis, Corynebacterium amycolatum. He was placed on Levaquin and Augmentin. Prealbumin from 07/29/19 was 7.6. Encourage nutritional supplementation with protein to help the healing process. Today he denies fever. His appetite is better. He has started to have intermittent flare ups in his bilateral inguinal and upper medial thigh areas that responded to Doxycycline. He has complained about pelvic floor pain and was referred for pelvic floor therapy in [place]. Progress of Wound: Lower abdominal wall ulcer has healed and the bilateral superior gluteal/perianal ulcer is unchanged. - Physical Exam Vital Signs Temp Pulse Resp BP 97.9 F 87 16 139/92 H 12/05/19 13:16 12/05/19 13:16 12/05/19 13:16 12/05/19 13:16 General: Alert, Oriented x3, Cooperative HEENT: Atraumatic Oral: Moist Mucosa Lungs: Normal air movement Cardiovascular: Regular rate Extremities: No edema, Capillary Refill Less than 3 Seconds Skin: Ulcer/ Wound - abdominal ulcer is healed, sacral ulcer Wound Measurements and Assessment WC - Nurse 1 - General Ulcer Measurement Start: 11/14/19 11:05 Freq: Status: Active Protocol: Activity Type Activity Date Activity User E-Sign Co-Sign Detail Recorded Client Recorded Date Recorded By Document 12/05/19 13:16 MW [id number] 12/05/19 13:24 MW 12/05/19 13:16 Wound Center Nurse 1 [Ulcer Assessment] #4- ABDOMINAL CLUSTER -Combined with other wound No -Current Size (cm) - Length 0.1 -Current Size (cm) - Width 0.1 -Current Size (cm) - Depth 0.1 -Total Square Cm 0.01 -Tunneling No -Undermining/Tunneling No -Circular Undermining No -Exudate Amt None Present -Wound Margin Flat & Intact -Granulation Amt Large (67-100%) -Granulation Quality [place] -Necrosis Amt None Present (0 %) -Structure Exposed N/A -Texture (Kassandra-wound Skin Appearance) Assessed, Scarring -Moisture (Kassandra-wound Skin Appearance Assessed ) -Color (Kassandra-wound Skin Appearance) Assessed -Temperature (Kassandra-wound Skin No Abnormality Appearance) (Pt Warm) -Tenderness on Palpation (Kassandra-wound No Skin Appearance) -Ulcer Cleansing Wound Cleanser -Foul Odor after Cleansing No #2 Sacral -Combined with other wound No -Current Size (cm) - Length 2.4 -Current Size (cm) - Width 1 -Current Size (cm) - Depth 0.2 -Total Square Cm 2.4 -Tunneling No -Undermining/Tunneling No -Circular Undermining No -Exudate Amt Small -Exudate Type Serosanguineous -Wound Margin Fibrotic Scar, Thickened Scar -Granulation Amt Large (67-100%) -Granulation Quality Red -Slough/Fibrin Yes -Necrosis Amt Small (1-33%) -Necrotic Tissue Type Adherent Slough -Structure Exposed N/A -Texture (Kassandra-wound Skin Appearance) Assessed -Moisture (Kassandra-wound Skin Appearance Assessed ) -Color (Kassandra-wound Skin Appearance) Assessed -Temperature (Kassandra-wound Skin No Abnormality Appearance) (Pt Warm) -Tenderness on Palpation (Kassandra-wound No Skin Appearance) -Ulcer Cleansing Wound Cleanser -Foul Odor after Cleansing No -Anesthetic Used 5% Lidocaine Gel WC - Nurse 2 - General Ulcer CM Notes Start: 11/14/19 11:05 Freq: Status: Active Protocol: Activity Type Activity Date Activity User E-Sign Co-Sign Detail Recorded Client Recorded Date Recorded By Document 12/05/19 13:47 TONG [id number] 12/05/19 13:52 TONG 12/05/19 13:47 Wound Center Nurse 2 [Procedure/Treatment] #4- ABDOMINAL CLUSTER -Time 13:51 -Correct Patient No -Correct Side, Site, Position No -Correct Procedure No -Procedure Performed No -Post Debridement Size (cm) - Length 0 -Post Debridement Size (cm) - Width 0 -Post Debridement Size (cm) - Depth 0 -Total Square Cm 0 -Wound/Ulcer Outcome Healed- Epithelialized -Ulcer Cleansing Rinsed/ Irrigated with Saline -Foul Odor after Cleansing No -Bioengineered Tissue No -Bleeding Controlled with Pressure -Offloading No #2 Sacral -Time 13:51 -Correct Patient Yes -Correct Side, Site, Position Yes -Correct Procedure Yes -Procedure Performed Yes -Type of Procedure Debridement -Clinical Debridement Subcutaneous -Post Debridement Size (cm) - Length 2.7 -Post Debridement Size (cm) - Width 1 -Post Debridement Size (cm) - Depth 0.3 -Total Square Cm 2.7 -Wound/Ulcer Outcome Not Healed -Ulcer Cleansing Rinsed/ Irrigated with Saline -Foul Odor after Cleansing No -Bioengineered Tissue No -Bleeding Controlled with Pressure -Offloading No -Treatment Response Procedure Tolerated Well [See Physician Procedure note for Specifics] Pain Scale: 0-10 Numeric [Pain] -Is Patient Pain Free? Yes Musculoskeletal: No Muscle Wasting Neurological: Neuro grossly intact Psych/Mental Status: Normal Affect, Appropriate Debridement Note Post-Debridement Measurements/Treatment WC - Nurse 2 - General Ulcer CM Notes Start: 11/14/19 11:05 Freq: Status: Active Protocol: Activity Type Activity Date Activity User E-Sign Co-Sign Detail Recorded Client Recorded Date Recorded By Document 11/14/19 11:26 [id number] 11/14/19 11:29 Document 11/21/19 14:21 [id number] 11/21/19 14:28 Document 11/28/19 15:53 [email or web address] 11/28/19 15:57 Document 12/05/19 13:47 [id number] 12/05/19 13:52 11/14/19 11/21/19 11/28/19 11:26 14:21 15:53 Wound Center Nurse 2 #4- ABDOMINAL CLUSTER -Time 11: 14:27 15:54 -Correct Patient Yes Yes Yes -Correct Side, Site, Position Yes Yes Yes -Correct Procedure Yes Yes Yes -Procedure Performed Yes Yes Yes -Type of Procedure Debridement Debridement Debridement -Clinical Debridement Subcutaneous Subcutaneous Subcutaneous -Post Debridement Size (cm) - Length 0.5 0.5 0.2 -Post Debridement Size (cm) - Width 1.9 1 0.5 -Post Debridement Size (cm) - Depth 0.2 0.2 0.1 -Total Square Cm 0.95 0.5 0.10 -Wound/Ulcer Outcome Not Healed Not Healed Not Healed -Ulcer Cleansing Rinsed/ Rinsed/ Rinsed/ Irrigated with Irrigated with Irrigated with Saline Saline Saline -Foul Odor after Cleansing No No No -Bioengineered Tissue No No No -Bleeding Controlled with Pressure Pressure Pressure -Offloading No No No -Treatment Response Procedure Procedure Procedure Tolerated Well Tolerated Well Tolerated Well #2 Sacral -Time 11: 14:28 15:54 -Correct Patient Yes Yes Yes -Correct Side, Site, Position Yes Yes Yes -Correct Procedure Yes Yes Yes -Procedure Performed Yes Yes Yes -Type of Procedure Debridement Debridement Debridement -Clinical Debridement Subcutaneous Subcutaneous Subcutaneous -Post Debridement Size (cm) - Length 3.1 3.1 3.0 -Post Debridement Size (cm) - Width 0.3 0.5 0.6 -Post Debridement Size (cm) - Depth 0.2 0.3 0.3 -Total Square Cm 0.93 1.55 1.80 -Wound/Ulcer Outcome Not Healed Not Healed Not Healed -Ulcer Cleansing Rinsed/ Rinsed/ Rinsed/ Irrigated with Irrigated with Irrigated with Saline Saline Saline -Foul Odor after Cleansing No No No -Bioengineered Tissue No No No -Bleeding Controlled with Pressure Pressure Pressure -Offloading No No No -Treatment Response Procedure Procedure Procedure Tolerated Well Tolerated Well Tolerated Well Pain Scale: 0-10 Numeric Is Patient Pain Free? Yes Yes Yes 12/05/19 13:47 Wound Center Nurse 2 #4- ABDOMINAL CLUSTER -Time 13:51 -Correct Patient No -Correct Side, Site, Position No -Correct Procedure No -Procedure Performed No -Type of Procedure -Clinical Debridement -Post Debridement Size (cm) - Length 0 -Post Debridement Size (cm) - Width 0 -Post Debridement Size (cm) - Depth 0 -Total Square Cm 0 -Wound/Ulcer Outcome Healed- Epithelialized -Ulcer Cleansing Rinsed/ Irrigated with Saline -Foul Odor after Cleansing No -Bioengineered Tissue No -Bleeding Controlled with Pressure -Offloading No -Treatment Response #2 Sacral -Time 13:51 -Correct Patient Yes -Correct Side, Site, Position Yes -Correct Procedure Yes -Procedure Performed Yes -Type of Procedure Debridement -Clinical Debridement Subcutaneous -Post Debridement Size (cm) - Length 2.7 -Post Debridement Size (cm) - Width 1 -Post Debridement Size (cm) - Depth 0.3 -Total Square Cm 2.7 -Wound/Ulcer Outcome Not Healed -Ulcer Cleansing Rinsed/ Irrigated with Saline -Foul Odor after Cleansing No -Bioengineered Tissue No -Bleeding Controlled with Pressure -Offloading No -Treatment Response Procedure Tolerated Well Pain Scale: 0-10 Numeric Is Patient Pain Free? Yes Wound debrided: Sacral ulcer Type of Debridement: Excisional debridement Anesthesia Used: 5% Lidocaine Gel Depth: Down to and including healthy tissue, in the subcutaneous layer Percentage of wound debrided: 100 Instrument Used: 7mm curette Tissue Removed: Subcutaneous tissue and slough Severity: Fat Layer Exposed Amount of bleeding with debridement: None Bleeding Controlled with: Compression and gauze Patient tolerated procedure well Assessment/Plan Active Problems (Last Reviewed 07/29/19 @ 00:16 by Tyron Yang MD) Chronic ulcer of buttock (Chronic) Skin ulcer of abdominal wall with fat layer exposed (Chronic) Pain aggravated by sitting (Chronic) Diabetes (Chronic) Smoker (Chronic) Hidradenitis suppurativa (Chronic) abdominal wall skin crease bilateral inguinal/medial thighs Hidradenitis suppurativa of anus (Chronic) Assessment: 1. Hidradenitis abscess bilateral superior gluteal/perianal area. 2. Hidradenitis abdominal wall. 3. Nonhealing hidradenitis ulcer bilateral superior gluteal/perianal area. 4. Hidradenitis ulcer abdominal wall, was healed, and developed a small abrasion. 5. Diabetes mellitus. 6. Smoker. 7. s/p surgery for surgical preparation abdominal wall with excisional debridement skin and subcutaneous tissue and fascia necrotizing soft tissue hidradenitis infection (492 cm2) and abdominal panniculectomy. 8. s/p surgical preparation bilateral superior gluteal/perianal area with excision necrotizing hidradenitis abscess (143 cm2). 9. Hidradenitis bilateral inguinal and medial upper thigh areas, stable. Plan: The abdominal wall ulcer is healed. The perianal ulcer has slowed down the healing process. Continue Laurel dressing changes daily. Wound culture from 07/29/19 showed Anaerobic cocci. Preop culture showed E. coli, Coag negative Staph, and Gram positive kaylah. Wound culture from 07/19/19 showed Streptococcus anginosus and Actinomyces meyeri. Wound culture from 11/28/2019 Klebsiella pneumoniae sp pneum, Enterococcus faecalis, Staphylococcus epidermidis, Corynebacterium amycolatum. He was placed on Levaquin and Augmetin. Prealbumin from 07/29/19 was 7.6. Encourage nutritional supplementation with protein to help the healing process. He had recent flare ups of hidradenitis in his bilateral inguinal and medial upper thigh areas and was placed on Doxycycline. The flare ups have responded to the antibiotic and are stable at this time. He has concomitant pelvic floor pain that he is scheduled to see a therapist in [place] for evaluation and treatment. The perianal ulcer's improvement has slowed. Recommend operative debridement and skin grafting. May use autograft or use an advanced product skin substitute graft. Surgery will be done under general anesthesia with a surgical observation overnight stay in the hospital. Tissue that is removed will be sent to Pathology for analysis to rule out carcinoma and to Microbiology for culture. A positive culture will necessitate antibiotic therapy. Patient was informed of the risks and complications of the procedure including alternatives to surgery. These were discussed with him personally. He voices understanding and wishes to proceed. Encouraged him to stop smoking as this could be deleterious to his wound healing. Follow up in 2 weeks. Code Visit [id number]: [id number] Steff subq tissue 20 sq cm/<
== END 2019-12-09 23:59 ==
LOC: WC 13:15
PROVIDERS: Family Provider Internal Medicine; PCP Internal Medicine; Referring Provider Nurse Practitioner Family; Visit Provider Nurse Practitioner Family
DX: L73.2 Hidradenitis suppurativa (principal); L98.492 Non-pressure chronic ulcer of skin of other sites with fat layer exposed; F17.200 Nicotine dependence, unspecified, uncomplicated; L98.491 Non-pressure chronic ulcer of skin of other sites limited to breakdown of skin; E11.9 Type 2 diabetes mellitus without complications
CPT/HCPCS: 11042; 87070; 87075; 87077; 87186; 87205

== ENCOUNTER 2019-12-26 13:45 | Outpatient (RCR) | payer OTHER, SELFPAY ==
[2019-12-10 00:40] VITALS: BP 139/92; PULSE 87; RESP 16; TEMP 36.6
[2019-12-19 13:26] VITALS: BP 140/80; PULSE 87; RESP 18; TEMP 36.3; BMI 35.2
--- NOTE | 2019-12-19 16:24 | PCM.WC.PN ---
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: Chronic Code(s): L98.492 - Non-pressure chronic ulcer of skin of other sites with fat layer exposed (3) Pain aggravated by sitting Status: Chronic Code(s): R52 - Pain, unspecified (4) Diabetes Status: Chronic Code(s): E11.9 - Type 2 diabetes mellitus without complications (5) Smoker Status: Chronic Code(s): F17.200 - Nicotine dependence, unspecified, uncomplicated (6) Hidradenitis suppurativa Status: Chronic Code(s): L73.2 - Hidradenitis suppurativa Comment: abdominal wall skin crease bilateral inguinal/medial thighs Type of Wound Date of Service: 12/19/19 Chief Complaint: Nonhealing ulcers lower abdominal wall and bilateral superior gluteal/perianal areas. History of Wound: Surgery 07/29/19 - surgical preparation bilateral superior gluteal/perianal area with excision necrotizing hidradenitis abscess (143 cm2). Surgery 07/19/19 - surgical preparation abdominal wall with excisional debridement skin and subcutaneous tissue and fascia necrotizing soft tissue hidradenitis infection and abdominal pannculectomy. Wound Care -Collagen hydrogel to bilateral superior gluteal/perianal area and the reopened abdominal area. Operative culture - Anaerobic cocci and preoperatively E coli, Coag negative Staph, and Gram positive kaylah. He was discharged on Augmentin and has finished them. Culture from 07/19/19 surgery showed Streptococcus anginosus and Actinomyces meyeri. Wound culture from 11/28/2019 positive for Klebsiella pneumoniae sp pneum, Enterococcus faecalis, Staphylococcus epidermidis, Corynebacterium amycolatum. He was placed on Levaquin and Augmentin. Prealbumin from 07/29/19 was 7.6. Encourage nutritional supplementation with protein to help the healing process. Today he denies fever. His appetite is better. He has started to have intermittent flare ups in his bilateral inguinal and upper medial thigh areas that responded to Doxycycline. He has complained about pelvic floor pain and was referred for pelvic floor therapy in [place] which he starts on 12/27/19. Progress of Wound: Lower abdominal wall ulcer has reopened in the center and the bilateral superior gluteal/perianal ulcer is unchanged. - Physical Exam Vital Signs Temp Pulse Resp BP 97.4 F L 87 18 140/80 H 12/19/19 13:26 12/19/19 13:26 12/19/19 13:12/19/19 13:26 General: Alert, Oriented x3, Cooperative HEENT: Atraumatic Lungs: Normal air movement Cardiovascular: Regular rate Abdomen: Soft Extremities: No edema, Capillary Refill Less than 3 Seconds Skin: Ulcer/ Wound - bilateral kassandra anal ulcer and lower abdominal incision reopened Wound Measurements and Assessment WC - Nurse 1 - General Ulcer Measurement Start: 12/19/19 13:25 Freq: Status: Active Protocol: Activity Type Activity Date Activity User E-Sign Co-Sign Detail Recorded Client Recorded Date Recorded By Document 12/19/19 13:26 RB [id number] 12/19/19 13:33 RB 12/19/19 13:26 Wound Center Nurse 1 [Ulcer Assessment] 5. lower mid abd -Combined with other wound No -Current Size (cm) - Length 0.6 -Current Size (cm) - Width 1.2 -Current Size (cm) - Depth 0.2 -Total Square Cm 0.72 -Tunneling No -Undermining/Tunneling No -Circular Undermining No -Exudate Amt Small -Exudate Type Serosanguineous -Wound Margin Flat & Intact -Granulation Amt Large (67-100%) -Granulation Quality [place] -Slough/Fibrin Yes -Necrosis Amt Small (1-33%) -Necrotic Tissue Type Adherent Slough -Structure Exposed N/A -Texture (Kassandra-wound Skin Appearance) Assessed -Moisture (Kassandra-wound Skin Appearance Assessed ) -Color (Kassandra-wound Skin Appearance) Assessed -Temperature (Kassandra-wound Skin No Abnormality Appearance) (Pt Warm) -Tenderness on Palpation (Kassandra-wound No Skin Appearance) -Ulcer Cleansing Wound Cleanser -Foul Odor after Cleansing No -Anesthetic Used 5% Lidocaine Gel #2 Sacral -Combined with other wound No -Current Size (cm) - Length 2 -Current Size (cm) - Width 0.6 -Current Size (cm) - Depth 0.2 -Total Square Cm 1.2 -Tunneling No -Undermining/Tunneling No -Circular Undermining No -Exudate Amt Small -Exudate Type Serosanguineous -Wound Margin Flat & Intact -Granulation Amt Large (67-100%) -Granulation Quality [place] -Slough/Fibrin Yes -Necrosis Amt Small (1-33%) -Necrotic Tissue Type Adherent Slough -Structure Exposed N/A -Texture (Kassandra-wound Skin Appearance) Scarring -Moisture (Kassandra-wound Skin Appearance Maceration ) -Color (Kassandra-wound Skin Appearance) Assessed -Temperature (Kassandra-wound Skin No Abnormality Appearance) (Pt Warm) -Tenderness on Palpation (Kassandra-wound No Skin Appearance) -Ulcer Cleansing Wound Cleanser -Foul Odor after Cleansing No -Anesthetic Used 5% Lidocaine Gel WC - Nurse 2 - General Ulcer CM Notes Start: 12/19/19 13:25 Freq: Status: Active Protocol: Activity Type Activity Date Activity User E-Sign Co-Sign Detail Recorded Client Recorded Date Recorded By Document 12/19/19 13:46 TONG [id number] 12/19/19 13:50 TONG 12/19/19 13:46 Wound Center Nurse 2 [Procedure/Treatment] 5. lower mid abd -Time 13:47 -Correct Patient Yes -Correct Side, Site, Position Yes -Correct Procedure Yes -Procedure Performed Yes -Type of Procedure Debridement -Clinical Debridement Subcutaneous -Post Debridement Size (cm) - Length 0.7 -Post Debridement Size (cm) - Width 1.2 -Post Debridement Size (cm) - Depth 0.2 -Total Square Cm 0.84 -Wound/Ulcer Outcome Not Healed -Ulcer Cleansing Rinsed/ Irrigated with Saline -Foul Odor after Cleansing No -Bioengineered Tissue No -Bleeding Controlled with Pressure -Offloading No -Treatment Response Procedure Tolerated Well #2 Sacral -Time 13:48 -Correct Patient Yes -Correct Side, Site, Position Yes -Correct Procedure Yes -Procedure Performed Yes -Type of Procedure Debridement -Clinical Debridement Subcutaneous -Post Debridement Size (cm) - Length 2.3 -Post Debridement Size (cm) - Width 0.9 -Post Debridement Size (cm) - Depth 0.3 -Total Square Cm 2.07 -Wound/Ulcer Outcome Not Healed -Ulcer Cleansing Rinsed/ Irrigated with Saline -Foul Odor after Cleansing No -Bioengineered Tissue No -Bleeding Controlled with Pressure -Offloading No -Treatment Response Procedure Tolerated Well [See Physician Procedure note for Specifics] Pain Scale: 0-10 Numeric [Pain] -Is Patient Pain Free? Yes Musculoskeletal: No Tenderness to Palpation of Joints or Extremities Neurological: Neuro grossly intact Psych/Mental Status: Normal Affect, Appropriate Debridement Note Post-Debridement Measurements/Treatment WC - Nurse 2 - General Ulcer CM Notes Start: 12/19/19 13:25 Freq: Status: Active Protocol: Activity Type Activity Date Activity User E-Sign Co-Sign Detail Recorded Client Recorded Date Recorded By Document 12/19/19 13:46 TONG [id number] 12/19/19 13:50 TONG 12/19/19 13:46 Wound Center Nurse 2 5. lower mid abd -Time 13:47 -Correct Patient Yes -Correct Side, Site, Position Yes -Correct Procedure Yes -Procedure Performed Yes -Type of Procedure Debridement -Clinical Debridement Subcutaneous -Post Debridement Size (cm) - Length 0.7 -Post Debridement Size (cm) - Width 1.2 -Post Debridement Size (cm) - Depth 0.2 -Total Square Cm 0.84 -Wound/Ulcer Outcome Not Healed -Ulcer Cleansing Rinsed/ Irrigated with Saline -Foul Odor after Cleansing No -Bioengineered Tissue No -Bleeding Controlled with Pressure -Offloading No -Treatment Response Procedure Tolerated Well #2 Sacral -Time 13:48 -Correct Patient Yes -Correct Side, Site, Position Yes -Correct Procedure Yes -Procedure Performed Yes -Type of Procedure Debridement -Clinical Debridement Subcutaneous -Post Debridement Size (cm) - Length 2.3 -Post Debridement Size (cm) - Width 0.9 -Post Debridement Size (cm) - Depth 0.3 -Total Square Cm 2.07 -Wound/Ulcer Outcome Not Healed -Ulcer Cleansing Rinsed/ Irrigated with Saline -Foul Odor after Cleansing No -Bioengineered Tissue No -Bleeding Controlled with Pressure -Offloading No -Treatment Response Procedure Tolerated Well Pain Scale: 0-10 Numeric Is Patient Pain Free? Yes Wound debrided: center lower abdominal ulcer Type of Debridement: Excisional debridement Anesthesia Used: 5% Lidocaine Gel Depth: Down to and including healthy tissue, in the subcutaneous layer Percentage of wound debrided: 100 Instrument Used: 3mm curette Tissue Removed: subcutaneous tissue and slough Severity: Limited To Skin Breakdown Amount of bleeding with debridement: Mild Bleeding Controlled with: Pressure Patient tolerated procedure well - Additional Wound Wound debrided: bilateral kassandra anal ulcer Type of Debridement: Excisional debridement Anesthesia Used: 4% Lidocaine Solution, 5% Lidocaine Gel Depth: Down to and including healthy tissue, in the subcutaneous layer Percentage of wound debrided: 100 Instrument Used: 5mm curette Tissue Removed: subcutaneous tissue and slough Severity: Fat Layer Exposed Amount of bleeding with debridement: Mild Bleeding Controlled with: Pressure Patient tolerated procedure: Patient tolerated procedure well Assessment/Plan Assessment: 1. Hidradenitis abscess bilateral superior gluteal/perianal area. 2. Hidradenitis abdominal wall. 3. Nonhealing hidradenitis ulcer bilateral superior gluteal/perianal area. 4. Hidradenitis ulcer abdominal wall, was healed, and developed a small abrasion. 5. Diabetes mellitus. 6. Smoker. 7. s/p surgery for surgical preparation abdominal wall with excisional debridement skin and subcutaneous tissue and fascia necrotizing soft tissue hidradenitis infection (492 cm2) and abdominal panniculectomy. 8. s/p surgical preparation bilateral superior gluteal/perianal area with excision necrotizing hidradenitis abscess (143 cm2). 9. Hidradenitis bilateral inguinal and medial upper thigh areas, stable. Plan: The abdominal wall ulcer has reopened. The perianal ulcer has slowed down the healing process. Stop [place] dressing changes and start Collagen hydrogel to both ulcers daily. Wound culture from 07/29/19 showed Anaerobic cocci. Preop culture showed E. coli, Coag negative Staph, and Gram positive kaylah. Wound culture from 07/19/19 showed Streptococcus anginosus and Actinomyces meyeri. Wound culture from 11/28/2019 Klebsiella pneumoniae sp pneum, Enterococcus faecalis, Staphylococcus epidermidis, Corynebacterium amycolatum. He was placed on Levaquin and Augmetin. Prealbumin from 07/29/19 was 7.6. Encourage nutritional supplementation with protein to help the healing process. He had recent flare ups of hidradenitis in his bilateral inguinal and medial upper thigh areas and was placed on Doxycycline. The flare ups have responded to the antibiotic and are stable at this time. He has concomitant pelvic floor pain that he is scheduled to see a therapist in [place] for evaluation and treatment on 12/27/19. The perianal ulcer's improvement has slowed. Recommend operative debridement and skin grafting. May use autograft or use an advanced product skin substitute graft. Surgery will be done under general anesthesia with a surgical observation overnight stay in the hospital. Tissue that is removed will be sent to Pathology for analysis to rule out carcinoma and to Microbiology for culture. A positive culture will necessitate antibiotic therapy. Patient was informed of the risks and complications of the procedure including alternatives to surgery. These were discussed with him personally. He voices understanding and wishes to proceed. Encouraged him to stop smoking as this could be deleterious to his wound healing. Follow up in 1 week. Code Visit [id number]: [id number] Steff subq tissue 20 sq cm/<
[2019-12-26 13:50] VITALS: BP 127/80; PULSE 87; RESP 18; TEMP 37.1; BMI 35.2
--- NOTE | 2019-12-26 14:48 | PCM.WC.PN ---
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 Status: Chronic Current Visit: Yes Code(s): L98.492 - Non-pressure chronic ulcer of skin of other sites with fat layer exposed (3) Pain aggravated by sitting Status: Chronic Current Visit: Yes Code(s): R52 - Pain, unspecified (4) Diabetes Status: Chronic Current Visit: Yes Code(s): E11.9 - Type 2 diabetes mellitus without complications (5) Smoker Status: Chronic Current Visit: Yes Code(s): F17.200 - Nicotine dependence, unspecified, uncomplicated (6) Hidradenitis suppurativa Status: Chronic Current Visit: Yes Code(s): L73.2 - Hidradenitis suppurativa Comment: abdominal wall skin crease bilateral inguinal/medial thighs Type of Wound Date of Service: 12/26/19 Chief Complaint: Nonhealing ulcers lower abdominal wall and bilateral superior gluteal/perianal areas. History of Wound: Surgery 07/29/19 - surgical preparation bilateral superior gluteal/perianal area with excision necrotizing hidradenitis abscess (143 cm2). Surgery 07/19/19 - surgical preparation abdominal wall with excisional debridement skin and subcutaneous tissue and fascia necrotizing soft tissue hidradenitis infection and abdominal pannculectomy. Wound Care -Collagen hydrogel to bilateral superior gluteal/perianal area and the reopened abdominal area. Operative culture - Anaerobic cocci and preoperatively E coli, Coag negative Staph, and Gram positive kaylah. He was discharged on Augmentin and has finished them. Culture from 07/19/19 surgery showed Streptococcus anginosus and Actinomyces meyeri. Wound culture from 11/28/2019 positive for Klebsiella pneumoniae sp pneum, Enterococcus faecalis, Staphylococcus epidermidis, Corynebacterium amycolatum. He was placed on Levaquin and Augmentin. Prealbumin from 07/29/19 was 7.6. Encourage nutritional supplementation with protein to help the healing process. He has started to have intermittent flare ups in his bilateral inguinal and upper medial thigh areas that responded to Doxycycline. He has complained about pelvic floor pain and was referred for pelvic floor therapy in [place] which he starts on 12/27/19. He is scheduled for surgery on 01/05/20 for skin graft of his sacral ulcer. Today he denies fever. His appetite is better. Progress of Wound: Lower abdominal wall ulcer remains opened in the center and the bilateral superior gluteal/perianal ulcer is unchanged. - Physical Exam Vital Signs Temp Pulse Resp BP 98.7 F 87 18 127/80 H 12/26/19 13:50 12/26/19 13:50 12/26/19 13:50 12/26/19 13:50 General: Alert, Oriented x3, Cooperative HEENT: Atraumatic Oral: Moist Mucosa Lungs: Normal air movement Cardiovascular: Regular rate Abdomen: Soft Extremities: Capillary Refill Less than 3 Seconds Skin: Ulcer/ Wound - Mid abdminal incision has a small opening and sacral ulcer Wound Measurements and Assessment WC - Nurse 1 - General Ulcer Measurement Start: 12/19/19 13:25 Freq: Status: Active Protocol: Activity Type Activity Date Activity User E-Sign Co-Sign Detail Recorded Client Recorded Date Recorded By Document 12/26/19 13:50 DL [id number] 12/26/19 13:57 DL 12/26/19 13:50 Wound Center Nurse 1 [Ulcer Assessment] 5. lower mid abd -Current Size (cm) - Length 0.4 -Current Size (cm) - Width 2.2 -Current Size (cm) - Depth 0.2 -Total Square Cm 0.88 -Photo Taken No -Exudate Amt Small -Exudate Type Serosanguineous -Wound Margin Distinct, Outline Attached -Granulation Amt Small (1-33%) -Granulation Quality [place] -Necrosis Amt Small (1-33%) -Necrotic Tissue Type Adherent Slough -Structure Exposed N/A -Texture (Kassandra-wound Skin Appearance) Scarring -Moisture (Kassandra-wound Skin Appearance Maceration ) -Color (Kassandra-wound Skin Appearance) Rubor -Temperature (Kassandra-wound Skin No Abnormality Appearance) (Pt Warm) -Tenderness on Palpation (Kassandra-wound No Skin Appearance) -Ulcer Cleansing Rinsed/ Irrigated with Saline -Foul Odor after Cleansing No -Anesthetic Used 4% Lidocaine Solution #2 Sacral -Current Size (cm) - Length 2.7 -Current Size (cm) - Width 0.6 -Current Size (cm) - Depth 0.2 -Total Square Cm 1.62 -Photo Taken No -Exudate Amt Small -Exudate Type Serosanguineous -Wound Margin Distinct, Outline Attached -Granulation Amt Large (67-100%) -Granulation Quality [place] -Necrosis Amt Small (1-33%) -Necrotic Tissue Type Adherent Slough -Structure Exposed N/A -Texture (Kassandra-wound Skin Appearance) Scarring -Moisture (Kassandra-wound Skin Appearance No Abnormality ) -Color (Kassandra-wound Skin Appearance) Rubor -Ulcer Cleansing Rinsed/ Irrigated with Saline -Foul Odor after Cleansing No -Anesthetic Used 4% Lidocaine Solution WC - Nurse 2 - General Ulcer CM Notes Start: 12/19/19 13:25 Freq: Status: Active Protocol: Activity Type Activity Date Activity User E-Sign Co-Sign Detail Recorded Client Recorded Date Recorded By Document 12/26/19 14:16 [id number] 12/26/19 14:17 TONG 12/26/19 14:16 Wound Center Nurse 2 [Procedure/Treatment] 5. lower mid abd -Time 14:16 -Correct Patient Yes -Correct Side, Site, Position Yes -Correct Procedure Yes -Procedure Performed Yes -Type of Procedure Debridement -Clinical Debridement Subcutaneous -Post Debridement Size (cm) - Length 0.5 -Post Debridement Size (cm) - Width 0.8 -Post Debridement Size (cm) - Depth 0.2 -Total Square Cm 0.40 -Wound/Ulcer Outcome Not Healed -Ulcer Cleansing Rinsed/ Irrigated with Saline -Foul Odor after Cleansing No -Bioengineered Tissue No -Bleeding Controlled with Pressure -Offloading No -Treatment Response Procedure Tolerated Well #2 Sacral -Time 14:17 -Correct Patient Yes -Correct Side, Site, Position Yes -Correct Procedure Yes -Procedure Performed Yes -Type of Procedure Debridement -Clinical Debridement Subcutaneous -Post Debridement Size (cm) - Length 1.7 -Post Debridement Size (cm) - Width 0.5 -Post Debridement Size (cm) - Depth 0.3 -Total Square Cm 0.85 -Wound/Ulcer Outcome Not Healed -Ulcer Cleansing Rinsed/ Irrigated with Saline -Foul Odor after Cleansing No -Bioengineered Tissue No -Bleeding Controlled with Pressure -Offloading No -Treatment Response Procedure Tolerated Well [See Physician Procedure note for Specifics] Pain Scale: 0-10 Numeric [Pain] -Is Patient Pain Free? Yes Musculoskeletal: No Tenderness to Palpation of Joints or Extremities Neurological: Neuro grossly intact Psych/Mental Status: Normal Affect, Appropriate Debridement Note Post-Debridement Measurements/Treatment WC - Nurse 2 - General Ulcer CM Notes Start: 12/19/19 13:25 Freq: Status: Active Protocol: Activity Type Activity Date Activity User E-Sign Co-Sign Detail Recorded Client Recorded Date Recorded By Document 12/19/19 13:46 [id number] 12/19/19 13:50 Document 12/26/19 14:16 [id number] 12/26/19 14:17 12/19/19 12/26/19 13:46 14:16 Wound Center Nurse 2 5. lower mid abd -Time 13:47 14:16 -Correct Patient Yes Yes -Correct Side, Site, Position Yes Yes -Correct Procedure Yes Yes -Procedure Performed Yes Yes -Type of Procedure Debridement Debridement -Clinical Debridement Subcutaneous Subcutaneous -Post Debridement Size (cm) - Length 0.7 0.5 -Post Debridement Size (cm) - Width 1.2 0.8 -Post Debridement Size (cm) - Depth 0.2 0.2 -Total Square Cm 0.84 0.40 -Wound/Ulcer Outcome Not Healed Not Healed -Ulcer Cleansing Rinsed/ Rinsed/ Irrigated with Irrigated with Saline Saline -Foul Odor after Cleansing No No -Bioengineered Tissue No No -Bleeding Controlled with Pressure Pressure -Offloading No No -Treatment Response Procedure Procedure Tolerated Well Tolerated Well #2 Sacral -Time 13:48 14:17 -Correct Patient Yes Yes -Correct Side, Site, Position Yes Yes -Correct Procedure Yes Yes -Procedure Performed Yes Yes -Type of Procedure Debridement Debridement -Clinical Debridement Subcutaneous Subcutaneous -Post Debridement Size (cm) - Length 2.3 1.7 -Post Debridement Size (cm) - Width 0.9 0.5 -Post Debridement Size (cm) - Depth 0.3 0.3 -Total Square Cm 2.07 0.85 -Wound/Ulcer Outcome Not Healed Not Healed -Ulcer Cleansing Rinsed/ Rinsed/ Irrigated with Irrigated with Saline Saline -Foul Odor after Cleansing No No -Bioengineered Tissue No No -Bleeding Controlled with Pressure Pressure -Offloading No No -Treatment Response Procedure Procedure Tolerated Well Tolerated Well Pain Scale: 0-10 Numeric Is Patient Pain Free? Yes Yes Wound debrided: Mid abdominal incision ulcer Type of Debridement: Excisional debridement Anesthesia Used: 5% Lidocaine Gel Depth: Down to and including healthy tissue, in the subcutaneous layer Percentage of wound debrided: 100 Instrument Used: 3mm curette Tissue Removed: subcutaneous tissue and slough Severity: Limited To Skin Breakdown Amount of bleeding with debridement: Mild Bleeding Controlled with: Pressure Patient tolerated procedure well - Additional Wound Wound debrided: sacral ulcer Type of Debridement: Excisional debridement Anesthesia Used: 5% Lidocaine Gel Depth: Down to and including healthy tissue, in the subcutaneous layer Percentage of wound debrided: 100 Instrument Used: 3mm curette Tissue Removed: subcutaneous tissue and slough Severity: Fat Layer Exposed Amount of bleeding with debridement: Mild Bleeding Controlled with: Pressure Patient tolerated procedure: Patient tolerated procedure well Assessment/Plan Active Problems (Last Reviewed 07/29/19 @ 00:16 by Tyron Yang MD) Chronic ulcer of buttock (Chronic) Skin ulcer of abdominal wall with fat layer exposed (Chronic) Pain aggravated by sitting (Chronic) Diabetes (Chronic) Smoker (Chronic) Hidradenitis suppurativa (Chronic) abdominal wall skin crease bilateral inguinal/medial thighs Assessment: 1. Hidradenitis abscess bilateral superior gluteal/perianal area. 2. Hidradenitis abdominal wall. 3. Nonhealing hidradenitis ulcer bilateral superior gluteal/perianal area. 4. Hidradenitis ulcer abdominal wall, was healed, and developed a small abrasion. 5. Diabetes mellitus. 6. Smoker. 7. s/p surgery for surgical preparation abdominal wall with excisional debridement skin and subcutaneous tissue and fascia necrotizing soft tissue hidradenitis infection (492 cm2) and abdominal panniculectomy. 8. s/p surgical preparation bilateral superior gluteal/perianal area with excision necrotizing hidradenitis abscess (143 cm2). 9. Hidradenitis bilateral inguinal and medial upper thigh areas, stable. Plan: The abdominal wall ulcer remains opened. The perianal ulcer has slowed down the healing process. Wound care is Collagen hydrogel to both ulcers daily. Wound culture from 07/29/19 showed Anaerobic cocci. Preop culture showed E. coli, Coag negative Staph, and Gram positive kaylah. Wound culture from 07/19/19 showed Streptococcus anginosus and Actinomyces meyeri. Wound culture from 11/28/2019 Klebsiella pneumoniae sp pneum, Enterococcus faecalis, Staphylococcus epidermidis, Corynebacterium amycolatum. He was placed on Levaquin and Augmetin. Prealbumin from 07/29/19 was 7.6. Encourage nutritional supplementation with protein to help the healing process. He had recent flare ups of hidradenitis in his bilateral inguinal and medial upper thigh areas and was placed on Doxycycline. The flare ups have responded to the antibiotic and are stable at this time. He has concomitant pelvic floor pain that he is scheduled to see a therapist in [place] for evaluation and treatment on 12/27/19. The perianal ulcer's improvement has slowed. Recommend operative debridement and skin grafting. May use autograft or use an advanced product skin substitute graft. Surgery is scheduled for 01/05/20. Surgery will be done under general anesthesia with a surgical observation overnight stay in the hospital. Tissue that is removed will be sent to Pathology for analysis to rule out carcinoma and to Microbiology for culture. A positive culture will necessitate antibiotic therapy. Patient was informed of the risks and complications of the procedure including alternatives to surgery. These were discussed with him personally. He voices understanding and wishes to proceed. Encouraged him to stop smoking as this could be deleterious to his wound healing. Follow up in 2 weeks, after surgery. Code Visit 111xxx-113xx: [id number] Steff subq tissue 20 sq cm/<
== END 2020-01-07 23:59 ==
LOC: WC 13:45
PROVIDERS: Family Provider Internal Medicine; PCP Internal Medicine; Referring Provider Nurse Practitioner Family; Visit Provider Nurse Practitioner Family
DX: L73.2 Hidradenitis suppurativa (principal); F17.200 Nicotine dependence, unspecified, uncomplicated; L98.491 Non-pressure chronic ulcer of skin of other sites limited to breakdown of skin; E11.9 Type 2 diabetes mellitus without complications; L98.412 Non-pressure chronic ulcer of buttock with fat layer exposed
CPT/HCPCS: 11042

== ENCOUNTER 2020-01-02 13:20 | Observation (INO) | payer OTHER, SELFPAY ==
[2020-01-02] VITALS (10 sets, daily range): BP systolic 106–142; BP diastolic 64–91; PULSE 64–100; RESP 16–18; TEMP 36.4–36.7; O2SAT 93–98; BMI 33.6
--- NOTE | 2020-01-02 01:47 | PCM.HP.BLA ---
History and Physical Date of Admission: 01/02/20 HISTORY OF PRESENT ILLNESS 34 year old man presents with nonhealing hidradenitis ulcer bilateral superior gluteal/perianal area that was the result of surgery on 07/29/19 where he underwent surgical preparation bilateral superior gluteal/perianal area with excision necrotizing hidradenitis abscess (143 cm2). Postoperatively he was treated with wound care and antibiotics. Initial healing was seen but lately, it had slowed down. Recent wound culture from 11/28/19 showed Klebsiella pneumoniae, Enterococcus faecalis, MRSE, and Corynebacterium amycolatum. He was placed on Augmentin and Levaquin. Patient has diabetes mellitus, and his last HgbA1c was 7.8 in 07/28. Further operative debridement and skin grafting was recommended. PAST MEDICAL HISTORY Back problem Diabetes Fatty liver Hearing problem Hidradenitis Meniere's disease Recurrent infections Vitamin deficiency PAST SURGICAL HISTORY excision of pilonidal cyst hemilaminotomy Surgical preparation abdominal wall with excisional debridement skin and subcutaneous tissue and fascia necrotizing soft tissue hidradenitis infection (492 cm2) and abdominal panniculectomy - 07/19/19 Surgical preparation bilateral superior gluteal/perianal area with excision necrotizing hidradenitis abscess (143 cm2) - 07/29/19 ALLERGIES sulfamethoxazole [From Bactrim] trimethoprim [From Bactrim] MEDICATIONS aspirin calcium carb calcium carbonate-vitamin D2-minerals doxycycline hyclate famotidine glimepiride metformin omeprazole varenicline Levaquin Augmentin FAMILY HISTORY Uncle - Alcohol abuse Aunt - Alcohol abuse Grandfather -Alcohol abuse Sister -Anemia, Anxiety, Diabetes Mother - Anemia, Diabetes, Heart disease, CVA (cerebral vascular accident) Father - Bone cancer, COPD (chronic obstructive pulmonary disease) SOCIAL HISTORY Smoking Status: Current every day smoker counseling given: provider counseling, counseling >10 minutes alcohol intake: never substance use type: does not use REVIEW OF SYSTEMS General - Denies fever and weight loss. Has fatigue. Eyes - Denies cataracts and glaucoma. ENT - Denies nasal congestion and sore throat. Endocrine - Denies excessive thirst and urination. Patient has diabetes mellitus. Skin - Denies skin cancer. Has multiple areas of hidradenitis. Musculoskeletal - Has joint pain, joint stiffness, back pain, and arthritis. Denies weakness of muscles and joints. Neuro - Denies headaches. Has lightheadedness. Cardiovascular - Denies chest pain and shortness of breath with exertion. Has fatigue and lightheadedness. Psych - Denies anxiety and depression. Respiratory - Denies chronic cough and shortness of breath. Has sleep apnea. Patient is a smoker. Gastrointestinal - Denies nausea, vomiting, diarrhea, and constipation. Hematologic - Denies abnormal bruising and bleeding. Genitourinary - Denies hematuria and urinary frequency. PHYSICAL EXAMINATION General - Alert and Oriented. HEENT - PERRL. EOMI. Throat is clear. No suspicious lesions noted. Neck - Supple and nontender. No cervical adenopathy. No suspicious lesions noted. Lungs - Clear to auscultation. Heart - Regular rate and rhythm. Abdomen - Soft and nondistended. Has hidradenitis in bilateral inguinal/medial thigh areas that is stable at present. Some induration present. Nontender. Areas measure 12 cm. Has intermittent abrasions lower abdominal wall scar from previous hidradenitis surgery. Rectal - There is a nonhealing ulcer bilateral superior gluteal/perianal area. Measures 2.7 x 0..6 x 0.2 cm. Good granulation tissue noted. No purulent drainage. Extremities - FROM. No axillary adenopathy. Radial pulses are palpable. In the left axillary area is a nodule that is consistent with hidradenitis. It is indurated. No purulent drainage. Mild redness present. No ulceration. Back - In the left gluteal/perianal area is some induration from previous hidradenitis. No purulent drainage at present. Nontender. Neuro - CN II-XII grossly intact. Psych - Normal mood and affect. ASSESSMENT 1. Hidradenitis abscess bilateral superior gluteal/perianal area. 2. Nonhealing hidradenitis ulcer bilateral superior gluteal/perianal area. 3. Diabetes mellitus. 4. Smoker. PLAN The perianal ulcer has slowed down the healing process. Continue Laurel dressing changes daily. Wound culture from 07/29/19 showed Anaerobic cocci. Preop culture showed E. coli, Coag negative Staph, and Gram positive kaylah. Wound culture from 07/19/19 showed Streptococcus anginosus and Actinomyces meyeri. He was placed on Augmentin and has finished them. Prealbumin from 07/29/19 was 7.6. Encourage nutritional supplementation with protein to help the healing process. He had recent flare ups of hidradenitis in his bilateral inguinal and medial upper thigh areas and was placed on Doxycycline. The flare ups have responded to the antibiotic and are stable at this time. He has concomitant pelvic floor pain that he is scheduled to see a therapist in [place] for evaluation and treatment. The perianal ulcer's improvement has slowed. Recommend operative debridement and skin grafting. May use autograft or use an advanced product skin substitute graft. Surgery will be done under general anesthesia with a surgical observation overnight stay in the hospital. Tissue that is removed will be sent to Pathology for analysis to rule out carcinoma and to Microbiology for culture. A positive culture will necessitate antibiotic therapy. Patient was informed of the risks and complications of the procedure including alternatives to surgery. These were discussed with him personally. He voices understanding and wishes to proceed. Encouraged him to stop smoking as this could be deleterious to his wound healing. Before any attempts at elective wound closure are done, his HgbA1c will need to be below 8. In 07/28, it was 7.8.
[2020-01-02 10:46] LABS: Bedside Glucose 149 mg/dL (70-110)
[2020-01-02] MEDS: Lactated Ringers 1,000 ML 100 ML IV (10:59)
[2020-01-02] MEDS: Vancomycin IV 1,000 MG/200 ML BAG 200 MG IV (11:00)
--- NOTE | 2020-01-02 12:00 | HID_PTH ---
PATIENT: BRITTANY YOUNG LOC: [facility]3 U#:[id number] AGE/SX: 34/M ROOM: ME316 RE01/02/[address]: Dr. Rohit Luis MD : 1985 BED: 1 DIS: 01/03/2020 SPEC #: [id number] RECD: 01/02/20 15:32 STATUS: ANYI REQ #: [id number] AUGUST: 01/02/20 12:[address]: Rohit Luis DEPT: SURGICAL PATHOLOGY RECD BY: Brennen Bowers ENTERED: 01/03/20 09:25 SP TYPE: Hidradenit OTHR DR: Dr. Miryam Jensen MD Tissues: Perianal tissue Procedures: Surgery Specimen Level IV HEADER OPERATION: Excision nonhealing hidradenitis ulcer, perianal area skin PRE-OP DIAGNOSIS: Hidradenitis abscess bilateral superior gluteal/perianal area TISSUE SUBMITTED: Debrided soft tissue ulcer perianal area MICROSCOPIC DIAGNOSIS Skin and soft tissue ulcer, perianal region, biopsy: Ulceration with associated acute and chronic inflammation and granulation. AM:krystina 01/04/20 MICROSCOPIC DESCRIPTION Slides are reviewed. GROSS DESCRIPTION Received in fixative is one container labeled with the patient's name and designated debrided soft tissue ulcer perianal area. The specimen consists of multiple irregular fragments of rivera-white skin and soft tissue that in aggregate measure 1 x 1 x 0.2 cm. The entire specimen is submitted in one cassette. / SANDRO:krystina 01/03/20 TC:2 CPT: 24847
[2020-01-02] MEDS: levoFLOXacin IV 500 MG/100 ML BAG 100 MG IV (12:18)
[2020-01-02] MEDS: Mupirocin Ointment 22gm Tube 1 APPLIC (13:02)
--- NOTE | 2020-01-02 13:09 | OP.PCM_ITS ---
Report of Operation Date of Procedure: 01/02/20 Pre-Operative Diagnosis: 1. Hidradenitis abscess bilateral superior glute al/perianal area. 2. Nonhealing hidradenitis ulcer bilateral superior gluteal/perianal area. 3. Diabetes mellitus. 4. Smoker. Post-Operative Diagnosis: Same. Surgery/Procedure Performed:: Surgical preparation bilateral superior gluteal/perianal area with excisional debridement nonhealing hidradenitis ulcer and STSG reconstruction from left posterior flank (4.5 cm2) and placement of AmnioFill placental connective tissue powder (250 mg). Description of Surgical Findings:: 34 year old man presents with nonhealing hidradenitis ulcer bilateral superior gluteal/perianal area that was the result of surgery on 07/29/19 where he underwent surgical preparation bilateral superior gluteal/perianal area with excision necr otizing hidradenitis abscess (143 cm2). Postoperatively he was treated with wound care and antibiotics. Initial healing was seen but lately, it had slowed down. Recent wound culture from 11/28/19 showed Klebsiella pneumoniae, Enterococcus faecalis, MRSE, and Corynebacterium amycolatum. He was placed on Augmentin and Levaquin. Patient has diabetes mellitus, and his last HgbA1c was 7.8 in 07/28. Further operative debridement and skin grafting was recommended. Patient was informed of the risks and complications of the procedure including alternatives to surgery. These were discussed with the patient personally. Patient voices understanding and wishes to proceed. Encouraged patient to stop smoking as it may have deleterious effects on wound healing. I used AmnioFill Placental Connective Tissue Powder, 250 mg. Catalog Number - [id number]. Lot Number - [id number]. Expiration - May 09, 2024. Size of skin graft perianal area - 3 x 1.5 cm. corrective and manual arts therapist: Becca Le. Type of Anesthesia:: General Specimen's removed: Nonhealing hidradenitis ulcer bilateral superior g luteal/perianal area to Pathology and Microbiology. Drains: None. Estimated Blood Loss (mL): 50 ml. Description of Procedure: Patient was taken to OR in supine position and was placed under general anesthesia. He was then placed in the prone position. I placed the gluteal skin on stretch with Cavilon skin adhesive followed by tape to exposed the bilateral superior gluteal/perianal ulcer. The bilateral superior gluteal/perianal area and left posterior flank areas were prepped and draped in the usual fashion. SCD's were placed for DVT prophylaxis. Perioperative antibiotics were given intravenously. Using xylocaine with epinephrine, the donor incision left posterior flank and the perianal ulcer were infiltrated. After waiting 5 minutes for the anesthetic to take effect, I made a horizontal elliptical excision in the left posterior flank area down into the subcutaneous tissue. I removed the subcutaneous tissue and the deeper dermis thus fashioning a thick split thickness skin graft. The skin graft was placed in saline. Some of the subcutaneous tissue was excised to aid in wound closure. Hemostasis was obtained with electrocautery. The wound was irrigated with saline. The underlying fascia was approximated with 2-0 Vicryl simple interrupted sutures. The deep dermis and subcutaneous tissue was approximated with 3-0 Monocryl interrupted sutures. The skin was approximated with 3-0 V lock unidirectional barbed running subcuticular suture. This was followed with Histoacryl skin tissue adhesive and Kerlix gauze dressing. I proceeded with excisional debridement of the perianal ulcer. I used a scalpel and a curette. Good bleeding was seen. Some of the debrided tissue was sent to Microbiology for culture. The rest of the tissue was sent to Pathology for analysis to rule out carcinoma. The size of the ulcer to be skin grafted. after excisional debridement was 3 x 1.5 cm or 4.5 cm2. The skin was then placed on the ulcer. Prior to suturing the skin graft to the ulcer, I placed AmnioFill placental connective tissue powder to the ulcer to aid in skin graft healing. The skin graft was then sutured to the ulcer edges with 3-0 Chromic simple interrupted sutures. 3-0 Chromic sutures were also used for central quilting stabilization. I placed Bactroban ointment on the skin graft followed by Xeroform gauze and cotton balls soaked in saline and secured to the skin edges with 3-0 Nylon tie over stent suture dressing. Dry gauze was then placed on top of the skin graft compression dressing. Patient tolerated the procedure well and was sent to PACU in satisfactory condition. Patient will be sent upstairs for continued postop care. Anticipate discharge tomorrow if tolerating po analgesia. Will followup at the [facility] next Thursday to remove the skin graft compression dressing. It was discussed with the patient that being diabetic, and a smoker, and the ulcer being very close to the anal opening, there is increased risk of compromised healing of the skin graft. If that is the case, then the patient can be evaluated for HBO treatments to help salvage any compromise to the healing skin graft. He voiced understanding. Grafts/Implants Used: AmnioFill placental connective tissue powder. - Complications None. - Admit VTE Documentation VTE Present on Admission: No VTE Mechan Device Prophylaxis: SCD's VTE Pharm Prophylaxis ordered?: No Code Visit Surgery Charges CPT - 52510 ICD-10 - L98.419, L73.2, L02.31, E11.9, F17.200 44101 L98.419, L73.2, L02.31, E11.9, F17.200
[2020-01-02 13:56] LABS: Bedside Glucose 193 mg/dL (70-110)
--- NOTE | 2020-01-02 15:30 | PCM.RX.CS ---
Consult Pharmacy has been consulted to manage selected antiobiotic: Vancomycin Type of Consult: New start Prior Doses of Antibiotics Received/Current Regimen: Medications Discontinued Medications Vancomycin HCl (Vancomycin) 1,000 mg in 200 mls @ 200 mls/hr IV PREOP ONE Stop: 01/02/20 12:44 Last Admin: 01/02/20 13:04 Dose: Infused Documented by: Microbiology: Microbiology 01/02/20 12:55 Incision/Surgical Site Gram Stain - Final Weight used for dosin kg Estimated Creatinine Clearance: > 100 Goal Trough: 10-15 mcg/mL Pharmacy Plan for Drug Dosing: Initial preop dose 1000mg. Continue vanc 1500mg IV q12h per policy with trough prior to 4th dose. Pharmacy Service will continue to monitor and adjust dosing as required. Follow-Up Labs: Trough Vancomycin - 01/03 @ 1930
--- NOTE | 2020-01-02 16:35 | NURSING ---
WHEN NURSE ENTERED ROOM TO DO INITIAL POST OP PT WAS STANDING AT SIDE OF BED, NEEDING TO THE BR, ASSISTED TO BR. THAN HE REQUESTED TO SIT IN RECLINER. hE SAT IN RECLINER ABOUT 13 MIN AND ASSISTED TO BED. CALL LIGHT IN REACH.
[2020-01-02] MEDS: oxyCODONE 5 MG Tablet 10 MG PO ×2 (16:44→21:11)
[2020-01-02] MEDS: Ascorbic Acid 500 MG Tablet PO (16:44)
[2020-01-02 16:50] LABS: Bedside Glucose 148 mg/dL (70-110)
[2020-01-02] MEDS: 0.9% Saline Lock 10 ML Syringe IV (17:58)
[2020-01-02] MEDS: Ondansetron 4 MG/2 ML Vial IV (17:58)
[2020-01-02] MEDS: Docusate Sodium 100 MG Capsule PO (21:11)
[2020-01-02] MEDS: Lactated Ringers 1,000 ML 60 ML IV (21:13)
[2020-01-02] MEDS: metFORMIN HCl 500 MG Tablet PO (21:14)
[2020-01-02 21:15] LABS: Bedside Glucose 191 mg/dL (70-110)
[2020-01-02] MEDS: Famotidine 20 MG Tablet PO (21:18)
[2020-01-03 00:25] VITALS: BP 104/62; PULSE 68; RESP 16; TEMP 36.6; O2SAT 95
[2020-01-03 05:00] VITALS: BP 111/71; PULSE 66; RESP 18; TEMP 36.9; O2SAT 98
[2020-01-03] MEDS: oxyCODONE 5 MG Tablet 10 MG PO ×3 (05:26→16:40)
[2020-01-03] MEDS: HYDROmorphone 1 MG/ML Syringe IV (06:49)
[2020-01-03 06:53] LABS: Erythrocyte Sedimentation Rate 7 mm/hr (0-15); Hematocrit 44.6 % (40-54); Hemoglobin 14.9 g/dL (13.0-16.5); Mean Corp Hgb Conc 33.4 g/dL (32-36); Mean Corpuscular Hgb 29.6 pg (27.0-32.0); Mean Corpuscular Volume 88.5 fL (80-94); Mean Platelet Vol. 10.2 fl (6.2-12.0); Platelet Count 222 K/mm3 (150-450); RBC Distribution Width CV 15.2 % (11.6-14.6); RBC Distribution Width SD 49.5 fl (35.1-43.9); Red Blood Count 5.04 M/mm3 (4.6-6.2); White Blood Count 11.9 K/mm3 (4.4-11.0)
[2020-01-03 06:55] LABS: Bedside Glucose 111 mg/dL (70-110)
[2020-01-03 07:17] LABS: AST(SGOT) 26 U/L (15-37); Alanine Aminotransfer ALT/SGPT 56 U/L (16-61); Albumin, Serum 3.3 g/dL (3.2-5.0); Alkaline Phosphatase 69 U/L (45-117); Anion Gap 5 (5-15); BUN 14 mg/dL (7-18); BUN/Creat Ratio 15.6 RATIO (10-20); Calcium,Total 8.7 mg/dL (8.5-10.1); Chloride 109 mmol/L (98-107); EST Glomerular Filtration Rate 102 mL/min (>60); Est Glom Filt Rate - Afr Amer 123 mL/min (>60); Estimated Creatinine Clearance 107.11 ml/min; Globulin 3.3 g/dL (2.2-4.2); Glucose 109 mg/dL (74-106); Potassium 3.9 mmol/L (3.5-5.1); Prealbumin 21.9 mg/dL (20.0-40.0); Protein, Total 6.6 g/dL (6.4-8.2); Sodium Level 140 mmol/L (136-145)
[2020-01-03] MEDS: Multivitamins,Therapeutic Tablet 1 TABLET PO (08:02)
[2020-01-03] MEDS: metFORMIN HCl 850 MG Tablet PO (08:02)
[2020-01-03] MEDS: Glimepiride 4 MG Tablet PO (08:02)
[2020-01-03] MEDS: Ascorbic Acid 500 MG Tablet PO (08:03)
[2020-01-03 08:06] LABS: Hemoglobin A1c 8.3 % (4.2-6.3)
[2020-01-03 08:08] VITALS: BP 123/74; PULSE 88; RESP 18; TEMP 36.5; O2SAT 96
[2020-01-03] MEDS: levoFLOXacin IV 500 MG/100 ML BAG 100 MG IV (08:36)
[2020-01-03] MEDS: Famotidine 20 MG Tablet PO (08:37)
[2020-01-03] MEDS: Pantoprazole Sodium 20 MG Tablet PO (08:37)
[2020-01-03 12:20] LABS: Bedside Glucose 199 mg/dL (70-110)
[2020-01-03 15:44] VITALS: BP 123/71; PULSE 70; RESP 18; TEMP 36.7; O2SAT 96
--- NOTE | 2020-01-03 16:19 | PN.SURG_ITS ---
Subjective: Postop #1 Patient is resting comfortably. He is tolerating po analgesia. - Physical Exam Vitals/I&O's: Vital Signs Temp Pulse Resp BP Pulse Ox 98.1 F 70 18 123/71 H 96 01/03/20 15:44 01/03/20 15:44 01/03/20 15:44 01/03/20 15:44 01/03/20 15:44 Oxygen Flow Rate (L/min) 2 Oxygen Delivery Method Room Air Weight: 217 lb 13.067 oz Body Mass Index (BMI) 33.6 Finger Stick Blood Glucose 193 Intake and Output for Last 24 Hours 01/01/20 01/02/20 01/03/20 23:59 23:59 23:59 Intake Total 1384 / 1384 1695 / 1695 Balance 1384 / 1384 1695 / 1695 General: Alert, Oriented x3 HEENT: PERRLA, EOMI Oral: Moist Mucosa Neck: Supple Abdomen: Soft, Non-Distended Skin: - - skin graft dressing perianal area dry. donor incision left posterior flank dry and intact. Neurological: Cranial nerves II-XII grossly intact Psych/Mental Status: Normal Affect, Appropriate Microbiology Past 72 Hours 01/02/20 12:55 Incision/Surgical Site Gram Stain - Final 01/02/20 12:55 Incision/Surgical Site Wound Culture - Preliminary No growth-Final to follow Laboratory Results 01/02/20 16:42: POC Glucose 148 H 01/02/20 21:08: POC Glucose 191 H 01/03/20 06:08: WBC 11.9 H, RBC 5.04, Hgb 14.9, Hct 44.6, MCV 88.5, MCH 29.6, MCHC 33.4, RDW Std Deviation 49.5 H, RDW Coeff of Cindi 15.2 H, Plt Count 222, MPV 10.2, ESR 7 01/03/20 06:08: Sodium 140, Potassium 3.9, Chloride 109 H, Carbon Dioxide 26.0, Anion Gap 5, BUN 14, Creatinine 0.90, Estim Creat Clear Calc 107.11, Est GFR (MDRD) Af Amer 123, Est GFR (MDRD) Non-Af 102, BUN/Creatinine Ratio 15.6, Glucose 109 H, Calcium 8.7, Total Bilirubin 0.50, AST 26, ALT 56, Alkaline Phosphatase 69, C-React Prot Ext Range 19.40 H, Total Protein 6.6, Albumin 3.3, Globulin 3.3, Albumin/Globulin Ratio 1.0, Prealbumin 21.9 01/03/20 06:08: Hemoglobin A1c 8.3 H 01/03/20 06:53: POC Glucose 111 H 01/03/20 12:16: POC Glucose 199 H Current Medications [facility] Admin: 01/03/20 08:03 Dose: 500 mg Documented by: Docusate Sodium (Colace) 100 mg PO BID [facility] Last Admin: 01/03/20 08:37 Dose: Not Given Documented by: Ergocalciferol (Vitamin D) 50,000 unit PO Fr@1000 [facility] Famotidine (Pepcid) 20 mg PO BID [facility] Last Admin: 01/03/20 08:37 Dose: 20 mg Documented by: Glimepiride (Amaryl) 4 mg PO DAILY@0800 [facility] Last Admin: 01/03/20 08:02 Dose: 4 mg Documented by: Hydromorphone HCl (Dilaudid Inj) 1 mg IV Q3H PRN PRN PRN Reason: Pain Score 6-10/10 Last Admin: 01/03/20 06:49 Dose: 1 mg Documented by: Lactated Ringer's () 1,000 mls @ 60 mls/hr IV .[id number] [facility] Last Infusion: 01/03/20 10:40 Dose: 0 mls/hr Documented by: Levofloxacin (Levaquin Iv) 500 mg in 100 mls @ 100 mls/hr IV Q24 [facility] Last Infusion: 01/03/20 09:36 Dose: Infused Documented by: Vancomycin IV Pharmacy to Dose (1 ea/ Sodium Chloride) 500 mls @ 250 mls/hr IV X1 PRN; Protocol PRN Reason: Rx to Dose Sodium Chloride () 250 mls @ 15 mls/hr IV .[id number] PRN PRN Reason: Saline Flush Sodium Chloride () 250 mls @ 15 mls/hr IV .[id number] PRN PRN Reason: Additional IVPB Infusion Vancomycin HCl 1,500 mg/ (Sodium Chloride) 530 mls @ 250 mls/hr IV Q12H [facility] Last Infusion: 01/03/20 12:47 Dose: Infused Documented by: Metformin [facility] (Glucophage) [facility] Last Admin: 01/03/20 08:02 Dose: 850 mg Documented by: Metformin HCl (Glucophage) 500 mg PO QHS [facility] Last Admin: 01/02/20 21:14 Dose: 500 mg Documented by: Multivitamins (Multivitamin) [facility] Last Admin: 01/03/20 08:02 Dose: 1 tablet Documented by: Nutritional Formula (Hansel - Martinez Flavor) [facility] Last Admin: 01/03/20 08:02 Dose: 1 packet Documented by: Ondansetron HCl (Zofran) 4 mg IV Q6H PRN PRN PRN Reason: NAUSEA Last Admin: 01/02/20 17:58 Dose: 4 mg Documented by: Oxycodone HCl (Oxyir) 10 mg PO Q4H PRN PRN PRN Reason: Pain Score 6-10/10 Last Admin: 01/03/20 12:14 Dose: 10 mg Documented by: Pantoprazole Sodium (Protonix) 20 mg PO DAILY [facility] Last Admin: 01/03/20 08:37 Dose: 20 mg Documented by: Promethazine HCl (Phenergan Tablet) 25 mg PO Q4H PRN PRN PRN Reason: NAUSEA/VOMITING Sodium Chloride () 10 - 40 ml IV UD PRN PRN Reason: SALINE FLUSH Last Admin: 01/02/20 17:58 Dose: 10 ml Documented by: Medical Necessity - Tobacco Use Smoking Status: Current some day smoker Assessment/Plan All Active Problems (Last Reviewed 07/29/19 @ 00:[address] Tyron Yang MD) Scrotal abscess (Acute) Abscess of buttock (Acute) Severe sepsis (Acute) 1. Hidradenitis abscess bilateral superior gluteal/perianal area. 2. Nonhealing hidradenitis ulcer bilateral superior gluteal/perianal area. 3. Diabetes mellitus. 4. Smoker. 5. s/p surgical preparation bilateral superior gluteal/perianal area with excisional debridement nonhealing hidradenitis ulcer and STSG reconstruction from left posterior flank (4.5 cm2) and placement of AmnioFill placental connective tissue powder (250 mg). Patient is tolerating po analgesia. Skin graft dressing dry. Operative culture negative thus far. Was treated perioperatively with Vancom ycin and Levaquin. Will discharge home on Augmentin and Levaquin. Discharge home today. Followup [facility] Thursday01/09/20. Will change the skin graft dressing at that time. Wrote scripts for Augmentin and Levaquin. Wrote script for Percocet for pain (40 tabs). Wrote script for Phenergan for nausea (30 tabs) with a refill. Encouraged patient to stop smoking as it may have deleterious effects on wound healing.
--- NOTE | 2020-01-03 16:33 | DCINST_ITS ---
You will use the following diet at home:: Calorie/Carbohydrate Controlled (specify 1200, 1400, etc), Other - encourage nutritional supplementation with protein to help the healing process. Discharge Activity: May not drive while taking narcotic pain medications., May Shower - minimize getting the perianal area wet. May shower in (days): 2 - minimize getting the perianal area wet. May resume sexual activity in: 10-14 days Weight Bearing Status: Weight bearing as tolerated Call your doctor if your incision/area has: Continuous Slow Oozing, Sudden Increased Bleeding, Increased Pain/ Swelling, Increased Redness, Foul Smelling Discharge, Swelling at the incision site Call your doctor if you observe: Fever of 101 or Higher, Coldness, Increased Pain, Shortness of breath, Chest pain, Calf discomfort, Uncontrolled pain Suture Line Care: - - collagen hydrogel to abdominal wall area daily. may remove the left posterior flank donor dressing in 2 days and apply antibiotic ointment daily to the suture line. Remove Dressing in (days):: 6 - will remove skin graft dressing perianal area on Thursday at wound center. Cleanse incision/area with: Soap & Water - may cleanse the skin graft with soap and water after the operative dressing removed. Allergies/Adverse Reactions: Allergies sulfamethoxazole [From Bactrim] Allergy (Severe, Verified 01/02/20 10:31) BODY RASH trimethoprim [From Bactrim] Allergy (Severe, Verified 01/02/20 10:31) BODY RASH Medications to take at Discharge calcium carb 300 mg-D3 800 unit-mag ox 25 mg-copy manager 0.5 mg-[place]usta-Zn tablet 2 tab PO DAILY 06/10/19 famotidine 20 mg tablet 20 mg PO BID 06/10/19 omeprazole 20 mg capsule,delayed release 20 mg PO DAILY 06/10/19 Ergocalciferol [Vitamin D] 50,000 unit PO FR 07/12/19 Metformin HCl 500 mg PO QHS 07/12/19 Glimepiride 4 mg PO DAILY 07/28/19 Metformin HCl 850 mg PO DAILY 07/28/19 Ascorbic Acid [Vitamin C] 500 mg PO BIDCM tab 08/03/19 Multivitamins,Therapeutic [Multivitamin] 1 tab PO DAILYCM tab 08/03/19 Amoxicillin/Potassium Clav [Augmentin 875-125 Tablet] 1 ea PO BID 21 Days #42 tab 01/03/20 Docusate Sodium [Colace] 100 mg PO BID cap 01/03/20 Oxycodone HCl/Acetaminophen [Percocet 5/325] 1 tablet PO Q4H PRN PRN 7 Days #40 tablet 01/03/20 levoFLOXacin tablet [Levaquin tablet] 500 mg PO DAILY 21 Days #21 tab 01/03/20 proMETHazine tablet [Phenergan tablet] 25 mg PO 4X/DAY PRN PRN #30 tab 01/03/20 The following prescriptions were given: Amoxicillin/Potassium Clav [Augmentin 875-125 Tablet] 1 ea PO BID 21 Days #42 tab Transmission Status: Pending to [facility]/pharmacy #[id number] levoFLOXacin tablet [Levaquin tablet] 500 mg PO DAILY 21 Days #21 tab Transmission Status: Sent to [facility]/pharmacy #[id number] Oxycodone HCl/Acetaminophen [Percocet 5/325] 1 tablet PO Q4H PRN PRN 7 Days #40 tablet PRN Reason: Pain Score 4-5/10 Transmission Status: Received by [facility]/pharmacy #[id number] proMETHazine tablet [Phenergan tablet] 25 mg PO 4X/DAY PRN PRN #30 tab PRN Reason: NAUSEA/VOMITING Transmission Status: Sent to [facility]/pharmacy #[id number] Primary Care Physician: Miryam Jensen [Primary Care Provider] - Test Results: Test results from this visit will be discussed in further detail at your follow- up appointment, if applicable. Please Follow Up With: Rohit Luis MD When: thursday01/09/20 at [facility]. call [phone] if any questions. Proposed Discharge Date: 01/03/20
== END 2020-01-03 16:53 | disposition home or self-care (01) ==
LOC: SDC 14:45 → MS3 14:45
PROVIDERS: Admitting Provider Surgery; PCP Internal Medicine; Referring Provider Surgery; Visit Provider Surgery
PROC: (CPT 11471; principal; 2020-01-02 11:45)
DX: L73.2 Hidradenitis suppurativa (principal); E11.9 Type 2 diabetes mellitus without complications; K62.6 Ulcer of anus and rectum; Z79.84 Long term (current) use of oral hypoglycemic drugs; Z79.899 Other long term (current) drug therapy; Z79.82 Long term (current) use of aspirin; F17.200 Nicotine dependence, unspecified, uncomplicated
CPT/HCPCS: 00400; 11471; 15120; 36415; 80053; 82962; 83036; 84134; 85027; 85652; 86140; 87070; 87075; 87102; 87176; 87205; 87206; 88305; 96365; 96366; 96367; 96375; 99218; 99251; 99406; J7040; J7120; A4216; G0378; G0379; G0463; J2405

== ENCOUNTER 2020-02-06 11:00 | Outpatient (RCR) | payer OTHER, SELFPAY ==
[2020-01-02 16:13] VITALS: BMI 33.6
[2020-01-08 00:32] VITALS: BP 127/80; PULSE 87; RESP 18; TEMP 37.1
[2020-01-09 13:50] VITALS: BP 123/90; PULSE 99; RESP 16; TEMP 36.3; BMI 33.6
--- NOTE | 2020-01-09 16:29 | PN.PCM_ITS ---
(1) Skin allograft rejection Status: Acute Current Visit: Yes Code(s): T86.820 - Skin graft (allograft) rejection (2) Skin graft (allograft) (autograft) failure Status: Acute Current Visit: Yes Code(s): T86.821 - Skin graft (allograft) (autograft) failure (3) Other complications of skin graft (allograft) (autograft) Status: Acute Current Visit: Yes Code(s): T86.828 - Other complications of skin graft (allograft) (autograft) (4) Chronic ulcer of buttock Status: Chronic Current Visit: Yes Code(s): L98.419 - Non-pressure chronic ulcer of buttock with unspecified severity (5) Diabetes Status: Chronic Current Visit: Yes Code(s): E11.9 - Type 2 diabetes mellitus without complications (6) Smoker Status: Chronic Current Visit: Yes Code(s): F17.200 - Nicotine dependence, unspecified, uncomplicated (7) Hidradenitis suppurativa Status: Chronic Current Visit: Yes Code(s): L73.2 - Hidradenitis suppurativa Comment: abdominal wall skin crease bilateral inguinal/medial thighs Type of Wound Date of Service: 01/09/20 Chief Complaint: Nonhealing ulcers lower abdominal wall and bilateral superior gluteal/perianal areas. History of Wound: Surgery 01/02/20 - Surgical preparation bilateral superior gluteal/perianal area with excisional debridement nonhealing hidradenitis ulcer and STSG reconstruction from left posterior flank (4.5 cm2) and placement of AmnioFill placental connective tissue powder (250 mg). Surgery 07/29/19 - surgical preparation bilateral superior gluteal/perianal area with excision necrotizing hidradenitis abscess (143 cm2). Surgery 07/19/19 - surgical preparation abdominal wall with excisional debridement skin and subcutaneous tissue and fascia necrotizing soft tissue hidradenitis infection and abdominal pannculectomy. Compression dressing removed today (01/09/20) and autograft shows no vascularization. Will order HBOT to see if we can salvage the skin graft. Wound Care -Antibiotic ointment daily and PRN to the skin graft andCollagen hydrogel to the abdominal area. Operative culture from 01/02/20 negative for bacterial growth. Operative culture 07/29/19 - Anaerobic cocci and preoperatively E coli, Coag negative Staph, and Gram positive kaylah. He was discharged on Augmentin and has finished them. Culture from 07/19/19 surgery showed Streptococcus anginosus and Actinomyces meyeri. Wound culture from 11/28/2019 positive for Klebsiella pneumoniae sp pneum, Enterococcus faecalis, Staphylococcus epidermidis, Corynebacterium amycolatum. He was placed on Levaquin and Augmentin. Prealbumin from 07/29/19 was 7.6. Encourage nutritional supplementation with protein to help the healing process. He has started to have intermittent flare ups in his bilateral inguinal and upper medial thigh areas that responded to Doxycycline. He has complained about pelvic floor pain and was referred for pelvic floor therapy in [place]. Today he denies fever. His appetite is better. Progress of Wound: Surgery for skin graft on 01/02/20. Skin graft shows some compromise. Will order HBOT to try to salvage the skin graft. Lower abdominal incision still with a small opening. - Physical Exam Vital Signs Temp Pulse Resp BP 97.4 F L 99 16 123/90 H 01/09/20 13:50 01/09/20 13:50 01/09/20 13:50 01/09/20 13:50 General: Alert, Oriented x3, Cooperative HEENT: Atraumatic Oral: Moist Mucosa Lungs: Normal air movement Cardiovascular: Regular rate Extremities: No edema Skin: Ulcer/ Wound - Kassandra anal skin graft showing compromise with no vascular ingrowth. Left flank donor incision is dry and intact. Wound Measurements and Assessment WC - Nurse 1 - General Ulcer Measurement Start: 01/09/20 13:50 Freq: Status: Active Protocol: Activity Type Activity Date Activity User E-Sign Co-Sign Detail Recorded Client Recorded Date Recorded By Document 01/09/20 13:50 [facility] [id number] 01/09/20 14:07 [facility] 01/09/20 13:50 Wound Center Nurse 1 [Ulcer Assessment] #6- LT UPPER BUTTOCK -Combined with other wound No -Current Size (cm) - Length 0.1 -Current Size (cm) - Width 0.1 -Current Size (cm) - Depth 0.1 -Total Square Cm 0.01 -Date of Last Picture (Recall this 01/09/20 field) -Photo Taken Yes -Tunneling No -Undermining/Tunneling No -Circular Undermining No -Exudate Amt None Present -Wound Margin Flat & Intact -Necrosis Amt Small (1-33%) -Necrotic Tissue Type Adherent Slough -Texture (Kassandra-wound Skin Appearance) Assessed, Scarring -Moisture (Kassandra-wound Skin Appearance Assessed,Dry/ ) Scaly -Color (Kassandra-wound Skin Appearance) Assessed -Temperature (Kassandra-wound Skin No Abnormality Appearance) (Pt Warm) -Tenderness on Palpation (Kassandra-wound No Skin Appearance) -Ulcer Cleansing SOAPY WATER -Foul Odor after Cleansing No -Anesthetic Used 5% Lidocaine Gel 5. lower mid abd -Combined with other wound No -Current Size (cm) - Length 0.5 -Current Size (cm) - Width 0.6 -Current Size (cm) - Depth 0.1 -Total Square Cm 0.30 -Date of Last Picture (Recall this 01/09/20 field) -Photo Taken Yes -Epithelialization None Present -Tunneling No -Undermining/Tunneling No -Circular Undermining No -Exudate Amt None Present -Wound Margin Distinct, Outline Attached -Granulation Amt Large (67-100%) -Granulation Quality Red -Slough/Fibrin Yes -Necrosis Amt Small (1-33%) -Necrotic Tissue Type Adherent Slough -Texture (Kassandra-wound Skin Appearance) Assessed, Scarring -Moisture (Kassandra-wound Skin Appearance Assessed,Dry/ ) Scaly -Color (Kassandra-wound Skin Appearance) Assessed -Temperature (Kassandra-wound Skin No Abnormality Appearance) (Pt Warm) -Tenderness on Palpation (Kassandra-wound No Skin Appearance) -Ulcer Cleansing Rinsed/ Irrigated with Saline -Foul Odor after Cleansing No -Anesthetic Used 5% Lidocaine Gel #2 Sacral -Combined with other wound No -Current Size (cm) - Length 0.1 -Current Size (cm) - Width 0.1 -Current Size (cm) - Depth 0.1 -Total Square Cm 0.01 -Date of Last Picture (Recall this 01/09/20 field) -Photo Taken Yes -Epithelialization None Present -Tunneling No -Undermining/Tunneling No -Circular Undermining No -Exudate Amt Small -Exudate Type Sanguineous -Texture (Kassandra-wound Skin Appearance) Assessed -Moisture (Kassandra-wound Skin Appearance Assessed ) -Color (Kassandra-wound Skin Appearance) Assessed, Erythema -Temperature (Kassandra-wound Skin No Abnormality Appearance) (Pt Warm) -Tenderness on Palpation (Kassandra-wound Yes Skin Appearance) -Ulcer Cleansing soapy water -Foul Odor after Cleansing No -Anesthetic Used 5% Lidocaine Gel - Nurse 2 - General Ulcer CM Notes Start: 01/09/20 13:50 Freq: Status: Active Protocol: Activity Type Activity Date Activity User E-Sign Co-Sign Detail Recorded Client Recorded Date Recorded By Document 01/09/20 14:30 [id number] 01/09/20 14:42 01/09/20 14:30 Wound Center Nurse 2 [Procedure/Treatment] #6- LT UPPER BUTTOCK -Correct Patient No -Correct Side, Site, Position No -Correct Procedure No -Procedure Performed No #2 Sacral -Correct Patient No -Correct Side, Site, Position No -Correct Procedure No -Procedure Performed No -Wound/Ulcer Outcome Failed Graft -Ulcer Cleansing Rinsed/ Irrigated with Saline -Foul Odor after Cleansing No -Bioengineered Tissue No -Bleeding Controlled with Pressure -Offloading No -Treatment Response Procedure Tolerated Well [See Physician Procedure note for Specifics] Pain Scale: 0-10 Numeric [Pain] -Is Patient Pain Free? Yes Musculoskeletal: Tenderness Neurological: Neuro grossly intact Psych/Mental Status: Normal Affect, Appropriate Debridement Note Post-Debridement Measurements/Treatment - Nurse 2 - General Ulcer CM Notes Start: 01/09/20 13:50 Freq: Status: Active Protocol: Activity Type Activity Date Activity User E-Sign Co-Sign Detail Recorded Client Recorded Date Recorded By Document 01/09/20 14:30 [id number] 01/09/20 14:42 01/09/20 14:30 Wound Center Nurse 2 #6- LT UPPER BUTTOCK -Correct Patient No -Correct Side, Site, Position No -Correct Procedure No -Procedure Performed No #2 Sacral -Correct Patient No -Correct Side, Site, Position No -Correct Procedure No -Procedure Performed No -Wound/Ulcer Outcome Failed Graft -Ulcer Cleansing Rinsed/ Irrigated with Saline -Foul Odor after Cleansing No -Bioengineered Tissue No -Bleeding Controlled with Pressure -Offloading No -Treatment Response Procedure Tolerated Well Pain Scale: 0-10 Numeric Is Patient Pain Free? Yes No debridement was completed today Assessment/Plan Active Problems (Last Reviewed 07/29/19 @ 00:[address] Tyron Yang MD) Chronic ulcer of buttock (Chronic) Skin graft (allograft) (autograft) failure (Acute) Skin allograft rejection (Acute) Other complications of skin graft (allograft) (autograft) (Acute) Diabetes (Chronic) Smoker (Chronic) Hidradenitis suppurativa (Chronic) abdominal wall skin crease bilateral inguinal/medial thighs Assessment: 1. Hidradenitis abscess bilateral superior gluteal/perianal area. 2. Hidradenitis abdominal wall. 3. Nonhealing hidradenitis ulcer bilateral superior gluteal/perianal area. 4. Hidradenitis ulcer abdominal wall, was healed, and developed a small abrasion. 5. Skin Graft Failure. 6. Complica tions of skin graft. 7. Diabetes Type 2. 8. Smoker. 5. Diabetes mellitus. 6. Smoker. 7. s/p surgery for surgical preparation abdominal wall with excisional debridement skin and subcutaneous tissue and fascia necrotizing soft tissue hidradenitis infection (492 cm2) and abdominal panniculectomy. 8. s/p surgical preparation bilateral superior gluteal/perianal area with excision necrotizing hidradenitis abscess (143 cm2). 9. Hidradenitis bilateral inguinal and medial upper thigh areas, stable. Plan: The abdominal wall ulcer remains opened. Wound care is Collagen hydrogel to both ulcers daily. Surgery 01/02/20 - Surgical preparation bilateral superior gluteal/perianal area with excisional debridement nonhealing hidradenitis ulcer and STSG reconstruction from left posterior flank (4.5 cm2) and placement of AmnioFill placental connective tissue powder (250 mg). Surgical wound culture was negative. Surgical compression dressing removed today. Skin graft is pale without vascular ingrowth. Will have patient apply antibiotic ointment daily and as needed. Since there is significant compromise of the skin graft, he would benefit from Hyperbaric Oxygen Therapy to help salvage the graft. He would require 30 treatments at 2 ROXANN for 90 minutes with no air breaks. Prealbumin from 01/03/20 was 21.9. HgA1C =8.3. He has concomitant pelvic floor pain that he is scheduled to see a therapist in [place] for evaluation and treatment on 12/27/19. Encouraged him to stop smoking as this could be deleterious to his wound healing. Follow up in 1 week. Code Visit [id number]: [id number] Global Visit
--- NOTE | 2020-01-12 08:40 | RAD_ITS ---
STUDY: X-RAY CHEST REASON FOR EXAM: Male, 34 years old. Smoker x 17 years -- possible hyperbaric oxygen therapy for wound TECHNIQUE: PA and lateral views of the chest. COMPARISON: Comparison is made with prior study dated July 28, 2019. FINDINGS: The lungs are clear and expanded. Scattered calcified granulomas. There is no demonstrated pleural abnormality. Normal size heart. Normal mediastinum and solitario. Normal visualized pulmonary arteries. Normal visualized aortic arch and descending thoracic aorta. Normal visualized thoracic spine. Normal visualized ribs, clavicles, and shoulders. There is no demonstrated abnormality of the visualized soft tissue structures of the upper abdomen. RAD/Chest PA and Lateral IMPRESSION: Normal x-ray examination of the chest. Electronically Signed: Abdias Goldstein, at 12:49 EST , Service support ,
[2020-01-16 13:15] VITALS: BP 158/92; PULSE 102; RESP 16; TEMP 37.2; BMI 33.6
--- NOTE | 2020-01-16 14:27 | PN.PCM_ITS ---
(1) Skin allograft rejection Status: Acute Current Visit: Yes Code(s): T86.820 - Skin graft (allograft) rejection (2) Skin graft (allograft) (autograft) failure Status: Acute Current Visit: Yes Code(s): T86.821 - Skin graft (allograft) (autograft) failure (3) Other complications of skin graft (allograft) (autograft) Status: Acute Current Visit: Yes Code(s): T86.828 - Other complications of skin graft (allograft) (autograft) (4) Chronic ulcer of buttock Status: Chronic Current Visit: Yes Code(s): L98.419 - Non-pressure chronic ulcer of buttock with unspecified severity (5) Diabetes Status: Chronic Current Visit: Yes Code(s): E11.9 - Type 2 diabetes mellitus without complications (6) Smoker Status: Chronic Current Visit: Yes Code(s): F17.200 - Nicotine dependence, unspecified, uncomplicated (7) Hidradenitis suppurativa Status: Chronic Current Visit: Yes Code(s): L73.2 - Hidradenitis suppurativa Comment: abdominal wall skin crease bilateral inguinal/medial thighs Type of Wound Date of Service: 01/16/20 Chief Complaint: Nonhealing ulcers lower abdominal wall and bilateral superior gluteal/perianal areas. History of Wound: Surgery 01/02/20 - Surgical preparation bilateral superior gluteal/perianal area with excisional debridement nonhealing hidradenitis ulcer and STSG reconstruction from left posterior flank (4.5 cm2) and placement of AmnioFill placental connective tissue powder (250 mg). Surgery 07/29/19 - surgical preparation bilateral superior gluteal/perianal area with excision necrotizing hidradenitis abscess (143 cm2). Surgery 07/19/19 - surgical preparation abdominal wall with excisional debridement skin and subcutaneous tissue and fascia necrotizing soft tissue hidradenitis infection and abdominal pannculectomy. Compression dressing removed today (01/09/20) and autograft shows no vascularization. Will order HBOT to see if we can salvage the skin graft. Wound Care -Collagen hydrogel to the skin graft area and the right flank donor site. He has increased opening of the ulcer this week. Waiting for approval for HBOT. Operative culture from 01/02/20 negative for bacterial growth. Operative culture 07/29/19 - Anaerobic cocci and preoperatively E coli, Coag negative Staph, and Gram positive kaylah. He was discharged on Augmentin and has finished them. Culture from 07/19/19 surgery showed Streptococcus anginosus and Actinomyces meyeri. Wound culture from 11/28/2019 positive for Klebsiella pneumoniae sp pneum, Enterococcus faecalis, Staphylococcus epidermidis, Corynebacterium amycolatum. He was placed on Levaquin and Augmentin. Prealbumin from 07/29/19 was 7.6. Encourage nutritional supplementation with protein to help the healing process. He has started to have intermittent flare ups in his bilateral inguinal and upper medial thigh areas that responded to Doxycycline. He has complained about pelvic floor pain and was referred for pelvic floor therapy in [place]. Today he denies fever. His appetite is better. Progress of Wound: Surgery for skin graft on 01/02/20. Skin graft shows some compromise. Will order HBOT to try to salvage the skin graft. Lower abdominal incision still with a small opening. - Physical Exam Vital Signs Temp Pulse Resp BP 98.9 F 102 H 16 158/92 H 01/16/20 13:15 01/16/20 13:15 01/16/20 13:15 01/16/20 13:15 General: Alert, Oriented x3, Cooperative HEENT: Atraumatic Oral: Moist Mucosa Lungs: Normal air movement Cardiovascular: Regular rate Abdomen: Soft Skin: Ulcer/ Wound - sacral skin graft with increase size of ulcer surrounding skin graft. Left flank donor site incision dry and intact Wound Measurements and Assessment WC - Nurse 1 - General Ulcer Measurement Start: 01/09/20 13:50 Freq: Status: Active Protocol: Activity Type Activity Date Activity User E-Sign Co-Sign Detail Recorded Client Recorded Date Recorded By Document 01/16/20 13:15 [facility] [id number] 01/16/20 13:24 [facility] 01/16/20 13:15 Wound Center Nurse 1 [Ulcer Assessment] 5. lower mid abd -Combined with other wound No -Current Size (cm) - Length 0.1 -Current Size (cm) - Width 0.3 -Current Size (cm) - Depth 0.3 -Total Square Cm 0.03 -Photo Taken Yes -Tunneling No -Undermining/Tunneling No -Circular Undermining No -Exudate Amt Small -Exudate Type Serosanguineous -Wound Margin Flat & Intact -Granulation Amt Small (1-33%) -Granulation Quality [place] -Slough/Fibrin Yes -Necrosis Amt Small (1-33%) -Necrotic Tissue Type Adherent Slough -Structure Exposed N/A -Texture (Kassandra-wound Skin Appearance) Assessed, Scarring -Moisture (Kassandra-wound Skin Appearance Assessed ) -Color (Kassandra-wound Skin Appearance) Assessed -Temperature (Kassandra-wound Skin No Abnormality Appearance) (Pt Warm) -Tenderness on Palpation (Kassandra-wound No Skin Appearance) -Ulcer Cleansing Wound Cleanser -Foul Odor after Cleansing No -Anesthetic Used 5% Lidocaine Gel #2 Sacral -Combined with other wound No -Current Size (cm) - Length 1.8 -Current Size (cm) - Width 4.3 -Current Size (cm) - Depth 0.1 -Total Square Cm 7.74 -Photo Taken Yes -Tunneling No -Undermining/Tunneling No -Circular Undermining No -Exudate Amt Small -Exudate Type Serosanguineous -Wound Margin Flat & Intact -Granulation Amt Medium (34-66%) -Granulation Quality [place],Red -Slough/Fibrin Yes -Necrosis Amt Small (1-33%) -Necrotic Tissue Type Adherent Slough -Structure Exposed N/A -Texture (Kassandra-wound Skin Appearance) Assessed, Scarring -Moisture (Kassandra-wound Skin Appearance Assessed ) -Color (Kassandra-wound Skin Appearance) Assessed -Temperature (Kassandra-wound Skin No Abnormality Appearance) (Pt Warm) -Tenderness on Palpation (Kassandra-wound No Skin Appearance) -Ulcer Cleansing Wound Cleanser -Foul Odor after Cleansing No -Anesthetic Used 5% Lidocaine Gel WC - Nurse 2 - General Ulcer CM Notes Start: 01/09/20 13:50 Freq: Status: Active Protocol: Activity Type Activity Date Activity User E-Sign Co-Sign Detail Recorded Client Recorded Date Recorded By Document 01/16/20 13:36 TONG [id number] 01/16/20 13:41 TONG 01/16/20 13:36 Wound Center Nurse 2 [Procedure/Treatment] 5. lower mid abd -Time 13:37 -Correct Patient No -Correct Side, Site, Position No -Correct Procedure No -Procedure Performed No -Wound/Ulcer Outcome Not Healed #2 Sacral -Time 13:37 -Correct Patient Yes -Correct Side, Site, Position Yes -Correct Procedure Yes -Procedure Performed Yes -Type of Procedure Debridement -Clinical Debridement Selective -Post Debridement Size (cm) - Length 1.8 -Post Debridement Size (cm) - Width 4.3 -Post Debridement Size (cm) - Depth 0.1 -Total Square Cm 7.74 -Wound/Ulcer Outcome Not Healed -Ulcer Cleansing Rinsed/ Irrigated with Saline -Foul Odor after Cleansing No -Bioengineered Tissue No -Bleeding Controlled with Pressure -Offloading No -Treatment Response Procedure Tolerated Well [See Physician Procedure note for Specifics] Pain Scale: 0-10 Numeric [Pain] -Is Patient Pain Free? Yes Musculoskeletal: No Muscle Wasting Neurological: Neuro grossly intact Psych/Mental Status: Normal Affect, Appropriate Debridement Note Post-Debridement Measurements/Treatment WC - Nurse 2 - General Ulcer CM Notes Start: 01/09/20 13:50 Freq: Status: Active Protocol: Activity Type Activity Date Activity User E-Sign Co-Sign Detail Recorded Client Recorded Date Recorded By Document 01/09/20 14:30 [id number] 01/09/20 14:42 Document 01/16/20 13:36 [id number] 01/16/20 13:41 01/09/20 01/16/20 14:30 13:36 Wound Center Nurse 2 #6- LT UPPER BUTTOCK -Correct Patient No -Correct Side, Site, Position No -Correct Procedure No -Procedure Performed No 5. lower mid abd -Time 13:37 -Correct Patient No -Correct Side, Site, Position No -Correct Procedure No -Procedure Performed No -Wound/Ulcer Outcome Not Healed #2 Sacral -Time 13:37 -Correct Patient No Yes -Correct Side, Site, Position No Yes -Correct Procedure No Yes -Procedure Performed No Yes -Type of Procedure Debridement -Clinical Debridement Selective -Post Debridement Size (cm) - Length 1.8 -Post Debridement Size (cm) - Width 4.3 -Post Debridement Size (cm) - Depth 0.1 -Total Square Cm 7.74 -Wound/Ulcer Outcome Failed Graft Not Healed -Ulcer Cleansing Rinsed/ Rinsed/ Irrigated with Irrigated with Saline Saline -Foul Odor after Cleansing No No -Bioengineered Tissue No No -Bleeding Controlled with Pressure Pressure -Offloading No No -Treatment Response Procedure Procedure Tolerated Well Tolerated Well Pain Scale: 0-10 Numeric Is Patient Pain Free? Yes Yes Wound debrided: Sacral ulcer selective debridement surrounding skin graft Type of Debridement: Selective debridement Anesthesia Used: 5% Lidocaine Gel Depth: Down to and including healthy tissue, in the subcutaneous layer Percentage of wound debrided: 100 Instrument Used: 3mm curette Tissue Removed: Subcutaneous tissue and slough Severity: Limited To Skin Breakdown Amount of bleeding with debridement: Mild Bleeding Controlled with: Pressure Patient tolerated procedure well Assessment/Plan Clinical Impression(s) from Imaging Studies Chest X-Ray 01/12/20 08:40 IMPRESSION: Normal x-ray examination of the chest. Electronically Signed: Abdias Triston, at 12:49 EST , Service support , Active Problems (Last Reviewed 07/29/19 @ 00:[address] Tyron Yang MD) Chronic ulcer of buttock (Chronic) Skin graft (allograft) (autograft) failure (Acute) Skin allograft rejection (Acute) Other complications of skin graft (allograft) (autograft) (Acute) Diabetes (Chronic) Smoker (Chronic) Hidradenitis suppurativa (Chronic) abdominal wall skin crease bilateral inguinal/medial thighs Assessment: 1. Hidradenitis abscess bilateral superior gluteal/perianal area. 2. Hidradenitis abdominal wall. 3. Nonhealing hidradenitis ulcer bilateral superior gluteal/perianal area. 4. Hidradenitis ulcer abdominal wall, was healed, and developed a small abrasion. 5. Skin Graft Failure. 6. Complications of skin graft. 7. Diabetes Type 2. 8. Smoker. 5. Diabetes mellitus. 6. Smoker. 7. s/p surgery for surgical preparation abdominal wall with excisional debridement skin and subcutaneous tissue and fascia necrotizing soft tissue hidradenitis infection (492 cm2) and abdominal panniculectomy. 8. s/p surgical preparation bilateral superior gluteal/perianal area with excision necrotizing hidradenitis abscess (143 cm2). 9. Hidradenitis bilateral inguinal and medial upper thigh areas, stable. Plan: The abdominal wall ulcer appears to have fragile epithelization. Wound care is Collagen hydrogel to sacral ulcer. He has further Surgery 01/02/20 - Surgical preparation bilateral superior gluteal/perianal area with excisional debridement nonhealing hidradenitis ulcer and STSG reconstruction from left posterior flank (4.5 cm2) and placement of AmnioFill placental connective tissue powder (250 mg). Surgical wound culture was negative. Surgical compression dressing removed today. Skin graft is pale without vascular ingrowth. Will have patient apply antibiotic ointment daily and as needed. Since there is significant compromise of the skin graft, he would benefit from Hyperbaric Oxygen Therapy to help salvage the graft. He would require 30 treatments at 2 ROXANN for 90 minutes with no air breaks. Prealbumin from 01/03/20 was 21.9. HgA1C =8.3. He has concomitant pelvic floor pain that he is scheduled to see a therapist in [place] for evaluation and treatment on 12/27/19. Encouraged him to stop smoking as this could be deleterious to his wound healing. Follow up in 1 week. 111xxx-113xx: [id number] Global Visit
[2020-01-23 09:13] VITALS: BP 142/93; PULSE 94; RESP 16; TEMP 37.1; BMI 33.6
--- NOTE | 2020-01-23 09:55 | PCM.WC.PN ---
(1) Skin allograft rejection Status: Acute Code(s): T86.820 - Skin graft (allograft) rejection (2) Skin graft (allograft) (autograft) failure Status: Acute Code(s): T86.821 - Skin graft (allograft) (autograft) failure (3) Other complications of skin graft (allograft) (autograft) Status: Acute Code(s): T86.828 - Other complications of skin graft (allograft) (autograft) (4) Chronic ulcer of buttock Status: Chronic Code(s): L98.419 - Non-pressure chronic ulcer of buttock with unspecified severity (5) Diabetes Status: Chronic Code(s): E11.9 - Type 2 diabetes mellitus without complications (6) Smoker Status: Chronic Code(s): F17.200 - Nicotine dependence, unspecified, uncomplicated (7) Hidradenitis suppurativa Status: Chronic Code(s): L73.2 - Hidradenitis suppurativa Comment: abdominal wall skin crease bilateral inguinal/medial thighs Type of Wound Date of Service: 01/23/20 Chief Complaint: Nonhealing ulcers lower abdominal wall and bilateral superior gluteal/perianal areas. History of Wound: Surgery 01/02/20 - Surgical preparation bilateral superior gluteal/perianal area with excisional debridement nonhealing hidradenitis ulcer and STSG reconstruction from left posterior flank (4.5 cm2) and placement of AmnioFill placental connective tissue powder (250 mg). Surgery 07/29/19 - surgical preparation bilateral superior gluteal/perianal area with excision necrotizing hidradenitis abscess (143 cm2). Surgery 07/19/19 - surgical preparation abdominal wall with excisional debridement skin and subcutaneous tissue and fascia necrotizing soft tissue hidradenitis infection and abdominal pannculectomy. Compression dressing removed today (01/09/20) and autograft shows no vascularization. Will order HBOT to see if we can salvage the skin graft. Wound Care -Collagen hydrogel to the skin graft area and the right flank donor site. He has increased opening of the ulcer this week. Waiting for approval for HBOT. Operative culture from 01/02/20 negative for bacterial growth. Operative culture 07/29/19 - Anaerobic cocci and preoperatively E coli, Coag negative Staph, and Gram positive kaylah. He was discharged on Augmentin and has finished them. Culture from 07/19/19 surgery showed Streptococcus anginosus and Actinomyces meyeri. Wound culture from 11/28/2019 positive for Klebsiella pneumoniae sp pneum, Enterococcus faecalis, Staphylococcus epidermidis, Corynebacterium amycolatum. He was placed on Levaquin and Augmentin. Prealbumin from 07/29/19 was 7.6. Encourage nutritional supplementation with protein to help the healing process. He has started to have intermittent flare ups in his bilateral inguinal and upper medial thigh areas that responded to Doxycycline. He has complained about pelvic floor pain and was referred for pelvic floor therapy in [place]. Today he denies fever. His appetite is better. Progress of Wound: Surgery for skin graft on 01/02/20. Skin graft is compromised. Waiting for insurance to approve HBOT to help salvage the skin graft. Lower abdominal incision now healed. - Physical Exam Vital Signs Temp Pulse Resp BP 98.8 F 94 16 142/93 H 01/23/20 09:13 01/23/20 09:13 01/23/20 09:13 01/23/20 09:13 General: Alert, Oriented x3, Cooperative HEENT: Atraumatic Oral: Moist Mucosa Lungs: Normal air movement Cardiovascular: Regular rate Abdomen: Soft Extremities: Capillary Refill Less than 3 Seconds Skin: Ulcer/ Wound - Sacral ulcer with skin graft that has failed and is now mostly hanging off. Ucler into the subcutaneous tissue. Wound Measurements and Assessment WC - Nurse 1 - General Ulcer Measurement Start: 01/09/20 13:50 Freq: Status: Active Protocol: Activity Type Activity Date Activity User E-Sign Co-Sign Detail Recorded Client Recorded Date Recorded By Document 01/23/20 09:13 MW [id number] 01/23/20 09:19 MW 01/23/20 09:13 Wound Center Nurse 1 [Ulcer Assessment] 5. lower mid abd -Combined with other wound No -Current Size (cm) - Length 0.1 -Current Size (cm) - Width 0.1 -Current Size (cm) - Depth 0.1 -Total Square Cm 0.01 -Photo Taken No -Epithelialization None Present -Tunneling No -Undermining/Tunneling No -Circular Undermining No -Exudate Amt None Present -Wound Margin Flat & Intact -Granulation Amt None Present (0 %) -Granulation Quality N/A -Slough/Fibrin Yes -Necrosis Amt Small (1-33%) -Necrotic Tissue Type Adherent Slough -Structure Exposed N/A -Texture (Kassandra-wound Skin Appearance) Assessed, Scarring -Moisture (Kassandra-wound Skin Appearance Assessed,Dry/ ) Scaly -Color (Kassandra-wound Skin Appearance) No Abnormality, Assessed -Temperature (Kassandra-wound Skin No Abnormality Appearance) (Pt Warm) -Tenderness on Palpation (Kassandra-wound Yes Skin Appearance) -Ulcer Cleansing Rinsed/ Irrigated with Saline -Foul Odor after Cleansing No -Anesthetic Used 5% Lidocaine Gel #2 Sacral -Combined with other wound No -Current Size (cm) - Length 4.0 -Current Size (cm) - Width 1.5 -Current Size (cm) - Depth 0.1 -Total Square Cm 6.00 -Photo Taken No -Epithelialization None Present -Tunneling No -Undermining/Tunneling No -Circular Undermining No -Exudate Amt Small -Exudate Type Serosanguineous -Wound Margin Flat & Intact -Granulation Amt Medium (34-66%) -Granulation Quality Candy Kitchen -Slough/Fibrin Yes -Necrosis Amt Medium (34-66%) -Necrotic Tissue Type Adherent Slough -Structure Exposed N/A -Texture (Kassandra-wound Skin Appearance) No Abnormality, Assessed -Moisture (Kassandra-wound Skin Appearance No Abnormality, ) Maceration -Color (Kassandra-wound Skin Appearance) No Abnormality, Assessed -Temperature (Kassandra-wound Skin No Abnormality Appearance) (Pt Warm) -Tenderness on Palpation (Kassandra-wound Yes Skin Appearance) -Ulcer Cleansing soap and water -Foul Odor after Cleansing No -Anesthetic Used 5% Lidocaine Gel [Edema Assessment] -Lower Limb Edema Present No WC - Nurse 2 - General Ulcer CM Notes Start: 01/09/20 13:50 Freq: Status: Active Protocol: Activity Type Activity Date Activity User E-Sign Co-Sign Detail Recorded Client Recorded Date Recorded By Document 01/23/20 09:30 TOGN [id number] 01/23/20 09:32 TONG 01/23/20 09:30 Wound Center Nurse 2 [Procedure/Treatment] 5. lower mid abd -Correct Patient No -Correct Side, Site, Position No -Correct Procedure No -Procedure Performed No -Wound/Ulcer Outcome Healed- Epithelialized #2 Sacral -Time 09:31 -Correct Patient Yes -Correct Side, Site, Position Yes -Correct Procedure Yes -Procedure Performed Yes -Type of Procedure Debridement -Clinical Debridement Subcutaneous -Post Debridement Size (cm) - Length 4.0 -Post Debridement Size (cm) - Width 1.3 -Post Debridement Size (cm) - Depth 0.3 -Total Square Cm 5.20 -Wound/Ulcer Outcome Not Healed -Ulcer Cleansing Rinsed/ Irrigated with Saline -Foul Odor after Cleansing No -Bioengineered Tissue No -Bleeding Controlled with Pressure -Offloading No -Treatment Response Procedure Tolerated Well [See Physician Procedure note for Specifics] Pain Scale: 0-10 Numeric [Pain] -Is Patient Pain Free? Yes Musculoskeletal: No Tenderness to Palpation of Joints or Extremities Neurological: Neuro grossly intact Psych/Mental Status: Normal Affect, Appropriate Debridement Note Post-Debridement Measurements/Treatment WC - Nurse 2 - General Ulcer CM Notes Start: 01/09/20 13:50 Freq: Status: Active Protocol: Activity Type Activity Date Activity User E-Sign Co-Sign Detail Recorded Client Recorded Date Recorded By Document 01/09/20 14:30 [id number] 01/09/20 14:42 Document 01/16/20 13:36 [id number] 01/16/20 13:41 Document 01/23/20 09:30 [id number] 01/23/20 09:32 01/09/20 01/16/20 01/23/20 14:30 13:36 09:30 Wound Center Nurse 2 #6- LT UPPER BUTTOCK -Correct Patient No -Correct Side, Site, Position No -Correct Procedure No -Procedure Performed No 5. lower mid abd -Time 13:37 -Correct Patient No No -Correct Side, Site, Position No No -Correct Procedure No No -Procedure Performed No No -Wound/Ulcer Outcome Not Healed Healed- Epithelialized #2 Sacral -Time 13:37 09:31 -Correct Patient No Yes Yes -Correct Side, Site, Position No Yes Yes -Correct Procedure No Yes Yes -Procedure Performed No Yes Yes -Type of Procedure Debridement Debridement -Clinical Debridement Selective Subcutaneous -Post Debridement Size (cm) - Length 1.8 4.0 -Post Debridement Size (cm) - Width 4.3 1.3 -Post Debridement Size (cm) - Depth 0.1 0.3 -Total Square Cm 7.74 5.20 -Wound/Ulcer Outcome Failed Graft Not Healed Not Healed -Ulcer Cleansing Rinsed/ Rinsed/ Rinsed/ Irrigated with Irrigated with Irrigated with Saline Saline Saline -Foul Odor after Cleansing No No No -Bioengineered Tissue No No No -Bleeding Controlled with Pressure Pressure Pressure -Offloading No No No -Treatment Response Procedure Procedure Procedure Tolerated Well Tolerated Well Tolerated Well Pain Scale: 0-10 Numeric Is Patient Pain Free? Yes Yes Yes Wound debrided: sacral ulcer Laterality: Not Applicable Type of Debridement: Excisional debridement Anesthesia Used: 4% Lidocaine Solution, 5% Lidocaine Gel Depth: Down to and including healthy tissue, in the subcutaneous layer Percentage of wound debrided: 100 Instrument Used: 5mm curette Tissue Removed: Skin graft fell off, subcutaneous tissue and slough after debridement Severity: Fat Layer Exposed Amount of bleeding with debridement: Mild Bleeding Controlled with: Pressure Patient tolerated procedure well Assessment/Plan Clinical Impression(s) from Imaging Studies Chest X-Ray 01/12/20 08:40 IMPRESSION: Normal x-ray examination of the chest. Electronically Signed: Abdias Triston, at 12:49 EST , Service support , Assessment: 1. Hidradenitis abscess bilateral superior gluteal/perianal area. 2. Hidradenitis abdominal wall. 3. Nonhealing hidradenitis ulcer bilateral superior gluteal/perianal area. 4. Hidradenitis ulcer abdominal wall, was healed, and developed a small abrasion. 5. Skin Graft Failure. 6. Complications of skin graft. 7. Diabetes Type 2. 8. Smoker. 5. Diabetes mellitus. 6. Smoker. 7. s/p surgery for surgical preparation abdominal wall with excisional debridement skin and subcutaneous tissue and fascia necrotizing soft tissue hidradenitis infection (492 cm2) and abdominal panniculectomy. 8. s/p surgical preparation bilateral superior gluteal/perianal area with excision necrotizing hidradenitis abscess (143 cm2). 9. Hidradenitis bilateral inguinal and medial upper thigh areas, stable. Plan: The abdominal wall ulcer appears healed. His skin graft was hanging by one stitch, it is no longer attached. Ulcer under skin graft into the subcutaneous tissue. Wound care is now daily La[place], stop Collagen hydrogel to sacral ulcer. He has further Surgery 01/02/20 - Surgical preparation bilateral superior gluteal/perianal area with excisional debridement nonhealing hidradenitis ulcer and STSG reconstruction from left posterior flank (4.5 cm2) and placement of AmnioFill placental connective tissue powder (250 mg). Surgical wound culture was negative. He would benefit from Hyperbaric Oxygen Therapy but it has not been approved by his insurance. He would require 30 treatments at 2 ROXANN for 90 minutes with no air breaks. Prealbumin from 01/03/20 was 21.9. HgA1C =8.3. He has concomitant pelvic floor pain that he is scheduled to see a therapist in [place] for evaluation and treatment. He is having increased amount of pain. Renewed his Precocet (#21). PDMP reviewed. Encouraged him to stop smoking as this could be deleterious to his wound healing. Follow up in 1 week. [id number]: [id number] Global Visit
[2020-01-30 10:54] VITALS: BP 124/87; PULSE 85; RESP 20; TEMP 36.8; BMI 33.6
--- NOTE | 2020-01-30 17:22 | PN.PCM_ITS ---
Type of Wound Date of Service: 01/30/20 Chief Complaint: Nonhealing hidradenitis ulcer bilateral superior gluteal/perianal area with recent skin grafting and graft compromise. History of Wound: Surgery 01/02/20 - Surgical preparation bilateral superior gluteal/perianal area with excisional debridement nonhealing hidradenitis ulcer and STSG reconstruction from left posterior flank (4.5 cm2) and placement of AmnioFill placental connective tissue powder (250 mg). There was some initial compromise on the skin graft. HBO Therapy has been ordered to salvage the skin graft. Awaiting insurance approval. Wound Care - Laurel. Operative culture from 01/02/20 was negative for bacterial growth. He was treated perioperatively with Levaquin and Augmentin from a preop wound culture on 11/28/2019 that showed Klebsiella pneumoniae sp pneum, Enterococcus faecalis, MRSE, and Corynebacterium amycolatum and has finished them. Prealbumin from 01/03/20 was 21.9. Encourage nutritional supplementation with protein to help the healing process. HgbA1c from 01/03/20 was 8.3. He has had intermittent flare ups in his bilateral inguinal and upper medial thigh areas that responded to Doxycycline. He has complained about pelvic floor pain and was referred for pelvic floor therapy in [place]. He hasn't gone yet, but he states his pelvic floor pain is better. Today he denies fever. His appetite is better. Progress of Wound: Improved. Waiting for insurance to approve HBOT to help salvage the skin graft. - Physical Exam Vital Signs Temp Pulse Resp BP 98.2 F 85 20 H 124/87 H 01/30/20 10:54 01/30/20 10:54 01/30/20 10:54 01/30/20 10:54 Skin: - - Hidradenitis in bilateral inguinal and medial thigh areas are stable. Wound Measurements and Assessment WC - Nurse 1 - General Ulcer Measurement Start: 01/09/20 13:50 Freq: Status: Active Protocol: Activity Type Activity Date Activity User E-Sign Co-Sign Detail Recorded Client Recorded Date Recorded By Document 01/30/20 10:54 DL [id number] 01/30/20 11:01 DL 01/30/20 10:54 Wound Center Nurse 1 [Ulcer Assessment] #2 Sacral -Current Size (cm) - Length 1.3 -Current Size (cm) - Width 0.5 -Current Size (cm) - Depth 0.1 -Total Square Cm 0.65 -Photo Taken No -Exudate Amt Small -Exudate Type Serosanguineous -Wound Margin Distinct, Outline Attached -Granulation Amt Large (67-100%) -Granulation Quality Red -Necrosis Amt Small (1-33%) -Necrotic Tissue Type Adherent Slough -Texture (Kassandra-wound Skin Appearance) Scarring -Moisture (Kassandra-wound Skin Appearance No Abnormality ) -Color (Kassandra-wound Skin Appearance) No Abnormality -Temperature (Kassandra-wound Skin No Abnormality Appearance) (Pt Warm) -Tenderness on Palpation (Kassandra-wound No Skin Appearance) -Ulcer Cleansing Rinsed/ Irrigated with Saline -Foul Odor after Cleansing No -Anesthetic Used 4% Lidocaine Solution - Nurse 2 - General Ulcer CM Notes Start: 01/09/20 13:50 Freq: Status: Active Protocol: Activity Type Activity Date Activity User E-Sign Co-Sign Detail Recorded Client Recorded Date Recorded By Document 01/30/20 11:13 [id number] 01/30/20 11:14 01/30/20 11:13 Wound Center Nurse 2 [Procedure/Treatment] -Time 11:14 -Correct Patient Yes -Correct Side, Site, Position Yes -Correct Procedure Yes -Procedure Performed Yes -Type of Procedure Debridement -Clinical Debridement Subcutaneous -Post Debridement Size (cm) - Length 1.4 -Post Debridement Size (cm) - Width 0.5 -Post Debridement Size (cm) - Depth 0.1 -Total Square Cm 0.70 -Wound/Ulcer Outcome Not Healed -Ulcer Cleansing Rinsed/ Irrigated with Saline -Foul Odor after Cleansing No -Bioengineered Tissue No -Bleeding Controlled with Pressure -Offloading No -Treatment Response Procedure Tolerated Well [See Physician Procedure note for Specifics] Pain Scale: 0-10 Numeric [Pain] -Is Patient Pain Free? Yes Debridement Note Post-Debridement Measurements/Treatment - Nurse 2 - General Ulcer CM Notes Start: 01/09/20 13:50 Freq: Status: Active Protocol: Activity Type Activity Date Activity User E-Sign Co-Sign Detail Recorded Client Recorded Date Recorded By Document 01/09/20 14:30 [id number] 01/09/20 14:42 Document 01/16/20 13:36 [id number] 01/16/20 13:41 Document 01/23/20 09:30 [id number] 01/23/20 09:32 Document 01/30/20 11:13 [id number] 01/30/20 11:14 JF 01/09/20 01/16/20 01/23/20 14:30 13:36 09:30 Wound Center Nurse 2 #6- LT UPPER BUTTOCK -Correct Patient No -Correct Side, Site, Position No -Correct Procedure No -Procedure Performed No 5. lower mid abd -Time 13:37 -Correct Patient No No -Correct Side, Site, Position No No -Correct Procedure No No -Procedure Performed No No -Wound/Ulcer Outcome Not Healed Healed- Epithelialized #2 Sacral -Time 13:37 09:31 -Correct Patient No Yes Yes -Correct Side, Site, Position No Yes Yes -Correct Procedure No Yes Yes -Procedure Performed No Yes Yes -Type of Procedure Debridement Debridement -Clinical Debridement Selective Subcutaneous -Post Debridement Size (cm) - Length 1.8 4.0 -Post Debridement Size (cm) - Width 4.3 1.3 -Post Debridement Size (cm) - Depth 0.1 0.3 -Total Square Cm 7.74 5.20 -Wound/Ulcer Outcome Failed Graft Not Healed Not Healed -Ulcer Cleansing Rinsed/ Rinsed/ Rinsed/ Irrigated with Irrigated with Irrigated with Saline Saline Saline -Foul Odor after Cleansing No No No -Bioengineered Tissue No No No -Bleeding Controlled with Pressure Pressure Pressure -Offloading No No No -Treatment Response Procedure Procedure Procedure Tolerated Well Tolerated Well Tolerated Well Pain Scale: 0-10 Numeric Is Patient Pain Free? Yes Yes Yes 01/30/20 11:13 Wound Center Nurse 2 #6- LT UPPER BUTTOCK -Correct Patient -Correct Side, Site, Position -Correct Procedure -Procedure Performed 5. lower mid abd -Time -Correct Patient -Correct Side, Site, Position -Correct Procedure -Procedure Performed -Wound/Ulcer Outcome #2 Bilateral superior gluteal/perianal area -Time 11:14 -Correct Patient Yes -Correct Side, Site, Position Yes -Correct Procedure Yes -Procedure Performed Yes -Type of Procedure Debridement -Clinical Debridement Subcutaneous -Post Debridement Size (cm) - Length 1.4 -Post Debridement Size (cm) - Width 0.5 -Post Debridement Size (cm) - Depth 0.1 -Total Square Cm 0.70 -Wound/Ulcer Outcome Not Healed -Ulcer Cleansing Rinsed/ Irrigated with Saline -Foul Odor after Cleansing No -Bioengineered Tissue No -Bleeding Controlled with Pressure -Offloading No -Treatment Response Procedure Tolerated Well Pain Scale: 0-10 Numeric Is Patient Pain Free? Yes Wound debrided: #2 Bilateral superior gluteal/perianal area. Laterality: Not Applicable Wound Grade/Stage: 2. Type of Debridement: Excisional debridement Anesthesia Used: 4% Lidocaine Solution Depth: Down to and including healthy tissue, in the subcutaneous layer Percentage of wound debrided: 100 Instrument Used: 3mm curette Tissue Removed: subcutanenous tissue. Severity: Fat Layer Exposed Amount of bleeding with debridement: Mild Bleeding Controlled with: Pressure Patient tolerated procedure well Assessment/Plan Assessment: 1. Nonhealing hidradenitis ulcer bilateral superior gluteal/perianal area with recent skin grafting and graft compromise. 2. Compromised skin graft. 3. Hidradenitis. 4. Diabetes. 5. Smoker. 6. Hidradenitis bilateral inguinal and medial upper thigh areas, stable. Plan: Continue Laurel dressing changes daily. Much improvement is noted probably from the AmnioFill that was placed in the ulcer under the skin graft at the time of surgery. Surgical wound culture was negative and he was treated with Levaquin and Augmentin from a preop culture on 11/28/19 that showed Klebsiella pneumoniae sp pneum, Enterococcus faecalis, MRSE, and Corynebacterium amycolatum and has finished them. With the compromised graft, he would benefit from Hyperbaric Oxygen Therapy but it has not been approved by his insurance. Prealbumin from 01/03/20 was 21.9. Encourage nutritional supplementation with protein to help the healing process. HgA1C from 01/03/20 was 8.3. He has concomitant pelvic floor pain that he is scheduled to see a therapist in [place] for evaluation and treatment. He hasn't gone yet and his pelvic pain is better. Encouraged him to stop smoking as this could be deleterious to his wou nd healing. Follow up one week. [id number]: [id number] Global Visit - ICD-10 - Z48.89, L98.419, L73.2, T86.828, E11.9, F17.200
[2020-02-06 11:21] VITALS: BP 129/79; PULSE 87; RESP 18; TEMP 36.9; BMI 33.6
--- NOTE | 2020-02-06 13:01 | PCM.WC.PN ---
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 Code(s): T86.821 - Skin graft (allograft) (autograft) failure (5) Other complications of skin graft (allograft) (autograft) Status: Chronic Code(s): T86.828 - Other complications of skin graft (allograft) (autograft) (6) Diabetes Status: Chronic Code(s): E11.9 - Type 2 diabetes mellitus without complications (7) Smoker Status: Chronic Code(s): F17.200 - Nicotine dependence, unspecified, uncomplicated (8) Hidradenitis suppurativa Status: Chronic Code(s): L73.2 - Hidradenitis suppurativa Comment: abdominal wall skin crease bilateral inguinal/medial thighs Type of Wound Date of Service: 02/06/20 Chief Complaint: Nonhealing hidradenitis ulcer bilateral superior gluteal/perianal area with recent skin grafting and graft compromise. History of Wound: Surgery 01/02/20 - Surgical preparation bilateral superior gluteal/perianal area with excisional debridement nonhealing hidradenitis ulcer and STSG reconstruction from left posterior flank (4.5 cm2) and placement of AmnioFill placental connective tissue powder (250 mg). There is compromise on the skin graft. HBO Therapy has been ordered to salvage the skin graft. Awaiting insurance approval. Abdominal ulcer in center of abdomen has reopened (most likely from skin on skin rubbing). Wound Care - Laurel to both ulcers. Operative culture from 01/02/20 was negative for bacterial growth. He was treated perioperatively with Levaquin and Augmentin from a preop wound culture on 11/28/2019 that showed Klebsiella pneumoniae sp pneum, Enterococcus faecalis, MRSE, and Corynebacterium amycolatum and has finished them. Prealbumin from 01/03/20 was 21.9. Encourage nutritional supplementation with protein to help the healing process. HgbA1c from 01/03/20 was 8.3. He has had intermittent flare ups in his bilateral inguinal and upper medial thigh areas that responded to Doxycycline. He has complained about pelvic floor pain and was referred for pelvic floor therapy in [place]. He hasn't gone yet due to various issues including Covid19, but he states his pelvic floor pain is better. Today he denies fever. His appetite is better. Progress of Wound: Improved. Waiting for insurance to approve HBOT to help salvage the skin graft. - Physical Exam Vital Signs Temp Pulse Resp BP 98.4 F 87 18 129/79 H 02/06/20 11:21 02/06/20 11:21 02/06/20 11:21 02/06/20 11:21 General: Alert, Oriented x3, Cooperative HEENT: Atraumatic Oral: Moist Mucosa Lungs: Normal air movement Cardiovascular: Regular rate Abdomen: Soft Extremities: Capillary Refill Less than 3 Seconds Skin: Ulcer/ Wound - Ulcer in center lower abdomen reopened. Sacral ulcer. Wound Measurements and Assessment WC - Nurse 1 - General Ulcer Measurement Start: 01/09/20 13:50 Freq: Status: Active Protocol: Activity Type Activity Date Activity User E-Sign Co-Sign Detail Recorded Client Recorded Date Recorded By Document 02/06/20 11:21 [id number] 02/06/20 11:27 RB 02/06/20 11:21 Wound Center Nurse 1 [Ulcer Assessment] 7. mid lower abd cluster -Combined with other wound No -Current Size (cm) - Length 1 -Current Size (cm) - Width 1.7 -Current Size (cm) - Depth 0.3 -Total Square Cm 1.7 -Photo Taken Yes -Tunneling No -Undermining/Tunneling No -Circular Undermining No -Exudate Amt Small -Exudate Type Serosanguineous -Wound Margin Flat & Intact -Granulation Amt Medium (34-66%) -Granulation Quality Red -Slough/Fibrin Yes -Necrosis Amt Small (1-33%) -Necrotic Tissue Type Adherent Slough -Structure Exposed N/A -Texture (Kassandra-wound Skin Appearance) Assessed, Scarring -Moisture (Kassandra-wound Skin Appearance Assessed ) -Color (Kassandra-wound Skin Appearance) Assessed -Temperature (Kassandra-wound Skin No Abnormality Appearance) (Pt Warm) -Tenderness on Palpation (Kassandra-wound No Skin Appearance) -Ulcer Cleansing Wound Cleanser -Foul Odor after Cleansing No -Anesthetic Used 5% Lidocaine Gel #2 Sacral -Combined with other wound No -Current Size (cm) - Length 0.5 -Current Size (cm) - Width 0.2 -Current Size (cm) - Depth 0.3 -Total Square Cm 0.10 -Photo Taken No -Tunneling No -Undermining/Tunneling No -Circular Undermining No -Exudate Amt Small -Exudate Type Serosanguineous -Wound Margin Flat & Intact -Granulation Amt Medium (34-66%) -Granulation Quality [place] -Slough/Fibrin Yes -Necrosis Amt Small (1-33%) -Necrotic Tissue Type Adherent Slough -Structure Exposed N/A -Texture (Kassandra-wound Skin Appearance) Assessed, Scarring -Moisture (Kassandra-wound Skin Appearance Assessed ) -Color (Kassandra-wound Skin Appearance) Assessed -Temperature (Kassandra-wound Skin No Abnormality Appearance) (Pt Warm) -Tenderness on Palpation (Kassandra-wound No Skin Appearance) -Ulcer Cleansing Wound Cleanser -Foul Odor after Cleansing No -Anesthetic Used 5% Lidocaine Gel WC - Nurse 2 - General Ulcer CM Notes Start: 01/09/20 13:50 Freq: Status: Active Protocol: Activity Type Activity Date Activity User E-Sign Co-Sign Detail Recorded Client Recorded Date Recorded By Document 02/06/20 11:51 MW [id number] 02/06/20 11:59 MW 02/06/20 11:51 Wound Center Nurse 2 [Procedure/Treatment] 7. mid lower abd cluster -Time 11:53 -Correct Patient Yes -Correct Side, Site, Position Yes -Correct Procedure Yes -Procedure Performed Yes -Type of Procedure Debridement -Clinical Debridement Subcutaneous -Post Debridement Size (cm) - Length 1.3 -Post Debridement Size (cm) - Width 1.5 -Post Debridement Size (cm) - Depth 0.3 -Total Square Cm 1.95 -Wound/Ulcer Outcome Not Healed -Ulcer Cleansing Rinsed/ Irrigated with Saline -Foul Odor after Cleansing No -Bioengineered Tissue No -Bleeding Controlled with Pressure -Offloading No -Treatment Response Procedure Tolerated Well #2 Sacral -Time 11:54 -Correct Patient Yes -Correct Side, Site, Position Yes -Correct Procedure Yes -Procedure Performed Yes -Type of Procedure Debridement -Clinical Debridement Subcutaneous -Post Debridement Size (cm) - Length 0.9 -Post Debridement Size (cm) - Width 0.5 -Post Debridement Size (cm) - Depth 0.2 -Total Square Cm 0.45 -Wound/Ulcer Outcome Not Healed -Ulcer Cleansing Rinsed/ Irrigated with Saline -Foul Odor after Cleansing No -Bioengineered Tissue No -Bleeding Controlled with Pressure -Offloading No -Treatment Response Procedure Tolerated Well [See Physician Procedure note for Specifics] Pain Scale: 0-10 Numeric [Pain] -Is Patient Pain Free? Yes Musculoskeletal: No Tenderness to Palpation of Joints or Extremities Neurological: Neuro grossly intact Psych/Mental Status: Normal Affect, Appropriate Debridement Note Post-Debridement Measurements/Treatment WC - Nurse 2 - General Ulcer CM Notes Start: 01/09/20 13:50 Freq: Status: Active Protocol: Activity Type Activity Date Activity User E-Sign Co-Sign Detail Recorded Client Recorded Date Recorded By Document 01/09/20 14:30 [id number] 01/09/20 14:42 Document 01/16/20 13:36 [id number] 01/16/20 13:41 Document 01/23/20 09:30 JF [id number] 01/23/20 09:32 Document 01/30/20 11:13 JF [id number] 01/30/20 11:14 Document 02/06/20 11:51 MW [id number] 02/06/20 11:59 MW 01/09/20 01/16/20 01/23/20 14:30 13:36 09:30 Wound Center Nurse 2 7. mid lower abd cluster -Time -Correct Patient -Correct Side, Site, Position -Correct Procedure -Procedure Performed -Type of Procedure -Clinical Debridement -Post Debridement Size (cm) - Length -Post Debridement Size (cm) - Width -Post Debridement Size (cm) - Depth -Total Square Cm -Wound/Ulcer Outcome -Ulcer Cleansing -Foul Odor after Cleansing -Bioengineered Tissue -Bleeding Controlled with -Offloading -Treatment Response #6- LT UPPER BUTTOCK -Correct Patient No -Correct Side, Site, Position No -Correct Procedure No -Procedure Performed No 5. lower mid abd -Time 13:37 -Correct Patient No No -Correct Side, Site, Position No No -Correct Procedure No No -Procedure Performed No No -Wound/Ulcer Outcome Not Healed Healed- Epithelialized #2 Sacral -Time 13:37 09:31 -Correct Patient No Yes Yes -Correct Side, Site, Position No Yes Yes -Correct Procedure No Yes Yes -Procedure Performed No Yes Yes -Type of Procedure Debridement Debridement -Clinical Debridement Selective Subcutaneous -Post Debridement Size (cm) - Length 1.8 4.0 -Post Debridement Size (cm) - Width 4.3 1.3 -Post Debridement Size (cm) - Depth 0.1 0.3 -Total Square Cm 7.74 5.20 -Wound/Ulcer Outcome Failed Graft Not Healed Not Healed -Ulcer Cleansing Rinsed/ Rinsed/ Rinsed/ Irrigated with Irrigated with Irrigated with Saline Saline Saline -Foul Odor after Cleansing No No No -Bioengineered Tissue No No No -Bleeding Controlled with Pressure Pressure Pressure -Offloading No No No -Treatment Response Procedure Procedure Procedure Tolerated Well Tolerated Well Tolerated Well Pain Scale: 0-10 Numeric Is Patient Pain Free? Yes Yes Yes 01/30/20 02/06/20 11:13 11:51 Wound Center Nurse 2 7. mid lower abd cluster -Time 11:53 -Correct Patient Yes -Correct Side, Site, Position Yes -Correct Procedure Yes -Procedure Performed Yes -Type of Procedure Debridement -Clinical Debridement Subcutaneous -Post Debridement Size (cm) - Length 1.3 -Post Debridement Size (cm) - Width 1.5 -Post Debridement Size (cm) - Depth 0.3 -Total Square Cm 1.95 -Wound/Ulcer Outcome Not Healed -Ulcer Cleansing Rinsed/ Irrigated with Saline -Foul Odor after Cleansing No -Bioengineered Tissue No -Bleeding Controlled with Pressure -Offloading No -Treatment Response Procedure Tolerated Well #6- LT UPPER BUTTOCK -Correct Patient -Correct Side, Site, Position -Correct Procedure -Procedure Performed 5. lower mid abd -Time -Correct Patient -Correct Side, Site, Position -Correct Procedure -Procedure Performed -Wound/Ulcer Outcome #2 Sacral -Time 11:14 11:54 -Correct Patient Yes Yes -Correct Side, Site, Position Yes Yes -Correct Procedure Yes Yes -Procedure Performed Yes Yes -Type of Procedure Debridement Debridement -Clinical Debridement Subcutaneous Subcutaneous -Post Debridement Size (cm) - Length 1.4 0.9 -Post Debridement Size (cm) - Width 0.5 0.5 -Post Debridement Size (cm) - Depth 0.1 0.2 -Total Square Cm 0.70 0.45 -Wound/Ulcer Outcome Not Healed Not Healed -Ulcer Cleansing Rinsed/ Rinsed/ Irrigated with Irrigated with Saline Saline -Foul Odor after Cleansing No No -Bioengineered Tissue No No -Bleeding Controlled with Pressure Pressure -Offloading No No -Treatment Response Procedure Procedure Tolerated Well Tolerated Well Pain Scale: 0-10 Numeric Is Patient Pain Free? Yes Yes Wound debrided: Center lower abdominal ulcer Type of Debridement: Excisional debridement Anesthesia Used: 4% Lidocaine Solution, 5% Lidocaine Gel Depth: Down to and including healthy tissue, in the subcutaneous layer Percentage of wound debrided: 100 Instrument Used: 3mm curette Tissue Removed: Subcutaneous tissue and slough Severity: Fat Layer Exposed Amount of bleeding with debridement: Mild Bleeding Controlled with: Pressure Patient tolerated procedure well - Additional Wound Wound debrided: Sacral ulcer Type of Debridement: Excisional debridement Anesthesia Used: 4% Lidocaine Solution, 5% Lidocaine Gel Depth: Down to and including healthy tissue, in the subcutaneous layer Percentage of wound debrided: 100 Instrument Used: 3mm curette Tissue Removed: Subcutaneous tissue and slough Severity: Fat Layer Exposed Amount of bleeding with debridement: Mild Bleeding Controlled with: Pressure Patient tolerated procedure: Patient tolerated procedure well Assessment/Plan Clinical Impression(s) from Imaging Studies Chest X-Ray 01/12/20 08:40 IMPRESSION: Normal x-ray examination of the chest. Electronically Signed: Abdias Goldstein, at 12:49 EST , Service support , Assessment: 1. Nonhealing hidradenitis ulcer bilateral superior gluteal/perianal area with recent skin grafting and graft compromise. 2. Compromised skin graft. 3. Hidradenitis. 4. Diabetes. 5. Smoker. 6. Hidradenitis bilateral inguinal and medial upper thigh areas, stable. Plan: Continue moistened Laurel dressing changes daily to both the sacral and lower mid abdominal ulcers. Much improvement is noted probably from the AmnioFill that was placed in the ulcer under the skin graft at the time of surgery. Lower abdominal ulcer reopened, most likely from rubbing skin on skin. Will place gauze dressing in skin fold to prevent the skin rubbing. Surgical wound culture was negative and he was treated with Levaquin and Augmentin from a preop culture on 11/28/19 that showed Klebsiella pneumoniae sp pneum, Enterococcus faecalis, MRSE, and Corynebacterium amycolatum and has finished them. With the compromised graft, he would benefit from Hyperbaric Oxygen Therapy but it has not been approved by his insurance. Prealbumin from 01/03/20 was 21.9. Encourage nutritional supplementation with protein to help the healing process. HgA1C from 01/03/20 was 8.3. He has concomitant pelvic floor pain that he is scheduled to see a therapist in [place] for evaluation and treatment. He hasn't gone yet and his pelvic pain is better. Encouraged him to stop smoking as this could be deleterious to his wound healing. Follow up two weeks. [id number]: [id number] Global Visit
== END 2020-02-07 23:59 ==
LOC: WC 11:00
PROVIDERS: Family Provider Internal Medicine; PCP Internal Medicine; Referring Provider Nurse Practitioner Family; Visit Provider Nurse Practitioner Family
DX: L73.2 Hidradenitis suppurativa (principal); F17.200 Nicotine dependence, unspecified, uncomplicated; E11.9 Type 2 diabetes mellitus without complications; L98.491 Non-pressure chronic ulcer of skin of other sites limited to breakdown of skin; T86.820 Skin graft (allograft) rejection; Y83.8 Other surgical procedures as the cause of abnormal reaction of the patient, or of later complication, without mention of misadventure at the time of the procedure; L98.492 Non-pressure chronic ulcer of skin of other sites with fat layer exposed
CPT/HCPCS: 11042; 71046; 97597; 99213; G0463

== ENCOUNTER 2020-03-05 13:00 | Outpatient (RCR) | payer OTHER, SELFPAY ==
[2020-02-08 00:28] VITALS: BP 129/79; PULSE 87; RESP 18; TEMP 36.9
[2020-02-20 13:18] VITALS: BP 135/91; PULSE 100; RESP 20; TEMP 36.8; BMI 33.6
--- NOTE | 2020-02-20 15:00 | PCM.WC.PN ---
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: Chronic Current Visit: Yes Code(s): L98.492 - Non-pressure chronic ulcer of skin of other sites with fat layer exposed (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 Current Visit: Yes Code(s): T86.821 - 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 Current Visit: Yes Code(s): T86.820 - Skin graft (allograft) rejection (7) 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 History of Wound: Surgery 01/02/20 - Surgical preparation bilateral superior gluteal/perianal area with excisional debridement nonhealing hidradenitis ulcer and STSG reconstruction from left posterior flank (4.5 cm2) and placement of AmnioFill placental connective tissue powder (250 mg). There is compromise on the skin graft but it is healed today. Abdominal ulcer in center of abdomen remains opened and he has new area on his perineum that he had to have drained on 02/16/20 at urgent care and they placed him on Levaquin and Flagyl. Wound Care - Laurel the abdominal ulcer. Encouraged warm compresses or sitz baths to the perineum to help with the drainage of that area. Can cover with dry gauze to help absorb the drainage. Operative culture from 01/02/20 was negative for bacterial growth. He was treated perioperatively with Levaquin and Augmentin from a preop wound culture on 11/28/2019 that showed Klebsiella pneumoniae sp pneum, Enterococcus faecalis, MRSE, and Corynebacterium amycolatum and has finished them. Prealbumin from 01/03/20 was 21.9. Encourage nutritional supplementation with protein to help the healing process. HgbA1c from 01/03/20 was 8.3. He has had intermittent flare ups in his bilateral inguinal and upper medial thigh areas that responded to Doxycycline. He has complained about pelvic floor pain and was referred for pelvic floor therapy in [place]. He hasn't gone yet due to various issues including Covid19, but he states his pelvic floor pain is better. Today he denies fever. His appetite is better. Progress of Wound: Improved. Waiting for insurance to approve HBOT to help salvage the skin graft. - Physical Exam Vital Signs Temp Pulse Resp BP 98.2 F 100 20 H 135/91 H 02/20/20 13:18 02/20/20 13:18 02/20/20 13:18 02/20/20 13:18 General: Alert, Oriented x3, Cooperative HEENT: Atraumatic, PERRLA Oral: Moist Mucosa Lungs: Normal air movement Cardiovascular: Regular rate Abdomen: Soft Extremities: Capillary Refill Less than 3 Seconds Skin: Ulcer/ Wound - Sacral ulcer is healed today. Lower abdominal ulcer is beefy pink and stable. New area on perineum that was drained a few days ago and two other areas that are draining on their own. Skin is not red but there is firmness with palpation where the abscess was drained. Wound Measurements and Assessment WC - Nurse 1 - General Ulcer Measurement Start: 02/20/20 13:18 Freq: Status: Active Protocol: Activity Type Activity Date Activity User E-Sign Co-Sign Detail Recorded Client Recorded Date Recorded By Document 02/20/20 13:18 DL [id number] 02/20/20 13:31 DL 02/20/20 13:18 Wound Center Nurse 1 [Ulcer Assessment] #7 L Buttocks -Current Size (cm) - Length 0.4 -Current Size (cm) - Width 0.4 -Current Size (cm) - Depth 0.2 -Total Square Cm 0.16 -Photo Taken Yes -Exudate Amt None Present -Wound Margin Flat & Intact -Granulation Amt None Present (0 %) -Necrosis Amt Small (1-33%) -Necrotic Tissue Type Adherent Slough -Structure Exposed N/A -Texture (Kassandra-wound Skin Appearance) Scarring -Moisture (Kassandra-wound Skin Appearance No Abnormality ) -Color (Kassandra-wound Skin Appearance) Erythema -Temperature (Kassandra-wound Skin No Abnormality Appearance) (Pt Warm) -Tenderness on Palpation (Kassandra-wound No Skin Appearance) -Ulcer Cleansing Wound Cleanser -Foul Odor after Cleansing No -Anesthetic Used 5% Lidocaine Gel 7. mid lower abd cluster -Current Size (cm) - Length 0.6 -Current Size (cm) - Width 0.5 -Current Size (cm) - Depth 0.1 -Total Square Cm 0.30 -Photo Taken No -Exudate Amt None Present -Wound Margin Flat & Intact -Granulation Amt Large (67-100%) -Granulation Quality [place] -Necrosis Amt None Present (0 %) -Structure Exposed N/A -Texture (Kassandra-wound Skin Appearance) Scarring -Moisture (Kassandra-wound Skin Appearance No Abnormality ) -Color (Kassandra-wound Skin Appearance) No Abnormality -Temperature (Kassandra-wound Skin No Abnormality Appearance) (Pt Warm) -Tenderness on Palpation (Kassandra-wound No Skin Appearance) -Ulcer Cleansing Rinsed/ Irrigated with Saline -Foul Odor after Cleansing No -Anesthetic Used 5% Lidocaine Gel #2 Sacral -Current Size (cm) - Length 0.1 -Current Size (cm) - Width 0.1 -Current Size (cm) - Depth 0.1 -Total Square Cm 0.01 -Photo Taken Yes -Exudate Amt None Present -Wound Margin Flat & Intact -Granulation Amt Large (67-100%) -Granulation Quality [place] -Necrosis Amt None Present (0 %) -Structure Exposed N/A -Texture (Kassandra-wound Skin Appearance) Scarring -Moisture (Kassandra-wound Skin Appearance No Abnormality ) -Color (Kassandra-wound Skin Appearance) No Abnormality -Temperature (Kassandra-wound Skin No Abnormality Appearance) (Pt Warm) -Tenderness on Palpation (Kassandra-wound No Skin Appearance) -Ulcer Cleansing Wound Cleanser WC - Nurse 2 - General Ulcer CM Notes Start: 02/20/20 13:18 Freq: Status: Active Protocol: Activity Type Activity Date Activity User E-Sign Co-Sign Detail Recorded Client Recorded Date Recorded By Document 02/20/20 13:52 TONG [id number] 02/20/20 13:55 TONG 02/20/20 13:52 Wound Center Nurse 2 [Procedure/Treatment] #7 L Buttocks -Correct Patient No -Correct Side, Site, Position No -Correct Procedure No -Procedure Performed No -Wound/Ulcer Outcome Not Healed 7. mid lower abd cluster -Time 13:53 -Correct Patient Yes -Correct Side, Site, Position Yes -Correct Procedure Yes -Procedure Performed Yes -Type of Procedure Debridement -Clinical Debridement Subcutaneous -Post Debridement Size (cm) - Length 0.6 -Post Debridement Size (cm) - Width 0.6 -Post Debridement Size (cm) - Depth 0.2 -Total Square Cm 0.36 -Wound/Ulcer Outcome Not Healed -Ulcer Cleansing Rinsed/ Irrigated with Saline -Foul Odor after Cleansing No -Bioengineered Tissue No -Bleeding Controlled with Pressure -Offloading No -Treatment Response Procedure Tolerated Well #2 Sacral -Correct Patient No -Correct Side, Site, Position No -Correct Procedure No -Procedure Performed No -Post Debridement Size (cm) - Length 0 -Post Debridement Size (cm) - Width 0 -Post Debridement Size (cm) - Depth 0 -Total Square Cm 0 -Wound/Ulcer Outcome Healed- Epithelialized [See Physician Procedure note for Specifics] Pain Scale: 0-10 Numeric [Pain] -Is Patient Pain Free? Yes Musculoskeletal: No Tenderness to Palpation of Joints or Extremities Neurological: Neuro grossly intact Psych/Mental Status: Normal Affect, Appropriate Debridement Note Post-Debridement Measurements/Treatment WC - Nurse 2 - General Ulcer CM Notes Start: 02/20/20 13:18 Freq: Status: Active Protocol: Activity Type Activity Date Activity User E-Sign Co-Sign Detail Recorded Client Recorded Date Recorded By Document 02/20/20 13:52 TONG [id number] 02/20/20 13:55 TONG 02/20/20 13:52 Wound Center Nurse 2 #7 L Buttocks -Correct Patient No -Correct Side, Site, Position No -Correct Procedure No -Procedure Performed No -Wound/Ulcer Outcome Not Healed 7. mid lower abd cluster -Time 13:53 -Correct Patient Yes -Correct Side, Site, Position Yes -Correct Procedure Yes -Procedure Performed Yes -Type of Procedure Debridement -Clinical Debridement Subcutaneous -Post Debridement Size (cm) - Length 0.6 -Post Debridement Size (cm) - Width 0.6 -Post Debridement Size (cm) - Depth 0.2 -Total Square Cm 0.36 -Wound/Ulcer Outcome Not Healed -Ulcer Cleansing Rinsed/ Irrigated with Saline -Foul Odor after Cleansing No -Bioengineered Tissue No -Bleeding Controlled with Pressure -Offloading No -Treatment Response Procedure Tolerated Well #2 Sacral -Correct Patient No -Correct Side, Site, Position No -Correct Procedure No -Procedure Performed No -Post Debridement Size (cm) - Length 0 -Post Debridement Size (cm) - Width 0 -Post Debridement Size (cm) - Depth 0 -Total Square Cm 0 -Wound/Ulcer Outcome Healed- Epithelialized Pain Scale: 0-10 Numeric Is Patient Pain Free? Yes Wound debrided: Lower mid abdominal ulcer Type of Debridement: Excisional debridement Anesthesia Used: 5% Lidocaine Gel Depth: Down to and including healthy tissue, in the subcutaneous layer Percentage of wound debrided: 100 Instrument Used: 3mm curette Tissue Removed: Subcutaneous tissue and slough Severity: Fat Layer Exposed Amount of bleeding with debridement: Mild Bleeding Controlled with: Pressure Patient tolerated procedure well Assessment/Plan Active Problems (Last Reviewed 07/29/19 @ 00:[address] 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 Nonhealing hidradenitis ulcer bilateral superior gluteal/perianal area with recent skin grafting and graft compromise. 2. Compromised skin graft. 3. Hidradenitis. 4. Diabetes. 5. Smoker. 6. Hidradenitis bilateral inguinal and medial upper thigh areas, stable. 7. Hidradenitis perineum new area, currently on antibiotics. Plan: There is compromise on the skin graft but it is healed today. Abdominal ulcer in center of abdomen remains opened and he has new area on his perineum that he had to have drained on 02/16/20 at urgent care and they placed him on Levaquin and Flagyl. Wound Care - Laurel the abdominal ulcer. Encouraged warm compresses or sitz baths to the perineum to help with the drainage of that area. Can cover with dry gauze to help absorb the drainage. Will place gauze dressing in skin fold to prevent the skin rubbing. Surgical wound culture was negative and he was treated with Levaquin and Augmentin from a preop culture on 11/28/19 that showed Klebsiella pneumoniae sp pneum, Enterococcus faecalis, MRSE, and Corynebacterium amycolatum and has finished them. Prealbumin from 01/03/20 was 21.9. Encourage nutritional supplementation with protein to help the healing process. HgA1C from 01/03/20 was 8.3. He has concomitant pelvic floor pain that he is scheduled to see a therapist in [place] for evaluation and treatment. He hasn't gone yet and his pelvic pain is better. Encouraged him to stop smoking as this could be deleterious to his wound healing. Follow up one week. [id number]: [id number] Global Visit
[2020-02-20 16:07] VITALS: BMI 33.6
[2020-02-27 09:07] VITALS: BP 138/87; PULSE 78; RESP 18; TEMP 36.1; O2SAT 97; BMI 33.6
--- NOTE | 2020-02-27 21:21 | PCM.WC.PN ---
Type of Wound Date of Service: 02/27/20 Chief Complaint: Nonhealing hidradenitis ulcer bilateral superior gluteal/perianal area with recent skin grafting and graft compromise and intermittent abrasion ulceration abdominal wall and recent hidradenitis flare up in perineal area. History of Wound: Surgery 01/02/20 - Surgical preparation bilateral superior gluteal/perianal area with excisional debridement nonhealing hidradenitis ulcer and STSG reconstruction from left posterior flank (4.5 cm2) and placement of AmnioFill placental connective tissue powder (250 mg). There was compromise on the skin graft that initially healed but developed a small re-ulceration. He also sustained recurrent abdominal wall abrasion ulceration mostl likely from friction from skin rubbing together. He also developed a new area of infection on his perineum. It was drained on 02/16/20 at urgent care and they placed him on Levaquin and Flagyl. Wound Care - Laurel and Sitz baths. Can cover with dry gauze to help absorb the drainage. Operative culture from 01/02/20 was negative for bacterial growth. He was treated perioperatively with Levaquin and Augmentin from a preop wound culture on 11/28/2019 that showed Klebsiella pneumoniae sp pneum, Enterococcus faecalis, MRSE, and Corynebacterium amycolatum and has finished them. Prealbumin from 01/03/20 was 21.9. Encourage nutritional supplementation with protein to help the healing process. HgbA1c from 01/03/20 was 8.3. He has had intermittent flare ups in his bilateral inguinal and upper medial thigh areas that responded to Doxycycline. He has complained about pelvic floor pain and was referred for pelvic floor therapy in [place]. He hasn't gone yet due to various issues including Covid19, but he states his pelvic floor pain is better. Today he denies fever. His appetite is better. Progress of Wound: Improved. - Physical Exam Vital Signs Temp Pulse Resp BP Pulse Ox 97.0 F L 78 18 138/87 H 97 02/27/20 09:07 02/27/20 09:07 02/27/20 09:07 02/27/20 09:07 02/27/20 09:07 HEENT: Sluggish Pupils Wound Measurements and Assessment WC - Nurse 1 - General Ulcer Measurement Start: 02/20/20 13:18 Freq: Status: Active Protocol: Activity Type Activity Date Activity User E-Sign Co-Sign Detail Recorded Client Recorded Date Recorded By Document 02/27/20 09:07 HI [id number] 02/27/20 09:18 HI 02/27/20 09:07 Wound Center Nurse 1 [Ulcer Assessment] #8 Perineum -Current Size (cm) - Length 1.5 -Current Size (cm) - Width 0.5 -Current Size (cm) - Depth 0.1 -Total Square Cm 0.75 -Exudate Amt Small -Exudate Type Serosanguineous -Wound Margin Flat & Intact -Granulation Amt Large (67-100%) -Granulation Quality Pale,[place] -Slough/Fibrin No -Texture (Kassandra-wound Skin Appearance) Assessed -Moisture (Kassandra-wound Skin Appearance Assessed ) -Color (Kassandra-wound Skin Appearance) Assessed -Temperature (Kassandra-wound Skin No Abnormality Appearance) (Pt Warm) -Tenderness on Palpation (Kassandra-wound No Skin Appearance) -Ulcer Cleansing Rinsed/ Irrigated with Saline -Foul Odor after Cleansing No -Anesthetic Used 4% Lidocaine Solution 7. Abdominal wall -Current Size (cm) - Length 0.5 -Current Size (cm) - Width 0.5 -Current Size (cm) - Depth 0.1 -Total Square Cm 0.25 -Exudate Amt None Present -Wound Margin Flat & Intact -Granulation Amt Large (67-100%) -Granulation Quality Pale,[place] -Slough/Fibrin No -Texture (Kassandra-wound Skin Appearance) Assessed -Moisture (Kassandra-wound Skin Appearance Assessed ) -Color (Kassandra-wound Skin Appearance) Assessed -Temperature (Kassandra-wound Skin No Abnormality Appearance) (Pt Warm) -Tenderness on Palpation (Kassandra-wound No Skin Appearance) -Ulcer Cleansing Rinsed/ Irrigated with Saline -Anesthetic Used 4% Lidocaine Solution WC - Nurse 2 - General Ulcer CM Notes Start: 02/20/20 13:18 Freq: Status: Active Protocol: Activity Type Activity Date Activity User E-Sign Co-Sign Detail Recorded Client Recorded Date Recorded By Document 02/27/20 09:39 [id number] 02/27/20 09:48 02/27/20 09:39 Wound Center Nurse 2 [Procedure/Treatment] #8 Perineum -Time 09:43 -Correct Patient Yes -Correct Side, Site, Position Yes -Correct Procedure Yes -Procedure Performed Yes -Type of Procedure Debridement -Clinical Debridement Subcutaneous -Post Debridement Size (cm) - Length 1.5 -Post Debridement Size (cm) - Width 0.5 -Post Debridement Size (cm) - Depth 0.2 -Total Square Cm 0.75 -Wound/Ulcer Outcome Not Healed -Ulcer Cleansing Rinsed/ Irrigated with Saline -Foul Odor after Cleansing No -Bioengineered Tissue No -Bleeding Controlled with Pressure -Offloading No -Treatment Response Procedure Tolerated Well 7. Abdominal wall -Time 09:44 -Correct Patient Yes -Correct Side, Site, Position Yes -Correct Procedure Yes -Procedure Performed Yes -Type of Procedure Debridement -Clinical Debridement Subcutaneous -Post Debridement Size (cm) - Length 0.6 -Post Debridement Size (cm) - Width 0.6 -Post Debridement Size (cm) - Depth 0.1 -Total Square Cm 0.36 -Wound/Ulcer Outcome Not Healed -Ulcer Cleansing Rinsed/ Irrigated with Saline -Foul Odor after Cleansing No -Bioengineered Tissue No -Bleeding Controlled with Pressure -Offloading No -Treatment Response Procedure Tolerated Well #2 Perianal area -Time 09:46 -Correct Patient Yes -Correct Side, Site, Position Yes -Correct Procedure Yes -Procedure Performed Yes -Type of Procedure Debridement -Clinical Debridement Subcutaneous -Post Debridement Size (cm) - Length 0.3 -Post Debridement Size (cm) - Width 0.2 -Post Debridement Size (cm) - Depth 0.1 -Total Square Cm 0.06 -Wound/Ulcer Outcome Not Healed -Ulcer Cleansing Rinsed/ Irrigated with Saline -Foul Odor after Cleansing No -Bioengineered Tissue No -Bleeding Controlled with Pressure -Offloading No -Treatment Response Procedure Tolerated Well [See Physician Procedure note for Specifics] Pain Scale: 0-10 Numeric [Pain] -Is Patient Pain Free? Yes Debridement Note Post-Debridement Measurements/Treatment WC - Nurse 2 - General Ulcer CM Notes Start: 02/20/20 13:18 Freq: Status: Active Protocol: Activity Type Activity Date Activity User E-Sign Co-Sign Detail Recorded Client Recorded Date Recorded By Document 02/20/20 13:52 TONG [id number] 02/20/20 13:55 JF Document 02/27/20 09:39 TONG [id number] 02/27/20 09:48 02/20/20 02/27/20 13:52 09:39 Wound Center Nurse 2 #8 Perineum -Time 09:43 -Correct Patient No Yes -Correct Side, Site, Position No Yes -Correct Procedure No Yes -Procedure Performed No Yes -Type of Procedure Debridement -Clinical Debridement Subcutaneous -Post Debridement Size (cm) - Length 1.5 -Post Debridement Size (cm) - Width 0.5 -Post Debridement Size (cm) - Depth 0.2 -Total Square Cm 0.75 -Wound/Ulcer Outcome Not Healed Not Healed -Ulcer Cleansing Rinsed/ Irrigated with Saline -Foul Odor after Cleansing No -Bioengineered Tissue No -Bleeding Controlled with Pressure -Offloading No -Treatment Response Procedure Tolerated Well #7 Abdominal wall -Time 13:53 09:44 -Correct Patient Yes Yes -Correct Side, Site, Position Yes Yes -Correct Procedure Yes Yes -Procedure Performed Yes Yes -Type of Procedure Debridement Debridement -Clinical Debridement Subcutaneous Subcutaneous -Post Debridement Size (cm) - Length 0.6 0.6 -Post Debridement Size (cm) - Width 0.6 0.6 -Post Debridement Size (cm) - Depth 0.2 0.1 -Total Square Cm 0.36 0.36 -Wound/Ulcer Outcome Not Healed Not Healed -Ulcer Cleansing Rinsed/ Rinsed/ Irrigated with Irrigated with Saline Saline -Foul Odor after Cleansing No No -Bioengineered Tissue No No -Bleeding Controlled with Pressure Pressure -Offloading No No -Treatment Response Procedure Procedure Tolerated Well Tolerated Well #2 Perianal area -Time 09:46 -Correct Patient No Yes -Correct Side, Site, Position No Yes -Correct Procedure No Yes -Procedure Performed No Yes -Type of Procedure Debridement -Clinical Debridement Subcutaneous -Post Debridement Size (cm) - Length 0 0.3 -Post Debridement Size (cm) - Width 0 0.2 -Post Debridement Size (cm) - Depth 0 0.1 -Total Square Cm 0 0.06 -Wound/Ulcer Outcome Healed- Not Healed Epithelialized -Ulcer Cleansing Rinsed/ Irrigated with Saline -Foul Odor after Cleansing No -Bioengineered Tissue No -Bleeding Controlled with Pressure -Offloading No -Treatment Response Procedure Tolerated Well Pain Scale: 0-10 Numeric Is Patient Pain Free? Yes Yes Wound debrided: #2 Perianal area. Laterality: Not Applicable Wound Grade/Stage: 2. Type of Debridement: Excisional debridement Anesthesia Used: 4% Lidocaine Solution Depth: Down to and including healthy tissue, in the subcutaneous layer Percentage of wound debrided: 100 Instrument Used: 3mm curette Tissue Removed: subcutaneous tissue. Severity: Fat Layer Exposed Amount of bleeding with debridement: Mild Bleeding Controlled with: Pressure Patient tolerated procedure well - Additional Wound Wound debrided: #7 Abdominal wall. Laterality: Not Applicable Wound Grade/Stage: 2. Type of Debridement: Excisional debridement Anesthesia Used: 4% Lidocaine Solution Depth: Down to and including healthy tissue, in the subcutaneous layer Percentage of wound debrided: 100 Instrument Used: 3mm curette Tissue Removed: subcutaneous tissue. Severity: Fat Layer Exposed Amount of bleeding with debridement: Mild Bleeding Controlled with: Pressure Patient tolerated procedure: Patient tolerated procedure well - Additional Wound Wound debrided: #8 Perineum. Laterality: Not Applicable Wound Grade/Stage: 2. Type of Debridement: Excisional debridement Anesthesia Used: 4% Lidocaine Solution Depth: Down to and including healthy tissue, in the subcutaneous layer Percentage of wound debrided: 100 Instrument Used: 3mm curette Tissue Removed: subcutaneous tissue. Severity: Fat Layer Exposed Amount of bleeding with debridement: Mild Bleeding Controlled with: Pressure Patient tolerated procedure: Patient tolerated procedure well Assessment/Plan Active Problems (Last Reviewed 07/29/19 @ 00:[address] 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 Nonhealing hidradenitis ulcer bilateral superior gluteal/perianal area with recent skin grafting and graft compromise. 2. Compromised skin graft. 3. Hidradenitis. 4. Diabetes. 5. Smoker. 6. Hidradenitis bilateral inguinal and medial upper thigh areas, stable. 7. Hidradenitis perineum, stable. Plan: The perianal skin graft had healed but has developed an abrasion re-ulceration probably from friction from skin rubbing together. Also the Sitz baths may have contributed as well. The Sitz baths were treating the new onset hidradenitis infection in the perineal area. It is stable today after it had drained. He was started on Levaquin and Flagyl and has finished them. Abdominal wall re-ulceration has occurred as well probably from friction from skin rubbing together. He also has hair in the area and could benefit from shaving the area until the scar has strengthened. He also may benefit from excising the ulceration and some of the surrounding skin with complex secondary wound closure that will hopefully minimize further problems since the skin overhang would be minimized as well. Wound Care - Laurel to the abdominal wall ulcer and perineal skin graft ulcer. Encouraged warm compresses or sitz baths to the perineum to help with the drainage of that area. Can cover with dry gauze to help absorb the drainage. Laurel should help to absorb drainage over the perineal skin graft and helpt to minimize skin rubbing together in both the perianal graft area and the abdominal wall area. Surgical wound culture was negative and he was treated with Levaquin and Augmentin from a preop culture on 11/28/19 that showed Klebsiella pneumoniae sp pneum, Enterococcus faecalis, MRSE, and Corynebacterium amycolatum and has finished them. Prealbumin from 01/03/20 was 21.9. Encourage nutritional supplementation with protein to help the healing process. HgA1C from 01/03/20 was 8.3. He has concomitant pelvic floor pain that he is scheduled to see a therapist in [place] for evaluation and treatment. He hasn't gone yet and his pelvic pain is better. Encouraged him to stop smoking as this could be deleterious to his wound healing. Follow up one week. Discussed with him possible further surgery in the abdominal wall. He is interested but wants to wait a little while because of the Coronavirus. When he decides on the surgery, will repeat the HgbA1c. It needs to be less than 8. [id number]: [id number] Global Visit - ICD-10 - Z48.89, L98.419, L73.2, T86.828, E11.9, F17.200
[2020-03-05 13:18] VITALS: BP 128/88; PULSE 89; RESP 20; TEMP 36.7; BMI 33.6
--- NOTE | 2020-03-05 15:47 | PN.PCM_ITS ---
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 Code(s): T86.821 - 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 Code(s): T86.820 - Skin graft (allograft) rejection (7) Other complications of skin graft (allograft) (autograft) Status: Chronic Code(s): T86.828 - Other complications of skin graft (allograft) (autograft) (8) Diabetes Status: Chronic Code(s): E11.9 - Type 2 diabetes mellitus without complications (9) Smoker Status: Chronic Code(s): F17.200 - Nicotine dependence, unspecified, uncomplicated Type of Wound Date of Service: 03/05/20 Chief Complaint: Nonhealing hidradenitis ulcer bilateral superior gluteal/perianal area with recent skin grafting and graft compromise and intermittent abrasion ulceration abdominal wall and recent hidradenitis flare up in perineal area. History of Wound: Surgery 01/02/20 - Surgical preparation bilateral superior gluteal/perianal area with excisional debridement nonhealing hidradenitis ulcer and STSG reconstruction from left posterior flank (4.5 cm2) and placement of AmnioFill placental connective tissue powder (250 mg). There was compromise on the skin graft that initially healed but developed a small re-ulceration. He also sustained recurrent abdominal wall abrasion ulceration mostl likely from friction from skin rubbing together, which is healed today. He also developed a new area of infection on his perineum. It was drained on 02/16/20 at urgent care and they placed him on Levaquin and Flagyl. Wound Care - Sacral ulcer moistened [place]. The perineal area is now soft and no longer draining, can stop the Sitz baths. Can cover with dry gauze to help absorb the drainage. Operative culture from 01/02/20 was negative for bacterial growth. He was treated perioperatively with Levaquin and Augmentin from a preop wound culture on 11/28/2019 that showed Klebsiella pneumoniae sp pneum, Enterococcus faecalis, MRSE, and Corynebacterium amycolatum and has finished them. Prealbumin from 01/03/20 was 21.9. Encourage nutritional supplementation with protein to help the healing process. HgbA1c from 01/03/20 was 8.3. He has had intermittent flare ups in his bilateral inguinal and upper medial thigh areas that responded to Doxycycline. He has complained about pelvic floor pain and was referred for pelvic floor therapy in [place]. He hasn't gone yet due to various issues including Covid19, but he states his pelvic floor pain is better. Today he denies fever. His appetite is better. Progress of Wound: Abdominal ulcer is healed. Sacral ulcer is stable. - Physical Exam Vital Signs Temp Pulse Resp BP Pulse Ox 98.1 F 89 20 H 128/88 H 97 03/05/20 13:18 03/05/20 13:18 03/05/20 13:18 03/05/20 13:18 02/27/20 09:07 General: Alert, Oriented x3, Cooperative HEENT: Atraumatic Oral: Moist Mucosa Lungs: Normal air movement Cardiovascular: Regular rate Extremities: No edema, Capillary Refill Less than 3 Seconds Skin: Ulcer/ Wound - Lower abdominal ulcer is healed today. Sacral ulcer is stable. Wound Measurements and Assessment WC - Nurse 1 - General Ulcer Measurement Start: 02/20/20 13:18 Freq: Status: Active Protocol: Activity Type Activity Date Activity User E-Sign Co-Sign Detail Recorded Client Recorded Date Recorded By Document 03/05/20 13:18 DL [id number] 03/05/20 13:28 DL 03/05/20 13:18 Wound Center Nurse 1 [Ulcer Assessment] #8 L Buttocks -Current Size (cm) - Length 0.1 -Current Size (cm) - Width 0.1 -Current Size (cm) - Depth 0.1 -Total Square Cm 0.01 -Photo Taken No -Exudate Amt None Present -Wound Margin Flat & Intact -Granulation Amt Small (1-33%) -Granulation Quality [place] -Necrosis Amt None Present (0 %) -Structure Exposed N/A -Texture (Kassandra-wound Skin Appearance) Scarring -Moisture (Kassandra-wound Skin Appearance No Abnormality ) -Color (Kassandra-wound Skin Appearance) No Abnormality -Temperature (Kassandra-wound Skin No Abnormality Appearance) (Pt Warm) -Tenderness on Palpation (Kassandra-wound No Skin Appearance) -Anesthetic Used 4% Lidocaine Solution 7. mid lower abd cluster -Current Size (cm) - Length 0 -Current Size (cm) - Width 0 -Current Size (cm) - Depth 0 -Total Square Cm 0 -Photo Taken Yes -Exudate Amt None Present -Wound Margin Flat & Intact -Granulation Amt Large (67-100%) -Granulation Quality [place] -Necrosis Amt None Present (0 %) -Structure Exposed N/A -Texture (Kassandra-wound Skin Appearance) Scarring -Moisture (Kassandra-wound Skin Appearance No Abnormality ) -Color (Kassandra-wound Skin Appearance) No Abnormality -Temperature (Kassandra-wound Skin No Abnormality Appearance) (Pt Warm) -Tenderness on Palpation (Kassandra-wound No Skin Appearance) -Ulcer Cleansing Rinsed/ Irrigated with Saline -Foul Odor after Cleansing No #2 Sacral -Current Size (cm) - Length 0.2 -Current Size (cm) - Width 0.1 -Current Size (cm) - Depth 0.1 -Total Square Cm 0.02 -Photo Taken No -Exudate Amt None Present -Wound Margin Flat & Intact -Granulation Amt Small (1-33%) -Granulation Quality [place] -Necrosis Amt None Present (0 %) -Structure Exposed N/A -Texture (Kassandra-wound Skin Appearance) Scarring -Moisture (Kassandra-wound Skin Appearance No Abnormality ) -Color (Kassandra-wound Skin Appearance) No Abnormality -Temperature (Kassandra-wound Skin No Abnormality Appearance) (Pt Warm) -Tenderness on Palpation (Kassandra-wound No Skin Appearance) -Ulcer Cleansing Wound Cleanser -Foul Odor after Cleansing No -Anesthetic Used 4% Lidocaine Solution WC - Nurse 2 - General Ulcer CM Notes Start: 02/20/20 13:18 Freq: Status: Active Protocol: Activity Type Activity Date Activity User E-Sign Co-Sign Detail Recorded Client Recorded Date Recorded By Document 03/05/20 13:40 TONG [id number] 03/05/20 13:45 03/05/20 13:40 Wound Center Nurse 2 [Procedure/Treatment] #8 L Buttocks -Correct Patient No -Correct Side, Site, Position No -Correct Procedure No -Procedure Performed No -Wound/Ulcer Outcome Not Healed 7. mid lower abd cluster -Correct Patient No -Correct Side, Site, Position No -Correct Procedure No -Procedure Performed No -Post Debridement Size (cm) - Length 0 -Post Debridement Size (cm) - Width 0 -Post Debridement Size (cm) - Depth 0 -Total Square Cm 0 -Wound/Ulcer Outcome Healed- Epithelialized #2 Sacral -Time 13:42 -Correct Patient Yes -Correct Side, Site, Position Yes -Correct Procedure Yes -Procedure Performed Yes -Type of Procedure Debridement -Clinical Debridement Subcutaneous -Post Debridement Size (cm) - Length 0.3 -Post Debridement Size (cm) - Width 0.5 -Post Debridement Size (cm) - Depth 0.2 -Total Square Cm 0.15 -Wound/Ulcer Outcome Not Healed -Ulcer Cleansing Rinsed/ Irrigated with Saline -Foul Odor after Cleansing No -Bioengineered Tissue No -Bleeding Controlled with Pressure -Offloading No -Treatment Response Procedure Tolerated Well [See Physician Procedure note for Specifics] Pain Scale: 0-10 Numeric [Pain] -Is Patient Pain Free? Yes Musculoskeletal: No Tenderness to Palpation of Joints or Extremities Neurological: Deep Tendon Reflexes 2+/4 and Symmetrical Psych/Mental Status: Normal Affect, Appropriate Debridement Note Post-Debridement Measurements/Treatment WC - Nurse 2 - General Ulcer CM Notes Start: 02/20/20 13:18 Freq: Status: Active Protocol: Activity Type Activity Date Activity User E-Sign Co-Sign Detail Recorded Client Recorded Date Recorded By Document 02/20/20 13:52 [id number] 02/20/20 13:55 Document 02/27/20 09:39 [id number] 02/27/20 09:48 Document 03/05/20 13:40 [id number] 03/05/20 13:45 02/20/20 02/27/20 03/05/20 13:52 09:39 13:40 Wound Center Nurse 2 #8 L Buttocks -Time 09:43 -Correct Patient No Yes No -Correct Side, Site, Position No Yes No -Correct Procedure No Yes No -Procedure Performed No Yes No -Type of Procedure Debridement -Clinical Debridement Subcutaneous -Post Debridement Size (cm) - Length 1.5 -Post Debridement Size (cm) - Width 0.5 -Post Debridement Size (cm) - Depth 0.2 -Total Square Cm 0.75 -Wound/Ulcer Outcome Not Healed Not Healed Not Healed -Ulcer Cleansing Rinsed/ Irrigated with Saline -Foul Odor after Cleansing No -Bioengineered Tissue No -Bleeding Controlled with Pressure -Offloading No -Treatment Response Procedure Tolerated Well 7. mid lower abd cluster -Time 13:53 09:44 -Correct Patient Yes Yes No -Correct Side, Site, Position Yes Yes No -Correct Procedure Yes Yes No -Procedure Performed Yes Yes No -Type of Procedure Debridement Debridement -Clinical Debridement Subcutaneous Subcutaneous -Post Debridement Size (cm) - Length 0.6 0.6 0 -Post Debridement Size (cm) - Width 0.6 0.6 0 -Post Debridement Size (cm) - Depth 0.2 0.1 0 -Total Square Cm 0.36 0.36 0 -Wound/Ulcer Outcome Not Healed Not Healed Healed- Epithelialized -Ulcer Cleansing Rinsed/ Rinsed/ Irrigated with Irrigated with Saline Saline -Foul Odor after Cleansing No No -Bioengineered Tissue No No -Bleeding Controlled with Pressure Pressure -Offloading No No -Treatment Response Procedure Procedure Tolerated Well Tolerated Well #2 Sacral -Time 09:46 13:42 -Correct Patient No Yes Yes -Correct Side, Site, Position No Yes Yes -Correct Procedure No Yes Yes -Procedure Performed No Yes Yes -Type of Procedure Debridement Debridement -Clinical Debridement Subcutaneous Subcutaneous -Post Debridement Size (cm) - Length 0 0.3 0.3 -Post Debridement Size (cm) - Width 0 0.2 0.5 -Post Debridement Size (cm) - Depth 0 0.1 0.2 -Total Square Cm 0 0.06 0.15 -Wound/Ulcer Outcome Healed- Not Healed Not Healed Epithelialized -Ulcer Cleansing Rinsed/ Rinsed/ Irrigated with Irrigated with Saline Saline -Foul Odor after Cleansing No No -Bioengineered Tissue No No -Bleeding Controlled with Pressure Pressure -Offloading No No -Treatment Response Procedure Procedure Tolerated Well Tolerated Well Pain Scale: 0-10 Numeric Is Patient Pain Free? Yes Yes Yes Wound debrided: Sacral ulcer Type of Debridement: Excisional debridement Anesthesia Used: 4% Lidocaine Solution, 5% Lidocaine Gel Depth: Down to and including healthy tissue, in the subcutaneous layer Percentage of wound debrided: 100 Instrument Used: 3mm curette Tissue Removed: Subcutaneous tissue and slough Severity: Limited To Skin Breakdown Amount of bleeding with debridement: None Bleeding Controlled with: Pressure Patient tolerated procedure well Assessment/Plan Assessment: 1. Nonhealing hidradenitis ulcer bilateral superior gluteal/perianal area with recent skin grafting and graft compromise. 2. Compromised skin graft. 3. Hidradenitis. 4. Diabetes. 5. Smoker. 6. Hidradenitis bilateral inguinal and medial upper thigh areas, stable. 7. Hidradenitis perineum, stable. Plan: The perianal skin graft had healed but has developed an abrasion re- ulceration probably from friction from skin rubbing together. Also the Sitz baths may have contributed as well. The Sitz baths were treating the new onset hidradenitis infection in the perineal area. It is stable today after it had drained. He was started on Levaquin and Flagyl and has finished them. Abdominal wall re-ulceration is healed today. Instructed him to keep this area dry. He has some gauze to help absorb the moisture in this area. Wound Care - Laurel to the perineal skin graft ulcer. The perineum is no longer firm or draining. Will stop the sitz baths. Surgical wound culture was negative and he was treated with Levaquin and Augmentin from a preop culture on 11/28/19 that showed Klebsiella pneumoniae sp pneum, Enterococcus faecalis, MRSE, and Corynebacterium amycolatum and has finished them. Prealbumin from 01/03/20 was 21.9. Encourage nutritional supplementation with protein to help the healing process. HgA1C from 01/03/20 was 8.3. He has concomitant pelvic floor pain that he is scheduled to see a therapist in [place] for evaluation and treatment. He hasn't gone yet and his pelvic pain is better. Encouraged him to stop smoking as this could be deleterious to his wound healing. Follow up two weeks. Discussed with him possible further surgery in the abdominal wall. He is interested but wants to wait a little while because of the Coronavirus. When he decides on the surgery, will repeat the HgbA1c. It needs to be less than 8. [id number]
== END 2020-03-08 23:59 ==
LOC: WC 13:00
PROVIDERS: Family Provider Internal Medicine; PCP Internal Medicine; Referring Provider Nurse Practitioner Family; Visit Provider Nurse Practitioner Family
DX: L73.2 Hidradenitis suppurativa (principal); L98.492 Non-pressure chronic ulcer of skin of other sites with fat layer exposed; L02.215 Cutaneous abscess of perineum; E11.9 Type 2 diabetes mellitus without complications; T86.821 Skin graft (allograft) (autograft) failure; Y83.8 Other surgical procedures as the cause of abnormal reaction of the patient, or of later complication, without mention of misadventure at the time of the procedure; F17.200 Nicotine dependence, unspecified, uncomplicated
CPT/HCPCS: 11042

== ENCOUNTER 2020-03-19 09:47 | Outpatient (RCR) | payer OTHER, SELFPAY ==
[2020-03-09 00:10] VITALS: BP 128/88; PULSE 89; RESP 20; TEMP 36.7; O2SAT 97
[2020-03-19 13:07] VITALS: BP 160/97; PULSE 86; RESP 20; TEMP 36.2; BMI 33.6
--- NOTE | 2020-03-19 14:53 | PN.PCM_ITS ---
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 Code(s): T86.821 - Skin graft (allograft) (autograft) failure (3) Skin allograft rejection Status: Chronic Code(s): T86.820 - Skin graft (allograft) rejection (4) Other complications of skin graft (allograft) (autograft) Status: Chronic Code(s): T86.828 - Other complications of skin graft (allograft) (autograft) (5) Perineal abscess Status: Chronic Code(s): L02.215 - Cutaneous abscess of perineum (6) Diabetes Status: Chronic Code(s): E11.9 - Type 2 diabetes mellitus without complications (7) Smoker Status: Chronic Code(s): F17.200 - Nicotine dependence, unspecified, uncomplicated (8) Hidradenitis suppurativa Status: Chronic Code(s): L73.2 - Hidradenitis suppurativa Comment: abdominal wall skin crease bilateral inguinal/medial thighs Type of Wound Date of Service: 03/19/20 Chief Complaint: Nonhealing hidradenitis ulcer bilateral superior gluteal/perianal area with recent skin grafting and graft compromise and intermittent abrasion ulceration abdominal wall and recent hidradenitis flare up in perineal area. History of Wound: Surgery 01/02/20 - Surgical preparation bilateral superior gluteal/perianal area with excisional debridement nonhealing hidradenitis ulcer and STSG reconstruction from left posterior flank (4.5 cm2) and placement of AmnioFill placental connective tissue powder (250 mg). There was compromise on the skin graft that initially healed but developed a small re-ulceration. He also sustained recurrent abdominal wall abrasion ulceration mostl likely from friction from skin rubbing together, which is healed today. He also developed a new area of infection on his perineum. It was drained on 02/16/20 at urgent care and they placed him on Levaquin and Flagyl. Wound Care - Sacral ulcer max agen hydrogel. The perineal area is now soft and no longer draining, can stop the Sitz baths. Can cover with dry gauze to help absorb the drainage. Operative culture from 01/02/20 was negative for bacterial growth. He was treated perioperatively with Levaquin and Augmentin from a preop wound culture on 11/28/2019 that showed Klebsiella pneumoniae sp pneum, Enterococcus faecalis, MRSE, and Corynebacterium amycolatum and has finished them. Prealbumin from 01/03/20 was 21.9. Encourage nutritional supplementation with protein to help the healing process. HgbA1c from 01/03/20 was 8.3. He has had intermittent flare ups in his bilateral inguinal and upper medial thigh areas that responded to Doxycycline. He has complained about pelvic floor pain and was referred for pelvic floor therapy in [place]. He hasn't gone yet due to various issues including Covid19, but he states his pelvic floor pain is better. Today he denies fever. His appetite is better. Progress of Wound: Improved. - Physical Exam Vital Signs Temp Pulse Resp BP Pulse Ox 97.2 F L 86 20 H 160/97 H 97 03/19/20 13:07 03/19/20 13:07 03/19/20 13:07 03/19/20 13:07 03/09/20 00:10 General: Alert, Oriented x3, Cooperative HEENT: Atraumatic Oral: Moist Mucosa Neck: Supple Lungs: Normal air movement Cardiovascular: Regular rate Abdomen: Soft Extremities: No edema, Capillary Refill Less than 3 Seconds Skin: Ulcer/ Wound - Abdominal ulcer remains healed. Sacrall ulcer is stable. Perineum is soft, no drainage. Wound Measurements and Assessment WC - Nurse 1 - General Ulcer Measurement Start: 03/19/20 13:06 Freq: Status: Active Protocol: Activity Type Activity Date Activity User E-Sign Co-Sign Detail Recorded Client Recorded Date Recorded By Document 03/19/20 13:07 DL [id number] 03/19/20 13:14 DL 03/19/20 13:07 Wound Center Nurse 1 [Ulcer Assessment] #8 perineum area -Current Size (cm) - Length 0.4 -Current Size (cm) - Width 0.2 -Current Size (cm) - Depth 0.1 -Total Square Cm 0.08 -Photo Taken No -Exudate Amt Small -Exudate Type Serosanguineous -Wound Margin Distinct, Outline Attached -Granulation Amt Small (1-33%) -Granulation Quality [place] -Necrosis Amt Small (1-33%) -Necrotic Tissue Type Adherent Slough -Structure Exposed N/A -Texture (Kassandra-wound Skin Appearance) Scarring -Moisture (Kassandra-wound Skin Appearance No Abnormality ) -Color (Kassandra-wound Skin Appearance) No Abnormality -Temperature (Kassandra-wound Skin No Abnormality Appearance) (Pt Warm) -Tenderness on Palpation (Kassandra-wound No Skin Appearance) -Ulcer Cleansing Rinsed/ Irrigated with Saline -Foul Odor after Cleansing No -Anesthetic Used 4% Lidocaine Solution #2 Sacral -Current Size (cm) - Length 1.4 -Current Size (cm) - Width 0.3 -Current Size (cm) - Depth 0.2 -Total Square Cm 0.42 -Photo Taken No -Exudate Amt Small -Exudate Type Serosanguineous -Wound Margin Distinct, Outline Attached -Granulation Amt Small (1-33%) -Granulation Quality [place],Red -Necrosis Amt Small (1-33%) -Necrotic Tissue Type Adherent Slough -Structure Exposed N/A -Texture (Kassandra-wound Skin Appearance) Scarring -Moisture (Kassandra-wound Skin Appearance No Abnormality ) -Color (Kassandra-wound Skin Appearance) No Abnormality -Temperature (Kassandra-wound Skin No Abnormality Appearance) (Pt Warm) -Tenderness on Palpation (Kassandra-wound No Skin Appearance) -Ulcer Cleansing Rinsed/ Irrigated with Saline -Foul Odor after Cleansing No -Anesthetic Used 4% Lidocaine Solution WC - Nurse 2 - General Ulcer CM Notes Start: 03/19/20 13:06 Freq: Status: Active Protocol: Activity Type Activity Date Activity User E-Sign Co-Sign Detail Recorded Client Recorded Date Recorded By Document 03/19/20 13:23 TONG [id number] 03/19/20 13:26 TONG 03/19/20 13:23 Wound Center Nurse 2 [Procedure/Treatment] #8 perineum area -Correct Patient No -Correct Side, Site, Position No -Correct Procedure No -Procedure Performed No -Post Debridement Size (cm) - Length 0 -Post Debridement Size (cm) - Width 0 -Post Debridement Size (cm) - Depth 0 -Total Square Cm 0 -Wound/Ulcer Outcome Healed- Epithelialized #2 Sacral -Time 13:24 -Correct Patient Yes -Correct Side, Site, Position Yes -Correct Procedure Yes -Procedure Performed Yes -Type of Procedure Debridement -Clinical Debridement Subcutaneous -Post Debridement Size (cm) - Length 1.2 -Post Debridement Size (cm) - Width 0.5 -Post Debridement Size (cm) - Depth 0.2 -Total Square Cm 0.60 -Wound/Ulcer Outcome Not Healed -Ulcer Cleansing Rinsed/ Irrigated with Saline -Foul Odor after Cleansing No -Bioengineered Tissue No -Bleeding Controlled with Pressure -Offloading No -Treatment Response Procedure Tolerated Well [See Physician Procedure note for Specifics] Pain Scale: 0-10 Numeric [Pain] -Is Patient Pain Free? Yes Musculoskeletal: No Tenderness to Palpation of Joints or Extremities Neurological: Neuro grossly intact Psych/Mental Status: Normal Affect, Appropriate Debridement Note Post-Debridement Measurements/Treatment WC - Nurse 2 - General Ulcer CM Notes Start: 03/19/20 13:06 Freq: Status: Active Protocol: Activity Type Activity Date Activity User E-Sign Co-Sign Detail Recorded Client Recorded Date Recorded By Document 03/19/20 13:23 TONG [id number] 03/19/20 13:26 TONG 03/19/20 13:23 Wound Center Nurse 2 #8 perineum area -Correct Patient No -Correct Side, Site, Position No -Correct Procedure No -Procedure Performed No -Post Debridement Size (cm) - Length 0 -Post Debridement Size (cm) - Width 0 -Post Debridement Size (cm) - Depth 0 -Total Square Cm 0 -Wound/Ulcer Outcome Healed- Epithelialized #2 Sacral -Time 13:24 -Correct Patient Yes -Correct Side, Site, Position Yes -Correct Procedure Yes -Procedure Performed Yes -Type of Procedure Debridement -Clinical Debridement Subcutaneous -Post Debridement Size (cm) - Length 1.2 -Post Debridement Size (cm) - Width 0.5 -Post Debridement Size (cm) - Depth 0.2 -Total Square Cm 0.60 -Wound/Ulcer Outcome Not Healed -Ulcer Cleansing Rinsed/ Irrigated with Saline -Foul Odor after Cleansing No -Bioengineered Tissue No -Bleeding Controlled with Pressure -Offloading No -Treatment Response Procedure Tolerated Well Pain Scale: 0-10 Numeric Is Patient Pain Free? Yes Wound debrided: sacral ulcer Type of Debridement: Excisional debridement Anesthesia Used: 5% Lidocaine Gel Depth: Down to and including healthy tissue, in the subcutaneous layer Percentage of wound debrided: 100 Instrument Used: 3mm curette Tissue Removed: Subcutaneous tissue and slough Severity: Limited To Skin Breakdown Amount of bleeding with debridement: Mild Bleeding Controlled with: Pressure Patient tolerated procedure well Assessment/Plan Assessment: 1. Nonhealing hidradenitis ulcer bilateral superior gluteal/perianal area with recent skin grafting and graft compromise. 2. Compromised skin graft. 3. Hidradenitis. 4. Diabetes. 5. Smoker. 6. Hidradenitis bilateral inguinal and medial upper thigh areas, stable. 7. Hidradenitis perineum, stable. Plan: The perianal skin graft had healed but has developed an abrasion re- ulceration probably from friction from skin rubbing together. Also the Sitz baths may have contributed as well. The Sitz baths were treating the new onset hidradenitis infection in the perineal area. It is stable today after it had drained, he has stopped the sitz baths.. He was started on Levaquin and Flagyl and has finished them. Abdominal wall re-ulceration remains healed today. Instructed him to keep this area dry. He has some gauze to help absorb the moisture in this area. Wound Care - Collagen hydrogel to the sacral skin graft ulcer. The perineum is no longer firm or draining. Will stop the sitz baths. Surgical wound culture was negative and he was treated with Levaquin and Augmentin from a preop culture on 11/28/19 that showed Klebsiella pneumoniae sp pneum, Enterococcus faecalis, MRSE, and Corynebacterium amycolatum and has finished them. Prealbumin from 01/03/20 was 21.9. Encourage nutritional supplementation with protein to help the healing process. HgA1C from 01/03/20 was 8.3. He has concomitant pelvic floor pain that he is scheduled to see a therapist in [place] for evaluation and treatment. He hasn't gone yet and his pelvic pain is better. Encouraged him to stop smoking as this could be deleterious to his wound healing. Follow up two weeks. Discussed with him possible further surgery in the abdominal wall. He is interested but wants to wait a little while because of the Coronavirus. When he decides on the surgery, will repeat the HgbA1c. It needs to be less than 8. [id number]: [id number] Global Visit
== END 2020-04-08 23:59 ==
LOC: WC 09:47
PROVIDERS: Family Provider Internal Medicine; PCP Internal Medicine; Referring Provider Nurse Practitioner Family; Visit Provider Nurse Practitioner Family
DX: L73.2 Hidradenitis suppurativa (principal); L98.492 Non-pressure chronic ulcer of skin of other sites with fat layer exposed; L02.215 Cutaneous abscess of perineum; E11.9 Type 2 diabetes mellitus without complications; F17.200 Nicotine dependence, unspecified, uncomplicated; T86.821 Skin graft (allograft) (autograft) failure; Y83.8 Other surgical procedures as the cause of abnormal reaction of the patient, or of later complication, without mention of misadventure at the time of the procedure
CPT/HCPCS: 11042; 11045

== ENCOUNTER 2020-04-30 09:00 | Outpatient (RCR) | payer OTHER, SELFPAY ==
[2020-04-09 00:22] VITALS: BP 160/97; PULSE 86; RESP 20; TEMP 36.2; O2SAT 97
[2020-04-09 13:08] VITALS: BP 122/84; PULSE 94; RESP 16; TEMP 36.6; BMI 33.6
--- NOTE | 2020-04-09 13:46 | PN.PCM_ITS ---
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 Code(s): T86.828 - Other complications of skin graft (allograft) (autograft) (4) Smoker Status: Chronic Code(s): F17.200 - Nicotine dependence, unspecified, uncomplicated (5) Pain aggravated by sitting Status: Chronic Code(s): R52 - Pain, unspecified (6) Hidradenitis suppurativa Status: Chronic Code(s): L73.2 - Hidradenitis suppurativa Comment: abdominal wall skin crease bilateral inguinal/medial thighs Type of Wound Date of Service: 04/09/20 Chief Complaint: Nonhealing hidradenitis ulcer bilateral superior gluteal/perianal area with recent skin grafting and graft compromise and intermittent abrasion ulceration abdominal wall and recent hidradenitis flare up in perineal area. History of Wound: Surgery 01/02/20 - Surgical preparation bilateral superior gluteal/perianal area with excisional debridement nonhealing hidradenitis ulcer and STSG reconstruction from left posterior flank (4.5 cm2) and placement of AmnioFill placental connective tissue powder (250 mg). There was compromise on the skin graft that initially healed but developed a small re-ulceration. He also sustained recurrent abdominal wall abrasion ulceration mostl likely from friction from skin rubbing together, which remains healed. He also developed a new area of infection on his perineum. It was drained on 02/16/20 at urgent care and they placed him on Levaquin and Flagyl. Wound Care - Sacral ulcer collagen hydrogel. The perineal area is now soft and no longer draining. Operative culture from 01/02/20 was negative for bacterial growth. He was treated perioperatively with Levaquin and Augmentin from a preop wound culture on 11/28/2019 that showed Klebsiella pneumoniae sp pneum, Enterococcus faecalis, MRSE, and Corynebacterium amycolatum and has finished them. Prealbumin from 01/03/20 was 21.9. Encourage nutritional supplementation with protein to help the healing process. HgbA1c from 01/03/20 was 8.3. He has had intermittent flare ups in his bilateral inguinal and upper medial thigh areas that responded to Doxycycline. He has complained about pelvic floor pain and was referred for pelvic floor therapy in [place]. He hasn't gone yet due to various issues including Covid19, but he states his pelvic floor pain is better. Today he denies fever. His appetite is better. Progress of Wound: Improved. - Physical Exam Vital Signs Temp Pulse Resp BP Pulse Ox 98 F 94 16 122/84 H 97 04/09/20 13:08 04/09/20 13:08 04/09/20 13:08 04/09/20 13:08 04/09/20 00:22 General: Alert, Oriented x3, Cooperative HEENT: Atraumatic Oral: Moist Mucosa Lungs: Normal air movement Cardiovascular: Regular rate Abdomen: Bowel Sounds Present Extremities: No edema Skin: Ulcer/ Wound - Sacral ulcer Wound Measurements and Assessment WC - Nurse 1 - General Ulcer Measurement Start: 04/09/20 13:08 Freq: Status: Active Protocol: Activity Type Activity Date Activity User E-Sign Co-Sign Detail Recorded Client Recorded Date Recorded By Document 04/09/20 13:08 [facility] [id number] 04/09/20 13:10 [facility] 04/09/20 13:08 Wound Center Nurse 1 [Ulcer Assessment] #2 Sacral -Combined with other wound No -Current Size (cm) - Length 0.2 -Current Size (cm) - Width 0.2 -Current Size (cm) - Depth 0.2 -Total Square Cm 0.04 -Photo Taken No -Epithelialization None Present -Tunneling No -Undermining/Tunneling No -Circular Undermining No -Exudate Amt None Present -Wound Margin Distinct, Outline Attached -Granulation Amt Small (1-33%) -Granulation Quality [place] -Slough/Fibrin Yes -Necrosis Amt Small (1-33%) -Necrotic Tissue Type Adherent Slough -Texture (Kassandra-wound Skin Appearance) Assessed, Scarring -Moisture (Kassandra-wound Skin Appearance Assessed,Dry/ ) Scaly -Color (Kassandra-wound Skin Appearance) Assessed -Temperature (Kassandra-wound Skin No Abnormality Appearance) (Pt Warm) -Tenderness on Palpation (Kassandra-wound No Skin Appearance) -Ulcer Cleansing Rinsed/ Irrigated with Saline -Foul Odor after Cleansing No -Anesthetic Used 5% Lidocaine Gel Musculoskeletal: No Tenderness to Palpation of Joints or Extremities Neurological: Neuro grossly intact Psych/Mental Status: Normal Affect, Appropriate Debridement Note Wound debrided: Sacral ulcer Type of Debridement: Excisional debridement Anesthesia Used: 5% Lidocaine Gel Depth: Down to and including healthy tissue, in the subcutaneous layer Percentage of wound debrided: 100 Instrument Used: 3mm curette Tissue Removed: Subcutaneous tissue and slough Severity: Fat Layer Exposed Amount of bleeding with debridement: Mild Bleeding Controlled with: Pressure Patient tolerated procedure well Assessment/Plan Assessment: 1. Nonhealing hidradenitis ulcer bilateral superior gluteal/perianal area with recent skin grafting and graft compromise. 2. Compromised skin graft. 3. Hidradenitis. 4. Diabetes. 5. Smoker. 6. Hidradenitis bilateral inguinal and medial upper thigh areas, stable. 7. Hidradenitis perineum, stable. Plan: The perianal skin graft had healed but has developed an abrasion re-ulceration probably from friction from skin rubbing together. Also the Sitz baths may have contributed as well. The Sitz baths were treating the new onset hidradenitis infection in the perineal area. It is stable today after it had drained, he has stopped the sitz baths.. He was started on Levaquin and Flagyl and has finished them. Abdominal wall re-ulceration remains healed today. Instructed him to keep this area dry. He has some gauze to help absorb the moisture in this area. Wound Care - Collagen hydrogel to the sacral skin graft ulcer. The perineum is no longer firm or draining. Will stop the sitz baths. Surgical wound culture was negative and he was treated with Levaquin and Augmentin from a preop culture on 11/28/19 that showed Klebsiella pneumoniae sp pneum, Enterococcus faecalis, MRSE, and Corynebacterium amycolatum and has finished them. Prealbumin from 01/03/20 was 21.9. Encourage nutritional supplementation with protein to help the healing process. HgA1C from 01/03/20 was 8.3. He has concomitant pelvic floor pain that he is scheduled to see a therapist in [place] for evaluation and treatment. He hasn't gone yet and his pelvic pain is better. Encouraged him to stop smoking as this could be deleterious to his wound healing. Follow up two weeks. Discussed with him possible further surgery in the abdominal wall. He is interested but wants to wait a little while because of the Coronavirus. When he decides on the surgery, will repeat the HgbA1c. It needs to be less than 8. 111xxx-113xx: [id number] Steff subq tissue 20 sq cm/<
[2020-04-23 13:04] VITALS: BP 151/91; PULSE 81; RESP 16; TEMP 36.3; BMI 33.6
--- NOTE | 2020-04-23 15:40 | PN.PCM_ITS ---
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 Current Visit: Yes Code(s): L98.492 - Non-pressure chronic ulcer of skin of other sites with fat layer exposed (3) Hidradenitis suppurativa Status: Chronic Current Visit: Yes Code(s): L73.2 - Hidradenitis suppurativa Comment: abdominal wall skin crease bilateral inguinal/medial thighs (4) Chronic ulcer of buttock Status: Chronic Current Visit: Yes Code(s): L98.419 - Non-pressure chronic ulcer of buttock with unspecified severity (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 Current Visit: Yes Code(s): T86.821 - Skin graft (allograft) (autograft) failure (6) Other complications of skin graft (allograft) (autograft) Status: Chronic Current Visit: Yes Code(s): T86.828 - Other complications of skin graft (allograft) (autograft) (7) Smoker Status: Chronic Current Visit: Yes Code(s): F17.200 - Nicotine dependence, unspecified, uncomplicated (8) Pain aggravated by sitting Status: Chronic Current Visit: Yes Code(s): R52 - Pain, unspecified Type of Wound Date of Service: 04/23/20 Chief Complaint: Nonhealing hidradenitis ulcer bilateral superior gluteal/perianal area with recent skin grafting and graft compromise and intermi ttent abrasion ulceration abdominal wall and recent hidradenitis flare up in perineal area. History of Wound: Surgery 01/02/20 - Surgical preparation bilateral superior gluteal/perianal area with excisional debridement nonhealing hidradenitis ulcer and STSG reconstruction from left posterior flank (4.5 cm2) and placement of AmnioFill placental connective tissue powder (250 mg). There was compromise on the skin graft that initially healed but developed a small re-ulceration. He also sustained recurrent abdominal wall abrasion ulceration mostl likely from friction from skin rubbing together, which is reopened again this week. He also developed a new area of infection on his perineum. It was drained on 02/16/20 at urgent care and they placed him on Levaquin and Flagyl. He has a new abscess on his right lateral chest wall that developed over the past week. It drained the other day but has filled up. Wound Care - Sacral ulcer is healed. The lower mid abdomen ulcer moistened yudith daily. Warm compresses to the right chest wall abscess. Start him on Doxycycline. The perineal area is now soft and no longer draining. Operative culture from 01/02/20 was negative for bacterial growth. He was treated perioperatively with Levaquin and Augmentin from a preop wound culture on 11/28/2019 that showed Klebsiella pneumoniae sp pneum, Enterococcus faecalis, MRSE, and Corynebacterium amycolatum and has finished them. Prealbumin from 01/03/20 was 21.9. Encourage nutritional supplementation with protein to help the healing process. HgbA1c from 01/03/20 was 8.3. He has had intermittent flare ups in his bilateral inguinal and upper medial thigh areas that responded to Doxycycline. He has complained about pelvic floor pain and was referred for pelvic floor therapy in [place]. He started therapy over the last 2 weeks now that the therapy place is opened. Today he denies fever. His appetite is better. Progress of Wound: Sacral ulcer is healed. Lower abdominal ulcer reopened. New abscess on right lateral chest wall. - Physical Exam Vital Signs Temp Pulse Resp BP Pulse Ox 97.3 F L 81 16 151/91 H 97 04/23/20 13:04 04/23/20 13:04 04/23/20 13:04 04/23/20 13:04 04/09/20 00:22 General: Alert, Oriented x3, Cooperative HEENT: Atraumatic Oral: Moist Mucosa Lungs: Normal air movement Cardiovascular: Regular rate Extremities: Capillary Refill Less than 3 Seconds Skin: Ulcer/ Wound - Lower mid abdomen ulcer reopened. Right lateral ches wall abscess that is 2.5 cm diameter raised area that is tender to palpation. Wound Measurements and Assessment WC - Nurse 1 - General Ulcer Measurement Start: 04/09/20 13:08 Freq: Status: Active Protocol: Activity Type Activity Date Activity User E-Sign Co-Sign Detail Recorded Client Recorded Date Recorded By Document 04/23/20 13:04 [id number] 04/23/20 13:11 CS 04/23/20 13:04 Wound Center Nurse 1 [Ulcer Assessment] #9 Mid Abdomen -Combined with other wound No -Current Size (cm) - Length 1.9 -Current Size (cm) - Width 3 -Current Size (cm) - Depth 0.3 -Total Square Cm 5.7 -Date of Last Picture (Recall this 04/23/20 field) -Photo Taken Yes -Epithelialization None Present -Tunneling No -Undermining/Tunneling No -Circular Undermining No -Exudate Amt Medium -Exudate Type Serosanguineous -Wound Margin Distinct, Outline Attached -Granulation Amt Large (67-100%) -Granulation Quality [place],Red -Slough/Fibrin Yes -Necrosis Amt None Present (0 %) -Necrotic Tissue Type Adherent Slough -Structure Exposed N/A -Texture (Kassandra-wound Skin Appearance) Assessed, Scarring -Moisture (Kassandra-wound Skin Appearance Assessed, ) Maceration -Temperature (Kassandra-wound Skin No Abnormality Appearance) (Pt Warm) -Tenderness on Palpation (Kassandra-wound No Skin Appearance) -Ulcer Cleansing Rinsed/ Irrigated with Saline -Foul Odor after Cleansing No -Anesthetic Used 4% Lidocaine Solution #2 Sacral -Combined with other wound No -Current Size (cm) - Length 0.1 -Current Size (cm) - Width 0.1 -Current Size (cm) - Depth 0.1 -Total Square Cm 0.01 -Date of Last Picture (Recall this 04/23/20 field) -Photo Taken Yes -Epithelialization Large 67-100% -Temperature (Kassandra-wound Skin No Abnormality Appearance) (Pt Warm) -Tenderness on Palpation (Kassandra-wound No Skin Appearance) -Ulcer Cleansing Rinsed/ Irrigated with Saline -Foul Odor after Cleansing No -Anesthetic Used 4% Lidocaine Solution [Edema Assessment] -Lower Limb Edema Present NA WC - Nurse 2 - General Ulcer CM Notes Start: 04/09/20 13:08 Freq: Status: Active Protocol: Activity Type Activity Date Activity User E-Sign Co-Sign Detail Recorded Client Recorded Date Recorded By Document 04/23/20 14:44 THAO [id number] 04/23/20 14:45 PL 04/23/20 14:44 Wound Center Nurse 2 [Procedure/Treatment] #9 Mid Abdomen -Time 13:50 -Correct Patient Yes -Correct Side, Site, Position Yes -Correct Procedure Yes -Procedure Performed Yes -Type of Procedure Debridement -Clinical Debridement Subcutaneous -Post Debridement Size (cm) - Length 2 -Post Debridement Size (cm) - Width 3 -Post Debridement Size (cm) - Depth 0.4 -Total Square Cm 6 -Wound/Ulcer Outcome Not Healed -Ulcer Cleansing Rinsed/ Irrigated with Saline -Foul Odor after Cleansing No -Bleeding Controlled with Pressure -Treatment Response Procedure Tolerated Well #2 Sacral -Procedure Performed No -Wound/Ulcer Outcome Healed- Epithelialized [See Physician Procedure note for Specifics] Pain Scale: 0-10 Numeric [Pain] -Is Patient Pain Free? Yes Musculoskeletal: No Muscle Wasting Neurological: Neuro grossly intact Psych/Mental Status: Normal Affect, Appropriate Debridement Note Post-Debridement Measurements/Treatment WC - Nurse 2 - General Ulcer CM Notes Start: 04/09/20 13:08 Freq: Status: Active Protocol: Activity Type Activity Date Activity User E-Sign Co-Sign Detail Recorded Client Recorded Date Recorded By Document 04/09/20 16:04 PL [id number] 04/09/20 16:05 PL Document 04/23/20 14:44 PL [id number] 04/23/20 14:45 PL 04/09/20 04/23/20 16:04 14:44 Wound Center Nurse 2 #9 Mid Abdomen -Time 13:50 -Correct Patient Yes -Correct Side, Site, Position Yes -Correct Procedure Yes -Procedure Performed Yes -Type of Procedure Debridement -Clinical Debridement Subcutaneous -Post Debridement Size (cm) - Length 2 -Post Debridement Size (cm) - Width 3 -Post Debridement Size (cm) - Depth 0.4 -Total Square Cm 6 -Wound/Ulcer Outcome Not Healed -Ulcer Cleansing Rinsed/ Irrigated with Saline -Foul Odor after Cleansing No -Bleeding Controlled with Pressure -Treatment Response Procedure Tolerated Well #2 Sacral -Time 13:24 -Correct Patient Yes -Correct Side, Site, Position Yes -Correct Procedure Yes -Procedure Performed Yes No -Type of Procedure Debridement -Clinical Debridement Subcutaneous -Post Debridement Size (cm) - Length 0.3 -Post Debridement Size (cm) - Width 0.3 -Post Debridement Size (cm) - Depth 0.2 -Total Square Cm 0.09 -Wound/Ulcer Outcome Not Healed Healed- Epithelialized -Ulcer Cleansing Rinsed/ Irrigated with Saline -Foul Odor after Cleansing No -Treatment Response Procedure Tolerated Well Pain Scale: 0-10 Numeric Is Patient Pain Free? Yes Yes Wound debrided: Mid lower abdominal ulcer Type of Debridement: Excisional debridement Anesthesia Used: 5% Lidocaine Gel Depth: Down to and including healthy tissue, in the subcutaneous layer Percentage of wound debrided: 100 Instrument Used: 3mm curette Tissue Removed: Subcutaneous tissue and slough Severity: Fat Layer Exposed Amount of bleeding with debridement: Mild Bleeding Controlled with: Pressure Patient tolerated procedure well Assessment/Plan Active Problems (Last Reviewed 07/29/19 @ 00:[address] 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 Nonhealing hidradenitis ulcer bilateral superior gluteal/perianal area with recent skin grafting and graft compromise. 2. Compromised skin graft. 3. Hidradenitis. 4. Diabetes. 5. Smoker. 6. Hidradenitis bilateral inguinal and medial upper thigh areas, stable. 7. Hidradenitis perineum, stable. Plan: Sacral ulcer remains healed. Encouraged him to massage the area to help soften the scarring. His lower mid abdominal wall ulcer has reopened. Wound Care- moistened Yudith daily. Obtained a wound culture today, 04/23/20 to the mid abdominal ulcer. He has a new abscess to his right lateral chest wall that is red, raised and tender to palpation. Encouraged warm, moist compresses to help it drain. Will start him on Doxycycline. Instructed him to keep this area dry. He has some gauze to help absorb the moisture in this area. Surgical wound culture was negative and he was treated with Levaquin and Augmentin from a preop culture on 11/28/19 that showed Klebsiella pneumoniae sp pneum, Enterococcus faecalis, MRSE, and Corynebacterium amycolatum and has finished them. Prea lbumin from 01/03/20 was 21.9. Encourage nutritional supplementation with protein to help the healing process. HgA1C from 01/03/20 was 8.3. He has pelvic floor pain that he is scheduled to see a therapist in [place] for evaluation and treatment. He started therapy last week. Encouraged him to stop smoking as this could be deleterious to his wound healing. Will refer him to Dr. Junior Gonzalez, endocrinology to help him get better control of his blood surgars. Follow up one week. Discussed with him possible further surgery in the abdominal wall. He is interested but wants to wait a little while because of the Coronavirus. When he decides on the surgery, will repeat the HgbA1c. It needs to be less than 8. 111xxx-113xx: [id number] Steff subq tissue 20 sq cm/<
[2020-04-30 09:47] VITALS: BP 126/88; PULSE 82; RESP 18; TEMP 36.8; BMI 33.6
--- NOTE | 2020-04-30 11:11 | PN.PCM_ITS ---
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 Current Visit: Yes Code(s): L98.492 - Non-pressure chronic ulcer of skin of other sites with fat layer exposed (3) Hidradenitis suppurativa Status: Chronic Current Visit: Yes Code(s): L73.2 - Hidradenitis suppurativa Comment: abdominal wall skin crease bilateral inguinal/medial thighs (4) Chronic ulcer of buttock Status: Chronic Current Visit: Yes Code(s): L98.419 - Non-pressure chronic ulcer of buttock with unspecified severity (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 Current Visit: Yes Code(s): T86.821 - Skin graft (allograft) (autograft) failure (6) 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 History of Wound: Surgery 01/02/20 - Surgical preparation bilateral superior gluteal/perianal area with excisional debridement nonhealing hidradenitis ulcer and STSG reconstruction from left posterior flank (4.5 cm2) and placement of AmnioFill placental connective tissue powder (250 mg). There was compromise on the skin graft that initially healed but developed a small re-ulceration. He also sustained recurrent abdominal wall abrasion ulceration mostl likely from friction from skin rubbing together, which is reopened again this week. He also developed a new area of infection on his perineum. It was drained on 02/16/20 at urgent care and they placed him on Levaquin and Flagyl. He has a new abscess on his right lateral chest wall that developed over the past week. It drained the other day but has filled up. Wound Care - Sacral ulcer remains healed. The lower mid abdomen ulcer moistened yudith daily. Warm compresses to the right chest wall abscess, which has helped it drain. The perineal area is now soft and no longer draining. Wound culture from 04/23/20 was positive for Staphylococcus aureus, Proteus mirabilis, and Streptococcus agalactiae (B). Stopped the Doxycycline and started him on Levaquin and will start Augmentin today to cover the Strep B. Operative culture from 01/02/20 was negative for bacterial growth. He was treated perioperatively with Levaquin and Augmentin from a preop wound culture on 11/28/2019 that showed Klebsiella pneumoniae sp pneum, Enterococcus faecalis, MRSE, and Corynebacterium amycolatum and has finished them. Prealbumin from 01/03/20 was 21.9. Encourage nutritional supplementation with protein to help the healing process. HgbA1c from 01/03/20 was 8.3. He has had intermittent flare ups in his bilateral inguinal and upper medial thigh areas that responded to Doxycycline. He has complained about pelvic floor pain and was referred for pelvic floor therapy in [place]. He started therapy over the last 2 weeks now that the therapy place is opened. Today he denies fever. His appetite is better. Progress of Wound: Sacral ulcer is healed. Lower abdominal ulcer is stable. Right lateral chest wall abscess has improved since it has drained. - Physical Exam Vital Signs Temp Pulse Resp BP Pulse Ox 98.3 F 82 18 126/88 H 97 04/30/20 09:47 04/30/20 09:47 04/30/20 09:47 04/30/20 09:47 04/09/20 00:22 General: Alert, Oriented x3, Cooperative HEENT: Atraumatic Oral: Moist Mucosa Lungs: Normal air movement Cardiovascular: Regular rate Abdomen: Soft, Non Tender Extremities: Capillary Refill Less than 3 Seconds Skin: Ulcer/ Wound - Mid lower abdominal ulcer, is pink. Wound Measurements and Assessment WC - Nurse 1 - General Ulcer Measurement Start: 04/09/20 13:08 Freq: Status: Active Protocol: Activity Type Activity Date Activity User E-Sign Co-Sign Detail Recorded Client Recorded Date Recorded By Document 04/30/20 09:47 [id number] 04/30/20 09:50 BS 04/30/20 09:47 Wound Center Nurse 1 [Ulcer Assessment] #9 Mid Abdomen -Combined with other wound No -Current Size (cm) - Length 2.7 -Current Size (cm) - Width 0.5 -Current Size (cm) - Depth 0.1 -Total Square Cm 1.35 -Photo Taken No -Undermining/Tunneling No -Granulation Quality [place],Red -Texture (Kassandra-wound Skin Appearance) Assessed, Scarring -Moisture (Kassandra-wound Skin Appearance No Abnormality, ) Assessed -Color (Kassandra-wound Skin Appearance) Assessed, Hemosiderin Staining -Temperature (Kassandra-wound Skin No Abnormality Appearance) (Pt Warm) -Tenderness on Palpation (Kassandra-wound No Skin Appearance) -Ulcer Cleansing Soap and water -Foul Odor after Cleansing No -Anesthetic Used 4% Lidocaine Solution [Edema Assessment] -Lower Limb Edema Present NA WC - Nurse 2 - General Ulcer CM Notes Start: 04/09/20 13:08 Freq: Status: Active Protocol: Activity Type Activity Date Activity User E-Sign Co-Sign Detail Recorded Client Recorded Date Recorded By Document 04/30/20 10:07 TONG [id number] 04/30/20 10:12 TONG 04/30/20 10:07 Wound Center Nurse 2 [Procedure/Treatment] #9 Mid Abdomen -Time 10:09 -Correct Patient Yes -Correct Side, Site, Position Yes -Correct Procedure Yes -Procedure Performed Yes -Type of Procedure Debridement -Clinical Debridement Subcutaneous -Post Debridement Size (cm) - Length 1.5 -Post Debridement Size (cm) - Width 2.7 -Post Debridement Size (cm) - Depth 0.2 -Total Square Cm 4.05 -Wound/Ulcer Outcome Not Healed -Ulcer Cleansing Rinsed/ Irrigated with Saline -Foul Odor after Cleansing No -Bioengineered Tissue No -Bleeding Controlled with Pressure -Offloading No -Treatment Response Procedure Tolerated Well [See Physician Procedure note for Specifics] Pain Scale: 0-10 Numeric [Pain] -Is Patient Pain Free? Yes Musculoskeletal: No Tenderness to Palpation of Joints or Extremities Neurological: Neuro grossly intact Psych/Mental Status: Normal Affect, Appropriate Debridement Note Post-Debridement Measurements/Treatment WC - Nurse 2 - General Ulcer CM Notes Start: 04/09/20 13:08 Freq: Status: Active Protocol: Activity Type Activity Date Activity User E-Sign Co-Sign Detail Recorded Client Recorded Date Recorded By Document 04/09/20 16:04 PL [id number] 04/09/20 16:05 PL Document 04/23/20 14:44 PL [id number] 04/23/20 14:45 PL Document 04/30/20 10:07 [id number] 04/30/20 10:12 04/09/20 04/23/20 04/30/20 16:04 14:44 10:07 Wound Center Nurse 2 #9 Mid Abdomen -Time 13:50 10:09 -Correct Patient Yes Yes -Correct Side, Site, Position Yes Yes -Correct Procedure Yes Yes -Procedure Performed Yes Yes -Type of Procedure Debridement Debridement -Clinical Debridement Subcutaneous Subcutaneous -Post Debridement Size (cm) - Length 2 1.5 -Post Debridement Size (cm) - Width 3 2.7 -Post Debridement Size (cm) - Depth 0.4 0.2 -Total Square Cm 6 4.05 -Wound/Ulcer Outcome Not Healed Not Healed -Ulcer Cleansing Rinsed/ Rinsed/ Irrigated with Irrigated with Saline Saline -Foul Odor after Cleansing No No -Bioengineered Tissue No -Bleeding Controlled with Pressure Pressure -Offloading No -Treatment Response Procedure Procedure Tolerated Well Tolerated Well #2 Sacral -Time 13:24 -Correct Patient Yes -Correct Side, Site, Position Yes -Correct Procedure Yes -Procedure Performed Yes No -Type of Procedure Debridement -Clinical Debridement Subcutaneous -Post Debridement Size (cm) - Length 0.3 -Post Debridement Size (cm) - Width 0.3 -Post Debridement Size (cm) - Depth 0.2 -Total Square Cm 0.09 -Wound/Ulcer Outcome Not Healed Healed- Epithelialized -Ulcer Cleansing Rinsed/ Irrigated with Saline -Foul Odor after Cleansing No -Treatment Response Procedure Tolerated Well Pain Scale: 0-10 Numeric Is Patient Pain Free? Yes Yes Yes Wound debrided: Mid lower abdominal ulcer Type of Debridement: Excisional debridement Anesthesia Used: 5% Lidocaine Gel Depth: Down to and including healthy tissue, in the subcutaneous layer Percentage of wound debrided: 100 Instrument Used: 3mm curette Tissue Removed: Subcutaneous tissue and slough Severity: Fat Layer Exposed Amount of bleeding with debridement: Mild Bleeding Controlled with: Pressure Patient tolerated procedure well Assessment/Plan Active Problems (Last Reviewed 07/29/19 @ 00:[address] 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 Nonhealing hidradenitis ulcer bilateral superior gluteal/perianal area with recent skin grafting and graft compromise. 2. Compromised skin graft. 3. Hidradenitis. 4. Diabetes. 5. Smoker. 6. Hidradenitis bilateral inguinal and medial upper thigh areas, stable. 7. Hidradenitis perineum, stable. Plan: Sacral ulcer remains healed. Encouraged him to massage the area to help soften the scarring. His lower mid abdominal wall ulcer has reopened. Wound Care- moistened Yudith daily. Wound culture of lower mid abdominal ulcer from 04/23/20 was positive for Staphylococcus aureus, Proteus mirabilis, and Streptococcus agalactiae (B). Stopped the Doxycycline and started him on Levaquin and will start Augmentin today to cover the Strep B. His abscess to his right lateral chest wall has drained and has improved since last week. Will continue to monitor the area. Surgical wound culture was negative and he was treated with Levaquin and Augmentin from a preop culture on 11/28/19 that showed Klebsiella pneumoniae sp pneum, Enterococcus faecalis, MRSE, and Corynebacterium amycolatum and has finished them. Prealbumin from 01/03/20 was 21.9. Encourage nutritional supplementation with protein to help the healing process. HgA1C from 01/03/20 was 8.3. He has pelvic floor pain that he is scheduled to see a therapist in [place] for evaluation and treatment. He started therapy last week. Encouraged him to stop smoking as this could be deleterious to his wound healing. Will refer him to Dr. Junior Gonzalez, endocrinology to help him get better control of his blood surgars. Follow up two weeks. Discussed with him possible further surgery in the abdominal wall. He is interested but wants to wait a little while because of the Coronavirus. When he decides on the surgery, will repeat the HgbA1c. It needs to be less than 8. 111xxx-113xx: [id number] Steff subq tissue 20 sq cm/<
== END 2020-05-08 23:59 ==
LOC: WC 09:00
PROVIDERS: Family Provider Internal Medicine; PCP Internal Medicine; Referring Provider Nurse Practitioner Family; Visit Provider Nurse Practitioner Family
DX: L98.492 Non-pressure chronic ulcer of skin of other sites with fat layer exposed (principal); L02.213 Cutaneous abscess of chest wall; L73.2 Hidradenitis suppurativa; E11.9 Type 2 diabetes mellitus without complications; T86.821 Skin graft (allograft) (autograft) failure; Y83.8 Other surgical procedures as the cause of abnormal reaction of the patient, or of later complication, without mention of misadventure at the time of the procedure; G89.29 Other chronic pain; F17.200 Nicotine dependence, unspecified, uncomplicated
CPT/HCPCS: 11042; 87070; 87075; 87077; 87186; 87205

== ENCOUNTER 2020-06-04 13:00 | Outpatient (RCR) | payer OTHER, SELFPAY ==
[2020-05-09 00:22] VITALS: BP 126/88; PULSE 82; RESP 18; TEMP 36.8; O2SAT 97
[2020-05-14 13:39] VITALS: BP 133/88; PULSE 79; RESP 16; TEMP 36.3; BMI 33.6
--- NOTE | 2020-05-14 14:51 | PCM.WC.PN ---
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: Chronic Current Visit: Yes Code(s): L98.492 - Non-pressure chronic ulcer of skin of other sites with fat layer exposed (2) Diabetes Status: Chronic Current Visit: Yes Code(s): E11.9 - Type 2 diabetes mellitus without complications (3) Hidradenitis suppurativa Status: Chronic Current Visit: Yes Code(s): L73.2 - Hidradenitis suppurativa Comment: abdominal wall skin crease bilateral inguinal/medial thighs (4) Smoker Status: Chronic Current Visit: Yes Code(s): F17.200 - Nicotine dependence, unspecified, uncomplicated Type of Wound Date of Service: 05/14/20 Chief Complaint: Nonhealing hidradenitis ulcer bilateral superior gluteal/perianal area with recent skin grafting and graft compromise and intermittent abrasion ulceration abdominal wall and recent hidradenitis flare up in perineal area. History of Wound: Surgery 01/02/20 - Surgical preparation bilateral superior gluteal/perianal area with excisional debridement nonhealing hidradenitis ulcer and STSG reconstruction from left posterior flank (4.5 cm2) and placement of AmnioFill placental connective tissue powder (250 mg). There was compromise on the skin graft that initially healed but developed a small re-ulceration. He also sustained recurrent abdominal wall abrasion ulceration mostl likely from friction from skin rubbing together, which is reopened again this week. He also developed a new area of infection on his perineum. It was drained on 02/16/20 at urgent care and they placed him on Levaquin and Flagyl. He has a new abscess on his right lateral chest wall that developed. It drained has drained with warm compresses helping to bring it to a head. It is no longer bothering him. Wound Care - Sacral ulcer remains healed. The lower mid abdomen ulcer moistened yudith daily. Wound culture from 04/23/20 was positive for Staphylococcus aureus, Proteus mirabilis, and Streptococcus agalactiae (B). Stopped the Doxycycline and started him on Levaquin and Augmentin to cover the Strep B. Operative culture from 01/02/20 was negative for bacterial growth. He was treated perioperatively with Levaquin and Augmentin from a preop wound culture on 11/28/2019 that showed Klebsiella pneumoniae sp pneum, Enterococcus faecalis, MRSE, and Corynebacterium amycolatum and has finished them. Prealbumin from 01/03/20 was 21.9. Encourage nutritional supplementation with protein to help the healing process. HgbA1c from 01/03/20 was 8.3. He has had intermittent flare ups in his bilateral inguinal and upper medial thigh areas that responded to Doxycycline. He has complained about pelvic floor pain and was referred for pelvic floor therapy in [place]. He started therapy a few weeks ago. Today he denies fever. His appetite is better. Progress of Wound: Sacral ulcer is healed. Lower abdominal ulcer is stable. Right lateral chest wall abscess is healing. - Physical Exam Vital Signs Temp Pulse Resp BP Pulse Ox 97.4 F L 79 16 133/88 H 97 05/14/20 13:39 05/14/20 13:39 05/14/20 13:39 05/14/20 13:39 05/09/20 00:22 General: Alert, Oriented x3, Cooperative HEENT: Atraumatic Oral: Moist Mucosa Lungs: Normal air movement Cardiovascular: Regular rate Abdomen: Soft, Non Tender Extremities: Capillary Refill Less than 3 Seconds Skin: Ulcer/ Wound - Lower abdomen, mid incision opening Wound Measurements and Assessment WC - Nurse 1 - General Ulcer Measurement Start: 05/14/20 13:39 Freq: Status: Active Protocol: Activity Type Activity Date Activity User E-Sign Co-Sign Detail Recorded Client Recorded Date Recorded By Document 05/14/20 13:39 MW [id number] 05/14/20 13:41 MW 05/14/20 13:39 Wound Center Nurse 1 [Ulcer Assessment] #9 Mid Abdomen -Combined with other wound No -Current Size (cm) - Length 0.1 -Current Size (cm) - Width 0.1 -Current Size (cm) - Depth 0.1 -Total Square Cm 0.01 -Photo Taken No -Epithelialization Medium 34-66% -Tunneling No -Undermining/Tunneling No -Circular Undermining No -Exudate Amt Small -Exudate Type Serosanguineous -Wound Margin Flat & Intact -Granulation Amt None Present (0 %) -Granulation Quality N/A -Slough/Fibrin Yes -Necrosis Amt Large (67-100%) -Necrotic Tissue Type Adherent Slough -Structure Exposed N/A -Texture (Kassandra-wound Skin Appearance) Assessed, Scarring -Moisture (Kassandra-wound Skin Appearance Assessed,Dry/ ) Scaly -Color (Kassandra-wound Skin Appearance) No Abnormality, Assessed -Temperature (Kassandra-wound Skin No Abnormality Appearance) (Pt Warm) -Tenderness on Palpation (Kassandra-wound Yes Skin Appearance) -Ulcer Cleansing Rinsed/ Irrigated with Saline -Foul Odor after Cleansing No -Anesthetic Used 5% Lidocaine Gel [Edema Assessment] -Lower Limb Edema Present No Musculoskeletal: No Tenderness to Palpation of Joints or Extremities Neurological: Neuro grossly intact Psych/Mental Status: Normal Affect, Appropriate Debridement Note Wound debrided: Mid lower abdominal ulcer Type of Debridement: Excisional debridement Anesthesia Used: 5% Lidocaine Gel Depth: Down to and including healthy tissue, in the subcutaneous layer Percentage of wound debrided: 100 Instrument Used: 3mm curette Tissue Removed: Subcutaneous tissue and slough Severity: Limited To Skin Breakdown Amount of bleeding with debridement: Mild Bleeding Controlled with: Pressure Patient tolerated procedure well Assessment/Plan Active Problems (Last Reviewed 07/29/19 @ 00:[address] Tyron Yang MD) Skin ulcer of abdominal wall with fat layer exposed (Chronic) Diabetes (Chronic) Smoker (Chronic) Hidradenitis suppurativa (Chronic) abdominal wall skin crease bilateral inguinal/medial thighs Assessment: 1. Nonhealing hidradenitis ulcer bilateral superior gluteal/perianal area with recent skin grafting and graft compromise. 2. Compromised skin graft. 3. Hidradenitis. 4. Diabetes. 5. Smoker. 6. Hidradenitis bilateral inguinal and medial upper thigh areas, stable. 7. Hidradenitis perineum, stable. Plan: Sacral ulcer remains healed. Encouraged him to massage the area to help soften the scarring. His lower mid abdominal wall ulcer remains opened. Wound Care- moistened Yudith daily. Wound culture of lower mid abdominal ulcer from 04/23/20 was positive for Staphylococcus aureus, Proteus mirabilis, and Streptococcus agalactiae (B). Stopped the Doxycycline and started him on Levaquin and Augmentin to cover the Strep B. His abscess to his right lateral chest wall has drained and is improved. Will continue to monitor the area. Follow up 3 weeks. Surgical wound culture was negative and he was treated with Levaquin and Augmentin from a preop culture on 11/28/19 that showed Klebsiella pneumoniae sp pneum, Enterococcus faecalis, MRSE, and Corynebacterium amycolatum and has finished them. Prealbumin from 01/03/20 was 21.9. Encourage nutritional supplementation with protein to help the healing process. HgA1C from 01/03/20 was 8.3. He has pelvic floor pain that he is scheduled to see a therapist in [place] for evaluation and treatment. He started therapy last week. Encouraged him to stop smoking as this could be deleterious to his wound healing. Will refer him to Dr. Junior Gonzalez, endocrinology to help him get better control of his blood surgars. Follow up two weeks. Discussed with him possible further surgery in the abdominal wall. He is interested but wants to wait a little while because of the Coronavirus. When he decides on the surgery, will repeat the HgbA1c. It needs to be less than 8. 111xxx-113xx: [id number] Steff subq tissue 20 sq cm/<
[2020-06-04 13:17] VITALS: BP 138/92; PULSE 78; RESP 16; TEMP 36.8; BMI 33.6
--- NOTE | 2020-06-04 14:30 | PN.PCM_ITS ---
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: Chronic Code(s): L98.492 - Non-pressure chronic ulcer of skin of other sites with fat layer exposed (2) Facial abscess Status: Acute Code(s): L02.01 - Cutaneous abscess of face (3) Cutaneous abscess of abdominal wall Status: Acute Code(s): L02.211 - Cutaneous abscess of abdominal wall (4) Diabetes Status: Chronic Code(s): E11.9 - Type 2 diabetes mellitus without complications (5) Hidradenitis suppurativa Status: Chronic Code(s): L73.2 - Hidradenitis suppurativa Comment: abdominal wall skin crease bilateral inguinal/medial thighs (6) Smoker Status: Chronic Code(s): F17.200 - Nicotine dependence, unspecified, uncomplicated Type of Wound Date of Service: 06/04/20 Chief Complaint: Nonhealing hidradenitis ulcer bilateral superior gluteal/perianal area with recent skin grafting and graft compromise and intermittent abrasion ulceration abdominal wall and recent hidradenitis flare up in perineal area. History of Wound: Surgery 01/02/20 - Surgical preparation bilateral superior gluteal/perianal area with excisional debridement nonhealing hidradenitis ulcer and STSG reconstruction from left posterior flank (4.5 cm2) and placement of AmnioFill placental connective tissue powder (250 mg). There was compromise on the skin graft that initially healed but developed a small re-ulceration. He also sustained recurrent abdominal wall abrasion ulceration mostl likely from friction from skin rubbing together. The medial opening has closed but he has a new opening on the left lower abdominal skin crease. He also has an abscess that has drained on the RUQ which is now soft. He has abscess on his left chin which has not drained yet. Wound Care - The lower mid abdomen ulcer is healed today. Left lower abdomen ulcer was cultured. Will apply aquacel - Ag to opened area. Warm moist compresses to left chin abscess/boil. Wound culture from 04/23/20 was positive for Staphylococcus aureus, Proteus mirabilis, and Streptococcus agalactiae (B). Stopped the Doxycycline and started him on Levaquin and Augmentin to cover the Strep B. Operative culture from 01/02/20 was negative for bacterial growth. He was treated perioperatively with Levaquin and Augmentin from a preop wound culture on 11/28/2019 that showed Klebsiella pneumoniae sp pneum, Enterococcus faecalis, MRSE, and Corynebacterium amycolatum and has finished them. Prealbumin from 01/03/20 was 21.9. Encourage nutritional supplementation with protein to help the healing process. HgbA1c from 01/03/20 was 8.3. He has had intermittent flare ups in his bilateral inguinal and upper medial thigh areas that responded to Doxycycline. He has complained about pelvic floor pain and was referred for pelvic floor therapy in [place]. He started therapy a few weeks ago. Today he denies fever. His appetite is better. Progress of Wound: Sacral ulcer is healed. Lower abdominal ulcer center is healed but there is a new opening of the lower abdominal area on the left. RUQ has a healing area that recently drained. He has a large abscess on his left chin that is new and painful to palpation. - Physical Exam Vital Signs Temp Pulse Resp BP Pulse Ox 98.3 F 78 16 138/92 H 97 06/04/20 13:17 06/04/20 13:17 06/04/20 13:17 06/04/20 13:17 05/09/20 00:22 General: Alert, Oriented x3, Cooperative HEENT: Atraumatic Oral: Moist Mucosa Lungs: Normal air movement Cardiovascular: Regular rate Abdomen: Soft Extremities: Capillary Refill Less than 3 Seconds Skin: Ulcer/ Wound - Lower left abdomen with new opening. RUQ that drained. Boil/abscess on left chin. Wound Measurements and Assessment WC - Nurse 1 - General Ulcer Measurement Start: 05/14/20 13:39 Freq: Status: Active Protocol: Activity Type Activity Date Activity User E-Sign Co-Sign Detail Recorded Client Recorded Date Recorded By Document 06/04/20 13:[address] [facility] [id number] 06/04/20 13:[address] [facility] 06/04/20 13:17 Wound Center Nurse 1 [Ulcer Assessment] #11- R ABDOMEN -Combined with other wound No -Current Size (cm) - Length 0.1 -Current Size (cm) - Width 0.1 -Current Size (cm) - Depth 0.1 -Total Square Cm 0.01 -Date of Last Picture (Recall this 06/04/20 field) -Photo Taken Yes -Epithelialization None Present -Tunneling No -Undermining/Tunneling No -Circular Undermining No -Exudate Amt Small -Exudate Type Purulent -Wound Margin Distinct, Outline Attached -Granulation Amt Large (67-100%) -Granulation Quality Red -Slough/Fibrin No -Necrosis Amt None Present (0 %) -Texture (Kassandra-wound Skin Appearance) Assessed -Moisture (Kassandra-wound Skin Appearance Assessed ) -Color (Kassandra-wound Skin Appearance) Assessed -Temperature (Kassandra-wound Skin No Abnormality Appearance) (Pt Warm) -Tenderness on Palpation (Kassandra-wound No Skin Appearance) -Ulcer Cleansing Rinsed/ Irrigated with Saline -Foul Odor after Cleansing No -Anesthetic Used 5% Lidocaine Gel #10- L ABD FOLD -Combined with other wound No -Current Size (cm) - Length 0.2 -Current Size (cm) - Width 0.1 -Current Size (cm) - Depth 0.3 -Total Square Cm 0.02 -Date of Last Picture (Recall this 06/04/20 field) -Photo Taken Yes -Epithelialization None Present -Tunneling No -Undermining/Tunneling No -Circular Undermining No -Exudate Amt Small -Exudate Type Serosanguineous -Wound Margin Distinct, Outline Attached -Granulation Amt Large (67-100%) -Granulation Quality Red -Slough/Fibrin No -Necrosis Amt None Present (0 %) -Texture (Kassandra-wound Skin Appearance) Assessed -Moisture (Kassandra-wound Skin Appearance Assessed ) -Color (Kassandra-wound Skin Appearance) Assessed -Temperature (Kassandra-wound Skin No Abnormality Appearance) (Pt Warm) -Tenderness on Palpation (Kassandra-wound No Skin Appearance) -Ulcer Cleansing Rinsed/ Irrigated with Saline -Foul Odor after Cleansing No -Anesthetic Used 5% Lidocaine Gel #9 Mid Abdomen -Combined with other wound No -Current Size (cm) - Length 0.1 -Current Size (cm) - Width 0.1 -Current Size (cm) - Depth 0.1 -Total Square Cm 0.01 -Epithelialization Large 67-100% -Tunneling No -Undermining/Tunneling No -Circular Undermining No WC - Nurse 2 - General Ulcer CM Notes Start: 05/14/20 13:39 Freq: Status: Active Protocol: Activity Type Activity Date Activity User E-Sign Co-Sign Detail Recorded Client Recorded Date Recorded By Document 06/04/20 14:05 TONG [id number] 06/04/20 14:13 06/04/20 14:05 Wound Center Nurse 2 [Procedure/Treatment] #11- R ABDOMEN -Correct Patient No -Correct Side, Site, Position No -Correct Procedure No -Procedure Performed No -Wound/Ulcer Outcome Not Healed #10- L ABD FOLD -Time 14:12 -Correct Patient Yes -Correct Side, Site, Position Yes -Correct Procedure Yes -Procedure Performed Yes -Type of Procedure Debridement -Clinical Debridement Subcutaneous -Post Debridement Size (cm) - Length 0.6 -Post Debridement Size (cm) - Width 0.3 -Post Debridement Size (cm) - Depth 0.8 -Total Square (cm) 0.18 -Wound/Ulcer Outcome Not Healed -Ulcer Cleansing Rinsed/ Irrigated with Saline -Foul Odor after Cleansing No -Bioengineered Tissue No -Bleeding Controlled with Pressure -Offloading No -Treatment Response Procedure Tolerated Well #9 Mid Abdomen -Correct Patient No -Correct Side, Site, Position No -Correct Procedure No -Procedure Performed No -Post Debridement Size (cm) - Length 0 -Post Debridement Size (cm) - Width 0 -Post Debridement Size (cm) - Depth 0 -Total Square (cm) 0 -Wound/Ulcer Outcome Healed- Epithelialized [See Physician Procedure note for Specifics] Pain Scale: 0-10 Numeric [Pain] -Is Patient Pain Free? Yes Musculoskeletal: No Tenderness to Palpation of Joints or Extremities Neurological: Cranial nerves II-XII grossly intact Psych/Mental Status: Normal Affect, Appropriate Debridement Note Post-Debridement Measurements/Treatment WC - Nurse 2 - General Ulcer CM Notes Start: 05/14/20 13:39 Freq: Status: Active Protocol: Activity Type Activity Date Activity User E-Sign Co-Sign Detail Recorded Client Recorded Date Recorded By Document 05/14/20 17:21 PL [id number] 05/14/20 17:22 PL Document 06/04/20 14:05 [id number] 06/04/20 14:13 05/14/20 06/04/20 17:21 14:05 Wound Center Nurse 2 #11- R ABDOMEN -Correct Patient No -Correct Side, Site, Position No -Correct Procedure No -Procedure Performed No -Wound/Ulcer Outcome Not Healed #10- L ABD FOLD -Time 14:12 -Correct Patient Yes -Correct Side, Site, Position Yes -Correct Procedure Yes -Procedure Performed Yes -Type of Procedure Debridement -Clinical Debridement Subcutaneous -Post Debridement Size (cm) - Length 0.6 -Post Debridement Size (cm) - Width 0.3 -Post Debridement Size (cm) - Depth 0.8 -Total Square (cm) 0.18 -Wound/Ulcer Outcome Not Healed -Ulcer Cleansing Rinsed/ Irrigated with Saline -Foul Odor after Cleansing No -Bioengineered Tissue No -Bleeding Controlled with Pressure -Offloading No -Treatment Response Procedure Tolerated Well #9 Mid Abdomen -Time 13:55 -Correct Patient Yes No -Correct Side, Site, Position Yes No -Correct Procedure Yes No -Procedure Performed Yes No -Type of Procedure Debridement -Clinical Debridement Subcutaneous -Post Debridement Size (cm) - Length 0.5 0 -Post Debridement Size (cm) - Width 1.2 0 -Post Debridement Size (cm) - Depth 0.3 0 -Total Square (cm) 0.60 0 -Wound/Ulcer Outcome Not Healed Healed- Epithelialized -Ulcer Cleansing Rinsed/ Irrigated with Saline -Foul Odor after Cleansing No -Bleeding Controlled with Pressure -Treatment Response Procedure Tolerated Well Pain Scale: 0-10 Numeric Is Patient Pain Free? Yes Yes Wound debrided: lower abdomen skin fold ulcer Laterality: Left Type of Debridement: Excisional debridement Anesthesia Used: 5% Lidocaine Gel Depth: Down to and including healthy tissue, in the subcutaneous layer Percentage of wound debrided: 100 Instrument Used: 3mm curette Tissue Removed: Subcutaneous tissue and slough Severity: Fat Layer Exposed Amount of bleeding with debridement: Mild Bleeding Controlled with: Pressure Patient tolerated procedure well Assessment/Plan Assessment: 1. Nonhealing hidradenitis ulcer bilateral superior gluteal/perianal area with recent skin grafting and graft compromise. 2. Compromised skin graft. 3. Hidradenitis. 4. Diabetes. 5. Smoker. 6. Hidradenitis bilateral inguinal and medial upper thigh areas, stable. 7. Hidradenitis perineum, stable. Plan: Sacral ulcer remains healed. Encouraged him to massage the area to help soften the scarring. He also sustained recurrent abdominal wall abrasion ulceration mostl likely from friction from skin rubbing together. The medial opening has closed but he has a new opening on the left lower abdominal skin crease. He also has an abscess that has drained on the RUQ which is now soft. He has abscess on his left chin which has not drained yet. Wound Care - The lower mid abdomen ulcer is healed today. Left lower abdomen ulcer was cultured. Will apply aquacel - Ag to opened area. Warm moist compresses to left chin abscess/boil. Will start him on Levaquin due to the abscess on the face. Encouraged warm, moist compresses to the left chin. Wound culture of lower mid abdominal ulcer from 04/23/20 was positive for Staphylococcus aureus, Proteus mirabilis, and Streptococcus agalactiae (B). Stopped the Doxycycline and started him on Levaquin and Augmentin to cover the Strep B. His abscess to his right lateral chest wall has drained and is improved. Will continue to monitor the area. Follow up 3 weeks. Surgical wound culture was negative and he was treated with Levaquin and Augmentin from a preop culture on 11/28/19 that showed Klebsiella pneumoniae sp pneum, Enterococcus faecalis, MRSE, and Corynebacterium amycolatum and has finished them. Prealbumin from 01/03/20 was 21.9. Encourage nutritional supplementation with protein to help the healing process. HgA1C from 01/03/20 was 8.3. He has pelvic floor pain that he is scheduled to see a therapist in [place] for evaluation and treatment. He started therapy last week. Encouraged him to stop smoking as this could be deleterious to his wound healing. Will refer him to Dr. Junior Gonzalez, endocrinology to help him get better control of his blood sugars. He has an appointment at the end of the June. Follow up two weeks. Discussed with him possible further surgery in the abdominal wall. He is interested but wants to wait a little while because of the Coronavirus. When he decides on the surgery, will repeat the HgbA1c. It needs to be less than 8. 111xxx-113xx: [id number] Steff subq tissue 20 sq cm/<
== END 2020-06-08 23:59 ==
LOC: WC 13:00
PROVIDERS: Family Provider Internal Medicine; PCP Internal Medicine; Referring Provider Nurse Practitioner Family; Visit Provider Nurse Practitioner Family
DX: L98.492 Non-pressure chronic ulcer of skin of other sites with fat layer exposed (principal); E11.9 Type 2 diabetes mellitus without complications; L73.2 Hidradenitis suppurativa; F17.200 Nicotine dependence, unspecified, uncomplicated; T86.821 Skin graft (allograft) (autograft) failure; Y83.8 Other surgical procedures as the cause of abnormal reaction of the patient, or of later complication, without mention of misadventure at the time of the procedure
CPT/HCPCS: 11042

== ENCOUNTER → 2020-06-05 11:06 | Outpatient (CLI) | payer OTHER, SELFPAY ==
[2020-06-04 13:17] VITALS: BMI 33.6
== END ==
LOC: LABSPEC 11:07
PROVIDERS: PCP Internal Medicine; Referring Provider Nurse Practitioner Family; Visit Provider Nurse Practitioner Family
DX: L98.499 Non-pressure chronic ulcer of skin of other sites with unspecified severity (principal)
CPT/HCPCS: 87070; 87075; 87077; 87186; 87205

== ENCOUNTER 2020-07-09 11:15 | Outpatient (RCR) | payer OTHER, SELFPAY ==
[2020-06-18 13:21] VITALS: BP 121/76; PULSE 91; RESP 16; TEMP 36.9; BMI 33.6
--- NOTE | 2020-06-18 15:31 | PN.PCM_ITS ---
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: Chronic Code(s): L98.492 - Non-pressure chronic ulcer of skin of other sites with fat layer exposed (2) Abdominal panniculus Status: Chronic Code(s): E65 - Localized adiposity (3) Intertrigo Status: Chronic Code(s): L30.4 - Erythema intertrigo Comment: abdominal wall skin crease intertrigo (4) Diabetes Status: Chronic Code(s): E11.9 - Type 2 diabetes mellitus without complications (5) Smoker Status: Chronic Code(s): F17.200 - Nicotine dependence, unspecified, uncomplicated (6) Hidradenitis suppurativa Status: Chronic Code(s): L73.2 - Hidradenitis suppurativa Comment: abdominal wall skin crease bilateral inguinal/medial thighs Type of Wound Date of Service: 06/18/20 Chief Complaint: Nonhealing hidradenitis ulcer bilateral superior gluteal/perianal area with recent skin grafting and graft compromise and intermittent abrasion ulceration abdominal wall and recent hidradenitis flare up in perineal area. History of Wound: Surgery 01/02/20 - Surgical preparation bilateral superior gluteal/perianal area with excisional debridement nonhealing hidradenitis ulcer and STSG reconstruction from left posterior flank (4.5 cm2) and placement of AmnioFill placental connective tissue powder (250 mg). There was compromise on the skin graft that initially healed but developed a small re-ulceration. He also sustained recurrent abdominal wall abrasion ulceration most likely from friction from skin rubbing together. The medial opening has closed but he has a new opening on the left lower abdominal skin crease. He also has an abscess that has drained on the RUQ which is now soft and healed. He has abscess on his left chin which he had drained and is now healing. Wound Care - Left lower abdomen ulcer is aquacel - Ag to opened area. Wound culture from 04/23/20 was positive for Staphylococcus aureus, Proteus mirabilis, and Streptococcus agalactiae (B). Stopped the Doxycycline and started him on Levaquin and Augmentin to cover the Strep B. Operative culture from 01/02/20 was negative for bacterial growth. He was treated perioperatively with Levaquin and Augmentin from a preop wound culture on 11/28/2019 that showed Klebsiella pneumoniae sp pneum, Enterococcus faecalis, MRSE, and Corynebacterium amycolatum and has finished them. Prealbumin from 01/03/20 was 21.9. Encourage nutritional supplementation with protein to help the healing process. HgbA1c from 01/03/20 was 8.3. He has had intermittent flare ups in his bilateral inguinal and upper medial thigh areas that responded to Doxycycline. He has complained about pelvic floor pain and was referred for pelvic floor therapy in [place]. He started therapy a few weeks ago. Today he denies fever. His appetite is better. Progress of Wound: Lower mid abdominal ulcer is starting to have undermining surrounding the opening. - Physical Exam Vital Signs Temp Pulse Resp BP 98.4 F 91 16 121/76 H 06/18/20 13:21 06/18/20 13:21 06/18/20 13:21 06/18/20 13:21 General: Alert, Oriented x3, Cooperative HEENT: Atraumatic Oral: Moist Mucosa Lungs: Normal air movement Cardiovascular: Regular rate Abdomen: Soft Extremities: Capillary Refill Less than 3 Seconds Skin: Ulcer/ Wound - Lower mid abdomen ulcer in the scar tissue of the scarring. The ulcer is starting to have undermining surrounding the opening. Wound Measurements and Assessment WC - Nurse 1 - General Ulcer Measurement Start: 06/18/20 13:19 Freq: Status: Active Protocol: Activity Type Activity Date Activity User E-Sign Co-Sign Detail Recorded Client Recorded Date Recorded By Document 06/18/20 13:21 TONG [id number] 06/18/20 13:23 TONG 06/18/20 13:21 Wound Center Nurse 1 [Ulcer Assessment] #11- R ABDOMEN -Combined with other wound No -Current Size (cm) - Length 0.7 -Current Size (cm) - Width 0.7 -Current Size (cm) - Depth 1.5 -Total Square Cm 0.49 -Photo Taken No -Epithelialization Small 1-33% -Tunneling No -Undermining/Tunneling No -Circular Undermining Yes -Exudate Amt Medium -Exudate Type Serosanguineous -Wound Margin Flat & Intact -Granulation Amt Large (67-100%) -Granulation Quality Red -Slough/Fibrin Yes -Necrosis Amt Small (1-33%) -Necrotic Tissue Type Adherent Slough -Structure Exposed N/A -Texture (Kassandra-wound Skin Appearance) Assessed, Scarring -Moisture (Kassandra-wound Skin Appearance Assessed,Dry/ ) Scaly -Color (Kassandra-wound Skin Appearance) Assessed -Temperature (Kassandra-wound Skin No Abnormality Appearance) (Pt Warm) -Tenderness on Palpation (Kassandra-wound No Skin Appearance) -Ulcer Cleansing Rinsed/ Irrigated with Saline -Foul Odor after Cleansing No -Anesthetic Used 4% Lidocaine Solution [Edema Assessment] -Lower Limb Edema Present NA - Nurse 2 - General Ulcer CM Notes Start: 06/18/20 13:19 Freq: Status: Active Protocol: Activity Type Activity Date Activity User E-Sign Co-Sign Detail Recorded Client Recorded Date Recorded By Document 06/18/20 13:56 [id number] 06/18/20 13:57 06/18/20 13:56 Wound Center Nurse 2 [Procedure/Treatment] #11- R ABDOMEN -Time 13:56 -Correct Patient Yes -Correct Side, Site, Position Yes -Correct Procedure Yes -Procedure Performed Yes -Type of Procedure Debridement -Clinical Debridement Subcutaneous -Post Debridement Size (cm) - Length 1.0 -Post Debridement Size (cm) - Width 0.7 -Post Debridement Size (cm) - Depth 0.6 -Total Square (cm) 0.70 -Wound/Ulcer Outcome Not Healed -Ulcer Cleansing Rinsed/ Irrigated with Saline -Foul Odor after Cleansing No -Bioengineered Tissue No -Bleeding Controlled with Pressure -Other undermining 1. 5cm -Offloading No -Treatment Response Procedure Tolerated Well [See Physician Procedure note for Specifics] Pain Scale: 0-10 Numeric [Pain] -Is Patient Pain Free? Yes Musculoskeletal: Tenderness Neurological: Cranial nerves II-XII grossly intact Psych/Mental Status: Normal Affect, Appropriate Debridement Note Post-Debridement Measurements/Treatment - Nurse 2 - General Ulcer CM Notes Start: 06/18/20 13:19 Freq: Status: Active Protocol: Activity Type Activity Date Activity User E-Sign Co-Sign Detail Recorded Client Recorded Date Recorded By Document 06/18/20 13:56 [id number] 06/18/20 13:57 06/18/20 13:56 Wound Center Nurse 2 #11- R ABDOMEN -Time 13:56 -Correct Patient Yes -Correct Side, Site, Position Yes -Correct Procedure Yes -Procedure Performed Yes -Type of Procedure Debridement -Clinical Debridement Subcutaneous -Post Debridement Size (cm) - Length 1.0 -Post Debridement Size (cm) - Width 0.7 -Post Debridement Size (cm) - Depth 0.6 -Total Square (cm) 0.70 -Wound/Ulcer Outcome Not Healed -Ulcer Cleansing Rinsed/ Irrigated with Saline -Foul Odor after Cleansing No -Bioengineered Tissue No -Bleeding Controlled with Pressure -Other undermining 1. 5cm -Offloading No -Treatment Response Procedure Tolerated Well Pain Scale: 0-10 Numeric Is Patient Pain Free? Yes Wound debrided: lower mid abdominal ulcer Type of Debridement: Excisional debridement Anesthesia Used: 5% Lidocaine Gel Depth: Down to and including healthy tissue, in the subcutaneous layer Percentage of wound debrided: 100 Instrument Used: 3mm curette Tissue Removed: Subcutaneous tissue and slough Severity: Fat Layer Exposed Amount of bleeding with debridement: Mild Bleeding Controlled with: Pressure Patient tolerated procedure well Assessment/Plan Assessment: 1. Nonhealing hidradenitis ulcer bilateral superior gluteal/perianal area with recent skin grafting and graft compromise. 2. Compromised skin graft. 3. Hidradenitis. 4. Diabetes. 5. Smoker. 6. Hidradenitis bilateral inguinal and medial upper thigh areas, stable. 7. Hidradenitis perineum, stable. Plan: Sacral ulcer remains healed. Encouraged him to massage the area to help soften the scarring. Wound Care - The lower mid abdomen ulcer will apply moistened aquacel - Ag to opened area. Wound culture of lower abdominal ulcer on 06/04/20 was postive for Staphylococcus epidermidis. He was started on Levaquin before the results were back but it is intermediate coverage, so he was switched to Doxycycline. Wound culture of lower mid abdominal ulcer from 04/23/20 was positive for Staphylococcus aureus, Proteus mirabilis, and Streptococcus agalactiae (B). Stopped the Doxycycline and started him on Levaquin and Augmentin to cover the Strep B. Surgical wound culture was negative and he was treated with Levaquin and Augmentin from a preop culture on 11/28/19 that showed Klebsiella pneumoniae sp pneum, Enterococcus faecalis, MRSE, and Corynebacterium amycolatum and has finished them. Prealbumin from 01/03/20 was 21.9. Encourage nutritional supplementation with protein to help the healing process. HgA1C from 01/03/20 was 8.3. He has pelvic floor pain that he is scheduled to see a therapist in [place] for evaluation and treatment. He started therapy last week. Encouraged him to stop smoking as this could be deleterious to his wound healing. Will refer him to Dr. Junior Gonzalez, endocrinology to help him get better control of his blood sugars. He has an appointment at the end of the June. Follow up one week to discuss possible further surgery with Dr. Luis. Discussed with him possible further surgery in the abdominal wall. He is interested but wants to wait a little while because of the Coronavirus. When he decides on the surgery, will repeat the HgbA1c. It needs to be less than 8. 111xxx-113xx: [id number] Steff subq tissue 20 sq cm/<
[2020-06-25 14:36] VITALS: BP 115/76; PULSE 82; RESP 18; TEMP 36.6; BMI 33.6
--- NOTE | 2020-06-25 17:00 | PN.PCM_ITS ---
Type of Wound Date of Service: 06/25/20 Chief Complaint: Nonhealing diabetic hidradenitis ulcer abdominal wall. History of Wound: Patient presents with persistent hidradenitis in his abdominal wall skin crease. He has an abdominal panniculus and associated intertrigo. He had excision of necrotizing soft tissue hidradenitis infection with abdominal panniculectomy in 07/28. The resultant wound healed and then intermittently breaks down and ulcerates. He has been applying Silver dressing changes daily. Wound culture from 04/23/20 was positive for Staphylococcus aureus, Proteus mirabilis, and Streptococcus agalactiae (B). He was placed on Levaquin and Augmentin and has finished them. He had another wound culture done on 06/04/20 which was positive for MRSE. He was placed on Doxycycline. Prealbumin from 01/03/20 was 21.9. Encourage nutritional supplementation with protein to help the healing process. HgbA1c from 01/03/20 was 8.3. Today he denies fever. His appetite is good. Progress of Wound: Slowly improving. - Physical Exam Vital Signs Temp Pulse Resp BP 97.8 F 82 18 115/76 06/25/20 14:36 06/25/20 14:36 06/25/20 14:36 06/25/20 14:36 Wound Measurements and Assessment WC - Nurse 1 - General Ulcer Measurement Start: 06/18/20 13:19 Freq: Status: Active Protocol: Activity Type Activity Date Activity User E-Sign Co-Sign Detail Recorded Client Recorded Date Recorded By Document 06/25/20 14:36 PL [id number] 06/25/20 14:44 PL 06/25/20 14:36 Wound Center Nurse 1 [Ulcer Assessment] #11- R ABDOMEN -Combined with other wound No -Current Size (cm) - Length 0.7 -Current Size (cm) - Width 0.7 -Current Size (cm) - Depth 0.8 -Total Square Cm 0.49 -Tunneling No -Undermining/Tunneling Yes -Undermining/Tunneling Starts (O' 12 clock) -Undermining/Tunneling Ends (O'clock) 12 -Maximum Distance (cm) 1.2 -Circular Undermining Yes -Exudate Amt Medium -Exudate Type Serosanguineous -Granulation Amt Large (67-100%) -Granulation Quality [place] -Slough/Fibrin Yes -Necrosis Amt Small (1-33%) -Necrotic Tissue Type Adherent Slough -Texture (Kassandra-wound Skin Appearance) No Abnormality -Moisture (Kassandra-wound Skin Appearance No Abnormality ) -Color (Kassandra-wound Skin Appearance) No Abnormality -Temperature (Kassandra-wound Skin No Abnormality Appearance) (Pt Warm) -Tenderness on Palpation (Kassandra-wound No Skin Appearance) -Ulcer Cleansing Rinsed/ Irrigated with Saline -Foul Odor after Cleansing No -Anesthetic Used 4% Lidocaine Solution - Nurse 2 - General Ulcer CM Notes Start: 06/25/20 10:39 Freq: Status: Active Protocol: Activity Type Activity Date Activity User E-Sign Co-Sign Detail Recorded Client Recorded Date Recorded By Document 06/25/20 15:25 TONG [id number] 06/25/20 15:26 06/25/20 15:25 Wound Center Nurse 2 [Procedure/Treatment] -Time 15:25 -Correct Patient Yes -Correct Side, Site, Position Yes -Correct Procedure Yes -Procedure Performed Yes -Type of Procedure Debridement -Clinical Debridement Subcutaneous -Tissue Removed Subcutaneous -Post Debridement (cm) - Length 0.7 -Post Debridement (cm) - Width 0.7 -Post Debridement (cm) - Depth 0.8 -Total Square (Post) (cm) 0.49 -Area of Debridement (cm) - Length 0.7 -Area of Debridement (cm) - Width 0.7 -Total Square (Area) (cm) 0.49 -Tunneling Yes -Tunneling Position (O'clock) 3 -Tunneling Distance (cm) 1.9 -Undermining/Tunneling No -Circular Undermining No -Wound/Ulcer Outcome Not Healed -Ulcer Cleansing Rinsed/ Irrigated with Saline -Foul Odor after Cleansing No -Bioengineered Tissue No -Bleeding Controlled with Pressure -Offloading No -Treatment Response Procedure Tolerated Well -Debridement - Subq, 1st 20sq cm Yes [See Physician Procedure note for Specifics] Pain Scale: 0-10 Numeric [Pain] -Is Patient Pain Free? Yes Debridement Note Post-Debridement Measurements/Treatment - Nurse 2 - General Ulcer CM Notes Start: 06/25/20 10:39 Freq: Status: Active Protocol: Activity Type Activity Date Activity User E-Sign Co-Sign Detail Recorded Client Recorded Date Recorded By Document 06/25/20 15:25 [id number] 06/25/20 15:26 06/25/20 15:25 Wound Center Nurse 2 #11- R ABDOMEN -Time 15:25 -Correct Patient Yes -Correct Side, Site, Position Yes -Correct Procedure Yes -Procedure Performed Yes -Type of Procedure Debridement -Clinical Debridement Subcutaneous -Tissue Removed Subcutaneous -Post Debridement (cm) - Length 0.7 -Post Debridement (cm) - Width 0.7 -Post Debridement (cm) - Depth 0.8 -Total Square (Post) (cm) 0.49 -Area of Debridement (cm) - Length 0.7 -Area of Debridement (cm) - Width 0.7 -Total Square (Area) (cm) 0.49 -Tunneling Yes -Tunneling Position (O'clock) 3 -Tunneling Distance (cm) 1.9 -Undermining/Tunneling No -Circular Undermining No -Wound/Ulcer Outcome Not Healed -Ulcer Cleansing Rinsed/ Irrigated with Saline -Foul Odor after Cleansing No -Bioengineered Tissue No -Bleeding Controlled with Pressure -Offloading No -Treatment Response Procedure Tolerated Well -Debridement - Subq, 1st 20sq cm Yes Pain Scale: 0-10 Numeric Is Patient Pain Free? Yes Wound debrided: #11 Abdominal wall. Laterality: Not Applicable Wound Grade/Stage: 2. Type of Debridement: Excisional debridement Anesthesia Used: 4% Lidocaine Solution Depth: Down to and including healthy tissue, in the subcutaneous layer Percentage of wound debrided: 100 Instrument Used: 3mm curette Tissue Removed: subcutaneous tissue. Severity: Fat Layer Exposed Amount of bleeding with debridement: Mild Bleeding Controlled with: Pressure Patient tolerated procedure well Assessment/Plan Assessment: 1. Nonhealing diabetic hidradenitis ulce abdominal wall. 2. Abdom inal wall skin crease intertrigo. 3. Hidradenitis. 4. Diabetes. 5. Abdominal panniculus. 6. Smoker. Plan: Continue Silver dressing changes daily to the abdominal wall. Recommend keeping the area shaved to minimize healing issues. Latest wound culture 06/04/20 showed MRSE and is currently on Doxycycline. Recommend further surgery with surgical preparation abdominal wall with excisional debridement nonhealing hidradenitis ulcer with complex secondary wound closure. Patient wants to think about it and let me know. Tentative timing for the surgery is in 4-6 weeks. Will obtain a preop culture before the surgery to help direct antibiotic therapy perioperatively. Will need a HgbA1c prior to wound closure. His last one in 12/29 was 8.3. It needs to be less than 8. Followup 2 weeks. Encouraged patient to stop smoking as it may have deleterious effects on wound healing. Sacral ulcer remains healed. Encouraged him to massage the area to help soften the scarring. Wound Care - The lower mid abdomen ulcer will apply moistened aquacel - Ag to opened area. Wound culture of lower abdominal ulcer on 06/04/20 was postive for Staphylococcus epidermidis. He was started on Levaquin before the results were back but it is intermediate coverage, so he was switched to Doxycycline. Wound culture of lower mid abdominal ulcer from 04/23/20 was positive for Staphylococcus aureus, Proteus mirabilis, and Streptococcus agalactiae (B). Stopped the Doxycycline and started him on Levaquin and Augmentin to cover the Strep B. Surgical wound culture was negative and he was treated with Levaquin and Augmentin from a preop culture on 11/28/19 that showed Klebsiella pneumoniae sp pneum, Enterococcus faecalis, MRSE, and Corynebacterium amycolatum and has finished them. Prealbumin from 01/03/20 was 21.9. Encourage nutritional supplementation with protein to help the healing process. HgA1C from 01/03/20 was 8.3. He has pelvic floor pain that he is scheduled to see a therapist in [place] for evaluation and treatment. He started therapy last week. Encouraged him to stop smoking as this could be deleterious to his wound healing. Will refer him to Dr. Junior Gonzalez, endocrinology to help him get better control of his blood sugars. He has an appointment at the end of the June. Follow up one week to discuss possible further surgery with Dr. Luis. Discussed with him possible further surgery in the abdominal wall. He is interested but wants to wait a little while because of the Coronavirus. When he decides on the surgery, will repeat the HgbA1c. It needs to be less than 8. [id number]: [id number] Steff subq tissue 20 sq cm/< - ICD-10 - L98.492, L73.2, E11.9, E65, L30.4, F17.200
[2020-07-09 11:31] VITALS: BP 123/71; PULSE 81; RESP 16; TEMP 36.8; BMI 33.6
--- NOTE | 2020-07-09 15:32 | PN.PCM_ITS ---
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: Chronic Code(s): L98.492 - Non-pressure chronic ulcer of skin of other sites with fat layer exposed (2) Abdominal panniculus Status: Chronic Code(s): E65 - Localized adiposity (3) Intertrigo Status: Chronic Code(s): L30.4 - Erythema intertrigo Comment: abdominal wall skin crease intertrigo (4) Diabetes Status: Chronic Code(s): E11.9 - Type 2 diabetes mellitus without complications (5) Smoker Status: Chronic Code(s): F17.200 - Nicotine dependence, unspecified, uncomplicated (6) Hidradenitis suppurativa Status: Chronic Code(s): L73.2 - Hidradenitis suppurativa Comment: abdominal wall skin crease bilateral inguinal/medial thighs Type of Wound Date of Service: 07/09/20 Chief Complaint: Nonhealing diabetic hidradenitis ulcer abdominal wall. History of Wound: Patient presents with persistent hidradenitis in his abdominal wall skin crease. He has an abdominal panniculus and associated intertrigo. He had excision of necrotizing soft tissue hidradenitis infection with abdominal panniculectomy in 07/28. The resultant wound healed and then intermittently breaks down and ulcerates. He has been applying Silver dressing changes daily. He has been having issues packing the Silver dressing into the opened ulcer, will start 1/4 Iodoform gauze daily to the area. Wound culture from 04/23/20 was positive for Staphylococcus aureus, Proteus mirabilis, and Streptococcus agalactiae (B). He was placed on Levaquin and Augmentin and has finished them. He had another wound culture done on 06/04/20 which was positive for MRSE. He was placed on Doxycycline. Prealbumin from 01/03/20 was 21.9. Encourage nutritional supplementation with protein to help the healing process. HgbA1c from 01/03/20 was 8.3. He states that he went to see Dr. Cordell Gonzalez, [employer], and his HgA1c was over 10 last week. She is making adjustments to his medications. Today he denies fever. His appetite is good. Progress of Wound: Slowly improving. - Physical Exam Vital Signs Temp Pulse Resp BP 98.3 F 81 16 123/71 H 07/09/20 11:31 07/09/20 11:31 07/09/20 11:31 07/09/20 11:31 General: Alert, Oriented x3, Cooperative HEENT: Atraumatic Oral: Moist Mucosa Lungs: Normal air movement Cardiovascular: Regular rate Abdomen: Soft Extremities: Capillary Refill Less than 3 Seconds Skin: Ulcer/ Wound - Lower abdominal, medial incisional ulcer that has undermining of 1 cm around the opening. Wound Measurements and Assessment WC - Nurse 1 - General Ulcer Measurement Start: 06/18/20 13:19 Freq: Status: Active Protocol: Activity Type Activity Date Activity User E-Sign Co-Sign Detail Recorded Client Recorded Date Recorded By Document 07/09/20 11:31 [facility] [id number] 07/09/20 11:33 [facility] 07/09/20 11:31 Wound Center Nurse 1 [Ulcer Assessment] #11- R ABDOMEN -Combined with other wound No -Current Size (cm) - Length 0.4 -Current Size (cm) - Width 0.4 -Current Size (cm) - Depth 1 -Total Square Cm 0.16 -Photo Taken No -Epithelialization None Present -Tunneling No -Undermining/Tunneling No -Circular Undermining No -Exudate Amt Small -Exudate Type Serosanguineous -Wound Margin Distinct, Outline Attached -Granulation Amt Large (67-100%) -Granulation Quality Red -Slough/Fibrin No -Necrosis Amt None Present (0 %) -Texture (Kassandra-wound Skin Appearance) Assessed, Scarring -Moisture (Kassandra-wound Skin Appearance Assessed ) -Color (Kassandra-wound Skin Appearance) Assessed -Temperature (Kassandra-wound Skin No Abnormality Appearance) (Pt Warm) -Tenderness on Palpation (Kassandra-wound No Skin Appearance) -Ulcer Cleansing Rinsed/ Irrigated with Saline -Foul Odor after Cleansing No -Anesthetic Used 4% Lidocaine Solution - Nurse 2 - General Ulcer CM Notes Start: 06/25/20 10:39 Freq: Status: Active Protocol: Activity Type Activity Date Activity User E-Sign Co-Sign Detail Recorded Client Recorded Date Recorded By Document 07/09/20 11:52 [id number] 07/09/20 11:55 07/09/20 11:52 Wound Center Nurse 2 [Procedure/Treatment] -Time 11:52 -Correct Patient Yes -Correct Side, Site, Position Yes -Correct Procedure Yes -Procedure Performed Yes -Type of Procedure Debridement -Clinical Debridement Subcutaneous -Tissue Removed Subcutaneous -Post Debridement (cm) - Length 0.7 -Post Debridement (cm) - Width 0.5 -Post Debridement (cm) - Depth 0.5 -Total Square (Post) (cm) 0.35 -Area of Debridement (cm) - Length 0.7 -Area of Debridement (cm) - Width 0.5 -Total Square (Area) (cm) 0.35 -Tunneling No -Undermining/Tunneling No -Circular Undermining Yes -Wound/Ulcer Outcome Not Healed -Ulcer Cleansing Rinsed/ Irrigated with Saline -Foul Odor after Cleansing No -Bioengineered Tissue No -Bleeding Controlled with Pressure -Offloading No -Treatment Response Procedure Tolerated Well -Debridement - Subq, 1st 20sq cm Yes [See Physician Procedure note for Specifics] Pain Scale: 0-10 Numeric [Pain] -Is Patient Pain Free? Yes Musculoskeletal: No Tenderness to Palpation of Joints or Extremities Neurological: Cranial nerves II-XII grossly intact Psych/Mental Status: Normal Affect, Appropriate Debridement Note Post-Debridement Measurements/Treatment - Nurse 2 - General Ulcer CM Notes Start: 06/25/20 10:39 Freq: Status: Active Protocol: Activity Type Activity Date Activity User E-Sign Co-Sign Detail Recorded Client Recorded Date Recorded By Document 06/25/20 15:25 [id number] 06/25/20 15:26 Document 07/09/20 11:52 [id number] 07/09/20 11:55 06/25/20 07/09/20 15:25 11:52 Wound Center Nurse 2 #11- R ABDOMEN -Time 15:25 11:52 -Correct Patient Yes Yes -Correct Side, Site, Position Yes Yes -Correct Procedure Yes Yes -Procedure Performed Yes Yes -Type of Procedure Debridement Debridement -Clinical Debridement Subcutaneous Subcutaneous -Tissue Removed Subcutaneous Subcutaneous -Post Debridement (cm) - Length 0.7 0.7 -Post Debridement (cm) - Width 0.7 0.5 -Post Debridement (cm) - Depth 0.8 0.5 -Total Square (Post) (cm) 0.49 0.35 -Area of Debridement (cm) - Length 0.7 0.7 -Area of Debridement (cm) - Width 0.7 0.5 -Total Square (Area) (cm) 0.49 0.35 -Tunneling Yes No -Tunneling Position (O'clock) 3 -Tunneling Distance (cm) 1.9 -Undermining/Tunneling No No -Circular Undermining No Yes -Wound/Ulcer Outcome Not Healed Not Healed -Ulcer Cleansing Rinsed/ Rinsed/ Irrigated with Irrigated with Saline Saline -Foul Odor after Cleansing No No -Bioengineered Tissue No No -Bleeding Controlled with Pressure Pressure -Offloading No No -Treatment Response Procedure Procedure Tolerated Well Tolerated Well -Debridement - Subq, 1st 20sq cm Yes Yes Pain Scale: 0-10 Numeric Is Patient Pain Free? Yes Yes Wound debrided: Lower medial abdominal ulcer on healed scarring Type of Debridement: Excisional debridement Anesthesia Used: 5% Lidocaine Gel Depth: Down to and including healthy tissue, in the subcutaneous layer Percentage of wound debrided: 100 Instrument Used: 3mm curette Tissue Removed: Subcutaneous tissue and slough Severity: Fat Layer Exposed Amount of bleeding with debridement: Mild Bleeding Controlled with: Pressure Patient tolerated procedure well Assessment/Plan Assessment: 1. Nonhealing diabetic hidradenitis ulce abdominal wall. 2. Abdominal wall skin crease intertrigo. 3. Hidradenitis. 4. Diabetes. 5. Abdominal panniculus. 6. Smoker. Plan: Wound care - He has been having issues packing the Silver dressing into the opened ulcer, will start 1/4 Iodoform gauze daily to the area. Will re- evaluate dresssing in 2 weeks. Recommend keeping the area shaved to minimize healing issues. He has not done this because he states that shaving aggravates his hidradenitis. Latest wound culture 06/04/20 showed HUBER and is currently on Doxycycline. Recommend further surgery with surgical preparation abdominal wall with excisional debridement nonhealing hidradenitis ulcer with complex secondary wound closure. Patient wants to think about it and let me know. Tentative timing for the surgery is in 4-6 weeks. Will obtain a preop culture before the surgery to help direct antibiotic therapy perioperatively. Will need a HgbA1c prior to wound closure. His last one in 12/29 was 8.3. It needs to be less than 8. He saw Dr. Junior Gonzalez, endocrinology last week and she has changed his medications around. He states that his HgA1c is over 10. Sacral ulcer re igor healed. Encouraged him to massage the area to help soften the scarring. Followup 2 weeks. Encouraged patient to stop smoking as it may have deleterious effects on wound healing. [id number]: [id number] Steff subq tissue 20 sq cm/<
== END 2020-07-09 23:59 ==
LOC: WC 11:15
PROVIDERS: PCP Internal Medicine; Visit Provider Nurse Practitioner Family
DX: L98.492 Non-pressure chronic ulcer of skin of other sites with fat layer exposed (principal); L73.2 Hidradenitis suppurativa; E65 Localized adiposity; L30.4 Erythema intertrigo; E11.9 Type 2 diabetes mellitus without complications; F17.200 Nicotine dependence, unspecified, uncomplicated; L02.01 Cutaneous abscess of face
CPT/HCPCS: 11042; 11045

== ENCOUNTER 2020-07-30 11:33 | Outpatient (RCR) | payer OTHER, SELFPAY ==
[2020-06-09 00:23] VITALS: O2SAT 97
[2020-07-10 00:48] VITALS: BP 123/71; PULSE 81; RESP 16; TEMP 36.8
[2020-07-30 11:37] VITALS: BP 146/91; PULSE 84; RESP 16; TEMP 36.9; BMI 33.3
--- NOTE | 2020-07-30 15:29 | PCM.WC.PN ---
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: Chronic Current Visit: Yes Code(s): L98.492 - Non-pressure chronic ulcer of skin of other sites with fat layer exposed (2) Diabetes Status: Chronic Current Visit: Yes Code(s): E11.9 - Type 2 diabetes mellitus without complications (3) Hidradenitis suppurativa Status: Chronic Current Visit: Yes Code(s): L73.2 - Hidradenitis suppurativa Comment: abdominal wall skin crease bilateral inguinal/medial thighs (4) Abdominal panniculus Status: Chronic Current Visit: No Code(s): E65 - Localized adiposity (5) Intertrigo Status: Chronic Current Visit: No Code(s): L30.4 - Erythema intertrigo Comment: abdominal wall skin crease intertrigo (6) Smoker Status: Chronic Current Visit: Yes Code(s): F17.200 - Nicotine dependence, unspecified, uncomplicated Type of Wound Date of Service: 07/30/20 Chief Complaint: Nonhealing diabetic hidradenitis ulcer abdominal wall. History of Wound: Patient presents with persistent hidradenitis in his abdominal wall skin crease. He has an abdominal panniculus and associated intertrigo. He had excision of necrotizing soft tissue hidradenitis infection with abdominal panniculectomy in 07/28. The resultant wound healed and then intermittently breaks down and ulcerates. He initially was applying Silver dressing changes daily, but began having issues packing the Silver dressing into the opened ulcer; he was switched to 1/4 Iodoform gauze daily to the area. Wound culture from 04/23/20 was positive for Staphylococcus aureus, Proteus mirabilis, and Streptococcus agalactiae (B). He was placed on Levaquin and Augmentin and has finished them. He had another wound culture done on 06/04/20 which was positive for MRSE. He was placed on Doxycycline. Prealbumin from 01/03/20 was 21.9. Encourage nutritional supplementation with protein to help the healing process. HgbA1c from 01/03/20 was 8.3. He states that he went to see Dr. Cordell Gonzalez, [employer] Supervisor, and his HgA1c was over 10 last week. She is making adjustments to his medications. Today he denies fever. His appetite is good. Progress of Wound: Slowly improving. The patient denies any fever, chills, nausea, vomiting, or diarrhea. Denies any signs of infection, including increasing pain, redness, swelling, or drainage from affected area. - Physical Exam Vital Signs Temp Pulse Resp BP 98.4 F 84 16 146/91 H 07/30/20 11:37 07/30/20 11:37 07/30/20 11:37 07/30/20 11:37 General: Alert, Oriented x3, Cooperative, No apparent distress HEENT: Atraumatic, Normocephalic Oral: Moist Mucosa Lungs: Normal air movement Cardiovascular: Regular rate Abdomen: Soft Extremities: No clubbing, No cyanosis, Capillary Refill Less than 3 Seconds Skin: Ulcer/ Wound - Lower abdominal ulcer with subcutaneous layer exposed. No kassandra-ulcer erythema, swelling, tenderness, or warmth. No purulent or malodorous drainage. Wound Measurements and Assessment WC - Nurse 1 - General Ulcer Measurement Start: 07/30/20 11:37 Freq: Status: Active Protocol: Activity Type Activity Date Activity User E-Sign Co-Sign Detail Recorded Client Recorded Date Recorded By Document 07/30/20 11:37 [facility] [id number] 07/30/20 11:41 [facility] 07/30/20 11:37 Wound Center Nurse 1 [Ulcer Assessment] #11- R ABDOMEN -Combined with other wound No -Current Size (cm) - Length 0.3 -Current Size (cm) - Width 0.2 -Current Size (cm) - Depth 0.2 -Total Square Cm 0.06 -Photo Taken No -Epithelialization Small 1-33% -Tunneling No -Undermining/Tunneling No -Circular Undermining No -Exudate Amt None Present -Wound Margin Distinct, Outline Attached -Granulation Amt Large (67-100%) -Granulation Quality Red -Slough/Fibrin No -Necrosis Amt None Present (0 %) -Texture (Kassandra-wound Skin Appearance) Assessed, Scarring -Moisture (Kassandra-wound Skin Appearance Assessed,Dry/ ) Scaly -Color (Kassandra-wound Skin Appearance) Assessed -Temperature (Kassandra-wound Skin No Abnormality Appearance) (Pt Warm) -Tenderness on Palpation (Kassandra-wound No Skin Appearance) -Ulcer Cleansing Rinsed/ Irrigated with Saline -Foul Odor after Cleansing No -Anesthetic Used 5% Lidocaine Gel WC - Nurse 2 - General Ulcer CM Notes Start: 07/30/20 11:37 Freq: Status: Active Protocol: Activity Type Activity Date Activity User E-Sign Co-Sign Detail Recorded Client Recorded Date Recorded By Document 07/30/20 11:57 [id number] 07/30/20 12:00 07/30/20 11:57 Wound Center Nurse 2 [Procedure/Treatment] -Time 11:57 -Correct Patient Yes -Correct Side, Site, Position Yes -Correct Procedure Yes -Procedure Performed Yes -Type of Procedure Debridement -Clinical Debridement Subcutaneous -Tissue Removed Subcutaneous -Post Debridement (cm) - Length 0.4 -Post Debridement (cm) - Width 0.4 -Post Debridement (cm) - Depth 0.5 -Total Square (Post) (cm) 0.16 -Area of Debridement (cm) - Length 0.4 -Area of Debridement (cm) - Width 0.4 -Total Square (Area) (cm) 0.16 -Tunneling No -Undermining/Tunneling No -Circular Undermining No -Wound/Ulcer Outcome Not Healed -Ulcer Cleansing Rinsed/ Irrigated with Saline -Foul Odor after Cleansing No -Bioengineered Tissue No -Bleeding Controlled with Pressure -Offloading No -Treatment Response Procedure Tolerated Well -Debridement - Subq, 1st 20sq cm Yes [See Physician Procedure note for Specifics] Pain Scale: 0-10 Numeric [Pain] -Is Patient Pain Free? Yes Musculoskeletal: No Muscle Wasting Psych/Mental Status: Normal Affect, Appropriate Debridement Note Post-Debridement Measurements/Treatment WC - Nurse 2 - General Ulcer CM Notes Start: 07/30/20 11:37 Freq: Status: Active Protocol: Activity Type Activity Date Activity User E-Sign Co-Sign Detail Recorded Client Recorded Date Recorded By Document 07/30/20 11:57 [id number] 07/30/20 12:00 07/30/20 11:57 Wound Center Nurse 2 #11- R ABDOMEN -Time 11:57 -Correct Patient Yes -Correct Side, Site, Position Yes -Correct Procedure Yes -Procedure Performed Yes -Type of Procedure Debridement -Clinical Debridement Subcutaneous -Tissue Removed Subcutaneous -Post Debridement (cm) - Length 0.4 -Post Debridement (cm) - Width 0.4 -Post Debridement (cm) - Depth 0.5 -Total Square (Post) (cm) 0.16 -Area of Debridement (cm) - Length 0.4 -Area of Debridement (cm) - Width 0.4 -Total Square (Area) (cm) 0.16 -Tunneling No -Undermining/Tunneling No -Circular Undermining No -Wound/Ulcer Outcome Not Healed -Ulcer Cleansing Rinsed/ Irrigated with Saline -Foul Odor after Cleansing No -Bioengineered Tissue No -Bleeding Controlled with Pressure -Offloading No -Treatment Response Procedure Tolerated Well -Debridement - Subq, 1st 20sq cm Yes Pain Scale: 0-10 Numeric Is Patient Pain Free? Yes Wound debrided: Lower medial abdominal ulcer Type of Debridement: Excisional debridement Anesthesia Used: 5% Lidocaine Gel Depth: in the subcutaneous layer Percentage of wound debrided: 100 Instrument Used: - - 1 mm curette Tissue Removed: Slough and devitalized tissue Severity: Fat Layer Exposed Amount of bleeding with debridement: Mild Bleeding Controlled with: Pressure Patient tolerated procedure well Assessment/Plan Active Problems (Last Reviewed 07/05/20 @ 11:14 by Haley Marti) Skin ulcer of abdominal wall with fat layer exposed (Chronic) Diabetes (Chronic) Smoker (Chronic) Hidradenitis suppurativa (Chronic) abdominal wall skin crease bilateral inguinal/medial thighs Assessment: 1. Nonhealing diabetic hidradenitis ulce abdominal wall. 2. Abdominal wall skin crease intertrigo. 3. Hidradenitis. 4. Diabetes. 5. Abdominal panniculus. 6. Smoker. Plan: Wound care -continue 1/4 Iodoform gauze daily to the area. Will re-evaluate dressing in 2 weeks. He was previously recommended that he keep the area shaved to minimize healing issues. He has not done this because he states that shaving aggravates his hidradenitis. Latest wound culture 06/04/20 showed HUBER and is currently on Doxycycline. His last A1c in 12/29 was 8.3. It needs to be less than 8 surgical consideration. Has been seeing Dr. Gonzalez (endocrine) and she is changing his medications around. He states that his HgA1c is over 10. Follow-up in 2 weeks for reevaluation. Follow-up sooner if new or concerning symptoms arise. Encouraged patient to stop smoking as it may have deleterious effects on wound healing. [id number]: [id number] Steff subq tissue 20 sq cm/<
== END 2020-08-08 23:59 ==
LOC: WC 11:33
PROVIDERS: PCP Internal Medicine; Visit Provider Nurse Practitioner Family
DX: L73.2 Hidradenitis suppurativa (principal); L30.4 Erythema intertrigo; L98.492 Non-pressure chronic ulcer of skin of other sites with fat layer exposed; E11.622 Type 2 diabetes mellitus with other skin ulcer; F17.200 Nicotine dependence, unspecified, uncomplicated; E65 Localized adiposity
CPT/HCPCS: 11042

== ENCOUNTER 2020-08-27 11:00 | Outpatient (RCR) | payer OTHER, SELFPAY ==
[2020-08-09 00:38] VITALS: BP 138/92; PULSE 78; RESP 16; TEMP 36.8; O2SAT 97
[2020-08-13 11:06] VITALS: BP 143/90; PULSE 78; RESP 16; TEMP 35.9; BMI 33.3
[2020-08-13 11:42] VITALS: BP 132/87; PULSE 74; RESP 16
--- NOTE | 2020-08-14 15:32 | PCM.WC.PN ---
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: Chronic Current Visit: Yes Code(s): L98.492 - Non-pressure chronic ulcer of skin of other sites with fat layer exposed (2) Hidradenitis suppurativa Status: Chronic Current Visit: Yes Code(s): L73.2 - Hidradenitis suppurativa Comment: abdominal wall skin crease bilateral inguinal/medial thighs (3) Obesity Status: Chronic Current Visit: No Qualifiers: Code(s): E66.9 - Obesity, unspecified (4) Smoker Status: Chronic Current Visit: No Code(s): F17.200 - Nicotine dependence, unspecified, uncomplicated (5) Diabetes Status: Chronic Current Visit: No Qualifiers: Code(s): E11.9 - Type 2 diabetes mellitus without complications Type of Wound Date of Service: 08/13/20 Chief Complaint: Nonhealing diabetic hidradenitis ulcer abdominal wall. History of Wound: Patient presents with persistent hidradenitis in his abdominal wall skin crease. He has an abdominal panniculus and associated intertrigo. He had excision of necrotizing soft tissue hidradenitis infection with abdominal panniculectomy in 07/28. The resultant wound healed and then intermittently breaks down and ulcerates. He initially was applying Silver dressing changes daily, but began having issues packing the Silver dressing into the opened ulcer; he was switched to 1/4 Iodoform gauze daily to the area. Wound culture from 04/23/20 was positive for Staphylococcus aureus, Proteus mirabilis, and Streptococcus agalactiae (B). He was placed on Levaquin and Augmentin and has finished them. He had another wound culture done on 06/04/20 which was positive for MRSE. He was placed on Doxycycline. Prealbumin from 01/03/20 was 21.9. Encourage nutritional supplementation with protein to help the healing process. HgbA1c from 01/03/20 was 8.3. He states that he went to see Dr. Cordell Gonzalez, [employer] Supervisor, and his HgA1c was over 10 last week. She is making adjustments to his medications. Today he denies fever. His appetite is good. Progress of Wound: Slowly improving. The patient denies any fever, chills, nausea, vomiting, or diarrhea. Denies any signs of infection, including increasing pain, redness, swelling, or drainage from affected area. - Physical Exam Vital Signs Temp Pulse Resp BP Pulse Ox 96.6 F L 74 16 132/87 H 97 08/13/20 11:06 08/13/20 11:42 08/13/20 11:42 08/13/20 11:42 08/09/20 00:38 General: Alert, Oriented x3, No apparent distress HEENT: Atraumatic, Normocephalic Oral: Moist Mucosa Neck: Supple, Trachea Midline Lungs: Normal air movement Abdomen: Soft, Non Tender Skin: Ulcer/ Wound - Lower abdominal ulcer with subcutaneous layer exposed. No kassandra-ulcer erythema, swelling, tenderness, or warmth. No purulent or malodorous drainage. No tunneling, undermining, probing to bone. Wound Measurements and Assessment WC - Nurse 1 - General Ulcer Measurement Start: 08/13/20 11:06 Freq: Status: Active Protocol: Activity Type Activity Date Activity User E-Sign Co-Sign Detail Recorded Client Recorded Date Recorded By Document 08/13/20 11:06 [facility] [id number] 08/13/20 11:10 [facility] 08/13/20 11:06 Wound Center Nurse 1 [Ulcer Assessment] #11- R ABDOMEN -Combined with other wound No -Current Size (cm) - Length 0.5 -Current Size (cm) - Width 0.1 -Current Size (cm) - Depth 0.3 -Total Square Cm 0.05 -Photo Taken No -Epithelialization None Present -Tunneling No -Undermining/Tunneling No -Circular Undermining No -Exudate Amt Small -Exudate Type Serous -Wound Margin Distinct, Outline Attached -Granulation Amt Large (67-100%) -Granulation Quality Red -Slough/Fibrin No -Necrosis Amt None Present (0 %) -Texture (Kassandra-wound Skin Appearance) Assessed, Scarring -Moisture (Kassandra-wound Skin Appearance Assessed,Dry/ ) Scaly -Color (Kassandra-wound Skin Appearance) Assessed -Temperature (Kassandra-wound Skin No Abnormality Appearance) (Pt Warm) -Tenderness on Palpation (Kassandra-wound No Skin Appearance) -Ulcer Cleansing Rinsed/ Irrigated with Saline -Foul Odor after Cleansing No -Anesthetic Used 5% Lidocaine Gel WC - Nurse 2 - General Ulcer CM Notes Start: 08/13/20 11:06 Freq: Status: Active Protocol: Activity Type Activity Date Activity User E-Sign Co-Sign Detail Recorded Client Recorded Date Recorded By Document 08/13/20 11:24 [id number] 08/13/20 11:26 08/13/20 11:24 Wound Center Nurse 2 [Procedure/Treatment] -Time 11:25 -Correct Patient Yes -Correct Side, Site, Position Yes -Correct Procedure Yes -Procedure Performed Yes -Type of Procedure Debridement -Clinical Debridement Subcutaneous -Tissue Removed Subcutaneous -Post Debridement (cm) - Length 0.3 -Post Debridement (cm) - Width 0.3 -Post Debridement (cm) - Depth 0.4 -Total Square (Post) (cm) 0.09 -Area of Debridement (cm) - Length 0.3 -Area of Debridement (cm) - Width 0.3 -Total Square (Area) (cm) 0.09 -Tunneling No -Undermining/Tunneling No -Circular Undermining No -Wound/Ulcer Outcome Not Healed -Ulcer Cleansing Rinsed/ Irrigated with Saline -Foul Odor after Cleansing No -Bioengineered Tissue No -Bleeding Controlled with Pressure -Offloading No -Treatment Response Procedure Tolerated Well -Debridement - Subq, 1st 20sq cm Yes [See Physician Procedure note for Specifics] Pain Scale: 0-10 Numeric [Pain] -Is Patient Pain Free? Yes WC - Nurse 3 - General Ulcer D/C NN Start: 08/13/20 11:06 Freq: Status: Active Protocol: Activity Type Activity Date Activity User E-Sign Co-Sign Detail Recorded Client Recorded Date Recorded By Document 08/13/20 11:42 [facility] [id number] 08/13/20 11:44 [facility] 08/13/20 11:42 Wound Care Nurse 3 [Wound Dressing] #11- R ABDOMEN -Ulcer Cleansing Rinsed/ Irrigated with Saline -Foul Odor after Cleansing No -Primary Dressing Applied Nugauze, Plain Iodoform,Other -Other Dressing hydrogel -Primary Dressing Covered/Secured Dry Gauze, with Secured with Tape -Nugauze, Plain Iodoform 1/ 1 [Post Procedure Tolerated] -Treatment Response Procedure Tolerated Well Vital Signs [Pulse] -Pulse Rate (60-100) 74 -Pulse Location Monitor [Respirations] -Respiratory Rate (12-18) 16 -Respiratory rate source Observation -Oxygen Delivery Method Room Air [Blood Pressure] -Blood Pressure (90/60-120/80) 132/87 H -Blood Pressure Mean (mm Hg) 102 -Source Monitor -Position Sitting -Blood Pressure Location Right Arm Pain Scale: 0-10 Numeric [Pain] -Is Patient Pain Free? Yes - Visit Discharge [Visit Discharge Information] -Discharge Condition Stable -Ambulatory Status Ambulatory -Transportation Private Auto Psych/Mental Status: Normal Affect, Appropriate Debridement Note Post-Debridement Measurements/Treatment - Nurse 2 - General Ulcer CM Notes Start: 08/13/20 11:06 Freq: Status: Active Protocol: Activity Type Activity Date Activity User E-Sign Co-Sign Detail Recorded Client Recorded Date Recorded By Document 08/13/20 11:24 [id number] 08/13/20 11:26 08/13/20 11:24 Wound Center Nurse 2 #11- R ABDOMEN -Time 11:25 -Correct Patient Yes -Correct Side, Site, Position Yes -Correct Procedure Yes -Procedure Performed Yes -Type of Procedure Debridement -Clinical Debridement Subcutaneous -Tissue Removed Subcutaneous -Post Debridement (cm) - Length 0.3 -Post Debridement (cm) - Width 0.3 -Post Debridement (cm) - Depth 0.4 -Total Square (Post) (cm) 0.09 -Area of Debridement (cm) - Length 0.3 -Area of Debridement (cm) - Width 0.3 -Total Square (Area) (cm) 0.09 -Tunneling No -Undermining/Tunneling No -Circular Undermining No -Wound/Ulcer Outcome Not Healed -Ulcer Cleansing Rinsed/ Irrigated with Saline -Foul Odor after Cleansing No -Bioengineered Tissue No -Bleeding Controlled with Pressure -Offloading No -Treatment Response Procedure Tolerated Well -Debridement - Subq, 1st 20sq cm Yes Pain Scale: 0-10 Numeric Is Patient Pain Free? Yes - Nurse 3 - General Ulcer D/C NN Start: 08/13/20 11:06 Freq: Status: Active Protocol: Activity Type Activity Date Activity User E-Sign Co-Sign Detail Recorded Client Recorded Date Recorded By Document 08/13/20 11:42 [facility] [id number] 08/13/20 11:44 [facility] 08/13/20 11:42 Wound Care Nurse 3 #11- R ABDOMEN -Ulcer Cleansing Rinsed/ Irrigated with Saline -Foul Odor after Cleansing No -Primary Dressing Applied Nugauze, Plain Iodoform,Other -Other Dressing hydrogel -Primary Dressing Covered/Secured with Dry Gauze, Secured with Tape -Nugauze, Plain Iodoform 11/12 1 Treatment Response Procedure Tolerated Well Vital Signs Pulse Rate (60-100) 74 Pulse Location Monitor Respiratory Rate (12-18) 16 Respiratory rate source Observation Oxygen Delivery Method Room Air Blood Pressure (90/60-120/80) 132/87 H Blood Pressure Mean (mm Hg) 102 Source Monitor Position Sitting Blood Pressure Location Right Arm Pain Scale: 0-10 Numeric Is Patient Pain Free? Yes WC - Visit Discharge Discharge Condition Stable Ambulatory Status Ambulatory Transportation Private Auto Wound debrided: lower medial abdominal wall ulcer Laterality: Not Applicable Type of Debridement: Excisional debridement Anesthesia Used: 5% Lidocaine Gel Depth: in the subcutaneous layer Percentage of wound debrided: 100 Instrument Used: 3mm curette Tissue Removed: slough and devitalized tissue Severity: Fat Layer Exposed Amount of bleeding with debridement: Mild Bleeding Controlled with: Pressure Patient tolerated procedure well Assessment/Plan Active Problems (Last Reviewed 07/05/20 @ 11:14 by Haley Marti) Skin ulcer of abdominal wall with fat layer exposed (Chronic) Hidradenitis suppurativa (Chronic) abdominal wall skin crease bilateral inguinal/medial thighs Assessment: 1. Nonhealing diabetic hidradenitis ulce abdominal wall. 2. Abdominal wall skin crease intertrigo. 3. Hidradenitis. 4. Diabetes. 5. Abdominal panniculus. 6. Smoker. Plan: Wound care- will change dressing from quarter inch iodoform gauze to collagen hydrogel and new gauze. Dressing is to be changed daily after cleaning with soap and water. He was previously recommended that he keep the area shaved to minimize healing issues. He has not done this because he states that shaving aggravates his hidradenitis. Latest wound culture 06/04/20 showed HUBER and he was started on Doxycycline. His last A1c in 12/29 was 8.3. It needs to be less than 8 for surgical consideration. Has been seeing Dr. Gonzalez (endocrine) and she is changing his medications around. He states that his HgA1c is over 10. Follow-up in 2 weeks for reevaluation. Follow-up sooner if new or concerning symptoms arise. Encouraged patient to stop smoking as it may have deleterious effects on wound healing. Note: [employer] speech recognition butcher chicken and fish software was used to create portions of this document. Sound-alike and misspelled words, as well as other butcher chicken and fish errors may be contained in the documentation. [id number]: [id number] Steff subq tissue 20 sq cm/<
[2020-08-27 11:07] VITALS: BP 125/75; PULSE 88; RESP 16; TEMP 36.3; BMI 33.3
--- NOTE | 2020-08-27 12:14 | PN.PCM_ITS ---
Type of Wound Date of Service: 08/27/20 Chief Complaint: Nonhealing diabetic hidradenitis ulcer abdominal wall. History of Wound: Patient presented with persistent hidradenitis in his abdominal wall skin crease. He has an abdominal panniculus and associated intertrigo. He had excision of necrotizing soft tissue hidradenitis infection with abdominal panniculectomy in 07/28. The resultant wound healed and then intermittently breaks down and ulcerates. He has been applying Silver dressing changes daily. Wound culture from 04/23/20 was positive for Staphylococcus aureus, Proteus mirabilis, and Streptococcus agalactiae (B). He was placed on Levaquin and Augmentin and has finished them. He had another wound culture done on 06/04/20 which was positive for MRSE. He was placed on Doxycycline and has finished them. Prealbumin from 01/03/20 was 21.9. Encourage nutritional supplementation with protein to help the healing process. HgbA1c from 01/03/20 was 8.3. He states that he went to see Dr. Cordell Gonzalez, Systems Engineer, and his recent HgA1c was over 10. She is making adjustments to his medications. Today he denies fever. His appetite is good. Progress of Wound: Healed. - Physical Exam Vital Signs Temp Pulse Resp BP Pulse Ox 97.3 F L 88 16 125/75 H 97 08/27/20 11:07 08/27/20 11:07 08/27/20 11:07 08/27/20 11:07 08/09/20 00:38 General: Alert, Oriented x3 HEENT: PERRLA, EOMI Oral: Moist Mucosa Neck: Supple Lungs: Clear to auscultation Cardiovascular: Regular rate, Regular Rhythm Abdomen: Soft, Non-Distended Skin: Ulcer/ Wound - abdominal wall ulcer is healed. Wound Measurements and Assessment WC - Nurse 1 - General Ulcer Measurement Start: 08/13/20 11:06 Freq: Status: Discharge Protocol: Activity Type Activity Date Activity User E-Sign Co-Sign Detail Recorded Client Recorded Date Recorded By Document 08/27/20 11:07 [facility] [id number] 08/27/20 11:11 [facility] Edit Status 08/27/20 11:31 BKG DAEMON Active=>Discharge [id number] 08/27/20 11:31 BKG DAEMON 08/27/20 11:07 Wound Center Nurse 1 [Ulcer Assessment] #11- R ABDOMEN -Combined with other wound No -Current Size (cm) - Length 0.1 -Current Size (cm) - Width 0.1 -Current Size (cm) - Depth 0.1 -Total Square Cm 0.01 -Epithelialization Large 67-100% -Texture (Kassandra-wound Skin Appearance) Assessed -Moisture (Kassandra-wound Skin Appearance Assessed ) -Color (Kassandra-wound Skin Appearance) Assessed -Temperature (Kassandra-wound Skin No Abnormality Appearance) (Pt Warm) -Tenderness on Palpation (Kassandra-wound No Skin Appearance) -Ulcer Cleansing Rinsed/ Irrigated with Saline - Nurse 2 - General Ulcer CM Notes Start: 08/13/20 11:06 Freq: Status: Discharge Protocol: Activity Type Activity Date Activity User E-Sign Co-Sign Detail Recorded Client Recorded Date Recorded By Document 08/27/20 11:21 [id number] 08/27/20 11:22 Edit Status 08/27/20 11:31 [facility] 11:31 BKG DAEMON 08/27/20 11:21 Wound Center Nurse 2 [Procedure/Treatment] -Correct Patient No -Correct Side, Site, Position No -Correct Procedure No -Procedure Performed No -Post Debridement (cm) - Length 0 -Post Debridement (cm) - Width 0 -Post Debridement (cm) - Depth 0 -Total Square (Post) (cm) 0 -Area of Debridement (cm) - Length 0 -Area of Debridement (cm) - Width 0 -Total Square (Area) (cm) 0 -Wound/Ulcer Outcome Healed- Epithelialized [See Physician Procedure note for Specifics] Pain Scale: 0-10 Numeric [Pain] -Is Patient Pain Free? Yes - Nurse 3 - General Ulcer D/C NN Start: 08/13/20 11:06 Freq: Status: Discharge Protocol: Activity Type Activity Date Activity User E-Sign Co-Sign Detail Recorded Client Recorded Date Recorded By Document 08/27/20 11:22 [id number] 08/27/20 11:22 TONG Edit Status 08/27/20 11:31 BKG DAEMON Active=>Discharge [facility] 08/27/20 11:31 BKG DAEMON 08/27/20 11:22 -Is Patient Pain Free? Yes - Visit Discharge [Visit Discharge Information] -Discharge Condition Stable -Ambulatory Status Ambulatory -Transportation Private Auto -Medication Reconcilliation completed Yes & provided to patient/care provider -Clinical Summary of Care Provided Yes Neurological: Cranial nerves II-XII grossly intact Psych/Mental Status: Normal Affect, Appropriate Debridement Note Post-Debridement Measurements/Treatment - Nurse 2 - General Ulcer CM Notes Start: 08/13/20 11:06 Freq: Status: Discharge Protocol: Activity Type Activity Date Activity User E-Sign Co-Sign Detail Recorded Client Recorded Date Recorded By Document 08/13/20 11:24 [id number] 08/13/20 11:26 Document 08/27/20 11:21 [id number] 08/27/20 11:22 08/13/20 08/27/20 11:24 11:21 Wound Center Nurse 2 #11- R ABDOMEN -Time 11:25 -Correct Patient Yes No -Correct Side, Site, Position Yes No -Correct Procedure Yes No -Procedure Performed Yes No -Type of Procedure Debridement -Clinical Debridement Subcutaneous -Tissue Removed Subcutaneous -Post Debridement (cm) - Length 0.3 0 -Post Debridement (cm) - Width 0.3 0 -Post Debridement (cm) - Depth 0.4 0 -Total Square (Post) (cm) 0.09 0 -Area of Debridement (cm) - Length 0.3 0 -Area of Debridement (cm) - Width 0.3 0 -Total Square (Area) (cm) 0.09 0 -Tunneling No -Undermining/Tunneling No -Circular Undermining No -Wound/Ulcer Outcome Not Healed Healed- Epithelialized -Ulcer Cleansing Rinsed/ Irrigated with Saline -Foul Odor after Cleansing No -Bioengineered Tissue No -Bleeding Controlled with Pressure -Offloading No -Treatment Response Procedure Tolerated Well -Debridement - Subq, 1st 20sq cm Yes Pain Scale: 0-10 Numeric Is Patient Pain Free? Yes Yes - Nurse 3 - General Ulcer D/C NN Start: 08/13/20 11:06 Freq: Status: Discharge Protocol: Activity Type Activity Date Activity User E-Sign Co-Sign Detail Recorded Client Recorded Date Recorded By Document 08/13/20 11:42 [facility] [id number] 08/13/20 11:44 [facility] Document 08/27/20 11:22 [id number] 08/27/20 11:22 08/13/20 08/27/20 11:42 11:22 Wound Care Nurse 3 #11- R ABDOMEN -Ulcer Cleansing Rinsed/ Irrigated with Saline -Foul Odor after Cleansing No -Primary Dressing Applied Nugauze, Plain Iodoform,Other -Other Dressing hydrogel -Primary Dressing Covered/Secured with Dry Gauze, Secured with Tape -Nugauze, Plain Iodoform 11/12 1 Treatment Response Procedure Tolerated Well Vital Signs Pulse Rate (60-100) 74 Pulse Location Monitor Respiratory Rate (12-18) 16 Respiratory rate source Observation Oxygen Delivery Method Room Air Blood Pressure (90/60-120/80) 132/87 H Blood Pressure Mean (mm Hg) 102 Source Monitor Position Sitting Blood Pressure Location Right Arm Pain Scale: 0-10 Numeric Is Patient Pain Free? Yes Yes WC - Visit Discharge Discharge Condition Stable Stable Ambulatory Status Ambulatory Ambulatory Transportation Private Auto Private Auto Medication Reconcilliation completed & Yes provided to patient/care provider Clinical Summary of Care Provided Yes Assessment/Plan Assessment: 1. Diabetic hidradenitis ulcer abdominal wall, healed. 2. Abdominal wall skin crease intertrigo. 3. Hidradenitis. 4. Diabetes. 5. Abdominal panniculus. 6. Smoker. Plan: The abdominal wall ulcer has healed. Massage with skin lotion daily to help soften up the scar. Patient is not interested in any further abdominal wall surgery at this time. He will followup on an as needed basis if recurrent abrasion ulcerations develop in his abdominal wall scarring. The HgbA1c in 12/29 was 8.3. It needs to be less than 8 if any further elective surgery is needed. He is seeing an Systems Engineer to help with management of his diabetes mellitus. He states a recent HgbA1c was over 10. Prealbumin from 01/03/20 was 21.9. Encourage nutritional supplementation with protein to help the healing process. Encouraged patient to stop smoking as it may have deleterious effects on wound healing. Followup on an as needed basis. Office Visits / Consults: [id number] OV L3 Est - ICD-10 - L98.492, L73.2, E11.9, E65, L30.4, F17.200.
== END 2020-08-27 11:30 | disposition home or self-care (01) ==
LOC: WC 11:00
PROVIDERS: PCP Internal Medicine; Visit Provider Nurse Practitioner Family
DX: L73.2 Hidradenitis suppurativa (principal); L30.4 Erythema intertrigo; L98.492 Non-pressure chronic ulcer of skin of other sites with fat layer exposed; F17.200 Nicotine dependence, unspecified, uncomplicated; E65 Localized adiposity; E66.9 Obesity, unspecified; E11.9 Type 2 diabetes mellitus without complications
CPT/HCPCS: 11042; 99212; G0463

== ENCOUNTER 2021-09-25 10:30 | Outpatient (RCR) | payer OTHER, SELFPAY ==
[2021-09-11 10:03] VITALS: BP 131/88; PULSE 104; RESP 16; TEMP 35.5; BMI 31.6
--- NOTE | 2021-09-11 12:14 | PCM.WC.HP ---
History of Present Illness Date of Service: 09/11/21 Chief Complaint: Follow-up on his right posterior thigh sebaceous cyst Also complaining that the hidradenitis in the groin bilaterally are draining intermittently History of Wound: Patient has history of hidradenitis and has had surgery on his abdomen for removal. The ones in the groin have not been removed and are constant annoyance to him. He states he has to wear Depends because of the drainage problem. He is requesting for him to use to help dry them up. Posterior right thigh August 24 was in the emergency room for a infected hair follicle. The area was incised and drained well now he has a small slit that is healing slowly, with no sign of infection. [facility] Medical History Back problem Diabetes Fatty liver Hearing problem Hidradenitis Meniere's disease Recurrent infections Tobacco dependence Vitamin deficiency Home Medications omeprazole 20 mg capsule,delayed release 40 mg PO DAILY 06/10/19 [History Last Taken 01/02/20 09:00] flash glucose scanning reader #1 ea 07/27/20 [Rx Last Taken Unknown] dapagliflozin 10 mg tablet 10 mg PO DAILY #90 tab 07/19/21 [Rx Last Taken Unknown] flash glucose sensor #2 ea 07/19/21 [Rx Last Taken Unknown] metformin 850 mg tablet 850 mg PO DAILY #90 tab 07/19/21 [Rx Last Taken Unknown] calcium carbonate [Caltrate 600] 600 mg PO DAILY 09/11/21 [History Last Taken Unknown] cephalexin 500 mg PO BID 09/11/21 [History Last Taken Unknown] cholecalciferol (vitamin D3) [Vitamin D3] 50 mcg PO DAILY 09/11/21 [History Last Taken Unknown] doxycycline monohydrate 100 mg PO BID 09/11/21 [History Last Taken Unknown] Allergy/AdvReac Type Severity Reaction Status Date / Time sulfamethoxazole Allergy Severe BODY RASH Verified 09/11/21 10:23 [From Bactrim] trimethoprim [From Bactrim] Allergy Severe BODY RASH Verified 09/11/21 10:23 Family History Uncle Alcohol abuse Aunt Alcohol abuse Grandfather Alcohol abuse Sister Anemia Anxiety Diabetes Mother Anemia Diabetes Heart disease CVA (cerebral vascular accident) Father Bone cancer COPD (chronic obstructive pulmonary disease) Surgical History History of excision of pilonidal cyst Status post hemilaminotomy Social History Smoking Status: Current every day smoker counseling given: provider counseling and counseling >10 minutes alcohol intake: never substance use type: does not use additional social history: DOES USE ASPIRIN DOES USE IBUPROFEN ROS Integumentary Integumentary: Reports non-healing lesions, wounds and other Details: Nonhealing surgical wound on back of posterior thigh. Hidradenitis is in groin nonhealing Vital Signs Vital Signs Vital Signs: 09/11/21 10:03 Temperature 96 F L Temperature Source Temporal Pulse Rate 104 H Respiratory Rate 16 Blood Pressure 131/88 H Blood Pressure Mean 102 Blood Pressure Source Monitor Blood Pressure Position Sitting Blood Pressure Location Right Arm Oxygen Delivery Method Room Air Weight Weight: 202 lb Body Mass Index (BMI) 31.6 Physical Exam Const oriented x3 General Appearance: cooperative Exam Limitations: no limitations Resp normal respiratory effort Effort and Inspection: able to speak in complete sentences Auscultation: clear to auscultation bilaterally Cardio regular rate and regular rhythm Palpation: normal PMI Rate: regular rate Rhythm: regular rhythm GI Auscultation: normoactive bowel sounds Palpation: soft and no hepatosplenomegaly external exam normal Extremity normal to inspection General Extremity: normal exam except as noted Skin General Skin Exam: other Hidradenitis bilateral groin with small pinhole drainage Posterior right thigh surgical I&D nonhealing ulcer Neuro oriented x3 Psych Appearance: grossly normal Speech: normal speech Thought Content: normal thought content Judgement: judgement good Debridement Note Debridement Note Wound debrided: Right posterior thigh surgical wound nonhealing Laterality: Right Type of Debridement: Excisional debridement Anesthesia Used: 5% Lidocaine Gel Depth: Down to and including healthy tissue Percentage of wound debrided: 100 Instrument Used: 3mm curette Severity: Fat Layer Exposed Amount of bleeding with debridement: Mild Bleeding Controlled with: Pressure Patient tolerated procedure: Patient tolerated procedure well Post-Debridement Measurements and Additional Note: Post-Debridement Measurements/Treatment WC - Nurse 1 - General Ulcer Assessment Start: 09/11/21 10:03 Freq: Status: Active Protocol: DESMOND Activity Type Activity Date Activity User E-Sign Co-Sign Detail Recorded Client Recorded Date Recorded By Document 09/11/21 10:[address] [facility] [id number] 09/11/21 10:[address] [facility] 09/11/21 10:03 - Today's Visit Information Type of service Follow-up Visit (Physician/CARE TRANSITION COORDINATOR ) Arrival Mode Ambulatory Transfer Assistance None Patient Identification Verified (Name & Yes ) Height and Weight Height 5 ft 7 in Weight 202 lb Weight in Pounds 202.0 lbs Body Mass Index (BMI) 31.6 BMI Classification Obese BSA - Gen 2.03 Vital Signs Temperature (97.8 F-99.1 F) 96 F L Temperature Source Temporal Pulse Rate (60-100) 104 H Pulse Location Monitor Respiratory Rate (12-18) 16 Respiratory rate source Observation Oxygen Delivery Method Room Air Blood Pressure (90/60-120/80) 131/88 H Blood Pressure Mean (mm Hg) 102 Source Monitor Position Sitting Blood Pressure Location Right Arm History Since Last Visit- (Skip if this is Patient's initial visit) Left Footwear Regular Shoe Right Footwear Regular Shoe Communication Assessment Preferred language Pashto Cfd Engineer Required No Able to Read Yes Able to Write Yes Communication Tools None Right Hearing Abillity Normal Left Hearing Abillity Normal Visual Assistive Devices Glasses Teaching Assessment Preferences Verbal,Written, Audio/Visual, Demonstration Barriers to Learning None Readiness To Learn Excellent Willingness to Engage in Self Management High Activies Readiness to Engage in Self Management High Activities Anxiety Level Calm Cooperation Cooperative Perception Coherent Interest in Health Problem Asks Questions Education Importance Acknowledges Need Does Patient Smoke tobacco or other No substances Smoking Status Current every day smoker Is Patient Diabetic Yes Functional Assessment Recent Decline in Ability to Perform Denies Any Declines Culture/Hinduism/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 [id number] 09/11/21 10:[address] [facility] 09/11/21 10:03 Wound Center Nurse 1 #14- R POST THIGH -Combined with other wound No -Current Size (cm) - Length 0.1 -Current Size (cm) - Width 0.4 -Current Size (cm) - Depth 0.2 -Total Square Cm 0.04 -Date of Last Picture (Recall this 09/11/21 field) -Photo Taken Yes -Tunneling No -Undermining/Tunneling No -Circular Undermining No -Exudate Amt Small -Exudate Type Purulent -Wound Margin Distinct, Outline Attached -Granulation Amt Large (67-100%) -Granulation Quality Red -Slough/Fibrin No -Necrosis Amt None Present (0 %) -Texture (Kassandra-wound Skin Appearance) Assessed, Scarring -Moisture (Kassandra-wound Skin Appearance) Assessed -Color (Kassandra-wound Skin Appearance) Assessed -Temperature (Kassandra-wound Skin No Abnormality Appearance) (Pt Warm) -Tenderness on Palpation (Kassandra-wound No Skin Appearance) -Ulcer Cleansing Rinsed/ Irrigated with Saline -Foul Odor after Cleansing No -Anesthetic Used 4% Lidocaine Solution #13- L GROIN -Combined with other wound No -Current Size (cm) - Length 0.1 -Current Size (cm) - Width 0.1 -Current Size (cm) - Depth 0.1 -Total Square Cm 0.01 -Date of Last Picture (Recall this 09/11/21 field) -Photo Taken Yes -Tunneling No -Undermining/Tunneling No -Circular Undermining No -Exudate Amt Small -Exudate Type Purulent -Texture (Kassandra-wound Skin Appearance) Assessed -Moisture (Kassandra-wound Skin Appearance) Assessed -Color (Kassandra-wound Skin Appearance) Assessed -Temperature (Kassandra-wound Skin No Abnormality Appearance) (Pt Warm) -Tenderness on Palpation (Kassandra-wound No Skin Appearance) -Ulcer Cleansing Rinsed/ Irrigated with Saline -Foul Odor after Cleansing No -Anesthetic Used 4% Lidocaine Solution #12 R GROIN -Combined with other wound No -Current Size (cm) - Length 0.1 -Current Size (cm) - Width 0.1 -Current Size (cm) - Depth 0.1 -Total Square Cm 0.01 -Date of Last Picture (Recall this 09/11/21 field) -Photo Taken Yes -Tunneling No -Undermining/Tunneling No -Circular Undermining No -Exudate Amt Small -Exudate Type Purulent -Texture (Kassandra-wound Skin Appearance) Assessed -Moisture (Kassandra-wound Skin Appearance) Assessed -Color (Kassandra-wound Skin Appearance) Assessed -Temperature (Kassandra-wound Skin No Abnormality Appearance) (Pt Warm) -Tenderness on Palpation (Kassandra-wound No Skin Appearance) -Ulcer Cleansing Rinsed/ Irrigated with Saline -Foul Odor after Cleansing No -Anesthetic Used 4% Lidocaine Solution WC - Nurse 2 - General Ulcer CM Notes Start: 09/11/21 10:03 Freq: Status: Active Protocol: Activity Type Activity Date Activity User E-Sign Co-Sign Detail Recorded Client Recorded Date Recorded By Document 09/11/21 10:49 MW [id number] 09/11/21 11:00 MW 09/11/21 10:49 Wound Center Nurse 2 #14- R POST THIGH -Time 10:49 -Correct Patient Yes -Correct Side, Site, Position Yes -Correct Procedure Yes -Procedure Performed Yes -Type of Procedure Debridement -Clinical Debridement Subcutaneous -Tissue Removed Subcutaneous -Post Debridement (cm) - Length 0.1 -Post Debridement (cm) - Width 0.4 -Post Debridement (cm) - Depth 0.2 -Total Square (Post) (cm) 0.04 -Area of Debridement (cm) - Length 0.1 -Area of Debridement (cm) - Width 0.4 -Total Square (Area) (cm) 0.04 -Tunneling No -Undermining/Tunneling No -Circular Undermining No -Wound/Ulcer Outcome Not Healed -Ulcer Cleansing Rinsed/ Irrigated with Saline -Foul Odor after Cleansing No -Bioengineered Tissue No -Bleeding Controlled with Pressure -Offloading No -Treatment Response Procedure Tolerated Well -Debridement - Subq, 1st 20sq cm Yes #13- L GROIN -Time 10:53 -Correct Patient Yes -Correct Side, Site, Position Yes -Correct Procedure Yes -Procedure Performed No -Wound/Ulcer Outcome Not Healed #12 R GROIN -Time 10:53 -Correct Patient Yes -Correct Side, Site, Position Yes -Correct Procedure Yes -Procedure Performed No -Tunneling No -Undermining/Tunneling No -Circular Undermining No -Wound/Ulcer Outcome Not Healed Lab / Micro Data Attestation: I reviewed the patient's lab results. Assessment/Plan Assessment/Plan (1) Non-healing surgical wound: CODE(S): T81.89XA - Other complications of procedures, not elsewhere classified, initial encounter PLAN: Wash area with antibacterial soap and apply Promogran into wound base cover with gauze and tape every day Patient is to return in 2 weeks (2) Sebaceous cyst: CODE(S): L72.3 - Sebaceous cyst (3) Hidradenitis suppurativa: CODE(S): L73.2 - Hidradenitis suppurativa PLAN: Wash areas with antibacterial soap apply Xeroform with gauze and wear either tightfitting long longer underwear to hold dressings in place. Also suggested may be wearing bikers pants that are have Lycra in it to hold in place. He should talk to his family doctor to talk to rheumatology about going on injections of Humira for treatment to help dry them up. Patient was also written a note for school because he has to drop out because of all the dressing changes and drainage he is having it is hard for him to sit in class.
[2021-09-25 10:43] VITALS: BP 125/84; PULSE 94; TEMP 37.1; BMI 31.6
--- NOTE | 2021-09-25 12:40 | PCM.WC.PN ---
History of Present Illness Date of Service: 09/25/21 Chief Complaint: Follow-up on his right posterior thigh sebaceous cyst Also complaining that the hidradenitis in the groin bilaterally are draining intermittently History of Wound: Patient has history of hidradenitis and has had surgery on his abdomen for removal. The ones in the groin have not been removed and are constant annoyance to him. He states he has to wear Depends because of the drainage problem. He is requesting for him to use to help dry them up. Posterior right thigh August 24 was in the emergency room for a infected hair follicle. The area was incised and drained well now he has a small slit that is healing slowly, with no sign of infection. Progress of Wound: The right posterior thigh sebaceous cyst is still open but was unable to get any Promogran down in the wound. Therefore it still open and a slit that he needs to be closed this time we will try iodoform quarter-inch gauze to packing the wound. He also complains that the Xeroform on his groin area keeps falling off during the day and only uses it at night. He also states that he got an appointment with dermatology to try to get him on the Humira which I suggested that he try to get on to help dry up his hidradenitis. Subjective Subjective Patient states no change in the care Objective Data Objective Data As stated before the site is still the same size opening needs to be packed better we will try using quarter inch iodoform gauze Vital Signs: Vital Signs Temp Pulse Resp BP 98.7 F 94 16 125/84 H 09/25/21 10:43 09/25/21 10:43 09/11/21 10:03 09/25/21 10:43 Oxygen Delivery Method Room Air Weight: 202 lb Body Mass Index (BMI) 31.6 Physical Exam Const oriented x3 General Appearance: cooperative Exam Limitations: no limitations Resp normal respiratory effort Effort and Inspection: able to speak in complete sentences Auscultation: clear to auscultation bilaterally Cardio regular rate and regular rhythm Palpation: normal PMI Rate: regular rate Rhythm: regular rhythm GI Auscultation: normoactive bowel sounds Palpation: soft and no hepatosplenomegaly external exam normal Extremity normal to inspection General Extremity: normal exam except as noted Skin General Skin Exam: other Hidradenitis bilateral groin with small pinhole drainage Posterior right thigh surgical I&D nonhealing ulcer Neuro oriented x3 Psych Appearance: grossly normal Speech: normal speech Thought Content: normal thought content Judgement: judgement good Debridement Note Debridement Note Wound debrided: Right posterior thigh surgical site of a sebaceous cyst Type of Debridement: Excisional debridement Anesthesia Used: 5% Lidocaine Gel Depth: in the subcutaneous layer Percentage of wound debrided: 100 Instrument Used: 5mm curette Tissue Removed: Fibrin Severity: Fat Layer Exposed Amount of bleeding with debridement: Mild Bleeding Controlled with: Compression and gauze Patient tolerated procedure: Patient tolerated procedure well Post-Debridement Measurements and Additional Note: Post-Debridement Measurements/Treatment - Nurse 1 - General Ulcer Assessment Start: 09/11/21 10:03 Freq: Status: Active Protocol: DESMOND Activity Type Activity Date Activity User E-Sign Co-Sign Detail Recorded Client Recorded Date Recorded By Document 09/11/21 10:03 [facility] [id number] 09/11/21 10:18 [facility] Document 09/25/21 10:43 [place] [id number] 09/25/21 10:48 [place] 09/11/21 09/25/21 10:03 10:43 - Today's Visit Information Type of service Follow-up Visit Follow-up Visit (Physician/GROOVER RUNNER (Physician/GROOVER RUNNER ) ) Arrival Mode Ambulatory Ambulatory Transfer Assistance None Patient Identification Verified (Name & Yes Yes ) Patient Requires Transmission-Based No Precautions Safety Precautions NA Height and Weight Height 5 ft 7 in Weight 202 lb Weight in Pounds 202.0 lbs Body Mass Index (BMI) 31.6 31.6 BMI Classification Obese Obese BSA - Gen 2.03 Vital Signs Temperature (97.8 F-99.1 F) 96 F L 98.7 F Temperature Source Temporal Temporal Pulse Rate (60-100) 104 H 94 Pulse Location Monitor Monitor Respiratory Rate (12-18) 16 Respiratory rate source Observation Oxygen Delivery Method Room Air Blood Pressure (90/60-120/80) 131/88 H 125/84 H Blood Pressure Mean (mm Hg) 102 97 Source Monitor Monitor Position Sitting Blood Pressure Location Right Arm Have you changed medications since your No last visit? Any new allergies or adverse reactions No Had a fall/change in ADL's that may No increase risk of falls Signs or symptoms of abuse and/or No neglect since last visit Have you been in the hospital since your No last visit? Has dressing in place as prescribed Yes Has compression in place as prescribed N/A Has offloadiing in place as prescribed N/A Experienced any changes in pain level or No management History Since Last Visit- (Skip if this is Patient's initial visit) Left Footwear Regular Shoe Regular Shoe Right Footwear Regular Shoe Regular Shoe Communication Assessment Preferred language Filipino Irrigation Equipment Installer Required No Able to Read Yes Able to Write Yes Communication Tools None Right Hearing Abillity Normal Left Hearing Abillity Normal Visual Assistive Devices Glasses Teaching Assessment Preferences Verbal,Written, Audio/Visual, Demonstration Barriers to Learning None Readiness To Learn Excellent Willingness to Engage in Self Management High Activies Readiness to Engage in Self Management High Activities Anxiety Level Calm Cooperation Cooperative Perception Coherent Interest in Health Problem Asks Questions Education Importance Acknowledges Need Does Patient Smoke tobacco or other No substances Smoking Status Current every day smoker Is Patient Diabetic Yes Functional Assessment Recent Decline in Ability to Perform Denies Any Declines 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 Cultural/Mandaeism Needs that may affect No Treatment Plan WC - Nurse 1 - General Ulcer Measurement Start: 09/11/21 10:03 Freq: Status: Active Protocol: Activity Type Activity Date Activity User E-Sign Co-Sign Detail Recorded Client Recorded Date Recorded By Document 09/11/21 10:03 [facility] [id number] 09/11/21 10:18 [facility] Document 09/25/21 10:43 [place] [id number] 09/25/21 10:48 [place] 09/11/21 09/25/21 10:03 10:43 Wound Center Nurse 1 #14- R POST THIGH -Combined with other wound No No -Current Size (cm) - Length 0.1 0.6 -Current Size (cm) - Width 0.4 0.2 -Current Size (cm) - Depth 0.2 0.3 -Total Square Cm 0.04 0.12 -Date of Last Picture (Recall this 09/11/21 field) -Photo Taken Yes No -Epithelialization None Present -Tunneling No -Undermining/Tunneling No No -Circular Undermining No Yes -Change in Wound Grade/Stage No -Exudate Amt Small None Present -Exudate Type Purulent -Wound Margin Distinct, Outline Attached -Granulation Amt Large (67-100%) None Present (0 %) -Granulation Quality Red N/A -Slough/Fibrin No No -Necrosis Amt None Present (0 None Present (0 %) %) -Structure Exposed N/A -Texture (Kassandra-wound Skin Appearance) Assessed, Assessed, Scarring Scarring -Moisture (Kassandra-wound Skin Appearance) Assessed No Abnormality, Assessed -Color (Kassandra-wound Skin Appearance) Assessed No Abnormality, Assessed -Temperature (Kassandra-wound Skin No Abnormality No Abnormality Appearance) (Pt Warm) (Pt Warm) -Tenderness on Palpation (Kassandra-wound No No Skin Appearance) -Ulcer Cleansing Rinsed/ Rinsed/ Irrigated with Irrigated with Saline Saline -Foul Odor after Cleansing No No -Anesthetic Used 4% Lidocaine 5% Lidocaine Solution Gel #13- L GROIN -Combined with other wound No -Current Size (cm) - Length 0.1 -Current Size (cm) - Width 0.1 -Current Size (cm) - Depth 0.1 -Total Square Cm 0.01 -Date of Last Picture (Recall this 09/11/21 field) -Photo Taken Yes -Tunneling No -Undermining/Tunneling No -Circular Undermining No -Exudate Amt Small -Exudate Type Purulent -Texture (Kassandra-wound Skin Appearance) Assessed -Moisture (Kassandra-wound Skin Appearance) Assessed -Color (Kassandra-wound Skin Appearance) Assessed -Temperature (Kassandra-wound Skin No Abnormality Appearance) (Pt Warm) -Tenderness on Palpation (Kassandra-wound No Skin Appearance) -Ulcer Cleansing Rinsed/ Irrigated with Saline -Foul Odor after Cleansing No -Anesthetic Used 4% Lidocaine Solution #12 R GROIN -Combined with other wound No No -Current Size (cm) - Length 0.1 0.2 -Current Size (cm) - Width 0.1 0.2 -Current Size (cm) - Depth 0.1 0.2 -Total Square Cm 0.01 0.04 -Date of Last Picture (Recall this 09/11/21 field) -Photo Taken Yes No -Epithelialization None Present -Tunneling No No -Undermining/Tunneling No No -Circular Undermining No No -Change in Wound Grade/Stage No -Exudate Amt Small Medium -Exudate Type Purulent Serosanguineous -Wound Margin Distinct, Outline Attached -Granulation Amt None Present (0 %) -Granulation Quality N/A -Slough/Fibrin No -Structure Exposed N/A -Texture (Kassandra-wound Skin Appearance) Assessed No Abnormality, Assessed -Moisture (Kassandra-wound Skin Appearance) Assessed No Abnormality, Assessed -Color (Kassandra-wound Skin Appearance) Assessed No Abnormality, Assessed -Temperature (Kassandra-wound Skin No Abnormality No Abnormality Appearance) (Pt Warm) (Pt Warm) -Tenderness on Palpation (Kassandra-wound No No Skin Appearance) -Ulcer Cleansing Rinsed/ Rinsed/ Irrigated with Irrigated with Saline Saline -Foul Odor after Cleansing No No -Anesthetic Used 4% Lidocaine 5% Lidocaine Solution Gel WC - Nurse 2 - General Ulcer CM Notes Start: 09/11/21 10:03 Freq: Status: Active Protocol: Activity Type Activity Date Activity User E-Sign Co-Sign Detail Recorded Client Recorded Date Recorded By Document 09/11/21 10:49 MW [id number] 09/11/21 11:00 MW Document 09/25/21 11:20 MW [id number] 09/25/21 11:27 MW 09/11/21 09/25/21 10:49 11:20 Wound Center Nurse 2 #14- R POST THIGH -Time 10:49 11:25 -Correct Patient Yes Yes -Correct Side, Site, Position Yes Yes -Correct Procedure Yes Yes -Procedure Performed Yes Yes -Type of Procedure Debridement Debridement -Clinical Debridement Subcutaneous Subcutaneous -Tissue Removed Subcutaneous Subcutaneous -Post Debridement (cm) - Length 0.1 0.2 -Post Debridement (cm) - Width 0.4 0.6 -Post Debridement (cm) - Depth 0.2 0.5 -Total Square (Post) (cm) 0.04 0.12 -Area of Debridement (cm) - Length 0.1 0.2 -Area of Debridement (cm) - Width 0.4 0.6 -Total Square (Area) (cm) 0.04 0.12 -Tunneling No No -Undermining/Tunneling No No -Circular Undermining No No -Wound/Ulcer Outcome Not Healed Not Healed -Ulcer Cleansing Rinsed/ Rinsed/ Irrigated with Irrigated with Saline Saline -Foul Odor after Cleansing No No -Bioengineered Tissue No No -Bleeding Controlled with Pressure Pressure -Offloading No No -Treatment Response Procedure Procedure Tolerated Well Tolerated Well -Debridement - Subq, 1st 20sq cm Yes Yes #13- L GROIN -Time 10:53 11:25 -Correct Patient Yes Yes -Correct Side, Site, Position Yes Yes -Correct Procedure Yes Yes -Procedure Performed No No -Post Debridement (cm) - Length 0.1 -Post Debridement (cm) - Width 0.1 -Post Debridement (cm) - Depth 0.1 -Total Square (Post) (cm) 0.01 -Tunneling No -Undermining/Tunneling No -Circular Undermining No -Wound/Ulcer Outcome Not Healed Not Healed #12 R GROIN -Time 10:53 11:27 -Correct Patient Yes Yes -Correct Side, Site, Position Yes Yes -Correct Procedure Yes Yes -Procedure Performed No No -Post Debridement (cm) - Length 0.1 -Post Debridement (cm) - Width 0.1 -Post Debridement (cm) - Depth 0.1 -Total Square (Post) (cm) 0.01 -Tunneling No No -Undermining/Tunneling No No -Circular Undermining No No -Wound/Ulcer Outcome Not Healed Not Healed -Ulcer Cleansing Rinsed/ Irrigated with Saline -Foul Odor after Cleansing No -Bioengineered Tissue No -Bleeding Controlled with NA -Offloading No Pain Scale: 0-10 Numeric Is Patient Pain Free? Yes WC - Nurse 3 - General Ulcer D/C NN Start: 09/11/21 10:03 Freq: Status: Active Protocol: Activity Type Activity Date Activity User E-Sign Co-Sign Detail Recorded Client Recorded Date Recorded By Document 09/11/21 14:35 KR Desktop 09/11/21 14:36 KR Document 09/25/21 11:29 MW [id number] 09/25/21 11:32 MW 09/11/21 09/25/21 14:35 11:29 Wound Care Nurse 3 #14- R POST THIGH -Ulcer Cleansing Rinsed/ Rinsed/ Irrigated with Irrigated with Saline Saline -Foul Odor after Cleansing No -Negative Pressure Wound Therapy N/A -Primary Dressing Applied Promogran Nugauze, Iodoform -Primary Dressing Covered/Secured with Dry Gauze, Dry Gauze, Secured with Secured with Tape Tape -Nugauze, Iodoform / 1 -Promogran 1 #13- L GROIN -Ulcer Cleansing Rinsed/ Rinsed/ Irrigated with Irrigated with Saline Saline -Primary Dressing Applied NonAdherent Contact Layer -Primary Dressing Covered/Secured with Dry Gauze, Secured with Tape -Other Covering no dressing today per patient request #12 R GROIN -Ulcer Cleansing Rinsed/ Irrigated with Saline -Primary Dressing Covered/Secured with Dry Gauze, Secured with Tape -Other Covering no dressing today per patient request Treatment Response Procedure Tolerated Well Pain Scale: 0-10 Numeric Is Patient Pain Free? Yes Yes Teaching: Wound Center Dressing Your Wound -Person Taught Patient -Teaching Method Discussion -Response to teaching Verbalize understanding WC - Visit Discharge Discharge Condition Stable Stable Ambulatory Status Ambulatory Ambulatory Transportation Private Auto Private Auto Accompanied by self Medication Reconcilliation completed & No provided to patient/care provider Clinical Summary of Care Provided Yes Assessment/Plan Assessment/Plan (1) Non-healing surgical wound: CODE(S): T81.89XA - Other complications of procedures, not elsewhere classified, initial encounter QUALIFIERS: Encounter type: subsequent encounter Qualified Code(s): T81.89XD - Other complications of procedures, not elsewhere classified, subsequent encounter PLAN: Wash area with antibacterial soap and pack with iodoform gauze quarter inch. Into wound base cover with gauze and tape every day Patient is to return in 1 weeks (2) Sebaceous cyst: CODE(S): L72.3 - Sebaceous cyst (3) Hidradenitis suppurativa: CODE(S): L73.2 - Hidradenitis suppurativa PLAN: Wash areas with antibacterial soap apply Xeroform with gauze and wear either tightfitting long longer underwear to hold dressings in place. Also suggested may be wearing bikers pants that are have Lycra in it to hold in place. He should talk to his family doctor to talk to rheumatology about going on injections of Humira for treatment to help dry them up. Patient was also written a note for school because he has to drop out because of all the dressing changes and drainage he is having it is hard for him to sit in class.
== END 2021-10-08 23:59 ==
LOC: WC 10:30
PROVIDERS: PCP Internal Medicine; Visit Provider Nurse Practitioner
DX: T81.89XD Other complications of procedures, not elsewhere classified, subsequent encounter (principal); L72.3 Sebaceous cyst; L73.2 Hidradenitis suppurativa; E11.9 Type 2 diabetes mellitus without complications; H81.09 Meniere's disease, unspecified ear; F17.200 Nicotine dependence, unspecified, uncomplicated; Z79.84 Long term (current) use of oral hypoglycemic drugs
CPT/HCPCS: 11042; 99213; G0463

== ENCOUNTER → 2021-09-27 10:58 | Outpatient (CLI) | payer OTHER, SELFPAY ==
[2021-09-27 12:17] LABS: Microalbumin,Random Urine 8.6 mg/L (NO RANGE EST.); Microalbumin:Creatinine Ratio 5.7 mg/g CRE (<30 mg/g CRE)
[2021-09-27 12:53] LABS: AST(SGOT) 18 U/L (15-37); Alanine Aminotransfer ALT/SGPT 50 U/L (16-61); Albumin, Serum 3.7 g/dL (3.2-5.0); Alkaline Phosphatase 89 U/L (45-117); Anion Gap 5 (5-15); BUN 17 mg/dL (7-18); BUN/Creat Ratio 18.7 RATIO (10-20); Chloride 109 mmol/L (98-107); Creatinine, Serum 0.91 mg/dL (0.70-1.30); EST Glomerular Filtration Rate 99 mL/min (>60); Est Glom Filt Rate - Afr Amer 120 mL/min (>60); Globulin 3.7 g/dL (2.2-4.2); Glucose 162 mg/dL (74-106); Potassium 4.1 mmol/L (3.5-5.1); Protein, Total 7.4 g/dL (6.4-8.2); Sodium Level 139 mmol/L (136-145)
[2021-09-27 12:53] LABS: Vitamin D,25 Hydroxy 40.6 ng/mL
[2021-09-27 13:15] LABS: ALB/GLOB Ratio 0.9 RATIO (0.9-2.4); AST(SGOT) 18 U/L (15-37); Alanine Aminotransfer ALT/SGPT 50 U/L (16-61); Albumin, Serum 3.5 g/dL (3.2-5.0); Alkaline Phosphatase 89 U/L (45-117); Anion Gap 5 (5-15); BUN 18 mg/dL (7-18); BUN/Creat Ratio 19.6 RATIO (10-20); Calcium,Total 8.9 mg/dL (8.5-10.1); Chloride 107 mmol/L (98-107); Cholesterol 177 mg/dL (200); Creatinine, Serum 0.92 mg/dL (0.70-1.30); EST Glomerular Filtration Rate 98 mL/min (>60); Est Glom Filt Rate - Afr Amer 119 mL/min (>60); Globulin 4.1 g/dL (2.2-4.2); Glucose 158 mg/dL (74-106); High Density Lipoprotein 37 mg/dL; Potassium 4.2 mmol/L (3.5-5.1); Protein, Total 7.6 g/dL (6.4-8.2); Sodium Level 139 mmol/L (136-145); Thyroid Stim Hormone (TSH) 1.59 uIU/mL (0.358-3.74); Triglycerides 194 mg/dL; Very Low Density Lipoprotein 39 mg/dL (5-40)
[2021-09-27 13:26] LABS: HIV - WCH Non-Reactive (Nonreactive); Hepatitis B Surface Antibody Non-Reactive; Hepatitis B Surface Antigen Non-Reactive (Nonreactive); Hepatitis C Antibody Non-Reactive (Nonreactive)
[2021-10-02 17:07] LABS: Hepatitis B Core Ab Total Negative (Negative); QNTFERON TB Mitogen Value > 10.00 IU/mL (.); QNTFERON TB Nil Value 0.06 IU/mL (.); QNTFERON TB1+ Ag Value 0.41 IU/mL (.); QNTFERON TB2+ Ag Value 0.38 IU/mL (.)
[2021-10-02 22:55] LABS: Hepatitis A IgM Antibody Negative (Negative)
[2021-10-02 22:56] LABS: QNTIFERON TB Positive Criteria Negative (Negative)
== END ==
PROVIDERS: Nurse Practitioner Family; PCP Internal Medicine
DX: L73.2 Hidradenitis suppurativa (principal); L72.8 Other follicular cysts of the skin and subcutaneous tissue; Z79.899 Other long term (current) drug therapy
CPT/HCPCS: 36415; 80053; 80061; 82043; 82306; 82570; 84443; 86480; 86703; 86704; 86706; 86709; 86803; 87340

== ENCOUNTER 2021-10-16 10:30 | Outpatient (RCR) | payer OTHER, SELFPAY ==
[2021-10-09 00:10] VITALS: BP 125/84; PULSE 94; RESP 16; TEMP 37.1; BMI 31.6
[2021-10-09 10:37] VITALS: BP 140/85; PULSE 86; RESP 20; TEMP 36.6; BMI 31.6
--- NOTE | 2021-10-09 11:10 | PN.PCM_ITS ---
History of Present Illness Date of Service: 10/09/21 Chief Complaint: Follow-up on his right posterior thigh sebaceous cyst Also complaining that the hidradenitis in the groin bilaterally are draining intermittently History of Wound: Patient has history of hidradenitis and has had surgery on his abdomen for removal. The ones in the groin have not been removed and are constant annoyance to him. He states he has to wear Depends because of the drainage problem. He is requesting for him to use to help dry them up. Posterior right thigh August 24 was in the emergency room for a infected hair follicle. The area was incised and drained well now he has a small slit that is healing slowly, with no sign of infection. Progress of Wound: The hidradenitis is her mostly healed he sees the rehabilitation caseworker tomorrow. Right posterior thigh still open same size. Subjective Subjective Patient states had a seizure on and is getting a work-up with his primary care doctor. His relative told him that the tramadol probably lowers the threshold for his seizure medication so he has to stop the tramadol for pain. He is upset because that really works. Suggested he switch to Aleve and Tylenol for pain until he seen by dermatology. Objective Data Objective Data Open posterior upper right thigh is about the same size debrided is just not filling in well more padding it and were packing it with iodoform gauze also. No sign of infection the skin is supple other than a slit in his skin Vital Signs: Vital Signs Temp Pulse Resp BP 98 F 86 20 H 140/85 H 10/09/21 10:37 10/09/21 10:37 10/09/21 10:37 10/09/21 10:37 Weight: 202 lb Body Mass Index (BMI) 31.6 Lab / Micro Data Attestation: I reviewed the patient's lab results. Physical Exam Const oriented x3 General Appearance: cooperative Exam Limitations: no limitations Resp normal respiratory effort Effort and Inspection: able to speak in complete sentences Auscultation: clear to auscultation bilaterally Cardio regular rate and regular rhythm Palpation: normal PMI Rate: regular rate Rhythm: regular rhythm GI Auscultation: normoactive bowel sounds Palpation: soft and no hepatosplenomegaly external exam normal Extremity normal to inspection General Extremity: normal exam except as noted Skin General Skin Exam: other Hidradenitis bilateral groin with small pinhole drainage Posterior right thigh surgical I&D nonhealing ulcer Neuro oriented x3 Psych Appearance: grossly normal Speech: normal speech Thought Content: normal thought content Judgement: judgement good Debridement Note Debridement Note Post-Debridement Measurements and Additional Note: Post-Debridement Measurements/Treatment WC - Nurse 1 - General Ulcer Assessment Start: 10/09/21 10:35 Freq: Status: Active Protocol: DESMOND Activity Type Activity Date Activity User E-Sign Co-Sign Detail Recorded Client Recorded Date Recorded By Document 10/09/21 10:37 DL [id number] 10/09/21 10:45 DL 10/09/21 10:37 WC - Today's Visit Information Type of service 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 ) Arrival Mode Ambulatory Transfer Assistance None Patient Identification Verified (Name & Yes ) Patient Requires Transmission-Based No Precautions Finger Stick Blood Sugar(mg/dl) (if 109 indicated): Blood Sugar Stated by Patient Height and Weight Body Mass Index (BMI) 31.6 BMI Classification Obese Vital Signs Temperature (97.8 F-99.1 F) 98 F Temperature Source Temporal Pulse Rate (60-100) 86 Pulse Location Monitor Respiratory Rate (12-18) 20 H Respiratory rate source Observation Blood Pressure (90/60-120/80) 140/85 H Blood Pressure Mean (mm Hg) 103 Source Monitor History Since Last Visit- (Skip if this is Patient's initial visit) Have you changed medications since your No last visit? Any new allergies or adverse reactions No Had a fall/change in ADL's that may No increase risk of falls Signs or symptoms of abuse and/or No neglect since last visit Have you been in the hospital since your No last visit? Has dressing in place as prescribed Yes Has compression in place as prescribed N/A Has offloadiing in place as prescribed N/A Experienced any changes in pain level or No management Pain Scale: 0-10 Numeric Is Patient Pain Free? Yes - Nurse 1 - General Ulcer Measurement Start: 10/09/21 10:35 Freq: Status: Active Protocol: Activity Type Activity Date Activity User E-Sign Co-Sign Detail Recorded Client Recorded Date Recorded By Document 10/09/21 10:37 DL [id number] 10/09/21 10:45 DL 10/09/21 10:37 Wound Center Nurse 1 #14- R POST THIGH -Current Size (cm) - Length 0.5 -Current Size (cm) - Width 0.2 -Current Size (cm) - Depth 0.4 -Total Square Cm 0.10 -Photo Taken No -Exudate Amt Small -Exudate Type Purulent -Wound Margin Distinct, Outline Attached -Granulation Amt Small (1-33%) -Granulation Quality Red -Necrosis Amt None Present (0 %) -Structure Exposed N/A -Texture (Kassandra-wound Skin Appearance) Scarring -Moisture (Kassandra-wound Skin Appearance) No Abnormality -Color (Kassandra-wound Skin Appearance) No Abnormality -Temperature (Kassandra-wound Skin No Abnormality Appearance) (Pt Warm) -Tenderness on Palpation (Kassandra-wound No Skin Appearance) -Ulcer Cleansing Soap and Water -Foul Odor after Cleansing No -Anesthetic Used 4% Lidocaine Solution #13- L GROIN -Current Size (cm) - Length 0.1 -Current Size (cm) - Width 0.1 -Current Size (cm) - Depth 0.1 -Total Square Cm 0.01 -Photo Taken No -Exudate Amt None Present -Wound Margin Indistinct, Non -Visible -Granulation Amt None Present (0 %) -Necrosis Amt None Present (0 %) -Structure Exposed N/A -Texture (Kassandra-wound Skin Appearance) Scarring -Color (Kassandra-wound Skin Appearance) Ecchymosis -Temperature (Kassandra-wound Skin No Abnormality Appearance) (Pt Warm) -Tenderness on Palpation (Kassandra-wound No Skin Appearance) -Ulcer Cleansing Soap and Water -Foul Odor after Cleansing No #12 R GROIN -Current Size (cm) - Length 0.2 -Current Size (cm) - Width 0.2 -Current Size (cm) - Depth 0.4 -Total Square Cm 0.04 -Photo Taken No -Exudate Amt Small -Exudate Type Sanguineous -Wound Margin Distinct, Outline Attached -Granulation Amt None Present (0 %) -Necrosis Amt None Present (0 %) -Structure Exposed N/A -Texture (Kassandra-wound Skin Appearance) Localized Edema -Moisture (Kassandra-wound Skin Appearance) No Abnormality -Color (Kassandra-wound Skin Appearance) Ecchymosis -Tenderness on Palpation (Kassandra-wound No Skin Appearance) -Ulcer Cleansing Soap and Water -Foul Odor after Cleansing No -Anesthetic Used 4% Lidocaine Solution WC - Nurse 2 - General Ulcer CM Notes Start: 10/09/21 10:35 Freq: Status: Active Protocol: Activity Type Activity Date Activity User E-Sign Co-Sign Detail Recorded Client Recorded Date Recorded By Document 10/09/21 10:57 MW [id number] 10/09/21 11:02 MW 10/09/21 10:57 Wound Center Nurse 2 #14- R POST THIGH -Time 10:58 -Correct Patient Yes -Correct Side, Site, Position Yes -Correct Procedure Yes -Procedure Performed No -Type of Procedure Debridement -Clinical Debridement Subcutaneous -Tissue Removed Subcutaneous -Post Debridement (cm) - Length 0.1 -Post Debridement (cm) - Width 0.5 -Post Debridement (cm) - Depth 0.4 -Total Square (Post) (cm) 0.05 -Area of Debridement (cm) - Length 0.1 -Area of Debridement (cm) - Width 0.5 -Total Square (Area) (cm) 0.05 -Tunneling No -Undermining/Tunneling No -Circular Undermining No -Wound/Ulcer Outcome Not Healed -Ulcer Cleansing Rinsed/ Irrigated with Saline -Foul Odor after Cleansing No -Bioengineered Tissue No -Bleeding Controlled with Pressure -Offloading No -Treatment Response Procedure Tolerated Well -Debridement - Subq, 1st 20sq cm Yes #13- L GROIN -Time 11:00 -Correct Patient Yes -Correct Side, Site, Position Yes -Correct Procedure Yes -Procedure Performed No -Post Debridement (cm) - Length 0 -Post Debridement (cm) - Width 0 -Post Debridement (cm) - Depth 0 -Total Square (Post) (cm) 0 -Wound/Ulcer Outcome Healed- Epithelialized #12 R GROIN -Time 11:00 -Correct Patient Yes -Correct Side, Site, Position Yes -Correct Procedure Yes -Procedure Performed No -Post Debridement (cm) - Length 0 -Post Debridement (cm) - Width 0 -Post Debridement (cm) - Depth 0 -Total Square (Post) (cm) 0 -Wound/Ulcer Outcome Healed- Epithelialized Pain Scale: 0-10 Numeric Is Patient Pain Free? Yes Additional Wound Wound debrided: Right posterior thigh surgical nonhealing Type of Debridement: Excisional debridement Anesthesia Used: 5% Lidocaine Gel Depth: in the subcutaneous layer Percentage of wound debrided: 100 Instrument Used: 3mm curette Tissue Removed: Fibrin Severity: Fat Layer Exposed Amount of bleeding with debridement: None Bleeding Controlled with: Compression and gauze Patient tolerated procedure: Patient tolerated procedure well Assessment/Plan Assessment/Plan (1) Non-healing surgical wound: CODE(S): T81.89XA - Other complications of procedures, not elsewhere classified, initial encounter QUALIFIERS: Encounter type: subsequent encounter Qualified Code(s): T81.89XD - Other complications of procedures, not elsewhere classified, subsequent encounter PLAN: Wash area with antibacterial soap and pack with iodoform gauze quarter inch. Into wound base cover with gauze and tape every day Patient is to return in 1 weeks (2) Sebaceous cyst: CODE(S): L72.3 - Sebaceous cyst (3) Hidradenitis suppurativa: CODE(S): L73.2 - Hidradenitis suppurativa PLAN: Wash areas with antibacterial soap apply Xeroform with gauze and wear either tightfitting long longer underwear to hold dressings in place. Also suggested may be wearing bikers pants that are have Lycra in it to hold in place. He should talk to his family doctor to talk to rheumatology about going on injections of Humira for treatment to help dry them up. Patient was also written a note for school because he has to drop out because of all the dressing changes and drainage he is having it is hard for him to sit in class.
[2021-10-16 10:36] VITALS: BP 129/70; PULSE 93; TEMP 36.1; BMI 31.6
--- NOTE | 2021-10-16 12:08 | PCM.WC.PN ---
History of Present Illness Date of Service: 10/16/21 Chief Complaint: Follow-up on his right posterior thigh sebaceous cyst Also complaining that the hidradenitis in the groin bilaterally are draining intermittently History of Wound: Patient has history of hidradenitis and has had surgery on his abdomen for removal. The ones in the groin have not been removed and are constant annoyance to him. He states he has to wear Depends because of the drainage problem. He is requesting for him to use to help dry them up. Posterior right thigh August 24 was in the emergency room for a infected hair follicle. The area was incised and drained well now he has a small slit that is healing slowly, with no sign of infection. Progress of Wound: The hidradenitis is her mostly healed he sees the nutrition program instructor tomorrow to be started on Humira. Right posterior thigh still open slightly smaller. He states he received 4 shots this last week for Humira and next week he received 2 more injections it seems to be helping all of his wounds. Subjective Subjective Patient is pleased he is finally getting the Humira injections Objective Data Objective Data Continuing packing with the quarter inch iodoform seems to be getting smaller but it still there the Humira shots will help to with healing. Vital Signs: Vital Signs Temp Pulse Resp BP 97.0 F L 93 20 H 129/70 H 10/16/21 10:36 10/16/21 10:36 10/09/21 10:37 10/16/21 10:36 Weight: 202 lb Body Mass Index (BMI) 31.6 Physical Exam Const oriented x3 General Appearance: cooperative Exam Limitations: no limitations Resp normal respiratory effort Effort and Inspection: able to speak in complete sentences Auscultation: clear to auscultation bilaterally Cardio regular rate and regular rhythm Palpation: normal PMI Rate: regular rate Rhythm: regular rhythm GI Auscultation: normoactive bowel sounds Palpation: soft and no hepatosplenomegaly external exam normal Extremity normal to inspection General Extremity: normal exam except as noted Skin General Skin Exam: other Hidradenitis bilateral groin with small pinhole drainage Posterior right thigh surgical I&D nonhealing ulcer Neuro oriented x3 Psych Appearance: grossly normal Speech: normal speech Thought Content: normal thought content Judgement: judgement good Debridement Note Debridement Note Wound debrided: Right posterior thigh surgical wound Type of Debridement: Excisional debridement Anesthesia Used: 5% Lidocaine Gel Depth: Down to and including healthy tissue Percentage of wound debrided: 100 Instrument Used: 3mm curette Tissue Removed: Fibrin Severity: Fat Layer Exposed Amount of bleeding with debridement: None Bleeding Controlled with: Compression and gauze Patient tolerated procedure: Patient tolerated procedure well Post-Debridement Measurements and Additional Note: Post-Debridement Measurements/Treatment WC - Nurse 1 - General Ulcer Assessment Start: 10/09/21 10:35 Freq: Status: Active Protocol: DESMOND Activity Type Activity Date Activity User E-Sign Co-Sign Detail Recorded Client Recorded Date Recorded By Document 10/09/21 10:37 DL [id number] 10/09/21 10:45 DL Document 10/16/21 10:36 KR [id number] 10/16/21 10:37 KR 10/09/21 10/16/21 10:37 10:36 WC - Today's Visit Information Type of service Follow-up Visit Follow-up Visit (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 (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 ) ) Arrival Mode Ambulatory Ambulatory Transfer Assistance None Patient Identification Verified (Name & Yes Yes ) Patient Requires Transmission-Based No Precautions Finger Stick Blood Sugar(mg/dl) (if 109 indicated): Blood Sugar Stated by Patient Height and Weight Body Mass Index (BMI) 31.6 31.6 BMI Classification Obese Obese Vital Signs Temperature (97.8 F-99.1 F) 98 F 97.0 F L Temperature Source Temporal Temporal Pulse Rate (60-100) 86 93 Pulse Location Monitor Monitor Respiratory Rate (12-18) 20 H Respiratory rate source Observation Blood Pressure (90/60-120/80) 140/85 H 129/70 H Blood Pressure Mean (mm Hg) 103 89 Source Monitor Monitor Position Sitting Blood Pressure Location Right Arm History Since Last Visit- (Skip if this is Patient's initial visit) Have you changed medications since your No No last visit? Any new allergies or adverse reactions No No Had a fall/change in ADL's that may No No increase risk of falls Signs or symptoms of abuse and/or No No neglect since last visit Have you been in the hospital since your No No last visit? Has dressing in place as prescribed Yes Yes Has compression in place as prescribed N/A N/A Has offloadiing in place as prescribed N/A N/A Experienced any changes in pain level or No No management Left Footwear Regular Shoe Right Footwear Regular Shoe Pain Scale: 0-10 Numeric Is Patient Pain Free? Yes Yes WC - Nurse 1 - General Ulcer Measurement Start: 10/09/21 10:35 Freq: Status: Active Protocol: Activity Type Activity Date Activity User E-Sign Co-Sign Detail Recorded Client Recorded Date Recorded By Document 10/09/21 10:37 DL [id number] 10/09/21 10:45 DL Document 10/16/21 10:36 KR [id number] 10/16/21 10:37 KR 10/09/21 10/16/21 10:37 10:36 Wound Center Nurse 1 #14- R POST THIGH -Current Size (cm) - Length 0.5 0.1 -Current Size (cm) - Width 0.2 0.4 -Current Size (cm) - Depth 0.4 0.3 -Total Square Cm 0.10 0.04 -Photo Taken No -Exudate Amt Small -Exudate Type Purulent -Wound Margin Distinct, Distinct, Outline Outline Attached Attached -Granulation Amt Small (1-33%) Small (1-33%) -Granulation Quality Red [place] -Necrosis Amt None Present (0 None Present (0 %) %) -Structure Exposed N/A -Texture (Kassandra-wound Skin Appearance) Scarring Assessed, Scarring -Moisture (Kassandra-wound Skin Appearance) No Abnormality Assessed,Dry/ Scaly -Color (Kassandra-wound Skin Appearance) No Abnormality No Abnormality, Assessed -Temperature (Kassandra-wound Skin No Abnormality No Abnormality Appearance) (Pt Warm) (Pt Warm) -Tenderness on Palpation (Kassandra-wound No No Skin Appearance) -Ulcer Cleansing Soap and Water Rinsed/ Irrigated with Saline -Foul Odor after Cleansing No -Anesthetic Used 4% Lidocaine 5% Lidocaine Solution Gel #13- L GROIN -Current Size (cm) - Length 0.1 -Current Size (cm) - Width 0.1 -Current Size (cm) - Depth 0.1 -Total Square Cm 0.01 -Photo Taken No -Exudate Amt None Present -Wound Margin Indistinct, Non -Visible -Granulation Amt None Present (0 %) -Necrosis Amt None Present (0 %) -Structure Exposed N/A -Texture (Kassandra-wound Skin Appearance) Scarring -Color (Kassandra-wound Skin Appearance) Ecchymosis -Temperature (Kassandra-wound Skin No Abnormality Appearance) (Pt Warm) -Tenderness on Palpation (Kassandra-wound No Skin Appearance) -Ulcer Cleansing Soap and Water -Foul Odor after Cleansing No #12 R GROIN -Current Size (cm) - Length 0.2 -Current Size (cm) - Width 0.2 -Current Size (cm) - Depth 0.4 -Total Square Cm 0.04 -Photo Taken No -Exudate Amt Small -Exudate Type Sanguineous -Wound Margin Distinct, Outline Attached -Granulation Amt None Present (0 %) -Necrosis Amt None Present (0 %) -Structure Exposed N/A -Texture (Kassandra-wound Skin Appearance) Localized Edema -Moisture (Kassandra-wound Skin Appearance) No Abnormality -Color (Kassandra-wound Skin Appearance) Ecchymosis -Tenderness on Palpation (Kassandra-wound No Skin Appearance) -Ulcer Cleansing Soap and Water -Foul Odor after Cleansing No -Anesthetic Used 4% Lidocaine Solution WC - Nurse 2 - General Ulcer CM Notes Start: 10/09/21 10:35 Freq: Status: Active Protocol: Activity Type Activity Date Activity User E-Sign Co-Sign Detail Recorded Client Recorded Date Recorded By Document 10/09/21 10:57 MW [id number] 10/09/21 11:02 MW 10/09/21 10:57 Wound Center Nurse 2 -Time 10:58 -Correct Patient Yes -Correct Side, Site, Position Yes -Correct Procedure Yes -Procedure Performed No -Type of Procedure Debridement -Clinical Debridement Subcutaneous -Tissue Removed Subcutaneous -Post Debridement (cm) - Length 0.1 -Post Debridement (cm) - Width 0.5 -Post Debridement (cm) - Depth 0.4 -Total Square (Post) (cm) 0.05 -Area of Debridement (cm) - Length 0.1 -Area of Debridement (cm) - Width 0.5 -Total Square (Area) (cm) 0.05 -Tunneling No -Undermining/Tunneling No -Circular Undermining No -Wound/Ulcer Outcome Not Healed -Ulcer Cleansing Rinsed/ Irrigated with Saline -Foul Odor after Cleansing No -Bioengineered Tissue No -Bleeding Controlled with Pressure -Offloading No -Treatment Response Procedure Tolerated Well -Debridement - Subq, 1st 20sq cm Yes #13- L GROIN -Time 11:00 -Correct Patient Yes -Correct Side, Site, Position Yes -Correct Procedure Yes -Procedure Performed No -Post Debridement (cm) - Length 0 -Post Debridement (cm) - Width 0 -Post Debridement (cm) - Depth 0 -Total Square (Post) (cm) 0 -Wound/Ulcer Outcome Healed- Epithelialized #12 R GROIN -Time 11:00 -Correct Patient Yes -Correct Side, Site, Position Yes -Correct Procedure Yes -Procedure Performed No -Post Debridement (cm) - Length 0 -Post Debridement (cm) - Width 0 -Post Debridement (cm) - Depth 0 -Total Square (Post) (cm) 0 -Wound/Ulcer Outcome Healed- Epithelialized Pain Scale: 0-10 Numeric Is Patient Pain Free? Yes - Nurse 3 - General Ulcer D/C NN Start: 10/09/21 10:35 Freq: Status: Active Protocol: Activity Type Activity Date Activity User E-Sign Co-Sign Detail Recorded Client Recorded Date Recorded By Document 10/09/21 11:10 [id number] 10/09/21 11:11 10/09/21 11:10 Wound Care Nurse 3 #14- R POST THIGH -Other Dressing iodofoam -Primary Dressing Covered/Secured with Dry Gauze, Secured with Tape Pain Scale: 0-10 Numeric Is Patient Pain Free? Yes - Visit Discharge Discharge Condition Stable Ambulatory Status Ambulatory Transportation Private Auto Assessment/Plan Assessment/Plan (1) Non-healing surgical wound: CODE(S): T81.89XA - Other complications of procedures, not elsewhere classified, initial encounter QUALIFIERS: Encounter type: subsequent encounter Qualified Code(s): T81.89XD - Other complications of procedures, not elsewhere classified, subsequent encounter PLAN: Wash area with antibacterial soap and pack with iodoform gauze quarter inch. Into wound base cover with gauze and tape every day Patient is to return in 1 weeks (2) Sebaceous cyst: CODE(S): L72.3 - Sebaceous cyst (3) Hidradenitis suppurativa: CODE(S): L73.2 - Hidradenitis suppurativa PLAN: Wash areas with antibacterial soap apply Xeroform with gauze and wear either tightfitting long longer underwear to hold dressings in place. Also suggested may be wearing bikers pants that are have Lycra in it to hold in place. He should talk to his family doctor to talk to rheumatology about going on injections of Humira for treatment to help dry them up. Patient was also written a note for school because he has to drop out because of all the dressing changes and drainage he is having it is hard for him to sit in class.
== END 2021-11-05 10:15 | disposition home or self-care (01) ==
LOC: WC 10:30
PROVIDERS: PCP Internal Medicine; Visit Provider Nurse Practitioner
DX: T81.89XD Other complications of procedures, not elsewhere classified, subsequent encounter (principal); L73.2 Hidradenitis suppurativa; L72.3 Sebaceous cyst
CPT/HCPCS: 11042

== ENCOUNTER → 2023-03-23 | Outpatient (CLI) | payer OTHER, SELFPAY ==
[2023-03-23 16:20] LABS: Hemoglobin A1c 8.1 % (3.8-5.6)
[2023-03-23 16:34] LABS: AST(SGOT) 25 U/L (15-37); Alanine Aminotransfer ALT/SGPT 56 U/L (16-61); Albumin, Serum 3.9 g/dL (3.2-5.0); Alkaline Phosphatase 105 U/L (45-117); Anion Gap 10 (5-15); BUN 13 mg/dL (7-18); BUN/Creat Ratio 12.9 RATIO (10-20); Calcium,Total 9.1 mg/dL (8.5-10.1); Chloride 103 mmol/L (98-107); Cholesterol 170 mg/dL (200); Creatinine, Serum 1.01 mg/dL (0.70-1.30); EST Glomerular Filtration Rate 87 mL/min (>60); Est Glom Filt Rate - Afr Amer 106 mL/min (>60); Globulin 3.8 g/dL (2.2-4.2); Glucose 234 mg/dL (74-106); High Density Lipoprotein 37 mg/dL; Potassium 3.9 mmol/L (3.5-5.1); Protein, Total 7.7 g/dL (6.4-8.2); Sodium Level 138 mmol/L (136-145); Thyroid Stim Hormone (TSH) 1.08 uIU/mL (0.358-3.74); Triglycerides 231 mg/dL; Very Low Density Lipoprotein 46 mg/dL (5-40)
[2023-03-23 16:39] LABS: Microalbumin,Random Urine < 5.0 mg/L (NO RANGE EST.)
[2023-03-23 17:32] LABS: Vitamin D,25 Hydroxy 62.4 ng/mL
== END | disposition home or self-care (01) ==
LOC: LAB 14:54
PROVIDERS: PCP Internal Medicine; Referring Provider Nurse Practitioner Family; Visit Provider Nurse Practitioner Family
DX: E11.9 Type 2 diabetes mellitus without complications (principal)
CPT/HCPCS: 36415; 80053; 80061; 82043; 82306; 82570; 83036; 84443

== ENCOUNTER 2023-09-01 18:28 | Emergency (ER) | payer OTHER, SELFPAY ==
[2023-09-01 18:28] VITALS: BP 122/84; PULSE 92; RESP 12; O2SAT 98
[2023-09-01 18:29] VITALS: BP 136/89; PULSE 112; RESP 18; TEMP 36; O2SAT 100; BMI 29.1
--- NOTE | 2023-09-01 19:39 | EX.ED.DYSGE1 ---
HPI History of Present Illness Chief Complaint: Fatigue Informant: patient and spouse/S.O. Narrative Narrative: Patient presents secondary to fatigue and weight loss. He states he was at work today when he felt very fatigued and would get warm hot flushes over the upper half of his body. Similarly his lower extremities would feel cold and tingly. He states he felt near syncopal and had to leave work early. 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 He has had some very mild nausea but no vomiting. He denies chest pain or abdominal pain. Patient has had a headache for the past 3 weeks. He was initially seen at [facility] where work-up was unremarkable. He was started on metoprolol and Topamax. He continues to have a mild headache. He was seen by his PCP on Thursday who was concerned about this ongoing headache as well as a 19 pound weight loss in 17 days. Lab work as well as CT scans were ordered, however they are still pending approval by insurance. When the symptoms started today they decided to present to the emergency room for work-up. [facility] Medical History (Updated 09/01/23 @ 22:[address] Shalonda Kincaid MD) Back problem Diabetes Fatty liver Hearing problem Hidradenitis Meniere's disease Recurrent infections Tobacco dependence Vitamin deficiency Home Medications omeprazole 20 mg capsule,delayed release 20 mg PO DAILY 06/10/19 [History Last Taken 01/02/20 09:00] flash glucose scanning reader (FreeStyle [address] [place]) #1 ea 07/27/20 [Rx Last Taken Unknown] calcium carbonate 600 mg calcium (1,500 mg) tablet 600 mg PO DAILY 09/11/21 [History Last Taken Unknown] adalimumab 80 mg/0.8 mL subcutaneous pen kit (Humira(CF) Pen) 80 mg subcut Q14D 09/22/22 [History Last Taken Unknown] dapagliflozin propanediol 10 mg tablet (Farxiga) 10 mg PO DAILY #90 tabs 09/22/22 [Rx Last Taken Unknown] metformin 850 mg tablet 850 mg PO DAILY #90 tabs 09/22/22 [Rx Last Taken Unknown] flash glucose sensor (FreeStyle [address] Sensor kit) #2 ea 03/23/23 [Rx Last Taken Unknown] glimepiride 1 mg tablet 1 mg PO DAILY #30 tabs 08/20/23 [Rx Last Taken Unknown] amitriptyline 10 mg tablet 10 mg PO QHS 09/01/23 [History Last Taken Unknown] atorvastatin 10 mg tablet 10 mg PO QHS HYPERLIPIDEMIA 09/01/23 [History Last Taken Unknown] cephalexin 500 mg capsule 500 mg PO .QID ABCESS 09/01/23 [History Last Taken Unknown] cholecalciferol (vitamin D3) 25 mcg (1,000 unit) chewable tablet (VitaJoy Daily D) 25 mcg PO DAILY 09/01/23 [History Last Taken Unknown] clindamycin HCl 300 mg capsule 300 mg PO TID 09/01/23 [History Last Taken Unknown] gabapentin 300 mg capsule 300 mg PO TID 09/01/23 [History Last Taken Unknown] hydrochlorothiazide 25 mg tablet 25 mg PO DAILY 09/01/23 [History Last Taken Unknown] metoprolol succinate 25 mg tablet,extended release 24 hr 25 mg PO DAILY 09/01/23 [History Last Taken Unknown] omega-3 fatty acids 1 cap PO 09/01/23 [History Last Taken Unknown] topiramate 50 mg tablet (Topamax) 50 mg PO DAILY 09/01/23 [History Last Taken Unknown] Allergy/AdvReac Type Severity Reaction Status Date / Time sulfamethoxazole Allergy Severe BODY RASH Verified 09/01/23 18:30 [From Bactrim] tramadol Allergy Severe Other Verified 09/01/23 18:30 trimethoprim [From Bactrim] Allergy Severe BODY RASH Verified 09/01/23 18:30 Family History Uncle Alcohol abuse Aunt Alcohol abuse Grandfather Alcohol abuse Sister Anemia Anxiety Diabetes Mother Anemia Diabetes Heart disease CVA (cerebral vascular accident) Father Bone cancer COPD (chronic obstructive pulmonary disease) Surgical History History of excision of pilonidal cyst Status post hemilaminotomy Social History Smoking Status: Current every day smoker tobacco type: cigarettes counseling given: provider counseling and counseling >10 minutes alcohol intake: never substance use type: does not use additional social history: DOES USE ASPIRIN DOES USE IBUPROFEN ROS ROS ED Constitutional Constitutional ED: Denies chills or fever(s) Eyes Eyes: Denies blurry vision or discharge from eye(s) ENT ENT ED: Denies discharge from eye(s), rhinorrhea or sore throat Cardiovascular Cardiovascular: Denies chest pain or palpitations Respiratory/Chest Respiratory/Chest: Denies cough or dyspnea Gastrointestinal Gastrointestinal: Reports nausea; Denies abdominal pain or vomiting Genitourinary Genitourinary ED: Denies dysuria Musculoskeletal Musculoskeletal: Denies back pain or extremity pain Integumentary Denies Abrasions or rash Neurologic Neurologic: Reports headache(s), paresthesias and weakness Psychiatric Psychiatric: Denies anxiety or depression Allergic/Immunologic Allergic/Immunologic ED: Denies lip swelling or urticaria EXAM Physical Exam Const Vital Signs: 09/01/23 18:29 09/01/23 19:37 09/01/23 18:28 Temperature 96.8 F L Temperature Source Temporal Pulse Rate 112 H 92 Respiratory Rate 18 12 Respiratory Effort Normal Respiratory Pattern Normal Blood Pressure 136/89 H 122/84 H Blood Pressure Mean 104 96 Pulse Ox 100 98 Oxygen Delivery Method Room Air Room Air Positive well nourished and well developed General Appearance ED: well developed HEENT Reports normocephalic and head/scalp atraumatic Eyes PERRL and EOMs intact bilaterally Neck supple Chest Wall inspection of chest normal and palpation of chest normal Resp normal respiratory effort and clear to auscultation bilaterally Cardio regular rate and regular rhythm GI Auscultation: hypoactive bowel sounds Palpation: soft Extremity normal to inspection Extremity Narrative: Strong distal pulses to the lower extremities. Legs are warm with no significant edema. Neuro oriented x3 Neuro Narrative: No focal neurodeficits. Sensorium / Orientation: alert Psych mental status grossly normal Skin no rashes or lesions noted MDM MDM MDM Narrative Medical decision making narrative: Patient placed on property assessment monitor. EKG obtained to evaluate for cardiac arrhythmia/ischemia. Labwork obtained to evaluate for leukocytosis, anemia, and electrolyte derangement. As long as renal function is normal, patient be sent for CT of the head along with CT with contrast of the chest, abdomen, and pelvis given his headache and weight loss. Lab Data Attestation: I reviewed the patient's lab results. Labs: Laboratory Results - last 24 hr 09/01/23 09/01/23 18:31 19:50 WBC 9.2 RBC 5.72 Hgb 18.0 H* Hct 51.6 MCV 90.2 MCH 31.5 MCHC 34.9 RDW Std Deviation 42.1 RDW Coeff of Cindi 12.8 Plt Count 236 MPV 9.8 Immature Gran % (Auto) 0.500 Neut % (Auto) 42.2 L Lymph % (Auto) 39.3 [place] % (Auto) 10.0 Eos % (Auto) 7.1 H Baso % (Auto) 0.9 Absolute Neuts (auto) 3.9 Absolute Lymphs (auto) 3.63 Nucleated RBC % 0 Diff Path Review May foll Sodium 139 Potassium 3.1 L Chloride 105 Carbon Dioxide 28.0 Anion Gap 6 BUN 20 H Creatinine 1.10 Estim Creat Clear Calc 84.29 Est GFR (MDRD) Af Amer 96 Est GFR (MDRD) Non-Af 79 BUN/Creatinine Ratio 18.2 Glucose 248 H Hemoglobin A1c 8.3 H Calcium 9.3 Total Bilirubin 0.50 Direct Bilirubin 0.17 AST 16 ALT 47 Alkaline Phosphatase 91 Total Protein 7.7 Albumin 4.0 Globulin 3.7 Urine Color Yellow Urine Clarity Clear Urine pH 6.5 Ur Specific [place] 1.015 Urine Protein Negative Urine Glucose (UA) 1000 H Urine Ketones 15 H Urine Occult Blood Negative Urine Nitrite Negative Urine Bilirubin Negative Urine Urobilinogen Normal Ur Leukocyte Esterase Negative Urine RBC 0 SEEN Urine WBC 0 SEEN Ur Squamous Epith Cells 0 SEEN Urine Bacteria 0 SEEN Urine Mucus 0 SEEN Radiography Diagnostic Testing: Clinical Impression(s) from Imaging Studies Brain CT 09/01/23 20:53 IMPRESSION: Normal unenhanced CT scan of the brain. Electronically Signed: Harvey Morley MD at 22:00 EDT , Chest/Abdomen/Pelvis CT 09/01/23 20:53 IMPRESSION: Multiple gallstones. No biliary dilatation. No obstruction. No dominant mass. No focal infiltrate. Electronically Signed: Harvey Morley MD at 22:19 EDT , EKG Initial EKG: Attestation: I personally reviewed and interpreted this EKG as follows: Interpretation: Sinus Rhythm (Sinus at 93 with no acute ischemia.) Treatment and Re-Evaluation :: CBC was normal white count 9.2 and normal differential. Hemoglobin is concentrated at 18. It appears his hemoglobin normally runs between 12 and 15 but has not been checked in our system in 3-1/2 years. Chemistry studies reveal mildly elevated BUN at 20 with a creatinine 1.10. Potassium is slightly low at 3.1. Glucose is 248. LFTs are unremarkable. Urinalysis does reveal glucose but no evidence of infection. Hemoglobin A1c is also obtained and is 8.3. CT scan of the head reveals no acute abnormalities. CT scan of the chest, abdomen, and pelvis reveals no obvious masses. Multiple gallstones are noted. No biliary dilatation. Patient's potassium was replaced orally. He has received IV fluid hydration here. Test results are discussed with he and at bedside. They are comfortable with discharge and follow-up with primary care physician. I did recommend possible evaluation for early neuropathy given his tingling in his legs. Return instructions provided. Discharge Plan Triage Chief Complaint: Fatigue ED Provider: Shalonda Kincaid Dx/Rx/DC Orders Clinical Impression: Paresthesias, Near syncope, Hypokalemia Instructions: ED Hypokalemia, ED Near-Fainting, Uncertain Cause, ED Paraesthesias Prescriptions: No Action omeprazole 20 mg capsule,delayed release(DR/EC) 20 mg PO DAILY Humira(CF) Pen 80 mg/0.8 mL pen injector kit 80 mg subcut Q14D Patient Comments: INJECT 1 PEN SUBCUTANEOUSLY EVERY OTHER WEEK Farxiga 10 mg tablet 10 mg PO DAILY Qty: 90 3RF metformin 850 mg tablet 850 mg PO DAILY Qty: 90 3RF (DME) FreeStyle [address] Sensor Kit See Rx Instructions .ROUTE .MEDSUPPLY Qty: 2 5RF Rx Instructions: 1 sensor q 14 days calcium carbonate [Caltrate 600] 600 mg calcium (1,500 mg) Tablet 600 mg PO DAILY metoprolol succinate 25 mg tablet extended release 24 hr 25 mg PO DAILY Patient Comments: take 1 tablet by mouth once daily DO NOT CRUSH OR CHEW cholecalciferol (vitamin D3) [VitaJoy Daily D] 25 mcg (1,000 unit) tablet,chewable 25 mcg PO DAILY amitriptyline 10 mg tablet 10 mg PO QHS gabapentin 300 mg capsule 300 mg PO TID Patient Comments: TAKE 1 CAPSULE BY MOUTH 3 TIMES DAILY FOR 14 DAYS; START 08/29/23 clindamycin HCl 300 mg capsule 300 mg PO TID Patient Comments: take 1 capsule by mouth three times a day for 10 days; STARTED 08/24/2023 cephalexin 500 mg capsule 500 mg PO .QID Patient Comments: take 1 capsule by mouth four times a day for 10 days; STARTED 08/24/23 topiramate [Topamax] 50 mg tablet 50 mg PO DAILY hydrochlorothiazide 25 mg tablet 25 mg PO DAILY Patient Comments: TAKE 1 TABLET BY MOUTH EVERY DAY atorvastatin 10 mg tablet 10 mg PO QHS Patient Comments: TAKE 1 TABLET BY MOUTH EVERYDAY AT BEDTIME omega-3 fatty acids [Fish Oil] 1 cap PO Patient Comments: 1000 MG DAILY (DME) FreeStyle [address] [place] Misc See Rx Instructions .ROUTE .MEDSUPPLY Qty: 1 0RF Rx Instructions: As directed glimepiride 1 mg tablet 1 mg PO DAILY Qty: 30 3RF Primary Care Provider: Lety Leone Referrals: Miryam Jensen MD [Non-Staff] - Lety Leone, [facility] [employer] [Primary Care Provider] - 5-7 Days Disposition Disposition: Home, Self Care
[2023-09-01 19:52] LABS: Bacteria 0 SEEN /hpf (None Seen); Mucous, Urine 0 SEEN /hpf (<or=2+); Red Blood Cells-Urine 0 SEEN /hpf (0-5); Squamous Epithelial Cells - UA 0 SEEN /hpf (0-5); White Blood Cells 0 SEEN /hpf (0-5)
[2023-09-01] MEDS: 0.9% Normal Saline (1000mL) 1,000 ML 150 ML IV (19:53)
[2023-09-01 20:07] LABS: Absolute Lymphocyte Count 3.63 X10^3/uL (0.83-4.51); Absolute Neutrophil Count 3.9 X10^3/uL (2.0-7.7); Basophil# 0.08 X10^3/uL; Basophil% 0.9 % (0-1); Eosinophil# 0.66 X10^3/uL; Eosinophils% 7.1 % (0-5); Hematocrit 51.6 % (40-54); Lymphocyte # 3.63 X10^3/ul (0.83-4.51); Lymphocyte % 39.3 % (19-41); Mean Corp Hgb Conc 34.9 g/dL (32-36); Mean Corpuscular Hgb 31.5 pg (27.0-32.0); Mean Corpuscular Volume 90.2 fL (80-94); Mean Platelet Vol. 9.8 fl (6.2-12.0); Monocyte# 0.92 X10^3/uL; NRBC Flagged by Analyzer 0 % (0-5); Neutrophil % 42.2 % (47-70); Platelet Count 236 K/mm3 (150-450); RBC Distribution Width CV 12.8 % (11.6-14.6); RBC Distribution Width SD 42.1 fl (35.1-43.9); Red Blood Count 5.72 M/mm3 (4.6-6.2); White Blood Count 9.2 K/mm3 (4.4-11.0)
[2023-09-01 20:08] LABS: Color, Urine Yellow (Yellow); Glucose, Dipstick 1000 mg/dl (Normal); Ketone-Dipstick 15 mg/dl (Negative); Leukocyte Esterase-Dipstick Negative /ul (Negative); Nitrite-Dipstick Negative (Negative); Occult Blood-Urine Negative /ul (Negative); Protein-Dipstick Negative (Negative); Specific Gravity, Urine 1.015 (1.002-1.030); Urine Bilirubin Dipstick Negative (Negative); Urine Clarity Clear (Clear); Urine Urobilinogen Normal (Normal); Urine pH 6.5 (5.0 - 8.0)
[2023-09-01 20:25] LABS: Hemoglobin A1c 8.3 % (3.8-5.6)
[2023-09-01 20:28] VITALS: BP 107/81; PULSE 75; RESP 12; O2SAT 98
[2023-09-01 20:38] LABS: AST(SGOT) 16 U/L (15-37); Alanine Aminotransfer ALT/SGPT 47 U/L (16-61); Alkaline Phosphatase 91 U/L (45-117); Anion Gap 6 (5-15); BUN 20 mg/dL (7-18); BUN/Creat Ratio 18.2 RATIO (10-20); Bilirubin, Direct 0.17 mg/dL (0.00-0.30); Calcium,Total 9.3 mg/dL (8.5-10.1); Chloride 105 mmol/L (98-107); EST Glomerular Filtration Rate 79 mL/min (>60); Est Glom Filt Rate - Afr Amer 96 mL/min (>60); Estimated Creatinine Clearance 84.29 ml/min; Globulin 3.7 g/dL (2.2-4.2); Glucose 248 mg/dL (74-106); Potassium 3.1 mmol/L (3.5-5.1); Protein, Total 7.7 g/dL (6.4-8.2); Sodium Level 139 mmol/L (136-145)
--- NOTE | 2023-09-01 20:53 | CT_ITS ---
STUDY: CT CHEST, ABDOMEN T PELVIS WITH CONTRAST REASON FOR EXAM: Male, 38 years old. Weight loss RADIATION DOSAGE (If Supplied By Facility): CTDIvol = ( 22.83 ) mGy, DLP = ( 2040.23 ) mGycm TECHNIQUE: Transaxial imaging was performed following intravenous administration of 100mL Isovue-300. Multiplanar coronal and sagittal images were reformatted. Individualized dose optimization techniques were used for this CT. COMPARISON: No relevant priors. FINDINGS: CHEST The lungs are normal. There is no demonstrated pleural abnormality. Normal heart and pericardium. Normal mediastinum. Normal hilar regions. Normal unenhanced pulmonary arteries. Normal aorta arch and descending thoracic aorta. There is degenerative change of the thoracic spine There is no demonstrated abnormality of the visualized upper abdomen. ABDOMEN The visualized lung bases are unremarkable. The visualized portions of the heart are within normal limits. Normal liver. There are multiple gallstones. Normal spleen. Normal pancreas. Normal bilateral adrenal glands. Normal right kidney. Normal left kidney. Normal visualized stomach. Normal small intestine. Normal colon. There is moderate stool. The appendix is visualized and appears normal. Normal abdominal aorta. Normal inferior vena cava. Normal retroperitoneum. Normal abdominal wall. There is degenerative change of the lower lumbar spine PELVIS Normal urinary bladder. Normal visualized small intestine. Normal visualized colon. There is no pelvic fluid. There is no pelvic lymphadenopathy or mass lesion. Normal visualized pelvic arteries. Normal abdominal wall. Normal osseous structures. CT/CT Chest, Abd, Pel w/Contrast IMPRESSION: Multiple gallstones. No biliary dilatation. No obstruction. No dominant mass. No focal infiltrate. Electronically Signed: Harvey Morley MD at 22:19 EDT ,
--- NOTE | 2023-09-01 20:53 | CT_ITS ---
STUDY: CT BRAIN WITHOUT CONTRAST REASON FOR EXAM: Male, 38 years old. Headache, near syncope RADIATION DOSAGE (If Supplied By Facility): CTDIvol = ( 44.99 ) mGy, DLP = ( 829.85 ) mGycm TECHNIQUE: Transaxial CT imaging of the brain was performed without administration of intravenous contrast material. Individualized dose optimization techniques were used for this CT. COMPARISON: No relevant priors. FINDINGS: Normal soft tissue structures. Normal calvarium. Normal size ventricles and extra-axial spaces for the patient''s age. Normal white matter tracts of the cerebral hemispheres. Normal basal ganglia and thalami. Normal brainstem. Normal cerebellum. There is no intracranial hemorrhage. There are no findings of an acute ischemic infarction. Normal visualized paranasal sinuses. CT/Brain/Head without Contrast IMPRESSION: Normal unenhanced CT scan of the brain. Electronically Signed: Harvey Morley MD at 22:00 EDT ,
[2023-09-01] MEDS: Potassium Chloride Oral Tablet 20 MEQ 40 MEQ PO (21:39)
[2023-09-01 22:28] VITALS: BP 104/73; PULSE 68; RESP 16; O2SAT 99
[2023-09-03 09:24] LABS: Pathologist Review Reviewed
== END 2023-09-01 22:55 | disposition home or self-care (01) ==
PROVIDERS: Emergency Provider Emergency Medicine; PCP Nurse Practitioner Family; Visit Provider Emergency Medicine
DX: R20.2 Paresthesia of skin (principal); E11.9 Type 2 diabetes mellitus without complications; E87.6 Hypokalemia; R55 Syncope and collapse; F17.210 Nicotine dependence, cigarettes, uncomplicated; Z79.84 Long term (current) use of oral hypoglycemic drugs; Z79.899 Other long term (current) drug therapy
CPT/HCPCS: 70450; 71260; 74177; 80048; 80076; 81001; 83036; 85025; 93005; 99283; J7030; Q9967; A4216

== ENCOUNTER 2024-08-05 07:23 | Emergency (ER) | payer OTHER, SELFPAY ==
[2024-08-05] VITALS (7 sets, daily range): BP systolic 150–181; BP diastolic 68–95; PULSE 89–103; RESP 16–18; TEMP 36.5–37.2; O2SAT 95–99
--- NOTE | 2024-08-05 07:39 | CT_ITS ---
STUDY: CT FACIAL BONES WITH CONTRAST REASON FOR EXAM: Male, 39 years old. Soft tissue pain/swelling R face, fever RADIATION DOSAGE (If Supplied By Facility): CTDIvol = ( 33.06 ) mGy, DLP = ( 854.51 ) mGycm TECHNIQUE: The patient was scanned in a multi detector CT scanner. Transaxial imaging was performed following the intravenous administration of 100ml-ISOVUE 300. Sagittal and coronal images were reconstructed. Individualized dose optimization techniques were used for this CT. COMPARISON: None. FINDINGS: There is evidence of a soft tissue swelling overlying the right inframandibular region extending into the right maxillary region. No focal abscess is seen. There is also evidence of soft tissue swelling overlying the anterior medial aspect of the maxillary bone just inferior to the right maxillary sinus. There is evidence of bony destruction at that site. Abscess within the tube should be ruled out. There is also evidence of perinasal swelling. Normal orbital knowles and orbital contents. Normal nasal bones and anterior nasal spine. Normal facial bones. There is no demonstrated fracture. Mucosal thickening of the maxillary sinuses bilaterally worse on the right side. CT/Sinus/Facial Bone WITH Contras IMPRESSION: Bony destruction in the medial aspect of the right maxillary bone adjacent to the incisor tooth as described. Soft tissue swelling overlying the base of the nose extending to the right submandibular and right maxillary region. Mucosal thickening of the mesentery size bilaterally worse on the right side. Electronically Signed: Abdias Goldstein MD at 9:32 EDT ,
--- NOTE | 2024-08-05 07:42 | ED.VIS.DENTA ---
HPI History of Present Illness Chief Complaint: Dental Informant: patient and spouse/S.O. Narrative Narrative: 39-year-old male brought to the ED by his significant other because of the fever and lethargy this morning. He started having right facial pain and swelling with a toothache 3 to 4 days ago, went to urgent care and was prescribed amoxicillin, today is the third day he has been on that. Other than the pain and swelling he has been doing okay the last couple days until this morning when this morning he was slow to wake up and the significant other checked his temperature and he had a fever of 101, and so brought him to the ER saying that she had trouble getting him into the car because he was so weak. She states this is how he presented when he was septic in the past from hidradenitis suppurativa complications. He is a diabetic and also had an TN and is on Brilinta. He has had no fever treatments this morning, currently afebrile. He states that the pain and swelling has not necessarily been getting worse but is not getting better on the amoxicillin. States his tooth is not really hurting right now. He said a little bit of a runny nose but it was clear, no purulent discharge. Denies a headache or neck stiffness and denies any other complaints right now except for feeling tired and weak. [facility] Medical History Tobacco dependence Meniere's disease Hidradenitis Vitamin deficiency Fatty liver Recurrent infections Hearing problem Diabetes Back problem Home Medications ?Medication ?Instructions ?Recorded ?Last Taken ?Type flash glucose scanning reader #1 ea 07/27/20 Unknown Rx (FreeStyle [address] [place]) calcium carbonate 600 mg PO DAILY 09/11/21 Unknown History flash glucose sensor (FreeStyle #2 ea 03/23/[address] Sensor kit) cholecalciferol (vitamin D3) 25 25 mcg PO DAILY 09/01/23 Unknown History mcg (1,000 unit) chewable tablet (VitaJoy Daily D) topiramate 50 mg tablet (Topamax) 50 mg PO DAILY 09/01/23 Unknown History blood-glucose sensor (Dexcom G7 #3 ea 10/08/23 Unknown Rx Sensor device) aspirin 81 mg tablet,delayed 81 mg PO QDAY 02/25/24 Unknown History release atorvastatin 80 mg tablet 80 mg PO QDAY 02/25/24 Unknown History gabapentin 300 mg capsule 300 mg PO BID 02/25/24 Unknown History metoprolol succinate 50 mg 50 mg PO QDAY 02/25/24 Unknown History tablet,extended release 24 hr nitroglycerin 0.4 mg sublingual 0.4 mg sublingual Q5-15M PRN 02/25/24 Unknown History tablet omega-3 fatty acids [Fish Oil] 1 cap PO DAILY 02/25/24 Unknown History ticagrelor 90 mg tablet (Brilinta) 90 mg PO BID 02/25/24 Unknown History trazodone 50 mg tablet 50 mg PO QHS PRN 02/25/24 Unknown History empagliflozin 25 mg tablet 25 mg PO DAILY #90 tabs 07/27/24 Unknown Rx (Jardiance) glimepiride 1 mg tablet 1 mg PO DAILY #90 tabs 07/27/24 Unknown Rx metformin 850 mg tablet 850 mg PO DAILY #90 tabs 07/27/24 Unknown Rx omeprazole 40 mg capsule,delayed 40 mg PO QDAY 07/27/24 Unknown History release semaglutide 0.25 mg or 0.5 mg (2 0.25 mg (0.368 mL) subcut QWEEK #3 07/27/24 Unknown Rx mg/3 mL) subcutaneous pen injector mL (Ozempic) hydrocodone-acetaminophen 5-325mg 1 tab PO Q6H PRN PRN Pain 3 days 08/05/24 Unknown Rx 5mg-325mg #10 TABLETS Allergy/AdvReac Type Severity Reaction Status Date / Time sulfamethoxazole (From Allergy Severe BODY RASH Verified 08/05/24 07:24 Bactrim) tramadol Allergy Severe Other Verified 08/05/24 07:24 trimethoprim (From Bactrim) Allergy Severe BODY RASH Verified 08/05/24 07:24 Family History Uncle Alcohol abuse Aunt Alcohol abuse Grandfather Alcohol abuse Sister Anemia Anxiety Diabetes Mother Anemia Diabetes Heart disease CVA (cerebral vascular accident) Father Bone cancer COPD (chronic obstructive pulmonary disease) Surgical History Status post hemilaminotomy History of excision of pilonidal cyst Social History Smoking Status: Current every day smoker tobacco type: cigarettes alcohol intake: never substance use type: does not use additional social history: DOES USE ASPIRIN DOES USE IBUPROFEN ROS ROS ED Constitutional Constitutional ED: Reports fatigue, fever(s) and weakness; Denies chills Eyes Eyes: Denies change in vision or double vision ENT ENT ED: Reports as per HPI and dental pain; Denies ear pain, sinus pain, sore throat or throat swelling Cardiovascular Cardiovascular: Denies chest pain or palpitations Respiratory/Chest Respiratory/Chest: Denies cough or dyspnea Gastrointestinal Gastrointestinal: Denies abdominal pain, diarrhea, nausea or vomiting Genitourinary Genitourinary ED: Denies dysuria or hematuria Musculoskeletal Musculoskeletal: Denies back pain or neck pain Integumentary Denies abscess or rash Neurologic Neurologic: Denies headache(s), paresthesias or weakness Psychiatric Psychiatric: Denies suicidal thoughts EXAM Physical Exam Const Vital Signs: 08/05/24 07:25 08/05/24 07:28 08/05/24 08:28 Temperature 97.7 F L 97.7 F L Temperature Source Oral Oral Pulse Rate 99 99 Respiratory Rate 18 18 Respiratory Effort Normal Non-Labored Respiratory Pattern Normal Blood Pressure 150/86 H 150/86 H Blood Pressure Mean 107 107 Pulse Ox 95 95 Oxygen Delivery Method Room Air Room Air 08/05/24 08:28 08/05/24 09:00 08/05/24 10:00 Temperature 98.8 F 98.4 F 99 F Temperature Source Oral Oral Oral Pulse Rate 103 H 99 91 Respiratory Rate 18 16 18 Respiratory Effort Respiratory Pattern Blood Pressure 181/95 H 175/85 H 168/88 H Blood Pressure Mean 123 115 114 Pulse Ox 98 98 98 Oxygen Delivery Method Room Air Room Air Room Air Positive well nourished and well developed Constitutional Narrative: Appears fatigued but is alert, follows commands, and converses without difficulty. General Appearance ED: well developed and NAD HEENT Reports moist mucous membranes HEENT Narrative: There is swelling and tenderness without fluctuance or palpable focal collection in the right mid face/cheek/maxillary area. It hurts in this area to open his mouth given him some mild trismus, there is some poor dentition but it is relatively focal and in this area it is approximately tooth #6 which is decayed but nontender. There is no gingival tenderness or bleeding or focal swelling or abscess. When pressing up toward the swollen area there is pain. Tongue is normal. Throat is normal. Nares normal, no discharge or bleeding. normocephalic and atraumatic Throat: posterior oropharynx normal Eyes PERRL and EOMs intact bilaterally Neck no lymphadenopathy and supple Neck Narrative: FROM w/o diff General: normal visual inspection; Negative for tenderness Lymph Lymphatic: no lymphadenopathy noted Resp normal respiratory effort Cardio regular rate, regular rhythm and no murmurs Rate: Negative for tachycardic GI non-tender and non-distended Auscultation: normoactive bowel sounds Palpation: soft Back/Spine General Back: other FROM Extremity normal to inspection General Extremety ED: Negative for edema, pulses abnormal or tenderness General Extremity: Negative for edema or pulses abnormal Neuro oriented x3 and CN's II-XII intact bilaterally Neuro Narrative: GCS 15 Sensorium / Orientation: alert Gait (Neuro): normal gait Motor Exam: general weakness Psych mental status grossly normal and thought process normal Skin no rashes or lesions noted and no wounds MDM MDM MDM Narrative Medical decision making narrative: Given the history to perform septic workup, he does have a leukocytosis but his lactate is normal and he does not have a strong left shift or any bandemia, and does not appear septic clinically. I performed a CT of the face with IV contrast to evaluate the sinus and the soft tissues. He does not have symptoms of the deep spaces of the neck. I reviewed the images and the report which I agree with. Radiology states there is no discrete collection, he does have diffuse soft tissue swelling in the area that we see clinically, which is relatively mild his eye is not swollen shut, and there is some localized bony destruction above the tooth I was concerned about clinically but there is no sinus involvement, which also is consistent with what I am seeing clinically. The patient is doing well clinically, he developed a temperature that is in the 99 range. He has not had his antibiotics yet this morning, some given him a dose of IV Unasyn. I discussed with Dr. Cortez with oromaxillofacial surgery, he advises that this patient simply needs to follow-up with his dentist and have the tooth pulled, ideally in a week or less and agrees with the antibiotics until then. He sees [facility]. I was able to speak with the dentist there. She states that if he is willing to undergo an extraction of the single tooth under local then they would be happy to get him in after the weekend and get that done, agreeing with this decision making, and they will call him to set up appt. Relayed to the patient and will discharge him with some pain medication. Lab Data Attestation: I reviewed the patient's lab results. Labs: Laboratory Results - last 24 hr 08/05/24 08/05/24 07:50 07:58 WBC 15.7 H RBC 5.32 Hgb 15.7 Hct 46.6 MCV 87.6 MCH 29.5 MCHC 33.7 RDW Std Deviation 41.8 RDW Coeff of Cindi 13.1 Plt Count 244 MPV 9.5 Immature Gran % (Auto) 0.400 Neut % (Auto) 77.5 H Lymph % (Auto) 11.0 L [place] % (Auto) 10.2 H Eos % (Auto) 0.6 Baso % (Auto) 0.3 Absolute Neuts (auto) 12.1 H Absolute Lymphs (auto) 1.72 Nucleated RBC % 0 Diff Path Review May foll Sodium 138 Potassium 3.5 Chloride 107 Carbon Dioxide 22.0 Anion Gap 9 BUN 17 Creatinine 1.00 Est GFR (MDRD) Af Amer 106 Est GFR (MDRD) Non-Af 88 BUN/Creatinine Ratio 17.0 Glucose 235 H Lactic Acid 1.4 Calcium 9.2 POC Glucose 222 H Radiography Diagnostic Testing: Clinical Impression(s) from Imaging Studies Facial/Sinus 08/05/24 07:39 IMPRESSION: Bony destruction in the medial aspect of the right maxillary bone adjacent to the incisor tooth as described. Soft tissue swelling overlying the base of the nose extending to the right submandibular and right maxillary region. Mucosal thickening of the mesentery size bilaterally worse on the right side. Electronically Signed: Abdias Goldstein MD at 9:32 EDT , Management Discussion w/another healthcare provider: Fingerprint Classifier (OMFS, dentist) Discharge Plan Triage Chief Complaint: Dental Other Complaint: Fever ED Provider: Harvey Zapata Dx/Rx/DC Orders Clinical Impression: Infected dental caries Instructions: Dental Abscess Prescriptions: New hydrocodone-acetaminophen 5-325 mg tablet 1 tab PO Q6H PRN PRN (Reason: Pain) 3 Days Qty: 10 0RF No Action (DME) FreeStyle Lane [address] Sensor Kit See Rx Instructions .ROUTE .MEDSUPPLY Qty: 2 5RF Rx Instructions: 1 sensor q 14 days atorvastatin 80 mg tablet 80 mg PO QDAY metoprolol succinate 50 mg tablet extended release 24 hr 50 mg PO QDAY Brilinta 90 mg tablet 90 mg PO BID aspirin 81 mg tablet,delayed release (DR/EC) 81 mg PO QDAY trazodone 50 mg tablet 50 mg PO QHS PRN nitroglycerin 0.4 mg tablet, sublingual 0.4 mg sublingual Q5-15M PRN omeprazole 40 mg capsule,delayed release(DR/EC) 40 mg PO QDAY glimepiride 1 mg tablet 1 mg PO DAILY Qty: 90 1RF Ozempic 0.25 mg or 0.5 mg (2 mg/3 mL) pen injector 0.25 mg subcut QWEEK Qty: 3 2RF metformin 850 mg tablet 850 mg PO DAILY Qty: 90 1RF Jardiance 25 mg tablet 25 mg PO DAILY Qty: 90 1RF calcium carbonate [Caltrate 600] 600 mg calcium (1,500 mg) Tablet 600 mg PO DAILY cholecalciferol (vitamin D3) [VitaJoy Daily D] 25 mcg (1,000 unit) tablet,chewable 25 mcg PO DAILY topiramate [Topamax] 50 mg tablet 50 mg PO DAILY gabapentin 300 mg capsule 300 mg PO BID Patient Comments: TAKE 1 CAPSULE BY MOUTH 3 TIMES DAILY FOR 14 DAYS; START 08/29/23 omega-3 fatty acids [Fish Oil] 1 cap PO DAILY Patient Comments: 1000 MG DAILY (DME) FreeStyle [address] [place] Misc See Rx Instructions .ROUTE .MEDSUPPLY Qty: 1 0RF Rx Instructions: As directed (DME) Dexcom G7 Sensor Device See Rx Instructions .Route Qty: 3 6RF Rx Instructions: As directed Primary Care Provider: Lety Leone Referrals: Lety Leone, [employer] [Primary Care Provider] - Dentist,Your [STAFF PHYSICIAN] - As soon as possible (should call you for appt) Print Language: Niuean Disposition Disposition: Home, Self Care
[2024-08-05] MEDS: 0.9% Normal Saline (1000mL) 1,000 ML 999 ML IV (07:58)
[2024-08-05 08:02] LABS: Absolute Lymphocyte Count 1.72 X10^3/uL (0.83-4.51); Absolute Neutrophil Count 12.1 X10^3/uL (2.0-7.7); Basophil# 0.05 X10^3/uL; Basophil% 0.3 % (0-1); Eosinophil# 0.09 X10^3/uL; Eosinophils% 0.6 % (0-5); Hematocrit 46.6 % (40-54); Hemoglobin 15.7 g/dL (13.0-16.5); Lymphocyte # 1.72 X10^3/ul (0.83-4.51); Mean Corp Hgb Conc 33.7 g/dL (32-36); Mean Corpuscular Hgb 29.5 pg (27.0-32.0); Mean Corpuscular Volume 87.6 fL (80-94); Mean Platelet Vol. 9.5 fl (6.2-12.0); Monocyte% 10.2 % (0-10); NRBC Flagged by Analyzer 0 % (0-5); Neutrophil # 12.14 X10^3/uL (2.7-7.7); Neutrophil % 77.5 % (47-70); POSITIVE DIFFERENTIAL YES; Platelet Count 244 K/mm3 (150-450); RBC Distribution Width CV 13.1 % (11.6-14.6); RBC Distribution Width SD 41.8 fl (35.1-43.9); Red Blood Count 5.32 M/mm3 (4.6-6.2); White Blood Count 15.7 K/mm3 (4.4-11.0)
[2024-08-05 08:04] LABS: Differential Indicated SCAN CRITERIA MET
[2024-08-05 08:16] LABS: Anion Gap 9 (5-15); BUN 17 mg/dL (7-18); Calcium,Total 9.2 mg/dL (8.5-10.1); Chloride 107 mmol/L (98-107); EST Glomerular Filtration Rate 88 mL/min (>60); Est Glom Filt Rate - Afr Amer 106 mL/min (>60); Glucose 235 mg/dL (74-106); Potassium 3.5 mmol/L (3.5-5.1); Sodium Level 138 mmol/L (136-145)
[2024-08-05 08:17] LABS: Bedside Glucose 222 mg/dL (74-106)
[2024-08-05 08:33] LABS: Lactic Acid 1.4 mmol/L (0.4-1.9)
[2024-08-05] MEDS: Ampicillin/Sulbactam 3 GM in 0.9% Normal Saline (100mL MB+) 100 ML IV (10:50)
[2024-08-05] MEDS: HYDROcodone Bitartrate/Apap 5/325 Tablet PO (10:55)
[2024-08-08 12:56] LABS: Pathologist Review Reviewed
== END 2024-08-05 12:02 | disposition home or self-care (01) ==
PROVIDERS: Emergency Provider Emergency Medicine; PCP Nurse Practitioner Family; Visit Provider Emergency Medicine
DX: K04.7 Periapical abscess without sinus (principal); E11.9 Type 2 diabetes mellitus without complications; K02.9 Dental caries, unspecified; E56.9 Vitamin deficiency, unspecified; L73.2 Hidradenitis suppurativa; I25.2 Old myocardial infarction; F17.210 Nicotine dependence, cigarettes, uncomplicated; Z88.1 Allergy status to other antibiotic agents; Z88.2 Allergy status to sulfonamides; Z79.84 Long term (current) use of oral hypoglycemic drugs; Z79.82 Long term (current) use of aspirin; Z79.899 Other long term (current) drug therapy
CPT/HCPCS: 70487; 80048; 82962; 83605; 85025; 87040; 96365; 99285; J7030; J7050; Q9967; A4216; J0295

== ENCOUNTER 2025-03-03 11:15 | Outpatient (RCR) | payer BC, SELFPAY ==
[2025-02-09 13:37] VITALS: BP 115/64; PULSE 90; RESP 18; TEMP 36.1
--- NOTE | 2025-02-09 15:02 | HP.PCM_ITS ---
History of Present Illness Date of Service: 02/09/25 [facility] Medical History (Updated 01/04/25 @ 16:09 by GEOFF Ledesma) Tobacco dependence Meniere's disease Hidradenitis Vitamin deficiency Fatty liver Recurrent infections Hearing problem Diabetes Back problem Home Medications ?Medication ?Instructions ?Recorded ?Last Taken ?Type flash glucose scanning reader #1 ea 07/27/20 Unknown R x (FreeStyle [address] [place]) calcium carbonate 600 mg PO DAILY 09/11/21 Unk nown History flash glucose sensor (FreeStyle #2 ea 03/23/[address] Sensor kit) cholecalciferol (vitamin D3) 25 25 mcg PO DAILY Unknown History mcg (1,000 unit) chewable tablet (VitaJoy Daily D) topiramate 50 mg tablet (Topamax) 50 mg PO DAILY 09/01 Unknown History blood-glucose sensor (Dexcom G7 #3 ea 10/08/23 Unknown Rx Sensor device) aspirin 81 mg tablet,delayed 81 mg PO QDAY 02/25/24 Un known History release atorvastatin 80 mg tablet 80 mg PO QDAY 02/25/24 Unkno wn History metoprolol succinate 50 mg 50 mg PO QDAY 02/25/24 Unkn own History tablet,extended release 24 hr nitroglycerin 0.4 mg sublingual 0.4 mg sublingual Q5-1 5M PRN chest 02/25/24 Unknown History tablet pain empagliflozin 25 mg tablet 25 mg PO DAILY #90 tabs Unknown Rx (Jardiance) famotidine 20 mg tablet 20 mg PO BID 01/04/25 Unknow n History gabapentin 300 mg capsule 300 mg PO TID 01/04/25 Unkno wn History glimepiride 1 mg tablet 1 mg PO QD-BID PRN daibetes 01/04/25 Unknown History metformin 850 mg tablet 850 mg PO BID #180 tabs 12/11 05/03 Unknown Rx secukinumab 300 mg/2 mL 75 mg subcut .QOW 01/04/25 U nknown History subcutaneous pen injector (Cosentyx UnoReady Pen) amoxicillin 875 mg-potassium 1 tab PO BID 02/09/25 Unk nown History clavulanate 125 mg tablet diazepam 5 mg tablet 5 mg PO DAILY PRN anxiety Unknown History glimepiride 4 mg tablet 4 mg PO QPM 02/09/25 Unknown History hydromorphone 4 mg tablet PO 02/09/25 Unknown History omeprazole 40 mg capsule,delayed 40 mg PO 02/09/25 Unk nown History release ondansetron HCl 4 mg tablet PO 02/09/25 Unknown Histor y Allergy/AdvReac Type Severity Reaction Status Date / Time sulfamethoxazole (From Allergy Severe BODY RASH Verified 02/09/25 13:54 Bactrim) tramadol Allergy Severe Other Verified 02/09/25 13:54 trimethoprim (From Bactrim) Allergy Severe BODY RASH Verified 02/09/25 13:54 hydromorphone (From Dilaudid) AdvReac Intermediate Other Verified 02/09/25 13:54 Family History Uncle Alcohol abuse Aunt Alcohol abuse Grandfather Alcohol abuse Sister Anemia Anxiety Diabetes Mother Anemia Diabetes Heart disease CVA (cerebral vascular accident) Father Bone cancer COPD (chronic obstructive pulmonary disease) Surgical History Status post hemilaminotomy History of excision of pilonidal cyst Social History Smoking Status: Current every day smoker tobacco type: cigarettes alcohol intake: never substance use type: does not use additional social history: DOES USE ASPIRIN DOES USE IBUPROFEN Vital Signs Vital Signs Vital Signs: 02/09/25 13:37 Temperature 96.9 F L Temperature Source Temporal Pulse Rate 90 Respiratory Rate 18 Blood Pressure 115/64 Blood Pressure Mean 81 Blood Pressure Source Monitor Blood Pressure Position Semi-Fowlers Blood Pressure Location Left Arm Oxygen Delivery Method Room Air Debridement Note Debridement Note Post-Debridement Measurements and Additional Note: Post-Debridement Measurements/Treatment - Nurse 1 - General Ulcer Assessment Start: 02/09/25 13:32 Freq: Status: Active Protocol: DESMOND Activity Type Activity Date Activity User E-sign Co-sign Detail Recorded Client Recorded Date Recorded By Document 02/09/25 13:37 KW [id number] 02/09/25 13:48 KW 02/09/25 13:37 - Today's Visit Information Type of service Initial Visit Vital Signs Temperature (97.8 F-99.1 F) 96.9 F L Temperature Source Temporal Pulse Rate (60-100) 90 Pulse Location Monitor Respiratory Rate (12-18) 18 Respiratory rate source Observation Oxygen Delivery Method Room Air Blood Pressure (90/60-120/80) 115/64 Blood Pressure Mean 81 Source Monitor Position Semi-Fowlers Blood Pressure Location Left Arm History Since Last Visit- (Skip if this is Patient's initial visit) Have you changed medications since your No last visit? Any new allergies or adverse reactions No Had a fall/change in ADL's that may No increase risk of falls Signs or symptoms of abuse and/or No
--- NOTE | 2025-02-09 15:02 | PCM.WC.HP ---
History of Present Illness Date of Service: 02/09/25 [facility] Medical History (Updated 01/04/25 @ 16:09 by GEOFF Ledesma) Tobacco dependence Meniere's disease Hidradenitis Vitamin deficiency Fatty liver Recurrent infections Hearing problem Diabetes Back problem Home Medications ?Medication ?Instructions ?Recorded ?Last Taken ?Type flash glucose scanning reader #1 ea 07/27/20 Unknown Rx (FreeStyle [address] [place]) calcium carbonate 600 mg PO DAILY 09/11/21 Unknown History flash glucose sensor (FreeStyle #2 ea 03/23/[address] Sensor kit) cholecalciferol (vitamin D3) 25 25 mcg PO DAILY 09/01/23 Unknown History mcg (1,000 unit) chewable tablet (VitaJoy Daily D) topiramate 50 mg tablet (Topamax) 50 mg PO DAILY 09/01/23 Unknown History blood-glucose sensor (Dexcom G7 #3 ea 10/08/23 Unknown Rx Sensor device) aspirin 81 mg tablet,delayed 81 mg PO QDAY 02/25/24 Unknown History release atorvastatin 80 mg tablet 80 mg PO QDAY 02/25/24 Unknown History metoprolol succinate 50 mg 50 mg PO QDAY 02/25/24 Unknown History tablet,extended release 24 hr nitroglycerin 0.4 mg sublingual 0.4 mg sublingual Q5-15M PRN chest 02/25/24 Unknown History tablet pain empagliflozin 25 mg tablet 25 mg PO DAILY #90 tabs 01/04/25 Unknown Rx (Jardiance) famotidine 20 mg tablet 20 mg PO BID 01/04/25 Unknown History gabapentin 300 mg capsule 300 mg PO TID 01/04/25 Unknown History glimepiride 1 mg tablet 1 mg PO QD-BID PRN daibetes 01/04/25 Unknown History metformin 850 mg tablet 850 mg PO BID #180 tabs 01/04/25 Unknown Rx secukinumab 300 mg/2 mL 75 mg subcut .QOW 01/04/25 Unknown History subcutaneous pen injector (Cosentyx UnoReady Pen) amoxicillin 875 mg-potassium 1 tab PO BID 02/09/25 Unknown History clavulanate 125 mg tablet diazepam 5 mg tablet 5 mg PO DAILY PRN anxiety 02/09/25 Unknown History glimepiride 4 mg tablet 4 mg PO QPM 02/09/25 Unknown History hydromorphone 4 mg tablet PO 02/09/25 Unknown History omeprazole 40 mg capsule,delayed 40 mg PO 02/09/25 Unknown History release ondansetron HCl 4 mg tablet PO 02/09/25 Unknown History Allergy/AdvReac Type Severity Reaction Status Date / Time sulfamethoxazole (From Allergy Severe BODY RASH Verified 02/09/25 13:54 Bactrim) tramadol Allergy Severe Other Verified 02/09/25 13:54 trimethoprim (From Bactrim) Allergy Severe BODY RASH Verified 02/09/25 13:54 hydromorphone (From Dilaudid) AdvReac Intermediate Other Verified 02/09/25 13:54 Family History Uncle Alcohol abuse Aunt Alcohol abuse Grandfather Alcohol abuse Sister Anemia Anxiety Diabetes Mother Anemia Diabetes Heart disease CVA (cerebral vascular accident) Father Bone cancer COPD (chronic obstructive pulmonary disease) Surgical History Status post hemilaminotomy History of excision of pilonidal cyst Social History Smoking Status: Current every day smoker tobacco type: cigarettes alcohol intake: never substance use type: does not use additional social history: DOES USE ASPIRIN DOES USE IBUPROFEN Vital Signs Vital Signs Vital Signs: 02/09/25 13:37 Temperature 96.9 F L Temperature Source Temporal Pulse Rate 90 Respiratory Rate 18 Blood Pressure 115/64 Blood Pressure Mean 81 Blood Pressure Source Monitor Blood Pressure Position Semi-Fowlers Blood Pressure Location Left Arm Oxygen Delivery Method Room Air Debridement Note Debridement Note Post-Debridement Measurements and Additional Note: Post-Debridement Measurements/Treatment - Nurse 1 - General Ulcer Assessment Start: 02/09/25 13:32 Freq: Status: Active Protocol: DESMOND Activity Type Activity Date Activity User E-sign Co-sign Detail Recorded Client Recorded Date Recorded By Document 02/09/25 13:37 [email or web address] [id number] 02/09/25 13:48 KW 02/09/25 13:37 - Today's Visit Information Type of service Initial Visit Vital Signs Temperature (97.8 F-99.1 F) 96.9 F L Temperature Source Temporal Pulse Rate (60-100) 90 Pulse Location Monitor Respiratory Rate (12-18) 18 Respiratory rate source Observation Oxygen Delivery Method Room Air Blood Pressure (90/60-120/80) 115/64 Blood Pressure Mean 81 Source Monitor Position Semi-Fowlers Blood Pressure Location Left Arm History Since Last Visit- (Skip if this is Patient's initial visit) Have you changed medications since your No last visit? Any new allergies or adverse reactions No Had a fall/change in ADL's that may No increase risk of falls Signs or symptoms of abuse and/or No neglect since last visit Have you been in the hospital since your No last visit? Has dressing in place as prescribed Yes Has compression in place as prescribed Yes Has offloadiing in place as prescribed N/A Experienced any changes in pain level or No management Left Footwear Regular Shoe Right Footwear Regular Shoe Pain Scale: 0-10 Numeric Is Patient Pain Free? Yes Communication Assessment Preferred language Gambian Product Info Specialist Required No Able to Read Yes Able to Write Yes Caregiver Communication Skills No Impairment Impairment Right Hearing Abillity Normal Left Hearing Abillity Normal Visual Assistive Devices Glasses Teaching Assessment Preferences Verbal,Written, Demonstration Barriers to Learning None Readiness To Learn Excellent Willingness to Engage in Self Management High Activies Readiness to Engage in Self Management High Activities Anxiety Level Calm Cooperation Cooperative Perception Coherent Interest in Health Problem Asks Questions Education Importance Acknowledges Need Does Patient Smoke tobacco or other Yes substances Smoking Status Current every day smoker Is Patient Diabetic Yes Functional Assessment Recent Decline in Ability to Perform Denies Any Declines Culture/Jainism/Card Cleaner Cultural/Jainism Needs that may affect No Treatment Plan Would you allow our hospital wire strander to No meet you for the purpose of spiritual/ emotional support? Card Cleaner to contact place of oriental orthodox No WC - Nurse 1 - General Ulcer Measurement Start: 02/09/25 13:32 Freq: Status: Active Protocol: Activity Type Activity Date Activity User E-sign Co-sign Detail Recorded Client Recorded Date Recorded By Document 02/09/25 13:37 KW [id number] 02/09/25 13:48 KW 02/09/25 13:37 Wound Center Nurse 1 #16 Med Pubic Area -Current Size (cm) - Length 5.4 -Current Size (cm) - Width 3.7 -Current Size (cm) - Depth 0.1 -Total Square Cm 19.98 -Date of Last Picture (Recall this 02/09/25 field) -Exudate Amt Small -Exudate Type Serosanguineous -Wound Margin Distinct, Outline Attached -Granulation Amt Large (67-100%) -Granulation Quality Red -Texture (Kassandra-wound Skin Appearance) Assessed -Moisture (Kassandra-wound Skin Appearance) Assessed -Color (Kassandra-wound Skin Appearance) Assessed -Temperature (Kassandra-wound Skin No Abnormality Appearance) (Pt Warm) -Tenderness on Palpation (Kassandra-wound No Skin Appearance) -Ulcer Cleansing Soap and Water -Foul Odor after Cleansing No -Anesthetic Used 4% Lidocaine Solution #15 L Groin -Current Size (cm) - Length 10.2 -Current Size (cm) - Width 5.8 -Current Size (cm) - Depth 1.6 -Total Square Cm 59.16 -Date of Last Picture (Recall this 02/09/25 field) -Exudate Amt Large -Exudate Type Serosanguineous -Wound Margin Distinct, Outline Attached -Granulation Amt Large (67-100%) -Granulation Quality Red -Necrosis Amt Small (1-33%) -Necrotic Tissue Type Eschar -Texture (Kassandra-wound Skin Appearance) Assessed -Moisture (Kassandra-wound Skin Appearance) Assessed -Color (Kassandra-wound Skin Appearance) Assessed -Temperature (Kassandra-wound Skin No Abnormality Appearance) (Pt Warm) -Tenderness on Palpation (Kassandra-wound No Skin Appearance) -Ulcer Cleansing Soap and Water -Foul Odor after Cleansing No -Anesthetic Used 4% Lidocaine Solution WC - Nurse 2 - General Ulcer CM Notes Start: 02/09/25 13:32 Freq: Status: Active Protocol: Activity Type Activity Date Activity User E-sign Co-sign Detail Recorded Client Recorded Date Recorded By Document 02/09/25 14:15 [id number] 02/09/25 14:28 02/09/25 14:15 Wound Center Nurse 2 #16 Med Pubic Area -Time 14:15 -Correct Patient Yes -Correct Side, Site, Position Yes -Correct Procedure Yes -Procedure Performed Yes -Type of Procedure Debridement -Clinical Debridement Subcutaneous -Tissue Removed Subcutaneous -Post Debridement (cm) - Length 5.3 -Post Debridement (cm) - Width 3.5 -Post Debridement (cm) - Depth 0.4 -Total Square (Post) (cm) 18.55 -Area of Debridement (cm) - Length 5.3 -Area of Debridement (cm) - Width 3.5 -Total Square (Area) (cm) 18.55 -Wound/Ulcer Outcome Not Healed -Ulcer Cleansing Rinsed/ Irrigated with Saline -Foul Odor after Cleansing No -Bioengineered Tissue No -Bleeding Controlled with Pressure -Treatment Response Procedure Tolerated Well -Debridement - Subq, 1st 20sq cm Yes #15 L Groin -Time 14:15 -Correct Patient Yes -Correct Side, Site, Position Yes -Correct Procedure Yes -Procedure Performed Yes -Type of Procedure Debridement -Clinical Debridement Muscle / Fascia -Tissue Removed Muscle -Post Debridement (cm) - Length 11.0 -Post Debridement (cm) - Width 8.0 -Post Debridement (cm) - Depth 2.7 -Total Square (Post) (cm) 88.00 -Area of Debridement (cm) - Length 11.0 -Area of Debridement (cm) - Width 8.0 -Total Square (Area) (cm) 88.00 -Tunneling Yes -Tunneling Position (O'clock) 6 -Tunneling Distance (cm) 2.2 -Undermining/Tunneling No -Circular Undermining No -Wound/Ulcer Outcome Not Healed -Ulcer Cleansing Rinsed/ Irrigated with Saline -Foul Odor after Cleansing No -Bioengineered Tissue No -Bleeding Controlled with Pressure -Treatment Response Procedure Tolerated Well -Debridement - Muscle / Fascia, 1st Yes 20sq cm -Debridement, Muscle/Fascia, ea addt'l 4 20sq cm or part thereof Pain Scale: 0-10 Numeric Is Patient Pain Free? Yes WC - Nurse 3 - General Ulcer D/C NN Start: 02/09/25 13:32 Freq: Status: Active Protocol: Activity Type Activity Date Activity User E-sign Co-sign Detail Recorded Client Recorded Date Recorded By Document 02/09/25 14:38 [facility] [id number] 02/09/25 14:41 [facility] 02/09/25 14:38 Wound Care Center Nurse 3 #16 Med Pubic Area -Ulcer Cleansing Soap and Water -Foul Odor after Cleansing No -Primary Dressing Applied Hysept -Other Dressing dakins moist gauze -Primary Dressing Covered/Secured with Secured with Tape -Other Covering abd, drsg per dl hard candy batch mixer -Hysept 1 #15 L Groin -Ulcer Cleansing Rinsed/ Irrigated with Saline -Foul Odor after Cleansing No -Other Dressing dakins moist gauze; abd; drsg per dl hard candy batch mixer ; kerlix wrap per pt request -Primary Dressing Covered/Secured with Secured with Tape Treatment Response Procedure Tolerated Well Pain Scale: 0-10 Numeric Is Patient Pain Free? Yes WC - Visit Discharge Discharge Condition Stable Ambulatory Status Ambulatory Transportation Private Auto
--- NOTE | 2025-02-10 10:55 | WC ---
PHOTO 02/09/25 LEFT GROIN
--- NOTE | 2025-02-10 10:55 | WC ---
PHOTO 02/09/25 [facility]
[2025-02-17 09:49] VITALS: BP 108/67; PULSE 81; RESP 18; TEMP 36.1
--- NOTE | 2025-02-17 14:40 | PN.PCM_ITS ---
History of Present Illness Date of Service: 02/17/25 Chief Complaint: surgical wounds of suprapubic and left groin/perineum History of Wound: Mr. Theron Magaña is a 40 y/o male who presents to the wound center today for evaluation and management of his intertriginous wounds as referred by his plastic surgeon Dr. Valle of [facility]. Mr. Magaña has Hidradenitis Suppurative. Mid-January, he had surgery by Dr. Larson to address his HS lesions within his groin. Many of these were able to be closed with sutures, but 2 were left open. He has a relatively small, superficial open wound midline pelvic region and a larger, deeper wound in the inguinal/gluteal cleft. His is a nurse practitioner and cares for his wounds at home. Right now, they are applying wet-to-dry Dakins dressings to the open wounds; cleansing closed wounds with Hibiclens; changing daily. He is currently on Augmentin at the direction of his plastic surgeon. He saw his surgeon this week and Ciprofloxacin was prescribed to treat Pseudomonas infection. He has been dealing with these and similar wound/HS lesions for many years. In the past, he has had wound vacs and the changes were very painful for him. He has tried a few biologics without consistent success; was recently started on one called Bimzelx but too soon to tell if it is providing improvement. Objective Data Objective Data Vital Signs: Vital Signs Temp Pulse Resp BP O2 Del Method 97 F L 81 18 108/67 Room Air 02/17/25 09:49 02/17/25 09:49 02/17/25 09:49 02/17/25 09:49 02/09/25 13:37 Oxygen Delivery Method Room Air Physical Exam Const alert, oriented x3 and no apparent distress General Appearance: cooperative and comfortable HEENT normocephalic and head/scalp atraumatic Resp normal respiratory effort Effort and Inspection: able to speak in complete sentences Cardio regular rate and regular rhythm Skin Wounds: wounds noted Wound Narrative: as in clinical panel Within the pelvic region there are several closed surgical wounds which are well-healing; in the mid-line there is a surgical wound which is open, superficial, with good granulation tissue at the base with minimal associated slough. There is no surrounding erythema, excess warmth, fluctuance, or induration. In the left inguinal area there is a large open surgical wound with irregular/varying depth but at the deepest to the muscular layer; 100% granular wound base with mild associated slough right inguinal area there are 2 open and draining hidradenitis suppurativa ulcers Psych mental status grossly normal, thought process normal, cooperative and affect normal Debridement Note Debridement Note Wound debrided: suprapubic wound Laterality: Not Applicable Type of Debridement: Excisional debridement Anesthesia Used: 4% Lidocaine Solution, 5% Lidocaine Gel and Cetacaine Depth: Down to and including healthy tissue and in the subcutaneous layer Percentage of wound debrided: 100 Instrument Used: 5mm curette Tissue Removed: Yellow slough, devitalized tissue Severity: Fat Layer Exposed Amount of bleeding with debridement: Mild Bleeding Controlled with: Compression and gauze Patient tolerated procedure: Patient tolerated procedure well Post-Debridement Measurements and Additional Note: Post-Debridement Measurements/Treatment - Nurse 1 - General Ulcer Assessment Start: 02/09/25 13:32 Freq: Status: Active Protocol: DESMOND Activity Type Activity Date Activity User E-sign Co-sign Detail Recorded Client Recorded Date Recorded By Document 02/09/25 13:37 KW [id number] 02/09/25 13:48 KW Document 02/17/25 09:49 RB [id number] 02/17/25 09:54 RB 02/09/25 02/17/25 13:37 09:49 - Today's Visit Information Type of service Initial Visit Follow-up Visit (Physician/VISUAL ARTS TEACHER ) Arrival Mode Ambulatory Transfer Assistance None Patient Identification Verified (Name & Yes ) Patient Requires Transmission-Based No Precautions Finger Stick Blood Sugar(mg/dl) (if 115 indicated): Blood Sugar Stated by Patient Vital Signs Temperature (97.8 F-99.1 F) 96.9 F L 97 F L Temperature Source Temporal Temporal Pulse Rate (60-100) 90 81 Pulse Location Monitor Monitor Respiratory Rate (12-18) 18 18 Respiratory rate source Observation Observation Oxygen Delivery Method Room Air Blood Pressure (90/60-120/80) 115/64 108/67 Blood Pressure Mean (mm Hg) 81 80 Source Monitor Monitor Position Semi-Fowlers Semi-Fowlers Blood Pressure Location Left Arm Left Arm History Since Last Visit- (Skip if this is Patient's initial visit) Have you changed medications since your No No last visit? Any new allergies or adverse reactions No No Had a fall/change in ADL's that may No No increase risk of falls Signs or symptoms of abuse and/or No No neglect since last visit Have you been in the hospital since your No No last visit? Has dressing in place as prescribed Yes Yes Has compression in place as prescribed Yes N/A Has offloadiing in place as prescribed N/A N/A Experienced any changes in pain level or No No management Left Footwear Regular Shoe Right Footwear Regular Shoe Pain Scale: 0-10 Numeric Is Patient Pain Free? Yes No groin -Description Sharp,Throbbing ,Burning,Aching -Intensity 8 -Duration (hours) Acute -Pain Behavior Withdrawal from Touch -Pain Aggravating Factors ADL's -Alleviating Factors/Interventions Medication -Effectiveness of Alleviating Factor/ Moderately Intervention effective Communication Assessment Preferred language Serbian Histopathologist Required No Able to Read Yes Able to Write Yes Caregiver Communication Skills No Impairment Impairment Right Hearing Abillity Normal Left Hearing Abillity Normal Visual Assistive Devices Glasses Teaching Assessment Preferences Verbal,Written, Demonstration Barriers to Learning None Readiness To Learn Excellent Willingness to Engage in Self Management High Activies Readiness to Engage in Self Management High Activities Anxiety Level Calm Cooperation Cooperative Perception Coherent Interest in Health Problem Asks Questions Education Importance Acknowledges Need Does Patient Smoke tobacco or other Yes substances Smoking Status Current every day smoker Is Patient Diabetic Yes Functional Assessment Recent Decline in Ability to Perform Denies Any Declines Culture/Mosque/Sales Coach Cultural/Mosque Needs that may affect No Treatment Plan Would you allow our hospital manager control to No meet you for the purpose of spiritual/ emotional support? Sales Coach to contact place of mandaeism No WC - Nurse 1 - General Ulcer Measurement Start: 02/09/25 13:32 Freq: Status: Active Protocol: Activity Type Activity Date Activity User E-sign Co-sign Detail Recorded Client Recorded Date Recorded By Document 02/09/25 13:37 KW [id number] 02/09/25 13:48 KW Document 02/17/25 09:49 RB [id number] 02/17/25 09:54 RB 02/09/25 02/17/25 13:37 09:49 Wound Center Nurse 1 *#16 Mid Pubic Area -Combined with other wound No -Current Size (cm) - Length 5.4 4.2 -Current Size (cm) - Width 3.7 2.5 -Current Size (cm) - Depth 0.1 0.1 -Total Square Cm 19.98 10.50 -Date of Last Picture (Recall this 02/09/25 field) -Tunneling No -Undermining/Tunneling No -Circular Undermining No -Exudate Amt Small Medium -Exudate Type Serosanguineous Serosanguineous -Wound Margin Distinct, Distinct, Outline Outline Attached Attached -Granulation Amt Large (67-100%) Medium (34-66%) -Granulation Quality Red [place] -Slough/Fibrin Yes -Necrosis Amt Medium (34-66%) -Necrotic Tissue Type Adherent Slough -Structure Exposed N/A -Texture (Kassandra-wound Skin Appearance) Assessed Assessed -Moisture (Kassandra-wound Skin Appearance) Assessed Assessed -Color (Kassandra-wound Skin Appearance) Assessed Assessed -Temperature (Kassandra-wound Skin No Abnormality No Abnormality Appearance) (Pt Warm) (Pt Warm) -Tenderness on Palpation (Kassandra-wound No No Skin Appearance) -Ulcer Cleansing Soap and Water Wound Cleanser -Foul Odor after Cleansing No No -Anesthetic Used 4% Lidocaine 5% Lidocaine Solution Gel #15 L Groin -Combined with other wound No -Current Size (cm) - Length 10.2 9 -Current Size (cm) - Width 5.8 5.2 -Current Size (cm) - Depth 1.6 1.5 -Total Square Cm 59.16 46.8 -Date of Last Picture (Recall this 02/09/25 field) -Tunneling No -Undermining/Tunneling No -Circular Undermining No -Exudate Amt Large Large -Exudate Type Serosanguineous Serosanguineous -Wound Margin Distinct, Distinct, Outline Outline Attached Attached -Granulation Amt Large (67-100%) Large (67-100%) -Granulation Quality Red [place],Red -Slough/Fibrin Yes -Necrosis Amt Small (1-33%) Small (1-33%) -Necrotic Tissue Type Eschar Adherent Slough -Structure Exposed N/A -Texture (Kassadnra-wound Skin Appearance) Assessed Assessed -Moisture (Kassandra-wound Skin Appearance) Assessed Assessed -Color (Kassandra-wound Skin Appearance) Assessed Assessed -Temperature (Kassandra-wound Skin No Abnormality No Abnormality Appearance) (Pt Warm) (Pt Warm) -Tenderness on Palpation (Kassandra-wound No No Skin Appearance) -Ulcer Cleansing Soap and Water Wound Cleanser -Foul Odor after Cleansing No No -Anesthetic Used 4% Lidocaine 5% Lidocaine Solution Gel WC - Nurse 2 - General Ulcer CM Notes Start: 02/09/25 13:32 Freq: Status: Active Protocol: Activity Type Activity Date Activity User E-sign Co-sign Detail Recorded Client Recorded Date Recorded By Document 02/09/25 14:15 [id number] 02/09/25 14:28 Document 02/17/25 10:04 [id number] 02/17/25 10:24 02/09/25 02/17/25 14:15 10:04 Wound Center Nurse 2 *#16 Mid Pubic Area -Time 14:15 10:04 -Correct Patient Yes Yes -Correct Side, Site, Position Yes Yes -Correct Procedure Yes Yes -Procedure Performed Yes Yes -Type of Procedure Debridement Debridement -Clinical Debridement Subcutaneous Subcutaneous -Tissue Removed Subcutaneous Subcutaneous -Post Debridement (cm) - Length 5.3 4.5 -Post Debridement (cm) - Width 3.5 2.5 -Post Debridement (cm) - Depth 0.4 0.1 -Total Square (Post) (cm) 18.55 11.25 -Area of Debridement (cm) - Length 5.3 4.5 -Area of Debridement (cm) - Width 3.5 2.5 -Total Square (Area) (cm) 18.55 11.25 -Tunneling No -Undermining/Tunneling No -Circular Undermining No -Wound/Ulcer Outcome Not Healed Not Healed -Ulcer Cleansing Rinsed/ Rinsed/ Irrigated with Irrigated with Saline Saline -Foul Odor after Cleansing No No -Bioengineered Tissue No No -Bleeding Controlled with Pressure Pressure -Treatment Response Procedure Procedure Tolerated Well Tolerated Well -Offloading No -Debridement - Subq, 1st 20sq cm Yes No #15 L Groin -Time 14:15 10:04 -Correct Patient Yes Yes -Correct Side, Site, Position Yes Yes -Correct Procedure Yes Yes -Procedure Performed Yes Yes -Type of Procedure Debridement Debridement -Clinical Debridement Muscle / Fascia Subcutaneous -Tissue Removed Muscle Subcutaneous -Post Debridement (cm) - Length 11.0 12.0 -Post Debridement (cm) - Width 8.0 8.0 -Post Debridement (cm) - Depth 2.7 2.5 -Total Square (Post) (cm) 88.00 96.00 -Area of Debridement (cm) - Length 11.0 12.0 -Area of Debridement (cm) - Width 8.0 8.0 -Total Square (Area) (cm) 88.00 96.00 -Tunneling Yes No -Tunneling Position (O'clock) 6 -Tunneling Distance (cm) 2.2 -Undermining/Tunneling No No -Circular Undermining No No -Wound/Ulcer Outcome Not Healed Not Healed -Ulcer Cleansing Rinsed/ Rinsed/ Irrigated with Irrigated with Saline Saline -Foul Odor after Cleansing No No -Bioengineered Tissue No No -Bleeding Controlled with Pressure Pressure -Treatment Response Procedure Procedure Tolerated Well Tolerated Well -Offloading No -Debridement - Subq, 1st 20sq cm Yes -Debridement, SubQ, ea addt'l 20sq cm 5 or part thereof -Debridement - Muscle / Fascia, 1st Yes 20sq cm -Debridement, Muscle/Fascia, ea addt'l 4 20sq cm or part thereof Pain Scale: 0-10 Numeric Is Patient Pain Free? Yes Yes WC - Nurse 3 - General Ulcer D/C NN Start: 02/09/25 13:32 Freq: Status: Active Protocol: Activity Type Activity Date Activity User E-sign Co-sign Detail Recorded Client Recorded Date Recorded By Document 02/09/25 14:38 [facility] [id number] 02/09/25 14:41 [facility] Document 02/17/25 12:30 RB [id number] 02/17/25 12:31 RB 02/09/25 02/17/25 14:38 12:30 Wound Care Center Nurse 3 *#16 Mid Pubic Area -Ulcer Cleansing Soap and Water Rinsed/ Irrigated with Saline -Foul Odor after Cleansing No -Primary Dressing Applied Hysept Fibracol Plus 4x4 -Other Dressing dakins moist gauze -Primary Dressing Covered/Secured with Secured with Dry Gauze, Tape Secured with Tape -Other Covering abd, drsg per dl lathe operator -Fibracol Plus 4x4 1 -Hysept 1 #15 L Groin -Ulcer Cleansing Rinsed/ Rinsed/ Irrigated with Irrigated with Saline Saline -Foul Odor after Cleansing No -Other Dressing dakins moist dakins gauze; abd; moistened gauze drsg per dl lathe operator ; kerlix wrap per pt request -Primary Dressing Covered/Secured with Secured with Dry Gauze & Tape Roll Gauze, Secured with Tape -Wound Comment(s) feliciano around right thigh Treatment Response Procedure Procedure Tolerated Well Tolerated Well Pain Scale: 0-10 Numeric Is Patient Pain Free? Yes Yes WC - Visit Discharge Discharge Condition Stable Stable Ambulatory Status Ambulatory Ambulatory Transportation Private Auto Private Auto Medication Reconcilliation completed & No provided to patient/care provider Clinical Summary of Care Provided Yes Additional Wound Wound debrided: left inguinal/gluteal/perineum wound Laterality: Left Type of Debridement: Excisional debridement Anesthesia Used: 4% Lidocaine Solution, 5% Lidocaine Gel and Cetacaine Depth: Down to and including healthy tissue, in the subcutaneous layer and to muscle Percentage of wound debrided: 100 Instrument Used: 5mm curette Tissue Removed: Yellow slough, devitalized tissue Severity: Fat Layer Exposed Amount of bleeding with debridement: Mild Bleeding Controlled with: Compression and gauze Patient tolerated procedure: Patient tolerated procedure well Assessment/Plan Assessment/Plan (1) Open wound of pubic region without complication: CODE(S): S31.000A - Unspecified open wound of lower back and pelvis without penetration into retroperitoneum, initial encounter QUALIFIERS: Encounter type: subsequent encounter Qualified Code(s): S31.000D - Unspecified open wound of lower back and pelvis without penetration into retroperitoneum, subsequent encounter (2) Open wound of inguinal region: CODE(S): S31.109A - Unspecified open wound of abdominal wall, unspecified quadrant without penetration into peritoneal cavity, initial encounter QUALIFIERS: Encounter type: subsequent encounter Qualified Code(s): S31.109D - Unspecified open wound of abdominal wall, unspecified quadrant without penetration into peritoneal cavity, subsequent encounter (3) Hypertension: CODE(S): I10 - Essential (primary) hypertension QUALIFIERS: Hypertension type: unspecified Qualified Code(s): I10 - Essential (primary) hypertension (4) Non-healing surgical wound: CODE(S): T81.89XA - Other complications of procedures, not elsewhere classified, initial encounter QUALIFIERS: Encounter type: subsequent encounter Qualified Code(s): T81.89XD - Other complications of procedures, not elsewhere classified, subsequent encounter (5) Hidradenitis suppurativa: CODE(S): L73.2 - Hidradenitis suppurativa (6) Skin ulcer of abdomen with fat layer exposed: CODE(S): L98.492 - Non-pressure chronic ulcer of skin of other sites with fat layer exposed (7) Skin ulcer of left groin with necrosis of muscle: CODE(S): L98.493 - Non-pressure chronic ulcer of skin of other sites with necrosis of muscle PLAN: Plan Debridement performed today in clinic as annotated above. At home wound-care instructions: The patient will wash with antibacterial soap and water and then will apply Fibracol dressing to the suprapubic area and cover with gauze and continue Dakins wet to dry packing of left inguinal/perineum/groin daily. Keep dressing clean and dry. Off-loading: The patient was instructed to avoid pressure and friction on the affected areas. Reposition every 2 hours at minimum. Avoid prolonged standing and/or dangling of legs. When seated, feet should be elevated at chest level. Frequent ambulation is encouraged. Diet: Patient encouraged to increase protein intake while taking caution to avoid high carbohydrate and/or sugar intake. Labs/cultures/imaging: none currently Follow-up: Return in 1 week for wound care follow up. Return sooner or report to the emergency room should symptoms worsen, or new symptoms arise. Note: [employer] speech recognition pathology transcriptionist software was used to create portions of this document. Sound-alike and misspelled words, as well as other pathology transcriptionist errors may be contained in the documentation.
[2025-02-24 10:05] VITALS: BP 110/64; PULSE 73; RESP 18; TEMP 36.2
--- NOTE | 2025-02-24 15:13 | PCM.WC.PN ---
History of Present Illness Date of Service: 02/24/25 Chief Complaint: surgical wounds of suprapubic and left/right groin/perineum History of Wound: Mr. Theron Magaña is a 40 y/o male who presents to the wound center today for evaluation and management of his intertriginous wounds as referred by his plastic surgeon Dr. Valle of [facility]. Mr. Magaña has Hidradenitis Suppurative. Mid-January, he had surgery by Dr. Larson to address his HS lesions within his groin. Many of these were able to be closed with sutures, but 2 were left open. He has a relatively small, superficial open wound midline pelvic region and a larger, deeper wound in the inguinal/gluteal cleft. His is a nurse practitioner and cares for his wounds at home. Right now, they are applying wet-to-dry Dakins dressings to the open wounds; cleansing closed wounds with Hibiclens; changing daily. He is currently on Augmentin at the direction of his plastic surgeon. He saw his surgeon this week and Ciprofloxacin was prescribed to treat Pseudomonas infection. He has been dealing with these and similar wound/HS lesions for many years. In the past, he has had wound vacs and the changes were very painful for him. He has tried a few biologics without consistent success; was recently started on one called Bimzelx but too soon to tell if it is providing improvement. Objective Data Objective Data Vital Signs: Vital Signs Temp Pulse Resp BP O2 Del Method 97.2 F L 73 18 110/64 Room Air 02/24/25 10:05 02/24/25 10:05 02/24/25 10:02/24/25 10:02/09/25 13:37 Oxygen Delivery Method Room Air Physical Exam Const alert, oriented x3 and no apparent distress General Appearance: cooperative and comfortable HEENT normocephalic and head/scalp atraumatic Resp normal respiratory effort Effort and Inspection: able to speak in complete sentences Cardio regular rate and regular rhythm Skin Wounds: wounds noted Wound Narrative: as in clinical panel Within the pelvic region there are several closed surgical wounds which are well-healing; in the mid-line there is a surgical wound which is open, superficial, with good granulation tissue at the base with minimal associated slough. There is no surrounding erythema, excess warmth, fluctuance, or induration. In the left inguinal area there is a large open surgical wound with irregular/varying depth but at the deepest to the muscular layer; 100% granular wound base with mild associated slough right inguinal area there are 2 open and draining hidradenitis suppurativa ulcers Psych mental status grossly normal, thought process normal, cooperative and affect normal Debridement Note Debridement Note Wound debrided: suprapubic wound Laterality: Not Applicable Type of Debridement: Excisional debridement Anesthesia Used: 4% Lidocaine Solution, 5% Lidocaine Gel and Cetacaine Depth: Down to and including healthy tissue and in the subcutaneous layer Percentage of wound debrided: 100 Instrument Used: 5mm curette Tissue Removed: Yellow slough, devitalized tissue Severity: Fat Layer Exposed Amount of bleeding with debridement: Mild Bleeding Controlled with: Compression and gauze Patient tolerated procedure: Patient tolerated procedure well Post-Debridement Measurements and Additional Note: Post-Debridement Measurements/Treatment - Nurse 1 - General Ulcer Assessment Start: 02/09/25 13:32 Freq: Status: Active Protocol: CHAVA Activity Type Activity Date Activity User E-sign Co-sign Detail Recorded Client Recorded Date Recorded By Document 02/09/25 13:37 KW [id number] 02/09/25 13:48 KW Document 02/17/25 09:49 RB [id number] 02/17/25 09:54 RB Document 02/24/25 10:05 RB [id number] 02/24/25 10:20 RB 02/09/25 02/17/25 02/24/25 13:37 09:49 10:05 - Today's Visit Information Type of service Initial Visit Follow-up Visit Follow-up Visit (Physician/WREATH INSPECTOR (Physician/WREATH INSPECTOR ) ) Arrival Mode Ambulatory Ambulatory Transfer Assistance None None Patient Identification Verified (Name & Yes Yes ) Patient Requires Transmission-Based No No Precautions Finger Stick Blood Sugar(mg/dl) (if 115 indicated): Blood Sugar Stated by Patient Vital Signs Temperature (97.8 F-99.1 F) 96.9 F L 97 F L 97.2 F L Temperature Source Temporal Temporal Temporal Pulse Rate (60-100) 90 81 73 Pulse Location Monitor Monitor Monitor Respiratory Rate (12-18) 18 18 18 Respiratory rate source Observation Observation Observation Oxygen Delivery Method Room Air Blood Pressure (90/60-120/80) 115/64 108/67 110/64 Blood Pressure Mean (mm Hg) 81 80 79 Source Monitor Monitor Monitor Position Semi-Fowlers Semi-Fowlers Semi-Fowlers Blood Pressure Location Left Arm Left Arm Left Arm History Since Last Visit- (Skip if this is Patient's initial visit) Have you changed medications since your No No No last visit? Any new allergies or adverse reactions No No No Had a fall/change in ADL's that may No No No increase risk of falls Signs or symptoms of abuse and/or No No No neglect since last visit Have you been in the hospital since your No No No last visit? Has dressing in place as prescribed Yes Yes Yes Has compression in place as prescribed Yes N/A Yes Has offloadiing in place as prescribed N/A N/A N/A Experienced any changes in pain level or No No No management Left Footwear Regular Shoe Right Footwear Regular Shoe Pain Scale: 0-10 Numeric Is Patient Pain Free? Yes No No groin -Description Sharp,Throbbing Aching ,Burning,Aching -Intensity 8 6 -Duration (hours) Acute Acute -Pain Behavior Withdrawal from Irritability Touch -Pain Aggravating Factors ADL's Exercise/ Activity -Alleviating Factors/Interventions Medication Medication -Effectiveness of Alleviating Factor/ Moderately Moderately Intervention effective effective Communication Assessment Preferred language Greek Roll Handler Required No Able to Read Yes Able to Write Yes Caregiver Communication Skills No Impairment Impairment Right Hearing Abillity Normal Left Hearing Abillity Normal Visual Assistive Devices Glasses Teaching Assessment Preferences Verbal,Written, Demonstration Barriers to Learning None Readiness To Learn Excellent Willingness to Engage in Self Management High Activies Readiness to Engage in Self Management High Activities Anxiety Level Calm Cooperation Cooperative Perception Coherent Interest in Health Problem Asks Questions Education Importance Acknowledges Need Does Patient Smoke tobacco or other Yes substances Smoking Status Current every day smoker Is Patient Diabetic Yes Functional Assessment Recent Decline in Ability to Perform Denies Any Declines 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 Mainframe Systems Administrator to contact place of amish No WC - Nurse 1 - General Ulcer Measurement Start: 02/09/25 13:32 Freq: Status: Active Protocol: Activity Type Activity Date Activity User E-sign Co-sign Detail Recorded Client Recorded Date Recorded By Document 02/09/25 13:37 KW [id number] 02/09/25 13:48 KW Document 02/17/25 09:49 RB [id number] 02/17/25 09:54 RB Document 02/24/25 10:05 RB [id number] 02/24/25 10:20 RB 02/09/25 02/17/25 02/24/25 13:37 09:49 10:05 Wound Center Nurse 1 17. R groin -Combined with other wound No -Current Size (cm) - Length 4 -Current Size (cm) - Width 1.5 -Current Size (cm) - Depth 2 -Total Square Cm 6.0 -Photo Taken Yes -Tunneling No -Undermining/Tunneling No -Circular Undermining No -Exudate Amt Large -Exudate Type Serosanguineous -Wound Margin Distinct, Outline Attached -Granulation Amt Large (67-100%) -Granulation Quality Aguanga,Red -Slough/Fibrin Yes -Necrosis Amt Small (1-33%) -Necrotic Tissue Type Adherent Slough -Structure Exposed N/A -Texture (Kassandra-wound Skin Appearance) Assessed, Scarring -Moisture (Kassandra-wound Skin Appearance) Assessed -Color (Kassandra-wound Skin Appearance) Assessed -Temperature (Kassandra-wound Skin No Abnormality Appearance) (Pt Warm) -Tenderness on Palpation (Kassandra-wound No Skin Appearance) -Ulcer Cleansing Wound Cleanser -Foul Odor after Cleansing No -Anesthetic Used 4% Lidocaine Solution *#16 Mid Pubic Area -Combined with other wound No No -Current Size (cm) - Length 5.4 4.2 4.8 -Current Size (cm) - Width 3.7 2.5 3 -Current Size (cm) - Depth 0.1 0.1 0.1 -Total Square Cm 19.98 10.50 14.4 -Date of Last Picture (Recall this 02/09/25 field) -Photo Taken Yes -Tunneling No No -Undermining/Tunneling No No -Circular Undermining No No -Exudate Amt Small Medium Large -Exudate Type Serosanguineous Serosanguineous Serosanguineous -Wound Margin Distinct, Distinct, Distinct, Outline Outline Outline Attached Attached Attached -Granulation Amt Large (67-100%) Medium (34-66%) Medium (34-66%) -Granulation Quality Red Aguanga Aguanga,Red -Slough/Fibrin Yes Yes -Necrosis Amt Medium (34-66%) Small (1-33%) -Necrotic Tissue Type Adherent Slough Adherent Slough -Structure Exposed N/A N/A -Texture (Kassandra-wound Skin Appearance) Assessed Assessed Assessed, Scarring -Moisture (Kassandra-wound Skin Appearance) Assessed Assessed Assessed -Color (Kassandra-wound Skin Appearance) Assessed Assessed Assessed -Temperature (Kassandra-wound Skin No Abnormality No Abnormality No Abnormality Appearance) (Pt Warm) (Pt Warm) (Pt Warm) -Tenderness on Palpation (Kassandra-wound No No No Skin Appearance) -Ulcer Cleansing Soap and Water Wound Cleanser Wound Cleanser -Foul Odor after Cleansing No No No -Anesthetic Used 4% Lidocaine 5% Lidocaine 4% Lidocaine Solution Gel Solution #15 L Groin -Combined with other wound No No -Current Size (cm) - Length 10.2 9 11.5 -Current Size (cm) - Width 5.8 5.2 8.5 -Current Size (cm) - Depth 1.6 1.5 1 -Total Square Cm 59.16 46.8 97.75 -Date of Last Picture (Recall this 02/09/25 field) -Photo Taken Yes -Tunneling No No -Undermining/Tunneling No No -Circular Undermining No No -Exudate Amt Large Large Large -Exudate Type Serosanguineous Serosanguineous Serosanguineous -Wound Margin Distinct, Distinct, Distinct, Outline Outline Outline Attached Attached Attached -Granulation Amt Large (67-100%) Large (67-100%) Medium (34-66%) -Granulation Quality Red Aguanga,Red Aguanga,Red -Slough/Fibrin Yes Yes -Necrosis Amt Small (1-33%) Small (1-33%) Small (1-33%) -Necrotic Tissue Type Eschar Adherent Slough Adherent Slough -Structure Exposed N/A N/A -Texture (Kassandra-wound Skin Appearance) Assessed Assessed Scarring -Moisture (Kassandra-wound Skin Appearance) Assessed Assessed Assessed -Color (Kassandra-wound Skin Appearance) Assessed Assessed Assessed -Temperature (Kassandra-wound Skin No Abnormality No Abnormality No Abnormality Appearance) (Pt Warm) (Pt Warm) (Pt Warm) -Tenderness on Palpation (Kassandra-wound No No No Skin Appearance) -Ulcer Cleansing Soap and Water Wound Cleanser Wound Cleanser -Foul Odor after Cleansing No No No -Anesthetic Used 4% Lidocaine 5% Lidocaine 4% Lidocaine Solution Gel Solution WC - Nurse 2 - General Ulcer CM Notes Start: 02/09/25 13:32 Freq: Status: Active Protocol: Activity Type Activity Date Activity User E-sign Co-sign Detail Recorded Client Recorded Date Recorded By Document 02/09/25 14:15 [id number] 02/09/25 14:28 Document 02/17/25 10:04 [id number] 02/17/25 10:24 Document 02/24/25 10:42 [id number] 02/24/25 11:13 02/09/25 02/17/25 02/24/25 14:15 10:04 10:42 Wound Center Nurse 2 17. R groin -Time 10:42 -Correct Patient Yes -Correct Side, Site, Position Yes -Correct Procedure Yes -Procedure Performed Yes -Type of Procedure Debridement -Clinical Debridement Subcutaneous -Tissue Removed Subcutaneous -Post Debridement (cm) - Length 4.0 -Post Debridement (cm) - Width 1.0 -Post Debridement (cm) - Depth 1.8 -Total Square (Post) (cm) 4.00 -Area of Debridement (cm) - Length 4.0 -Area of Debridement (cm) - Width 1.0 -Total Square (Area) (cm) 4.00 -Tunneling No -Undermining/Tunneling No -Circular Undermining No -Wound/Ulcer Outcome Not Healed -Ulcer Cleansing Rinsed/ Irrigated with Saline -Foul Odor after Cleansing No -Bioengineered Tissue No -Bleeding Controlled with Pressure -Offloading No -Debridement - Subq, 1st 20sq cm No *#16 Mid Pubic Area -Time 14:15 10:04 10:42 -Correct Patient Yes Yes Yes -Correct Side, Site, Position Yes Yes Yes -Correct Procedure Yes Yes Yes -Procedure Performed Yes Yes Yes -Type of Procedure Debridement Debridement Debridement -Clinical Debridement Subcutaneous Subcutaneous Subcutaneous -Tissue Removed Subcutaneous Subcutaneous Subcutaneous -Post Debridement (cm) - Length 5.3 4.5 4.3 -Post Debridement (cm) - Width 3.5 2.5 3.0 -Post Debridement (cm) - Depth 0.4 0.1 0.1 -Total Square (Post) (cm) 18.55 11.25 12.90 -Area of Debridement (cm) - Length 5.3 4.5 4.3 -Area of Debridement (cm) - Width 3.5 2.5 3.0 -Total Square (Area) (cm) 18.55 11.25 12.90 -Tunneling No No -Undermining/Tunneling No No -Circular Undermining No No -Wound/Ulcer Outcome Not Healed Not Healed Not Healed -Ulcer Cleansing Rinsed/ Rinsed/ Rinsed/ Irrigated with Irrigated with Irrigated with Saline Saline Saline -Foul Odor after Cleansing No No No -Bioengineered Tissue No No No -Bleeding Controlled with Pressure Pressure Pressure -Treatment Response Procedure Procedure Procedure Tolerated Well Tolerated Well Tolerated Well -Offloading No No -Debridement - Subq, 1st 20sq cm Yes No No #15 L Groin -Time 14:15 10:04 10:43 -Correct Patient Yes Yes Yes -Correct Side, Site, Position Yes Yes Yes -Correct Procedure Yes Yes Yes -Procedure Performed Yes Yes Yes -Type of Procedure Debridement Debridement Debridement -Clinical Debridement Muscle / Fascia Subcutaneous Subcutaneous -Tissue Removed Muscle Subcutaneous Subcutaneous -Post Debridement (cm) - Length 11.0 12.0 11.5 -Post Debridement (cm) - Width 8.0 8.0 8.5 -Post Debridement (cm) - Depth 2.7 2.5 1.0 -Total Square (Post) (cm) 88.00 96.00 97.75 -Area of Debridement (cm) - Length 11.0 12.0 11.5 -Area of Debridement (cm) - Width 8.0 8.0 8.5 -Total Square (Area) (cm) 88.00 96.00 97.75 -Tunneling Yes No Yes -Tunneling Position (O'clock) 6 6 -Tunneling Distance (cm) 2.2 1.0 -Undermining/Tunneling No No No -Circular Undermining No No No -Wound/Ulcer Outcome Not Healed Not Healed Not Healed -Ulcer Cleansing Rinsed/ Rinsed/ Rinsed/ Irrigated with Irrigated with Irrigated with Saline Saline Saline -Foul Odor after Cleansing No No No -Bioengineered Tissue No No No -Bleeding Controlled with Pressure Pressure Pressure -Treatment Response Procedure Procedure Procedure Tolerated Well Tolerated Well Tolerated Well -Offloading No -Debridement - Subq, 1st 20sq cm Yes Yes -Debridement, SubQ, ea addt'l 20sq cm 5 5 or part thereof -Debridement - Muscle / Fascia, 1st Yes 20sq cm -Debridement, Muscle/Fascia, ea addt'l 4 20sq cm or part thereof Pain Scale: 0-10 Numeric Is Patient Pain Free? Yes Yes Yes WC - Nurse 3 - General Ulcer D/C NN Start: 02/09/25 13:32 Freq: Status: Active Protocol: Activity Type Activity Date Activity User E-sign Co-sign Detail Recorded Client Recorded Date Recorded By Document 02/09/25 14:38 BM [id number] 02/09/25 14:41 BMF Document 02/17/25 12:30 RB [id number] 02/17/25 12:31 RB Document 02/24/25 11:37 DS [id number] 02/24/25 11:53 DS 02/09/25 02/17/25 02/24/25 14:38 12:30 11:37 Wound Care Center Nurse 3 17. R groin -Primary Dressing Applied Hysept -Other Dressing abd -Primary Dressing Covered/Secured with Dry Gauze, Secured with Tape -Hysept 0 *#16 Mid Pubic Area -Ulcer Cleansing Soap and Water Rinsed/ Irrigated with Saline -Foul Odor after Cleansing No -Primary Dressing Applied Hysept Fibracol Plus Fibracol Plus 4x4 4x4 -Other Dressing dakins moist gauze -Primary Dressing Covered/Secured with Secured with Dry Gauze, Dry Gauze Tape Secured with Tape -Other Covering abd, drsg per dl refractory bricklayer -Fibracol Plus 4x4 1 1 -Hysept 1 #15 L Groin -Ulcer Cleansing Rinsed/ Rinsed/ Irrigated with Irrigated with Saline Saline -Foul Odor after Cleansing No -Primary Dressing Applied Hysept -Other Dressing dakins moist dakins abd gauze; abd; moistened gauze drsg per dl refractory bricklayer ; kerlix wrap per pt request -Primary Dressing Covered/Secured with Secured with Dry Gauze & Dry Gauze, Tape Roll Gauze, Secured with Secured with Tape Tape -Hysept 0 -Wound Comment(s) feliciano around right thigh Treatment Response Procedure Procedure Tolerated Well Tolerated Well Pain Scale: 0-10 Numeric Is Patient Pain Free? Yes Yes No groin -Description Sharp -Intensity 5 -Duration (hours) Chronic -Pain Behavior Guarding, Grasping Site -Alleviating Factors/Interventions Turning/ Repositioning, Patient denies need for intervention WC - Visit Discharge Discharge Condition Stable Stable Stable Ambulatory Status Ambulatory Ambulatory Ambulatory,Cane Transportation Private Auto Private Auto Private Auto Medication Reconcilliation completed & No provided to patient/care provider Clinical Summary of Care Provided Yes Additional Wound Wound debrided: left inguinal/gluteal/perineum wound Laterality: Left Type of Debridement: Excisional debridement Anesthesia Used: 4% Lidocaine Solution, 5% Lidocaine Gel and Cetacaine Depth: Down to and including healthy tissue, in the subcutaneous layer and to muscle Percentage of wound debrided: 100 Instrument Used: 5mm curette Tissue Removed: Yellow slough, devitalized tissue Severity: Fat Layer Exposed Amount of bleeding with debridement: Mild Bleeding Controlled with: Compression and gauze Patient tolerated procedure: Patient tolerated procedure well Additional Wound Wound debrided: Right groin/inguinal region Laterality: Right Type of Debridement: Excisional debridement Anesthesia Used: 4% Lidocaine Solution, 5% Lidocaine Gel and Cetacaine Depth: Down to and including healthy tissue and in the subcutaneous layer Percentage of wound debrided: 100 Instrument Used: 5mm curette Tissue Removed: Yellow slough, devitalized tissue Severity: Fat Layer Exposed Amount of bleeding with debridement: Mild Bleeding Controlled with: Compression and gauze Patient tolerated procedure: Patient tolerated procedure well Assessment/Plan Assessment/Plan (1) Open wound of pubic region without complication: CODE(S): S31.000A - Unspecified open wound of lower back and pelvis without penetration into retroperitoneum, initial encounter QUALIFIERS: Encounter type: subsequent encounter Qualified Code(s): S31.000D - Unspecified open wound of lower back and pelvis without penetration into retroperitoneum, subsequent encounter (2) Open wound of inguinal region: CODE(S): S31.109A - Unspecified open wound of abdominal wall, unspecified quadrant without penetration into peritoneal cavity, initial encounter QUALIFIERS: Encounter type: subsequent encounter Qualified Code(s): S31.109D - Unspecified open wound of abdominal wall, unspecified quadrant without penetration into peritoneal cavity, subsequent encounter (3) Hypertension: CODE(S): I10 - Essential (primary) hypertension QUALIFIERS: Hypertension type: unspecified Qualified Code(s): I10 - Essential (primary) hypertension (4) Non-healing surgical wound: CODE(S): T81.89XA - Other complications of procedures, not elsewhere classified, initial encounter QUALIFIERS: Encounter type: subsequent encounter Qualified Code(s): T81.89XD - Other complications of procedures, not elsewhere classified, subsequent encounter (5) Hidradenitis suppurativa: CODE(S): L73.2 - Hidradenitis suppurativa (6) Skin ulcer of abdomen with fat layer exposed: CODE(S): L98.492 - Non-pressure chronic ulcer of skin of other sites with fat layer exposed (7) Skin ulcer of left groin with necrosis of muscle: CODE(S): L98.493 - Non-pressure chronic ulcer of skin of other sites with necrosis of muscle (8) Skin ulcer of right groin with fat layer exposed: CODE(S): L98.492 - Non-pressure chronic ulcer of skin of other sites with fat layer exposed PLAN: Plan Debridement performed today in clinic as annotated above. At home wound-care instructions: The patient will wash with antibacterial soap and water and then will apply Fibracol dressing to the suprapubic area and cover with gauze and continue Dakins wet to dry packing of left inguinal/perineum/groin daily as well as right inguinal/groin ulcer daily. Keep dressing clean and dry. Off-loading: The patient was instructed to avoid pressure and friction on the affected areas. Reposition every 2 hours at minimum. Avoid prolonged standing and/or dangling of legs. When seated, feet should be elevated at chest level. Frequent ambulation is encouraged. Diet: Patient encouraged to increase protein intake while taking caution to avoid high carbohydrate and/or sugar intake. Labs/cultures/imaging: none currently Follow-up: Return in 1 week for wound care follow up. Return sooner or report to the emergency room should symptoms worsen, or new symptoms arise. Note: [employer] speech recognition compliance mgr software was used to create portions of this document. Sound-alike and misspelled words, as well as other compliance mgr errors may be contained in the documentation.
--- NOTE | 2025-02-27 13:13 | WC ---
PHOTO 02/24/25 LEFT GROIN
--- NOTE | 2025-02-27 13:14 | WC ---
PHOTO 02/27/25 RIGHT LEG
[2025-03-03 11:42] VITALS: BP 101/63; PULSE 74; RESP 14; TEMP 36.6
--- NOTE | 2025-03-03 12:30 | WC ---
PHOTO 03/03/25 LEFT GROIN
--- NOTE | 2025-03-03 12:31 | WC ---
PHOTO 03/03/25 RIGHT GROIN
--- NOTE | 2025-03-03 12:32 | WC ---
PHOTO 03/03/25 LEFT GROIN
--- NOTE | 2025-03-03 15:03 | PCM.WC.PN ---
History of Present Illness Date of Service: 03/03/25 Chief Complaint: surgical wounds of suprapubic and left/right groin/perineum History of Wound: Mr. Theron Magaña is a 40 y/o male who presents to the wound center today for evaluation and management of his intertriginous wounds as referred by his plastic surgeon Dr. Valle of [facility]. Mr. Magaña has Hidradenitis Suppurative. Mid-January, he had surgery by Dr. Larson to address his HS lesions within his groin. Many of these were able to be closed with sutures, but 2 were left open. He has a relatively small, superficial open wound midline pelvic region and a larger, deeper wound in the inguinal/gluteal cleft. His is a nurse practitioner and cares for his wounds at home. Right now, they are applying wet-to-dry Dakins dressings to the open wounds; cleansing closed wounds with Hibiclens; changing daily. He is currently on Augmentin at the direction of his plastic surgeon. He saw his surgeon this week and Ciprofloxacin was prescribed to treat Pseudomonas infection. He has been dealing with these and similar wound/HS lesions for many years. In the past, he has had wound vacs and the changes were very painful for him. He has tried a few biologics without consistent success; was recently started on one called Bimzelx but too soon to tell if it is providing improvement. Subjective Rohini Crump returns today for follow up of bilateral inguinal surgical wounds. He is tolerating Dakins wet to dry dressings to inguinal areas and Fibracol to the suprapubic area. He had seen Dr. Valle earlier this week and was taken to surgery to debride and open the right inguinal area that broke out with a flare of hidradenitis. His pain is better. He is having moderate drainage. He denies fever, chills, odor. Objective Data Objective Data Vital Signs: Vital Signs Temp Pulse Resp BP O2 Del Method 97.8 F 74 14 101/63 Room Air 03/03/25 11:42 03/03/25 11:42 03/03/25 11:42 03/03/25 11:42 02/09/25 13:37 Oxygen Delivery Method Room Air Physical Exam Const alert, oriented x3 and no apparent distress General Appearance: cooperative and comfortable HEENT normocephalic and head/scalp atraumatic Resp normal respiratory effort Effort and Inspection: able to speak in complete sentences Cardio regular rate and regular rhythm Skin Wounds: wounds noted Wound Narrative: as in clinical panel Within the pelvic region there are several closed surgical wounds which are well-healing; in the mid-line there is a surgical wound which is open, superficial, with good granulation tissue at the base with minimal associated slough. There is no surrounding erythema, excess warmth, fluctuance, or induration. In the left inguinal area there is a large open surgical wound with irregular/varying depth but at the deepest to the muscular layer; 100% granular wound base with mild associated slough right inguinal area there are 2 open and draining hidradenitis suppurativa ulcers Psych mental status grossly normal, thought process normal, cooperative and affect normal Debridement Note Debridement Note Wound debrided: suprapubic wound Laterality: Not Applicable Type of Debridement: Selective debridement Anesthesia Used: 4% Lidocaine Solution and 5% Lidocaine Gel Depth: Down to and including healthy tissue and in the subcutaneous layer Percentage of wound debrided: 100 Instrument Used: - (gauze) Tissue Removed: Yellow slough, devitalized tissue Severity: Fat Layer Exposed Amount of bleeding with debridement: Mild Bleeding Controlled with: Compression and gauze Patient tolerated procedure: Patient tolerated procedure well Post-Debridement Measurements and Additional Note: Post-Debridement Measurements/Treatment - Nurse 1 - General Ulcer Assessment Start: 02/09/25 13:32 Freq: Status: Active Protocol: DESMOND Activity Type Activity Date Activity User E-sign Co-sign Detail Recorded Client Recorded Date Recorded By Document 02/09/25 13:37 KW [id number] 02/09/25 13:48 KW Document 02/17/25 09:49 RB [id number] 02/17/25 09:54 RB Document 02/24/25 10:05 RB [id number] 02/24/25 10:20 RB Document 03/03/25 11:42 ML [id number] 03/03/25 12:00 ML 02/09/25 02/17/25 02/24/25 13:37 09:49 10:05 - Today's Visit Information Type of service Initial Visit Follow-up Visit Follow-up Visit (Physician/SNOW GROOMER (Physician/SNOW GROOMER ) ) Arrival Mode Ambulatory Ambulatory Transfer Assistance None None Patient Identification Verified (Name & Yes Yes ) Patient Requires Transmission-Based No No Precautions Finger Stick Blood Sugar(mg/dl) (if 115 indicated): Blood Sugar Stated by Patient Vital Signs Temperature (97.8 F-99.1 F) 96.9 F L 97 F L 97.2 F L Temperature Source Temporal Temporal Temporal Pulse Rate (60-100) 90 81 73 Pulse Location Monitor Monitor Monitor Respiratory Rate (12-18) 18 18 18 Respiratory rate source Observation Observation Observation Oxygen Delivery Method Room Air Blood Pressure (90/60-120/80) 115/64 108/67 110/64 Blood Pressure Mean (mm Hg) 81 80 79 Source Monitor Monitor Monitor Position Semi-Fowlers Semi-Fowlers Semi-Fowlers Blood Pressure Location Left Arm Left Arm Left Arm History Since Last Visit- (Skip if this is Patient's initial visit) Have you changed medications since your No No No last visit? Any new allergies or adverse reactions No No No Had a fall/change in ADL's that may No No No increase risk of falls Signs or symptoms of abuse and/or No No No neglect since last visit Have you been in the hospital since your No No No last visit? Has dressing in place as prescribed Yes Yes Yes Has compression in place as prescribed Yes N/A Yes Has offloadiing in place as prescribed N/A N/A N/A Experienced any changes in pain level or No No No management Left Footwear Regular Shoe Right Footwear Regular Shoe Pain Scale: 0-10 Numeric Is Patient Pain Free? Yes No No groin -Description Sharp,Throbbing Aching ,Burning,Aching -Intensity 8 6 -Duration (hours) Acute Acute -Pain Behavior Withdrawal from Irritability Touch -Pain Aggravating Factors ADL's Exercise/ Activity -Alleviating Factors/Interventions Medication Medication -Effectiveness of Alleviating Factor/ Moderately Moderately Intervention effective effective Communication Assessment Preferred language Bengali Lieutenant Fire Fighter Required No Able to Read Yes Able to Write Yes Caregiver Communication Skills No Impairment Impairment Right Hearing Abillity Normal Left Hearing Abillity Normal Visual Assistive Devices Glasses Teaching Assessment Preferences Verbal,Written, Demonstration Barriers to Learning None Readiness To Learn Excellent Willingness to Engage in Self Management High Activies Readiness to Engage in Self Management High Activities Anxiety Level Calm Cooperation Cooperative Perception Coherent Interest in Health Problem Asks Questions Education Importance Acknowledges Need Does Patient Smoke tobacco or other Yes substances Smoking Status Current every day smoker Is Patient Diabetic Yes Functional Assessment Recent Decline in Ability to Perform Denies Any Declines Culture/Baptist/Field Education Coordinator Cultural/Baptist Needs that may affect No Treatment Plan Would you allow our hospital organic preparation technician to No meet you for the purpose of spiritual/ emotional support? Field Education Coordinator to contact place of scientology No 03/03/25 11:42 - Today's Visit Information Type of service Follow-up Visit (Physician/SNOW GROOMER ) Arrival Mode Ambulatory,Cane Transfer Assistance None Patient Identification Verified (Name & Yes ) Patient Requires Transmission-Based No Precautions Finger Stick Blood Sugar(mg/dl) (if indicated): Blood Sugar Vital Signs Temperature (97.8 F-99.1 F) 97.8 F Temperature Source Temporal Pulse Rate (60-100) 74 Pulse Location Monitor Respiratory Rate (12-18) 14 Respiratory rate source Observation Oxygen Delivery Method Blood Pressure (90/60-120/80) 101/63 Blood Pressure Mean (mm Hg) 75 Source Monitor Position Sitting Blood Pressure Location Right Arm History Since Last Visit- (Skip if this is Patient's initial visit) Have you changed medications since your No last visit? Any new allergies or adverse reactions No Had a fall/change in ADL's that may No increase risk of falls Signs or symptoms of abuse and/or No neglect since last visit Have you been in the hospital since your Yes last visit? Has dressing in place as prescribed No Has compression in place as prescribed N/A Has offloadiing in place as prescribed N/A Experienced any changes in pain level or No management Left Footwear Right Footwear Pain Scale: 0-10 Numeric Is Patient Pain Free? No groin -Description -Intensity -Duration (hours) -Pain Behavior -Pain Aggravating Factors -Alleviating Factors/Interventions -Effectiveness of Alleviating Factor/ Intervention Communication Assessment Preferred foreign language professor Required Able to Read Able to Write Caregiver Communication Skills Impairment Right Hearing Abillity Left Hearing Abillity Visual Assistive Devices Teaching Assessment Preferences Barriers to Learning Readiness To Learn Willingness to Engage in Self Management Activies Readiness to Engage in Self Management Activities Anxiety Level Cooperation Perception Interest in Health Problem Education Importance Does Patient Smoke tobacco or other substances Smoking Status Is Patient Diabetic Functional Assessment Recent Decline in Ability to Perform Culture/Baptist/Field Education Coordinator Cultural/Baptist Needs that may affect Treatment Plan Would you allow our hospital organic preparation technician to meet you for the purpose of spiritual/ emotional support? Field Education Coordinator to contact place of scientology LISA - Nurse 1 - General Ulcer Measurement Start: 02/09/25 13:32 Freq: Status: Active Protocol: Activity Type Activity Date Activity User E-sign Co-sign Detail Recorded Client Recorded Date Recorded By Document 02/09/25 13:37 KW [id number] 02/09/25 13:48 KW Document 02/17/25 09:49 RB [id number] 02/17/25 09:54 RB Document 02/24/25 10:05 RB [id number] 02/24/25 10:20 RB Document 03/03/25 11:42 ML [id number] 03/03/25 12:00 ML 02/09/25 02/17/25 02/24/25 13:37 09:49 10:05 Wound Center Nurse 1 17. R groin -Combined with other wound No -Current Size (cm) - Length 4 -Current Size (cm) - Width 1.5 -Current Size (cm) - Depth 2 -Total Square Cm 6.0 -Photo Taken Yes -Tunneling No -Undermining/Tunneling No -Circular Undermining No -Exudate Amt Large -Exudate Type Serosanguineous -Wound Margin Distinct, Outline Attached -Granulation Amt Large (67-100%) -Granulation Quality Colo,Red -Slough/Fibrin Yes -Necrosis Amt Small (1-33%) -Necrotic Tissue Type Adherent Slough -Structure Exposed N/A -Texture (Kassandra-wound Skin Appearance) Assessed, Scarring -Moisture (Kassandra-wound Skin Appearance) Assessed -Color (Kassandra-wound Skin Appearance) Assessed -Temperature (Kassandra-wound Skin No Abnormality Appearance) (Pt Warm) -Tenderness on Palpation (Kassandra-wound No Skin Appearance) -Ulcer Cleansing Wound Cleanser -Foul Odor after Cleansing No -Anesthetic Used 4% Lidocaine Solution *#16 Mid Pubic Area -Combined with other wound No No -Current Size (cm) - Length 5.4 4.2 4.8 -Current Size (cm) - Width 3.7 2.5 3 -Current Size (cm) - Depth 0.1 0.1 0.1 -Total Square Cm 19.98 10.50 14.4 -Date of Last Picture (Recall this 02/09/25 field) -Photo Taken Yes -Tunneling No No -Undermining/Tunneling No No -Circular Undermining No No -Exudate Amt Small Medium Large -Exudate Type Serosanguineous Serosanguineous Serosanguineous -Wound Margin Distinct, Distinct, Distinct, Outline Outline Outline Attached Attached Attached -Granulation Amt Large (67-100%) Medium (34-66%) Medium (34-66%) -Granulation Quality Red Colo Colo,Red -Slough/Fibrin Yes Yes -Necrosis Amt Medium (34-66%) Small (1-33%) -Necrotic Tissue Type Adherent Slough Adherent Slough -Structure Exposed N/A N/A -Texture (Kassandra-wound Skin Appearance) Assessed Assessed Assessed, Scarring -Moisture (Kassandra-wound Skin Appearance) Assessed Assessed Assessed -Color (Kassandra-wound Skin Appearance) Assessed Assessed Assessed -Temperature (Kassandra-wound Skin No Abnormality No Abnormality No Abnormality Appearance) (Pt Warm) (Pt Warm) (Pt Warm) -Tenderness on Palpation (Kassandra-wound No No No Skin Appearance) -Ulcer Cleansing Soap and Water Wound Cleanser Wound Cleanser -Foul Odor after Cleansing No No No -Anesthetic Used 4% Lidocaine 5% Lidocaine 4% Lidocaine Solution Gel Solution #15 L Groin -Combined with other wound No No -Current Size (cm) - Length 10.2 9 11.5 -Current Size (cm) - Width 5.8 5.2 8.5 -Current Size (cm) - Depth 1.6 1.5 1 -Total Square Cm 59.16 46.8 97.75 -Date of Last Picture (Recall this 02/09/25 field) -Photo Taken Yes -Tunneling No No -Undermining/Tunneling No No -Circular Undermining No No -Exudate Amt Large Large Large -Exudate Type Serosanguineous Serosanguineous Serosanguineous -Wound Margin Distinct, Distinct, Distinct, Outline Outline Outline Attached Attached Attached -Granulation Amt Large (67-100%) Large (67-100%) Medium (34-66%) -Granulation Quality Red Colo,Red Colo,Red -Slough/Fibrin Yes Yes -Necrosis Amt Small (1-33%) Small (1-33%) Small (1-33%) -Necrotic Tissue Type Eschar Adherent Slough Adherent Slough -Structure Exposed N/A N/A -Texture (Kassandra-wound Skin Appearance) Assessed Assessed Scarring -Moisture (Kassandra-wound Skin Appearance) Assessed Assessed Assessed -Color (Kassandra-wound Skin Appearance) Assessed Assessed Assessed -Temperature (Kassandra-wound Skin No Abnormality No Abnormality No Abnormality Appearance) (Pt Warm) (Pt Warm) (Pt Warm) -Tenderness on Palpation (Kassandra-wound No No No Skin Appearance) -Ulcer Cleansing Soap and Water Wound Cleanser Wound Cleanser -Foul Odor after Cleansing No No No -Anesthetic Used 4% Lidocaine 5% Lidocaine 4% Lidocaine Solution Gel Solution 03/03/25 11:42 Wound Center Nurse 1 17. R groin -Combined with other wound -Current Size (cm) - Length 7 -Current Size (cm) - Width 2.5 -Current Size (cm) - Depth 4 -Total Square Cm 17.5 -Photo Taken -Tunneling -Undermining/Tunneling -Circular Undermining -Exudate Amt Medium -Exudate Type Serosanguineous -Wound Margin Distinct, Outline Attached -Granulation Amt Medium (34-66%) -Granulation Quality Red -Slough/Fibrin Yes -Necrosis Amt Medium (34-66%) -Necrotic Tissue Type Adherent Slough -Structure Exposed -Texture (Kassandra-wound Skin Appearance) Assessed -Moisture (Kassandra-wound Skin Appearance) No Abnormality -Color (Kassandra-wound Skin Appearance) Assessed -Temperature (Kassandra-wound Skin No Abnormality Appearance) (Pt Warm) -Tenderness on Palpation (Kassandra-wound Yes Skin Appearance) -Ulcer Cleansing Soap and Water -Foul Odor after Cleansing No -Anesthetic Used 4% Lidocaine Solution *#16 Mid Pubic Area -Combined with other wound -Current Size (cm) - Length 3.5 -Current Size (cm) - Width 2 -Current Size (cm) - Depth 0.1 -Total Square Cm 7.0 -Date of Last Picture (Recall this field) -Photo Taken -Tunneling -Undermining/Tunneling -Circular Undermining -Exudate Amt Medium -Exudate Type Serosanguineous -Wound Margin Distinct, Outline Attached -Granulation Amt Medium (34-66%) -Granulation Quality Red -Slough/Fibrin Yes -Necrosis Amt Medium (34-66%) -Necrotic Tissue Type Adherent Slough -Structure Exposed -Texture (Kassandra-wound Skin Appearance) Assessed -Moisture (Kassandra-wound Skin Appearance) Assessed -Color (Kassandra-wound Skin Appearance) Assessed -Temperature (Kassandra-wound Skin No Abnormality Appearance) (Pt Warm) -Tenderness on Palpation (Kassandra-wound No Skin Appearance) -Ulcer Cleansing Soap and Water -Foul Odor after Cleansing No -Anesthetic Used 4% Lidocaine Solution #15 L Groin -Combined with other wound -Current Size (cm) - Length 10.5 -Current Size (cm) - Width 6 -Current Size (cm) - Depth 0.3 -Total Square Cm 63.0 -Date of Last Picture (Recall this field) -Photo Taken -Tunneling -Undermining/Tunneling -Circular Undermining -Exudate Amt Medium -Exudate Type Serosanguineous -Wound Margin -Granulation Amt Medium (34-66%) -Granulation Quality Red -Slough/Fibrin Yes -Necrosis Amt Medium (34-66%) -Necrotic Tissue Type Adherent Slough -Structure Exposed -Texture (Kassandra-wound Skin Appearance) Assessed -Moisture (Kassandra-wound Skin Appearance) Assessed -Color (Kassandra-wound Skin Appearance) Assessed -Temperature (Kassandra-wound Skin No Abnormality Appearance) (Pt Warm) -Tenderness on Palpation (Kassandra-wound Skin Appearance) -Ulcer Cleansing Soap and Water -Foul Odor after Cleansing No -Anesthetic Used 4% Lidocaine Solution WC - Nurse 2 - General Ulcer CM Notes Start: 02/09/25 13:32 Freq: Status: Active Protocol: Activity Type Activity Date Activity User E-sign Co-sign Detail Recorded Client Recorded Date Recorded By Document 02/09/25 14:15 [id number] 02/09/25 14:28 Document 02/17/25 10:04 [id number] 02/17/25 10:24 Document 02/24/25 10:42 [id number] 02/24/25 11:13 Document 03/03/25 12:13 [id number] 03/03/25 12:30 02/09/25 02/17/25 02/24/25 14:15 10:04 10:42 Wound Center Nurse 2 17. R groin -Time 10:42 -Correct Patient Yes -Correct Side, Site, Position Yes -Correct Procedure Yes -Procedure Performed Yes -Type of Procedure Debridement -Clinical Debridement Subcutaneous -Tissue Removed Subcutaneous -Post Debridement (cm) - Length 4.0 -Post Debridement (cm) - Width 1.0 -Post Debridement (cm) - Depth 1.8 -Total Square (Post) (cm) 4.00 -Area of Debridement (cm) - Length 4.0 -Area of Debridement (cm) - Width 1.0 -Total Square (Area) (cm) 4.00 -Tunneling No -Undermining/Tunneling No -Circular Undermining No -Wound/Ulcer Outcome Not Healed -Ulcer Cleansing Rinsed/ Irrigated with Saline -Foul Odor after Cleansing No -Bioengineered Tissue No -Bleeding Controlled with Pressure -Offloading No -Debridement - Subq, 1st 20sq cm No *#16 Mid Pubic Area -Time 14:15 10:04 10:42 -Correct Patient Yes Yes Yes -Correct Side, Site, Position Yes Yes Yes -Correct Procedure Yes Yes Yes -Procedure Performed Yes Yes Yes -Type of Procedure Debridement Debridement Debridement -Clinical Debridement Subcutaneous Subcutaneous Subcutaneous -Tissue Removed Subcutaneous Subcutaneous Subcutaneous -Post Debridement (cm) - Length 5.3 4.5 4.3 -Post Debridement (cm) - Width 3.5 2.5 3.0 -Post Debridement (cm) - Depth 0.4 0.1 0.1 -Total Square (Post) (cm) 18.55 11.25 12.90 -Area of Debridement (cm) - Length 5.3 4.5 4.3 -Area of Debridement (cm) - Width 3.5 2.5 3.0 -Total Square (Area) (cm) 18.55 11.25 12.90 -Tunneling No No -Undermining/Tunneling No No -Circular Undermining No No -Wound/Ulcer Outcome Not Healed Not Healed Not Healed -Ulcer Cleansing Rinsed/ Rinsed/ Rinsed/ Irrigated with Irrigated with Irrigated with Saline Saline Saline -Foul Odor after Cleansing No No No -Bioengineered Tissue No No No -Bleeding Controlled with Pressure Pressure Pressure -Treatment Response Procedure Procedure Procedure Tolerated Well Tolerated Well Tolerated Well -Offloading No No -Debridement - Open, 1st 20sq cm -Debridement - Subq, 1st 20sq cm Yes No No #15 L Groin -Time 14:15 10:04 10:43 -Correct Patient Yes Yes Yes -Correct Side, Site, Position Yes Yes Yes -Correct Procedure Yes Yes Yes -Procedure Performed Yes Yes Yes -Type of Procedure Debridement Debridement Debridement -Clinical Debridement Muscle / Fascia Subcutaneous Subcutaneous -Tissue Removed Muscle Subcutaneous Subcutaneous -Post Debridement (cm) - Length 11.0 12.0 11.5 -Post Debridement (cm) - Width 8.0 8.0 8.5 -Post Debridement (cm) - Depth 2.7 2.5 1.0 -Total Square (Post) (cm) 88.00 96.00 97.75 -Area of Debridement (cm) - Length 11.0 12.0 11.5 -Area of Debridement (cm) - Width 8.0 8.0 8.5 -Total Square (Area) (cm) 88.00 96.00 97.75 -Tunneling Yes No Yes -Tunneling Position (O'clock) 6 6 -Tunneling Distance (cm) 2.2 1.0 -Undermining/Tunneling No No No -Circular Undermining No No No -Wound/Ulcer Outcome Not Healed Not Healed Not Healed -Ulcer Cleansing Rinsed/ Rinsed/ Rinsed/ Irrigated with Irrigated with Irrigated with Saline Saline Saline -Foul Odor after Cleansing No No No -Bioengineered Tissue No No No -Bleeding Controlled with Pressure Pressure Pressure -Treatment Response Procedure Procedure Procedure Tolerated Well Tolerated Well Tolerated Well -Offloading No -Debridement - Subq, 1st 20sq cm Yes Yes -Debridement, SubQ, ea addt'l 20sq cm 5 5 or part thereof -Debridement - Muscle / Fascia, 1st Yes 20sq cm -Debridement, Muscle/Fascia, ea addt'l 4 20sq cm or part thereof Pain Scale: 0-10 Numeric Is Patient Pain Free? Yes Yes Yes 03/03/25 12:13 Wound Center Nurse 2 17. R groin -Time 12:15 -Correct Patient Yes -Correct Side, Site, Position Yes -Correct Procedure No -Procedure Performed No -Type of Procedure -Clinical Debridement -Tissue Removed -Post Debridement (cm) - Length 7.5 -Post Debridement (cm) - Width 5.0 -Post Debridement (cm) - Depth 3.5 -Total Square (Post) (cm) 37.50 -Area of Debridement (cm) - Length -Area of Debridement (cm) - Width -Total Square (Area) (cm) -Tunneling -Undermining/Tunneling -Circular Undermining -Wound/Ulcer Outcome Not Healed -Ulcer Cleansing Not Cleansed -Foul Odor after Cleansing No -Bioengineered Tissue No -Bleeding Controlled with NA -Offloading -Debridement - Subq, 1st 20sq cm *#16 Mid Pubic Area -Time 12:15 -Correct Patient Yes -Correct Side, Site, Position Yes -Correct Procedure Yes -Procedure Performed Yes -Type of Procedure Debridement -Clinical Debridement Epidermis / Dermis -Tissue Removed Epidermis -Post Debridement (cm) - Length 4.0 -Post Debridement (cm) - Width 2.2 -Post Debridement (cm) - Depth 0.1 -Total Square (Post) (cm) 8.80 -Area of Debridement (cm) - Length 4.0 -Area of Debridement (cm) - Width 2.2 -Total Square (Area) (cm) 8.80 -Tunneling No -Undermining/Tunneling No -Circular Undermining No -Wound/Ulcer Outcome Not Healed -Ulcer Cleansing Not Cleansed -Foul Odor after Cleansing No -Bioengineered Tissue No -Bleeding Controlled with Pressure -Treatment Response Procedure Tolerated Well -Offloading No -Debridement - Open, 1st 20sq cm Yes -Debridement - Subq, 1st 20sq cm #15 L Groin -Time 12:17 -Correct Patient Yes -Correct Side, Site, Position Yes -Correct Procedure No -Procedure Performed No -Type of Procedure -Clinical Debridement -Tissue Removed -Post Debridement (cm) - Length 10.0 -Post Debridement (cm) - Width 6.0 -Post Debridement (cm) - Depth 1.0 -Total Square (Post) (cm) 60.00 -Area of Debridement (cm) - Length -Area of Debridement (cm) - Width -Total Square (Area) (cm) -Tunneling -Tunneling Position (O'clock) -Tunneling Distance (cm) -Undermining/Tunneling -Circular Undermining No -Wound/Ulcer Outcome Not Healed -Ulcer Cleansing -Foul Odor after Cleansing No -Bioengineered Tissue No -Bleeding Controlled with NA -Treatment Response -Offloading No -Debridement - Subq, 1st 20sq cm -Debridement, SubQ, ea addt'l 20sq cm or part thereof -Debridement - Muscle / Fascia, 1st 20sq cm -Debridement, Muscle/Fascia, ea addt'l 20sq cm or part thereof Pain Scale: 0-10 Numeric Is Patient Pain Free? Yes WC - Nurse 3 - General Ulcer D/C NN Start: 02/09/25 13:32 Freq: Status: Active Protocol: Activity Type Activity Date Activity User E-sign Co-sign Detail Recorded Client Recorded Date Recorded By Document 02/09/25 14:38 [facility] [id number] 02/09/25 14:41 BMF Document 02/17/25 12:30 RB [id number] 02/17/25 12:31 RB Document 02/24/25 11:37 DS [id number] 02/24/25 11:53 DS Document 03/03/25 12:38 KW [id number] 03/03/25 12:40 KW 02/09/25 02/17/25 02/24/25 14:38 12:30 11:37 Wound Care Center Nurse 3 17. R groin -Primary Dressing Applied Hysept -Other Dressing abd -Primary Dressing Covered/Secured with Dry Gauze, Secured with Tape -Hysept 0 *#16 Mid Pubic Area -Ulcer Cleansing Soap and Water Rinsed/ Irrigated with Saline -Foul Odor after Cleansing No -Primary Dressing Applied Hysept Fibracol Plus Fibracol Plus 4x4 4x4 -Other Dressing dakins moist gauze -Primary Dressing Covered/Secured with Secured with Dry Gauze, Dry Gauze Tape Secured with Tape -Other Covering abd, drsg per dl multi operation forming machine setter -Fibracol Plus 4x4 1 1 -Hysept 1 #15 L Groin -Ulcer Cleansing Rinsed/ Rinsed/ Irrigated with Irrigated with Saline Saline -Foul Odor after Cleansing No -Primary Dressing Applied Hysept -Other Dressing dakins moist dakins abd gauze; abd; 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 Yes Yes No groin -Description Sharp -Intensity 5 -Duration (hours) Chronic -Pain Behavior Guarding, Grasping Site -Alleviating Factors/Interventions Turning/ Repositioning, Patient denies need for intervention WC - Visit Discharge Discharge Condition Stable Stable Stable Ambulatory Status Ambulatory Ambulatory Ambulatory,Cane Transportation Private Auto Private Auto Private Auto Medication Reconcilliation completed & No provided to patient/care provider Clinical Summary of Care Provided Yes 03/03/25 12:38 Wound Care Center Nurse 3 17. R groin -Primary Dressing Applied -Other Dressing dakins wet to dry -Primary Dressing Covered/Secured with Dry Gauze & Roll Gauze -Hysept *#16 Mid Pubic Area -Ulcer Cleansing -Foul Odor after Cleansing -Primary Dressing Applied Fibracol Plus 4x4 -Other Dressing -Primary Dressing Covered/Secured with Dry Gauze, Secured with Tape -Other Covering -Fibracol Plus 4x4 1 -Hysept #15 L Groin -Ulcer Cleansing -Foul Odor after Cleansing -Primary Dressing Applied -Other Dressing dakins wet to dry -Primary Dressing Covered/Secured with Dry Gauze & Roll Gauze, Secured with Tape -Hysept -Wound Comment(s) Treatment Response Pain Scale: 0-10 Numeric Is Patient Pain Free? Yes groin -Description -Intensity -Duration (hours) -Pain Behavior -Alleviating Factors/Interventions WC - Visit Discharge Discharge Condition Stable Ambulatory Status Wheelchair Transportation Private Auto Medication Reconcilliation completed & No provided to patient/care provider Clinical Summary of Care Provided Yes Additional Wound Wound debrided: left inguinal/gluteal/perineum wound Laterality: Left Anesthesia Used: 4% Lidocaine Solution, 5% Lidocaine Gel and Cetacaine Depth: Down to and including healthy tissue and in the subcutaneous layer Tissue Removed: Yellow slough, devitalized tissue Severity: Fat Layer Exposed Amount of bleeding with debridement: None Patient tolerated procedure: Patient tolerated procedure well Operative Diagnosis: No debridement performed today Additional Wound Wound debrided: Right groin/inguinal region Laterality: Right Type of Debridement: Excisional debridement Anesthesia Used: 4% Lidocaine Solution, 5% Lidocaine Gel and Cetacaine Depth: Down to and including healthy tissue and in the subcutaneous layer Tissue Removed: Yellow slough, devitalized tissue Severity: Fat Layer Exposed Amount of bleeding with debridement: None Patient tolerated procedure: Patient tolerated procedure well Operative Diagnosis: No debridement performed today. Assessment/Plan Assessment/Plan (1) Open wound of pubic region without complication: CODE(S): S31.000A - Unspecified open wound of lower back and pelvis without penetration into retroperitoneum, initial encounter QUALIFIERS: Encounter type: subsequent encounter Qualified Code(s): S31.000D - Unspecified open wound of lower back and pelvis without penetration into retroperitoneum, subsequent encounter (2) Open wound of inguinal region: CODE(S): S31.109A - Unspecified open wound of abdominal wall, unspecified quadrant without penetration into peritoneal cavity, initial encounter QUALIFIERS: Encounter type: subsequent encounter Qualified Code(s): S31.109D - Unspecified open wound of abdominal wall, unspecified quadrant without penetration into peritoneal cavity, subsequent encounter (3) Hypertension: CODE(S): I10 - Essential (primary) hypertension QUALIFIERS: Hypertension type: unspecified Qualified Code(s): I10 - Essential (primary) hypertension (4) Non-healing surgical wound: CODE(S): T81.89XA - Other complications of procedures, not elsewhere classified, initial encounter QUALIFIERS: Encounter type: subsequent encounter Qualified Code(s): T81.89XD - Other complications of procedures, not elsewhere classified, subsequent encounter (5) Hidradenitis suppurativa: CODE(S): L73.2 - Hidradenitis suppurativa (6) Skin ulcer of abdomen with fat layer exposed: CODE(S): L98.492 - Non-pressure chronic ulcer of skin of other sites with fat layer exposed (7) Skin ulcer of left groin with necrosis of muscle: CODE(S): L98.493 - Non-pressure chronic ulcer of skin of other sites with necrosis of muscle (8) Skin ulcer of right groin with fat layer exposed: CODE(S): L98.492 - Non-pressure chronic ulcer of skin of other sites with fat layer exposed PLAN: Plan Debridement performed today in clinic as annotated above. At home wound-care instructions: The patient will wash with antibacterial soap and water and then will apply Fibracol dressing to the suprapubic area and cover with gauze and continue Dakins wet to dry packing of left inguinal/perineum/groin daily as well as right inguinal/groin ulcer daily. Keep dressing clean and dry. Off-loading: The patient was instructed to avoid pressure and friction on the affected areas. Reposition every 2 hours at minimum. Avoid prolonged standing and/or dangling of legs. When seated, feet should be elevated at chest level. Frequent ambulation is encouraged. Diet: Patient encouraged to increase protein intake while taking caution to avoid high carbohydrate and/or sugar intake. Labs/cultures/imaging: none currently Follow-up: Return in 1 week for wound care follow up. Return sooner or report to the emergency room should symptoms worsen, or new symptoms arise. Note: [employer] speech recognition abrasive grader helper software was used to create portions of this document. Sound-alike and misspelled words, as well as other abrasive grader helper errors may be contained in the documentation.
== END 2025-03-08 23:59 | disposition home or self-care (01) ==
LOC: WC 11:15
PROVIDERS: PCP Nurse Practitioner Family; Referring Provider Nurse Practitioner Family; Visit Provider Family Medicine
DX: E11.622 Type 2 diabetes mellitus with other skin ulcer (principal); L98.492 Non-pressure chronic ulcer of skin of other sites with fat layer exposed; L73.2 Hidradenitis suppurativa; T81.89XA Other complications of procedures, not elsewhere classified, initial encounter; Z79.82 Long term (current) use of aspirin; I10 Essential (primary) hypertension; Z79.84 Long term (current) use of oral hypoglycemic drugs; S31.000A Unspecified open wound of lower back and pelvis without penetration into retroperitoneum, initial encounter; F17.210 Nicotine dependence, cigarettes, uncomplicated
CPT/HCPCS: 11042; 11043; 11045; 11046; 97597; 99213; G0463

== ENCOUNTER 2025-03-31 08:45 | Outpatient (RCR) | payer BC, SELFPAY ==
[2025-03-09 00:43] VITALS: BP 101/63; PULSE 74; RESP 14; TEMP 36.6
[2025-03-10 11:01] VITALS: BP 102/70; PULSE 73; RESP 18; TEMP 35.9
--- NOTE | 2025-03-10 13:57 | PCM.WC.PN ---
History of Present Illness Date of Service: 03/10/25 Chief Complaint: surgical wounds of suprapubic and left/right groin/perineum History of Wound: Mr. Theron Magaña is a 40 y/o male who presents to the wound center today for evaluation and management of his intertriginous wounds as referred by his plastic surgeon Dr. Valle of [facility]. Mr. Magaña has Hidradenitis Suppurative. Mid-January, he had surgery by Dr. Larson to address his HS lesions within his groin. Many of these were able to be closed with sutures, but 2 were left open. He has a relatively small, superficial open wound midline pelvic region and a larger, deeper wound in the inguinal/gluteal cleft. His is a nurse practitioner and cares for his wounds at home. Right now, they are applying wet-to-dry Dakins dressings to the open wounds; cleansing closed wounds with Hibiclens; changing daily. He is currently on Augmentin at the direction of his plastic surgeon. He saw his surgeon this week and Ciprofloxacin was prescribed to treat Pseudomonas infection. He has been dealing with these and similar wound/HS lesions for many years. In the past, he has had wound vacs and the changes were very painful for him. He has tried a few biologics without consistent success; was recently started on one called Bimzelx but too soon to tell if it is providing improvement. Subjective Subjective Theron returns today for follow up of bilateral inguinal surgical wounds. He is tolerating Dakins wet to dry dressings to inguinal areas and Fibracol to the suprapubic area. His pain is better. He is having moderate drainage. He denies fever, chills, odor. Objective Data Objective Data Vital Signs: Vital Signs Temp Pulse Resp BP 96.6 F L 73 18 102/70 03/10/25 11:01 03/10/25 11:01 03/10/25 11:01 03/10/25 11:01 Physical Exam Const alert, oriented x3 and no apparent distress General Appearance: cooperative and comfortable HEENT normocephalic and head/scalp atraumatic Resp normal respiratory effort Effort and Inspection: able to speak in complete sentences Cardio regular rate and regular rhythm Skin Wounds: wounds noted Wound Narrative: as in clinical panel Within the pelvic region there are several closed surgical wounds which are well-healing; in the mid-line there is a surgical wound which is open, superficial, with good granulation tissue at the base with minimal associated slough. There is no surrounding erythema, excess warmth, fluctuance, or induration. In the left inguinal area there is a large open surgical wound that has completely filled in and is flush with skin, without rolled edges right inguinal area there is a large surgical wound with irregular depth but without rolled edges, good granulation tissue and minimal slough Psych mental status grossly normal, thought process normal, cooperative and affect normal Debridement Note Debridement Note Wound debrided: suprapubic wound Laterality: Not Applicable Type of Debridement: Selective debridement Anesthesia Used: 4% Lidocaine Solution and 5% Lidocaine Gel Depth: Down to and including healthy tissue and in the subcutaneous layer Percentage of wound debrided: 100 Instrument Used: 5mm curette Tissue Removed: Yellow slough, devitalized tissue Severity: Fat Layer Exposed Amount of bleeding with debridement: Mild Bleeding Controlled with: Compression and gauze Patient tolerated procedure: Patient tolerated procedure well Post-Debridement Measurements and Additional Note: Post-Debridement Measurements/Treatment - Nurse 1 - General Ulcer Assessment Start: 03/10/25 11:01 Freq: Status: Active Protocol: LISA.TIGRET Activity Type Activity Date Activity User E-sign Co-sign Detail Recorded Client Recorded Date Recorded By Document 03/10/25 11:01 JAIRO [id number] 03/10/25 11:05 JAIRO 03/10/25 11:01 - Today's Visit Information Type of service Follow-up Visit (Physician/PLASTIC PRINTER ) Arrival Mode Ambulatory Transfer Assistance None Patient Identification Verified (Name & Yes ) Patient Requires Transmission-Based No Precautions Vital Signs Temperature (97.8 F-99.1 F) 96.6 F L Temperature Source Temporal Pulse Rate (60-100) 73 Pulse Location Monitor Respiratory Rate (12-18) 18 Respiratory rate source Observation Blood Pressure (90/60-120/80) 102/70 Blood Pressure Mean (mm Hg) 80 Source Monitor Position Semi-Fowlers Blood Pressure Location Left Arm History Since Last Visit- (Skip if this is Patient's initial visit) Have you changed medications since your No last visit? Any new allergies or adverse reactions No Had a fall/change in ADL's that may No increase risk of falls Signs or symptoms of abuse and/or No neglect since last visit Have you been in the hospital since your No last visit? Has dressing in place as prescribed Yes Has compression in place as prescribed N/A Has offloadiing in place as prescribed N/A Experienced any changes in pain level or No management Pain Scale: 0-10 Numeric Is Patient Pain Free? No groin -Description Aching -Intensity 5 -Duration (hours) Acute -Pain Behavior Withdrawal from Touch, Restlessness -Pain Aggravating Factors Exercise/ Activity, Debridement -Alleviating Factors/Interventions Medication -Effectiveness of Alleviating Factor/ Moderately Intervention effective WC - Nurse 1 - General Ulcer Measurement Start: 03/10/25 11:01 Freq: Status: Active Protocol: Activity Type Activity Date Activity User E-sign Co-sign Detail Recorded Client Recorded Date Recorded By Document 03/10/25 11:01 RB [id number] 03/10/25 11:05 RB 03/10/25 11:01 Wound Center Nurse 1 17. R groin -Combined with other wound No -Current Size (cm) - Length 7 -Current Size (cm) - Width 4.4 -Current Size (cm) - Depth 2.7 -Total Square Cm 30.8 -Photo Taken Yes -Tunneling No -Undermining/Tunneling No -Circular Undermining No -Exudate Amt Large -Exudate Type Serosanguineous -Wound Margin Distinct, Outline Attached -Granulation Amt Medium (34-66%) -Granulation Quality [place] -Slough/Fibrin Yes -Necrosis Amt Medium (34-66%) -Necrotic Tissue Type Adherent Slough -Structure Exposed N/A -Texture (Kassandra-wound Skin Appearance) Assessed, Scarring -Moisture (Kassandra-wound Skin Appearance) Assessed -Color (Kassandra-wound Skin Appearance) Assessed -Temperature (Kassandra-wound Skin No Abnormality Appearance) (Pt Warm) -Tenderness on Palpation (Kassandra-wound No Skin Appearance) -Ulcer Cleansing Wound Cleanser -Foul Odor after Cleansing No -Anesthetic Used 5% Lidocaine Gel *#16 Mid Pubic Area -Combined with other wound No -Current Size (cm) - Length 3.3 -Current Size (cm) - Width 1.7 -Current Size (cm) - Depth 0.1 -Total Square Cm 5.61 -Photo Taken Yes -Tunneling No -Undermining/Tunneling No -Circular Undermining No -Exudate Amt Large -Exudate Type Serosanguineous -Wound Margin Distinct, Outline Attached -Granulation Amt Medium (34-66%) -Granulation Quality [place] -Slough/Fibrin Yes -Necrosis Amt Medium (34-66%) -Necrotic Tissue Type Adherent Slough -Structure Exposed N/A -Texture (Kassandra-wound Skin Appearance) Assessed, Scarring -Moisture (Kassandra-wound Skin Appearance) Assessed -Color (Kassandra-wound Skin Appearance) Assessed -Temperature (Kassandra-wound Skin No Abnormality Appearance) (Pt Warm) -Tenderness on Palpation (Kassandra-wound No Skin Appearance) -Ulcer Cleansing Wound Cleanser -Foul Odor after Cleansing No -Anesthetic Used 5% Lidocaine Gel #15 L Groin -Combined with other wound No -Current Size (cm) - Length 10 -Current Size (cm) - Width 5.4 -Current Size (cm) - Depth 0.1 -Total Square Cm 54.0 -Photo Taken Yes -Tunneling No -Undermining/Tunneling No -Circular Undermining No -Exudate Amt Large -Exudate Type Serosanguineous -Wound Margin Distinct, Outline Attached -Granulation Amt Medium (34-66%) -Granulation Quality [place] -Slough/Fibrin Yes -Necrosis Amt Medium (34-66%) -Necrotic Tissue Type Adherent Slough -Structure Exposed N/A -Texture (Kassandra-wound Skin Appearance) Assessed, Scarring -Moisture (Kassandra-wound Skin Appearance) Assessed -Color (Kassandra-wound Skin Appearance) Assessed -Temperature (Kassandra-wound Skin No Abnormality Appearance) (Pt Warm) -Tenderness on Palpation (Kassandra-wound No Skin Appearance) -Ulcer Cleansing Wound Cleanser -Foul Odor after Cleansing No -Anesthetic Used 5% Lidocaine Gel WC - Nurse 2 - General Ulcer CM Notes Start: 03/10/25 11:01 Freq: Status: Active Protocol: Activity Type Activity Date Activity User E-sign Co-sign Detail Recorded Client Recorded Date Recorded By Document 03/10/25 11:11 [id number] 03/10/25 11:31 03/10/25 11:11 Wound Center Nurse 2 17. R groin -Time 11:11 -Correct Patient Yes -Correct Side, Site, Position Yes -Correct Procedure No -Procedure Performed No -Post Debridement (cm) - Length 7.2 -Post Debridement (cm) - Width 4.1 -Post Debridement (cm) - Depth 3.0 -Total Square (Post) (cm) 29.52 -Tunneling No -Undermining/Tunneling No -Circular Undermining No -Wound/Ulcer Outcome Not Healed -Ulcer Cleansing Not Cleansed -Foul Odor after Cleansing No -Bioengineered Tissue No -Bleeding Controlled with NA *#16 Mid Pubic Area -Time 11:11 -Correct Patient Yes -Correct Side, Site, Position Yes -Correct Procedure Yes -Procedure Performed Yes -Type of Procedure Debridement -Clinical Debridement Subcutaneous -Tissue Removed Subcutaneous -Post Debridement (cm) - Length 3.0 -Post Debridement (cm) - Width 1.7 -Post Debridement (cm) - Depth 0.1 -Total Square (Post) (cm) 5.10 -Area of Debridement (cm) - Length 3.0 -Area of Debridement (cm) - Width 1.7 -Total Square (Area) (cm) 5.10 -Tunneling No -Undermining/Tunneling No -Circular Undermining No -Wound/Ulcer Outcome Not Healed -Ulcer Cleansing Rinsed/ Irrigated with Saline -Foul Odor after Cleansing No -Bioengineered Tissue No -Bleeding Controlled with Pressure -Treatment Response Procedure Tolerated Well -Debridement - Subq, 1st 20sq cm Yes #15 L Groin -Time 11:11 -Correct Patient Yes -Correct Side, Site, Position Yes -Correct Procedure No -Procedure Performed No -Post Debridement (cm) - Length 10.0 -Post Debridement (cm) - Width 6.0 -Post Debridement (cm) - Depth 0.4 -Total Square (Post) (cm) 60.00 -Tunneling No -Undermining/Tunneling No -Circular Undermining No -Wound/Ulcer Outcome Not Healed -Ulcer Cleansing Not Cleansed -Foul Odor after Cleansing No -Bioengineered Tissue No -Bleeding Controlled with NA Pain Scale: 0-10 Numeric Is Patient Pain Free? Yes WC - Nurse 3 - General Ulcer D/C NN Start: 03/10/25 11:01 Freq: Status: Active Protocol: Activity Type Activity Date Activity User E-sign Co-sign Detail Recorded Client Recorded Date Recorded By Document 03/10/25 11:45 KW [id number] 03/10/25 11:54 KW 03/10/25 11:45 Wound Care Center Nurse 3 17. R groin -Other Dressing dakins gauze -Primary Dressing Covered/Secured with Dry Gauze *#16 Mid Pubic Area -Primary Dressing Applied Fibracol Plus 4x4 -Primary Dressing Covered/Secured with Dry Gauze -Fibracol Plus 4x4 1 #15 L Groin -Other Dressing fibracol -Primary Dressing Covered/Secured with Dry Gauze Treatment Response Procedure Tolerated Well Pain Scale: 0-10 Numeric Is Patient Pain Free? No groin -Description Aching -Intensity 5 -Duration (hours) Acute -Pain Behavior Irritability -Pain Aggravating Factors Exercise/ Activity -Alleviating Factors/Interventions Medication -Effectiveness of Alleviating Factor/ Moderately Intervention effective WC - Visit Discharge Discharge Condition Stable Ambulatory Status Ambulatory Transportation Private Auto Medication Reconcilliation completed & No provided to patient/care provider Clinical Summary of Care Provided Yes Additional Wound Wound debrided: left inguinal/gluteal/perineum wound Laterality: Left Anesthesia Used: 4% Lidocaine Solution, 5% Lidocaine Gel and Cetacaine Depth: Down to and including healthy tissue and in the subcutaneous layer Tissue Removed: Yellow slough, devitalized tissue Severity: Fat Layer Exposed Amount of bleeding with debridement: None Patient tolerated procedure: Patient tolerated procedure well Operative Diagnosis: No debridement performed today Additional Wound Wound debrided: Right groin/inguinal region Laterality: Right Type of Debridement: Excisional debridement Anesthesia Used: 4% Lidocaine Solution, 5% Lidocaine Gel and Cetacaine Depth: Down to and including healthy tissue and in the subcutaneous layer Tissue Removed: Yellow slough, devitalized tissue Severity: Fat Layer Exposed Amount of bleeding with debridement: None Patient tolerated procedure: Patient tolerated procedure well Operative Diagnosis: No debridement performed today. Assessment/Plan Assessment/Plan (1) Open wound of pubic region without complication: CODE(S): S31.000A - Unspecified open wound of lower back and pelvis without penetration into retroperitoneum, initial encounter QUALIFIERS: Encounter type: subsequent encounter Qualified Code(s): S31.000D - Unspecified open wound of lower back and pelvis without penetration into retroperitoneum, subsequent encounter (2) Open wound of inguinal region: CODE(S): S31.109A - Unspecified open wound of abdominal wall, unspecified quadrant without penetration into peritoneal cavity, initial encounter QUALIFIERS: Encounter type: subsequent encounter Qualified Code(s): S31.109D - Unspecified open wound of abdominal wall, unspecified quadrant without penetration into peritoneal cavity, subsequent encounter (3) Hypertension: CODE(S): I10 - Essential (primary) hypertension QUALIFIERS: Hypertension type: unspecified Qualified Code(s): I10 - Essential (primary) hypertension (4) Non-healing surgical wound: CODE(S): T81.89XA - Other complications of procedures, not elsewhere classified, initial encounter QUALIFIERS: Encounter type: subsequent encounter Qualified Code(s): T81.89XD - Other complications of procedures, not elsewhere classified, subsequent encounter (5) Hidradenitis suppurativa: CODE(S): L73.2 - Hidradenitis suppurativa (6) Skin ulcer of abdomen with fat layer exposed: CODE(S): L98.492 - Non-pressure chronic ulcer of skin of other sites with fat layer exposed (7) Skin ulcer of left groin with necrosis of muscle: CODE(S): L98.493 - Non-pressure chronic ulcer of skin of other sites with necrosis of muscle (8) Skin ulcer of right groin with fat layer exposed: CODE(S): L98.492 - Non-pressure chronic ulcer of skin of other sites with fat layer exposed PLAN: Plan Debridement performed today in clinic as annotated above. At home wound-care instructions: The patient will wash with antibacterial soap and water and then will apply Fibracol dressing to the suprapubic area and left groin and cover with gauze and continue Dakins wet to dry packing of right inguinal/groin ulcer daily. Keep dressing clean and dry. Off-loading: The patient was instructed to avoid pressure and friction on the affected areas. Reposition every 2 hours at minimum. Avoid prolonged standing and/or dangling of legs. When seated, feet should be elevated at chest level. Frequent ambulation is encouraged. Diet: Patient encouraged to increase protein intake while taking caution to avoid high carbohydrate and/or sugar intake. Labs/cultures/imaging: none currently Follow-up: Return in 1 week for wound care follow up. Return sooner or report to the emergency room should symptoms worsen, or new symptoms arise. Note: [employer] speech recognition marketing services vice president software was used to create portions of this document. Sound-alike and misspelled words, as well as other marketing services vice president errors may be contained in the documentation.
--- NOTE | 2025-03-13 14:42 | WC ---
PHOTO 03/10/25 MID PUBIC AREA
--- NOTE | 2025-03-13 14:43 | WC ---
PHOTO 03/10/25 LEFT GROIN
--- NOTE | 2025-03-13 14:43 | WC ---
PHOTO 03/10/25 RIGHT GROIN
[2025-03-17 12:02] VITALS: BP 110/72; PULSE 70; RESP 18; TEMP 35.9
--- NOTE | 2025-03-17 15:35 | PCM.WC.PN ---
History of Present Illness Date of Service: 03/17/25 Chief Complaint: surgical wounds of suprapubic and left/right groin/perineum History of Wound: Mr. Theron Magaña is a 40 y/o male who presents to the wound center today for evaluation and management of his intertriginous wounds as referred by his plastic surgeon Dr. Valle of [facility] Mr. Magaña has Hidradenitis Suppurative. Mid-January, he had surgery by Dr. Larson to address his HS lesions within his groin. Many of these were able to be closed with sutures, but 2 were left open. He has a relatively small, superficial open wound midline pelvic region and a larger, deeper wound in the inguinal/gluteal cleft. His is a nurse practitioner and cares for his wounds at home. Right now, they are applying wet-to-dry Dakins dressings to the open wounds; cleansing closed wounds with Hibiclens; changing daily. He is currently on Augmentin at the direction of his plastic surgeon. He saw his surgeon this week and Ciprofloxacin was prescribed to treat Pseudomonas infection. He has been dealing with these and similar wound/HS lesions for many years. In the past, he has had wound vacs and the changes were very painful for him. He has tried a few biologics without consistent success; was recently started on one called Bimzelx but too soon to tell if it is providing improvement. Subjective Subjective Theron returns today for follow up of bilateral inguinal surgical wounds. He is tolerating Dakins wet to dry dressings to inguinal areas and Fibracol to the suprapubic area. His pain is better. He is having moderate drainage. He denies fever, chills, odor. Objective Data Objective Data Vital Signs: Vital Signs Temp Pulse Resp BP 96.7 F L 70 18 110/72 03/17/25 12:02 03/17/25 12:02 03/17/25 12:02 03/17/25 12:02 Physical Exam Const alert, oriented x3 and no apparent distress General Appearance: cooperative and comfortable HEENT normocephalic and head/scalp atraumatic Resp normal respiratory effort Effort and Inspection: able to speak in complete sentences Cardio regular rate and regular rhythm Skin Wounds: wounds noted Wound Narrative: as in clinical panel Within the pelvic region there are several closed surgical wounds which are well-healing; in the mid-line there is a surgical wound which is open, superficial, with good granulation tissue at the base with minimal associated slough. There is no surrounding erythema, excess warmth, fluctuance, or induration. In the left inguinal area there is a large open surgical wound that has completely filled in and is flush with skin, without rolled edges right inguinal area there is a large surgical wound with irregular depth but without rolled edges, good granulation tissue and minimal slough Psych mental status grossly normal, thought process normal, cooperative and affect normal Debridement Note Debridement Note Wound debrided: suprapubic wound Laterality: Not Applicable Type of Debridement: Selective debridement Anesthesia Used: 4% Lidocaine Solution and 5% Lidocaine Gel Depth: Down to and including healthy tissue and in the subcutaneous layer Percentage of wound debrided: 100 Instrument Used: 5mm curette Tissue Removed: Yellow slough, devitalized tissue Severity: Fat Layer Exposed Amount of bleeding with debridement: Mild Bleeding Controlled with: Compression and gauze Patient tolerated procedure: Patient tolerated procedure well Post-Debridement Measurements and Additional Note: Post-Debridement Measurements/Treatment - Nurse 1 - General Ulcer Assessment Start: 03/10/25 11:01 Freq: Status: Active Protocol: .TIGRET Activity Type Activity Date Activity User E-sign Co-sign Detail Recorded Client Recorded Date Recorded By Document 03/10/25 11:01 RB [id number] 03/10/25 11:05 RB Document 03/17/25 12:02 RB [id number] 03/17/25 12:07 RB 03/10/25 03/17/25 11:01 12:02 - Today's Visit Information Type of service Follow-up Visit Follow-up Visit (Physician/[employer] STEWARD/STEWARDESS (Physician/[employer]ILRO[employer]ING [employer] STEWARD/STEWARDESS ) ) Arrival Mode Ambulatory Ambulatory Transfer Assistance None None Patient Identification Verified (Name & Yes Yes ) Patient Requires Transmission-Based No No Precautions Vital Signs Temperature (97.8 F-99.1 F) 96.6 F L 96.7 F L Temperature Source Temporal Temporal Pulse Rate (60-100) 73 70 Pulse Location Monitor Monitor Respiratory Rate (12-18) 18 18 Respiratory rate source Observation Observation Blood Pressure (90/60-120/80) 102/70 110/72 Blood Pressure Mean (mm Hg) 80 84 Source Monitor Monitor Position Semi-Fowlers Semi-Fowlers Blood Pressure Location Left Arm Left Arm History Since Last Visit- (Skip if this is Patient's initial visit) Have you changed medications since your No No last visit? Any new allergies or adverse reactions No No Had a fall/change in ADL's that may No No increase risk of falls Signs or symptoms of abuse and/or No No neglect since last visit Have you been in the hospital since your No No last visit? Has dressing in place as prescribed Yes Yes Has compression in place as prescribed N/A N/A Has offloadiing in place as prescribed N/A N/A Experienced any changes in pain level or No No management Left Footwear Regular Shoe Right Footwear Regular Shoe Pain Scale: 0-10 Numeric Is Patient Pain Free? No Yes groin -Description Aching Throbbing, Aching -Intensity 5 6 -Duration (hours) Acute Acute -Pain Behavior Withdrawal from Withdrawal from Touch, Touch Restlessness -Pain Aggravating Factors Exercise/ Exercise/ Activity, Activity Debridement -Alleviating Factors/Interventions Medication Medication -Effectiveness of Alleviating Factor/ Moderately Minimally Intervention effective effective WC - Nurse 1 - General Ulcer Measurement Start: 03/10/25 11:01 Freq: Status: Active Protocol: Activity Type Activity Date Activity User E-sign Co-sign Detail Recorded Client Recorded Date Recorded By Document 03/10/25 11:01 RB [id number] 03/10/25 11:05 RB Document 03/17/25 12:02 RB [id number] 03/17/25 12:07 RB 03/10/25 03/17/25 11:01 12:02 Wound Center Nurse 1 #17 R groin -Combined with other wound No No -Current Size (cm) - Length 7 6.8 -Current Size (cm) - Width 4.4 1.7 -Current Size (cm) - Depth 2.7 2 -Total Square Cm 30.8 11.56 -Photo Taken Yes -Tunneling No No -Undermining/Tunneling No No -Circular Undermining No No -Exudate Amt Large Large -Exudate Type Serosanguineous Serosanguineous -Wound Margin Distinct, Distinct, Outline Outline Attached Attached -Granulation Amt Medium (34-66%) Large (67-100%) -Granulation Quality [place],Red -Slough/Fibrin Yes Yes -Necrosis Amt Medium (34-66%) Small (1-33%) -Necrotic Tissue Type Adherent Slough Adherent Slough -Structure Exposed N/A N/A -Texture (Kassandra-wound Skin Appearance) Assessed, Assessed, Scarring Scarring -Moisture (Kassandra-wound Skin Appearance) Assessed Assessed -Color (Kassandra-wound Skin Appearance) Assessed No Abnormality -Temperature (Kassandra-wound Skin No Abnormality No Abnormality Appearance) (Pt Warm) (Pt Warm) -Tenderness on Palpation (Kassandra-wound No No Skin Appearance) -Ulcer Cleansing Wound Cleanser Wound Cleanser -Foul Odor after Cleansing No No -Anesthetic Used 5% Lidocaine 4% Lidocaine Gel Solution #16 Mid Pubic Area -Combined with other wound No No -Current Size (cm) - Length 3.3 2 -Current Size (cm) - Width 1.7 1 -Current Size (cm) - Depth 0.1 0.1 -Total Square Cm 5.61 2 -Photo Taken Yes -Tunneling No No -Undermining/Tunneling No No -Circular Undermining No No -Exudate Amt Large Medium -Exudate Type Serosanguineous Serosanguineous -Wound Margin Distinct, Distinct, Outline Outline Attached Attached -Granulation Amt Medium (34-66%) Medium (34-66%) -Granulation Quality [place] -Slough/Fibrin Yes Yes -Necrosis Amt Medium (34-66%) Small (1-33%) -Necrotic Tissue Type Adherent Slough Adherent Slough -Structure Exposed N/A N/A -Texture (Kassandra-wound Skin Appearance) Assessed, Assessed, Scarring Scarring -Moisture (Kassandra-wound Skin Appearance) Assessed Assessed -Color (Kassandra-wound Skin Appearance) Assessed Assessed -Temperature (Kassandra-wound Skin No Abnormality No Abnormality Appearance) (Pt Warm) (Pt Warm) -Tenderness on Palpation (Kassandra-wound No No Skin Appearance) -Ulcer Cleansing Wound Cleanser Wound Cleanser -Foul Odor after Cleansing No No -Anesthetic Used 5% Lidocaine 4% Lidocaine Gel Solution #15 L Groin -Combined with other wound No No -Current Size (cm) - Length 10 10 -Current Size (cm) - Width 5.4 5 -Current Size (cm) - Depth 0.1 0.1 -Total Square Cm 54.0 50 -Photo Taken Yes -Tunneling No No -Undermining/Tunneling No No -Circular Undermining No No -Exudate Amt Large Medium -Exudate Type Serosanguineous Serosanguineous -Wound Margin Distinct, Distinct, Outline Outline Attached Attached -Granulation Amt Medium (34-66%) Medium (34-66%) -Granulation Quality [place] -Slough/Fibrin Yes Yes -Necrosis Amt Medium (34-66%) Small (1-33%) -Necrotic Tissue Type Adherent Slough Adherent Slough -Structure Exposed N/A N/A -Texture (Kassandra-wound Skin Appearance) Assessed, Assessed, Scarring Scarring -Moisture (Kassandra-wound Skin Appearance) Assessed Assessed -Color (Kassandra-wound Skin Appearance) Assessed Assessed -Temperature (Kassandra-wound Skin No Abnormality No Abnormality Appearance) (Pt Warm) (Pt Warm) -Tenderness on Palpation (Kassandra-wound No No Skin Appearance) -Ulcer Cleansing Wound Cleanser -Foul Odor after Cleansing No Yes -Anesthetic Used 5% Lidocaine 4% Lidocaine Gel Solution WC - Nurse 2 - General Ulcer CM Notes Start: 03/10/25 11:01 Freq: Status: Active Protocol: Activity Type Activity Date Activity User E-sign Co-sign Detail Recorded Client Recorded Date Recorded By Document 03/10/25 11:11 [id number] 03/10/25 11:31 Document 03/17/25 12:16 [id number] 03/17/25 12:35 03/10/25 03/17/25 11:11 12:16 Wound Center Nurse 2 #17 R groin -Time 11:11 12:17 -Correct Patient Yes Yes -Correct Side, Site, Position Yes Yes -Correct Procedure No Yes -Procedure Performed No Yes -Type of Procedure Debridement -Clinical Debridement Subcutaneous -Tissue Removed Subcutaneous -Post Debridement (cm) - Length 7.2 6.5 -Post Debridement (cm) - Width 4.1 4.2 -Post Debridement (cm) - Depth 3.0 2.0 -Total Square (Post) (cm) 29.52 27.30 -Area of Debridement (cm) - Length 6.5 -Area of Debridement (cm) - Width 4.2 -Total Square (Area) (cm) 27.30 -Tunneling No No -Undermining/Tunneling No No -Circular Undermining No No -Wound/Ulcer Outcome Not Healed Not Healed -Ulcer Cleansing Not Cleansed Rinsed/ Irrigated with Saline -Foul Odor after Cleansing No No -Bioengineered Tissue No No -Bleeding Controlled with NA Pressure -Treatment Response Procedure Tolerated Well -Debridement - Subq, 1st 20sq cm No #16 Mid Pubic Area -Time 11:11 12:17 -Correct Patient Yes Yes -Correct Side, Site, Position Yes Yes -Correct Procedure Yes Yes -Procedure Performed Yes Yes -Type of Procedure Debridement Debridement -Clinical Debridement Subcutaneous Epidermis / Dermis -Tissue Removed Subcutaneous Epidermis -Post Debridement (cm) - Length 3.0 2.0 -Post Debridement (cm) - Width 1.7 1.0 -Post Debridement (cm) - Depth 0.1 0.1 -Total Square (Post) (cm) 5.10 2.00 -Area of Debridement (cm) - Length 3.0 2.0 -Area of Debridement (cm) - Width 1.7 1.0 -Total Square (Area) (cm) 5.10 2.00 -Tunneling No No -Undermining/Tunneling No No -Circular Undermining No No -Wound/Ulcer Outcome Not Healed Not Healed -Ulcer Cleansing Rinsed/ Rinsed/ Irrigated with Irrigated with Saline Saline -Foul Odor after Cleansing No No -Bioengineered Tissue No No -Bleeding Controlled with Pressure Pressure -Treatment Response Procedure Procedure Tolerated Well Tolerated Well -Debridement - Open, 1st 20sq cm Yes -Debridement - Subq, 1st 20sq cm Yes #15 L Groin -Time 11:11 12:17 -Correct Patient Yes Yes -Correct Side, Site, Position Yes Yes -Correct Procedure No Yes -Procedure Performed No Yes -Type of Procedure Debridement -Clinical Debridement Subcutaneous -Tissue Removed Subcutaneous -Post Debridement (cm) - Length 10.0 8.0 -Post Debridement (cm) - Width 6.0 5.0 -Post Debridement (cm) - Depth 0.4 0.1 -Total Square (Post) (cm) 60.00 40.00 -Area of Debridement (cm) - Length 8.0 -Area of Debridement (cm) - Width 5.0 -Total Square (Area) (cm) 40.00 -Tunneling No No -Undermining/Tunneling No No -Circular Undermining No No -Wound/Ulcer Outcome Not Healed Not Healed -Ulcer Cleansing Not Cleansed Rinsed/ Irrigated with Saline -Foul Odor after Cleansing No No -Bioengineered Tissue No No -Bleeding Controlled with NA Pressure -Treatment Response Procedure Tolerated Well -Offloading No -Debridement - Subq, 1st 20sq cm Yes -Debridement, SubQ, ea addt'l 20sq cm 3 or part thereof Pain Scale: 0-10 Numeric Is Patient Pain Free? Yes Yes - Nurse 3 - General Ulcer D/C NN Start: 03/10/25 11:01 Freq: Status: Active Protocol: Activity Type Activity Date Activity User E-sign Co-sign Detail Recorded Client Recorded Date Recorded By Document 03/10/25 11:45 KW [id number] 03/10/25 11:54 KW Document 03/17/25 12:45 KW [id number] 03/17/25 12:45 KW 03/10/25 03/17/25 11:45 12:45 Wound Care Center Nurse 3 #17 R groin -Primary Dressing Applied Hysept -Other Dressing dakins gauze -Primary Dressing Covered/Secured with Dry Gauze Dry Gauze -Hysept 1 #16 Mid Pubic Area -Primary Dressing Applied Fibracol Plus 4x4 -Primary Dressing Covered/Secured with Dry Gauze Dry Gauze -Fibracol Plus 4x4 1 #15 L Groin -Other Dressing fibracol -Primary Dressing Covered/Secured with Dry Gauze Dry Gauze,Dry Gauze & Roll Gauze,Secured with Tape Treatment Response Procedure Tolerated Well Pain Scale: 0-10 Numeric Is Patient Pain Free? No Yes groin -Description Aching -Intensity 5 -Duration (hours) Acute -Pain Behavior Irritability -Pain Aggravating Factors Exercise/ Activity -Alleviating Factors/Interventions Medication -Effectiveness of Alleviating Factor/ Moderately Intervention effective WC - Visit Discharge Discharge Condition Stable Stable Ambulatory Status Ambulatory Ambulatory,Cane Transportation Private Auto Private Auto Medication Reconcilliation completed & No No provided to patient/care provider Clinical Summary of Care Provided Yes Yes Additional Wound Wound debrided: left inguinal/gluteal/perineum wound Laterality: Left Anesthesia Used: 4% Lidocaine Solution, 5% Lidocaine Gel and Cetacaine Depth: Down to and including healthy tissue and in the subcutaneous layer Tissue Removed: Yellow slough, devitalized tissue Severity: Fat Layer Exposed Amount of bleeding with debridement: None Patient tolerated procedure: Patient tolerated procedure well Operative Diagnosis: No debridement performed today Additional Wound Wound debrided: Right groin/inguinal region Laterality: Right Type of Debridement: Excisional debridement Anesthesia Used: 4% Lidocaine Solution, 5% Lidocaine Gel and Cetacaine Depth: Down to and including healthy tissue and in the subcutaneous layer Tissue Removed: Yellow slough, devitalized tissue Severity: Fat Layer Exposed Amount of bleeding with debridement: None Patient tolerated procedure: Patient tolerated procedure well Operative Diagnosis: No debridement performed today. Assessment/Plan Assessment/Plan (1) Open wound of pubic region without complication: CODE(S): S31.000A - Unspecified open wound of lower back and pelvis without penetration into retroperitoneum, initial encounter QUALIFIERS: Encounter type: subsequent encounter Qualified Code(s): S31.000D - Unspecified open wound of lower back and pelvis without penetration into retroperitoneum, subsequent encounter (2) Open wound of inguinal region: CODE(S): S31.109A - Unspecified open wound of abdominal wall, unspecified quadrant without penetration into peritoneal cavity, initial encounter QUALIFIERS: Encounter type: subsequent encounter Qualified Code(s): S31.109D - Unspecified open wound of abdominal wall, unspecified quadrant without penetration into peritoneal cavity, subsequent encounter (3) Hypertension: CODE(S): I10 - Essential (primary) hypertension QUALIFIERS: Hypertension type: unspecified Qualified Code(s): I10 - Essential (primary) hypertension (4) Non-healing surgical wound: CODE(S): T81.89XA - Other complications of procedures, not elsewhere classified, initial encounter QUALIFIERS: Encounter type: subsequent encounter Qualified Code(s): T81.89XD - Other complications of procedures, not elsewhere classified, subsequent encounter (5) Hidradenitis suppurativa: CODE(S): L73.2 - Hidradenitis suppurativa (6) Skin ulcer of abdomen with fat layer exposed: CODE(S): L98.492 - Non-pressure chronic ulcer of skin of other sites with fat layer exposed (7) Skin ulcer of left groin with necrosis of muscle: CODE(S): L98.493 - Non-pressure chronic ulcer of skin of other sites with necrosis of muscle (8) Skin ulcer of right groin with fat layer exposed: CODE(S): L98.492 - Non-pressure chronic ulcer of skin of other sites with fat layer exposed PLAN: Plan Debridement performed today in clinic as annotated above. At home wound-care instructions: The patient will wash with antibacterial soap and water and then will apply Fibracol dressing to the suprapubic area and left groin and cover with gauze and continue Dakins wet to dry packing of right inguinal/groin ulcer daily. Keep dressing clean and dry. Off-loading: The patient was instructed to avoid pressure and friction on the affected areas. Reposition every 2 hours at minimum. Avoid prolonged standing and/or dangling of legs. When seated, feet should be elevated at chest level. Frequent ambulation is encouraged. Diet: Patient encouraged to increase protein intake while taking caution to avoid high carbohydrate and/or sugar intake. Labs/cultures/imaging: none currently Follow-up: Return in 1 week for wound care follow up. Return sooner or report to the emergency room should symptoms worsen, or new symptoms arise. Note: [employer] speech recognition university administrator software was used to create portions of this document. Sound-alike and misspelled words, as well as other university administrator errors may be contained in the documentation.
[2025-03-24 10:47] VITALS: BP 111/71; PULSE 74; RESP 18
--- NOTE | 2025-03-24 12:48 | PCM.WC.PN ---
History of Present Illness Date of Service: 03/24/25 Chief Complaint: surgical wounds of suprapubic and left/right groin/perineum History of Wound: Mr. Theron Magaña is a 40 y/o male who presents to the wound center today for evaluation and management of his intertriginous wounds as referred by his plastic surgeon Dr. Valle of [facility]. Mr. Magaña has Hidradenitis Suppurative. Mid-January, he had surgery by Dr. Larson to address his HS lesions within his groin. Many of these were able to be closed with sutures, but 2 were left open. He has a relatively small, superficial open wound midline pelvic region and a larger, deeper wound in the inguinal/gluteal cleft. His is a nurse practitioner and cares for his wounds at home. Right now, they are applying wet-to-dry Dakins dressings to the open wounds; cleansing closed wounds with Hibiclens; changing daily. He is currently on Augmentin at the direction of his plastic surgeon. He saw his surgeon this week and Ciprofloxacin was prescribed to treat Pseudomonas infection. He has been dealing with these and similar wound/HS lesions for many years. In the past, he has had wound vacs and the changes were very painful for him. He has tried a few biologics without consistent success; was recently started on one called Bimzelx but too soon to tell if it is providing improvement. Subjective Subjective Theron returns today for follow up of bilateral inguinal surgical wounds. He is tolerating Dakins wet to dry dressings to inguinal areas and Fibracol to the suprapubic area. His pain is better. He is having moderate drainage. He denies fever, chills, odor. Objective Data Objective Data Vital Signs: Vital Signs Temp Pulse Resp BP O2 Del Method 96.7 F L 74 18 111/71 Room Air 03/17/25 12:02 03/24/25 10:47 03/24/25 10:47 03/24/25 10:47 03/24/25 10:47 Oxygen Delivery Method Room Air Physical Exam Const alert, oriented x3 and no apparent distress General Appearance: cooperative and comfortable HEENT normocephalic and head/scalp atraumatic Resp normal respiratory effort Effort and Inspection: able to speak in complete sentences Cardio regular rate and regular rhythm Skin Wounds: wounds noted Wound Narrative: as in clinical panel suprabubic skin ulcer is epithelialized In the left inguinal area there is a large open surgical wound that has completely filled in and is flush with skin, without rolled edges and decreased in size right inguinal area there is a large surgical wound with irregular depth but without rolled edges, good granulation tissue and minimal slough and decreased in size and depth, minimal undermining at 6 o clock and 9 o clock Psych mental status grossly normal, thought process normal, cooperative and affect normal Debridement Note Debridement Note Wound debrided: suprabupic wound Laterality: Not Applicable No debridement was completed: No debridement was completed today (this is healed and epithelialized) Post-Debridement Measurements and Additional Note: Post-Debridement Measurements/Treatment - Nurse 1 - General Ulcer Assessment Start: 03/10/25 11:01 Freq: Status: Active Protocol: DESMOND Activity Type Activity Date Activity User E-sign Co-sign Detail Recorded Client Recorded Date Recorded By Document 03/10/25 11:01 RB [id number] 03/10/25 11:05 RB Document 03/17/25 12:02 RB [id number] 03/17/25 12:07 RB Document 03/24/25 10:47 KW [id number] 03/24/25 11:00 KW 03/10/25 03/17/25 03/24/25 11:01 12:02 10:47 - Today's Visit Information Type of service Follow-up Visit Follow-up Visit Follow-up Visit (Physician/INCOME TAX INVESTIGATOR (Physician/INCOME TAX INVESTIGATOR (Physician/INCOME TAX INVESTIGATOR ) ) ) Arrival Mode Ambulatory Ambulatory Ambulatory,Cane Transfer Assistance None None Accompanied by Patient Identification Verified (Name & Yes Yes Yes ) Patient Requires Transmission-Based No No Precautions Vital Signs Temperature (97.8 F-99.1 F) 96.6 F L 96.7 F L Temperature Source Temporal Temporal Temporal Pulse Rate (60-100) 73 70 74 Pulse Location Monitor Monitor Monitor Respiratory Rate (12-18) 18 18 18 Respiratory rate source Observation Observation Observation Oxygen Delivery Method Room Air Blood Pressure (90/60-120/80) 102/70 110/72 111/71 Blood Pressure Mean (mm Hg) 80 84 84 Source Monitor Monitor Monitor Position Semi-Fowlers Semi-Fowlers Sitting Blood Pressure Location Left Arm Left Arm Left Arm History Since Last Visit- (Skip if this is Patient's initial visit) Have you changed medications since your No No No last visit? Any new allergies or adverse reactions No No No Had a fall/change in ADL's that may No No No increase risk of falls Signs or symptoms of abuse and/or No No No neglect since last visit Have you been in the hospital since your No No No last visit? Has dressing in place as prescribed Yes Yes Yes Has compression in place as prescribed N/A N/A N/A Has offloadiing in place as prescribed N/A N/A N/A Experienced any changes in pain level or No No No management Left Footwear Regular Shoe Regular Shoe Right Footwear Regular Shoe Regular Shoe Pain Scale: 0-10 Numeric Is Patient Pain Free? No Yes Yes groin -Description Aching Throbbing, Aching -Intensity 5 6 -Duration (hours) Acute Acute -Pain Behavior Withdrawal from Withdrawal from Touch, Touch Restlessness -Pain Aggravating Factors Exercise/ Exercise/ Activity, Activity Debridement -Alleviating Factors/Interventions Medication Medication -Effectiveness of Alleviating Factor/ Moderately Minimally Intervention effective effective WC - Nurse 1 - General Ulcer Measurement Start: 03/10/25 11:01 Freq: Status: Active Protocol: Activity Type Activity Date Activity User E-sign Co-sign Detail Recorded Client Recorded Date Recorded By Document 03/10/25 11:01 RB [id number] 03/10/25 11:05 RB Document 03/17/25 12:02 RB [id number] 03/17/25 12:07 RB Document 03/24/25 10:47 KW [id number] 03/24/25 11:00 KW 03/10/25 03/17/25 03/24/25 11:01 12:02 10:47 Wound Center Nurse 1 #17 R groin -Combined with other wound No No -Current Size (cm) - Length 7 6.8 6 -Current Size (cm) - Width 4.4 1.7 2.2 -Current Size (cm) - Depth 2.7 2 1.3 -Total Square Cm 30.8 11.56 13.2 -Photo Taken Yes -Tunneling No No -Undermining/Tunneling No No -Circular Undermining No No -Exudate Amt Large Large Medium -Exudate Type Serosanguineous Serosanguineous Serosanguineous -Wound Margin Distinct, Distinct, Distinct, Outline Outline Outline Attached Attached Attached -Granulation Amt Medium (34-66%) Large (67-100%) Large (67-100%) -Granulation Quality [place],Red Red -Slough/Fibrin Yes Yes -Necrosis Amt Medium (34-66%) Small (1-33%) -Necrotic Tissue Type Adherent Slough Adherent Slough -Structure Exposed N/A N/A -Texture (Kassandra-wound Skin Appearance) Assessed, Assessed, Assessed Scarring Scarring -Moisture (Kassandra-wound Skin Appearance) Assessed Assessed Assessed -Color (Kassandra-wound Skin Appearance) Assessed No Abnormality Assessed -Temperature (Kassandra-wound Skin No Abnormality No Abnormality No Abnormality Appearance) (Pt Warm) (Pt Warm) (Pt Warm) -Tenderness on Palpation (Kassandra-wound No No No Skin Appearance) -Ulcer Cleansing Wound Cleanser Wound Cleanser Soap and Water -Foul Odor after Cleansing No No No -Anesthetic Used 5% Lidocaine 4% Lidocaine 4% Lidocaine Gel Solution Solution #16 Mid Pubic Area -Combined with other wound No No -Current Size (cm) - Length 3.3 2 0.1 -Current Size (cm) - Width 1.7 1 0.1 -Current Size (cm) - Depth 0.1 0.1 0 -Total Square Cm 5.61 2 0.01 -Photo Taken Yes -Tunneling No No -Undermining/Tunneling No No -Circular Undermining No No -Exudate Amt Large Medium None Present -Exudate Type Serosanguineous Serosanguineous -Wound Margin Distinct, Distinct, Outline Outline Attached Attached -Granulation Amt Medium (34-66%) Medium (34-66%) -Granulation Quality [place] -Slough/Fibrin Yes Yes -Necrosis Amt Medium (34-66%) Small (1-33%) -Necrotic Tissue Type Adherent Slough Adherent Slough -Structure Exposed N/A N/A -Texture (Kassandra-wound Skin Appearance) Assessed, Assessed, Assessed Scarring Scarring -Moisture (Kassandra-wound Skin Appearance) Assessed Assessed Assessed -Color (Kassandra-wound Skin Appearance) Assessed Assessed Assessed -Temperature (Kassandra-wound Skin No Abnormality No Abnormality Appearance) (Pt Warm) (Pt Warm) -Tenderness on Palpation (Kassandra-wound No No Skin Appearance) -Ulcer Cleansing Wound Cleanser Wound Cleanser -Foul Odor after Cleansing No No -Anesthetic Used 5% Lidocaine 4% Lidocaine Gel Solution #15 L Groin -Combined with other wound No No -Current Size (cm) - Length 10 10 7 -Current Size (cm) - Width 5.4 5 4.8 -Current Size (cm) - Depth 0.1 0.1 0.1 -Total Square Cm 54.0 50 33.6 -Photo Taken Yes -Tunneling No No -Undermining/Tunneling No No -Circular Undermining No No -Exudate Amt Large Medium Medium -Exudate Type Serosanguineous Serosanguineous Serosanguineous -Wound Margin Distinct, Distinct, Distinct, Outline Outline Outline Attached Attached Attached -Granulation Amt Medium (34-66%) Medium (34-66%) Large (67-100%) -Granulation Quality [place] Red -Slough/Fibrin Yes Yes -Necrosis Amt Medium (34-66%) Small (1-33%) -Necrotic Tissue Type Adherent Slough Adherent Slough -Structure Exposed N/A N/A -Texture (Kassandra-wound Skin Appearance) Assessed, Assessed, Assessed Scarring Scarring -Moisture (Kassandra-wound Skin Appearance) Assessed Assessed Assessed -Color (Kassandra-wound Skin Appearance) Assessed Assessed Assessed -Temperature (Kassandra-wound Skin No Abnormality No Abnormality No Abnormality Appearance) (Pt Warm) (Pt Warm) (Pt Warm) -Tenderness on Palpation (Kassandra-wound No No No Skin Appearance) -Ulcer Cleansing Wound Cleanser Soap and Water -Foul Odor after Cleansing No Yes No -Anesthetic Used 5% Lidocaine 4% Lidocaine 4% Lidocaine Gel Solution Solution WC - Nurse 2 - General Ulcer CM Notes Start: 03/10/25 11:01 Freq: Status: Active Protocol: Activity Type Activity Date Activity User E-sign Co-sign Detail Recorded Client Recorded Date Recorded By Document 03/10/25 11:11 [id number] 03/10/25 11:31 GM Document 03/17/25 12:16 GM [id number] 03/17/25 12:35 GM Document 03/24/25 11:40 GM [id number] 03/24/25 11:52 GM Edit Result 03/24/25 11:40 GM (1) [id number] 03/24/25 11:55 GM (1) #17 R groin - Undermining/Tunneling Starts #2 (O' => 9 clock) - Undermining/Tunneling Ends #2 (O'clock => 6 ) - Maximum Distance #2 (cm) => 2 03/10/25 03/17/25 03/24/25 11:11 12:16 11:40 Wound Center Nurse 2 #17 R groin -Time 11: 12:17 11:41 -Correct Patient Yes Yes Yes -Correct Side, Site, Position Yes Yes Yes -Correct Procedure No Yes Yes -Procedure Performed No Yes Yes -Type of Procedure Debridement Debridement -Clinical Debridement Subcutaneous Subcutaneous -Tissue Removed Subcutaneous Subcutaneous -Post Debridement (cm) - Length 7.2 6.5 5.9 -Post Debridement (cm) - Width 4.1 4.2 3.2 -Post Debridement (cm) - Depth 3.0 2.0 1.0 -Total Square (Post) (cm) 29.52 27.30 18.88 -Area of Debridement (cm) - Length 6.5 5.9 -Area of Debridement (cm) - Width 4.2 3.2 -Total Square (Area) (cm) 27.30 18.88 -Tunneling No No No -Undermining/Tunneling No No No -Undermining/Tunneling Starts #2 (O' 9 clock) -Undermining/Tunneling Ends #2 (O' 6 clock) -Maximum Distance #2 (cm) 2 -Circular Undermining No No No -Wound/Ulcer Outcome Not Healed Not Healed Not Healed -Ulcer Cleansing Not Cleansed Rinsed/ Rinsed/ Irrigated with Irrigated with Saline Saline -Foul Odor after Cleansing No No No -Bioengineered Tissue No No No -Bleeding Controlled with NA Pressure Pressure -Treatment Response Procedure Procedure Tolerated Well Tolerated Well -Offloading No -Debridement - Subq, 1st 20sq cm No Yes #16 Mid Pubic Area -Time : 12:17 11:41 -Correct Patient Yes Yes Yes -Correct Side, Site, Position Yes Yes Yes -Correct Procedure Yes Yes No -Procedure Performed Yes Yes No -Type of Procedure Debridement Debridement -Clinical Debridement Subcutaneous Epidermis / Dermis -Tissue Removed Subcutaneous Epidermis -Post Debridement (cm) - Length 3.0 2.0 -Post Debridement (cm) - Width 1.7 1.0 -Post Debridement (cm) - Depth 0.1 0.1 -Total Square (Post) (cm) 5.10 2.00 -Area of Debridement (cm) - Length 3.0 2.0 -Area of Debridement (cm) - Width 1.7 1.0 -Total Square (Area) (cm) 5.10 2.00 -Tunneling No No No -Undermining/Tunneling No No No -Circular Undermining No No No -Wound/Ulcer Outcome Not Healed Not Healed Healed- Epithelialized -Ulcer Cleansing Rinsed/ Rinsed/ Irrigated with Irrigated with Saline Saline -Foul Odor after Cleansing No No No -Bioengineered Tissue No No No -Bleeding Controlled with Pressure Pressure NA -Treatment Response Procedure Procedure Tolerated Well Tolerated Well -Offloading No -Debridement - Open, 1st 20sq cm Yes -Debridement - Subq, 1st 20sq cm Yes #15 L Groin -Time 11:11 12:17 11:41 -Correct Patient Yes Yes Yes -Correct Side, Site, Position Yes Yes Yes -Correct Procedure No Yes No -Procedure Performed No Yes No -Type of Procedure Debridement -Clinical Debridement Subcutaneous -Tissue Removed Subcutaneous -Post Debridement (cm) - Length 10.0 8.0 6.5 -Post Debridement (cm) - Width 6.0 5.0 4.7 -Post Debridement (cm) - Depth 0.4 0.1 0.1 -Total Square (Post) (cm) 60.00 40.00 30.55 -Area of Debridement (cm) - Length 8.0 -Area of Debridement (cm) - Width 5.0 -Total Square (Area) (cm) 40.00 -Tunneling No No No -Undermining/Tunneling No No No -Circular Undermining No No No -Wound/Ulcer Outcome Not Healed Not Healed Not Healed -Ulcer Cleansing Not Cleansed Rinsed/ Not Cleansed Irrigated with Saline -Foul Odor after Cleansing No No No -Bioengineered Tissue No No No -Bleeding Controlled with NA Pressure NA -Treatment Response Procedure Tolerated Well -Offloading No No -Debridement - Subq, 1st 20sq cm Yes -Debridement, SubQ, ea addt'l 20sq cm 3 or part thereof Pain Scale: 0-10 Numeric Is Patient Pain Free? Yes Yes Yes WC - Nurse 3 - General Ulcer D/C NN Start: 03/10/25 11:01 Freq: Status: Active Protocol: Activity Type Activity Date Activity User E-sign Co-sign Detail Recorded Client Recorded Date Recorded By Document 03/10/25 11:45 [id number] 03/10/25 11:54 KW Document 03/17/25 12:45 KW [id number] 03/17/25 12:45 KW Document 03/24/25 12:13 RB [id number] 03/24/25 12:14 RB 03/10/25 03/17/25 03/24/25 11:45 12:45 12:13 Wound Care Center Nurse 3 #17 R groin -Ulcer Cleansing dakins -Primary Dressing Applied Hysept -Other Dressing dakins gauze dakins moistened gauze -Primary Dressing Covered/Secured with Dry Gauze Dry Gauze Dry Gauze & Roll Gauze, Secured with Tape -Hysept 1 #16 Mid Pubic Area -Primary Dressing Applied Fibracol Plus 4x4 -Primary Dressing Covered/Secured with Dry Gauze Dry Gauze Dry Gauze, Secured with Tape -Fibracol Plus 4x4 1 #15 L Groin -Primary Dressing Applied Fibracol Plus 4x4 -Other Dressing fibracol ABD -Primary Dressing Covered/Secured with Dry Gauze Dry Gauze,Dry Dry Gauze & Gauze & Roll Roll Gauze, Gauze,Secured Secured with with Tape Tape -Fibracol Plus 4x4 1 Treatment Response Procedure Procedure Tolerated Well Tolerated Well Pain Scale: 0-10 Numeric Is Patient Pain Free? No Yes Yes groin -Description Aching -Intensity 5 -Duration (hours) Acute -Pain Behavior Irritability -Pain Aggravating Factors Exercise/ Activity -Alleviating Factors/Interventions Medication -Effectiveness of Alleviating Factor/ Moderately Intervention effective WC - Visit Discharge Discharge Condition Stable Stable Stable Ambulatory Status Ambulatory Ambulatory,Cane Ambulatory Transportation Private Auto Private Auto Private Auto Accompanied by Medication Reconcilliation completed & No No No provided to patient/care provider Clinical Summary of Care Provided Yes Yes Yes Additional Wound Wound debrided: left groin Laterality: Left Operative Diagnosis: no slough present, debridement not performed Additional Wound Wound debrided: right groin Laterality: Right Type of Debridement: Excisional debridement Anesthesia Used: 4% Lidocaine Solution and 5% Lidocaine Gel Depth: Down to and including healthy tissue and in the subcutaneous layer Percentage of wound debrided: 100 Instrument Used: 5mm curette Tissue Removed: Yellow slough, devitalized tissue Severity: Fat Layer Exposed Amount of bleeding with debridement: Mild Bleeding Controlled with: Compression and gauze Patient tolerated procedure: Patient tolerated procedure well Assessment/Plan Assessment/Plan (1) Open wound of pubic region without complication: CODE(S): S31.000A - Unspecified open wound of lower back and pelvis without penetration into retroperitoneum, initial encounter QUALIFIERS: Encounter type: subsequent encounter Qualified Code(s): S31.000D - Unspecified open wound of lower back and pelvis without penetration into retroperitoneum, subsequent encounter (2) Open wound of inguinal region: CODE(S): S31.109A - Unspecified open wound of abdominal wall, unspecified quadrant without penetration into peritoneal cavity, initial encounter QUALIFIERS: Encounter type: subsequent encounter Qualified Code(s): S31.109D - Unspecified open wound of abdominal wall, unspecified quadrant without penetration into peritoneal cavity, subsequent encounter (3) Hypertension: CODE(S): I10 - Essential (primary) hypertension QUALIFIERS: Hypertension type: unspecified Qualified Code(s): I10 - Essential (primary) hypertension (4) Non-healing surgical wound: CODE(S): T81.89XA - Other complications of procedures, not elsewhere classified, initial encounter QUALIFIERS: Encounter type: subsequent encounter Qualified Code(s): T81.89XD - Other complications of procedures, not elsewhere classified, subsequent encounter (5) Hidradenitis suppurativa: CODE(S): L73.2 - Hidradenitis suppurativa (6) Skin ulcer of abdomen with fat layer exposed: CODE(S): L98.492 - Non-pressure chronic ulcer of skin of other sites with fat layer exposed (7) Skin ulcer of left groin with necrosis of muscle: CODE(S): L98.493 - Non-pressure chronic ulcer of skin of other sites with necrosis of muscle (8) Skin ulcer of right groin with fat layer exposed: CODE(S): L98.492 - Non-pressure chronic ulcer of skin of other sites with fat layer exposed PLAN: Plan Debridement performed today in clinic as annotated above. At home wound-care instructions: The patient will wash with antibacterial soap and water and then will apply Fibracol dressing to the left groin and cover with gauze and continue Dakins wet to dry packing of right inguinal/groin ulcer daily. Keep dressing clean and dry. Due to his diabetes and the length of time he has had the ulcers, he would benefit from application of Epifix to decrease the length of wound healing and complications to these ulcers. We will apply to his insurance for approval of treatment with this advanced wound healing treatment. Off-loading: The patient was instructed to avoid pressure and friction on the affected areas. Reposition every 2 hours at minimum. Avoid prolonged standing and/or dangling of legs. When seated, feet should be elevated at chest level. Frequent ambulation is encouraged. Diet: Patient encouraged to increase protein intake while taking caution to avoid high carbohydrate and/or sugar intake. Labs/cultures/imaging: none currently Follow-up: Return in 1 week for wound care follow up. Return sooner or report to the emergency room should symptoms worsen, or new symptoms arise. Note: [employer] speech recognition tax expert software was used to create portions of this document. Sound-alike and misspelled words, as well as other tax expert errors may be contained in the documentation.
[2025-03-31 08:47] VITALS: BP 109/69; PULSE 70; RESP 16; TEMP 35.8
--- NOTE | 2025-03-31 13:50 | PCM.WC.PN ---
History of Present Illness Date of Service: 03/31/25 Chief Complaint: surgical wounds of suprapubic and left/right groin/perineum History of Wound: Mr. Theron Magaña is a 40 y/o male who presents to the wound center today for evaluation and management of his intertriginous wounds as referred by his plastic surgeon Dr. Valle of [facility]. Mr. Magaña has Hidradenitis Suppurative. Mid-January, he had surgery by Dr. Larson to address his HS lesions within his groin. Many of these were able to be closed with sutures, but 2 were left open. He has a relatively small, superficial open wound midline pelvic region and a larger, deeper wound in the inguinal/gluteal cleft. His is a nurse practitioner and cares for his wounds at home. Right now, they are applying wet-to-dry Dakins dressings to the open wounds; cleansing closed wounds with Hibiclens; changing daily. He is currently on Augmentin at the direction of his plastic surgeon. He saw his surgeon this week and Ciprofloxacin was prescribed to treat Pseudomonas infection. He has been dealing with these and similar wound/HS lesions for many years. In the past, he has had wound vacs and the changes were very painful for him. He has tried a few biologics without consistent success; was recently started on one called Bimzelx but too soon to tell if it is providing improvement. Subjective Subjective Theron returns today for follow up of bilateral inguinal surgical wounds. He is tolerating Dakins wet to dry dressings to inguinal areas and Fibracol to the suprapubic area. His pain is better. He is having moderate drainage. He denies fever, chills, odor. Objective Data Objective Data Vital Signs: Vital Signs Temp Pulse Resp BP O2 Del Method 96.5 F L 70 16 109/69 Room Air 03/31/25 08:47 03/31/25 08:47 03/31/25 08:47 03/31/25 08:47 03/31/25 08:47 Oxygen Delivery Method Room Air Physical Exam Const alert, oriented x3 and no apparent distress General Appearance: cooperative and comfortable HEENT normocephalic and head/scalp atraumatic Resp normal respiratory effort Effort and Inspection: able to speak in complete sentences Cardio regular rate and regular rhythm Skin Wounds: wounds noted Wound Narrative: as in clinical panel suprabubic skin ulcer is epithelialized In the left inguinal area there is a large open surgical wound that has completely filled in and is flush with skin, without rolled edges and decreased in size right inguinal area there is a large surgical wound with irregular depth but without rolled edges, good granulation tissue and minimal slough and decreased in size and depth Psych mental status grossly normal, thought process normal, cooperative and affect normal Debridement Note Debridement Note Wound debrided: left groin Laterality: Left No debridement was completed: No debridement was completed today (no slough present) Post-Debridement Measurements and Additional Note: Post-Debridement Measurements/Treatment - Nurse 1 - General Ulcer Assessment Start: 03/10/25 11:01 Freq: Status: Active Protocol: DESMOND Activity Type Activity Date Activity User E-sign Co-sign Detail Recorded Client Recorded Date Recorded By Document 03/10/25 11:01 RB [id number] 03/10/25 11:05 RB Document 03/17/25 12:02 RB [id number] 03/17/25 12:07 RB Document 03/24/25 10:47 KW [id number] 03/24/25 11:00 KW Document 03/31/25 08:47 KW [id number] 03/31/25 08:57 KW 03/10/25 03/17/25 03/24/25 11:01 12:02 10:47 - Today's Visit Information Type of service Follow-up Visit Follow-up Visit Follow-up Visit (Physician/METROLOGY ENGINEER (Physician/METROLOGY ENGINEER (Physician/METROLOGY ENGINEER ) ) ) Arrival Mode Ambulatory Ambulatory Ambulatory,Cane Transfer Assistance None None Accompanied by Patient Identification Verified (Name & Yes Yes Yes ) Patient Requires Transmission-Based No No Precautions Vital Signs Temperature (97.8 F-99.1 F) 96.6 F L 96.7 F L Temperature Source Temporal Temporal Temporal Pulse Rate (60-100) 73 70 74 Pulse Location Monitor Monitor Monitor Respiratory Rate (12-18) 18 18 18 Respiratory rate source Observation Observation Observation Oxygen Delivery Method Room Air Blood Pressure (90/60-120/80) 102/70 110/72 111/71 Blood Pressure Mean (mm Hg) 80 84 84 Source Monitor Monitor Monitor Position Semi-Fowlers Semi-Fowlers Sitting Blood Pressure Location Left Arm Left Arm Left Arm History Since Last Visit- (Skip if this is Patient's initial visit) Have you changed medications since your No No No last visit? Any new allergies or adverse reactions No No No Had a fall/change in ADL's that may No No No increase risk of falls Signs or symptoms of abuse and/or No No No neglect since last visit Have you been in the hospital since your No No No last visit? Has dressing in place as prescribed Yes Yes Yes Has compression in place as prescribed N/A N/A N/A Has offloadiing in place as prescribed N/A N/A N/A Experienced any changes in pain level or No No No management Left Footwear Regular Shoe Regular Shoe Right Footwear Regular Shoe Regular Shoe Pain Scale: 0-10 Numeric Is Patient Pain Free? No Yes Yes groin -Description Aching Throbbing, Aching -Intensity 5 6 -Duration (hours) Acute Acute -Pain Behavior Withdrawal from Withdrawal from Touch, Touch Restlessness -Pain Aggravating Factors Exercise/ Exercise/ Activity, Activity Debridement -Alleviating Factors/Interventions Medication Medication -Effectiveness of Alleviating Factor/ Moderately Minimally Intervention effective effective 03/31/25 08:47 WC - Today's Visit Information Type of service Follow-up Visit (Physician/METROLOGY ENGINEER ) Arrival Mode Ambulatory Transfer Assistance Accompanied by Patient Identification Verified (Name & Yes ) Patient Requires Transmission-Based Precautions Vital Signs Temperature (97.8 F-99.1 F) 96.5 F L Temperature Source Temporal Pulse Rate (60-100) 70 Pulse Location Monitor Respiratory Rate (12-18) 16 Respiratory rate source Observation Oxygen Delivery Method Room Air Blood Pressure (90/60-120/80) 109/69 Blood Pressure Mean (mm Hg) 82 Source Monitor Position Semi-Fowlers Blood Pressure Location Left Arm History Since Last Visit- (Skip if this is Patient's initial visit) Have you changed medications since your No last visit? Any new allergies or adverse reactions No Had a fall/change in ADL's that may No increase risk of falls Signs or symptoms of abuse and/or No neglect since last visit Have you been in the hospital since your No last visit? Has dressing in place as prescribed Yes Has compression in place as prescribed N/A Has offloadiing in place as prescribed N/A Experienced any changes in pain level or No management Left Footwear Regular Shoe Right Footwear Regular Shoe Pain Scale: 0-10 Numeric Is Patient Pain Free? Yes groin -Description -Intensity -Duration (hours) -Pain Behavior -Pain Aggravating Factors -Alleviating Factors/Interventions -Effectiveness of Alleviating Factor/ Intervention WC - Nurse 1 - General Ulcer Measurement Start: 03/10/25 11:01 Freq: Status: Active Protocol: Activity Type Activity Date Activity User E-sign Co-sign Detail Recorded Client Recorded Date Recorded By Document 03/10/25 11:01 RB [id number] 03/10/25 11:05 RB Document 03/17/25 12:02 RB [id number] 03/17/25 12:07 RB Document 03/24/25 10:47 KW [id number] 03/24/25 11:00 KW Document 03/31/25 08:47 KW [id number] 03/31/25 08:57 KW 03/10/25 03/17/25 03/24/25 11:01 12:02 10:47 Wound Center Nurse 1 #16 Mid Pubic Area -Combined with other wound No No -Current Size (cm) - Length 3.3 2 0.1 -Current Size (cm) - Width 1.7 1 0.1 -Current Size (cm) - Depth 0.1 0.1 0 -Total Square Cm 5.61 2 0.01 -Photo Taken Yes -Tunneling No No -Undermining/Tunneling No No -Circular Undermining No No -Exudate Amt Large Medium None Present -Exudate Type Serosanguineous Serosanguineous -Wound Margin Distinct, Distinct, Outline Outline Attached Attached -Granulation Amt Medium (34-66%) Medium (34-66%) -Granulation Quality [place] -Slough/Fibrin Yes Yes -Necrosis Amt Medium (34-66%) Small (1-33%) -Necrotic Tissue Type Adherent Slough Adherent Slough -Structure Exposed N/A N/A -Texture (Kassandra-wound Skin Appearance) Assessed, Assessed, Assessed Scarring Scarring -Moisture (Kassandra-wound Skin Appearance) Assessed Assessed Assessed -Color (Kassandra-wound Skin Appearance) Assessed Assessed Assessed -Temperature (Kassandra-wound Skin No Abnormality No Abnormality Appearance) (Pt Warm) (Pt Warm) -Tenderness on Palpation (Kassandra-wound No No Skin Appearance) -Ulcer Cleansing Wound Cleanser Wound Cleanser -Foul Odor after Cleansing No No -Anesthetic Used 5% Lidocaine 4% Lidocaine Gel Solution #17 R groin -Combined with other wound No No -Current Size (cm) - Length 7 6.8 6 -Current Size (cm) - Width 4.4 1.7 2.2 -Current Size (cm) - Depth 2.7 2 1.3 -Total Square Cm 30.8 11.56 13.2 -Photo Taken Yes -Tunneling No No -Undermining/Tunneling No No -Circular Undermining No No -Exudate Amt Large Large Medium -Exudate Type Serosanguineous Serosanguineous Serosanguineous -Wound Margin Distinct, Distinct, Distinct, Outline Outline Outline Attached Attached Attached -Granulation Amt Medium (34-66%) Large (67-100%) Large (67-100%) -Granulation Quality [place],Red Red -Slough/Fibrin Yes Yes -Necrosis Amt Medium (34-66%) Small (1-33%) -Necrotic Tissue Type Adherent Slough Adherent Slough -Structure Exposed N/A N/A -Texture (Kassandra-wound Skin Appearance) Assessed, Assessed, Assessed Scarring Scarring -Moisture (Kassandra-wound Skin Appearance) Assessed Assessed Assessed -Color (Kassandra-wound Skin Appearance) Assessed No Abnormality Assessed -Temperature (Kassandra-wound Skin No Abnormality No Abnormality No Abnormality Appearance) (Pt Warm) (Pt Warm) (Pt Warm) -Tenderness on Palpation (Kassandra-wound No No No Skin Appearance) -Ulcer Cleansing Wound Cleanser Wound Cleanser Soap and Water -Foul Odor after Cleansing No No No -Anesthetic Used 5% Lidocaine 4% Lidocaine 4% Lidocaine Gel Solution Solution #15 L Groin -Combined with other wound No No -Current Size (cm) - Length 10 10 7 -Current Size (cm) - Width 5.4 5 4.8 -Current Size (cm) - Depth 0.1 0.1 0.1 -Total Square Cm 54.0 50 33.6 -Photo Taken Yes -Tunneling No No -Undermining/Tunneling No No -Circular Undermining No No -Exudate Amt Large Medium Medium -Exudate Type Serosanguineous Serosanguineous Serosanguineous -Wound Margin Distinct, Distinct, Distinct, Outline Outline Outline Attached Attached Attached -Granulation Amt Medium (34-66%) Medium (34-66%) Large (67-100%) -Granulation Quality [place] Red -Slough/Fibrin Yes Yes -Necrosis Amt Medium (34-66%) Small (1-33%) -Necrotic Tissue Type Adherent Slough Adherent Slough -Structure Exposed N/A N/A -Texture (Kassandra-wound Skin Appearance) Assessed, Assessed, Assessed Scarring Scarring -Moisture (Kassandra-wound Skin Appearance) Assessed Assessed Assessed -Color (Kassandra-wound Skin Appearance) Assessed Assessed Assessed -Temperature (Kassandra-wound Skin No Abnormality No Abnormality No Abnormality Appearance) (Pt Warm) (Pt Warm) (Pt Warm) -Tenderness on Palpation (Kassandra-wound No No No Skin Appearance) -Ulcer Cleansing Wound Cleanser Soap and Water -Foul Odor after Cleansing No Yes No -Anesthetic Used 5% Lidocaine 4% Lidocaine 4% Lidocaine Gel Solution Solution 03/31/25 08:47 Wound Center Nurse 1 #16 Mid Pubic Area -Combined with other wound -Current Size (cm) - Length -Current Size (cm) - Width -Current Size (cm) - Depth -Total Square Cm -Photo Taken -Tunneling -Undermining/Tunneling -Circular Undermining -Exudate Amt -Exudate Type -Wound Margin -Granulation Amt -Granulation Quality -Slough/Fibrin -Necrosis Amt -Necrotic Tissue Type -Structure Exposed -Texture (Kassandra-wound Skin Appearance) -Moisture (Kassandra-wound Skin Appearance) -Color (Kassandra-wound Skin Appearance) -Temperature (Kassandra-wound Skin Appearance) -Tenderness on Palpation (Kassandra-wound Skin Appearance) -Ulcer Cleansing -Foul Odor after Cleansing -Anesthetic Used #17 R groin -Combined with other wound -Current Size (cm) - Length 5.2 -Current Size (cm) - Width 2.6 -Current Size (cm) - Depth 1 -Total Square Cm 13.52 -Photo Taken -Tunneling -Undermining/Tunneling -Circular Undermining -Exudate Amt Large -Exudate Type Yellow/Green -Wound Margin Distinct, Outline Attached -Granulation Amt Large (67-100%) -Granulation Quality Red -Slough/Fibrin -Necrosis Amt -Necrotic Tissue Type -Structure Exposed -Texture (Kassandra-wound Skin Appearance) Assessed -Moisture (Kassandra-wound Skin Appearance) Assessed -Color (Kassandra-wound Skin Appearance) Assessed -Temperature (Kassandra-wound Skin No Abnormality Appearance) (Pt Warm) -Tenderness on Palpation (Kassandra-wound No Skin Appearance) -Ulcer Cleansing Soap and Water -Foul Odor after Cleansing -Anesthetic Used 4% Lidocaine Solution #15 L Groin -Combined with other wound -Current Size (cm) - Length 6 -Current Size (cm) - Width 2.5 -Current Size (cm) - Depth 0.1 -Total Square Cm 15.0 -Photo Taken -Tunneling -Undermining/Tunneling -Circular Undermining -Exudate Amt Medium -Exudate Type Yellow/Green -Wound Margin -Granulation Amt Large (67-100%) -Granulation Quality Red -Slough/Fibrin -Necrosis Amt -Necrotic Tissue Type -Structure Exposed -Texture (Kassandra-wound Skin Appearance) Assessed -Moisture (Kassandra-wound Skin Appearance) Assessed -Color (Kassandra-wound Skin Appearance) Assessed -Temperature (Kassandra-wound Skin No Abnormality Appearance) (Pt Warm) -Tenderness on Palpation (Kassandra-wound No Skin Appearance) -Ulcer Cleansing Soap and Water -Foul Odor after Cleansing No -Anesthetic Used 4% Lidocaine Solution WC - Nurse 2 - General Ulcer CM Notes Start: 03/10/25 11:01 Freq: Status: Active Protocol: Activity Type Activity Date Activity User E-sign Co-sign Detail Recorded Client Recorded Date Recorded By Document 03/10/25 11:11 GM [id number] 03/10/25 11:31 GM Document 03/17/25 12:16 GM [id number] 03/17/25 12:35 GM Document 03/24/25 11:40 GM [id number] 03/24/25 11:52 GM Edit Result 03/24/25 11:40 GM (1) [id number] 03/24/25 11:55 GM Document 03/31/25 09:12 GM [id number] 03/31/25 09:27 GM (1) #17 R groin - Undermining/Tunneling Starts #2 (O' => 9 clock) - Undermining/Tunneling Ends #2 (O'clock => 6 ) - Maximum Distance #2 (cm) => 2 03/10/25 03/17/25 03/24/25 11:11 12:16 11:40 Wound Center Nurse 2 #16 Mid Pubic Area -Time 11:11 12:17 11:41 -Correct Patient Yes Yes Yes -Correct Side, Site, Position Yes Yes Yes -Correct Procedure Yes Yes No -Procedure Performed Yes Yes No -Type of Procedure Debridement Debridement -Clinical Debridement Subcutaneous Epidermis / Dermis -Tissue Removed Subcutaneous Epidermis -Post Debridement (cm) - Length 3.0 2.0 -Post Debridement (cm) - Width 1.7 1.0 -Post Debridement (cm) - Depth 0.1 0.1 -Total Square (Post) (cm) 5.10 2.00 -Area of Debridement (cm) - Length 3.0 2.0 -Area of Debridement (cm) - Width 1.7 1.0 -Total Square (Area) (cm) 5.10 2.00 -Tunneling No No No -Undermining/Tunneling No No No -Circular Undermining No No No -Wound/Ulcer Outcome Not Healed Not Healed Healed- Epithelialized -Ulcer Cleansing Rinsed/ Rinsed/ Irrigated with Irrigated with Saline Saline -Foul Odor after Cleansing No No No -Bioengineered Tissue No No No -Bleeding Controlled with Pressure Pressure NA -Treatment Response Procedure Procedure Tolerated Well Tolerated Well -Offloading No -Debridement - Open, 1st 20sq cm Yes -Debridement - Subq, 1st 20sq cm Yes #17 R groin -Time 11:11 12:17 11:41 -Correct Patient Yes Yes Yes -Correct Side, Site, Position Yes Yes Yes -Correct Procedure No Yes Yes -Procedure Performed No Yes Yes -Type of Procedure Debridement Debridement -Clinical Debridement Subcutaneous Subcutaneous -Tissue Removed Subcutaneous Subcutaneous -Post Debridement (cm) - Length 7.2 6.5 5.9 -Post Debridement (cm) - Width 4.1 4.2 3.2 -Post Debridement (cm) - Depth 3.0 2.0 1.0 -Total Square (Post) (cm) 29.52 27.30 18.88 -Area of Debridement (cm) - Length 6.5 5.9 -Area of Debridement (cm) - Width 4.2 3.2 -Total Square (Area) (cm) 27.30 18.88 -Tunneling No No No -Undermining/Tunneling No No No -Undermining/Tunneling Starts #2 (O' 9 clock) -Undermining/Tunneling Ends #2 (O' 6 clock) -Maximum Distance #2 (cm) 2 -Circular Undermining No No No -Wound/Ulcer Outcome Not Healed Not Healed Not Healed -Ulcer Cleansing Not Cleansed Rinsed/ Rinsed/ Irrigated with Irrigated with Saline Saline -Foul Odor after Cleansing No No No -Bioengineered Tissue No No No -Bleeding Controlled with NA Pressure Pressure -Treatment Response Procedure Procedure Tolerated Well Tolerated Well -Offloading No -Debridement - Subq, 1st 20sq cm No Yes #15 L Groin -Time 11:11 12:17 11:41 -Correct Patient Yes Yes Yes -Correct Side, Site, Position Yes Yes Yes -Correct Procedure No Yes No -Procedure Performed No Yes No -Type of Procedure Debridement -Clinical Debridement Subcutaneous -Tissue Removed Subcutaneous -Post Debridement (cm) - Length 10.0 8.0 6.5 -Post Debridement (cm) - Width 6.0 5.0 4.7 -Post Debridement (cm) - Depth 0.4 0.1 0.1 -Total Square (Post) (cm) 60.00 40.00 30.55 -Area of Debridement (cm) - Length 8.0 -Area of Debridement (cm) - Width 5.0 -Total Square (Area) (cm) 40.00 -Tunneling No No No -Undermining/Tunneling No No No -Circular Undermining No No No -Wound/Ulcer Outcome Not Healed Not Healed Not Healed -Ulcer Cleansing Not Cleansed Rinsed/ Not Cleansed Irrigated with Saline -Foul Odor after Cleansing No No No -Bioengineered Tissue No No No -Bleeding Controlled with NA Pressure NA -Treatment Response Procedure Tolerated Well -Offloading No No -Debridement - Subq, 1st 20sq cm Yes -Debridement, SubQ, ea addt'l 20sq cm 3 or part thereof Pain Scale: 0-10 Numeric Is Patient Pain Free? Yes Yes Yes 03/31/25 09:12 Wound Center Nurse 2 #16 Mid Pubic Area -Time -Correct Patient -Correct Side, Site, Position -Correct Procedure -Procedure Performed -Type of Procedure -Clinical Debridement -Tissue Removed -Post Debridement (cm) - Length -Post Debridement (cm) - Width -Post Debridement (cm) - Depth -Total Square (Post) (cm) -Area of Debridement (cm) - Length -Area of Debridement (cm) - Width -Total Square (Area) (cm) -Tunneling -Undermining/Tunneling -Circular Undermining -Wound/Ulcer Outcome -Ulcer Cleansing -Foul Odor after Cleansing -Bioengineered Tissue -Bleeding Controlled with -Treatment Response -Offloading -Debridement - Open, 1st 20sq cm -Debridement - Subq, 1st 20sq cm #17 R groin -Time 09:12 -Correct Patient Yes -Correct Side, Site, Position Yes -Correct Procedure Yes -Procedure Performed Yes -Type of Procedure Debridement -Clinical Debridement Subcutaneous -Tissue Removed Subcutaneous -Post Debridement (cm) - Length 5.5 -Post Debridement (cm) - Width 3.1 -Post Debridement (cm) - Depth 1.0 -Total Square (Post) (cm) 17.05 -Area of Debridement (cm) - Length 5.5 -Area of Debridement (cm) - Width 3.1 -Total Square (Area) (cm) 17.05 -Tunneling No -Undermining/Tunneling No -Undermining/Tunneling Starts #2 (O' clock) -Undermining/Tunneling Ends #2 (O' clock) -Maximum Distance #2 (cm) -Circular Undermining No -Wound/Ulcer Outcome Not Healed -Ulcer Cleansing Rinsed/ Irrigated with Saline -Foul Odor after Cleansing No -Bioengineered Tissue No -Bleeding Controlled with Pressure -Treatment Response Procedure Tolerated Well -Offloading -Debridement - Subq, 1st 20sq cm Yes #15 L Groin -Time 09:12 -Correct Patient Yes -Correct Side, Site, Position Yes -Correct Procedure No -Procedure Performed No -Type of Procedure -Clinical Debridement -Tissue Removed -Post Debridement (cm) - Length 5.5 -Post Debridement (cm) - Width 3.5 -Post Debridement (cm) - Depth 0.1 -Total Square (Post) (cm) 19.25 -Area of Debridement (cm) - Length -Area of Debridement (cm) - Width -Total Square (Area) (cm) -Tunneling No -Undermining/Tunneling No -Circular Undermining No -Wound/Ulcer Outcome Not Healed -Ulcer Cleansing Not Cleansed -Foul Odor after Cleansing No -Bioengineered Tissue No -Bleeding Controlled with NA -Treatment Response -Offloading No -Debridement - Subq, 1st 20sq cm -Debridement, SubQ, ea addt'l 20sq cm or part thereof Pain Scale: 0-10 Numeric Is Patient Pain Free? Yes WC - Nurse 3 - General Ulcer D/C NN Start: 03/10/25 11:01 Freq: Status: Active Protocol: Activity Type Activity Date Activity User E-sign Co-sign Detail Recorded Client Recorded Date Recorded By Document 03/10/25 11:45 KW [id number] 03/10/25 11:54 KW Document 03/17/25 12:45 KW [id number] 03/17/25 12:45 KW Document 03/24/25 12:13 RB [id number] 03/24/25 12:14 RB Document 03/31/25 09:46 GM [id number] 03/31/25 09:46 03/10/25 03/17/25 03/24/25 11:45 12:45 12:13 Wound Care Center Nurse 3 #16 Mid Pubic Area -Primary Dressing Applied Fibracol Plus 4x4 -Primary Dressing Covered/Secured with Dry Gauze Dry Gauze Dry Gauze, Secured with Tape -Fibracol Plus 4x4 1 #17 R groin -Ulcer Cleansing dakins -Foul Odor after Cleansing -Primary Dressing Applied Hysept -Other Dressing dakins gauze dakins moistened gauze -Primary Dressing Covered/Secured with Dry Gauze Dry Gauze Dry Gauze & Roll Gauze, Secured with Tape -Hysept 1 #15 L Groin -Ulcer Cleansing -Foul Odor after Cleansing -Primary Dressing Applied Fibracol Plus 4x4 -Other Dressing fibracol ABD -Primary Dressing Covered/Secured with Dry Gauze Dry Gauze,Dry Dry Gauze & Gauze & Roll Roll Gauze, Gauze,Secured Secured with with Tape Tape -Fibracol Plus 4x4 1 Treatment Response Procedure Procedure Tolerated Well Tolerated Well Pain Scale: 0-10 Numeric Is Patient Pain Free? No Yes Yes groin -Description Aching -Intensity 5 -Duration (hours) Acute -Pain Behavior Irritability -Pain Aggravating Factors Exercise/ Activity -Alleviating Factors/Interventions Medication -Effectiveness of Alleviating Factor/ Moderately Intervention effective WC - Visit Discharge Discharge Condition Stable Stable Stable Ambulatory Status Ambulatory Ambulatory,Cane Ambulatory Transportation Private Auto Private Auto Private Auto Accompanied by Medication Reconcilliation completed & No No No provided to patient/care provider Clinical Summary of Care Provided Yes Yes Yes 03/31/25 09:46 Wound Care Center Nurse 3 #16 Mid Pubic Area -Primary Dressing Applied -Primary Dressing Covered/Secured with -Fibracol Plus 4x4 #17 R groin -Ulcer Cleansing Not Cleansed -Foul Odor after Cleansing No -Primary Dressing Applied -Other Dressing -Primary Dressing Covered/Secured with Dry Gauze,Dry Gauze & Roll Gauze,Secured with Tape -Hysept #15 L Groin -Ulcer Cleansing Not Cleansed -Foul Odor after Cleansing No -Primary Dressing Applied Fibracol Plus 4x4 -Other Dressing -Primary Dressing Covered/Secured with Dry Gauze,Dry Gauze & Roll Gauze,Secured with Tape -Fibracol Plus 4x4 1 Treatment Response Pain Scale: 0-10 Numeric Is Patient Pain Free? Yes groin -Description -Intensity -Duration (hours) -Pain Behavior -Pain Aggravating Factors -Alleviating Factors/Interventions -Effectiveness of Alleviating Factor/ Intervention WC - Visit Discharge Discharge Condition Stable Ambulatory Status Ambulatory Transportation Private Auto Accompanied by Medication Reconcilliation completed & provided to patient/care provider Clinical Summary of Care Provided Yes Additional Wound Wound debrided: right groin Laterality: Right Type of Debridement: Excisional debridement Anesthesia Used: 4% Lidocaine Solution and 5% Lidocaine Gel Depth: Down to and including healthy tissue and in the subcutaneous layer Percentage of wound debrided: 100 Instrument Used: 5mm curette Tissue Removed: Yellow slough, devitalized tissue Severity: Fat Layer Exposed Amount of bleeding with debridement: Mild Bleeding Controlled with: Compression and gauze Patient tolerated procedure: Patient tolerated procedure well Assessment/Plan Assessment/Plan (1) Open wound of pubic region without complication: CODE(S): S31.000A - Unspecified open wound of lower back and pelvis without penetration into retroperitoneum, initial encounter QUALIFIERS: Encounter type: subsequent encounter Qualified Code(s): S31.000D - Unspecified open wound of lower back and pelvis without penetration into retroperitoneum, subsequent encounter (2) Open wound of inguinal region: CODE(S): S31.109A - Unspecified open wound of abdominal wall, unspecified quadrant without penetration into peritoneal cavity, initial encounter QUALIFIERS: Encounter type: subsequent encounter Qualified Code(s): S31.109D - Unspecified open wound of abdominal wall, unspecified quadrant without penetration into peritoneal cavity, subsequent encounter (3) Hypertension: CODE(S): I10 - Essential (primary) hypertension QUALIFIERS: Hypertension type: unspecified Qualified Code(s): I10 - Essential (primary) hypertension (4) Non-healing surgical wound: CODE(S): T81.89XA - Other complications of procedures, not elsewhere classified, initial encounter QUALIFIERS: Encounter type: subsequent encounter Qualified Code(s): T81.89XD - Other complications of procedures, not elsewhere classified, subsequent encounter (5) Hidradenitis suppurativa: CODE(S): L73.2 - Hidradenitis suppurativa (6) Skin ulcer of abdomen with fat layer exposed: CODE(S): L98.492 - Non-pressure chronic ulcer of skin of other sites with fat layer exposed (7) Skin ulcer of left groin with necrosis of muscle: CODE(S): L98.493 - Non-pressure chronic ulcer of skin of other sites with necrosis of muscle (8) Skin ulcer of right groin with fat layer exposed: CODE(S): L98.492 - Non-pressure chronic ulcer of skin of other sites with fat layer exposed PLAN: Plan Debridement performed today in clinic as annotated above. At home wound-care instructions: The patient will wash with antibacterial soap and water and then will apply Fibracol dressing to the left groin and cover with gauze and continue Dakins wet to dry packing of right inguinal/groin ulcer daily. Keep dressing clean and dry. Due to his diabetes and the length of time he has had the ulcers, he would benefit from application of Epifix to decrease the length of wound healing and complications to these ulcers. We will apply to his insurance for approval of treatment with this advanced wound healing treatment. Off-loading: The patient was instructed to avoid pressure and friction on the affected areas. Reposition every 2 hours at minimum. Avoid prolonged standing and/or dangling of legs. When seated, feet should be elevated at chest level. Frequent ambulation is encouraged. Diet: Patient encouraged to increase protein intake while taking caution to avoid high carbohydrate and/or sugar intake. Labs/cultures/imaging: none currently Follow-up: Return in 2 weeks for wound care follow up. Return sooner or report to the emergency room should symptoms worsen, or new symptoms arise. Note: L2[employer] speech recognition diamond broker software was used to create portions of this document. Sound-alike and misspelled words, as well as other diamond broker errors may be contained in the documentation.
== END 2025-04-08 23:59 | disposition home or self-care (01) ==
LOC: WC 08:45
PROVIDERS: PCP Nurse Practitioner Family; Referring Provider Nurse Practitioner Family; Visit Provider Family Medicine
DX: E11.622 Type 2 diabetes mellitus with other skin ulcer (principal); L98.493 Non-pressure chronic ulcer of skin of other sites with necrosis of muscle; L98.492 Non-pressure chronic ulcer of skin of other sites with fat layer exposed; S31.000D Unspecified open wound of lower back and pelvis without penetration into retroperitoneum, subsequent encounter; I10 Essential (primary) hypertension; L73.2 Hidradenitis suppurativa; S31.109D Unspecified open wound of abdominal wall, unspecified quadrant without penetration into peritoneal cavity, subsequent encounter; T81.89XD Other complications of procedures, not elsewhere classified, subsequent encounter; Z79.82 Long term (current) use of aspirin; Z79.84 Long term (current) use of oral hypoglycemic drugs
CPT/HCPCS: 11042; 11045; 97597

== ENCOUNTER 2025-04-28 10:45 | Outpatient (RCR) | payer BC, SELFPAY ==
[2025-04-09 00:40] VITALS: BP 109/69; PULSE 70; RESP 16; TEMP 35.8
[2025-04-14 10:51] VITALS: RESP 18
--- NOTE | 2025-04-14 14:13 | PN.PCM_ITS ---
History of Present Illness Date of Service: 04/14/25 Chief Complaint: surgical wounds of suprapubic and left/right groin/perineum History of Wound: Mr. Theron Magaña is a 40 y/o male who presents to the wound center today for evaluation and management of his intertriginous wounds as referred by his plastic surgeon Dr. Valle of [facility]. Mr. Magaña has Hidradenitis Suppurative. Mid-January, he had surgery by Dr. Larson to address his HS lesions within his groin. Many of these were able to be closed with sutures, but 2 were left open. He has a relatively small, superficial open wound midline pelvic region and a larger, deeper wound in the inguinal/gluteal cleft. His is a nurse practitioner and cares for his wounds at home. Right now, they are applying wet-to-dry Dakins dressings to the open wounds; cleansing closed wounds with Hibiclens; changing daily. He is currently on Augmentin at the direction of his plastic surgeon. He saw his surgeon this week and Ciprofloxacin was prescribed to treat Pseudomonas infection. He has been dealing with these and similar wound/HS lesions for many years. In the past, he has had wound vacs and the changes were very painful for him. He has tried a few biologics without consistent success; was recently started on one called Bimzelx but too soon to tell if it is providing improvement. Subjective Subjective Theron returns today for follow up of bilateral inguinal surgical wounds. He is tolerating Dakins wet to dry dressings to right inguinal area and Fibracol to the left inguinal area. His pain is better. He is having light to moderate drainage. He did develop opening/ulcer of his left groin inguinal area superior to the ulcer being treated that is draining and similar to previous HS episodes. Dr. Valle aware and advised to use Dakins to the area. He denies fever, chills, odor. Objective Data Objective Data Vital Signs: Vital Signs Temp Pulse Resp BP O2 Del Method 96.5 F L 70 18 109/69 Room Air 04/09/25 00:40 04/09/25 00:40 04/14/25 10:51 04/09/25 00:40 04/14/25 10:51 Oxygen Delivery Method Room Air Physical Exam Const alert, oriented x3 and no apparent distress General Appearance: cooperative and comfortable HEENT normocephalic and head/scalp atraumatic Resp normal respiratory effort Effort and Inspection: able to speak in complete sentences Cardio regular rate and regular rhythm Skin Wounds: wounds noted Wound Narrative: as in clinical panel suprabubic skin ulcer is epithelialized In the left inguinal area there is a large open surgical wound that has completely filled in and is flush with skin, without rolled edges and decreased in size right inguinal area there is a large surgical wound with good granulation tissue and minimal slough and decreased in size and depth left inguinal area, crease above ulcer there are 2 open ulcers that appear to be hidradenitis with cloudy yellow drainage Psych mental status grossly normal, thought process normal, cooperative and affect normal Debridement Note Debridement Note Wound debrided: left groin Laterality: Left Type of Debridement: Excisional debridement Anesthesia Used: 4% Lidocaine Solution and 5% Lidocaine Gel Depth: Down to and including healthy tissue and in the subcutaneous layer Percentage of wound debrided: 100 Instrument Used: 5mm curette Tissue Removed: Yellow slough, devitalized tissue Severity: Fat Layer Exposed Amount of bleeding with debridement: Mild Bleeding Controlled with: Compression and gauze Patient tolerated procedure: Patient tolerated procedure well Post-Debridement Measurements and Additional Note: Post-Debridement Measurements/Treatment LISA - Nurse 1 - General Ulcer Assessment Start: 04/14/25 10:51 Freq: Status: Active Protocol: DESMOND Activity Type Activity Date Activity User E-sign Co-sign Detail Recorded Client Recorded Date Recorded By Document 04/14/25 10:51 [id number] 04/14/25 11:00 [email or web address] 04/14/25 10:51 - Today's Visit Information Type of service Follow-up Visit (Physician/ENVIRONMENTAL ENGINEER SCIENTIST ) Arrival Mode Ambulatory Accompanied by Patient Identification Verified (Name & Yes ) Vital Signs Temperature Source Temporal Pulse Location Monitor Respiratory Rate (12-18) 18 Respiratory rate source Monitor Oxygen Delivery Method Room Air Source Monitor Position Semi-Fowlers Blood Pressure Location Left Arm History Since Last Visit- (Skip if this is Patient's initial visit) Have you changed medications since your No last visit? Any new allergies or adverse reactions No Had a fall/change in ADL's that may No increase risk of falls Signs or symptoms of abuse and/or No neglect since last visit Have you been in the hospital since your No last visit? Has dressing in place as prescribed Yes Has compression in place as prescribed N/A Has offloadiing in place as prescribed N/A Experienced any changes in pain level or No management Left Footwear Regular Shoe Right Footwear Regular Shoe Pain Scale: 0-10 Numeric Is Patient Pain Free? Yes WC - Nurse 1 - General Ulcer Measurement Start: 04/14/25 10:51 Freq: Status: Active Protocol: Activity Type Activity Date Activity User E-sign Co-sign Detail Recorded Client Recorded Date Recorded By Document 04/14/25 10:51 [id number] 04/14/25 11:00 04/14/25 10:51 Wound Center Nurse 1 #17 R groin -Current Size (cm) - Length 4 -Current Size (cm) - Width 2 -Current Size (cm) - Depth 0.3 -Total Square Cm 8 -Exudate Amt Large -Exudate Type Serosanguineous -Wound Margin Thickened -Granulation Amt Large (67-100%) -Granulation Quality Red -Texture (Kassandra-wound Skin Appearance) Assessed -Moisture (Kassandra-wound Skin Appearance) Assessed -Color (Kassandra-wound Skin Appearance) Assessed -Temperature (Kassandra-wound Skin No Abnormality Appearance) (Pt Warm) -Tenderness on Palpation (Kassandra-wound No Skin Appearance) -Ulcer Cleansing Soap and Water -Foul Odor after Cleansing No -Anesthetic Used 4% Lidocaine Solution #15 L Groin -Current Size (cm) - Length 1 -Current Size (cm) - Width 6 -Current Size (cm) - Depth 0.1 -Total Square Cm 6 -Exudate Amt Medium -Exudate Type Serosanguineous -Wound Margin Distinct, Outline Attached -Granulation Amt Large (67-100%) -Granulation Quality Red -Texture (Kassandra-wound Skin Appearance) Assessed -Moisture (Kassandra-wound Skin Appearance) Assessed, Maceration -Color (Kassandra-wound Skin Appearance) Assessed -Temperature (Kassandra-wound Skin No Abnormality Appearance) (Pt Warm) -Tenderness on Palpation (Kassandra-wound No Skin Appearance) -Ulcer Cleansing Soap and Water -Foul Odor after Cleansing No -Anesthetic Used 4% Lidocaine Solution LISA - Nurse 2 - General Ulcer CM Notes Start: 04/14/25 10:51 Freq: Status: Active Protocol: Activity Type Activity Date Activity User E-sign Co-sign Detail Recorded Client Recorded Date Recorded By Document 04/14/25 12:19 [id number] 04/14/25 12:24 04/14/25 12:19 Wound Center Nurse 2 #17 R groin -Time 12:19 -Correct Patient Yes -Correct Side, Site, Position Yes -Correct Procedure Yes -Procedure Performed Yes -Type of Procedure Debridement -Clinical Debridement Subcutaneous -Tissue Removed Subcutaneous -Post Debridement (cm) - Length 4.2 -Post Debridement (cm) - Width 2.5 -Post Debridement (cm) - Depth 0.2 -Total Square (Post) (cm) 10.50 -Area of Debridement (cm) - Length 4.2 -Area of Debridement (cm) - Width 2.5 -Total Square (Area) (cm) 10.50 -Tunneling No -Undermining/Tunneling No -Circular Undermining No -Wound/Ulcer Outcome Not Healed -Ulcer Cleansing Rinsed/ Irrigated with Saline -Foul Odor after Cleansing No -Bioengineered Tissue Yes -Type of Bioengineered Tissue Epifix Mesh -Expiration Date 09/09/29 -Product Lot Number [id number] -Percent Used 100 -Lot number of Saline Used [id number] -Bleeding Controlled with Pressure -Treatment Response Procedure Tolerated Well -Offloading No -Debridement - Subq, 1st 20sq cm No -Apply Skin Sub - 1st 25 sq cm - Legs 1 -Epifix Mesh Application 1-4 (per sq 11 cm) #15 L Groin -Time 12:22 -Correct Patient Yes -Correct Side, Site, Position Yes -Correct Procedure Yes -Procedure Performed Yes -Type of Procedure Debridement -Clinical Debridement Subcutaneous -Tissue Removed Subcutaneous -Post Debridement (cm) - Length 4.5 -Post Debridement (cm) - Width 4.0 -Post Debridement (cm) - Depth 0.1 -Total Square (Post) (cm) 18.00 -Area of Debridement (cm) - Length 4.5 -Area of Debridement (cm) - Width 4.0 -Total Square (Area) (cm) 18.00 -Tunneling No -Undermining/Tunneling No -Circular Undermining No -Wound/Ulcer Outcome Not Healed -Ulcer Cleansing Rinsed/ Irrigated with Saline -Foul Odor after Cleansing No -Bioengineered Tissue No -Bleeding Controlled with Pressure -Treatment Response Procedure Tolerated Well -Offloading No -Debridement - Subq, 1st 20sq cm Yes -Debridement, SubQ, ea addt'l 20sq cm 1 or part thereof Pain Scale: 0-10 Numeric Is Patient Pain Free? Yes - Nurse 3 - General Ulcer D/C NN Start: 04/14/25 10:51 Freq: Status: Active Protocol: Activity Type Activity Date Activity User E-sign Co-sign Detail Recorded Client Recorded Date Recorded By Document 04/14/25 12:31 [id number] 04/14/25 12:31 04/14/25 12:31 Wound Care Center Nurse 3 #17 R groin -Primary Dressing Covered/Secured with Dry Gauze, Secured with Tape #15 L Groin -Primary Dressing Covered/Secured with Dry Gauze, Secured with Tape Pain Scale: 0-10 Numeric Is Patient Pain Free? Yes WC - Visit Discharge Discharge Condition Stable Ambulatory Status Ambulatory Transportation Private Auto Medication Reconcilliation completed & No provided to patient/care provider Clinical Summary of Care Provided Yes Additional Wound Wound debrided: right groin/inguinal ulcer Laterality: Right Type of Debridement: Excisional debridement Anesthesia Used: 4% Lidocaine Solution and 5% Lidocaine Gel Depth: Down to and including healthy tissue and in the subcutaneous layer Percentage of wound debrided: 100 Instrument Used: 5mm curette Tissue Removed: Yellow slough, devitalized tissue Severity: Fat Layer Exposed Amount of bleeding with debridement: Mild Bleeding Controlled with: Compression and gauze Assessment/Plan Assessment/Plan (1) Open wound of pubic region without complication: CODE(S): S31.000A - Unspecified open wound of lower back and pelvis without penetration into retroperitoneum, initial encounter QUALIFIERS: Encounter type: subsequent encounter Qualified Code(s): S31.000D - Unspecified open wound of lower back and pelvis without penetration into retroperitoneum, subsequent encounter (2) Open wound of inguinal region: CODE(S): S31.109A - Unspecified open wound of abdominal wall, unspecified quadrant without penetration into peritoneal cavity, initial encounter QUALIFIERS: Encounter type: subsequent encounter Qualified Code(s): S31.109D - Unspecified open wound of abdominal wall, unspecified quadrant without penetration into peritoneal cavity, subsequent encounter (3) Hypertension: CODE(S): I10 - Essential (primary) hypertension QUALIFIERS: Hypertension type: unspecified Qualified Code(s): I10 - Essential (primary) hypertension (4) Non-healing surgical wound: CODE(S): T81.89XA - Other complications of procedures, not elsewhere clas sified, initial encounter QUALIFIERS: Encounter type: subsequent encounter Qualified Code(s): T81.89XD - Other complications of procedures, not elsewhere classified, subsequent encounter (5) Hidradenitis suppurativa: CODE(S): L73.2 - Hidradenitis suppurativa (6) Skin ulcer of abdomen with fat layer exposed: CODE(S): L98.492 - Non-pressure chronic ulcer of skin of other sites with fat layer exposed (7) Skin ulcer of left groin with necrosis of muscle: CODE(S): L98.493 - Non-pressure chronic ulcer of skin of other sites with necrosis of muscle (8) Skin ulcer of right groin with fat layer exposed: CODE(S): L98.492 - Non-pressure chronic ulcer of skin of other sites with fat layer exposed PLAN: Plan Debridement performed today in clinic as annotated above. At home wound-care instructions: The patient will keep outer dressing clean and dry and change daily or as needed. He will not shower. Epifix applied today per lamp tester and inspector guidelines to right groin/inguinal ulcer using 100% of product and rehydrated with saline, wound veil secured over product with steri-strips. Patient advised to keep this dry and intact. Due to his diabetes and the length of time he has had the ulcers, he would benefit from application of Epifix to decrease the length of wound healing and complications to these ulcers. Insurance has approved the application of Epifix. Off-loading: The patient was instructed to avoid pressure and friction on the affected areas. Reposition every 2 hours at minimum. Avoid prolonged standing and/or dangling of legs. When seated, feet should be elevated at chest level. Frequent ambulation is encouraged. Diet: Patient encouraged to increase protein intake while taking caution to avoid high carbohydrate and/or sugar intake. Labs/cultures/imaging: Wound culture taken today of left inguinal area above ulcer. Follow-up: Return in 1 week for wound care follow up. Return sooner or report to the emergency room should symptoms worsen, or new symptoms arise. Note: [employer] speech recognition plate painter software was used to create portions of this document. Sound-alike and misspelled words, as well as other plate painter errors may be contained in the documentation.
--- NOTE | 2025-04-18 13:19 | WC ---
received call from patient. patient states that his epi fell off on Thursday04/15/25. Informed patient to use the previous dressing Fibracol and will follow up with Dr. Sinha on Thursday. patient states that he has plenty of dressings to use till Thursday04/21/25. patient also asked if he could shower in the meantime. instructed pt he could shower since the Epi was no longer applied to wound.
[2025-04-21 10:46] VITALS: BP 114/77; PULSE 69; RESP 16; TEMP 35.9
--- NOTE | 2025-04-21 12:15 | PCM.WC.PN ---
History of Present Illness Date of Service: 04/21/25 Chief Complaint: surgical wounds of suprapubic and left/right groin/perineum History of Wound: Mr. Theron Magaña is a 40 y/o male who presents to the wound center today for evaluation and management of his intertriginous wounds as referred by his plastic surgeon Dr. Valle of [facility]. Mr. Magaña has Hidradenitis Suppurative. Mid-January, he had surgery by Dr. Larson to address his HS lesions within his groin. Many of these were able to be closed with sutures, but 2 were left open. He has a relatively small, superficial open wound midline pelvic region and a larger, deeper wound in the inguinal/gluteal cleft. His is a nurse practitioner and cares for his wounds at home. Right now, they are applying wet-to-dry Dakins dressings to the open wounds; cleansing closed wounds with Hibiclens; changing daily. He is currently on Augmentin at the direction of his plastic surgeon. He saw his surgeon this week and Ciprofloxacin was prescribed to treat Pseudomonas infection. He has been dealing with these and similar wound/HS lesions for many years. In the past, he has had wound vacs and the changes were very painful for him. He has tried a few biologics without consistent success; was recently started on one called Bimzelx but too soon to tell if it is providing improvement. Subjective Subjective Theron returns today for follow up of bilateral inguinal surgical wounds. He tolerated Epifix application to right inguinal area and Fibracol to the left inguinal area. His pain is better. He is having light to moderate drainage. He did develop opening/ulcer of his left groin inguinal area superior to the ulcer being treated that is draining and similar to previous HS episodes. Culture taken last week was positive for pseudomonas, anaerobic bacteria and Staph. He has been tolerating treatment with Dakins to this area. He denies fever, chills, odor. Objective Data Objective Data Vital Signs: Vital Signs Temp Pulse Resp BP O2 Del Method 96.6 F L 69 16 114/77 Room Air 04/21/25 10:46 04/21/25 10:46 04/21/25 10:46 04/21/25 10:46 04/21/25 10:46 Oxygen Delivery Method Room Air Lab / Micro Data Micro: Microbiology 04/14/25 12:14 Wound - Groin Gram Stain - Final 04/14/25 12:14 Wound - Groin Wound Culture - Final Pseudomonas aeruginosa Staphylococcus aureus 04/14/25 12:14 Wound - Groin Anaerobic Culture - Final Clostridium group Physical Exam Const alert, oriented x3 and no apparent distress General Appearance: cooperative and comfortable HEENT normocephalic and head/scalp atraumatic Resp normal respiratory effort Effort and Inspection: able to speak in complete sentences Cardio regular rate and regular rhythm Skin Wounds: wounds noted Wound Narrative: as in clinical panel suprabubic skin ulcer is epithelialized In the left inguinal area there is a large open surgical wound that has completely filled in and is flush with skin, without rolled edges and decreased in size right inguinal area there is a large surgical wound with good granulation tissue and minimal slough and decreased in size and depth left inguinal area, crease above ulcer there are 2 open ulcers that appear to be hidradenitis with cloudy yellow drainage Psych mental status grossly normal, thought process normal, cooperative and affect normal Debridement Note Debridement Note Wound debrided: left groin Laterality: Left Type of Debridement: Excisional debridement Anesthesia Used: 4% Lidocaine Solution and 5% Lidocaine Gel Depth: Down to and including healthy tissue and in the subcutaneous layer Percentage of wound debrided: 100 Instrument Used: 5mm curette Tissue Removed: Yellow slough, devitalized tissue Severity: Fat Layer Exposed Amount of bleeding with debridement: Mild Bleeding Controlled with: Compression and gauze Patient tolerated procedure: Patient tolerated procedure well Post-Debridement Measurements and Additional Note: Post-Debridement Measurements/Treatment - Nurse 1 - General Ulcer Assessment Start: 04/14/25 10:51 Freq: Status: Active Protocol: [email or web address] Activity Type Activity Date Activity User E-sign Co-sign Detail Recorded Client Recorded Date Recorded By Document 04/14/25 10:51 [email or web address] [id number] 04/14/25 11:00 KW Document 04/21/25 10:46 [email or web address] [id number] 04/21/25 10:53 KW 04/14/25 04/21/25 10:51 10:46 - Today's Visit Information Type of service Follow-up Visit Follow-up Visit (Physician/AUTOMOTIVE DESIGN LAYOUT DRAFTER (Physician/AUTOMOTIVE DESIGN LAYOUT DRAFTER ) ) Arrival Mode Ambulatory Ambulatory Accompanied by Patient Identification Verified (Name & Yes No ) Vital Signs Temperature (97.8 F-99.1 F) 96.6 F L Temperature Source Temporal Temporal Pulse Rate (60-100) 69 Pulse Location Monitor Monitor Respiratory Rate (12-18) 18 16 Respiratory rate source Monitor Observation Oxygen Delivery Method Room Air Room Air Blood Pressure (90/60-120/80) 114/77 Blood Pressure Mean (mm Hg) 89 Source Monitor Monitor Position Semi-Fowlers Sitting Blood Pressure Location Left Arm Right Arm History Since Last Visit- (Skip if this is Patient's initial visit) Have you changed medications since your No No last visit? Any new allergies or adverse reactions No No Had a fall/change in ADL's that may No No increase risk of falls Signs or symptoms of abuse and/or No No neglect since last visit Have you been in the hospital since your No No last visit? Has dressing in place as prescribed Yes Yes Has compression in place as prescribed N/A N/A Has offloadiing in place as prescribed N/A N/A Experienced any changes in pain level or No No management Left Footwear Regular Shoe Regular Shoe Right Footwear Regular Shoe Regular Shoe Pain Scale: 0-10 Numeric Is Patient Pain Free? Yes Yes WC - Nurse 1 - General Ulcer Measurement Start: 04/14/25 10:51 Freq: Status: Active Protocol: Activity Type Activity Date Activity User E-sign Co-sign Detail Recorded Client Recorded Date Recorded By Document 04/14/25 10:51 [id number] 04/14/25 11:00 KW Document 04/21/25 10:46 KW [id number] 04/21/25 10:53 KW 04/14/25 04/21/25 10:51 10:46 Wound Center Nurse 1 #17 R groin -Current Size (cm) - Length 4 3 -Current Size (cm) - Width 2 1.5 -Current Size (cm) - Depth 0.3 0.2 -Total Square Cm 8 4.5 -Date of Last Picture (Recall this 04/21/25 field) -Exudate Amt Large Medium -Exudate Type Serosanguineous Serosanguineous -Wound Margin Thickened Thickened -Granulation Amt Large (67-100%) Large (67-100%) -Granulation Quality Red Red -Texture (Kassandra-wound Skin Appearance) Assessed Assessed -Moisture (Kassandra-wound Skin Appearance) Assessed Assessed -Color (Kassandra-wound Skin Appearance) Assessed Assessed -Temperature (Kassandra-wound Skin No Abnormality No Abnormality Appearance) (Pt Warm) (Pt Warm) -Tenderness on Palpation (Kassandra-wound No No Skin Appearance) -Ulcer Cleansing Soap and Water Soap and Water -Foul Odor after Cleansing No No -Anesthetic Used 4% Lidocaine 5% Lidocaine Solution Gel #15 L Groin -Current Size (cm) - Length 1 5.5 -Current Size (cm) - Width 6 2 -Current Size (cm) - Depth 0.1 0.1 -Total Square Cm 6 11.0 -Date of Last Picture (Recall this 04/21/25 field) -Exudate Amt Medium Medium -Exudate Type Serosanguineous Serosanguineous -Wound Margin Distinct, Outline Attached -Granulation Amt Large (67-100%) Large (67-100%) -Granulation Quality Red Red -Texture (Kassandra-wound Skin Appearance) Assessed Assessed -Moisture (Kassandra-wound Skin Appearance) Assessed, Assessed Maceration -Color (Kassandra-wound Skin Appearance) Assessed Assessed -Temperature (Kassandra-wound Skin No Abnormality No Abnormality Appearance) (Pt Warm) (Pt Warm) -Tenderness on Palpation (Kassandra-wound No No Skin Appearance) -Ulcer Cleansing Soap and Water Soap and Water -Foul Odor after Cleansing No No -Anesthetic Used 4% Lidocaine 5% Lidocaine Solution Gel WC - Nurse 2 - General Ulcer CM Notes Start: 04/14/25 10:51 Freq: Status: Active Protocol: Activity Type Activity Date Activity User E-sign Co-sign Detail Recorded Client Recorded Date Recorded By Document 04/14/25 12:19 [id number] 04/14/25 12:24 Document 04/21/25 11:23 [id number] 04/21/25 11:45 04/14/25 04/21/25 12:19 11:23 Wound Center Nurse 2 #17 R groin -Time 12:19 11:23 -Correct Patient Yes Yes -Correct Side, Site, Position Yes Yes -Correct Procedure Yes Yes -Procedure Performed Yes Yes -Type of Procedure Debridement Debridement -Clinical Debridement Subcutaneous Subcutaneous -Tissue Removed Subcutaneous Subcutaneous -Post Debridement (cm) - Length 4.2 5.0 -Post Debridement (cm) - Width 2.5 2.0 -Post Debridement (cm) - Depth 0.2 0.1 -Total Square (Post) (cm) 10.50 10.00 -Area of Debridement (cm) - Length 4.2 5.0 -Area of Debridement (cm) - Width 2.5 2.0 -Total Square (Area) (cm) 10.50 10.00 -Tunneling No No -Undermining/Tunneling No No -Circular Undermining No No -Wound/Ulcer Outcome Not Healed Not Healed -Ulcer Cleansing Rinsed/ Rinsed/ Irrigated with Irrigated with Saline Saline -Foul Odor after Cleansing No No -Bioengineered Tissue Yes Yes -Type of Bioengineered Tissue Epifix Mesh Epifix Mesh -Expiration Date 09/09/29 09/09/29 -Product Lot Number [id number] -Percent Used 100 100 -Lot number of Saline Used [id number] -Bleeding Controlled with Pressure Pressure -Treatment Response Procedure Procedure Tolerated Well Tolerated Well -Offloading No No -Debridement - Subq, 1st 20sq cm No No -Apply Skin Sub - 1st 25 sq cm - Legs 1 1 -Epifix Mesh Application 1-4 (per sq 11 4 cm) #15 L Groin -Time 12:22 11:24 -Correct Patient Yes Yes -Correct Side, Site, Position Yes Yes -Correct Procedure Yes Yes -Procedure Performed Yes Yes -Type of Procedure Debridement Debridement -Clinical Debridement Subcutaneous Subcutaneous -Tissue Removed Subcutaneous Subcutaneous -Post Debridement (cm) - Length 4.5 3.7 -Post Debridement (cm) - Width 4.0 2.0 -Post Debridement (cm) - Depth 0.1 0.1 -Total Square (Post) (cm) 18.00 7.40 -Area of Debridement (cm) - Length 4.5 3.7 -Area of Debridement (cm) - Width 4.0 2.0 -Total Square (Area) (cm) 18.00 7.40 -Tunneling No No -Undermining/Tunneling No No -Circular Undermining No No -Wound/Ulcer Outcome Not Healed Not Healed -Ulcer Cleansing Rinsed/ Rinsed/ Irrigated with Irrigated with Saline Saline -Foul Odor after Cleansing No No -Bioengineered Tissue No No -Bleeding Controlled with Pressure Pressure -Treatment Response Procedure Procedure Tolerated Well Tolerated Well -Offloading No No -Debridement - Subq, 1st 20sq cm Yes Yes -Debridement, SubQ, ea addt'l 20sq cm 1 or part thereof Pain Scale: 0-10 Numeric Is Patient Pain Free? Yes Yes - Nurse 3 - General Ulcer D/C NN Start: 04/14/25 10:51 Freq: Status: Active Protocol: Activity Type Activity Date Activity User E-sign Co-sign Detail Recorded Client Recorded Date Recorded By Document 04/14/25 12:31 [id number] 04/14/25 12:31 KW Document 04/21/25 12:05 [id number] 04/21/25 12:05 KW 04/14/25 04/21/25 12:31 12:05 Wound Care Center Nurse 3 #17 R groin -Primary Dressing Covered/Secured with Dry Gauze, Dry Gauze & Secured with Roll Gauze, Tape Secured with Tape #15 L Groin -Primary Dressing Covered/Secured with Dry Gauze, Dry Gauze & Secured with Roll Gauze, Tape Secured with Tape Pain Scale: 0-10 Numeric Is Patient Pain Free? Yes Yes - Visit Discharge Discharge Condition Stable Stable Ambulatory Status Ambulatory Ambulatory,Cane Transportation Private Auto Private Auto Medication Reconcilliation completed & No No provided to patient/care provider Clinical Summary of Care Provided Yes Yes Additional Wound Wound debrided: right groin/inguinal ulcer Laterality: Right Type of Debridement: Excisional debridement Anesthesia Used: 4% Lidocaine Solution and 5% Lidocaine Gel Depth: Down to and including healthy tissue and in the subcutaneous layer Percentage of wound debrided: 100 Instrument Used: 5mm curette Tissue Removed: Yellow slough, devitalized tissue Severity: Fat Layer Exposed Amount of bleeding with debridement: Mild Bleeding Controlled with: Compression and gauze Patient tolerated procedure: Patient tolerated procedure well Assessment/Plan Assessment/Plan (1) Open wound of pubic region without complication: CODE(S): S31.000A - Unspecified open wound of lower back and pelvis without penetration into retroperitoneum, initial encounter QUALIFIERS: Encounter type: subsequent encounter Qualified Code(s): S31.000D - Unspecified open wound of lower back and pelvis without penetration into retroperitoneum, subsequent encounter (2) Open wound of inguinal region: CODE(S): S31.109A - Unspecified open wound of abdominal wall, unspecified quadrant without penetration into peritoneal cavity, initial encounter QUALIFIERS: Encounter type: subsequent encounter Qualified Code(s): S31.109D - Unspecified open wound of abdominal wall, unspecified quadrant without penetration into peritoneal cavity, subsequent encounter (3) Hypertension: CODE(S): I10 - Essential (primary) hypertension QUALIFIERS: Hypertension type: unspecified Qualified Code(s): I10 - Essential (primary) hypertension (4) Non-healing surgical wound: CODE(S): T81.89XA - Other complications of procedures, not elsewhere classified, initial encounter QUALIFIERS: Encounter type: subsequent encounter Qualified Code(s): T81.89XD - Other complications of procedures, not elsewhere classified, subsequent encounter (5) Hidradenitis suppurativa: CODE(S): L73.2 - Hidradenitis suppurativa (6) Skin ulcer of abdomen with fat layer exposed: CODE(S): L98.492 - Non-pressure chronic ulcer of skin of other sites with fat layer exposed (7) Skin ulcer of left groin with necrosis of muscle: CODE(S): L98.493 - Non-pressure chronic ulcer of skin of other sites with necrosis of muscle (8) Skin ulcer of right groin with fat layer exposed: CODE(S): L98.492 - Non-pressure chronic ulcer of skin of other sites with fat layer exposed PLAN: Plan Debridement performed today in clinic as annotated above. At home wound-care instructions: The patient will keep outer dressing clean and dry and change daily or as needed. He will not shower. Left groin will be dressed with Fibracol and Dakins to the superior HS outbreak. Epifix applied today per php wordpress developer guidelines to right groin/inguinal ulcer using 100% of product and rehydrated with saline, wound veil secured over product with steri-strips. Patient advised to keep this dry and intact. Due to his diabetes and the length of time he has had the ulcers, he would benefit from application of Epifix to decrease the length of wound healing and complications to these ulcers. Insurance has approved the application of Epifix. Off-loading: The patient was instructed to avoid pressure and friction on the affected areas. Reposition every 2 hours at minimum. Avoid prolonged standing and/or dangling of legs. When seated, feet should be elevated at chest level. Frequent ambulation is encouraged. Diet: Patient encouraged to increase protein intake while taking caution to avoid high carbohydrate and/or sugar intake. Labs/cultures/imaging: Wound culture positive for Pseudomonas, Staph and anaerobic bacteria. He was started on Metronidazole and will change to Acetic acid solution for the left groin per Dr. Valle. Follow-up: Return in 1 week for wound care follow up. Return sooner or report to the emergency room should symptoms worsen, or new symptoms arise. Note: [employer] speech recognition sand system operator software was used to create portions of this document. Sound-alike and misspelled words, as well as other sand system operator errors may be contained in the documentation.
--- NOTE | 2025-04-24 08:43 | WC ---
PHOTO 04/21/25 LEFT GROIN
--- NOTE | 2025-04-24 08:44 | WC ---
PHOTO 04/21/25 RIGHT GROIN
[2025-04-28 10:55] VITALS: BP 118/83; PULSE 70; RESP 18; TEMP 36.3
--- NOTE | 2025-04-28 13:12 | WC ---
PHOTO 04/28/25 RIGHT GROIN
--- NOTE | 2025-04-28 13:13 | WC ---
PHOTO 04/28/25 LEFT GROIN
--- NOTE | 2025-04-28 14:01 | PCM.WC.PN ---
History of Present Illness Date of Service: 04/28/25 Chief Complaint: surgical wounds of suprapubic and left/right groin/perineum History of Wound: Mr. Theron Magaña is a 40 y/o male who presents to the wound center today for evaluation and management of his intertriginous wounds as referred by his plastic surgeon Dr. Valle of [facility]. Mr. Magaña has Hidradenitis Suppurative. Mid-January, he had surgery by Dr. Larson to address his HS lesions within his groin. Many of these were able to be closed with sutures, but 2 were left open. He has a relatively small, superficial open wound midline pelvic region and a larger, deeper wound in the inguinal/gluteal cleft. His is a nurse practitioner and cares for his wounds at home. Right now, they are applying wet-to-dry Dakins dressings to the open wounds; cleansing closed wounds with Hibiclens; changing daily. He is currently on Augmentin at the direction of his plastic surgeon. He saw his surgeon this week and Ciprofloxacin was prescribed to treat Pseudomonas infection. He has been dealing with these and similar wound/HS lesions for many years. In the past, he has had wound vacs and the changes were very painful for him. He has tried a few biologics without consistent success; was recently started on one called Bimzelx but too soon to tell if it is providing improvement. Subjective Subjective Theron returns today for follow up of bilateral inguinal surgical wounds. He tolerated Epifix application to right inguinal area and Fibracol to the left inguinal area. His pain is better. He is having light to moderate drainage. He did develop opening/ulcer of his left groin inguinal area superior to the ulcer being treated that is draining and similar to previous HS episodes. He has been tolerating treatment with Acetic Acid to this area. He denies fever, chills, odor. Objective Data Objective Data Vital Signs: Vital Signs Temp Pulse Resp BP O2 Del Method 97.4 F L 70 18 118/83 H Room Air 04/28/25 10:55 04/28/25 10:55 04/28/25 10:55 04/28/25 10:55 04/28/25 10:55 Oxygen Delivery Method Room Air Lab / Micro Data Micro: Microbiology 04/14/25 12:14 Wound - Groin Gram Stain - Final 04/14/25 12:14 Wound - Groin Wound Culture - Final Pseudomonas aeruginosa Staphylococcus aureus 04/14/25 12:14 Wound - Groin Anaerobic Culture - Final Clostridium group Physical Exam Const alert, oriented x3 and no apparent distress General Appearance: cooperative and comfortable HEENT normocephalic and head/scalp atraumatic Resp normal respiratory effort Effort and Inspection: able to speak in complete sentences Cardio regular rate and regular rhythm Skin Wounds: wounds noted Wound Narrative: as in clinical panel suprabubic skin ulcer is epithelialized In the left inguinal area there is a large open surgical wound that has completely filled in and is flush with skin, without rolled edges and decreased in size right inguinal area there is a large surgical wound with good granulation tissue and minimal slough and decreased in size and depth left inguinal area, crease above ulcer there are 2 open ulcers that appear to be hidradenitis with cloudy yellow drainage Psych mental status grossly normal, thought process normal, cooperative and affect normal Debridement Note Debridement Note Wound debrided: left groin Laterality: Left Type of Debridement: Excisional debridement Anesthesia Used: 4% Lidocaine Solution and 5% Lidocaine Gel Depth: Down to and including healthy tissue and in the subcutaneous layer Percentage of wound debrided: 100 Instrument Used: 5mm curette Tissue Removed: Yellow slough, devitalized tissue Severity: Fat Layer Exposed Amount of bleeding with debridement: Mild Bleeding Controlled with: Compression and gauze Patient tolerated procedure: Patient tolerated procedure well Post-Debridement Measurements and Additional Note: Post-Debridement Measurements/Treatment - Nurse 1 - General Ulcer Assessment Start: 04/14/25 10:51 Freq: Status: Active Protocol: DESMOND Activity Type Activity Date Activity User E-sign Co-sign Detail Recorded Client Recorded Date Recorded By Document 04/14/25 10:51 [id number] 04/14/25 11:00 KW Document 04/21/25 10:46 KW [id number] 04/21/25 10:53 KW Document 04/28/25 10:55 KW [id number] 04/28/25 11:05 KW 04/14/25 04/21/25 04/28/25 10:51 10:46 10:55 - Today's Visit Information Type of service Follow-up Visit Follow-up Visit Follow-up Visit (Physician/AUTOMOTIVE PARTS INTERPRETER (Physician/AUTOMOTIVE PARTS INTERPRETER (Physician/AUTOMOTIVE PARTS INTERPRETER ) ) ) Arrival Mode Ambulatory Ambulatory Ambulatory,Cane Accompanied by Patient Identification Verified (Name & Yes No Yes ) Vital Signs Temperature (97.8 F-99.1 F) 96.6 F L 97.4 F L Temperature Source Temporal Temporal Temporal Pulse Rate (60-100) 69 70 Pulse Location Monitor Monitor Monitor Respiratory Rate (12-18) 18 16 18 Respiratory rate source Monitor Observation Observation Oxygen Delivery Method Room Air Room Air Room Air Blood Pressure (90/60-120/80) 114/77 118/83 H Blood Pressure Mean (mm Hg) 89 94 Source Monitor Monitor Monitor Position Semi-Fowlers Sitting Semi-Fowlers Blood Pressure Location Left Arm Right Arm Left Arm History Since Last Visit- (Skip if this is Patient's initial visit) Have you changed medications since your No No No last visit? Any new allergies or adverse reactions No No No Had a fall/change in ADL's that may No No No increase risk of falls Signs or symptoms of abuse and/or No No No neglect since last visit Have you been in the hospital since your No No No last visit? Has dressing in place as prescribed Yes Yes Yes Has compression in place as prescribed N/A N/A N/A Has offloadiing in place as prescribed N/A N/A N/A Experienced any changes in pain level or No No No management Left Footwear Regular Shoe Regular Shoe Regular Shoe Right Footwear Regular Shoe Regular Shoe Regular Shoe Pain Scale: 0-10 Numeric Is Patient Pain Free? Yes Yes Yes WC - Nurse 1 - General Ulcer Measurement Start: 04/14/25 10:51 Freq: Status: Active Protocol: Activity Type Activity Date Activity User E-sign Co-sign Detail Recorded Client Recorded Date Recorded By Document 04/14/25 10:51 KW [id number] 04/14/25 11:00 KW Document 04/21/25 10:46 KW [id number] 04/21/25 10:53 KW Document 04/28/25 10:55 KW [id number] 04/28/25 11:05 KW 04/14/25 04/21/25 04/28/25 10:51 10:46 10:55 Wound Center Nurse 1 #17 R groin -Current Size (cm) - Length 4 3 3.1 -Current Size (cm) - Width 2 1.5 0.5 -Current Size (cm) - Depth 0.3 0.2 0.2 -Total Square Cm 8 4.5 1.55 -Date of Last Picture (Recall this 04/21/25 04/28/25 field) -Exudate Amt Large Medium Medium -Exudate Type Serosanguineous Serosanguineous Serosanguineous -Wound Margin Thickened Thickened Distinct, Outline Attached -Granulation Amt Large (67-100%) Large (67-100%) Large (67-100%) -Granulation Quality Red Red Red -Texture (Kassandra-wound Skin Appearance) Assessed Assessed Assessed -Moisture (Kassandra-wound Skin Appearance) Assessed Assessed Assessed -Color (Kassandra-wound Skin Appearance) Assessed Assessed Assessed -Temperature (Kassandra-wound Skin No Abnormality No Abnormality No Abnormality Appearance) (Pt Warm) (Pt Warm) (Pt Warm) -Tenderness on Palpation (Kassandra-wound No No No Skin Appearance) -Ulcer Cleansing Soap and Water Soap and Water Soap and Water -Foul Odor after Cleansing No No No -Anesthetic Used 4% Lidocaine 5% Lidocaine 5% Lidocaine Solution Gel Gel #15 L Groin -Current Size (cm) - Length 1 5.5 4 -Current Size (cm) - Width 6 2 1.5 -Current Size (cm) - Depth 0.1 0.1 0.2 -Total Square Cm 6 11.0 6.0 -Date of Last Picture (Recall this 04/21/25 04/28/25 field) -Exudate Amt Medium Medium Medium -Exudate Type Serosanguineous Serosanguineous Serosanguineous -Wound Margin Distinct, Distinct, Outline Outline Attached Attached -Granulation Amt Large (67-100%) Large (67-100%) -Granulation Quality Red Red -Texture (Kassandra-wound Skin Appearance) Assessed Assessed Assessed -Moisture (Kassandra-wound Skin Appearance) Assessed, Assessed Assessed Maceration -Color (Kassandra-wound Skin Appearance) Assessed Assessed Assessed -Temperature (Kassandra-wound Skin No Abnormality No Abnormality No Abnormality Appearance) (Pt Warm) (Pt Warm) (Pt Warm) -Tenderness on Palpation (Kassandra-wound No No No Skin Appearance) -Ulcer Cleansing Soap and Water Soap and Water Soap and Water -Foul Odor after Cleansing No No No -Anesthetic Used 4% Lidocaine 5% Lidocaine 5% Lidocaine Solution Gel Gel WC - Nurse 2 - General Ulcer CM Notes Start: 04/14/25 10:51 Freq: Status: Active Protocol: Activity Type Activity Date Activity User E-sign Co-sign Detail Recorded Client Recorded Date Recorded By Document 04/14/25 12:19 [id number] 04/14/25 12:24 Document 04/21/25 11:23 [id number] 04/21/25 11:45 Document 04/28/25 11:14 [id number] 04/28/25 11:24 04/14/25 04/21/25 04/28/25 12:19 11:23 11:14 Wound Center Nurse 2 #17 R groin -Time 12:19 11:23 11:15 -Correct Patient Yes Yes Yes -Correct Side, Site, Position Yes Yes Yes -Correct Procedure Yes Yes Yes -Procedure Performed Yes Yes Yes -Type of Procedure Debridement Debridement Debridement -Clinical Debridement Subcutaneous Subcutaneous Subcutaneous -Tissue Removed Subcutaneous Subcutaneous Subcutaneous -Post Debridement (cm) - Length 4.2 5.0 3.7 -Post Debridement (cm) - Width 2.5 2.0 1.0 -Post Debridement (cm) - Depth 0.2 0.1 0.2 -Total Square (Post) (cm) 10.50 10.00 3.70 -Area of Debridement (cm) - Length 4.2 5.0 3.7 -Area of Debridement (cm) - Width 2.5 2.0 1.0 -Total Square (Area) (cm) 10.50 10.00 3.70 -Tunneling No No No -Undermining/Tunneling No No No -Circular Undermining No No No -Wound/Ulcer Outcome Not Healed Not Healed Not Healed -Ulcer Cleansing Rinsed/ Rinsed/ Rinsed/ Irrigated with Irrigated with Irrigated with Saline Saline Saline -Foul Odor after Cleansing No No No -Bioengineered Tissue Yes Yes No -Type of Bioengineered Tissue Epifix Mesh Epifix Mesh -Expiration Date 09/09/29 09/09/29 -Product Lot Number [id number] -Percent Used 100 100 -Lot number of Saline Used [id number] -Bleeding Controlled with Pressure Pressure Pressure -Treatment Response Procedure Procedure Procedure Tolerated Well Tolerated Well Tolerated Well -Offloading No No No -Debridement - Subq, 1st 20sq cm No No No -Apply Skin Sub - 1st 25 sq cm - Legs 1 1 -Epifix Mesh Application 1-4 (per sq 11 4 cm) #15 L Groin -Time 12:22 11:24 11:23 -Correct Patient Yes Yes Yes -Correct Side, Site, Position Yes Yes Yes -Correct Procedure Yes Yes Yes -Procedure Performed Yes Yes Yes -Type of Procedure Debridement Debridement Debridement -Clinical Debridement Subcutaneous Subcutaneous Subcutaneous -Tissue Removed Subcutaneous Subcutaneous Subcutaneous -Post Debridement (cm) - Length 4.5 3.7 4.1 -Post Debridement (cm) - Width 4.0 2.0 1.4 -Post Debridement (cm) - Depth 0.1 0.1 0.1 -Total Square (Post) (cm) 18.00 7.40 5.74 -Area of Debridement (cm) - Length 4.5 3.7 4.1 -Area of Debridement (cm) - Width 4.0 2.0 1.4 -Total Square (Area) (cm) 18.00 7.40 5.74 -Tunneling No No No -Undermining/Tunneling No No No -Circular Undermining No No No -Wound/Ulcer Outcome Not Healed Not Healed Not Healed -Ulcer Cleansing Rinsed/ Rinsed/ Rinsed/ Irrigated with Irrigated with Irrigated with Saline Saline Saline -Foul Odor after Cleansing No No No -Bioengineered Tissue No No No -Bleeding Controlled with Pressure Pressure Pressure -Treatment Response Procedure Procedure Procedure Tolerated Well Tolerated Well Tolerated Well -Offloading No No No -Debridement - Subq, 1st 20sq cm Yes Yes Yes -Debridement, SubQ, ea addt'l 20sq cm 1 or part thereof Pain Scale: 0-10 Numeric Is Patient Pain Free? Yes Yes Yes - Nurse 3 - General Ulcer D/C NN Start: 04/14/25 10:51 Freq: Status: Active Protocol: Activity Type Activity Date Activity User E-sign Co-sign Detail Recorded Client Recorded Date Recorded By Document 04/14/25 12:31 KW [id number] 04/14/25 12:31 KW Document 04/21/25 12:05 KW [id number] 04/21/25 12:05 KW Document 04/28/25 11:54 RB [id number] 04/28/25 11:56 RB Edit Result 04/28/25 11:54 RB (1) [id number] 04/28/25 11:57 RB (1) bilat upper thighs - Compression Wrap => Tapan Wrap 04/14/25 04/21/25 04/28/25 12:31 12:05 11:54 Wound Care Center Nurse 3 #17 R groin -Ulcer Cleansing Rinsed/ Irrigated with Saline -Primary Dressing Applied Fibracol Plus 4x4 -Other Dressing ABD -Primary Dressing Covered/Secured with Dry Gauze, Dry Gauze & Dry Gauze & Secured with Roll Gauze, Roll Gauze, Tape Secured with Secured with Tape Tape -Fibracol Plus 4x4 1 #15 L Groin -Ulcer Cleansing Rinsed/ Irrigated with Saline -Other Dressing fibracol / ABD -Primary Dressing Covered/Secured with Dry Gauze, Dry Gauze & Dry Gauze & Secured with Roll Gauze, Roll Gauze, Tape Secured with Secured with Tape Tape bilat upper thighs -Compression Wrap Tapan Wrap Treatment Response Procedure Tolerated Well Pain Scale: 0-10 Numeric Is Patient Pain Free? Yes Yes Yes WC - Visit Discharge Discharge Condition Stable Stable Stable Ambulatory Status Ambulatory Ambulatory,Cane Ambulatory Transportation Private Auto Private Auto Private Auto Medication Reconcilliation completed & No No No provided to patient/care provider Clinical Summary of Care Provided Yes Yes Yes Notes: TAPAN around dressing on thighs bilat Additional Wound Wound debrided: right groin/inguinal ulcer Laterality: Right Type of Debridement: Excisional debridement Anesthesia Used: 4% Lidocaine Solution and 5% Lidocaine Gel Depth: Down to and including healthy tissue and in the subcutaneous layer Percentage of wound debrided: 100 Instrument Used: 5mm curette Tissue Removed: Yellow slough, devitalized tissue Severity: Fat Layer Exposed Amount of bleeding with debridement: Mild Bleeding Controlled with: Compression and gauze Patient tolerated procedure: Patient tolerated procedure well Assessment/Plan Assessment/Plan (1) Open wound of pubic region without complication: CODE(S): S31.000A - Unspecified open wound of lower back and pelvis without penetration into retroperitoneum, initial encounter QUALIFIERS: Encounter type: subsequent encounter Qualified Code(s): S31.000D - Unspecified open wound of lower back and pelvis without penetration into retroperitoneum, subsequent encounter (2) Open wound of inguinal region: CODE(S): S31.109A - Unspecified open wound of abdominal wall, unspecified quadrant without penetration into peritoneal cavity, initial encounter QUALIFIERS: Encounter type: subsequent encounter Qualified Code(s): S31.109D - Unspecified open wound of abdominal wall, unspecified quadrant without penetration into peritoneal cavity, subsequent encounter (3) Hypertension: CODE(S): I10 - Essential (primary) hypertension QUALIFIERS: Hypertension type: unspecified Qualified Code(s): I10 - Essential (primary) hypertension (4) Non-healing surgical wound: CODE(S): T81.89XA - Other complications of procedures, not elsewhere classified, initial encounter QUALIFIERS: Encounter type: subsequent encounter Qualified Code(s): T81.89XD - Other complications of procedures, not elsewhere classified, subsequent encounter (5) Hidradenitis suppurativa: CODE(S): L73.2 - Hidradenitis suppurativa (6) Skin ulcer of abdomen with fat layer exposed: CODE(S): L98.492 - Non-pressure chronic ulcer of skin of other sites with fat layer exposed (7) Skin ulcer of left groin with necrosis of muscle: CODE(S): L98.493 - Non-pressure chronic ulcer of skin of other sites with necrosis of muscle (8) Skin ulcer of right groin with fat layer exposed: CODE(S): L98.492 - Non-pressure chronic ulcer of skin of other sites with fat layer exposed PLAN: Plan Debridement performed today in clinic as annotated above. At home wound-care instructions: Both left and right groin areas will be dressed with Fibracol and he will continue to use Acetic Acid wet to dry to the superior HS outbreak. Epifix was not staying in place for longer than a few days so we have decided to stop application for now. Due to his diabetes and the length of time he has had the ulcers, he would benefit from application of Epifix to decrease the length of wound healing and complications to these ulcers. Insurance has approved the application of Epifix. Off-loading: The patient was instructed to avoid pressure and friction on the affected areas. Reposition every 2 hours at minimum. Avoid prolonged standing and/or dangling of legs. When seated, feet should be elevated at chest level. Frequent ambulation is encouraged. Diet: Patient encouraged to increase protein intake while taking caution to avoid high carbohydrate and/or sugar intake. Labs/cultures/imaging: Wound culture positive for Pseudomonas, Staph and anaerobic bacteria. He was started on Metronidazole and will change to Acetic acid solution for the left groin per Dr. Valle. Follow-up: Return in 3 weeks for wound care follow up. Return sooner or report to the emergency room should symptoms worsen, or new symptoms arise. Note: [employer]text speech recognition fast food cashier software was used to create portions of this document. Sound-alike and misspelled words, as well as other fast food cashier errors may be contained in the documentation.
== END 2025-05-08 23:59 | disposition home or self-care (01) ==
LOC: WC 10:45
PROVIDERS: PCP Nurse Practitioner Family; Referring Provider Nurse Practitioner Family; Visit Provider Family Medicine
DX: E11.622 Type 2 diabetes mellitus with other skin ulcer (principal); L98.492 Non-pressure chronic ulcer of skin of other sites with fat layer exposed; L73.2 Hidradenitis suppurativa; T81.89XA Other complications of procedures, not elsewhere classified, initial encounter; I10 Essential (primary) hypertension
CPT/HCPCS: 11042; 11045; 15271; 87070; 87075; 87077; 87186; 87205; Q4186

== ENCOUNTER 2025-05-26 11:15 | Outpatient (RCR) | payer BC, SELFPAY ==
[2025-05-19 10:55] VITALS: BP 142/93; PULSE 77; RESP 16; TEMP 36.9
--- NOTE | 2025-05-19 13:02 | WC ---
PHOTO 05/19/25 LEFT GROIN
--- NOTE | 2025-05-19 13:04 | WC ---
PHOTO 05/19/25 LEFT GROIN
--- NOTE | 2025-05-19 13:04 | WC ---
PHOTO 05/19/25 RIGHT PETERSONIN
--- NOTE | 2025-05-19 13:14 | PCM.WC.PN ---
History of Present Illness Date of Service: 05/19/25 Chief Complaint: surgical wounds of suprapubic and left/right groin/perineum History of Wound: Mr. Theron Magaña is a 40 y/o male who presents to the wound center today for evaluation and management of his intertriginous wounds as referred by his plastic surgeon Dr. Valle of [facility]. Mr. Magaña has Hidradenitis Suppurative. Mid-January, he had surgery by Dr. Larson to address his HS lesions within his groin. Many of these were able to be closed with sutures, but 2 were left open. He has a relatively small, superficial open wound midline pelvic region and a larger, deeper wound in the inguinal/gluteal cleft. His is a nurse practitioner and cares for his wounds at home. Right now, they are applying wet-to-dry Dakins dressings to the open wounds; cleansing closed wounds with Hibiclens; changing daily. He is currently on Augmentin at the direction of his plastic surgeon. He saw his surgeon this week and Ciprofloxacin was prescribed to treat Pseudomonas infection. He has been dealing with these and similar wound/HS lesions for many years. In the past, he has had wound vacs and the changes were very painful for him. He has tried a few biologics without consistent success; was recently started on one called Bimzelx but too soon to tell if it is providing improvement. Subjective Subjective Theron returns today for follow up of bilateral inguinal surgical wounds. He continues Fibracol to the right and left inguinal areas. His pain is better. He is having light to moderate drainage. He did develop opening/ulcer of his left groin inguinal area superior to the ulcer being treated that is draining and similar to previous HS episodes. He has been tolerating treatment with Acetic Acid to this area. He denies fever, chills, odor. Objective Data Objective Data Vital Signs: Vital Signs Temp Pulse Resp BP O2 Del Method 98.5 F 77 16 142/93 H Room Air 05/19/25 10:55 05/19/25 10:55 05/19/25 10:55 05/19/25 10:55 05/19/25 10:55 Oxygen Delivery Method Room Air Physical Exam Const alert, oriented x3 and no apparent distress General Appearance: cooperative and comfortable HEENT normocephalic and head/scalp atraumatic Resp normal respiratory effort Effort and Inspection: able to speak in complete sentences Cardio regular rate and regular rhythm Skin Wounds: wounds noted Wound Narrative: as in clinical panel suprabubic skin ulcer is epithelialized In the left inguinal area very small shallow ulcer with granulation tissue and without rolled edges right inguinal area there is a healing surgical wound with good granulation tissue and minimal slough and decreased in size and depth left inguinal area, crease above ulcer there are 2 pinpoint ulcers that appear to be hidradenitis with clear yellow drainage Psych mental status grossly normal, thought process normal, cooperative and affect normal Debridement Note Debridement Note Wound debrided: right groin/inguinal ulcer Laterality: Right Type of Debridement: Excisional debridement Anesthesia Used: 4% Lidocaine Solution and 5% Lidocaine Gel Depth: Down to and including healthy tissue and in the subcutaneous layer Percentage of wound debrided: 100 Instrument Used: 3mm curette Tissue Removed: Yellow slough, devitalized tissue Severity: Fat Layer Exposed Amount of bleeding with debridement: Mild Bleeding Controlled with: Compression and gauze Patient tolerated procedure: Patient tolerated procedure well Post-Debridement Measurements and Additional Note: Post-Debridement Measurements/Treatment - Nurse 1 - General Ulcer Assessment Start: 05/19/25 10:55 Freq: Status: Active Protocol: DESMOND Activity Type Activity Date Activity User E-sign Co-sign Detail Recorded Client Recorded Date Recorded By Document 05/19/25 10:55 [facility] [id number] 05/19/25 11:07 [facility] 05/19/25 10:55 - Today's Visit Information Type of service Follow-up Visit (Physician/FINANCIAL REPORTING SPECIALIST ) Arrival Mode Ambulatory,Cane Transfer Assistance None Patient Identification Verified (Name & Yes ) Patient Requires Transmission-Based No Precautions Vital Signs Temperature (97.8 F-99.1 F) 98.5 F Temperature Source Temporal Pulse Rate (60-100) 77 Pulse Location Monitor Respiratory Rate (12-18) 16 Respiratory rate source Observation Oxygen Delivery Method Room Air Blood Pressure (90/60-120/80) 142/93 H Blood Pressure Mean (mm Hg) 109 Source Monitor Position Sitting History Since Last Visit- (Skip if this is Patient's initial visit) Have you changed medications since your No last visit? Any new allergies or adverse reactions No Had a fall/change in ADL's that may No increase risk of falls Signs or symptoms of abuse and/or No neglect since last visit Have you been in the hospital since your No last visit? Has dressing in place as prescribed Yes Has compression in place as prescribed N/A Has offloadiing in place as prescribed N/A Experienced any changes in pain level or No management Left Footwear Regular Shoe Right Footwear Regular Shoe Pain Scale: 0-10 Numeric Is Patient Pain Free? Yes WC - Nurse 1 - General Ulcer Measurement Start: 05/19/25 10:55 Freq: Status: Active Protocol: Activity Type Activity Date Activity User E-sign Co-sign Detail Recorded Client Recorded Date Recorded By Document 05/19/25 10:55 [facility] [id number] 05/19/25 11:07 [facility] 05/19/25 10:55 Wound Center Nurse 1 #17 R groin -Combined with other wound No -Current Size (cm) - Length 3 -Current Size (cm) - Width 1 -Current Size (cm) - Depth 0.5 -Total Square Cm 3 -Date of Last Picture (Recall this 05/19/25 field) -Photo Taken Yes -Exudate Amt Large -Exudate Type Serosanguineous -Wound Margin Distinct, Outline Attached -Granulation Amt Large (67-100%) -Granulation Quality Red -Slough/Fibrin Yes -Necrosis Amt Small (1-33%) -Necrotic Tissue Type Adherent Slough -Texture (Kassandra-wound Skin Appearance) Assessed, Scarring -Moisture (Kassandra-wound Skin Appearance) Assessed -Color (Kassandra-wound Skin Appearance) Assessed -Temperature (Kassandra-wound Skin No Abnormality Appearance) (Pt Warm) -Tenderness on Palpation (Kassandra-wound No Skin Appearance) -Ulcer Cleansing Soap and Water -Foul Odor after Cleansing No -Anesthetic Used 4% Lidocaine Solution #15 L Groin -Combined with other wound No -Current Size (cm) - Length 2.4 -Current Size (cm) - Width 0.2 -Current Size (cm) - Depth 0.3 -Total Square Cm 0.48 -Date of Last Picture (Recall this 05/19/25 field) -Tunneling No -Undermining/Tunneling No -Circular Undermining No -Exudate Amt Medium -Exudate Type Serosanguineous -Wound Margin Distinct, Outline Attached -Granulation Amt Large (67-100%) -Granulation Quality Red -Slough/Fibrin Yes -Necrosis Amt Small (1-33%) -Necrotic Tissue Type Adherent Slough -Texture (Kassandra-wound Skin Appearance) Assessed, Scarring -Moisture (Kassandra-wound Skin Appearance) Assessed -Color (Kassandra-wound Skin Appearance) Assessed -Temperature (Kassandra-wound Skin No Abnormality Appearance) (Pt Warm) -Tenderness on Palpation (Kassandra-wound No Skin Appearance) -Ulcer Cleansing Soap and Water -Foul Odor after Cleansing No -Anesthetic Used 4% Lidocaine Solution WC - Nurse 2 - General Ulcer CM Notes Start: 05/19/25 10:55 Freq: Status: Active Protocol: Activity Type Activity Date Activity User E-sign Co-sign Detail Recorded Client Recorded Date Recorded By Document 05/19/25 11:28 [id number] 05/19/25 11:35 05/19/25 11:28 Wound Center Nurse 2 #17 R groin -Time 11:28 -Correct Patient Yes -Correct Side, Site, Position Yes -Correct Procedure Yes -Procedure Performed Yes -Type of Procedure Debridement -Clinical Debridement Subcutaneous -Tissue Removed Subcutaneous -Post Debridement (cm) - Length 2.8 -Post Debridement (cm) - Width 0.5 -Post Debridement (cm) - Depth 0.3 -Total Square (Post) (cm) 1.40 -Area of Debridement (cm) - Length 2.8 -Area of Debridement (cm) - Width 0.5 -Total Square (Area) (cm) 1.40 -Tunneling No -Undermining/Tunneling No -Circular Undermining No -Wound/Ulcer Outcome Not Healed -Ulcer Cleansing Rinsed/ Irrigated with Saline -Foul Odor after Cleansing No -Bioengineered Tissue No -Bleeding Controlled with Pressure -Treatment Response Procedure Tolerated Well -Offloading No -Debridement - Subq, 1st 20sq cm Yes #15 L Groin -Time 11:28 -Correct Patient Yes -Correct Side, Site, Position Yes -Correct Procedure No -Procedure Performed No -Post Debridement (cm) - Length 0.5 -Post Debridement (cm) - Width 0.5 -Post Debridement (cm) - Depth 0.1 -Total Square (Post) (cm) 0.25 -Tunneling No -Undermining/Tunneling No -Circular Undermining No -Wound/Ulcer Outcome Not Healed -Foul Odor after Cleansing No -Bioengineered Tissue No -Bleeding Controlled with NA -Offloading No -Debridement - Open, 1st 20sq cm No -Debridement - Subq, 1st 20sq cm No -Debridement - Muscle / Fascia, 1st No 20sq cm -Debridement - Bone, 1st 20sq cm No Pain Scale: 0-10 Numeric Is Patient Pain Free? Yes - Nurse 3 - General Ulcer D/C NN Start: 05/19/25 10:55 Freq: Status: Active Protocol: Activity Type Activity Date Activity User E-sign Co-sign Detail Recorded Client Recorded Date Recorded By Document 05/19/25 11:58 [facility] [id number] 05/19/25 11:59 [facility] 05/19/25 11:58 Wound Care Center Nurse 3 #17 R groin -Ulcer Cleansing Rinsed/ Irrigated with Saline -Primary Dressing Applied Fibracol Plus 4x4 -Primary Dressing Covered/Secured with Dry Gauze,Dry Gauze & Roll Gauze,Secured with Tape -Fibracol Plus 4x4 1 #15 L Groin -Ulcer Cleansing Rinsed/ Irrigated with Saline -Other Dressing fibracol -Primary Dressing Covered/Secured with Dry Gauze & Roll Gauze, Secured with Tape Treatment Response Procedure Tolerated Well Pain Scale: 0-10 Numeric Is Patient Pain Free? Yes - Visit Discharge Discharge Condition Stable Ambulatory Status Ambulatory Transportation Private Auto Medication Reconcilliation completed & No provided to patient/care provider Clinical Summary of Care Provided Yes Additional Wound Wound debrided: left groin ulcer Laterality: Left Type of Debridement: Selective debridement Anesthesia Used: 4% Lidocaine Solution Depth: Down to and including healthy tissue Percentage of wound debrided: 100 Instrument Used: - (gauze) Tissue Removed: Yellow slough, devitalized tissue Severity: Fat Layer Exposed Amount of bleeding with debridement: Mild Bleeding Controlled with: Compression and gauze Patient tolerated procedure: Patient tolerated procedure well Assessment/Plan Assessment/Plan (1) Open wound of pubic region without complication: CODE(S): S31.000A - Unspecified open wound of lower back and pelvis without penetration into retroperitoneum, initial encounter QUALIFIERS: Encounter type: subsequent encounter Qualified Code(s): S31.000D - Unspecified open wound of lower back and pelvis without penetration into retroperitoneum, subsequent encounter (2) Open wound of inguinal region: CODE(S): S31.109A - Unspecified open wound of abdominal wall, unspecified quadrant without penetration into peritoneal cavity, initial encounter QUALIFIERS: Encounter type: subsequent encounter Qualified Code(s): S31.109D - Unspecified open wound of abdominal wall, unspecified quadrant without penetration into peritoneal cavity, subsequent encounter (3) Hypertension: CODE(S): I10 - Essential (primary) hypertension QUALIFIERS: Hypertension type: unspecified Qualified Code(s): I10 - Essential (primary) hypertension (4) Non-healing surgical wound: CODE(S): T81.89XA - Other complications of procedures, not elsewhere classified, initial encounter QUALIFIERS: Encounter type: subsequent encounter Qualified Code(s): T81.89XD - Other complications of procedures, not elsewhere classified, subsequent encounter (5) Hidradenitis suppurativa: CODE(S): L73.2 - Hidradenitis suppurativa (6) Skin ulcer of abdomen with fat layer exposed: CODE(S): L98.492 - Non-pressure chronic ulcer of skin of other sites with fat layer exposed (7) Skin ulcer of left groin with necrosis of muscle: CODE(S): L98.493 - Non-pressure chronic ulcer of skin of other sites with necrosis of muscle (8) Skin ulcer of right groin with fat layer exposed: CODE(S): L98.492 - Non-pressure chronic ulcer of skin of other sites with fat layer exposed PLAN: Plan Debridement performed today in clinic as annotated above. At home wound-care instructions: Both left and right groin areas will be dressed with Fibracol and he will continue to use Acetic Acid wet to dry to the superior HS outbreak. Epifix was not staying in place for longer than a few days so we have decided to stop application for now. Due to his diabetes and the length of time he has had the ulcers, he would benefit from application of Epifix to decrease the length of wound healing and complications to these ulcers. Insurance has approved the application of Epifix. Off-loading: The patient was instructed to avoid pressure and friction on the affected areas. Reposition every 2 hours at minimum. Avoid prolonged standing and/or dangling of legs. When seated, feet should be elevated at chest level. Frequent ambulation is encouraged. Diet: Patient encouraged to increase protein intake while taking caution to avoid high carbohydrate and/or sugar intake. Labs/cultures/imaging: Wound culture positive for Pseudomonas, Staph and anaerobic bacteria. He was started on Metronidazole and will change to Acetic acid solution for the left groin per Dr. Valle. Follow-up: Return in 1 week for wound care follow up. Return sooner or report to the emergency room should symptoms worsen, or new symptoms arise. Note: [employer] speech recognition senior informatica etl developer software was used to create portions of this document. Sound-alike and misspelled words, as well as other senior informatica etl developer errors may be contained in the documentation.
[2025-05-26 11:43] VITALS: BP 116/78; PULSE 77; RESP 16; TEMP 36.9
--- NOTE | 2025-05-26 15:29 | PN.PCM_ITS ---
History of Present Illness Date of Service: 05/26/25 Chief Complaint: surgical wounds of suprapubic and left/right groin/perineum History of Wound: Mr. Theron Magaña is a 40 y/o male who presents to the wound center today for evaluation and management of his intertriginous wounds as referred by his plastic surgeon Dr. Valle of [facility]. Mr. Magaña has Hidradenitis Suppurative. Mid-January, he had surgery by Dr. Larson to address his HS lesions within his groin. Many of these were able to be closed with sutures, but 2 were left open. He has a relatively small, superficial open wound midline pelvic region and a larger, deeper wound in the inguinal/gluteal cleft. His is a nurse practitioner and cares for his wounds at home. Right now, they are applying wet-to-dry Dakins dressings to the open wounds; cleansing closed wounds with Hibiclens; changing daily. He is currently on Augmentin at the direction of his plastic surgeon. He saw his surgeon this week and Ciprofloxacin was prescribed to treat Pseudomonas infection. He has been dealing with these and similar wound/HS lesions for many years. In the past, he has had wound vacs and the changes were very painful for him. He has tried a few biologics without consistent success; was recently started on one called Bimzelx but too soon to tell if it is providing improvement. Subjective Subjective Theron returns today for follow up of bilateral inguinal surgical wounds. He con tinues Fibracol to the right and left inguinal areas. His pain is better. He is having minimal drainage. He did develop opening/ulcer of his left groin inguinal area superior to the ulcer being treated that is draining and similar to previous HS episodes. He has been tolerating treatment with Acetic Acid to this area with improvement and less drainage. He denies fever, chills, odor. Objective Data Objective Data Vital Signs: Vital Signs Temp Pulse Resp BP O2 Del Method 98.5 F 77 16 116/78 Room Air 05/26/25 11:43 05/26/25 11:43 05/26/25 11:43 05/26/25 11:43 05/26/25 11:43 Oxygen Delivery Method Room Air Physical Exam Const alert, oriented x3 and no apparent distress General Appearance: cooperative and comfortable HEENT normocephalic and head/scalp atraumatic Resp normal respiratory effort Effort and Inspection: able to speak in complete sentences Cardio regular rate and regular rhythm Skin Wounds: wounds noted Wound Narrative: as in clinical panel suprabubic skin ulcer is epithelialized In the left inguinal area very small shallow ulcer with granulation tissue and without rolled edges right inguinal area there is a healing surgical wound with good granulation tissue and minimal slough and decreased in size and depth Psych mental status grossly normal, thought process normal, cooperative and affect normal Debridement Note Debridement Note Wound debrided: left groin ulcer Laterality: Left No debridement was completed: No debridement was completed today Post-Debridement Measurements and Additional Note: Post-Debridement Measurements/Treatment [facility] Nurse 1 - General Ulcer Assessment Start: 05/19/25 10:55 Freq: Status: Active Protocol: DESMOND Activity Type Activity Date Activity User E-sign Co-sign Detail Recorded Client Recorded Date Recorded By Document 05/19/25 10:55 [facility] [id number] 05/19/25 11:07 [facility] Document 05/26/25 11:43 [facility] [id number] 05/26/25 11:49 [facility] 05/19/25 05/26/25 10:55 11:43 - Today's Visit Information Type of service Follow-up Visit Follow-up Visit (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/BUMPER [employer]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 (Physician/BUMPER [employer] PAINTER ) ) Arrival Mode Ambulatory,Cane Ambulatory Transfer Assistance None None Patient Identification Verified (Name & Yes Yes ) Patient Requires Transmission-Based No No Precautions Vital Signs Temperature (97.8 F-99.1 F) 98.5 F 98.5 F Temperature Source Temporal Temporal Pulse Rate (60-100) 77 77 Pulse Location Monitor Monitor Respiratory Rate (12-18) 16 16 Respiratory rate source Observation Observation Oxygen Delivery Method Room Air Room Air Blood Pressure (90/60-120/80) 142/93 H 116/78 Blood Pressure Mean (mm Hg) 109 90 Source Monitor Monitor Position Sitting Sitting Blood Pressure Location Right Arm History Since Last Visit- (Skip if this is Patient's initial visit) Have you changed medications since your No No last visit? Any new allergies or adverse reactions No No Had a fall/change in ADL's that may No No increase risk of falls Signs or symptoms of abuse and/or No No neglect since last visit Have you been in the hospital since your No No last visit? Has dressing in place as prescribed Yes Yes Has compression in place as prescribed N/A N/A Has offloadiing in place as prescribed N/A N/A Experienced any changes in pain level or No No management Left Footwear Regular Shoe Regular Shoe Right Footwear Regular Shoe Regular Shoe Pain Scale: 0-10 Numeric Is Patient Pain Free? Yes Yes WC - Nurse 1 - General Ulcer Measurement Start: 05/19/25 10:55 Freq: Status: Active Protocol: Activity Type Activity Date Activity User E-sign Co-sign Detail Recorded Client Recorded Date Recorded By Document 05/19/25 10:55 [facility] [id number] 05/19/25 11:07 BMF Document 05/26/25 11:43 BM [id number] 05/26/25 11:49 BMF 05/19/25 05/26/25 10:55 11:43 [facility] Nurse 1 #17 R groin -Combined with other wound No No -Current Size (cm) - Length 3 1.5 -Current Size (cm) - Width 1 0.5 -Current Size (cm) - Depth 0.5 0.3 -Total Square Cm 3 0.75 -Date of Last Picture (Recall this 05/19/25 05/26/25 field) -Photo Taken Yes Yes -Epithelialization Small 1-33% -Tunneling No -Undermining/Tunneling No -Circular Undermining No -Exudate Amt Large Medium -Exudate Type Serosanguineous Serosanguineous -Wound Margin Distinct, Distinct, Outline Outline Attached Attached -Granulation Amt Large (67-100%) Large (67-100%) -Granulation Quality Red Red -Slough/Fibrin Yes No -Necrosis Amt Small (1-33%) None Present (0 %) -Necrotic Tissue Type Adherent Slough -Texture (Kassandra-wound Skin Appearance) Assessed, Assessed, Scarring Scarring -Moisture (Kassandra-wound Skin Appearance) Assessed Assessed -Color (Kassandra-wound Skin Appearance) Assessed Assessed -Temperature (Kassandra-wound Skin No Abnormality No Abnormality Appearance) (Pt Warm) (Pt Warm) -Tenderness on Palpation (Kassandra-wound No No Skin Appearance) -Ulcer Cleansing Soap and Water Rinsed/ Irrigated with Saline -Foul Odor after Cleansing No No -Anesthetic Used 4% Lidocaine 4% Lidocaine Solution Solution #15 L Groin -Combined with other wound No No -Current Size (cm) - Length 2.4 0.2 -Current Size (cm) - Width 0.2 1.3 -Current Size (cm) - Depth 0.3 0.1 -Total Square Cm 0.48 0.26 -Date of Last Picture (Recall this 05/19/25 05/26/25 field) -Photo Taken Yes -Epithelialization Small 1-33% -Tunneling No No -Undermining/Tunneling No No -Circular Undermining No No -Exudate Amt Medium Medium -Exudate Type Serosanguineous Serosanguineous -Wound Margin Distinct, Distinct, Outline Outline Attached Attached -Granulation Amt Large (67-100%) Large (67-100%) -Granulation Quality Red Red -Slough/Fibrin Yes Yes -Necrosis Amt Small (1-33%) Small (1-33%) -Necrotic Tissue Type Adherent Slough Adherent Slough -Texture (Kassandra-wound Skin Appearance) Assessed, Assessed, Scarring Scarring -Moisture (Kassandra-wound Skin Appearance) Assessed Assessed -Color (Kassandra-wound Skin Appearance) Assessed Assessed -Temperature (Kassandra-wound Skin No Abnormality No Abnormality Appearance) (Pt Warm) (Pt Warm) -Tenderness on Palpation (Kassandra-wound No No Skin Appearance) -Ulcer Cleansing Soap and Water Rinsed/ Irrigated with Saline -Foul Odor after Cleansing No No -Anesthetic Used 4% Lidocaine 4% Lidocaine Solution Solution WC - Nurse 2 - General Ulcer CM Notes Start: 05/19/25 10:55 Freq: Status: Active Protocol: Activity Type Activity Date Activity User E-sign Co-sign Detail Recorded Client Recorded Date Recorded By Document 05/19/25 11:28 [id number] 05/19/25 11:35 Document 05/26/25 12:40 DS [id number] 05/26/25 12:41 DS 05/19/25 05/26/25 11:28 12:40 Wound Center Nurse 2 #17 R groin -Time 11:28 12:40 -Correct Patient Yes Yes -Correct Side, Site, Position Yes Yes -Correct Procedure Yes -Procedure Performed Yes No -Type of Procedure Debridement -Clinical Debridement Subcutaneous -Tissue Removed Subcutaneous -Post Debridement (cm) - Length 2.8 1.6 -Post Debridement (cm) - Width 0.5 0.3 -Post Debridement (cm) - Depth 0.3 0.1 -Total Square (Post) (cm) 1.40 0.48 -Area of Debridement (cm) - Length 2.8 1.6 -Area of Debridement (cm) - Width 0.5 0.3 -Total Square (Area) (cm) 1.40 0.48 -Tunneling No No -Undermining/Tunneling No No -Circular Undermining No No -Wound/Ulcer Outcome Not Healed Not Healed -Ulcer Cleansing Rinsed/ Irrigated with Saline -Foul Odor after Cleansing No -Bioengineered Tissue No -Bleeding Controlled with Pressure -Treatment Response Procedure Tolerated Well -Offloading No -Debridement - Subq, 1st 20sq cm Yes #15 L Groin -Time 11:28 12:41 -Correct Patient Yes Yes -Correct Side, Site, Position Yes Yes -Correct Procedure No -Procedure Performed No No -Post Debridement (cm) - Length 0.5 0.3 -Post Debridement (cm) - Width 0.5 1.4 -Post Debridement (cm) - Depth 0.1 0.1 -Total Square (Post) (cm) 0.25 0.42 -Area of Debridement (cm) - Length 0.3 -Area of Debridement (cm) - Width 1.4 -Total Square (Area) (cm) 0.42 -Tunneling No No -Undermining/Tunneling No No -Circular Undermining No No -Wound/Ulcer Outcome Not Healed Not Healed -Foul Odor after Cleansing No -Bioengineered Tissue No -Bleeding Controlled with NA -Offloading No -Debridement - Open, 1st 20sq cm No -Debridement - Subq, 1st 20sq cm No -Debridement - Muscle / Fascia, 1st No 20sq cm -Debridement - Bone, 1st 20sq cm No Pain Scale: 0-10 Numeric Is Patient Pain Free? Yes Yes - Nurse 3 - General Ulcer D/C NN Start: 05/19/25 10:55 Freq: Status: Active Protocol: Activity Type Activity Date Activity User E-sign Co-sign Detail Recorded Client Recorded Date Recorded By Document 05/19/25 11:58 RB [id number] 05/19/25 11:59 RB Document 05/26/25 12:54 DL [id number] 05/26/25 12:55 DL 05/19/25 05/26/25 11:58 12:54 Wound Care Center Nurse 3 #17 R groin -Ulcer Cleansing Rinsed/ Irrigated with Saline -Primary Dressing Applied Fibracol Plus 4x4 -Primary Dressing Covered/Secured with Dry Gauze,Dry Gauze & Roll Gauze,Secured with Tape -Fibracol Plus 4x4 1 -Wound Comment(s) Pt healed/ discharged. Dressing applied per today. #15 L Groin -Ulcer Cleansing Rinsed/ Irrigated with Saline -Other Dressing fibracol -Primary Dressing Covered/Secured with Dry Gauze & Roll Gauze, Secured with Tape -Wound Comment(s) Dressing applied per today. Pt healed and discharged. Treatment Response Procedure Procedure Tolerated Well Tolerated Well Pain Scale: 0-10 Numeric Is Patient Pain Free? Yes Yes WC - Visit Discharge Discharge Condition Stable Stable Ambulatory Status Ambulatory Ambulatory Transportation Private Auto Private Auto Medication Reconcilliation completed & No provided to patient/care provider Clinical Summary of Care Provided Yes Additional Wound Wound debrided: right groin ulcer Laterality: Right Operative Diagnosis: no debridement completed due to no slough Assessment/Plan Assessment/Plan (1) Open wound of pubic region without complication: CODE(S): S31.000A - Unspecified open wound of lower back and pelvis without penetration into retroperitoneum, initial encounter QUALIFIERS: Encounter type: subsequent encounter Qualified Code(s): S31.000D - Unspecified open wound of lower back and pelvis without penetration into retroperitoneum, subsequent encounter (2) Open wound of inguinal region: CODE(S): S31.109A - Unspecified open wound of abdominal wall, unspecified quadrant without penetration into peritoneal cavity, initial encounter QUALIFIERS: Encounter type: subsequent encounter Qualified Code(s): S31.109D - Unspecified open wound of abdominal wall, unspecified quadrant without penetration into peritoneal cavity, subsequent encounter (3) Hypertension: CODE(S): I10 - Essential (primary) hypertension QUALIFIERS: Hypertension type: unspecified Qualified Code(s): I10 - Essential (primary) hypertension (4) Non-healing surgical wound: CODE(S): T81.89XA - Other complications of procedures, not elsewhere classified, initial encounter QUALIFIERS: Encounter type: subsequent encounter Qualified Code(s): T81.89XD - Other complications of procedures, not elsewhere classified, subsequent encounter (5) Hidradenitis suppurativa: CODE(S): L73.2 - Hidradenitis suppurativa (6) Skin ulcer of abdomen with fat layer exposed: CODE(S): L98.492 - Non-pressure chronic ulcer of skin of other sites with fat layer exposed (7) Skin ulcer of left groin with necrosis of muscle: CODE(S): L98.493 - Non-pressure chronic ulcer of skin of other sites with necrosis of muscle (8) Skin ulcer of right groin with fat layer exposed: CODE(S): L98.492 - Non-pressure chronic ulcer of skin of other sites with fat layer exposed PLAN: Plan Debridement performed today in clinic as annotated above. At home wound-care instructions: Both left and right groin areas will continue to be dressed with Fibracol and he will continue to use Acetic Acid wet to dry to the superior HS outbreak. Epifix was not staying in place for longer than a few days so we have decided to stop application for now. Due to his diabetes and the length of time he has had the ulcers, he would benefit from application of Epifix to decrease the length of wound healing and complications to these ulcers. Insurance has approved the application of Epifix. Off-loading: The patient was instructed to avoid pressure and friction on the affected areas. Reposition every 2 hours at minimum. Avoid prolonged standing and/or dangling of legs. When seated, feet should be elevated at chest level. Fr equent ambulation is encouraged. Diet: Patient encouraged to increase protein intake while taking caution to avoid high carbohydrate and/or sugar intake. Labs/cultures/imaging: Wound culture positive for Pseudomonas, Staph and anaerobic bacteria. He was started on Metronidazole and will change to Acetic acid solution for the left groin per Dr. Valle. Follow-up: He will be discharged from treatment and was advised to return if there is no improvement in his ulcer areas. Return sooner or report to the emergency room should symptoms worsen, or new symptoms arise. Note: Implisit speech recognition curer foam rubber software was used to create portions of this document. Sound-alike and misspelled words, as well as other curer foam rubber errors may be contained in the documentation.
--- NOTE | 2025-05-29 09:30 | WC ---
PHOTO 05/25/25 RIGHT GROIN
--- NOTE | 2025-05-29 09:39 | WC ---
PHOTO 05/25/25 LEFT GROIN
== END 2025-06-08 14:58 | disposition home or self-care (01) ==
LOC: WC 11:15
PROVIDERS: PCP Nurse Practitioner Family; Referring Provider Nurse Practitioner Family; Visit Provider Family Medicine
DX: L98.492 Non-pressure chronic ulcer of skin of other sites with fat layer exposed (principal); I10 Essential (primary) hypertension; T81.89XA Other complications of procedures, not elsewhere classified, initial encounter; L73.2 Hidradenitis suppurativa
CPT/HCPCS: 11042; 99213; G0463

== ENCOUNTER → 2025-09-25 | Outpatient (CLI) | payer BC, SELFPAY ==
[2025-09-25 15:17] LABS: Creatinine, Urine (random) 89.30 mg/dL (39.00-259.00); Microalbumin,Random Urine < 12.0 mg/L (<20 mg/L)
[2025-09-25 15:38] LABS: Cholesterol 108 mg/dL (<=200); Low Density Lipoprotein Calc. 39 mg/dL; Triglycerides 215 mg/dL; Very Low Density Lipoprotein 43 mg/dL (5-40); Vitamin D,25 Hydroxy 48.8 ng/mL (30-100); cholesterol:hdl ratio screen 3.09
[2025-09-25 15:44] LABS: AST(SGOT) 31 U/L (<=37); Alanine Aminotransfer ALT/SGPT 48 U/L (<=46); Albumin, Serum 4.3 g/dL (3.5-5.0); Alkaline Phosphatase 87 U/L (40-129); Anion Gap 13 (5-15); BUN 16 mg/dL (4-19); BUN/Creat Ratio 17.7 RATIO (10-20); Calcium,Total 9.6 mg/dL (7.6-11.0); Carbon Dioxide 23.7 mmol/L (21.0-32.0); Chloride 105 mmol/L (98-108); Globulin 2.9 g/dL (2.2-4.2); Glucose 168 mg/dL (70-99); Potassium 4.2 mmol/L (3.3-5.1)
== END | disposition home or self-care (01) ==
PROVIDERS: PCP Nurse Practitioner Family; Referring Provider Nurse Practitioner Family; Visit Provider Nurse Practitioner Family
DX: E11.65 Type 2 diabetes mellitus with hyperglycemia (principal)
CPT/HCPCS: 36415; 80053; 80061; 82043; 82306; 82570; 84443